=== PATIENT | male | born 1935 | race Caucasian/White ===

== ENCOUNTER → 2016-06-03 | Outpatient (CLI) | payer OTHER ==
[~2016-06-03] MED LIST: ASPCH81 PO; ASPI325T60 PO; ASPI81TA28 PO; BNC20 PO; CAPE150T PO; CYAN100T6 PO; ERGO500037 PO; Enteral Nutrition Formula PO; FERR1TAB23 PO; FRRS300 PO; FURO-85 PO; GLC/500 PO; LEVO25TA5 PO; LEVO50TA6 PO; LOSA50TA6 PO; MAGN400T6 PO; METO25TA3 PO; MGNO400 PO; NTRGSL/4 UT; NUTR-7 PO; OLME1TAB11 PO; OMEP20CA9 PO; ONDA8TAB6 PO; PANT40TA2 PO; POTA10CA28 PO; POTA10TA PO; PRED-301 PO; PRLSR20 PO; RXC5 PO; SIMV40TA2 PO; SYN25 PO; SYN75 PO; TAMS0.4C38 PO; VTMD PO; XLD/500 PO; [UNRECOGNIZED DRUG - CODE] PO; [UNRECOGNIZED DRUG - CODE] PO; [UNRECOGNIZED DRUG - OTHER] PO
[2016-06-03 09:49] LABS: CHOLESTEROL/HDL RATIO 3.1
== END | disposition home or self-care (01) ==
LOC: C.LAB1850 08:08
PROVIDERS: ATTEND Internal Medicine Cardiovascular Disease
DX: I25.10 Atherosclerotic heart disease of native coronary artery without angina pectoris (principal); E78.00 Pure hypercholesterolemia, unspecified

== ENCOUNTER → 2016-06-11 | Outpatient (CLI) | payer OTHER ==
--- NOTE | 2016-06-11 09:11 | DIAGNOSTIC IMAGING REPORT ---
PET/CT HISTORY: Colorectal carcinoma COLORECTAL CA TECHNIQUE: PET/CT was performed from the base of the skull through the pelvis following the intravenous administration of 14.5 mCi of F18-FDG. Non-contrast CT imaging was performed over the same range without breath-hold for attenuation correction of PET images and anatomic correlation, but not for primary interpretation as it is not of standard diagnostic quality. CT DOSE: COMPARISON: None. FINDINGS: HEAD AND NECK: There is no FDG-avid disease or significant lymphadenopathy in the imaged portions of the head and the neck. CHEST: There is right pleural effusion. Fibrotic and nodular changes of the pulmonary apices show no abnormal metabolic activity characteristics. There is no significant metabolically active hilar or mediastinal activity. There is an infrahilar right metabolically active nodule having SUV characteristics of approximately 2.2. No significant activity is identified within the pelvic pleural effusions. ABDOMEN/PELVIS: Potential low level activity of the central right and inferior right hepatic lobe which may indicate early metastatic disease although anatomic correlate is not seen in the few CT component. There is physiologic activity within the gastrointestinal and genitourinary tracts. There is no metabolically active periaortic adenopathy. There is physiologic activity within the urinary bladder. Inguinal regions appear unremarkable in terms of metabolic activity characteristics. MUSCULOSKELETAL: There is no FDG-avid or destructive bone lesion. IMPRESSION: 1. Right pleural effusion with at least one metabolically active nodule of the right infrahilar region. 2. Low-level foci of increased metabolic activity of the liver. 2 locations suggesting probable developing hepatic metastatic change. 3. The examination is suggestive of metastatic disease. Electronically signed by: Mike Thornton M.D. 06/11/2016 9:10 AM Dictated Date/Time: 06/11/2016 8:51 AM
== END | disposition home or self-care (01) ==
LOC: C.PET 06:28
PROVIDERS: ATTEND Internal Medicine Hematology & Oncology
DX: C18.7 Malignant neoplasm of sigmoid colon (principal); R91.1 Solitary pulmonary nodule

== ENCOUNTER 2016-06-14 13:52 | Inpatient (IN) | payer OTHER ==
[~2016-06-14] VITALS: Ht 165.1 cm; Wt 58.0 kg
[~2016-06-14 13:52] MED LIST changes: -ASPI325T60 PO; -ASPI81TA28 PO; -CAPE150T PO; -ERGO500037 PO; -Enteral Nutrition Formula PO; -FRRS300 PO; -FURO-85 PO; -LEVO50TA6 PO; -LOSA50TA6 PO; -MAGN400T6 PO; -MGNO400 PO; -NUTR-7 PO; -OLME1TAB11 PO; -ONDA8TAB6 PO; -PANT40TA2 PO; -POTA10CA28 PO; -POTA10TA PO; -PRED-301 PO; -PRLSR20 PO; -RXC5 PO; -SYN25 PO; -SYN75 PO; -VTMD PO; -XLD/500 PO; -[UNRECOGNIZED DRUG - CODE] PO; -[UNRECOGNIZED DRUG - OTHER] PO
[2016-06-14] MEDS ORDERED: SODIUM CHLORIDE 0.9% 1000ML 1,000 ML IV STA (14:19)
[2016-06-14] MEDS ORDERED: SODIUM CHLORIDE 0.9% 1000ML 500 ML IV STA (14:19)
[2016-06-14] MEDS ORDERED: ONDANSETRON INJ 2 MG/ML 2 ML VIAL IV STA ×2 (14:19→17:35)
--- NOTE | 2016-06-14 14:27 | EMERGENCY ROOM VISIT NOTE ---
History Report prepared by Vance: Cosme Dozier Under the Supervision of: Dr. Levy Salazar M.D. First contact with patient: 14:11 Chief Complaint: VOMITING Stated Complaint: PAIN IN STOMACH, THROWING UP History of Present Illness The patient is an 80 year old male who presents to the Emergency Room with complaints of episodes of vomiting that occurred around 14 hours ago. He states that he vomited 4 times in a row, and then he went to sleep. The patient says that he cannot eat anything without it coming back up. The patient's family notes that the patient was diagnosed with colon cancer a month ago, and is currently being worked up. The patient's family called the patient's primary care physician and cancer specialist earlier today, and the physicians recommended that the patient come here to be treated. The patient states that he has been feeling thirsty and dehydrated. He also notes that he was having abdominal pain when he was vomiting. Currently, he does not have any pain, but during his vomiting episodes, he said his pain was an 8 out of 10 in severity. The patient was sipping water this morning, but every time he sipped some water , he says that he would get abdominal pain. The patient's doctor says that this may be from being dehydrated. The patient's family notes that the patient was given a nausea pill earlier today. The patient denies any fevers, feelings of abdominal bloating, or melena. He says that he has been moving his bowels everyday, and had a small one this morning and one last night. The patient says that he has not had any recent sick contacts, and that he has not eaten any foods that would make him sick. The patient is known to be anemic. Source of History: patient, family Onset: Around 14 hours ago Position: other (global - vomiting) Symptom Intensity: 4 episodes Timing: other (episodes) Associated Symptoms: + abdominal pain, + nausea, No fevers, No melena Note: Associated symptoms: Feels thirsty and dehydrated. Denies abdominal bloating, bowel issues. Review of Systems See HPI for pertinent positives & negatives. A total of 10 systems reviewed and were otherwise negative. Past Medical & Surgical Medical Problems: (1) Coronary artery disease (2) Hypercholesteremia (3) Hypertension (4) Kidney stones (5) Myocardial infarct (6) Vertigo Family History FHx: heart disease FHx: kidney disease/stones Social History Smoking Status: Former Smoker Alcohol Use: none Drug Use: none Marital Status: Housing Status: lives with significant other Occupation Status: retired Current/Historical Medications Scheduled Cyanocobalamin (Vitamin B12 100 Mcg), 100 MCG PO DAILY Ferrous Sulfate (Iron), 325 MG PO DAILY Levothyroxine Sodium (Levothyroxine Sodium), 50 MCG PO DAILY Metformin Hcl (Glucophage), 500 MG PO BID Metoprolol Succ (Toprol Xl) (Toprol-Xl), 25 MG PO DAILY Nitroglycerin (Nitrostat), 0.4 MG UT PRN Olmesartan Medoxomil (Benicar), 20 MG PO DAILY Omeprazole (Prilosec), 1 CAP PO DAILY Simethicone (Mylanta Gas Minis), 311 MG PO DIRECTED Simvastatin (Zocor), 40 MG PO QPM Tamsulosin Hcl (Flomax), 0.4 MG PO DAILY Allergies Coded Allergies: Clarithromycin (Verified Allergy, Severe, "MAJOR RXN" ?, 06/12/16) Penicillins (Verified Allergy, Severe, "MAJOR RXN" ?, 06/12/16) Sulfa Antibiotics (Verified Allergy, Severe, "SULFA DRUGS": "MAJOR RXN"?, 06/12/16) Cephalosporins (Verified Allergy, Unknown, ?, 06/12/16) Diltiazem (Verified Allergy, Unknown, FLUSHING, 06/12/16) Morphine (Verified Allergy, Unknown, N/V, 06/12/16) Streptokinase (Verified Allergy, Unknown, ?, 06/12/16) Sulfonylureas (Verified Allergy, Unknown, RASH, 06/12/16) Codeine (Verified Adverse Reaction, Mild, NAUSEA / VOMITING, 06/12/16) Physical Exam Vital Signs Date Time Temp Pulse Resp B/P Pulse Ox O2 Delivery O2 Flow Rate FiO2 06/14/16 14:56 68 20 101/56 93 Room Air 06/14/16 13:55 36.9 74 20 98/58 96 Room Air Physical Exam GENERAL: Patient is in no acute distress. HEENT: No acute trauma, normocephalic atraumatic, mucous membranes dry, no nasal congestion, no scleral icterus. NECK: No stridor, no adenopathy, no meningismus, trachea is midline. LUNGS: Clear to auscultation bilaterally, no wheeze, no rhonchi, breath sounds equal. HEART: Without murmurs gallops or rubs, regular rate and rhythm. ABDOMEN: Soft, nontender, bowel sounds positive, no hernias, no peritonitis. Mild abdominal distension. EXTREMITIES: No cyanosis or edema, full range of motion of all the joints without pain or difficulty, no signs for acute trauma. NEUROLOGIC: Oriented x 3, no acute motor or sensory deficits, no focal weakness. SKIN: No rash, no jaundice, no diaphoresis. Medical Decision & Procedures ER Provider Diagnostic Interpretation: X ray results and stated below per my interpretation and radiologist interpretation. Other radiology results and stated below per my review and radiologist interpretation: CHEST ONE VIEW PORTABLE CLINICAL HISTORY: ABDOMINAL PAIN/GI pain COMPARISON STUDY: 02/15/2013 FINDINGS: The bones soft tissues and hemidiaphragms are normal. The cardiomediastinal silhouette is normal. The lungs are clear. The pulmonary vasculature is normal. Chronic right apical pleural and parenchymal scarring. IMPRESSION: Negative chest. Electronically signed by: Mike Thornton M.D. 06/14/2016 2:49 PM Dictated Date/Time: 06/14/2016 2:48 PM ABDOMEN AND PELVIS CT WITHOUT CONTRAST CT DOSE: 259.62 mGy.cm HISTORY: Pain ABD PAIN, POSSIBLE OBSTRUCTION, NO CONTRAST TECHNIQUE: Multiaxial CT images of the abdomen and pelvis were performed without contrast. COMPARISON STUDY: 10/29/2008 FINDINGS: Right pleural effusion. Mild bibasilar interstitial infiltrative-type changes. Trace amount of perihepatic ascites. Several nonobstructing renal calcifications. No evidence renal hydronephrosis. Chronic extrarenal pelvis on the right. Multiple fluid-filled somewhat distended loops small bowel. Appearance is consistent with that of distal small bowel partial obstructive change. Colon is negative for distention. Multiple bladder calculi are noted. Etiology of the obstructive process is not confirmed. There may be a trace amount of infiltrative change of the fat right lower quadrant which is nonspecific. Inguinal regions are unremarkable. IMPRESSION: 1. Partial distal small bowel obstruction with multiple fluid-filled slightly distended loops of small bowel. 2. Etiology is unknown. 3. Multiple renal calcifications as well as bladder calculi. 4. No evidence for colonic distention. 5. Trace trace ascites 6. Right pleural effusion. 7. Mild bibasilar interstitial infiltrative change. Electronically signed by: Mike Thornton M.D. 06/14/2016 4:00 PM Dictated Date/Time: 06/14/2016 3:54 PM Laboratory Results 06/14/16 14:35 Red Blood Count 4.07, Mean Corpuscular Volume 73.0, Mean Corpuscular Hemoglobin 21.9, Mean Corpuscular Hemoglobin Concent 30.0, Mean Platelet Volume 9.8, Neutrophils (%) (Auto) 72.4, Lymphocytes (%) (Auto) 19.2, Monocytes (%) (Auto) 7.8, Eosinophils (%) (Auto) 0.2, Basophils (%) (Auto) 0.2, Neutrophils # (Auto) 7.94, Lymphocytes # (Auto) 2.11, Monocytes # (Auto) 0.86, Eosinophils # (Auto) 0.02, Basophils # (Auto) 0.02 06/14/16 14:35 Test 06/14/16 14:35 White Blood Count 10.97 K/uL (4.8-10.8) Red Blood Count 4.07 M/uL (4.7-6.1) Hemoglobin 8.9 g/dL (14.0-18.0) Hematocrit 29.7 % (42-52) Mean Corpuscular Volume 73.0 fL (80-100) Mean Corpuscular Hemoglobin 21.9 pg (25-34) Mean Corpuscular Hemoglobin Concent 30.0 g/dl (32-36) Platelet Count 616 K/uL (130-400) Mean Platelet Volume 9.8 fL (7.4-10.4) Neutrophils (%) (Auto) 72.4 % Lymphocytes (%) (Auto) 19.2 % Monocytes (%) (Auto) 7.8 % Eosinophils (%) (Auto) 0.2 % Basophils (%) (Auto) 0.2 % Neutrophils # (Auto) 7.94 K/uL (1.4-6.5) Lymphocytes # (Auto) 2.11 K/uL (1.2-3.4) Monocytes # (Auto) 0.86 K/uL (0.11-0.59) Eosinophils # (Auto) 0.02 K/uL (0-0.5) Basophils # (Auto) 0.02 K/uL (0-0.2) RDW Standard Deviation 48.7 fL (36.4-46.3) RDW Coefficient of Variation 18.8 % (11.5-14.5) Immature Granulocyte % (Auto) 0.2 % Immature Granulocyte # (Auto) 0.02 K/uL (0.00-0.02) Hypochromasia PRESENT Anisocytosis PRESENT Ovalocytes 1+ Schistocytes 1+ Anion Gap 8.0 mmol/L (3-11) Estimated GFR () 72.6 Estimated GFR (Non- 62.6 BUN/Creatinine Ratio 20.9 (10-20) Calcium Level 8.2 mg/dl (8.5-10.1) Total Bilirubin 0.4 mg/dl (0.2-1) Aspartate Amino Transf (AST/SGOT) 16 U/L (15-37) Alanine Aminotransferase (ALT/SGPT) 11 U/L (12-78) Alkaline Phosphatase 76 U/L (45-117) Troponin I 0.030 ng/ml (0-0.045) Total Protein 7.2 gm/dl (6.4-8.2) Albumin 2.7 gm/dl (3.4-5.0) Globulin 4.5 gm/dl (2.5-4.0) Albumin/Globulin Ratio 0.6 (0.9-2) Lipase 47 U/L (73-393) 25-Hydroxy Vitamin D Total 7.0 ng/ml (30-100) Laboratory results reviewed by me. Medications Administered Medications (Trade) Dose Ordered Sig/Lenka Route Start Time Stop Time Status Last Admin Dose Admin Sodium Chloride (Nss 1000ml) 500 ml @ 999 mls/hr Q31M STAT IV 06/14/16 14:19 06/14/16 14:49 DC 06/14/16 14:19 999 MLS/HR Ondansetron HCl 4 mg 4 mg NOW STAT IV 06/14/16 14:19 06/14/16 14:22 DC 06/14/16 14:59 4 MG Sodium Chloride (Nss 1000ml) 1,000 ml @ 200 mls/hr Q5H STAT IV 06/14/16 14:19 06/14/16 18:44 DC 06/14/16 14:19 200 MLS/HR ECG Indication: vomiting Rate (beats per minute): 69 Rhythm: normal sinus Findings: PAC, no acute ischemic change (no obvious ischemia), other (RBBB) ED Course 1412: The patient was evaluated in room C12B. A complete history and physical exam was performed. 1419: Ordered NSS 1000 ml @ 200 mls/hr IV, Zofran Inj 4 mg IV, NSS 500 ml @ 999 mls/hr IV. 1610: I reevaluated the patient and updated his family. We will try to place an NG tube and see if it helps him. The patient verbally expressed understanding and agreement of the treatment plan. The patient will be evaluated for further treatment. 1629: I discussed the patient with Dr. Michele VÁSQUEZ general surgery - he says to talk to medicine. 1632: I discussed the patient with Dr. Steffanie VÁSQUEZ dentist private practice - he will evaluate the patient for further treatment. Medical Decision Differential diagnosis includes but is not limited to bowel obstruction, dehydration, electrolyte imbalance, viral illness, food borne illness, hernia. There is a mild leukocytosis, possibly consistent with pain or his vomiting. The patient is anemic however, his hemoglobin is improved from a few days ago. There was no significant electrolyte abnormality, kidney failure, hepatitis or pancreatitis. Chest x-ray does not show pneumonia or free air. EKG shows a sinus rhythm with PACs, there was no acute ischemia. A right bundle branch block was present. Abdominal and pelvis CT shows a small bowel obstruction. The patient received IV Zofran for nausea, IV saline for hydration. He did not require anything for pain. With the findings of bowel obstruction, I did order for an NG tube. I spoke to the patient about his findings, I talked to case management. I did speak with the on-call surgeon. The on-call hospitalist was then consulted. Admission/observation is warranted. Consults Time Called: 1620 Consulting Physician: Dr. Michele VÁSQUEZ general surgery Returned Call: 1629 I discussed the patient with Dr. Michele VÁSQUEZ general surgery - he says to talk to medicine. Additional Consults: Time Called: 1629 Consulted Physician: Dr. Steffanie VÁSQUEZ dentist private practice Returned Call: 1632 Additional Comments: I discussed the patient with Dr. Steffanie VÁSQUEZ dentist private practice - he will evaluate the patient for further treatment. Impression Primary Impression: Small bowel obstruction Additional Impressions: Dehydration Vomiting Scribe Attestation The scribe's documentation has been prepared under my direction and personally reviewed by me in its entirety. I confirm that the note above accurately reflects all work, treatment, procedures, and medical decision making performed by me. Departure Information Dispostion Being Evaluated By Hospitalist Sonido Rhodes M.D. (PCP) Patient Instructions My [facility] Problem Qualifiers
--- NOTE | 2016-06-14 14:50 | DIAGNOSTIC IMAGING REPORT ---
CHEST ONE VIEW PORTABLE CLINICAL HISTORY: ABDOMINAL PAIN/GI pain COMPARISON STUDY: 02/15/2013 FINDINGS: The bones soft tissues and hemidiaphragms are normal. The cardiomediastinal silhouette is normal. The lungs are clear. The pulmonary vasculature is normal. Chronic right apical pleural and parenchymal scarring. IMPRESSION: Negative chest. Electronically signed by: Mike Thornton M.D. 06/14/2016 2:49 PM Dictated Date/Time: 06/14/2016 2:48 PM
[2016-06-14 14:53] LABS: BASO % 0.2 %; BASO ABS # 0.02 K/uL (0-0.2); EOS % 0.2 %; HEMATOCRIT 29.7 % (42-52); IG% 0.2 %; LYMPH % 19.2 %; LYMPH ABS # 2.11 K/uL (1.2-3.4); MEAN CORPUSCULAR HEMOGLOBIN 21.9 pg (25-34); MEAN PLATELET VOLUME 9.8 fL (7.4-10.4); MONO % 7.8 %; NEUT % 72.4 %; PLATELET COUNT 616 K/uL (130-400); RED BLOOD COUNT 4.07 M/uL (4.7-6.1); WHITE BLOOD COUNT 10.97 K/uL (4.8-10.8)
[2016-06-14 15:10] LABS: ALT/SGPT 11 U/L (12-78); AST/SGOT 16 U/L (15-37); BLOOD UREA NITROGEN 23 mg/dl (7-18); BUN/CREATININE RATIO 20.9 (10-20); CALCIUM 8.2 mg/dl (8.5-10.1); CARBON DIOXIDE 30 mmol/L (21-32); CHLORIDE 107 mmol/L (98-107); GLUCOSE 111 mg/dl (70-99); POTASSIUM 3.9 mmol/L (3.5-5.1); SODIUM 145 mmol/L (136-145)
[2016-06-14 15:15] LABS: ALB/GLOB RATIO 0.6 (0.9-2); ALKALINE PHOSPHATASE 76 U/L (45-117)
[2016-06-14] MEDS ORDERED: OLME1TAB11 PO (15:17)
[2016-06-14 15:30] LABS: ANISOCYTOSIS PRESENT; COMPLETE YES; HYPOCHROMIA PRESENT; OVALOCYTES 1+; SCHISTOCYTES 1+
--- NOTE | 2016-06-14 16:01 | DIAGNOSTIC IMAGING REPORT ---
ABDOMEN AND PELVIS CT WITHOUT CONTRAST CT DOSE: 259.62 mGy.cm HISTORY: Pain ABD PAIN, POSSIBLE OBSTRUCTION, NO CONTRAST TECHNIQUE: Multiaxial CT images of the abdomen and pelvis were performed without contrast. COMPARISON STUDY: 10/29/2008 FINDINGS: Right pleural effusion. Mild bibasilar interstitial infiltrative-type changes. Trace amount of perihepatic ascites. Several nonobstructing renal calcifications. No evidence renal hydronephrosis. Chronic extrarenal pelvis on the right. Multiple fluid-filled somewhat distended loops small bowel. Appearance is consistent with that of distal small bowel partial obstructive change. Colon is negative for distention. Multiple bladder calculi are noted. Etiology of the obstructive process is not confirmed. There may be a trace amount of infiltrative change of the fat right lower quadrant which is nonspecific. Inguinal regions are unremarkable. IMPRESSION: 1. Partial distal small bowel obstruction with multiple fluid-filled slightly distended loops of small bowel. 2. Etiology is unknown. 3. Multiple renal calcifications as well as bladder calculi. 4. No evidence for colonic distention. 5. Trace trace ascites 6. Right pleural effusion. 7. Mild bibasilar interstitial infiltrative change. Electronically signed by: Mike Thornton M.D. 06/14/2016 4:00 PM Dictated Date/Time: 06/14/2016 3:54 PM
[2016-06-14] MEDS ORDERED: ONDANSETRON INJ 2 MG/ML 2 ML VIAL IV PRN ×2 (17:00→17:45)
[2016-06-14] MEDS ORDERED: MEPERIDINE HCL 25 MG/ML CARP IV PRN (17:45)
[2016-06-14] MEDS ORDERED: NITROGLYCERIN 0.4 MG SL PER TAB CHARGE SL PRN (17:45)
--- NOTE | 2016-06-14 17:51 | History and Physical ---
History & Physical Date & Time of Service: June 14, 2016 at 17:51 Chief Complaint: Pain In Stomach, Throwing Up Primary Care Physician: Sonido Riojas M.D. Past Medical/Surgical History Medical Problems: (1) Coronary artery disease Status: Chronic (2) Hypercholesteremia Status: Chronic (3) Hypertension Status: Chronic (4) Kidney stones Status: Chronic (5) Myocardial infarct Status: Resolved (6) Vertigo Status: Chronic Family History FHx: heart disease FHx: kidney disease/stones Social History Smoking Status: Former Smoker Drug Use: none Marital Status: Housing status: lives with family Occupational Status: retired Immunizations History of Influenza Vaccine: Yes Influenza Vaccine Date: Nov 03, 2012 History of Tetanus Vaccine?: UTD History of Pneumococcal: Unknown History of Hepatitis B Vaccine: Unknown Multi-Drug Resistant Organisms History of MDRO: No Allergies Coded Allergies: Clarithromycin (Verified Allergy, Severe, "MAJOR RXN" ?, 06/12/16) Penicillins (Verified Allergy, Severe, "MAJOR RXN" ?, 06/12/16) Sulfa Antibiotics (Verified Allergy, Severe, "SULFA DRUGS": "MAJOR RXN"?, 06/12/16) Cephalosporins (Verified Allergy, Unknown, ?, 06/12/16) Diltiazem (Verified Allergy, Unknown, FLUSHING, 06/12/16) Morphine (Verified Allergy, Unknown, N/V, 06/12/16) Streptokinase (Verified Allergy, Unknown, ?, 06/12/16) Sulfonylureas (Verified Allergy, Unknown, RASH, 06/12/16) Codeine (Verified Adverse Reaction, Mild, NAUSEA / VOMITING, 06/12/16) Home Medications Scheduled Cyanocobalamin (Vitamin B12 100 Mcg), 100 MCG PO DAILY Ferrous Sulfate (Iron), 325 MG PO DAILY Levothyroxine Sodium (Levothyroxine Sodium), 50 MCG PO DAILY Metformin Hcl (Glucophage), 500 MG PO BID Metoprolol Succ (Toprol Xl) (Toprol-Xl), 25 MG PO DAILY Nitroglycerin (Nitrostat), 0.4 MG UT PRN Olmesartan Medoxomil (Benicar), 20 MG PO DAILY Omeprazole (Prilosec), 1 CAP PO DAILY Simethicone (Mylanta Gas Minis), 311 MG PO DIRECTED Simvastatin (Zocor), 40 MG PO QPM Tamsulosin Hcl (Flomax), 0.4 MG PO DAILY Physical Exam Vital Signs Date Time Temp Pulse Resp B/P Pulse Ox O2 Delivery O2 Flow Rate FiO2 06/14/16 17:13 74 18 108/58 95 Room Air 06/14/16 14:56 68 20 101/56 93 Room Air 06/14/16 13:55 36.9 74 20 98/58 96 Room Air Diagnostics Laboratory Results Results Past 24 Hours Test 06/14/16 14:35 Range/Units White Blood Count 10.97 4.8-10.8 K/uL Red Blood Count 4.07 4.7-6.1 M/uL Hemoglobin 8.9 14.0-18.0 g/dL Hematocrit 29.7 42-52 % Mean Corpuscular Volume 73.0 80-100 fL Mean Corpuscular Hemoglobin 21.9 25-34 pg Mean Corpuscular Hemoglobin Concent 30.0 32-36 g/dl Platelet Count 616 130-400 K/uL Mean Platelet Volume 9.8 7.4-10.4 fL Neutrophils (%) (Auto) 72.4 % Lymphocytes (%) (Auto) 19.2 % Monocytes (%) (Auto) 7.8 % Eosinophils (%) (Auto) 0.2 % Basophils (%) (Auto) 0.2 % Neutrophils # (Auto) 7.94 1.4-6.5 K/uL Lymphocytes # (Auto) 2.11 1.2-3.4 K/uL Monocytes # (Auto) 0.86 0.11-0.59 K/uL Eosinophils # (Auto) 0.02 0-0.5 K/uL Basophils # (Auto) 0.02 0-0.2 K/uL RDW Standard Deviation 48.7 36.4-46.3 fL RDW Coefficient of Variation 18.8 11.5-14.5 % Immature Granulocyte % (Auto) 0.2 % Immature Granulocyte # (Auto) 0.02 0.00-0.02 K/uL Hypochromasia PRESENT Anisocytosis PRESENT Ovalocytes 1+ Schistocytes 1+ Sodium Level 145 136-145 mmol/L Potassium Level 3.9 3.5-5.1 mmol/L Chloride Level 107 98-107 mmol/L Carbon Dioxide Level 30 21-32 mmol/L Anion Gap 8.0 3-11 mmol/L Blood Urea Nitrogen 23 7-18 mg/dl Creatinine 1.10 0.60-1.40 mg/dl Estimated GFR () 72.6 Estimated GFR (Non- 62.6 BUN/Creatinine Ratio 20.9 10-20 Random Glucose 111 70-99 mg/dl Calcium Level 8.2 8.5-10.1 mg/dl Total Bilirubin 0.4 0.2-1 mg/dl Aspartate Amino Transf (AST/SGOT) 16 15-37 U/L Alanine Aminotransferase (ALT/SGPT) 11 12-78 U/L Alkaline Phosphatase 76 45-117 U/L Troponin I 0.030 0-0.045 ng/ml Total Protein 7.2 6.4-8.2 gm/dl Albumin 2.7 3.4-5.0 gm/dl Globulin 4.5 2.5-4.0 gm/dl Albumin/Globulin Ratio 0.6 0.9-2 Lipase 47 73-393 U/L Impression Assessment and Plan admit #[id number] VTE Prophylaxis VTE Risk Assessment Done? Y/N: Yes Risk Level: Moderate Given or contraindicated: Unfractionated heparin SQ
[2016-06-14 18:40] VITALS: BP 105/58; PULSE 71; TEMP 37.1; O2SAT 96
[2016-06-14] MEDS ORDERED: DEXTROSE 50% 50 ML SYR IV PRN (19:00)
[2016-06-14] MEDS ORDERED: IRON SUCROSE INJ 100 MG in SODIUM CHLORIDE 0.9% 100ML 100 ML IV SCH (19:00)
[2016-06-14] MEDS ORDERED: GLUCOSE 40% GEL 15 GM TUBE PO PRN (19:00)
[2016-06-14] MEDS ORDERED: GLUCAGON FOR INJ 1 MG VIAL SQ PRN (19:00)
[2016-06-14] MEDS ORDERED: GLUCOSE 10 TABS/TUBE PO PRN (19:00)
[2016-06-14] MEDS ORDERED: MEPERIDINE HCL 25 MG/ML CARP IV ONE (19:00)
[2016-06-14 19:11] LABS: URINE APPEARANCE CLEAR (CLEAR); URINE BILIRUBIN NEG (NEG); URINE COLOR DK YELLOW; URINE NITRITE NEG (NEG); URINE SPECIFIC GRAVITY 1.023 (1.000-1.030); UROBILINOGEN NEG (NEG); ZZUR CULT IF INDIC CLEAN CATCH NO
[2016-06-14 19:18] LABS: MANUAL MICROSCOPIC REQUIRED? NO; REVIEW REQ? NO
[2016-06-14 19:36] VITALS: BP 105/58; PULSE 71; TEMP 37.1; Ht 165.1 cm; Wt 58.0 kg
[2016-06-14] MEDS: SODIUM CHLOR 0.45% + 20MEQ KCL 1,000 ML IV SCH (19:59)
[2016-06-14] MEDS ORDERED: NURSING VERBAL MED ORDER ONE (21:00)
[2016-06-14] MEDS ORDERED: INSULIN ASPART 100 UNITS/ML 3 ML PEN SC SCH (21:00)
[2016-06-14] MEDS: HEPARIN SOD 5000 UNIT/0.5 ML CARP SQ SCH (22:07)
[2016-06-14 23:15] VITALS: BP 99/61; PULSE 64; TEMP 36.4; O2SAT 94
[2016-06-15] MEDS: SODIUM CHLOR 0.45% + 20MEQ KCL 1,000 ML IV SCH ×2 (05:57→16:48)
[2016-06-15] MEDS: INSULIN ASPART 100 UNITS/ML 3 ML PEN SC SCH ×4 (06:00→18:29)
[2016-06-15 06:52] LABS: BASO % 0.1 %; BASO ABS # 0.01 K/uL (0-0.2); EOS % 0.7 %; IG% 0.3 %; LYMPH % 25.7 %; LYMPH ABS # 1.89 K/uL (1.2-3.4); MEAN CORPUSCULAR HEMOGLOBIN 21.6 pg (25-34); MEAN CORPUSCULAR HGB CONC 29.3 g/dl (32-36); MEAN PLATELET VOLUME 9.8 fL (7.4-10.4); MONO % 7.4 %; NEUT % 65.8 %; PLATELET COUNT 487 K/uL (130-400); RED BLOOD COUNT 3.65 M/uL (4.7-6.1); WHITE BLOOD COUNT 7.34 K/uL (4.8-10.8)
[2016-06-15 07:11] VITALS: BP 89/53; PULSE 55; TEMP 36.4; O2SAT 94
[2016-06-15 07:22] LABS: BUN/CREATININE RATIO 22.2 (10-20); CALCIUM 7.2 mg/dl (8.5-10.1); CREATININE 0.86 mg/dl (0.60-1.40)
[2016-06-15 07:36] LABS: ANISOCYTOSIS PRESENT; COMPLETE YES; OVALOCYTES 2+; SCHISTOCYTES OCCASIONAL
[2016-06-15] MEDS: PANTOprazole INJ 40 MG in SYRINGE 0 ML IV SCH ×2 (08:58→21:07)
[2016-06-15] MEDS: HEPARIN SOD 5000 UNIT/0.5 ML CARP SQ SCH ×2 (09:06→21:07)
[2016-06-15 10:24] VITALS: BP 90/55; PULSE 60
[2016-06-15 11:21] LABS: HEMATOCRIT 26.8 % (42-52)
[2016-06-15 11:45] LABS: TOTAL IRON BINDING CAPACITY 202 mcg/dl (250-450)
--- NOTE | 2016-06-15 12:06 | Progress Note ---
Subjective Date of Service: June 15, 2016. Subjective pt seen with NGT still having some loose stool, abdominal pain in lower quadrants, family at bedside and updated Problem List Medical Problems: (1) Dehydration Status: Acute (2) Small bowel obstruction Status: Acute (3) Vomiting Status: Acute Review of Systems Constitutional: + fatigue, + weakness, No chills, No fever Respiratory: No cough, No dyspnea on exertion, No shortness of breath Cardiac: No chest pain, No edema Abdomen: + diarrhea, + nausea, + pain, + vomiting Male : No dysuria, No urinary frequency Objective Vital Signs Date Time Temp Pulse Resp B/P Pulse Ox O2 Delivery O2 Flow Rate FiO2 06/15/16 10:24 60 90/55 06/15/16 07:45 Room Air 06/15/16 07:11 36.4 55 16 89/53 94 Room Air 06/15/16 00:20 Room Air 06/14/16 23:15 36.4 64 18 99/61 94 Room Air 06/14/16 19:36 37.1 71 12 105/58 Room Air 06/14/16 18:40 37.1 71 12 105/58 96 Room Air 06/14/16 18:25 68 20 100/55 96 06/14/16 17:13 74 18 108/58 95 Room Air 06/14/16 14:56 68 20 101/56 93 Room Air 06/14/16 13:55 36.9 74 20 98/58 96 Room Air Physical Exam General Appearance: + moderate distress, + thin Neck: supple, no JVD Respiratory/Chest: chest non-tender, lungs clear Cardiovascular: regular rate, rhythm, no murmur Abdomen: + abnormal bowel sounds, + distended, + guarding, + tenderness Extremities: no pedal edema, no calf tenderness Neurologic/Psychiatric: alert, oriented x 3 Laboratory Results Last 24 Hours Test 06/14/16 14:35 06/14/16 18:55 06/14/16 19:30 06/15/16 00:17 White Blood Count 10.97 K/uL Red Blood Count 4.07 M/uL Hemoglobin 8.9 g/dL Hematocrit 29.7 % Mean Corpuscular Volume 73.0 fL Mean Corpuscular Hemoglobin 21.9 pg Mean Corpuscular Hemoglobin Concent 30.0 g/dl Platelet Count 616 K/uL Mean Platelet Volume 9.8 fL Neutrophils (%) (Auto) 72.4 % Lymphocytes (%) (Auto) 19.2 % Monocytes (%) (Auto) 7.8 % Eosinophils (%) (Auto) 0.2 % Basophils (%) (Auto) 0.2 % Neutrophils # (Auto) 7.94 K/uL Lymphocytes # (Auto) 2.11 K/uL Monocytes # (Auto) 0.86 K/uL Eosinophils # (Auto) 0.02 K/uL Basophils # (Auto) 0.02 K/uL RDW Standard Deviation 48.7 fL RDW Coefficient of Variation 18.8 % Immature Granulocyte % (Auto) 0.2 % Immature Granulocyte # (Auto) 0.02 K/uL Hypochromasia PRESENT Anisocytosis PRESENT Ovalocytes 1+ Schistocytes 1+ Sodium Level 145 mmol/L Potassium Level 3.9 mmol/L Chloride Level 107 mmol/L Carbon Dioxide Level 30 mmol/L Anion Gap 8.0 mmol/L Blood Urea Nitrogen 23 mg/dl Creatinine 1.10 mg/dl Estimated GFR () 72.6 Estimated GFR (Non- 62.6 BUN/Creatinine Ratio 20.9 Random Glucose 111 mg/dl Calcium Level 8.2 mg/dl Total Bilirubin 0.4 mg/dl Aspartate Amino Transf (AST/SGOT) 16 U/L Alanine Aminotransferase (ALT/SGPT) 11 U/L Alkaline Phosphatase 76 U/L Troponin I 0.030 ng/ml Total Protein 7.2 gm/dl Albumin 2.7 gm/dl Globulin 4.5 gm/dl Albumin/Globulin Ratio 0.6 Lipase 47 U/L 25-Hydroxy Vitamin D Total 7.0 ng/ml Urine Color DK YELLOW Urine Appearance CLEAR Urine pH 5.0 Urine Specific [place] 1.023 Urine Protein NEG Urine Glucose (UA) NEG Urine Ketones TRACE Urine Occult Blood NEG Urine Nitrite NEG Urine Bilirubin NEG Urine Urobilinogen NEG Urine Leukocyte Esterase NEG Bedside Glucose 107 mg/dl 88 mg/dl Test 06/15/16 06:01 06/15/16 06:19 06/15/16 11:00 Bedside Glucose 87 mg/dl White Blood Count 7.34 K/uL Red Blood Count 3.65 M/uL Hemoglobin 7.9 g/dL 8.1 g/dL Hematocrit 27.0 % 26.8 % Mean Corpuscular Volume 74.0 fL Mean Corpuscular Hemoglobin 21.6 pg Mean Corpuscular Hemoglobin Concent 29.3 g/dl Platelet Count 487 K/uL Mean Platelet Volume 9.8 fL Neutrophils (%) (Auto) 65.8 % Lymphocytes (%) (Auto) 25.7 % Monocytes (%) (Auto) 7.4 % Eosinophils (%) (Auto) 0.7 % Basophils (%) (Auto) 0.1 % Neutrophils # (Auto) 4.83 K/uL Lymphocytes # (Auto) 1.89 K/uL Monocytes # (Auto) 0.54 K/uL Eosinophils # (Auto) 0.05 K/uL Basophils # (Auto) 0.01 K/uL RDW Standard Deviation 50.0 fL RDW Coefficient of Variation 18.9 % Immature Granulocyte % (Auto) 0.3 % Immature Granulocyte # (Auto) 0.02 K/uL Anisocytosis PRESENT Ovalocytes 2+ Schistocytes OCCASIONAL Sodium Level 145 mmol/L Potassium Level 4.0 mmol/L Chloride Level 111 mmol/L Carbon Dioxide Level 27 mmol/L Anion Gap 7.0 mmol/L Blood Urea Nitrogen 19 mg/dl Creatinine 0.86 mg/dl Est Creatinine Clear Calc Drug Dose 55.3 ml/min Estimated GFR () 94.3 Estimated GFR (Non- 81.3 BUN/Creatinine Ratio 22.2 Random Glucose 84 mg/dl Calcium Level 7.2 mg/dl Iron Level 43 mcg/dl Total Iron Binding Capacity 202 mcg/dl Assessment and Plan 80 M with recent diagnosis of colon cancer and some concern for small mets on recent PET scan here with SBO SBO ngt is placed and surgical consult symptom control and hydration anemia, iron deficiency, chronic disease with concern for acute blood loss component, follow hgb and on ppi IV HTN holding metoprolol watch for rebound tachy BPH holding flomax may need nguyen DVT prevention heparin cautiously with concern for anemia
[2016-06-15 15:13] VITALS: BP 106/57; PULSE 56; TEMP 36.5; O2SAT 98
[2016-06-15 16:00] VITALS: O2SAT 98
[2016-06-15] MEDS ORDERED: NURSING VERBAL MED ORDER ONE (18:45)
[2016-06-15] MEDS: LACTATED RINGER'S 1000ML 1,000 ML IV SCH (18:52)
[2016-06-15 23:00] VITALS: BP 100/47; PULSE 65; TEMP 37; O2SAT 96
[2016-06-16] MEDS ORDERED: NURSING VERBAL MED ORDER ONE (00:15)
[2016-06-16] MEDS: LACTATED RINGER'S 1000ML 1,000 ML IV SCH ×2 (04:54→16:37)
--- NOTE | 2016-06-16 05:31 | SURGICAL CONSULTATION ---
DATE OF CONSULTATION: 06/15/2016 HISTORY OF PRESENT ILLNESS: I have been asked by Dr. Valiente to see this 80-year-old male who has a diagnosis of colon cancer that is now undergoing further workup and presented to the Emergency Room with a 1 day history of nausea, vomiting, and abdominal pain. He had never had this before. He had multiple episodes of vomiting. He was not able to keep anything down that he would eat. The discomfort was crampy in nature, at times but sharp in nature. There was some relief when he would vomit. He had no hematemesis. His bowels had been moving on a daily basis. There was 1 small bowel movement on the day of admission. He has not had melena or hematochezia. Over the last 18 hours, he has had multiple bowel movements; some that are formed and others that have been liquid. There is still no melena or hematochezia continuing. PAST MEDICAL HISTORY: For coronary artery disease, hypertension, hypercholesterolemia, myocardial infarction, nephrolithiasis, colon cancer, and diabetes mellitus. PAST SURGICAL HISTORY: T\T\A and appendectomy. MEDICATIONS AT HOME: Include levothyroxine, Glucophage, Toprol-XL, Nitrostat, Benicar, Prilosec, Zocor, and Flomax. ALLERGIES: CLARITHROMYCIN, PENICILLIN, SULFA, CEPHALOSPORINS, DILTIAZEM, MORPHINE, STREPTOKINASE, SULFONYLUREAS, AND CODEINE. PHYSICAL EXAMINATION: GENERAL: Reveals a cachectic male who is resting comfortably and appears in no acute distress. VITAL SIGNS: Blood pressure 106/57, heart rate 56, respirations 16, temperature 36.5, pulse oximetry is 98% on room air. HEENT: Reveals the sclerae to be anicteric. Mucous membranes are moist. NECK: Supple with no adenopathy or thyromegaly. BACK: No spine or CVA tenderness. LUNGS: Clear. HEART: Regular. ABDOMEN: Normoactive bowel sounds. It is soft, nondistended, nontender with no masses or hepatomegaly. LABORATORY DATA: WBC 7.34. H\T\H is 7.9 and 27.0, platelet count 487,000. Sodium 145, potassium 4.0, chloride 111, CO2 27, BUN 19, creatinine 0.86. Glucose 84. IMAGING DATA: CT scan of the abdomen and pelvis shows partial distal small bowel obstruction with multiple fluid filled slightly distended loops of small bowel, multiple renal calcifications, no colonic distention, trace ascites, right pleural effusion. ASSESSMENT AND PLAN: This patient had evidence of bowel obstruction, but that has now resolved spontaneously. There is no evidence of peritonitis. Because the bowels are moving, I think it would be reasonable to remove his NG tube and begin clear liquids. We will continue to follow with you.
[2016-06-16 06:28] VITALS: BP 113/63
[2016-06-16 07:09] LABS: HEMATOCRIT 26.7 % (42-52); MEAN CELL VOLUME 73.8 fL (80-100); MEAN CORPUSCULAR HEMOGLOBIN 22.4 pg (25-34); MEAN CORPUSCULAR HGB CONC 30.3 g/dl (32-36); PLATELET COUNT 510 K/uL (130-400); RED BLOOD COUNT 3.62 M/uL (4.7-6.1); WHITE BLOOD COUNT 6.75 K/uL (4.8-10.8)
--- NOTE | 2016-06-16 07:17 | HISTORY & PHYSICAL EXAMINATION ---
DATE OF ADMISSION: 06/14/2016 CHIEF COMPLAINT: Abdominal pain, nausea, and vomiting. HISTORY OF PRESENT ILLNESS: History is obtained in large part from the ER and the family as by the time I see patient, he has just had an NG tube placed and he has monumentally unhappy about this, making it difficult to talk about anything else; however, it sounds like he has had off again on again abdominal pain and some nausea over the last month, but really the worst possible episode he has had of that started last night he threw up about 4 times and then went to sleep, could not really eat anything without it coming right back up. Abdominal pain especially worse when vomiting. Feeling thirsty and dehydrated. He had been given a pill for nausea earlier, but it does not seem like it has really helped much. He has been moving his bowels okay. REVIEW OF SYSTEMS: Mostly positive for discomfort surrounding the NG tube which has just been placed about 10 minutes before I meet the gentleman. Review of systems is otherwise negative as best can be ascertained. Of note, he just maybe 3 weeks ago was diagnosed with metastatic colon cancer. He had a colonoscopy followed by a fairly expedited outpatient workup and has just met with his PCP and oncology about this and also just met with pulmonary 3 days ago because of concern on a pulmonary nodule as far as whether or not it was metastatic from the colon cancer versus a separate primary. Because of all of this, he and his do seem more than a bit overwhelmed understandably. PAST MEDICAL HISTORY: Most notable for the new diagnosis of metastatic colon cancer; lung nodule of apparently malignant, but uncertain etiology; BPH; hyperlipidemia; GERD; hypergammaglobulinemia; hypertension; hypothyroidism; iron deficiency anemia; nephrolithiasis; type 2 diabetes; vitamin B12 deficiency; vitamin D deficiency. MEDICATIONS: Aspirin 81 mg daily, vitamin B12 1000 mcg daily, Synthroid 50 mcg daily, losartan 50 mg daily, metformin 500 mg b.i.d., Toprol-XL 25 mg daily, nitroglycerin 0.4 under the tongue p.r.n. chest pain, Benicar 20 mg daily, omeprazole 20 mg daily, Zofran 4 mg q. 8 hours p.r.n. nausea, simvastatin 40 mg daily, Flomax 0.4 daily, Tylenol p.r.n. pain, Vitamin C 500 mg daily. PAST SURGICAL HISTORY: Most relevant for his recent colonoscopy diagnosing his colon cancer. He has also had an appendectomy, sinus surgery, tonsillectomy and treatment of an elbow fracture. FAMILY HISTORY: Includes coronary disease and an CT in his brother, Alzheimer disease in mom, bone cancer in dad, and apparently leukemia in dad. 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 Former smoker, quit I believe it is documented in 1990. No significant alcohol use. ALLERGIES: CEPHALOSPORIN; CLARITHROMYCIN; CODEINE, WHICH CAUSES NAUSEA; DILTIAZEM; MORPHINE, WHICH CAUSES NAUSEA; PENICILLIN; STREPTOKINASE; SULFA ANTIBIOTICS; AND SULFANURIAS. PHYSICAL EXAMINATION: VITAL SIGNS: Temp 36.9, pulse 74, respiratory rate 20, blood pressure 98/58, 96% on room air. GENERAL: He is awake, alert, oriented x3, pleasant but generally a bit upset about the discomfort from the NG tube. He is somewhat frail-appearing. HEENT: Normocephalic, atraumatic. Mucous membranes are somewhat dry. The NG tube is in place without any notable breakdown. CARDIOVASCULAR: Regular. No rubs, murmurs, or gallops. LUNGS: Clear to auscultation bilaterally. No rales, rhonchi, or wheezes. Good effort. ABDOMEN: Surprisingly soft, nondistended, nontender. No masses or organomegaly; now of course, this is right after the NG tube has been placed and hooked up to suction. EXTREMITIES: Without cyanosis or clubbing. He has bilateral maybe left slightly greater than right, trace to 1+ edema. The notes that is chronic. SKIN: Shows no rashes, no pallor or icterus. NEUROLOGIC: Shows cranial nerves II-XII to be grossly intact. Gross motor and sensory are intact. MUSCULOSKELETAL: Yields no gross lesions. MENTAL STATUS: Shows difficult to assess actually because of his perseveration with the NG tube, but seems to have good recent and remote recall. LABS AND DIAGNOSTICS: CBC shows a white count of 10.97 with 72.4% neutrophils, hemoglobin 8.9 with an MCV of 73, platelets 616. Complete metabolic panel with sodium 145, potassium 3.9, chloride 107, CO2 30, BUN 23, creatinine 1.1, calcium 8.2, glucose 111. Total bili 0.4 with an AST of 16, ALT 11, alkaline phosphatase 76, troponin of 0.030. Total protein 7.2, albumin 2.7, lipase 47. Chest x-ray shows chronic right apical pleural and parenchymal scarring but no acute disease. CT abdomen and pelvis shows trace amount of perihepatic ascites, several nonobstructing renal calcifications, no evidence of hydronephrosis, chronic extrarenal pelvis on the right, multiple fluid filled somewhat distended loops of small bowel consistent with a distal small bowel obstruction probably partial. Colon is negative for distention. Multiple bladder calculi are noted. ASSESSMENT AND PLAN: 1. Acute partial small bowel obstruction. This is either adhesional or related to the malignancy either way given that he has responded so nicely to supportive care and nasogastric tube placement and it is only a partial obstruction, hopefully this will resolve with conservative management. I have discussed the case with general surgery and they will be following as well, but at this point in time conservative treatment appears to be warranted. Had an extensive discussion with the family on the etiology of this either likely being adhesional or related to the malignancy, but at this point in time as long as the bowel obstruction resolves, no surgery would be warranted. Continue NG tube to low intermittent suction. Continue n.p.o. Continue Zofran for nausea, add Demerol for pain. On review of his "allergies" to pain medications, it appears there were adverse reactions of nausea, so we will try Demerol given that he is a small older frail gentleman. If that causes him nausea, could try an extremely low dose of Dilaudid instead, and serial exams and supportive care, IV fluids. 2. Nausea, vomiting, abdominal pain. This appears to be due to the small bowel obstruction. 3. Metastatic colon cancer. Ongoing outpatient workup, evaluation, and treatment. Unless of course the bowel obstruction does not resolve, will require surgery. 4. Iron deficiency anemia relates to his colon cancer. The family note he was to be getting IV iron and a unit of transfusion in the near future. We will continue the IV iron and follow his hemoglobin. Certainly if it appears clinically warranted, the transfusion will be given; however, his hemoglobin did improve from 7.8 to 8.9, and it is uncertain how much of that hemoconcentration. Once we hydrate him if he still low, certainly in addition to the iron we will give him blood. 5. Thrombocytosis, likely reactive. 6. Type 2 diabetes. Hold his home meds. Follow fingersticks and give supplemental insulin as needed. 7. Hypothyroidism. Holding his home medications. If he is n.p.o. for more than a couple of days, start IV Synthroid. 8. Deep venous thrombosis prophylaxis. Heparin subQ with caution, given that he does have a known active colon cancer; however, of course, with known metastatic malignancy in a patient likely to not be very mobile the risk of developing venous thromboembolic disease certainly outweighs the risk of any bleeding that subQ heparin may bring on. We utilize subQ heparin because of the b.i.d. dosing and the ability to give protamine if he were to surprise us with any bleeding. 9. Hypocalcemia. Check a vitamin D, given its loose correlation with colon cancers. 10. Gastroesophageal reflux disease. We will have his NG tube in, follow certainly, if he is having any symptoms, can treat with IV H2 or IV PPI.
[2016-06-16 07:29] VITALS: BP 108/61; PULSE 57; TEMP 36.9; O2SAT 95
[2016-06-16 07:38] LABS: BUN/CREATININE RATIO 18.8 (10-20); CALCIUM 7.3 mg/dl (8.5-10.1); CREATININE 0.78 mg/dl (0.60-1.40)
[2016-06-16] MEDS: PANTOprazole INJ 40 MG in SYRINGE 0 ML IV SCH (09:13)
[2016-06-16] MEDS: HEPARIN SOD 5000 UNIT/0.5 ML CARP SQ SCH ×2 (09:21→21:27)
[2016-06-16] MEDS: INSULIN ASPART 100 UNITS/ML 3 ML PEN SC SCH ×5 (09:22→21:26)
--- NOTE | 2016-06-16 10:43 | Surgery Progress Note ---
Surgery Progress Note Date of Service June 16, 2016. Subjective + bowel movement, + diet (tolerated clear liquids), + feeling well, + flatus, No nausea, No vomiting Objective Vital Signs: Date Time Temp Pulse Resp B/P Pulse Ox O2 Delivery O2 Flow Rate FiO2 06/16/16 07:30 Room Air 06/16/16 07:29 36.9 57 16 108/61 95 Room Air 06/16/16 06:28 113/63 06/15/16 23:45 Room Air 06/15/16 23:00 37.0 65 16 100/47 96 Room Air 06/15/16 16:00 98 Room Air 06/15/16 15:13 36.5 56 16 106/57 98 Room Air Abdomen: normal bowel sounds, non tender, non distended, soft Laboratory Results: Results Past 24 Hours Test 06/15/16 11:00 06/15/16 11:54 06/15/16 18:13 06/15/16 20:28 Range/Units Hemoglobin 8.1 14.0-18.0 g/dL Hematocrit 26.8 42-52 % Iron Level 43 35-175 mcg/dl Total Iron Binding Capacity 202 250-450 mcg/dl Bedside Glucose 87 66 58 70-99 mg/dl Test 06/15/16 21:00 06/15/16 21:40 06/16/16 00:00 06/16/16 06:23 Range/Units Bedside Glucose 58 79 143 70-99 mg/dl White Blood Count 6.75 4.8-10.8 K/uL Red Blood Count 3.62 4.7-6.1 M/uL Hemoglobin 8.1 14.0-18.0 g/dL Hematocrit 26.7 42-52 % Mean Corpuscular Volume 73.8 80-100 fL Mean Corpuscular Hemoglobin 22.4 25-34 pg Mean Corpuscular Hemoglobin Concent 30.3 32-36 g/dl RDW Standard Deviation 49.8 36.4-46.3 fL RDW Coefficient of Variation 18.9 11.5-14.5 % Platelet Count 510 130-400 K/uL Mean Platelet Volume 10.0 7.4-10.4 fL Sodium Level 141 136-145 mmol/L Potassium Level 4.0 3.5-5.1 mmol/L Chloride Level 107 98-107 mmol/L Carbon Dioxide Level 27 21-32 mmol/L Anion Gap 7.0 3-11 mmol/L Blood Urea Nitrogen 15 7-18 mg/dl Creatinine 0.78 0.60-1.40 mg/dl Est Creatinine Clear Calc Drug Dose 60.9 ml/min Estimated GFR () 98.1 Estimated GFR (Non- 84.7 BUN/Creatinine Ratio 18.8 10-20 Random Glucose 93 70-99 mg/dl Calcium Level 7.3 8.5-10.1 mg/dl Test 06/16/16 08:06 Range/Units Bedside Glucose 91 70-99 mg/dl Assessment & Plan SBO resolved Advance to full liquid diet
[2016-06-16] MEDS ORDERED: ERGOCALCIFEROL 50,000 INTER.UNIT CAP PO SCH (11:00)
[2016-06-16] MEDS ORDERED: LEVOTHYROXINE 50 MCG TAB PO ONE (11:00)
[2016-06-16 15:21] VITALS: BP 104/54; PULSE 55; TEMP 36.3; O2SAT 96
--- NOTE | 2016-06-16 20:28 | Progress Note ---
Subjective Date of Service: June 16, 2016. Subjective Pt evaluation today including: conversation w/ patient, conversation w/ family (grand-children, children), physical exam, chart review, lab review, review of inpatient medication list Pain: joints - hands, knees, ankles, etc PO Intake: tolerating clears Voiding: no voiding problems feels much better today denies abd pain, nausea, emesis +multiple stools and flatus his main complaint is that of significant swelling of multiple joints of hands, knees, etc. +AM stiffness lasting hours cannot make a fist with hands due to swelling/discomfort states he was seen in the past by [facility] and told he had "inflammatory arthritis" took chronic prednisone for quite some time and ultimately it was stopped due to gynecomastia? Problem List Medical Problems: (1) Dehydration Status: Acute (2) Small bowel obstruction Status: Acute (3) Vomiting Status: Acute Review of Systems Constitutional: No chills, No fever Respiratory: No shortness of breath Cardiac: No chest pain Abdomen: No pain Objective Vital Signs Date Time Temp Pulse Resp B/P Pulse Ox O2 Delivery O2 Flow Rate FiO2 06/16/16 16:20 Room Air 06/16/16 15:21 36.3 55 16 104/54 96 Room Air 06/16/16 07:30 Room Air 06/16/16 07:29 36.9 57 16 108/61 95 Room Air 06/16/16 06:28 113/63 06/15/16 23:45 Room Air 06/15/16 23:00 37.0 65 16 100/47 96 Room Air Physical Exam General Appearance: no apparent distress ENT: pharynx normal Neck: no JVD Respiratory/Chest: lungs clear, no respiratory distress, no accessory muscle use Cardiovascular: regular rate, rhythm, no gallop, no murmur Abdomen: normal bowel sounds, non tender, soft, no organomegaly, + distended ( minimal) Extremities: no pedal edema, + pertinent finding (significant synovitis of multiple MCPs, PIPs, knees; OA nodes over the DIP joints both hands as well; no red/hot/inflamed joints ) Neurologic/Psychiatric: alert, oriented x 3 Laboratory Results Last 24 Hours Test 06/15/16 20:28 06/15/16 21:00 06/15/16 21:40 06/16/16 00:00 Bedside Glucose 58 mg/dl 58 mg/dl 79 mg/dl 143 mg/dl Test 06/16/16 06:23 06/16/16 08:06 06/16/16 12:00 06/16/16 17:13 White Blood Count 6.75 K/uL Red Blood Count 3.62 M/uL Hemoglobin 8.1 g/dL Hematocrit 26.7 % Mean Corpuscular Volume 73.8 fL Mean Corpuscular Hemoglobin 22.4 pg Mean Corpuscular Hemoglobin Concent 30.3 g/dl RDW Standard Deviation 49.8 fL RDW Coefficient of Variation 18.9 % Platelet Count 510 K/uL Mean Platelet Volume 10.0 fL Sodium Level 141 mmol/L Potassium Level 4.0 mmol/L Chloride Level 107 mmol/L Carbon Dioxide Level 27 mmol/L Anion Gap 7.0 mmol/L Blood Urea Nitrogen 15 mg/dl Creatinine 0.78 mg/dl Est Creatinine Clear Calc Drug Dose 60.9 ml/min Estimated GFR () 98.1 Estimated GFR (Non- 84.7 BUN/Creatinine Ratio 18.8 Random Glucose 93 mg/dl Calcium Level 7.3 mg/dl Bedside Glucose 91 mg/dl 143 mg/dl 147 mg/dl Assessment and Plan 80yo male: 1. pSBO - resolving. Appreciate gen surg consultation. They have advanced diet to full liquids. If he tolerates such later today then d/c the IVF. 2. 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 Start prednisone 30mg daily. Check a hand x-ray. Get records from [facility]. 3. vitamin D def - ergocalciferol 71215 U twice weekly. 4. stage 4 colon cancer - plan of care for this? 5. T2DM - controlled. Lows should resolve with improved oral intake and the steroids. 6. mild acute kidney injury - resolved. 7. BPH - cont alpha paula. 8. DVT proph - heparin BID. 9. FEN - advancing diet, lytes stable, d/c fluids later tonight. PT, OT consults to ensure appropriate level of care post-discharge multiple family members updated today Continued [facility] stay due to: inadequate po fluid intake, multiple IV medications needed
--- NOTE | 2016-06-16 20:53 | DIAGNOSTIC IMAGING REPORT ---
HAND MIN 3 VIEWS ROUTINE CLINICAL HISTORY: synovitis multiple MCPs and PIPs joints; eval for erosive change pain COMPARISON: 09/11/2011 DISCUSSION: Moderate generalized degenerative change throughout the hand and wrist. Calcification of the cartilaginous components consistent with mild chondrocalcinosis. Soft tissue vascular calcification. There is no evidence for soft tissue swelling. IMPRESSION: Moderate generalized degenerative change. Osteopenia. Electronically signed by: Mike Thornton M.D. 06/16/2016 8:52 PM Dictated Date/Time: 06/16/2016 8:50 PM
[2016-06-16 23:15] VITALS: BP 94/61; PULSE 50; TEMP 36.4; O2SAT 97
[2016-06-17] MEDS: LEVOTHYROXINE 50 MCG TAB PO SCH (05:38)
[2016-06-17 06:34] VITALS: BP 109/61
[2016-06-17 07:04] VITALS: BP 117/53; PULSE 44; TEMP 36.2; O2SAT 95
[2016-06-17 07:34] LABS: HEMATOCRIT 25.8 % (42-52); MEAN CELL VOLUME 73.7 fL (80-100); MEAN CORPUSCULAR HEMOGLOBIN 22.9 pg (25-34); PLATELET COUNT 444 K/uL (130-400); WHITE BLOOD COUNT 6.62 K/uL (4.8-10.8)
--- NOTE | 2016-06-17 08:02 | Surgery Progress Note ---
Surgery Progress Note Date of Service June 17, 2016. Subjective Post OP Day: HD # 3 + bowel movement, + diet (full liquids), + feeling well, + flatus, No complaints , No nausea, No vomiting Objective Vital Signs: Date Time Temp Pulse Resp B/P Pulse Ox O2 Delivery O2 Flow Rate FiO2 06/17/16 07:04 36.2 44 15 117/53 95 Room Air 06/17/16 06:34 109/61 06/16/16 23:35 Room Air 06/16/16 23:15 36.4 50 16 94/61 97 Room Air 06/16/16 16:20 Room Air 06/16/16 15:21 36.3 55 16 104/54 96 Room Air General Appearance: WD/WN, no apparent distress Head: normocephalic, atraumatic Neck: trachea midline Respiratory/Chest: no respiratory distress, no accessory muscle use Abdomen: normal bowel sounds, non tender, non distended, soft, no organomegaly , no pulsatile mass Laboratory Results: Results Past 24 Hours Test 06/16/16 08:06 06/16/16 12:00 06/16/16 17:13 06/16/16 20:26 Range/Units Bedside Glucose 91 143 147 226 70-99 mg/dl Test 06/17/16 07:10 Range/Units White Blood Count 6.62 4.8-10.8 K/uL Red Blood Count 3.50 4.7-6.1 M/uL Hemoglobin 8.0 14.0-18.0 g/dL Hematocrit 25.8 42-52 % Mean Corpuscular Volume 73.7 80-100 fL Mean Corpuscular Hemoglobin 22.9 25-34 pg Mean Corpuscular Hemoglobin Concent 31.0 32-36 g/dl RDW Standard Deviation 49.2 36.4-46.3 fL RDW Coefficient of Variation 19.6 11.5-14.5 % Platelet Count 444 130-400 K/uL Mean Platelet Volume 10.0 7.4-10.4 fL Assessment & Plan SBO-Resolved - + bowel function - tolerating full liquids - abdominal examination : soft, benign, good bowel sounds Plan: Advance diet to regular diet as tolerated Continue current management established by hospitalist service Our services signing off Thank you for the consultation and involving us in the care of this patient. Dr. Bautista has seen and examined patient, agrees with above findings and plan.
[2016-06-17 08:10] LABS: BUN/CREATININE RATIO 15.6 (10-20); CREATININE 0.72 mg/dl (0.60-1.40); MAGNESIUM 1.2 mg/dl (1.8-2.4); POTASSIUM 3.8 mmol/L (3.5-5.1)
[2016-06-17 08:20] LABS: THYROID STIMULATING HORMONE 4.42 uIu/ml (0.300-4.500)
[2016-06-17 08:50] LABS: CALCIUM 7.7 mg/dl (8.5-10.1)
[2016-06-17] MEDS: INSULIN ASPART 100 UNITS/ML 3 ML PEN SC SCH ×4 (08:58→21:33)
[2016-06-17] MEDS: HEPARIN SOD 5000 UNIT/0.5 ML CARP SQ SCH ×2 (09:15→21:33)
[2016-06-17] MEDS: PANTOprazole SOD 40 MG TAB PO SCH (09:16)
[2016-06-17 09:20] VITALS: PULSE 60
[2016-06-17] MEDS: MAGNESIUM SULFATE 1GM / D5W 1 GM in PREMIXED IN D5W 100 ML IV SCH ×3 (10:29→13:00)
[2016-06-17 16:03] VITALS: BP 117/65; PULSE 51; TEMP 36.3; O2SAT 100
--- NOTE | 2016-06-17 18:02 | DIAGNOSTIC IMAGING REPORT ---
ULTRASOUND VENOUS DOPPLER LWR EXT BILA CLINICAL HISTORY: Leg swelling CARCINOMA COMPARISON STUDY: No previous studies for comparison. FINDINGS: Real-time and color flow Doppler imaging were performed. Flow was seen within the femoral, popliteal and calf veins with no intraluminal thrombus demonstrated. The saphenous vein is patent. IMPRESSION: No evidence of lower extremity DVT. Electronically signed by: Oscar Gentile M.D. 06/17/2016 6:01 PM Dictated Date/Time: 06/17/2016 6:00 PM
--- NOTE | 2016-06-17 21:12 | Progress Note ---
Subjective Date of Service: June 17, 2016. Subjective Pt evaluation today including: conversation w/ patient, conversation w/ family , physical exam, chart review, lab review, review of studies (LE dopplers), review of inpatient medication list Pain: no abdominal pain PO Intake: tolerating regular diet Voiding: no voiding problems feels good today joints in hands are better w/ less stiffness reports LE edema - gets this at home periodically; worse with sitting, better supine denies sob/cough he and his family report he was to have a "biopsy" of his lung tomorrow Problem List Medical Problems: (1) Dehydration Status: Acute (2) Small bowel obstruction Status: Acute (3) Vomiting Status: Acute Review of Systems Constitutional: No fever Respiratory: No cough, No dyspnea on exertion, No shortness of breath Cardiac: No chest pain Abdomen: No nausea, No pain, No vomiting Objective Vital Signs Date Time Temp Pulse Resp B/P Pulse Ox O2 Delivery O2 Flow Rate FiO2 06/17/16 16:20 Room Air 06/17/16 16:03 36.3 51 16 117/65 100 Room Air 06/17/16 09:20 60 06/17/16 07:20 Room Air 06/17/16 07:04 36.2 44 15 117/53 95 Room Air 06/17/16 06:34 109/61 06/16/16 23:35 Room Air 06/16/16 23:15 36.4 50 16 94/61 97 Room Air Physical Exam General Appearance: no apparent distress ENT: pharynx normal Neck: no JVD Respiratory/Chest: lungs clear, no respiratory distress, no accessory muscle use Cardiovascular: regular rate, rhythm, no gallop, no murmur Abdomen: normal bowel sounds, non tender, soft, no organomegaly, + distended ( minimal) Extremities: + pedal edema (1-2+ b/l, nonpitting), + pertinent finding ( varicose veins b/l, worse on right) Neurologic/Psychiatric: alert, oriented x 3 Skin: no rash Comments: musculo - b/l hands with synovitis of multiple MCPs and PIPs but overall improved today; handgrip much improved b/l Laboratory Results Last 24 Hours Test 06/17/16 07:10 06/17/16 08:02 06/17/16 11:54 06/17/16 18:20 White Blood Count 6.62 K/uL Red Blood Count 3.50 M/uL Hemoglobin 8.0 g/dL Hematocrit 25.8 % Mean Corpuscular Volume 73.7 fL Mean Corpuscular Hemoglobin 22.9 pg Mean Corpuscular Hemoglobin Concent 31.0 g/dl RDW Standard Deviation 49.2 fL RDW Coefficient of Variation 19.6 % Platelet Count 444 K/uL Mean Platelet Volume 10.0 fL Sodium Level 141 mmol/L Potassium Level 3.8 mmol/L Chloride Level 106 mmol/L Carbon Dioxide Level 29 mmol/L Anion Gap 6.0 mmol/L Blood Urea Nitrogen 11 mg/dl Creatinine 0.72 mg/dl Est Creatinine Clear Calc Drug Dose 66.0 ml/min Estimated GFR () 101.4 Estimated GFR (Non- 87.5 BUN/Creatinine Ratio 15.6 Random Glucose 102 mg/dl Calcium Level 7.7 mg/dl Magnesium Level 1.2 mg/dl Thyroid Stimulating Hormone (TSH) 4.420 uIu/ml Bedside Glucose 104 mg/dl 161 mg/dl 185 mg/dl Test 06/17/16 20:25 Bedside Glucose 197 mg/dl Assessment and Plan 80yo male: 1. pSBO - resolved. Diet advanced to regular and tolerating. Appreciate gen surg consultation. 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 Wean prednisone to 20mg in AM. Hand x-rays with CPPD changes. Get records from [facility] with whom he has seen in the past (apparently took prednisone chronically for this issue in the past). 3. vitamin D def - ergocalciferol 26983 U twice weekly. 4. stage 4 colon cancer - I confirmed with the pulmonary office that he was to have a thoracentesis tomorrow followed by CT of the chest. Will ask Dr. Forte to see in the AM (or thoracic). 5. T2DM - some mild elevations but overall control acceptable and highs should resolve as prednisone is tapered. 6. mild acute kidney injury - resolved. 7. BPH - cont alpha paula. 8. DVT proph - heparin BID. 9. FEN - lytes stable, eating well. 10. b/l LE edema - checked dopplers, DVT ruled out. Likely dependent edema. 11. hypomagnesemia - replace w/ 3 grams mag sulfate; repeat level in AM. Likely due to recent poor oral intake/NPO status. PT, OT consults suggest he is very appropriate for home multiple family members updated today hopefully d/c home, perhaps after thoracentesis Discharge planning: home
[2016-06-17 23:10] VITALS: BP 120/61; PULSE 52; TEMP 36.4; O2SAT 97
[2016-06-18] MEDS: LEVOTHYROXINE 50 MCG TAB PO SCH (05:49)
[2016-06-18 07:26] VITALS: BP 121/71; PULSE 47; TEMP 36.5; O2SAT 97
[2016-06-18] MEDS: INSULIN ASPART 100 UNITS/ML 3 ML PEN SC SCH ×2 (08:00→12:00)
[2016-06-18 08:02] LABS: PROTHROMBIN TIME (PATIENT) 10.5 SECONDS (9.0-12.0)
[2016-06-18] MEDS: PANTOprazole SOD 40 MG TAB PO SCH (09:04)
[2016-06-18] MEDS: HEPARIN SOD 5000 UNIT/0.5 ML CARP SQ SCH (09:14)
[2016-06-18] MEDS ORDERED: FURO-85 PO (13:18)
[2016-06-18] MEDS ORDERED: PRED-301 PO (13:18)
[2016-06-18] MEDS ORDERED: POTA10TA PO (13:18)
[2016-06-18] MEDS ORDERED: VTMD PO (13:18)
[2016-06-18] MEDS ORDERED: GLC/500 PO (13:28)
--- NOTE | 2016-06-18 13:28 | Discharge Instructions ---
Discharge Instructions Date of Service June 18, 2016. Admission Reason for Admission: Small Bowel Obstruction Discharge Discharge Diagnosis / Problem: Small Bowel Obstruction - resolved. Discharge Goals Goal(s): Learn about illness, Diagnostic testing, Therapeutic intervention Activity Recommendations Activity Limitations: resume your previous activity (as tolerated) . Instructions / Follow-Up Instructions / Follow-Up From Dr. Keating - 1. Bowel obstruction / blockage - * fortunately this resolved without any surgery * this could recur again in the future * if you experience severe abdominal pain, vomiting, lack of stool or gas per rectum, etc - please report back to [facility] 2. Fluid in right lung - * Dr. Forte plans to perform the fluid removal procedure in the near future * his office will schedule this procedure for you * if you have not heard anything from Dr. Forte by the end of this week regarding an appointment for this procedure please contact his office 3. vitamin D deficiency - * you have vitamin D deficiency * please take ergocalciferol 37791 capsule TWICE A WEEK for 8 weeks * you will need a repeat lab test for the vitamin D in 2-3 months 4. swelling in legs - * you have no blood clots on the sonogram performed * please take lasix (also known as furosemide) as follows - * take the lasix TODAY, TOMORROW ON THURSDAY, and THURSDAY; you will take 1 tablet on each day only * also take a potassium supplement with the lasix on each of the 3 days * after the 3 days of lasix just use the medication NEEDED for the swelling * if you do use lasix in the future be sure to take the potassium supplement with it 5. arthritis of hands, swollen hands - * please ask Dr. Riojas to refer you back to the [facility] maintenance technician * take prednisone for 10 more days then stop (see bottle for instructions) 6. Diabetes - Please REDUCE your metformin to ONCE daily use only. Take with breakfast only. If your sugars remain low the metformin will need to be stopped completely. Please discuss this with Dr. Riojas if your sugars are low (less than 80 at any time). Other: Please STOP your metoprolol xl as well as the benicar as your blood pressure has been NORMAL without these medications. The metoprolol xl may be able to be resumed as an outpatient depending upon your blood pressure. Dr. Riojas's office can manage this. See Dr. Riojas's office as scheduled in the next week. See the cancer doctors through [employer] TOMORROW as scheduled. Current Hospital Diet Patient's current hospital diet: Diabetes Type 2 Diet Discharge Diet Recommended Diet: Diabetes Type 2 Diet Procedures Procedures Performed: CAT scan of abdomen & Pelvis showing partial bowel obstruction. Dopplers of both legs with NO blood clots. Pending Studies Studies pending at discharge: no Laboratory Results Lipid Panel Test 06/03/16 08:11 Range/Units Triglycerides Level 102 0-150 mg/dl Cholesterol Level 121 0-200 mg/dl HDL Cholesterol 39 mg/dl Cholesterol/HDL Ratio 3.1 LDL Cholesterol, Calculated 62 mg/dl Medical Emergencies . Who to Call and When: Medical Emergencies: If at any time you feel your situation is an emergency, please call 911 immediately. . Non-Emergent Contact Non-Emergency issues call your: Primary Care Provider Call Non-Emergent contact if: temperature is above 100.5, your pain is not controlled, your pain is worsening, your pain is unusual for you, your pain is concerning you, you have any medication questions . . "Provider Documentation" section prepared by Thor Keating. . VTE Core Measure Inpt VTE Proph given/why not?: Unfractionated heparin SQ
[2016-06-18 14:03] VITALS: BP 121/71; PULSE 47; TEMP 36.5; O2SAT 97
--- NOTE | 2016-06-18 14:15 | PULMONARY CONSULTATION ---
DATE OF CONSULTATION: 06/18/2016 DATE OF CONSULTATION: 06/18/2016. TIME: 1:00 p.m. HISTORY OF PRESENT ILLNESS: The patient was seen in room 383 bed 2. He is a pleasant 80-year-old male who has a right pleural effusion. His recent history is that he was found to have a colon carcinoma. His subsequent workup showed by CAT scan, a small right pleural effusion. He had a PET scan done on 06/11/2016. This revealed evidence of a right infrahilar nodule that had increased uptake on PET. He also had a nodular type density in the right apex but that apparently did not show significant uptake. He also has a granuloma in the right lower lobe. The nodule in the right infrahilar region, which is abnormal on PET, measures about 10 mm. The patient was admitted to the hospital this time on 06/14/2016 with symptoms of bowel obstruction. He had been having some abdominal pain and vomiting. He had some nausea. He had an NG tube in for a period of time and subsequently it was removed. He is feeling much better from a GI perspective. He had been tentatively scheduled for an outpatient thoracentesis by Dr. Forte. PAST PULMONARY HISTORY: The only lung problem the patient has had in the past was that of a pneumonia at age 14. He states he was sick for about 2 weeks. He has no history of tuberculosis and he denies any exposure to tuberculosis either with family or friends. PAST SURGICAL HISTORY: 1. Appendectomy. 2. Sinus surgery. 3. Tonsillectomy. 4. Elbow fracture. PAST MEDICAL HISTORY: 1. BPH 2. Hypertension. 3. Diabetes. 4. Hyperlipidemia. 5. Reflux. 6. Hypergammaglobulinemia 7. Hypothyroidism. 8. Anemia. 9. Nephrolithiasis. 10. Vitamin D deficiency. 11. Some type of polyarthritis. FAMILY HISTORY: Mother had Alzheimer disease. Father had bone cancer. Brother had coronary artery disease and [place]. SOCIAL HISTORY: The patient quit smoking in 1990. He had approximately a [id number] history of smoking. ALLERGIES: NUMEROUS ALLERGIES INCLUDING CEPHALOSPORINS, CLARITHROMYCIN, PENICILLIN, SULFA, CODEINE, DILTIAZEM, AND MORPHINE. REVIEW OF SYSTEMS: The patient denies any shortness of breath. He denies cough, sputum production or hemoptysis. He has had no chills, fevers or sweats. The main symptoms have all been GI. The remainder of the review of systems is negative. MEDICATIONS AT HOME: 1. Vitamin B12 100 mcg daily. 2. Ferrous sulfate 325 mg daily. 3. Levothyroxine 50 mcg daily. 4. Metformin 500 mg b.i.d. 5. Metoprolol 25 mg daily. 6. Nitro p.r.n. 7. Benicar 20 mg daily. 8. Omeprazole 20 mg daily. 9. Simethicone as needed. 10. Simvastatin 40 mg daily. 11. Tamsulosin 0.4 mg daily. PHYSICAL EXAMINATION: VITAL SIGNS: The patient is an 80-year-old male who was cooperative, alert and oriented. He was in no distress at rest. The patient's weight is 58 kilograms for a BMI of 21.3. HEAD, EYES, EARS, NOSE, AND THROAT: Eye exam showed evidence of cataract in the left eye and prior cataract surgery on the right. Nares were clear. Mouth exam was negative. NECK: Palpation of the neck reveals no lymph nodes or masses. CHEST: Was of normal expansion and development. HEART: Rate was 48 beats per minute. The rhythm was regular. Blood pressure 121/71. LUNGS: Lung marie revealed mildly decreased breath sounds at the right base. There were a few rales at the bases. Percussion revealed some dullness at the right base. Respiratory rate was 20 breaths per minute and not labored. Saturation was 97% on room air. ABDOMEN: Soft. Bowel sounds were mildly diminished but present. There was no tenderness to palpation. He did not appear distended. EXTREMITIES: Showed +2 edema both lower extremities. There was no cyanosis. He has clearly arthritic changes of his hands. His fingers seemed thickened. I reviewed the patient's recent PET scan. This shows as noted a right upper lobe nodular density which is not showing uptake and a 10 mm right lower lobe nodule which has uptake. He also has a granuloma. He has a small effusion. LABORATORY DATA: White count of 6.62. Hemoglobin is 8. Platelets are 444,000. Urinalysis was unremarkable. Sodium was 141, potassium 3.8, chloride 106, and bicarbonate 29. Magnesium was very low at 1.2. IMPRESSIONS: 1. Right pleural effusion. 2. Right infrahilar nodule. 3. Granulomatous lung disease. COMMENTS AND RECOMMENDATIONS: The patient does need a thoracentesis. Dr. Forte could do it tomorrow. However, the patient is anxious for discharge and he can be discharged. It can simply be rescheduled as an outpatient. I did order a QuantiFERON TB gold study because of his calcified granuloma he has just to be certain he did not have old tuberculosis. If he would receive cancer treatments that might increase his risk for reactivation and it is better that we are aware of that. Thank you for asking me to assist in his care.
--- NOTE | 2016-06-19 10:19 | Discharge Summary ---
Discharge Summary Date of Service June 19, 2016. Discharge Summary Admission Date: June 14, 2016 at 17:00 Discharge Date: June 18, 2016 Discharge Disposition: Home Principal Diagnosis: pSBO Problems/Secondary Diagnoses: 1. 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 colon cancer with concern of pulmonary mets 3. small right-sided pleural effusion 4. vitamin D deficiency 5. hypomagnesemia - resolved 6. acute kidney injury - resolved 7. microcytic anemia 8. CAD with h/o acute VT 9. HTN - now off medication 10. T2DM 11. hyperlipidemia 12. BPH 13. hypothyroidism Immunizations: Have You Had Influenza Vaccine: Yes Influenza Vaccine Date: Nov 03, 2012 History of Tetanus Vaccine?: UTD History of Pneumococcal: Unknown History of Hepatitis B Vaccine: Unknown Procedures: 1. CT abd/pelvis - IMPRESSION: 1. Partial distal small bowel obstruction with multiple fluid-filled slightly distended loops of small bowel. 2. Multiple renal calcifications as well as bladder calculi. 3. No evidence for colonic distention. 4. Trace trace ascites. 5. Right pleural effusion. 6. Mild bibasilar interstitial infiltrative change. 2. b/l lower extremity venous doppler study - negative for DVT. 3. hand x-ray with CPPD changes only; no erosive changes. Consultations: general surgery - Mike Bautista MD pulmonary - Al Sigala, DO PT, OT Medication Reconciliation New Medications: Furosemide (Lasix) 20 Mg Tab 20 MG PO DIRECTED, #30 TAB 0 Refills Potassium Chloride (K-Tabs) 10 Meq Tab 10 MEQ PO DIRECTED, #30 TABS 0 Refills Ergocalciferol (Vitamin D) 50,000 Interunit Cap 47458 INTERUNIT PO MoFr@0900, #8 CAP 1 Refill Prednisone (Prednisone) 5 Mg Tab 5 MG PO DIRECTED, #16 TAB 0 Refills start 06/19/16: take 4 tabs day 1, 3 tabs day 2, 2 tabs day 3, then 1 tab daily for 7 days, then stop. Changed Medications: Metformin Hcl (Glucophage) 500 Mg Tab 500 MG PO qam with breakfast, #30 TAB 0 Refills (Changed from: BID; Refills: ) Continued Medications: Cyanocobalamin (Vitamin B12 100 Mcg) 100 Mcg Tab 100 MCG PO DAILY, TAB Ferrous Sulfate (Iron) 325 Mg Tab 325 MG PO DAILY Levothyroxine Sodium (Levothyroxine Sodium) 25 Mcg Tab 50 MCG PO DAILY, #30 Nitroglycerin (Nitrostat) 0.4 Mg Tab 0.4 MG UT PRN Omeprazole (Prilosec) 20 Mg Cap 1 CAP PO DAILY for 30 Days, #30 CAP 5 Refills Simethicone (Mylanta Gas Minis) 41.667 Mg Chw 311 MG PO DIRECTED Simvastatin (Zocor) 40 Mg Tab 40 MG PO QPM Tamsulosin Hcl (Flomax) 0.4 Mg Cap 0.4 MG PO DAILY, CAP Discontinued Medications: Olmesartan Medoxomil (Benicar) 20 Mg Tab 20 MG PO DAILY Referrals At Discharge Follow up Referrals: [facility]iller Referral - Please Call For Appointment with Irvin Forte MD Discharge Exam Physical Exam: General Appearance: no apparent distress ENT: pharynx normal Neck: no JVD Respiratory/Chest: lungs clear, no respiratory distress, no accessory muscle use, + decreased breath sounds (right base) Cardiovascular: regular rate, rhythm, no gallop, no murmur, normal peripheral pulses Abdomen / GI: normal bowel sounds, non tender, soft, no organomegaly Extremities: + pedal edema (1-2+ b/l ), + pertinent finding (multiple PIPs with synovitis but improved from prior exams) Neurologic/Psychiatric: alert, oriented x 3 Skin: + pallor Hospital Course HISTORY OF PRESENT ILLNESS: 80yo male with history of recently diagnosed colon cancer. The admitting physician obtained much of the history in large part from the ER record and his family as the patient had an NG tube placed and refused to give much information because he was upset about the NG tube. Briefly, he presented with complaints of intermittent abdominal pain and nausea over the last month followed by severe vomiting starting about 24 hours prior to ER presentation. He had inability to eat or keep anything down. His abdominal pain was also worse when he tried to eat. In the ER a CT abd/pelvis demonstrated a partial SBO. HOSPITAL COURSE: 1. pSBO - resolved with conservative measures. Was followed by general surgery during his stay. His diet was ultimately advanced to regular and tolerated such prior to discharge. Certainly his pSBO could have been due to adhesions but the other concern would be that of his colon cancer playing a role. 2. polyarticular arthritis, mainly of his hands - records were obtained from [facility] who had treated his inflammatory arthropathy 5-6 years ago. 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 Records also indicate he was treated with steroids for well over a year and ultimately methotrexate was recommended but the patient declined. He was started on low-dose prednisone while here and had improvement in his hand symptoms. Incidentally his hand x-rays here showed CPPD changes but I am unclear if CPPD is playing a role in his symptoms. He will d/c home on prednisone and outpatient follow-up with [facility] was advised. 3. vitamin D deficiency - level was <10. Ergocalciferol 13386 U twice weekly x 8 weeks was recommended. 4. concern of stage 4 colon cancer - an outpatient right-sided thoracentesis to exclude malignant pleural effusion is being arranged by Dr. Jani Forte from the [facility] office. He has scheduled follow-up with Dr. José Miguel Tolbert, [facility] oncology, shortly after discharge. Of note - a quantiferon gold test was sent and is pending at discharge. 5. T2DM - his metformin dose was reduced to 500mg once daily (from BID) due to recent weight loss and recent hypoglycemia. 6. mild acute kidney injury - resolved with IV hydration. 7. hypomagnesemia - replaced and normal prior to discharge. 8. LE edema - dopplers were negative for DVT. This could be related to his RS3PE. He was given lasix to use on an as needed basis for this. 9. HTN - his BPs were normal his entire stay OFF his ARB. The latter was discontinued at discharge. 10. microcytic anemia - discharge hemoglobin was 8.8. He will continue iron supplementation after discharge. Seen by PT/OT and both services cleared him for home with his spouse. Total Time Spent: Greater than 30 minutes This includes examination of the patient, discharge planning, medication reconciliation, and communication with other providers. Discharge Instructions Please refer to the electronic Patient Visit Report (Discharge Instructions) for additional information. Follow-Up Dr. Riojas's office with Lia Augustin PA-C on ThursdayJune 24 at 11:30 am. Additional Copies To José Miguel Tolbert MD; Sonido Riojas M.D.; Irvin Forte MD; Lia Augustin P.Karla.
[2016-06-20 16:54] LABS: QUANTIF TB AG-NIL <0.00 IU/ML; QUANTIFERON NIL 0.04 IU/ML
[2016-09-28] MEDS ORDERED: [UNRECOGNIZED DRUG - OTHER] PO (14:12)
[2016-09-28] MEDS ORDERED: Enteral Nutrition Formula PO (14:12)
[2016-09-28] MEDS ORDERED: MGNO400 PO (14:12)
[2016-09-28] MEDS ORDERED: SYN25 PO (14:12)
[2016-12-01] MEDS ORDERED: RXC5 PO (21:30)
[2016-12-01] MEDS ORDERED: FRRS300 PO (21:30)
[2016-12-01] MEDS ORDERED: ASPI325T60 PO (21:30)
== END 2016-06-18 14:45 | disposition home or self-care (01) | DRG 389 ==
LOC: ENRESERVDT → ENRESERVTM → C.EDB 13:54 → C.MSN 17:00
PROVIDERS: ADMIT Family Medicine; ATTEND Internal Medicine
DX: K56.60 Unspecified intestinal obstruction (principal); C18.7 Malignant neoplasm of sigmoid colon; E86.0 Dehydration; I25.10 Atherosclerotic heart disease of native coronary artery without angina pectoris; E78.00 Pure hypercholesterolemia, unspecified; I10 Essential (primary) hypertension; I25.2 Old myocardial infarction; N40.0 Benign prostatic hyperplasia without lower urinary tract symptoms; K21.9 Gastro-esophageal reflux disease without esophagitis; E78.5 Hyperlipidemia, unspecified; E55.9 Vitamin D deficiency, unspecified; E53.8 Deficiency of other specified B group vitamins; E11.9 Type 2 diabetes mellitus without complications; E83.51 Hypocalcemia; M06.00 Rheumatoid arthritis without rheumatoid factor, unspecified site; Z87.891 Personal history of nicotine dependence; Z88.2 Allergy status to sulfonamides; Z88.0 Allergy status to penicillin; D50.0 Iron deficiency anemia secondary to blood loss (chronic); R91.1 Solitary pulmonary nodule; R91.8 Other nonspecific abnormal finding of lung field; J90 Pleural effusion, not elsewhere classified

== ENCOUNTER 2016-06-23 12:27 | Day surgery (SDC) | payer OTHER ==
[~2016-06-23] VITALS: Ht 165.1 cm; Wt 55.8 kg
[~2016-06-23 12:27] MED LIST changes: -ASPCH81 PO; -BNC20 PO; +FURO-85 PO; -METO25TA3 PO; +POTA10TA PO; +PRED-301 PO; +VTMD PO
[2016-06-23 12:44] VITALS: BP 118/59; PULSE 81; TEMP 37.2; O2SAT 98; Ht 165.1 cm; Wt 55.8 kg
--- NOTE | 2016-06-23 13:29 | History & Physical Bridge Note ---
H&P Re-Evaluation Bridge Note: I have examined the patient, reviewed the History & Physical and in the interval since the performance of the History & Physical I have noted the following changes of clinical significance: No changes noted
[2016-06-23 14:20] VITALS: BP 116/60; O2SAT 98
--- NOTE | 2016-06-23 14:43 | Procedure Note ---
Procedure Note Date of Service June 23, 2016. Procedure Note Procedure: Right Sided Thoracentesis Consent: obtained via the patient and placed into the chart Pre-Procedural Dx: Right sided pleural effusion Post-Procedural Dx: Right side pleural effusion Analgesia: 6cc of 1% liquid Lidocaine Procedure: Patient was in the up right position and the sight was marked using thoracic US guidance. A spot at the eight intercostal space along the posterior axillary line was marked. The patient was then draped and prepped in a sterile fashion. A modified Seldinger technique was used for catheter insertion. Approximally 1300cc of free flowing yellow fluid was removed. The procedure was d/c after the fluid stopped flowing. The patient's right matty-thorax then underwent thoracic US evaluation with good lung sliding and starry night signs noted. Complications: none Follow-up: [facility]
--- NOTE | 2016-06-23 14:55 | DIAGNOSTIC IMAGING REPORT ---
CT OF THE CHEST WITHOUT IV CONTRAST CLINICAL HISTORY: Pleural effusion. History of thoracentesis. COLORECTAL CARCINOMA. COMPARISON STUDY: PET/CT scan dated 06/11/2016 CT DOSE: 399.12 mGy.cm TECHNIQUE: CT of the thorax was performed from the thoracic inlet to the lung bases. Images are reviewed in the axial, sagittal, and coronal planes. IV contrast was not administered for this examination. FINDINGS: Thyroid: There is a stable 8 mm lower pole right lobe thyroid nodule. Thoracic aorta: The thoracic aorta is normal in course and caliber, noting standard 3 vessel arch anatomy. Heart: There are coronary artery calcifications present. Lungs and pleural spaces: There is a small left pleural effusion. There is a trace right pleural effusion. There is a tiny loculated inferomedial pneumothorax, status post thoracentesis. There is a 12 mm right infrahilar pulmonary nodule unchanged the prior study. There is stable biapical pleural-parenchymal scarring. There is no focal pulmonary consolidation. There is interstitial thickening with a basilar predominance. There is a stable 9 mm right lower lobe pulmonary nodule. There are myriad of tiny 1 to 2 mm pulmonary nodules. Mediastinum: There are multiple calcified and noncalcified mediastinal lymph nodes Yara: There are multiple calcified hilar lymph nodes Axilla: Clear. Upper abdomen: There are multiple left renal calculi. Skeletal structures: There are no lytic or blastic osseous lesions. IMPRESSION: 1. Calcified mediastinal and hilar lymph nodes 2. Stable biapical pleural and parenchymal scarring 3. Trace loculated right-sided pneumothorax status post thoracentesis 4. Small left pleural effusion 5. Multiple tiny 1 to 2 mm scattered pulmonary nodules 6. Stable 12 mm and 9 mm right lower lobe pulmonary nodules. It should be noted to 12 mm pulmonary nodule was FDG avid on the most recent PET CT scan. 7. Left-sided nephrolithiasis Electronically signed by: Oscar Gentile M.D. 06/23/2016 2:54 PM Dictated Date/Time: 06/23/2016 2:44 PM
--- NOTE | 2016-06-23 14:56 | Discharge Instructions ---
Discharge Instructions Date of Service June 23, 2016. Admission Reason for Admission: Pleural Effusion *W/Ct Scan Also Discharge Discharge Diagnosis / Problem: Right sided thoracentesis Discharge Goals Goal(s): Improve function, Diagnostic testing Activity Recommendations Activity Limitations: resume your previous activity . Instructions / Follow-Up Instructions / Follow-Up Follow-Up at the [facility] Current Hospital Diet Patient's current hospital diet: Discharge Diet Recommended Diet: Regular Diet Procedures Procedures Performed: Right sided ultra-sound guided thoracentesis Pending Studies Studies pending at discharge: no Laboratory Results Lipid Panel Test 06/03/16 08:11 Range/Units Triglycerides Level 102 0-150 mg/dl Cholesterol Level 121 0-200 mg/dl HDL Cholesterol 39 mg/dl Cholesterol/HDL Ratio 3.1 LDL Cholesterol, Calculated 62 mg/dl Medical Emergencies . Who to Call and When: Medical Emergencies: If at any time you feel your situation is an emergency, please call 911 immediately. . Non-Emergent Contact Non-Emergency issues call your: Supervisor Money Room Call Non-Emergent contact if: temperature is above 101.5 . . "Provider Documentation" section prepared by Irvin Forte. . VTE Core Measure Inpt VTE Proph given/why not?: Treatment not indicated
--- NOTE | 2016-06-23 15:00 | History and Physical ---
History & Physical Date June 23, 2016. Chief Complaint Right sided pleural effusion History of Present Illness The patient is a 80 year old male with complaints of right sided pleural effusion 80-yo male presents for new patient evaluation for abnormal CT with pleural effusion and pulmonary nodules. Prior records were reviewed. PMHx includes: colon cancer, BPH, DM II, GERD, HTN, hypergammaglobulinemia, hypothyroid, Fe- deficiency anemia, CAD s/p OR, Vitamin D-deficiency and nephrolithiasis. He is a former smoker smoking 25-37 pack year, quit 04/1990. Patient denies any history of childhood asthma or allergies. He reports remote h /o pneumonia age 14yo treated at home. He denies any history of chronic cough, dyspnea, PE or DVT. He states he is able to complete steps and ambulate with ADLS without respiratoyr limitation. He denies any symptom sof nocturnal dyspnea /cough/snoring. 05/22/16 patient underwent colonoscopy for h/o anemia. This was notable for mass of the sigmoid colon with tissue consistent with invasive colonic adenocarcinoma. F/U lead to CT of the chest 05/23/16 which described 12mm RLL granuloma. Biapical scarring. Pleural-based mass right lung apex with spiculated borders measuring 20mm, 10mm spiculated nodule of the right lower lobe and moderate right pleural effusion. PET/CT 06/11/16 notable for increased activity of the right infrahilar nodule and persistent right effusion. 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 He denies prior service in the . He is a life-long [place] resident. He lives withhis in their home which was built in the 1950s. No testing for radon. No mold/mildew. Ho pets. Heat: coal. No travel. No ETOH. No famiily h/o lung disease. He denies any h/.o dysphagia. He uses Prilosec with excellent control of GERD. Past Medical/Surgical History Medical Problems: (1) Coronary artery disease (2) Hypercholesteremia (3) Hypertension (4) Kidney stones (5) Myocardial infarct (6) Pleural effusion (7) Vertigo Additional History Hepatic Disease: No Endocrine Disorder: No Kidney Disease: No Hypertension: Yes Heart Disease: No Bleeding Tendencies: No Infectious Diseases: No Other: colonic ca Allergies Coded Allergies: Clarithromycin (Verified Allergy, Severe, "MAJOR RXN" ?, 06/12/16) Penicillins (Verified Allergy, Severe, "MAJOR RXN" ?, 06/12/16) Sulfa Antibiotics (Verified Allergy, Severe, "SULFA DRUGS": "MAJOR RXN"?, 06/12/16) Cephalosporins (Verified Allergy, Unknown, ?, 06/12/16) Diltiazem (Verified Allergy, Unknown, FLUSHING, 06/12/16) Morphine (Verified Allergy, Unknown, N/V, 06/12/16) Streptokinase (Verified Allergy, Unknown, ?, 06/12/16) Sulfonylureas (Verified Allergy, Unknown, RASH, 06/12/16) Codeine (Verified Adverse Reaction, Mild, NAUSEA / VOMITING, 06/12/16) Home Medications Scheduled Cyanocobalamin (Vitamin B12 100 Mcg), 100 MCG PO DAILY Ergocalciferol (Vitamin D), 50,000 INTERUNIT PO MoFr@0900 Ferrous Sulfate (Iron), 325 MG PO DAILY Furosemide (Lasix), 20 MG PO DIRECTED Levothyroxine Sodium (Levothyroxine Sodium), 50 MCG PO DAILY Metformin Hcl (Glucophage), 500 MG PO qam with breakfast Nitroglycerin (Nitrostat), 0.4 MG UT PRN Omeprazole (Prilosec), 1 CAP PO DAILY Potassium Chloride (K-Tabs), 10 MEQ PO DIRECTED Prednisone (Prednisone), 5 MG PO DIRECTED Simethicone (Mylanta Gas Minis), 311 MG PO DIRECTED Simvastatin (Zocor), 40 MG PO QPM Tamsulosin Hcl (Flomax), 0.4 MG PO DAILY Physical Examination Skin: warm/dry, no rash Eyes: normal inspection, EOMI, sclerae normal ENT: normal ENT inspection, pharynx normal Head: normocephalic, atraumatic Neck: supple, no adenopathy, trachea midline Respiratory/Chest: + pertinent finding (posteroir right lower lobe dullness to percution ) Cardiovascular: regular rate, rhythm, no edema, no murmur Abdomen / GI: normal bowel sounds, non tender Back: normal inspection Extremities: normal inspection, normal range of motion Neurologic/Psych: no motor/sensory deficits, alert, normal reflexes, oriented x 3 Diagnosis Right sided pleural effusion ASA Classification: ASA Class II Plan of Treatment Right sided thoracentesis
[2016-06-23 15:53] LABS: PLEURAL FLUID TOTAL PROTEIN 3.8 g/dl
[2016-06-23 16:01] LABS: PLEURAL FLUID APPEARANCE CLEAR; PLEURAL FLUID COLOR YELLOW; PLEURAL FLUID MONONUC RELAT 66.5 %; PLEURAL FLUID POLYNUC 33.5 %; PLEURAL FLUID SOURCE OTHER PLEURAL FLUID RIGHT SIDE; PLEURAL FLUID WBC (A) 193 /uL
[2016-06-24] MEDS ORDERED: POTA10CA28 PO (20:53)
[2016-06-24] MEDS ORDERED: FURO-85 PO (20:53)
[2016-06-24] MEDS ORDERED: ERGO500037 PO (20:53)
[2016-09-28] MEDS ORDERED: MGNO400 PO (14:12)
[2016-09-28] MEDS ORDERED: [UNRECOGNIZED DRUG - OTHER] PO (14:12)
[2016-09-28] MEDS ORDERED: SYN25 PO (14:12)
[2016-09-28] MEDS ORDERED: Enteral Nutrition Formula PO (14:12)
[2016-12-01] MEDS ORDERED: FRRS300 PO (21:30)
[2016-12-01] MEDS ORDERED: ASPI325T60 PO (21:30)
[2016-12-01] MEDS ORDERED: RXC5 PO (21:30)
== END 2016-06-23 15:19 | disposition home or self-care (01) ==
LOC: C.ACU 12:27
PROVIDERS: ATTEND Internal Medicine Critical Care Medicine
DX: J90 Pleural effusion, not elsewhere classified (principal); N40.0 Benign prostatic hyperplasia without lower urinary tract symptoms; K21.9 Gastro-esophageal reflux disease without esophagitis; I10 Essential (primary) hypertension; D89.2 Hypergammaglobulinemia, unspecified; E03.9 Hypothyroidism, unspecified; E78.00 Pure hypercholesterolemia, unspecified; I25.10 Atherosclerotic heart disease of native coronary artery without angina pectoris; E11.9 Type 2 diabetes mellitus without complications; D50.9 Iron deficiency anemia, unspecified; I25.2 Old myocardial infarction; Z87.891 Personal history of nicotine dependence; Z85.038 Personal history of other malignant neoplasm of large intestine

== ENCOUNTER 2016-06-24 20:23 | Emergency (ER) | payer OTHER ==
[~2016-06-24] VITALS: Ht 165.1 cm; Wt 55.0 kg
[2016-06-24 20:35] VITALS: Ht 165.1 cm; Wt 55.0 kg
[2016-06-24] MEDS ORDERED: FURO-85 PO (20:53)
[2016-06-24] MEDS ORDERED: POTA10CA28 PO (20:53)
[2016-06-24] MEDS ORDERED: ERGO500037 PO (20:53)
[2016-06-24 21:26] VITALS: O2SAT 97
[2016-06-24 21:31] LABS: EOS % 0.2 %; HEMATOCRIT 25.9 % (42-52); IG% 0.2 %; LYMPH % 24.5 %; LYMPH ABS # 1.46 K/uL (1.2-3.4); MEAN CELL VOLUME 75.3 fL (80-100); MEAN CORPUSCULAR HEMOGLOBIN 22.7 pg (25-34); MEAN CORPUSCULAR HGB CONC 30.1 g/dl (32-36); MEAN PLATELET VOLUME 9.1 fL (7.4-10.4); MONO % 7.9 %; NEUT % 67.2 %; PLATELET COUNT 357 K/uL (130-400); RED BLOOD COUNT 3.44 M/uL (4.7-6.1); WHITE BLOOD COUNT 5.97 K/uL (4.8-10.8)
--- NOTE | 2016-06-24 21:32 | DIAGNOSTIC IMAGING REPORT ---
CHEST ONE VIEW PORTABLE CLINICAL HISTORY: Atypical chest pain. Tachycardia. COMPARISON STUDY: 06/14/2016 FINDINGS: The cardiac and mediastinal contours remain stable. There is no lobar consolidation. There is stable reticulonodular thickening no pleural effusions are visualized. There is no overt failure...[ IMPRESSION: Stable reticulonodular interstitial thickening. No acute findings. Electronically signed by: sOcar Gentile M.D. 06/24/2016 9:30 PM Dictated Date/Time: 06/24/2016 9:28 PM
[2016-06-24 21:52] LABS: ALT/SGPT 13 U/L (12-78); BLOOD UREA NITROGEN 19 mg/dl (7-18); BUN/CREATININE RATIO 16.8 (10-20); CARBON DIOXIDE 30 mmol/L (21-32); CHLORIDE 103 mmol/L (98-107); GLUCOSE 130 mg/dl (70-99); POTASSIUM 4.5 mmol/L (3.5-5.1); SODIUM 139 mmol/L (136-145)
[2016-06-24 21:57] LABS: ALKALINE PHOSPHATASE 65 U/L (45-117); AST/SGOT 14 U/L (15-37); CKMB/CK RATIO 4.6 (0-3.0)
[2016-06-24 22:03] LABS: CALCIUM 8.5 mg/dl (8.5-10.1)
[2016-06-24 22:23] VITALS: BP 105/58; PULSE 68; TEMP 36.7; O2SAT 98
--- NOTE | 2016-06-24 22:25 | EMERGENCY ROOM VISIT NOTE ---
History Report prepared by Vance: Evan Mireles Under the Supervision of: Dr. Álvaro Graham M.D. First contact with patient: 20:54 Chief Complaint: REFERRED BY DOCTOR Stated Complaint: RAPID HEARTBEAT,BLURRED VISION History of Present Illness The patient is a 80 year old male who presents to the Emergency Room with complaints of an episode of blurred vision occurring 9 hours ago. He states that he was walking when his symptoms occurred. He states that the episode lasted for approximately five minutes. The patient states that his son took his pulse and found his heart rate to be high. He denies any chest pain, or SOB. He has a history of colon cancer. The patient notes that he had a thoracentesis yesterday to drain an effusion off of his lungs. He notes that he was referred to the ED by his director water and waste services. Source of History: patient Onset: 9 hours ago Symptom Intensity: 5 minutes Quality: other (blurred vision) Timing: other (episode) Associated Symptoms: No SOB, No chest pain Note: The patient also complains of a high heart rate during the episode. Review of Systems See HPI for pertinent positives & negatives. A total of 10 systems reviewed and were otherwise negative. Past Medical & Surgical Medical Problems: (1) Coronary artery disease (2) Hypercholesteremia (3) Hypertension (4) Kidney stones (5) Myocardial infarct (6) Pleural effusion (7) Vertigo Family History FHx: heart disease FHx: kidney disease/stones Social History Smoking Status: Former Smoker Alcohol Use: none Drug Use: none Marital Status: Housing Status: lives with significant other Occupation Status: retired Current/Historical Medications Scheduled Ergocalciferol (Vitamin D 73308 Unit), 50,000 UNIT PO 2XWK Ferrous Sulfate (Iron), 325 MG PO DAILY Furosemide (Lasix), 20 MG PO DAILY Levothyroxine Sodium (Levothyroxine Sodium), 50 MCG PO DAILY Metformin Hcl (Glucophage), 500 MG PO qam with breakfast Nitroglycerin (Nitrostat), 0.4 MG UT PRN Omeprazole (Prilosec), 1 CAP PO DAILY Potassium Chloride (Micro-K Ext Rel), 10 MEQ PO DAILY Prednisone (Prednisone), 5 MG PO DIRECTED Simethicone (Mylanta Gas Minis), 311 MG PO DIRECTED Simvastatin (Zocor), 40 MG PO QPM Tamsulosin Hcl (Flomax), 0.4 MG PO DAILY Allergies Coded Allergies: Clarithromycin (Verified Allergy, Severe, "MAJOR RXN" ?, 06/12/16) Penicillins (Verified Allergy, Severe, "MAJOR RXN" ?, 06/12/16) Sulfa Antibiotics (Verified Allergy, Severe, "SULFA DRUGS": "MAJOR RXN"?, 06/12/16) Cephalosporins (Verified Allergy, Unknown, ?, 06/12/16) Diltiazem (Verified Allergy, Unknown, FLUSHING, 06/12/16) Morphine (Verified Allergy, Unknown, N/V, 06/12/16) Streptokinase (Verified Allergy, Unknown, ?, 06/12/16) Sulfonylureas (Verified Allergy, Unknown, RASH, 06/12/16) Codeine (Verified Adverse Reaction, Mild, NAUSEA / VOMITING, 06/12/16) Physical Exam Vital Signs Date Time Temp Pulse Resp B/P Pulse Ox O2 Delivery O2 Flow Rate FiO2 06/24/16 22:23 36.7 68 14 105/58 98 06/24/16 22:08 68 14 06/24/16 22:03 63 18 97 06/24/16 21:58 64 12 98 06/24/16 21:56 104/54 06/24/16 21:53 61 12 97 06/24/16 21:48 63 21 96 06/24/16 21:43 62 21 97 06/24/16 21:38 65 17 96 06/24/16 21:33 63 19 96 06/24/16 21:28 64 20 96 06/24/16 21:26 97 Room Air 06/24/16 21:23 66 19 93 06/24/16 21:18 64 14 93/56 99 06/24/16 21:13 67 20 06/24/16 21:09 87 06/24/16 21:08 111 21 06/24/16 20:35 36.7 69 18 104/56 96 Room Air Physical Exam GENERAL: Patient is pale and cachectic-appearing well-nourished HEAD: Normocephalic atraumatic EYES: Ocular movements intact pupils equal and react to light OROPHARYNX mucous membranes are moist no exudates present no erythema or edema present NECK: Supple no nuchal rigidity CHEST: Good equal expansion LUNGS: Clear and equal to auscultation CARDIAC: Normal S1 and S2 ABDOMEN: Soft nontender no guarding BACK: No CVA tenderness EXTREMITIES: No pain upon palpation normal muscle strength in all groups no clubbing cyanosis or edema NEURO: Patient is following commands is answering questions appropriately. Alert and oriented x3 Cranial Nerves 2-12 grossly intact Medical Decision & Procedures ER Provider Diagnostic Interpretation: X-ray results as stated below per interpretation by me and the radiologist: CHEST ONE VIEW PORTABLE FINDINGS: The cardiac and mediastinal contours remain stable. There is no lobar consolidation. There is stable reticulonodular thickening no pleural effusions are visualized. There is no overt failure...[ IMPRESSION: Stable reticulonodular interstitial thickening. No acute findings. Electronically signed by: Oscar Gentile M.D. Laboratory Results 06/24/16 21:18 Red Blood Count 3.44, Mean Corpuscular Volume 75.3, Mean Corpuscular Hemoglobin 22.7, Mean Corpuscular Hemoglobin Concent 30.1, Mean Platelet Volume 9.1, Neutrophils (%) (Auto) 67.2, Lymphocytes (%) (Auto) 24.5, Monocytes (%) (Auto) 7.9, Eosinophils (%) (Auto) 0.2, Basophils (%) (Auto) 0.0, Neutrophils # (Auto) 4.02, Lymphocytes # (Auto) 1.46, Monocytes # (Auto) 0.47, Eosinophils # (Auto) 0.01, Basophils # (Auto) 0.00 06/24/16 21:18 Test 06/24/16 21:18 White Blood Count 5.97 K/uL (4.8-10.8) Red Blood Count 3.44 M/uL (4.7-6.1) Hemoglobin 7.8 g/dL (14.0-18.0) Hematocrit 25.9 % (42-52) Mean Corpuscular Volume 75.3 fL (80-100) Mean Corpuscular Hemoglobin 22.7 pg (25-34) Mean Corpuscular Hemoglobin Concent 30.1 g/dl (32-36) Platelet Count 357 K/uL (130-400) Mean Platelet Volume 9.1 fL (7.4-10.4) Neutrophils (%) (Auto) 67.2 % Lymphocytes (%) (Auto) 24.5 % Monocytes (%) (Auto) 7.9 % Eosinophils (%) (Auto) 0.2 % Basophils (%) (Auto) 0.0 % Neutrophils # (Auto) 4.02 K/uL (1.4-6.5) Lymphocytes # (Auto) 1.46 K/uL (1.2-3.4) Monocytes # (Auto) 0.47 K/uL (0.11-0.59) Eosinophils # (Auto) 0.01 K/uL (0-0.5) Basophils # (Auto) 0.00 K/uL (0-0.2) RDW Standard Deviation 58.9 fL (36.4-46.3) RDW Coefficient of Variation 22.2 % (11.5-14.5) Immature Granulocyte % (Auto) 0.2 % Immature Granulocyte # (Auto) 0.01 K/uL (0.00-0.02) Anion Gap 6.0 mmol/L (3-11) Est Creatinine Clear Calc Drug Dose 41.0 ml/min Estimated GFR () 72.6 Estimated GFR (Non- 62.6 BUN/Creatinine Ratio 16.8 (10-20) Calcium Level 8.5 mg/dl (8.5-10.1) Total Bilirubin 0.3 mg/dl (0.2-1) Direct Bilirubin < 0.1 mg/dl (0-0.2) Aspartate Amino Transf (AST/SGOT) 14 U/L (15-37) Alanine Aminotransferase (ALT/SGPT) 13 U/L (12-78) Alkaline Phosphatase 65 U/L (45-117) Total Creatine Kinase 37 U/L (39-308) Creatine Kinase MB 1.7 ng/ml (0.5-3.6) Creatine Kinase MB Ratio 4.6 (0-3.0) Troponin I 0.036 ng/ml (0-0.045) Total Protein 6.2 gm/dl (6.4-8.2) Albumin 2.6 gm/dl (3.4-5.0) Lipase 106 U/L (73-393) Labs reviewed by ED physician. ECG Indication: other (blurred vision) Rate (beats per minute): 89 Rhythm: sinus rhythm (with ventricular paced rhythm) Findings: no acute ischemic change, no ectopy ED Course 2100: Past medical records reviewed. The patient was evaluated in room B6. A complete history and physical examination was performed. 2144: Upon reexamination the patient is resting comfortably. I discussed results and treatment plan with the patient. I recommended hospitalization. He verbalizes agreement and understanding. He will receive two units of red blood cells. The patient will be discharged home. 2220: The patient is refusing the blood transfusion. The patient was discharged home. Medical Decision Differential diagnosis: Etiologies such as metabolic, infection, hypo/hyperglycemia, electrolyte abnormalities, cardiac sources, intracerebral event, toxicologic, neurologic, as well as others were entertained. This is an 80-year-old male who presents emergency department complaining of a period of tachycardia as well as blurry vision that occurred approximately 8 hours ago today. The patient is concerned that is beta paula was stopped and is requesting to restart it however his hemoglobin is only 7.8. Based on this finding I strongly recommended to the patient that he be admitted to the hospital however he is adamantly refusing. I also cautioned him on restarting is beta paula when his blood cell count is low. The patient asked if he could get receive the blood in the [facility] tomorrow so I did discuss the case with the hospitalist to get this arranged along with case management. Patient is going to follow-up with his primary care physician. I also discussed the patient's CAT scan that had happened yesterday with Dr. Forte. Impression Primary Impression: Anemia Scribe Attestation The scribe's documentation has been prepared under my direction and personally reviewed by me in its entirety. I confirm that the note above accurately reflects all work, treatment, procedures, and medical decision making performed by me. Departure Information Dispostion Home / Self-Care Referrals Sonido Riojas M.D. (PCP) Forms HOME CARE DOCUMENTATION FORM, IMPORTANT VISIT INFORMATION, WORK / SCHOOL INSTRUCTIONS Patient Instructions ED Anemia Type Not Specified, My [facility] Additional Instructions Follow up with [facility]'s office You have been examined and treated today on an emergency basis only. This is not a substitute for, or an effort to provide, complete comprehensive medical care. It is impossible to recognize and treat all injuries or illnesses in a single emergency department visit. It is therefore important that you follow up closely with [facility]. Call as soon as possible for an appointment. Thank you for your time and consideration. I look forward to speaking with you again soon. Please don't hesitate to call us if you have any questions. Problem Qualifiers Primary Impression: Anemia Anemia type: unspecified type Qualified Codes: D64.9 - Anemia, unspecified
[2016-06-24 23:22] LABS: ANISOCYTOSIS PRESENT; COMPLETE YES; OVALOCYTES 2+; SCHISTOCYTES OCCASIONAL
[2016-09-28] MEDS ORDERED: SYN25 PO (14:12)
[2016-09-28] MEDS ORDERED: Enteral Nutrition Formula PO (14:12)
[2016-09-28] MEDS ORDERED: [UNRECOGNIZED DRUG - OTHER] PO (14:12)
[2016-09-28] MEDS ORDERED: MGNO400 PO (14:12)
[2016-12-01] MEDS ORDERED: RXC5 PO (21:30)
[2016-12-01] MEDS ORDERED: ASPI325T60 PO (21:30)
[2016-12-01] MEDS ORDERED: FRRS300 PO (21:30)
== END 2016-06-24 22:24 | disposition home or self-care (01) ==
LOC: C.EDB 20:25
DX: D64.9 Anemia, unspecified (principal); R00.0 Tachycardia, unspecified; Z85.038 Personal history of other malignant neoplasm of large intestine; I25.10 Atherosclerotic heart disease of native coronary artery without angina pectoris; E78.00 Pure hypercholesterolemia, unspecified; I10 Essential (primary) hypertension; Z87.442 Personal history of urinary calculi; I25.2 Old myocardial infarction; Z84.1 Family history of disorders of kidney and ureter; Z79.899 Other long term (current) drug therapy

== ENCOUNTER → 2016-06-27 | Outpatient (CLI) | payer OTHER ==
[~2016-06-27] MED LIST changes: +ASPI325T60 PO; +ASPI81TA28 PO; +CAPE150T PO; -CYAN100T6 PO; +ERGO500037 PO; +Enteral Nutrition Formula PO; +FRRS300 PO; +LEVO50TA6 PO; +LOSA50TA6 PO; +MAGN400T6 PO; +MGNO400 PO; +NUTR-7 PO; +ONDA8TAB6 PO; +POTA10CA28 PO; -POTA10TA PO; +PRLSR20 PO; +RXC5 PO; +SYN25 PO; +SYN75 PO; -VTMD PO; +XLD/500 PO; +[UNRECOGNIZED DRUG - CODE] PO; +[UNRECOGNIZED DRUG - OTHER] PO
--- NOTE | 2016-06-27 09:57 | DIAGNOSTIC IMAGING REPORT ---
SMALL BOWEL STUDY CLINICAL HISTORY: SMALL BOWEL OBSTRUCTIONabnormal CT exam COMPARISON STUDY: CT study dated 06/14/2016 FLUOROSCOPY TIME: 0.9 minutes. FINDINGS: ] Pattern transit time within the small bowel are unremarkable. There is a mild intermittent spasm of the distal small bowel but no persistent mucosal abnormalities appreciated. There are no obstructive changes. IMPRESSION: 1. No significant abnormality small bowel. 2. Mild intermittent irritability and/or spasm of the distal small bowel with no fixed or obstructive defect. Electronically signed by: Mike Thornton M.D. 06/27/2016 9:55 AM Dictated Date/Time: 06/27/2016 9:54 AM
== END | disposition home or self-care (01) ==
LOC: C.RAD 07:59
PROVIDERS: ATTEND Internal Medicine Gastroenterology
DX: K56.69 Other intestinal obstruction (principal)

== ENCOUNTER → 2016-07-08 | Outpatient (CLI) | payer OTHER ==
[~2016-07-08] MED LIST changes: +GADOXETATE DISODIUM (NON-WT BASED PROCEDURE) IV PRN
--- NOTE | 2016-07-08 15:20 | DIAGNOSTIC IMAGING REPORT ---
LIVER MRI WITH AND WITHOUT INTRAVENOUS CONTRAST CLINICAL HISTORY: COLON CA, R/O LIVER METS COMPARISON STUDY: PET CT 06/11/2016. TECHNIQUE: Multiplanar multisequence MRI of the abdomen was performed both before and after the intravenous administration of 10 cc of Eovist contrast to evaluate the liver. FINDINGS: There are 2 similar-appearing enhancing lesions within the right hepatic lobe in segment 7 and 8. Both of these lesions demonstrate restricted diffusion. These correspond to the areas of FDG uptake on the prior PET/CT. Therefore, these are consistent with metastatic lesions. These lesions measure 1.6 cm. There is also enhancing 9 mm nodule within the base of the right lower lobe which demonstrates restricted diffusion. Therefore, this likely represents a metastatic focus. Small right pleural effusion has slightly decreased in size. There is motion artifact which results in suboptimal evaluation of the abdomen. The spleen and adrenal glands appear unremarkable. The pancreas is likely within normal limits. Gallbladder is not well-visualized but likely unremarkable. No retroperitoneal lymphadenopathy identified. No suspicious osseous lesions. Common bile duct is patent. There are few subcentimeter cysts within the right kidney. IMPRESSION: 1. There are 2 similar-appearing 1.6 cm enhancing lesions within the right hepatic lobe which are consistent with metastatic disease. These correspond to the areas of FDG uptake on the prior PET/CT. 2. There is a 9 mm nodule within the right lower lobe which is also highly suspicious for a metastatic focus. 3. Small right pleural effusion has improved. Electronically signed by: Yunier Corona M.D. 07/08/2016 3:18 PM Dictated Date/Time: 07/08/2016 2:35 PM
== END | disposition home or self-care (01) ==
LOC: C.MRI 11:06
PROVIDERS: ATTEND Internal Medicine Hematology & Oncology
DX: C18.7 Malignant neoplasm of sigmoid colon (principal)

== ENCOUNTER → 2016-07-28 | Outpatient (CLI) | payer OTHER ==
[~2016-07-28] MED LIST changes: -ASPI325T60 PO; -FRRS300 PO; -GADOXETATE DISODIUM (NON-WT BASED PROCEDURE) IV PRN; -RXC5 PO; -SYN75 PO
[2016-07-28 09:34] LABS: BASO % 0.1 %; BASO ABS # 0.01 K/uL (0-0.2); EOS % 0.4 %; HEMATOCRIT 33.2 % (42-52); IG% 0.1 %; LYMPH % 26.5 %; LYMPH ABS # 2.55 K/uL (1.2-3.4); MEAN CELL VOLUME 81.6 fL (80-100); MEAN CORPUSCULAR HEMOGLOBIN 25.8 pg (25-34); MEAN PLATELET VOLUME 10.3 fL (7.4-10.4); MONO % 8.5 %; NEUT % 64.4 %; PLATELET COUNT 342 K/uL (130-400); RED BLOOD COUNT 4.07 M/uL (4.7-6.1); WHITE BLOOD COUNT 9.61 K/uL (4.8-10.8)
[2016-07-28 10:02] LABS: ANISOCYTOSIS PRESENT; COMPLETE YES; MEAN CORPUSCULAR HGB CONC 31.6 g/dl (32-36); OVALOCYTES 1+
--- NOTE | 2016-08-01 09:32 | CODING QUERY NO DIAGNOSIS ---
TREATMENT RENDERED WITHOUT A DIAGNOSIS To promote full compliance with coding requirements relating to patient care, physician participation is requested in all cases of information coder uncertainty. Please assist us with providing a diagnosis/symptom for the test(s) below: A diagnosis/symptom was not documented on your Order. A valid diagnosis/symptom is required to bill all insurances. Please remember that we are unable to code a diagnosis of rule out, probable, possible, questionable, or suspected. Tests that require a diagnosis: DOS 07/28 * CBC DIAGNOSIS: Provider Signature: Date: Thank you Rocio Fulton Health Information Management Once completed, please kindly fax back to [phone] For questions please call [phone]
== END | disposition home or self-care (01) ==
LOC: C.LAB1850 09:03
PROVIDERS: ATTEND Internal Medicine Hematology & Oncology
DX: C18.7 Malignant neoplasm of sigmoid colon (principal); D50.9 Iron deficiency anemia, unspecified

== ENCOUNTER → 2016-08-20 | Outpatient (CLI) | payer OTHER ==
[2016-08-20 15:27] LABS: BASO % 0.4 %; BASO ABS # 0.02 K/uL (0-0.2); EOS % 0.7 %; HEMATOCRIT 30.1 % (42-52); IG% 0.4 %; LYMPH ABS # 2.03 K/uL (1.2-3.4); MEAN CELL VOLUME 83.6 fL (80-100); MEAN CORPUSCULAR HEMOGLOBIN 26.7 pg (25-34); MEAN CORPUSCULAR HGB CONC 31.9 g/dl (32-36); MEAN PLATELET VOLUME 9.1 fL (7.4-10.4); MONO % 11.3 %; NEUT % 50.2 %; PLATELET COUNT 276 K/uL (130-400); WHITE BLOOD COUNT 5.49 K/uL (4.8-10.8)
[2016-08-20 15:55] LABS: ALT/SGPT 16 U/L (12-78); BLOOD UREA NITROGEN 13 mg/dl (7-18); BUN/CREATININE RATIO 14.2 (10-20); CALCIUM 7.9 mg/dl (8.5-10.1); CARBON DIOXIDE 26 mmol/L (21-32); CHLORIDE 109 mmol/L (98-107); CREATININE 0.91 mg/dl (0.60-1.40); GLUCOSE 110 mg/dl (70-99); POTASSIUM 2.9 mmol/L (3.5-5.1); SODIUM 141 mmol/L (136-145)
[2016-08-20 15:58] LABS: ALB/GLOB RATIO 0.8 (0.9-2); ALKALINE PHOSPHATASE 68 U/L (45-117); AST/SGOT 20 U/L (15-37)
[2016-08-20 16:14] LABS: ANISOCYTOSIS PRESENT; COMPLETE YES; OVALOCYTES 1+; SCHISTOCYTES OCCASIONAL
== END | disposition home or self-care (01) ==
LOC: C.LAB1850 14:31
PROVIDERS: ATTEND Internal Medicine Hematology & Oncology
DX: C18.7 Malignant neoplasm of sigmoid colon (principal)

== ENCOUNTER → 2016-08-23 | Outpatient (CLI) | payer OTHER ==
[2016-08-23 11:38] LABS: BLOOD UREA NITROGEN 11 mg/dl (7-18); BUN/CREATININE RATIO 14.8 (10-20); CALCIUM 8.1 mg/dl (8.5-10.1); CARBON DIOXIDE 30 mmol/L (21-32); CHLORIDE 109 mmol/L (98-107); CREATININE 0.77 mg/dl (0.60-1.40); GLUCOSE 102 mg/dl (70-99); POTASSIUM 4.2 mmol/L (3.5-5.1); SODIUM 143 mmol/L (136-145)
== END | disposition home or self-care (01) ==
LOC: C.LAB 10:28
PROVIDERS: ATTEND Internal Medicine Hematology & Oncology
DX: C18.7 Malignant neoplasm of sigmoid colon (principal); E87.6 Hypokalemia

== ENCOUNTER → 2016-09-08 | Outpatient (CLI) | payer OTHER ==
[2016-09-08 12:16] LABS: HEMATOCRIT 31.9 % (42-52); MEAN CELL VOLUME 87.2 fL (80-100); MEAN CORPUSCULAR HEMOGLOBIN 27.3 pg (25-34); MEAN CORPUSCULAR HGB CONC 31.3 g/dl (32-36); MEAN PLATELET VOLUME 10.2 fL (7.4-10.4); PLATELET COUNT 286 K/uL (130-400); RED BLOOD COUNT 3.66 M/uL (4.7-6.1); WHITE BLOOD COUNT 6.57 K/uL (4.8-10.8)
[2016-09-08 12:30] LABS: ALT/SGPT 19 U/L (12-78); BLOOD UREA NITROGEN 17 mg/dl (7-18); BUN/CREATININE RATIO 16.6 (10-20); CALCIUM 7.9 mg/dl (8.5-10.1); CARBON DIOXIDE 30 mmol/L (21-32); CHLORIDE 104 mmol/L (98-107); GLUCOSE 139 mg/dl (70-99); POTASSIUM 4.3 mmol/L (3.5-5.1); SODIUM 139 mmol/L (136-145)
[2016-09-08 12:39] LABS: ALB/GLOB RATIO 0.6 (0.9-2); ALKALINE PHOSPHATASE 78 U/L (45-117); AST/SGOT 23 U/L (15-37)
== END | disposition home or self-care (01) ==
LOC: C.LAB1850 11:07
PROVIDERS: ATTEND Physician Assistant
DX: R91.8 Other nonspecific abnormal finding of lung field (principal); J90 Pleural effusion, not elsewhere classified

== ENCOUNTER 2016-09-09 17:24 | Inpatient (IN) | payer OTHER ==
[~2016-09-09] VITALS: Ht 165.1 cm; Wt 57.2 kg
[~2016-09-09 17:24] MED LIST changes: -ASPI81TA28 PO; -CAPE150T PO; -Enteral Nutrition Formula PO; -LEVO50TA6 PO; -LOSA50TA6 PO; -MAGN400T6 PO; -MGNO400 PO; -NUTR-7 PO; -ONDA8TAB6 PO; -PRLSR20 PO; -SYN25 PO; -XLD/500 PO; -[UNRECOGNIZED DRUG - CODE] PO; -[UNRECOGNIZED DRUG - OTHER] PO
[2016-09-09] MEDS ORDERED: FENTANYL CITRATE INJ 50 MCG/1 ML 2 ML VIAL IV STA (17:39)
[2016-09-09] MEDS ORDERED: ONDANSETRON INJ 2 MG/ML 2 ML VIAL IV STA (17:39)
[2016-09-09] MEDS ORDERED: SODIUM CHLORIDE 0.9% 1000ML 1,000 ML IV STA (17:40)
[2016-09-09] MEDS ORDERED: SODIUM CHLORIDE 0.9% 500ML 500 ML IV STA (17:40)
[2016-09-09 18:11] LABS: BASO % 0.1 %; BASO ABS # 0.01 K/uL (0-0.2); EOS % 0.3 %; HEMATOCRIT 37.5 % (42-52); IG% 0.1 %; LYMPH % 20.6 %; LYMPH ABS # 1.53 K/uL (1.2-3.4); MEAN CELL VOLUME 86.2 fL (80-100); MEAN CORPUSCULAR HEMOGLOBIN 27.8 pg (25-34); MEAN CORPUSCULAR HGB CONC 32.3 g/dl (32-36); MEAN PLATELET VOLUME 9.7 fL (7.4-10.4); MONO % 5.4 %; NEUT % 73.5 %; PLATELET COUNT 321 K/uL (130-400); RED BLOOD COUNT 4.35 M/uL (4.7-6.1); WHITE BLOOD COUNT 7.43 K/uL (4.8-10.8)
[2016-09-09 18:25] LABS: CALCIUM 8.3 mg/dl (8.5-10.1); POTASSIUM 4.2 mmol/L (3.5-5.1)
[2016-09-09 18:35] LABS: ANISOCYTOSIS PRESENT; COMPLETE YES; OVALOCYTES 1+; STOMATOCYTE 1+
[2016-09-09] MEDS ORDERED: OPTIRAY 320 IV PRN (19:00)
--- NOTE | 2016-09-09 19:08 | DIAGNOSTIC IMAGING REPORT ---
ABD/PELVIS IV CONTRAST ONLY CLINICAL HISTORY: 80 years-old Male presenting with upper abdominal pain, known colon CA. ? obstruction. TECHNIQUE: Multidetector CT of the abdomen and pelvis was performed after the administration of intravenous contrast. IV contrast: 118 mL of Optiray 320. A dose lowering technique was used consistent with the principles of ALARA (as low as reasonably achievable). COMPARISON: 06/14/2016. FINDINGS: Awake Overnight Monitor topogram: Unremarkable. Lung bases: Moderate right and small left pleural effusion with associated dependent opacities, likely atelectasis. Normal heart size. Coronary artery calcification. Liver: Normal morphology. No liver lesion. Parenchymal calcification noted. Patent hepatic vasculature. Biliary: Mild intrahepatic biliary ductal dilatation. No extrahepatic dilatation. Normal gallbladder. Pancreas: Mild parenchymal atrophy. Spleen: Multifocal calcifications likely indicate prior granulomatous disease. Adrenal glands: Normal. Kidneys and ureters: Multifocal cortical defects possibly indicating prior infection, infarct, or trauma. Multiple small hypodensities too small to characterize but likely cysts. Bilateral nephrolithiasis, the largest renal stone measuring 3 mm. Gastrointestinal tract: Evidence of small bowel obstruction with diffuse small bowel wall distention to the level of the terminal ileum. Rectal wall thickening also noted. Masslike thickening in the region of the ileocecal valve. Dilated small bowel maintains normal enhancement and wall thickness. Stomach is also markedly dilated. Hiatal hernia noted. Peritoneal cavity: Small amount of intraperitoneal fluid. No evidence of free intraperitoneal gas or pneumatosis. Bladder: Multiple bladder calculi again noted. Pelvic organs: Prostate enlargement likely secondary to benign prostatic hyperplasia. Vasculature: Atherosclerosis of the normal caliber abdominal aorta. Lymph nodes: No enlarged lymph nodes in the abdomen or pelvis. Abdominal wall: Normal. Musculoskeletal: Osteopenia. Mild degenerative changes. Deformity of the right inferior pubic ramus likely old fracture. IMPRESSION: 1. Evidence of small bowel obstruction with a mass at the ileocecal valve. This is most concerning for primary colonic neoplasm. No evidence of lymphadenopathy or metastatic disease in the abdomen or pelvis. 2. Moderate right and small left pleural effusions likely with atelectasis. 3. Bilateral nephrolithiasis. Bladder calculi. Electronically signed by: Juwan Dodge M.D. 09/09/2016 7:06 PM Dictated Date/Time: 09/09/2016 6:49 PM
[2016-09-09] MEDS ORDERED: ONDANSETRON INJ 2 MG/ML 2 ML VIAL IV PRN (20:15)
--- NOTE | 2016-09-09 20:27 | Pre-Operative Consultation ---
History General Date of Service: Sep 09, 2016. Stated Complaint: small bowel obstruction HPI HPI: The patient is a 80 year old male being seen at the request of Dr Mc for abdominal pain and CT findings of small bowel obstruction. 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 At the time of his colonoscopy, the scope could not be passed through the left sided tumor. He was admitted to the hospital in June 2016 for a small bowel obstruction which resolved conservatively. He was seen by Dr. Bautista at that time. Colon cancer was diagnosed afterwards. He in on xeloda under the care of Dr. Tolbert. Did not want more intensive chemotherapy. Presents with acute onset of crampy, severe, 10/10 abdominal pain, generalized in abdomen, associated with nausea and vomiting. Last bowel movement was earlier today and was normal. Has had about a 10 lb weight loss recently. Pain is now a 0/10. Only prior abdominal operation was an appendectomy. Historian: patient Risk Assessment Daily beta paula use?: No Problem List Medical Problems: (1) Dehydration Status: Acute (2) Small bowel obstruction Status: Acute (3) Vomiting Status: Acute Medical & Surgical History Past Medical History: diverticulitis, heart disease, kidney stones Past Surgical History: appendectomy, tonsillectomy Family History Family History: no pertinent family hx Social History Hx Tobacco Use In Past Year?: No Smoking Status: Former Smoker Alcohol: none Drug Use: none Marital status: Housing status: lives with family Occupation status: retired Immunizations Have You Had Influenza Vaccine: Yes Date Of Influenza Vaccine: Nov 03, 2012 Have You Had Tetanus Vaccine: UTD History of Pneumococcal: Unknown History Hepatitis B Vaccine: Unknown Allergies Allergies: Coded Allergies: Clarithromycin (Verified Allergy, Severe, "MAJOR RXN" ?, 09/09/16) Penicillins (Verified Allergy, Severe, "MAJOR RXN" ?, 09/09/16) Sulfa Antibiotics (Verified Allergy, Severe, "SULFA DRUGS": "MAJOR RXN"?, 09/09/16) Cephalosporins (Verified Allergy, Unknown, ?, 09/09/16) Diltiazem (Verified Allergy, Unknown, FLUSHING, 09/09/16) Morphine (Verified Allergy, Unknown, N/V, 09/09/16) Streptokinase (Verified Allergy, Unknown, ?, 09/09/16) Sulfonylureas (Verified Allergy, Unknown, RASH, 09/09/16) Codeine (Verified Adverse Reaction, Mild, NAUSEA / VOMITING, 09/09/16) Medications Current Inpatient Medications Current Inpatient Medications Medications (Trade) Dose Ordered Sig/Lenka Route Start Time Stop Time Status Last Admin Dose Admin Sodium Chloride 1,000 ml @ 125 mls/hr Q8H STAT IV 09/09/16 17:40 09/10/16 01:39 09/09/16 18:00 125 MLS/HR Ioversol (Optiray 320) 111 ml UD PRN IV 09/09/16 19:00 09/13/16 18:59 Pantoprazole Sodium 40 mg/ Syringe 10 ml @ 5 mls/min DAILY@11 IV 09/10/16 11:00 10/10/16 10:59 UNV Ondansetron HCl (Zofran Inj) 4 mg Q6H PRN IV 09/09/16 20:15 10/09/16 20:14 UNV Heparin Sodium (Porcine) (Heparin Sq 5000 Unit/0.5ml) 5,000 unit Q12H SQ 09/09/16 20:15 10/09/16 20:14 UNV Review of Systems Review of Systems Review of Systems ROS notable for weight loss, decreased appetite. Physical Exam Physical Exam General Appearance: + ill appearance (cachetic) Ears, Nose, Throat: + normal ENT inspection Neck: No tracheal deviation Respiratory: No chest tenderness, No accessory muscle use, No decreased breath sounds Cardiovascular: + systolic murmur, No abnormal rate, No edema Abdomen: + abnormal bowel sounds (hypoactive), + distension (moderate), No rebound, No tenderness, No guarding Extremities: No edema, No swelling Neurologic/Psychiatric: No abnormal meals on wheels driver II-XII, No decreased LOC, No motor deficit/weakness Skin Characteristics: No abnormal color, No cyanosis Diagnostics Labs Labs Results Past 24 Hours Test 09/09/16 17:55 Range/Units White Blood Count 7.43 4.8-10.8 K/uL Red Blood Count 4.35 4.7-6.1 M/uL Hemoglobin 12.1 14.0-18.0 g/dL Hematocrit 37.5 42-52 % Mean Corpuscular Volume 86.2 80-100 fL Mean Corpuscular Hemoglobin 27.8 25-34 pg Mean Corpuscular Hemoglobin Concent 32.3 32-36 g/dl Platelet Count 321 130-400 K/uL Mean Platelet Volume 9.7 7.4-10.4 fL Neutrophils (%) (Auto) 73.5 % Lymphocytes (%) (Auto) 20.6 % Monocytes (%) (Auto) 5.4 % Eosinophils (%) (Auto) 0.3 % Basophils (%) (Auto) 0.1 % Neutrophils # (Auto) 5.46 1.4-6.5 K/uL Lymphocytes # (Auto) 1.53 1.2-3.4 K/uL Monocytes # (Auto) 0.40 0.11-0.59 K/uL Eosinophils # (Auto) 0.02 0-0.5 K/uL Basophils # (Auto) 0.01 0-0.2 K/uL RDW Standard Deviation 78.1 36.4-46.3 fL RDW Coefficient of Variation 25.2 11.5-14.5 % Immature Granulocyte % (Auto) 0.1 % Immature Granulocyte # (Auto) 0.01 0.00-0.02 K/uL Anisocytosis PRESENT Ovalocytes 1+ Stomatocytes 1+ Sodium Level 139 136-145 mmol/L Potassium Level 4.2 3.5-5.1 mmol/L Chloride Level 102 98-107 mmol/L Carbon Dioxide Level 30 21-32 mmol/L Anion Gap 7.0 3-11 mmol/L Blood Urea Nitrogen 17 7-18 mg/dl Creatinine 1.00 0.60-1.40 mg/dl Est Creatinine Clear Calc Drug Dose 45.1 ml/min Estimated GFR () 81.4 Estimated GFR (Non- 70.3 BUN/Creatinine Ratio 17.0 10-20 Random Glucose 122 70-99 mg/dl Calcium Level 8.3 8.5-10.1 mg/dl Total Bilirubin 0.8 0.2-1 mg/dl Direct Bilirubin 0.2 0-0.2 mg/dl Aspartate Amino Transf (AST/SGOT) 26 15-37 U/L Alanine Aminotransferase (ALT/SGPT) 18 12-78 U/L Alkaline Phosphatase 86 45-117 U/L Troponin I 0.034 0-0.045 ng/ml Total Protein 6.7 6.4-8.2 gm/dl Albumin 2.7 3.4-5.0 gm/dl Lipase 71 73-393 U/L Lab Interpretation Lab Interpretation: labs were reviewed Diagnostic Radiology Diagnostic Radiology CT scan shows small bowel obstruction with suggestion of ileocecal mass as the cause. Impression Assessment and Plan Assessment and Plan 80 yr old man with known left sided colon cancer metastatic to lung/ liver now with second episode of small bowel obstruction. Concerning as this CT suggests a right sided mass also (?synchronous disease vs artifact on CT). If he truly has two colon cancers in the setting of metastasis, surgical option would be diverting ileostomy for life. Explained the typical problems with high output and dehydration following ileostomy. Hopefully, he will resolve conservatively with ng decompression as he did on his last admission. Currently, there is no sign of bowel ischemia or need for urgent surgical intervention. Discussed starting end of life planning - ?dnr, ?hospice.
--- NOTE | 2016-09-09 20:47 | History and Physical ---
History & Physical Date & Time of Service: Sep 09, 2016 at 20:26 Chief Complaint: Abdominal Pain Primary Care Physician: Sonido Riojas M.D. History of Present Illness Source: patient, family 80 y/o M Hx CAD, HTN, pleural effusion, metastatic colon CA. Pt had been medically managed for an SBO 06/25. A few weeks prior he had been diagnosed with colon CA on a routine colonoscopy. He is currently receiving oral chemotherapy. He developed abdominal pain, nausea and vomiting earlier in the day and presented for evaluation. A CT revealed an SBO related to a distinct mass at the ileocecal junction. This was not as prominent on a previous CT. Past Medical/Surgical History Medical Problems: (1) Coronary artery disease - history of TN Status: Chronic (2) Hypercholesteremia Status: Chronic (3) Hypertension Status: Chronic (4) Kidney stones Status: Chronic (5) Metastatic colon CA - liver and possibly lung mets Status: Resolved (6) Vertigo Status: Chronic 7) Malignant pleural effusion Family History FHx: heart disease FHx: kidney disease/stones Social History Smoking Status: Former Smoker Drug Use: none Marital Status: Housing status: lives with family Occupational Status: retired Immunizations History of Influenza Vaccine: Yes Influenza Vaccine Date: Nov 03, 2012 History of Tetanus Vaccine?: UTD History of Pneumococcal: Unknown History of Hepatitis B Vaccine: Unknown Multi-Drug Resistant Organisms History of MDRO: No Allergies Coded Allergies: Clarithromycin (Verified Allergy, Severe, "MAJOR RXN" ?, 09/09/16) Penicillins (Verified Allergy, Severe, "MAJOR RXN" ?, 09/09/16) Sulfa Antibiotics (Verified Allergy, Severe, "SULFA DRUGS": "MAJOR RXN"?, 09/09/16) Cephalosporins (Verified Allergy, Unknown, ?, 09/09/16) Diltiazem (Verified Allergy, Unknown, FLUSHING, 09/09/16) Morphine (Verified Allergy, Unknown, N/V, 09/09/16) Streptokinase (Verified Allergy, Unknown, ?, 09/09/16) Sulfonylureas (Verified Allergy, Unknown, RASH, 09/09/16) Codeine (Verified Adverse Reaction, Mild, NAUSEA / VOMITING, 09/09/16) Home Medications Scheduled Ergocalciferol (Vitamin D 18465 Unit), 50,000 UNIT PO 2XWK Ferrous Sulfate (Iron), 325 MG PO DAILY Furosemide (Lasix), 20 MG PO DAILY Levothyroxine Sodium (Levothyroxine Sodium), 50 MCG PO DAILY Metformin Hcl (Glucophage), 500 MG PO qam with breakfast Nitroglycerin (Nitrostat), 0.4 MG UT PRN Omeprazole (Prilosec), 1 CAP PO DAILY Potassium Chloride (Micro-K Ext Rel), 10 MEQ PO DAILY Simethicone (Mylanta Gas Minis), 311 MG PO DIRECTED Simvastatin (Zocor), 40 MG PO QPM Tamsulosin Hcl (Flomax), 0.4 MG PO DAILY Review of Systems Constitutional: + weight loss, + weakness, + fatigue, No fever, No chills, No sweats Eyes: No worsening of vision, No eye pain ENT: No hearing loss, No nasal symptoms Respiratory: No cough, No sputum, No wheezing Cardiovascular: No chest pain, No orthopnea, No PND Abdomen: + pain, + nausea, + vomiting Musculoskeletal: No joint pain, No muscle pain Genitourinary - Male: No hematuria Neurologic: + weakness, No memory loss Psychiatric: No depression symptoms Endocrine: + fatigue Physical Exam Vital Signs Date Time Temp Pulse Resp B/P (MAP) Pulse Ox O2 Delivery O2 Flow Rate FiO2 09/09/16 20:10 67 14 109/63 94 Room Air 09/09/16 19:20 71 17 115/64 95 Room Air 09/09/16 17:28 37.0 82 16 105/69 95 Room Air General Appearance: + cachetic, + pertinent finding (Ill appearing elderly male in no acute distress) Head: normocephalic, atraumatic Eyes: normal inspection ENT: normal ENT inspection Neck: supple, no JVD Respiratory/Chest: chest non-tender, lungs clear, normal breath sounds Cardiovascular: no JVD, no murmur, + tachycardia Abdomen/GI: + abnormal bowel sounds, + pertinent finding (Pt does not have abdominal tenderness following placement of an NGT) Back: normal inspection, no CVA tenderness Extremities/Musculoskelatal: normal inspection, no calf tenderness, normal capillary refill, no pedal edema, normal range of motion Neurologic/Psych: prepress specialist II-XII nml as tested, no motor/sensory deficits, alert Skin: + pertinent finding (Irregular pigmentation - slight jaundice) Diagnostics Laboratory Results Results Past 24 Hours Test 09/09/16 17:55 09/09/16 20:22 Range/Units White Blood Count 7.43 4.8-10.8 K/uL Red Blood Count 4.35 4.7-6.1 M/uL Hemoglobin 12.1 14.0-18.0 g/dL Hematocrit 37.5 42-52 % Mean Corpuscular Volume 86.2 80-100 fL Mean Corpuscular Hemoglobin 27.8 25-34 pg Mean Corpuscular Hemoglobin Concent 32.3 32-36 g/dl Platelet Count 321 130-400 K/uL Mean Platelet Volume 9.7 7.4-10.4 fL Neutrophils (%) (Auto) 73.5 % Lymphocytes (%) (Auto) 20.6 % Monocytes (%) (Auto) 5.4 % Eosinophils (%) (Auto) 0.3 % Basophils (%) (Auto) 0.1 % Neutrophils # (Auto) 5.46 1.4-6.5 K/uL Lymphocytes # (Auto) 1.53 1.2-3.4 K/uL Monocytes # (Auto) 0.40 0.11-0.59 K/uL Eosinophils # (Auto) 0.02 0-0.5 K/uL Basophils # (Auto) 0.01 0-0.2 K/uL RDW Standard Deviation 78.1 36.4-46.3 fL RDW Coefficient of Variation 25.2 11.5-14.5 % Immature Granulocyte % (Auto) 0.1 % Immature Granulocyte # (Auto) 0.01 0.00-0.02 K/uL Anisocytosis PRESENT Ovalocytes 1+ Stomatocytes 1+ Sodium Level 139 136-145 mmol/L Potassium Level 4.2 3.5-5.1 mmol/L Chloride Level 102 98-107 mmol/L Carbon Dioxide Level 30 21-32 mmol/L Anion Gap 7.0 3-11 mmol/L Blood Urea Nitrogen 17 7-18 mg/dl Creatinine 1.00 0.60-1.40 mg/dl Est Creatinine Clear Calc Drug Dose 45.1 ml/min Estimated GFR () 81.4 Estimated GFR (Non- 70.3 BUN/Creatinine Ratio 17.0 10-20 Random Glucose 122 70-99 mg/dl Calcium Level 8.3 8.5-10.1 mg/dl Total Bilirubin 0.8 0.2-1 mg/dl Direct Bilirubin 0.2 0-0.2 mg/dl Aspartate Amino Transf (AST/SGOT) 26 15-37 U/L Alanine Aminotransferase (ALT/SGPT) 18 12-78 U/L Alkaline Phosphatase 86 45-117 U/L Troponin I 0.034 0-0.045 ng/ml Total Protein 6.7 6.4-8.2 gm/dl Albumin 2.7 3.4-5.0 gm/dl Lipase 71 73-393 U/L Diagnostic Radiology CT 1. Evidence of small bowel obstruction with a mass at the ileocecal valve. This is most concerning for primary colonic neoplasm. No evidence of lymphadenopathy or metastatic disease in the abdomen or pelvis. 2. Moderate right and small left pleural effusions likely with atelectasis. 3. Bilateral nephrolithiasis. Bladder calculi. Impression Assessment and Plan 80 y/o M Hx CAD, HTN, pleural effusion, metastatic colon CA. Pt had been medically managed for an SBO 06/25. A few weeks prior he had been diagnosed with colon CA on a routine colonoscopy. He is currently receiving oral chemotherapy. He developed abdominal pain, nausea and vomiting earlier in the day and presented for evaluation. A CT revealed an SBO related to a distinct mass at the ileocecal junction. This was not as prominent on a previous CT. 1) SBO - appears due to enlarging ileocecal mass. Will treat with NGT, IVF, bowel rest, pain control. Surgery is consulted as this may not resolve medically cosidering his underlying malignancies. 2) CAD - no evidence of ACS 3) Colon CA - can f/u on discharge 4) Hypothyroidism - start IV Synthroid if he is hospitalized for an extended period Full code Heparin prophylaxis Total time for this admit including review of labs, meds, imaging - discussion with pt, family, ER attendng - 38 min Level of Care Med/Surg Resuscitation Status FULL RESUSCITATION VTE Prophylaxis VTE Risk Assessment Done? Y/N: Yes Risk Level: High Given or contraindicated: Unfractionated heparin SQ
[2016-09-09 21:29] VITALS: BP 95/60; PULSE 72; TEMP 36.9; O2SAT 96
[2016-09-09 21:30] VITALS: BP 95/60; PULSE 72; TEMP 36.9; Ht 165.1 cm; Wt 57.2 kg
[2016-09-09] MEDS: SODIUM CHLORIDE 0.9% 1000ML 1,000 ML IV SCH ×2 (22:12→22:20)
[2016-09-09 22:18] LABS: URINE APPEARANCE CLEAR (CLEAR); URINE BILIRUBIN NEG (NEG); URINE COLOR YELLOW; URINE NITRITE NEG (NEG); URINE PH 6.5 (4.5-7.5); URINE SPECIFIC GRAVITY > 1.045 (1.000-1.030); UROBILINOGEN NEG (NEG); ZZUR CULT IF INDIC CLEAN CATCH NO
[2016-09-09 22:24] LABS: MANUAL MICROSCOPIC REQUIRED? NO; REVIEW REQ? NO
[2016-09-09 22:40] VITALS: BP 106/67; PULSE 58; TEMP 36.8; O2SAT 96
--- NOTE | 2016-09-09 22:55 | EMERGENCY ROOM VISIT NOTE ---
History Report prepared by Vance: Doc Contreras Under the Supervision of: Dr. Flaco Lopez M.D. First contact with patient: 17:30 Chief Complaint: ABDOMINAL PAIN Stated Complaint: ABDOMINAL PAIN History of Present Illness The patient is a 80 year old male who presents to the Emergency Room with complaints of upper abdominal pain that began yesterday. He rates his pain a 10/ 10 in severity. At this time, he had some chili for dinner, and ever since then he has been experiencing this pain. His pain is radiating to his lower sternum. He currently has colon cancer. He is on his third week of medication for it. He has felt nauseated and had a small episode of vomiting this morning. Pt denies LOC, headache, fevers, chills, diaphoresis, visual changes, neck pain, chest pain, breathing difficulties, back pain, melena, hematochezia, urinary symptoms , numbness, weakness, lymphadenopathy, rash, or other complaints. He has a history of an appendectomy and tonsillectomy. Source of History: patient Onset: yesterday Position: abdomen (upper) Symptom Intensity: 10/10 Quality: cramping Timing: constant Associated Symptoms: + nausea, + vomiting Review of Systems See HPI for pertinent positives and negatives. A total of ten systems were reviewed and were otherwise negative. Past Medical & Surgical Medical Problems: (1) Coronary artery disease (2) Hypercholesteremia (3) Hypertension (4) Kidney stones (5) Myocardial infarct (6) Pleural effusion (7) SBO (small bowel obstruction) (8) Vertigo Family History FHx: heart disease FHx: kidney disease/stones Social History Smoking Status: Former Smoker Smokeless Tobacco Use: No Alcohol Use: none Drug Use: none Marital Status: Housing Status: lives with significant other Occupation Status: retired Current/Historical Medications Scheduled Ergocalciferol (Vitamin D 72072 Unit), 50,000 UNIT PO 2XWK Ferrous Sulfate (Iron), 325 MG PO DAILY Furosemide (Lasix), 20 MG PO DAILY Levothyroxine Sodium (Levothyroxine Sodium), 50 MCG PO DAILY Metformin Hcl (Glucophage), 500 MG PO qam with breakfast Nitroglycerin (Nitrostat), 0.4 MG UT PRN Omeprazole (Prilosec), 1 CAP PO DAILY Potassium Chloride (Micro-K Ext Rel), 10 MEQ PO DAILY Simethicone (Mylanta Gas Minis), 311 MG PO DIRECTED Simvastatin (Zocor), 40 MG PO QPM Tamsulosin Hcl (Flomax), 0.4 MG PO DAILY Allergies Coded Allergies: Clarithromycin (Verified Allergy, Severe, "MAJOR RXN" ?, 09/09/16) Penicillins (Verified Allergy, Severe, "MAJOR RXN" ?, 09/09/16) Sulfa Antibiotics (Verified Allergy, Severe, "SULFA DRUGS": "MAJOR RXN"?, 09/09/16) Cephalosporins (Verified Allergy, Unknown, ?, 09/09/16) Diltiazem (Verified Allergy, Unknown, FLUSHING, 09/09/16) Morphine (Verified Allergy, Unknown, N/V, 09/09/16) Streptokinase (Verified Allergy, Unknown, ?, 09/09/16) Sulfonylureas (Verified Allergy, Unknown, RASH, 09/09/16) Codeine (Verified Adverse Reaction, Mild, NAUSEA / VOMITING, 09/09/16) Physical Exam Vital Signs Date Time Temp Pulse Resp B/P (MAP) Pulse Ox O2 Delivery O2 Flow Rate FiO2 09/09/16 20:10 67 14 109/63 94 Room Air 09/09/16 19:20 71 17 115/64 95 Room Air 09/09/16 17:28 37.0 82 16 105/69 95 Room Air Physical Exam GENERAL: Awake, alert, uncomfortable-appearing, in no distress HENT: Normocephalic, atraumatic. Oropharynx unremarkable. EYES: Normal conjunctiva. Sclera non-icteric. NECK: Supple. No nuchal rigidity. FROM. No JVD. RESPIRATORY: Clear to auscultation. CARDIAC: Regular rate, normal rhythm. Extremities warm and well perfused. Pulses equal. ABDOMEN: Soft, non-distended. Upper quadrant tenderness to palpation. No rebound or guarding. No masses. RECTAL: Deferred. MUSCULOSKELETAL: Chest examination reveals no tenderness. The back is symmetrical on inspection without obvious abnormality. There is no CVA tenderness to palpation. No joint edema. LOWER EXTREMITIES: Calves are equal size bilaterally and non-tender. 2+ bilateral edema. No discoloration. NEURO: Normal sensorium. No sensory or motor deficits noted. SKIN: No rash or jaundice noted. Medical Decision & Procedures ER Provider Diagnostic Interpretation: Radiology results as stated below per my review and radiologist interpretation: ABD/PELVIS IV CONTRAST ONLY CLINICAL HISTORY: 80 years-old Male presenting with upper abdominal pain, known colon CA. ? obstruction. TECHNIQUE: Multidetector CT of the abdomen and pelvis was performed after the administration of intravenous contrast. IV contrast: 118 mL of Optiray 320. A dose lowering technique was used consistent with the principles of ALARA (as low as reasonably achievable). COMPARISON: 06/14/2016. 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 Lung bases: Moderate right and small left pleural effusion with associated dependent opacities, likely atelectasis. Normal heart size. Coronary artery calcification. Liver: Normal morphology. No liver lesion. Parenchymal calcification noted. Patent hepatic vasculature. Biliary: Mild intrahepatic biliary ductal dilatation. No extrahepatic dilatation. Normal gallbladder. Pancreas: Mild parenchymal atrophy. Spleen: Multifocal calcifications likely indicate prior granulomatous disease. Adrenal glands: Normal. Kidneys and ureters: Multifocal cortical defects possibly indicating prior infection, infarct, or trauma. Multiple small hypodensities too small to characterize but likely cysts. Bilateral nephrolithiasis, the largest renal stone measuring 3 mm. Gastrointestinal tract: Evidence of small bowel obstruction with diffuse small bowel wall distention to the level of the terminal ileum. Rectal wall thickening also noted. Masslike thickening in the region of the ileocecal valve. Dilated small bowel maintains normal enhancement and wall thickness. Stomach is also markedly dilated. Hiatal hernia noted. Peritoneal cavity: Small amount of intraperitoneal fluid. No evidence of free intraperitoneal gas or pneumatosis. Bladder: Multiple bladder calculi again noted. Pelvic organs: Prostate enlargement likely secondary to benign prostatic hyperplasia. Vasculature: Atherosclerosis of the normal caliber abdominal aorta. Lymph nodes: No enlarged lymph nodes in the abdomen or pelvis. Abdominal wall: Normal. Musculoskeletal: Osteopenia. Mild degenerative changes. Deformity of the right inferior pubic ramus likely old fracture. IMPRESSION: 1. Evidence of small bowel obstruction with a mass at the ileocecal valve. This is most concerning for primary colonic neoplasm. No evidence of lymphadenopathy or metastatic disease in the abdomen or pelvis. 2. Moderate right and small left pleural effusions likely with atelectasis. 3. Bilateral nephrolithiasis. Bladder calculi. Electronically signed by: Juwan Dodge M.D. 09/09/2016 7:06 PM Dictated Date/Time: 09/09/2016 6:49 PM Laboratory Results 09/09/16 17:55 Red Blood Count 4.35, Mean Corpuscular Volume 86.2, Mean Corpuscular Hemoglobin 27.8, Mean Corpuscular Hemoglobin Concent 32.3, Mean Platelet Volume 9.7, Neutrophils (%) (Auto) 73.5, Lymphocytes (%) (Auto) 20.6, Monocytes (%) (Auto) 5.4, Eosinophils (%) (Auto) 0.3, Basophils (%) (Auto) 0.1, Neutrophils # (Auto) 5.46, Lymphocytes # (Auto) 1.53, Monocytes # (Auto) 0.40, Eosinophils # (Auto) 0.02, Basophils # (Auto) 0.01 09/09/16 17:55 Test 09/09/16 17:55 White Blood Count 7.43 K/uL (4.8-10.8) Red Blood Count 4.35 M/uL (4.7-6.1) Hemoglobin 12.1 g/dL (14.0-18.0) Hematocrit 37.5 % (42-52) Mean Corpuscular Volume 86.2 fL (80-100) Mean Corpuscular Hemoglobin 27.8 pg (25-34) Mean Corpuscular Hemoglobin Concent 32.3 g/dl (32-36) Platelet Count 321 K/uL (130-400) Mean Platelet Volume 9.7 fL (7.4-10.4) Neutrophils (%) (Auto) 73.5 % Lymphocytes (%) (Auto) 20.6 % Monocytes (%) (Auto) 5.4 % Eosinophils (%) (Auto) 0.3 % Basophils (%) (Auto) 0.1 % Neutrophils # (Auto) 5.46 K/uL (1.4-6.5) Lymphocytes # (Auto) 1.53 K/uL (1.2-3.4) Monocytes # (Auto) 0.40 K/uL (0.11-0.59) Eosinophils # (Auto) 0.02 K/uL (0-0.5) Basophils # (Auto) 0.01 K/uL (0-0.2) RDW Standard Deviation 78.1 fL (36.4-46.3) RDW Coefficient of Variation 25.2 % (11.5-14.5) Immature Granulocyte % (Auto) 0.1 % Immature Granulocyte # (Auto) 0.01 K/uL (0.00-0.02) Anisocytosis PRESENT Ovalocytes 1+ Stomatocytes 1+ Anion Gap 7.0 mmol/L (3-11) Est Creatinine Clear Calc Drug Dose 45.1 ml/min Estimated GFR () 81.4 Estimated GFR (Non- 70.3 BUN/Creatinine Ratio 17.0 (10-20) Calcium Level 8.3 mg/dl (8.5-10.1) Total Bilirubin 0.8 mg/dl (0.2-1) Direct Bilirubin 0.2 mg/dl (0-0.2) Aspartate Amino Transf (AST/SGOT) 26 U/L (15-37) Alanine Aminotransferase (ALT/SGPT) 18 U/L (12-78) Alkaline Phosphatase 86 U/L (45-117) Troponin I 0.034 ng/ml (0-0.045) Total Protein 6.7 gm/dl (6.4-8.2) Albumin 2.7 gm/dl (3.4-5.0) Lipase 71 U/L (73-393) Laboratory results reviewed by me Medications Administered Medications (Trade) Dose Ordered Sig/Lenka Route Start Time Stop Time Status Last Admin Dose Admin Ondansetron HCl (Zofran Inj) 4 mg NOW STAT IV 09/09/16 17:39 09/09/16 17:41 DC 09/09/16 18:05 4 MG Fentanyl Citrate (Fentanyl Inj) 50 mcg NOW STAT IV 09/09/16 17:39 09/09/16 17:41 DC 09/09/16 18:06 50 MCG Sodium Chloride 1,000 ml @ 125 mls/hr Q8H STAT IV 09/09/16 17:40 09/10/16 01:39 09/09/16 18:00 125 MLS/HR Sodium Chloride 500 ml @ 999 mls/hr Q31M STAT IV 09/09/16 17:40 09/09/16 18:10 DC 09/09/16 18:00 999 MLS/HR ECG Indication: abdominal pain Rate (beats per minute): 69 Rhythm: normal sinus Findings: nonspecific-ST abn, Q waves (Inferior), RBBB, left axis deviation ED Course 1730: The patient was evaluated in room C3. A complete history and physical exam was performed. 1738: Ordered Fentanyl Inj 50 mcg IV, Zofran Inj 4 mg IV 1739: Ordered Sodium Chloride 500 ml @ 999 mls/hr IV, Sodium Chloride 1000 ml @ 125 mls/hr IV 1906: Upon reexamination, the patient was resting. I discussed the test results and treatment plan with him. The patient will be evaluated by Dr. Derek VÁSQUEZ, for further management. Medical Decision Triage Nursing notes reviewed. The patient's presentation and history were concerning for abdominal pain. Etiologies such as appendicitis, diverticulitis, obstruction, inflammatory bowel disease, renal colic, PUD, biliary pathology, pancreatitis, mesenteric ischemia, aortic pathology, infections, genitourinary, UTI, perforated viscus, as well as others were entertained. The patient was evaluated. The patient was given Zofran and fentanyl for symptom control. He did feel better with this. The patient went to CAT scan and was found to have a bowel obstruction. An NG tube was ordered. Laboratory testing was unremarkable. I did consult with surgery and internal medicine. The patient was evaluated in the Emergency Room and admitted by internal medicine for further management. Medication Reconcilliation Current Medication List: was personally reviewed by me Blood Pressure Screening Patient's blood pressure: Normal blood pressure Blood pressure disposition: Did not require urgent referral Consults Time Called: 1904 Consulting Physician: Dr. Derek VÁSQUEZ Returned Call: 1906 Discussed the patient's case. The patient will be evaluated for further treatment and disposition. Impression Primary Impression: SBO (small bowel obstruction) Scribe Attestation The scribe's documentation has been prepared under my direction and personally reviewed by me in its entirety. I confirm that the note above accurately reflects all work, treatment, procedures, and medical decision making performed by me. Departure Information Dispostion Being Evaluated By Hospitalist Referrals No Doctor, Assigned (PCP) Patient Instructions [facility]
[2016-09-09 23:04] LABS: INR 1.1 (0.9-1.1); PROTHROMBIN TIME (PATIENT) 11.5 SECONDS (9.0-12.0)
[2016-09-09] MEDS: HYDROmorphone INJ 0.5 MG/0.5 ML SYR IV PRN (23:49)
[2016-09-10] MEDS: HYDROmorphone INJ 0.5 MG/0.5 ML SYR IV PRN ×3 (05:39→23:01)
[2016-09-10 07:50] VITALS: O2SAT 92
[2016-09-10 07:52] VITALS: BP 96/46; PULSE 61; TEMP 36.7; O2SAT 92
[2016-09-10] MEDS: SODIUM CHLORIDE 0.9% 1000ML 1,000 ML IV SCH (09:56)
[2016-09-10] MEDS: HEPARIN SOD 5000 UNIT/0.5 ML CARP SQ SCH ×2 (10:01→21:55)
[2016-09-10] MEDS: PANTOprazole INJ 40 MG in SYRINGE 0 ML IV SCH (11:56)
--- NOTE | 2016-09-10 12:29 | Hospitalist Progress Note ---
Hospitalist Progress Note Date of Service Sep 10, 2016. Subjective Pt evaluation today including: conversation w/ patient, conversation w/ family , physical exam, lab review, conversation w/ desktop support consultant (GI Dr. Loya) Voiding: voiding difficulty (has chronic urinary frequency) Pt has irritation in throat from NGT, otherwise denies abd pain. No flatus. Family reports they spoke to his Oncologist and he is to hold his chemo for now. Dr. Loya GI called to review the case as family has been calling [facility] on their own accord. He is consulted now to see about stent placement in colon but states that this carries a high risk of perforation in the ileum. Constitutional: No fever Respiratory: No shortness of breath Cardiovascular: No chest pain Abdomen: No pain, No nausea All Other Systems: Reviewed and Negative Objective Vital Signs Date Time Temp Pulse Resp B/P (MAP) Pulse Ox O2 Delivery O2 Flow Rate FiO2 09/10/16 08:15 Room Air 09/10/16 07:52 36.7 61 14 96/46 (63) 92 Room Air 09/10/16 07:50 92 Room Air 09/09/16 23:54 Room Air 09/09/16 22:40 36.8 58 16 106/67 (80) 96 Room Air 09/09/16 21:30 36.9 72 18 95/60 Room Air 09/09/16 21:30 Room Air 09/09/16 21:29 36.9 72 18 95/60 (72) 96 Room Air 09/09/16 20:59 66 17 99/56 95 09/09/16 20:10 67 14 109/63 94 Room Air 09/09/16 19:20 71 17 115/64 95 Room Air 09/09/16 17:28 37.0 82 16 105/69 95 Room Air Physical Exam General Appearance: no apparent distress, + thin Eyes: normal inspection, sclerae normal ENT: hearing grossly normal, pharynx normal Neck: trachea midline Respiratory/Chest: lungs clear, normal breath sounds, no respiratory distress, no accessory muscle use Cardiovascular: regular rate, rhythm, no gallop, no murmur, + pertinent finding (has trace pitting edema legs and hands bilat) Abdomen: non tender, soft, + abnormal bowel sounds Extremities: + pertinent finding (hands bilaterally with edema, DIP joint deformities) Neurologic/Psychiatric: alert, normal mood/affect, oriented x 3 Skin: normal color, warm/dry, no rash Laboratory Results Last 24 Hours Test 09/09/16 17:55 09/09/16 22:00 White Blood Count 7.43 K/uL Red Blood Count 4.35 M/uL Hemoglobin 12.1 g/dL Hematocrit 37.5 % Mean Corpuscular Volume 86.2 fL Mean Corpuscular Hemoglobin 27.8 pg Mean Corpuscular Hemoglobin Concent 32.3 g/dl Platelet Count 321 K/uL Mean Platelet Volume 9.7 fL Neutrophils (%) (Auto) 73.5 % Lymphocytes (%) (Auto) 20.6 % Monocytes (%) (Auto) 5.4 % Eosinophils (%) (Auto) 0.3 % Basophils (%) (Auto) 0.1 % Neutrophils # (Auto) 5.46 K/uL Lymphocytes # (Auto) 1.53 K/uL Monocytes # (Auto) 0.40 K/uL Eosinophils # (Auto) 0.02 K/uL Basophils # (Auto) 0.01 K/uL RDW Standard Deviation 78.1 fL RDW Coefficient of Variation 25.2 % Immature Granulocyte % (Auto) 0.1 % Immature Granulocyte # (Auto) 0.01 K/uL Anisocytosis PRESENT Ovalocytes 1+ Stomatocytes 1+ Prothrombin Time 11.5 SECONDS Prothromb Time International Ratio 1.1 Sodium Level 139 mmol/L Potassium Level 4.2 mmol/L Chloride Level 102 mmol/L Carbon Dioxide Level 30 mmol/L Anion Gap 7.0 mmol/L Blood Urea Nitrogen 17 mg/dl Creatinine 1.00 mg/dl Est Creatinine Clear Calc Drug Dose 45.1 ml/min Estimated GFR () 81.4 Estimated GFR (Non- 70.3 BUN/Creatinine Ratio 17.0 Random Glucose 122 mg/dl Calcium Level 8.3 mg/dl Total Bilirubin 0.8 mg/dl Direct Bilirubin 0.2 mg/dl Aspartate Amino Transf (AST/SGOT) 26 U/L Alanine Aminotransferase (ALT/SGPT) 18 U/L Alkaline Phosphatase 86 U/L Troponin I 0.034 ng/ml Total Protein 6.7 gm/dl Albumin 2.7 gm/dl Lipase 71 U/L Urine Color YELLOW Urine Appearance CLEAR Urine pH 6.5 Urine Specific [place] > 1.045 Urine Protein NEG Urine Glucose (UA) NEG Urine Ketones NEG Urine Occult Blood NEG Urine Nitrite NEG Urine Bilirubin NEG Urine Urobilinogen NEG Urine Leukocyte Esterase NEG Assessment and Plan 80 y/o M Hx CAD, HTN, non-malignant pleural effusion, metastatic colon CA to the liver. Pt had been medically managed for an SBO 06/25. A few weeks prior he had been diagnosed with colon CA on a colonoscopy. He is currently receiving oral chemotherapy. He developed abdominal pain, nausea and vomiting earlier in the day and presented for evaluation. A CT revealed an SBO related to a distinct mass at the ileocecal junction. This was not as prominent on a previous CT. SBO/Colon CA/Ileocecal mass - appears due to enlarging ileocecal mass. Will treat with NGT, IVF, bowel rest, pain control. Surgery is consulted as this may not resolve medically considering his underlying malignancy. -GI consulted to see about possible stent placement but high risk for bowel perforation -Consult Oncology to see about whether to continue chemo while inpatient and plans for moving forward with treatment vs Palliative/Hospice Care -may end up needing colectomy with ileostomy -continue IVFs -continue PPI IV CAD w/ h/o acute AR - no evidence of ACS. Stable for many years, follows with Dr. Franklin of [facility] [place] Cardiology -hold simvastatin while NPO -not on ASA presumably due to chemo and recent procedures? 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
[2016-09-10] MEDS ORDERED: DEXTROSE 50% 50 ML SYR IV PRN (12:30)
[2016-09-10] MEDS ORDERED: GLUCOSE 10 TABS/TUBE PO PRN (12:30)
[2016-09-10] MEDS ORDERED: GLUCAGON FOR INJ 1 MG VIAL SQ PRN (12:30)
[2016-09-10] MEDS ORDERED: GLUCOSE 40% GEL 15 GM TUBE PO PRN (12:30)
--- NOTE | 2016-09-10 13:06 | Gastrointestinal Consultation ---
Gastrointestinal Consultation Date of Consultation: Sep 10, 2016 Attending Physician: Anjel Consulting Physician: Vincenzo Reason for Consultation: SBO History of Present Illness Patient is a 80 year old male w/ PMH significant for dyslipidemia, GERD, T2DM, hypothyroidism, BRENDAN and colon cancer. He was evaluated by [facility] for BRENDAN in April who had arranged EGD/Colonoscopy 05/22/16. EGD was unremarkable and colonoscopy adenocarcinoma in the sigmoid colon, circumferential, nearly obstructing. Presented yesterday w/ N/V found to have SBO. GI was consulted for management. Pt was seen and evaluated. Nachoiy at bedside. NG is in place. CT ABD 09/09/16: Evidence of small bowel obstruction with a mass at the ileocecal valve. This is most concerning for primary colonic neoplasm. No evidence of lymphadenopathy or metastatic disease in the abdomen or pelvis. Moderate right and small left pleural effusions likely with atelectasis. Bilateral nephrolithiasis. Bladder calculi. Past Medical/Surgical History Medical Problems: (1) Dehydration Status: Acute (2) Small bowel obstruction Status: Acute (3) Vomiting Status: Acute Past Medical History: dyslipidemia, GERD, T2DM, hypothyroidism, BRENDAN, colon CA, diverticulitis, heart disease, kidney stones Past Surgical History: colonoscopy, appendectomy, tonsillectomy Family History FHx: heart disease FHx: kidney disease/stones Social History Smoking Status: Former Smoker Alcohol Use: none Drug Use: none Marital Status: Housing Status: lives with significant other Occupation Status: retired Allergies Coded Allergies: Clarithromycin (Verified Allergy, Severe, "MAJOR RXN" ?, 09/09/16) Penicillins (Verified Allergy, Severe, "MAJOR RXN" ?, 09/09/16) Sulfa Antibiotics (Verified Allergy, Severe, "SULFA DRUGS": "MAJOR RXN"?, 09/09/16) Cephalosporins (Verified Allergy, Unknown, ?, 09/09/16) Diltiazem (Verified Allergy, Unknown, FLUSHING, 09/09/16) Morphine (Verified Allergy, Unknown, N/V, 09/09/16) Streptokinase (Verified Allergy, Unknown, ?, 09/09/16) Sulfonylureas (Verified Allergy, Unknown, RASH, 09/09/16) Codeine (Verified Adverse Reaction, Mild, NAUSEA / VOMITING, 09/09/16) Current Medications Home Meds and Scripts Medications Dose Route/Sig Max Daily Dose Days Date Category Dose Instructions Vitamin D 63191 Unit (Ergocalciferol) 50,000 Unit Cap 50,000 Unit PO 2XWK 06/24/16 Reported THURSDAY & THURSDAY Micro-K Ext Rel (Potassium Chloride) 10 Meq Capcr 10 Meq PO DAILY 06/24/16 Reported Lasix (Furosemide) 20 Mg Tab 20 Mg PO DAILY 06/24/16 Reported Glucophage (Metformin Hcl) 500 Mg Tab 500 Mg PO QAM WITH BREAKFAST 06/18/16 Rx Mylanta Gas Minis (Simethicone) 41.667 Mg Chw 311 Mg PO DIRECTED 06/12/16 Reported Flomax (Tamsulosin Hcl) 0.4 Mg Cap 0.4 Mg PO DAILY 06/12/16 Reported Prilosec (Omeprazole) 20 Mg Cap 1 Cap PO DAILY 30 09/24/15 Rx Levothyroxine Sodium 25 Mcg Tab 50 Mcg PO DAILY 08/09/14 Reported Iron (Ferrous Sulfate) 325 Mg Tab 325 Mg PO DAILY 06/03/13 Reported Nitrostat (Nitroglycerin) 0.4 Mg Tab 0.4 Mg UT PRN 11/06/08 Reported Zocor (Simvastatin) 40 Mg Tab 40 Mg PO QPM 11/06/08 Reported Review of Systems Constitutional: No fever Respiratory: No shortness of breath Cardiac: No chest pain Abdomen: + pain, + nausea Physical Exam Date Time Temp Pulse Resp B/P (MAP) Pulse Ox O2 Delivery O2 Flow Rate FiO2 09/10/16 08:15 Room Air 09/10/16 07:52 36.7 61 14 96/46 (63) 92 Room Air 09/10/16 07:50 92 Room Air 09/09/16 23:54 Room Air 09/09/16 22:40 36.8 58 16 106/67 (80) 96 Room Air 09/09/16 21:30 36.9 72 18 95/60 Room Air 09/09/16 21:30 Room Air 09/09/16 21:29 36.9 72 18 95/60 (72) 96 Room Air 09/09/16 20:59 66 17 99/56 95 09/09/16 20:10 67 14 109/63 94 Room Air 09/09/16 19:20 71 17 115/64 95 Room Air 09/09/16 17:28 37.0 82 16 105/69 95 Room Air General Appearance: + mild distress, + thin, + pertinent finding (ill appearing ) Eyes: PERRL Neck: supple Abdomen: soft Neurologic/Psych: alert, normal mood/affect, oriented x 3 Skin: normal color, warm/dry Laboratory Results Last 24 Hours Test 09/09/16 17:55 09/09/16 22:00 White Blood Count 7.43 K/uL Red Blood Count 4.35 M/uL Hemoglobin 12.1 g/dL Hematocrit 37.5 % Mean Corpuscular Volume 86.2 fL Mean Corpuscular Hemoglobin 27.8 pg Mean Corpuscular Hemoglobin Concent 32.3 g/dl Platelet Count 321 K/uL Mean Platelet Volume 9.7 fL Neutrophils (%) (Auto) 73.5 % Lymphocytes (%) (Auto) 20.6 % Monocytes (%) (Auto) 5.4 % Eosinophils (%) (Auto) 0.3 % Basophils (%) (Auto) 0.1 % Neutrophils # (Auto) 5.46 K/uL Lymphocytes # (Auto) 1.53 K/uL Monocytes # (Auto) 0.40 K/uL Eosinophils # (Auto) 0.02 K/uL Basophils # (Auto) 0.01 K/uL RDW Standard Deviation 78.1 fL RDW Coefficient of Variation 25.2 % Immature Granulocyte % (Auto) 0.1 % Immature Granulocyte # (Auto) 0.01 K/uL Anisocytosis PRESENT Ovalocytes 1+ Stomatocytes 1+ Prothrombin Time 11.5 SECONDS Prothromb Time International Ratio 1.1 Sodium Level 139 mmol/L Potassium Level 4.2 mmol/L Chloride Level 102 mmol/L Carbon Dioxide Level 30 mmol/L Anion Gap 7.0 mmol/L Blood Urea Nitrogen 17 mg/dl Creatinine 1.00 mg/dl Est Creatinine Clear Calc Drug Dose 45.1 ml/min Estimated GFR () 81.4 Estimated GFR (Non- 70.3 BUN/Creatinine Ratio 17.0 Random Glucose 122 mg/dl Calcium Level 8.3 mg/dl Total Bilirubin 0.8 mg/dl Direct Bilirubin 0.2 mg/dl Aspartate Amino Transf (AST/SGOT) 26 U/L Alanine Aminotransferase (ALT/SGPT) 18 U/L Alkaline Phosphatase 86 U/L Troponin I 0.034 ng/ml Total Protein 6.7 gm/dl Albumin 2.7 gm/dl Lipase 71 U/L Urine Color YELLOW Urine Appearance CLEAR Urine pH 6.5 Urine Specific [place] > 1.045 Urine Protein NEG Urine Glucose (UA) NEG Urine Ketones NEG Urine Occult Blood NEG Urine Nitrite NEG Urine Bilirubin NEG Urine Urobilinogen NEG Urine Leukocyte Esterase NEG Impression Patient is a 80 year old male presenting with a SBO - Colonoscopy in May/ adenocarcinoma in the sigmoid colon, circumferential, nearly obstructing with inability to safely advance scope past this location. GI was consulted for SBO and possible stent placement. Colonoscopy and CT reviewed - unable to stent the sigmoid mass, making advancing scope to small bowel unlikely Plan SBO management per surgery, continue with surgery as planned. GI to sign off - please call with any questions or concerns. I saw the patient and reviewed his medical history. The patient does have a history of colon cancer with an obstructing mass in the rectosigmoid region that we were unable to pass with any endoscopes several months ago. Given this we are unlikely to be able to reach his suspected ileocecal mass with a regular colonoscope to provide placement of a colonic stent. At this time, the patient may be best managed with an ileostomy if deemed needed by general surgery
[2016-09-10] MEDS ORDERED: NURSING VERBAL MED ORDER ONE (13:30)
--- NOTE | 2016-09-10 15:25 | Surgery Progress Note ---
Surgery Progress Note Date of Service Sep 10, 2016. Subjective Family at bedside. No further pain or nausea. Less distended with ng decompression but high output through ng tube. No flatus or bowel movement yet. Objective Vital Signs: Date Time Temp Pulse Resp B/P (MAP) Pulse Ox O2 Delivery O2 Flow Rate FiO2 09/10/16 08:15 Room Air 09/10/16 07:52 36.7 61 14 96/46 (63) 92 Room Air 09/10/16 07:50 92 Room Air 09/09/16 23:54 Room Air 09/09/16 22:40 36.8 58 16 106/67 (80) 96 Room Air 09/09/16 21:30 36.9 72 18 95/60 Room Air 09/09/16 21:30 Room Air 09/09/16 21:29 36.9 72 18 95/60 (72) 96 Room Air 09/09/16 20:59 66 17 99/56 95 09/09/16 20:10 67 14 109/63 94 Room Air 09/09/16 19:20 71 17 115/64 95 Room Air 09/09/16 17:28 37.0 82 16 105/69 95 Room Air General Appearance: + cachetic Respiratory/Chest: normal breath sounds, no accessory muscle use Cardiovascular: regular rate, rhythm Abdomen: non tender, soft, + abnormal bowel sounds (hypoactive), + distended ( less than yesterday) Laboratory Results: Results Past 24 Hours Test 09/09/16 17:55 09/09/16 22:00 Range/Units White Blood Count 7.43 4.8-10.8 K/uL Red Blood Count 4.35 4.7-6.1 M/uL Hemoglobin 12.1 14.0-18.0 g/dL Hematocrit 37.5 42-52 % Mean Corpuscular Volume 86.2 80-100 fL Mean Corpuscular Hemoglobin 27.8 25-34 pg Mean Corpuscular Hemoglobin Concent 32.3 32-36 g/dl Platelet Count 321 130-400 K/uL Mean Platelet Volume 9.7 7.4-10.4 fL Neutrophils (%) (Auto) 73.5 % Lymphocytes (%) (Auto) 20.6 % Monocytes (%) (Auto) 5.4 % Eosinophils (%) (Auto) 0.3 % Basophils (%) (Auto) 0.1 % Neutrophils # (Auto) 5.46 1.4-6.5 K/uL Lymphocytes # (Auto) 1.53 1.2-3.4 K/uL Monocytes # (Auto) 0.40 0.11-0.59 K/uL Eosinophils # (Auto) 0.02 0-0.5 K/uL Basophils # (Auto) 0.01 0-0.2 K/uL RDW Standard Deviation 78.1 36.4-46.3 fL RDW Coefficient of Variation 25.2 11.5-14.5 % Immature Granulocyte % (Auto) 0.1 % Immature Granulocyte # (Auto) 0.01 0.00-0.02 K/uL Anisocytosis PRESENT Ovalocytes 1+ Stomatocytes 1+ Prothrombin Time 11.5 9.0-12.0 SECONDS Prothromb Time International Ratio 1.1 0.9-1.1 Sodium Level 139 136-145 mmol/L Potassium Level 4.2 3.5-5.1 mmol/L Chloride Level 102 98-107 mmol/L Carbon Dioxide Level 30 21-32 mmol/L Anion Gap 7.0 3-11 mmol/L Blood Urea Nitrogen 17 7-18 mg/dl Creatinine 1.00 0.60-1.40 mg/dl Est Creatinine Clear Calc Drug Dose 45.1 ml/min Estimated GFR () 81.4 Estimated GFR (Non- 70.3 BUN/Creatinine Ratio 17.0 10-20 Random Glucose 122 70-99 mg/dl Calcium Level 8.3 8.5-10.1 mg/dl Total Bilirubin 0.8 0.2-1 mg/dl Direct Bilirubin 0.2 0-0.2 mg/dl Aspartate Amino Transf (AST/SGOT) 26 15-37 U/L Alanine Aminotransferase (ALT/SGPT) 18 12-78 U/L Alkaline Phosphatase 86 45-117 U/L Troponin I 0.034 0-0.045 ng/ml Total Protein 6.7 6.4-8.2 gm/dl Albumin 2.7 3.4-5.0 gm/dl Lipase 71 73-393 U/L Urine Color YELLOW Urine Appearance CLEAR CLEAR Urine pH 6.5 4.5-7.5 Urine Specific [place] > 1.045 1.000-1.030 Urine Protein NEG NEG Urine Glucose (UA) NEG NEG Urine Ketones NEG NEG Urine Occult Blood NEG NEG Urine Nitrite NEG NEG Urine Bilirubin NEG NEG Urine Urobilinogen NEG NEG Urine Leukocyte Esterase NEG NEG Assessment & Plan Imaging from [facility] reviewed. He has a known near obstructing left sided colon cancer which could not be traversed. CT at [facility] also showed a 6 cm inflammatory/ neoplastic process in the terminal ileum/ cecal area which is again seen on CT here at [facility] and likely the source of his obstruction. Explained that with two synchronous likely cancers in his colon, he is only a candidate for a diverting loop ileostomy. This would allow him to be able to eat again and hopefully to resume his xeloda therapy. Explained that his bowel obstruction is unlikely to resolve with conservative measures given the mass now seen on CT (not seen on June CT scan). Dr. Bautista could potentially do his diverting ileostomy tomorrow if he is agreeable. Reviewed with family that this is stage 4 colon cancer and palliation is the main goal. To this extent, an ileostomy would allow him to hopefully avoid further obstructive episodes. He is agreeable - will tentatively add him on the schedule for Dr. Bautista tomorrow. Multiple questions answered.
[2016-09-10 15:33] VITALS: BP 115/59; PULSE 67; O2SAT 90
[2016-09-10 15:41] VITALS: BP 117/66; PULSE 55; TEMP 36.6; O2SAT 91
--- NOTE | 2016-09-10 15:56 | Anesthesiology Progress Note ---
Anesthesia Progress Note Date of Service Sep 10, 2016. Progress Notes The patient is an 80 y/o male scheduled for a colostomy tomorrow due an ileocecal mass. He has a PMH of recently diagnosed colon CA with possible mets , he is on chemotherapy, pleural effusions, OR, CAD, HTN, dyslipidemia, GERD, arthritis, NIDDM, hypothyroidism, anemia, BPH, and nephrolithiasis. The patient 's EKG shows sinus rhythm with R BBB, old inferior infarct, and possible lateral infarct. His electrolytes were normal and hgb is 12.1. INR was 1.1. On exam the patient has an NG tube in place. He has good neck extension with a MP 2 view. He is missing all of his top teeth. Heart is RRR. Lungs were clear with decreased breath sounds bilaterally. His carotids were negative for bruits. The patient is an ASA 4. He was consented to general anesthesia with the possibility of invasive monitoring. He will remain NPO until the surgery.
[2016-09-10 16:00] VITALS: O2SAT 91
[2016-09-10] MEDS ORDERED: INSULIN ASPART 100 UNITS/ML 3 ML PEN SC SCH (17:15)
[2016-09-10] MEDS: INSULIN ASPART 100 UNITS/ML 3 ML PEN SC SCH (18:00)
[2016-09-10 22:45] VITALS: BP 103/61; PULSE 68; TEMP 36.8; O2SAT 95
[2016-09-11] VITALS (7 sets, daily range): BP systolic 106–118; BP diastolic 54–66; PULSE 65–75; TEMP 36.3–36.8; O2SAT 94–100
[2016-09-11] MEDS: INSULIN ASPART 100 UNITS/ML 3 ML PEN SC SCH ×4 (06:00→18:00)
[2016-09-11 07:38] LABS: BASO % 0.2 %; BASO ABS # 0.01 K/uL (0-0.2); EOS % 0.2 %; HEMATOCRIT 34.4 % (42-52); LYMPH % 20.8 %; LYMPH ABS # 1.15 K/uL (1.2-3.4); MEAN CELL VOLUME 87.3 fL (80-100); MEAN CORPUSCULAR HEMOGLOBIN 27.2 pg (25-34); MEAN CORPUSCULAR HGB CONC 31.1 g/dl (32-36); MEAN PLATELET VOLUME 9.5 fL (7.4-10.4); NEUT % 70.8 %; PLATELET COUNT 302 K/uL (130-400); RED BLOOD COUNT 3.94 M/uL (4.7-6.1); WHITE BLOOD COUNT 5.52 K/uL (4.8-10.8)
[2016-09-11 08:15] LABS: BUN/CREATININE RATIO 17.7 (10-20); CALCIUM 7.9 mg/dl (8.5-10.1); CREATININE 0.84 mg/dl (0.60-1.40); MAGNESIUM 1.3 mg/dl (1.8-2.4); POTASSIUM 3.5 mmol/L (3.5-5.1)
[2016-09-11 08:22] LABS: ANISOCYTOSIS PRESENT; COMPLETE YES; OVALOCYTES 1+
[2016-09-11] MEDS: SODIUM CHLOR 0.45% + 20MEQ KCL 1,000 ML IV SCH ×3 (09:25→22:32)
[2016-09-11] MEDS: MAGNESIUM SULFATE 1GM / D5W 1 GM in PREMIXED IN D5W 100 ML IV SCH ×2 (09:25→10:28)
[2016-09-11] MEDS: PANTOprazole INJ 40 MG in SYRINGE 0 ML IV SCH (10:34)
--- NOTE | 2016-09-11 11:13 | Hospitalist Progress Note ---
Hospitalist Progress Note Date of Service Sep 11, 2016. Subjective Pt evaluation today including: conversation w/ patient, conversation w/ family Voiding: no voiding problems Pt passing a lot of flatus, no abd pain. No CP or SOB. Is headed to surgery today for a diverting ileostomy. I discussed the case with Dr. Bautista who will be performing the surgery today. All Other Systems: Reviewed and Negative Objective Vital Signs Date Time Temp Pulse Resp B/P (MAP) Pulse Ox O2 Delivery O2 Flow Rate FiO2 09/11/16 07:24 Room Air 09/10/16 22:45 36.8 68 17 103/61 (75) 95 Room Air 09/10/16 19:52 Room Air 09/10/16 16:00 91 Room Air 09/10/16 15:41 36.6 55 18 117/66 (83) 91 Room Air 09/10/16 15:33 67 90 Physical Exam General Appearance: no apparent distress, + thin Eyes: normal inspection, sclerae normal ENT: hearing grossly normal Neck: trachea midline Respiratory/Chest: lungs clear, normal breath sounds, no respiratory distress, no accessory muscle use Cardiovascular: regular rate, rhythm, no murmur, + pertinent finding (trace pitting edema in legs to knees, +edema and shiny skin in hands) Abdomen: normal bowel sounds, non tender, soft, + pertinent finding (NGT in place to suction with scant bilious fluid draining) Extremities: non-tender, no calf tenderness Neurologic/Psychiatric: alert, normal mood/affect, oriented x 3 Skin: normal color, warm/dry, no rash, + pertinent finding (shiny skin of hands and fingers) Laboratory Results Last 24 Hours Test 09/10/16 18:12 09/10/16 23:42 09/11/16 05:54 09/11/16 07:02 Bedside Glucose 76 mg/dl 82 mg/dl 74 mg/dl White Blood Count 5.52 K/uL Red Blood Count 3.94 M/uL Hemoglobin 10.7 g/dL Hematocrit 34.4 % Mean Corpuscular Volume 87.3 fL Mean Corpuscular Hemoglobin 27.2 pg Mean Corpuscular Hemoglobin Concent 31.1 g/dl Platelet Count 302 K/uL Mean Platelet Volume 9.5 fL Neutrophils (%) (Auto) 70.8 % Lymphocytes (%) (Auto) 20.8 % Monocytes (%) (Auto) 8.0 % Eosinophils (%) (Auto) 0.2 % Basophils (%) (Auto) 0.2 % Neutrophils # (Auto) 3.91 K/uL Lymphocytes # (Auto) 1.15 K/uL Monocytes # (Auto) 0.44 K/uL Eosinophils # (Auto) 0.01 K/uL Basophils # (Auto) 0.01 K/uL RDW Standard Deviation 77.8 fL RDW Coefficient of Variation 24.6 % Immature Granulocyte % (Auto) 0.0 % Immature Granulocyte # (Auto) 0.00 K/uL Anisocytosis PRESENT Ovalocytes 1+ Sodium Level 142 mmol/L Potassium Level 3.5 mmol/L Chloride Level 106 mmol/L Carbon Dioxide Level 27 mmol/L Anion Gap 9.0 mmol/L Blood Urea Nitrogen 15 mg/dl Creatinine 0.84 mg/dl Est Creatinine Clear Calc Drug Dose 55.8 ml/min Estimated GFR () 95.2 Estimated GFR (Non- 82.1 BUN/Creatinine Ratio 17.7 Random Glucose 85 mg/dl Calcium Level 7.9 mg/dl Magnesium Level 1.3 mg/dl Assessment and Plan 80 y/o M Hx CAD, HTN, non-malignant pleural effusion, metastatic colon CA to the liver and possible lung. Pt had been medically managed for an SBO 06/25. A few weeks prior he had been diagnosed with colon CA on a colonoscopy. He is currently receiving oral chemotherapy with Xeloda. He developed abdominal pain , nausea and vomiting earlier in the day and presented for evaluation. A CT revealed an SBO related to a distinct mass at the ileocecal junction. This was not as prominent on a previous CT here but as per Surgery notes, was seen on a CT at [facility] more recently. SBO/Colon CA/Ileocecal mass - appears due to enlarging ileocecal mass. Treated with NGT, IVF, bowel rest, pain control. Surgery is consulted and as this may not resolve medically considering his underlying malignancy, decision made to take for diverting ileostomy today -GI consulted to see about possible stent placement but high risk for bowel perforation -Consult Oncology -discussed with Dr. Tolbert on phone yesterday--> holding Xeloda -continue IVFs -continue PPI IV CAD w/ h/o acute [place] - no evidence of ACS. Stable for many years, [place]. [place] [facility] [facility] -hold simvastatin while NPO -not on ASA presumably due to chemo and recent procedures? 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
[2016-09-11] MEDS ORDERED: FENTANYL CITRATE INJ 50 MCG/1 ML 2 ML VIAL ONE ×2 (11:15→12:16)
--- NOTE | 2016-09-11 11:20 | Surgery Progress Note ---
Surgery Progress Note Date of Service Sep 11, 2016. Subjective Passed flatus this AM Objective Vital Signs: Date Time Temp Pulse Resp B/P (MAP) Pulse Ox O2 Delivery O2 Flow Rate FiO2 09/11/16 07:24 Room Air 09/10/16 22:45 36.8 68 17 103/61 (75) 95 Room Air 09/10/16 19:52 Room Air 09/10/16 16:00 91 Room Air 09/10/16 15:41 36.6 55 18 117/66 (83) 91 Room Air 09/10/16 15:33 67 90 Physical Exam: nasogastric drainage (749 cc yesterday, 100 cc last shift) Abdomen: non tender, non distended, soft Laboratory Results: Results Past 24 Hours Test 09/10/16 18:12 09/10/16 23:42 09/11/16 05:54 09/11/16 07:02 Range/Units Bedside Glucose 76 82 74 70-99 mg/dl White Blood Count 5.52 4.8-10.8 K/uL Red Blood Count 3.94 4.7-6.1 M/uL Hemoglobin 10.7 14.0-18.0 g/dL Hematocrit 34.4 42-52 % Mean Corpuscular Volume 87.3 80-100 fL Mean Corpuscular Hemoglobin 27.2 25-34 pg Mean Corpuscular Hemoglobin Concent 31.1 32-36 g/dl Platelet Count 302 130-400 K/uL Mean Platelet Volume 9.5 7.4-10.4 fL Neutrophils (%) (Auto) 70.8 % Lymphocytes (%) (Auto) 20.8 % Monocytes (%) (Auto) 8.0 % Eosinophils (%) (Auto) 0.2 % Basophils (%) (Auto) 0.2 % Neutrophils # (Auto) 3.91 1.4-6.5 K/uL Lymphocytes # (Auto) 1.15 1.2-3.4 K/uL Monocytes # (Auto) 0.44 0.11-0.59 K/uL Eosinophils # (Auto) 0.01 0-0.5 K/uL Basophils # (Auto) 0.01 0-0.2 K/uL RDW Standard Deviation 77.8 36.4-46.3 fL RDW Coefficient of Variation 24.6 11.5-14.5 % Immature Granulocyte % (Auto) 0.0 % Immature Granulocyte # (Auto) 0.00 0.00-0.02 K/uL Anisocytosis PRESENT Ovalocytes 1+ Sodium Level 142 136-145 mmol/L Potassium Level 3.5 3.5-5.1 mmol/L Chloride Level 106 98-107 mmol/L Carbon Dioxide Level 27 21-32 mmol/L Anion Gap 9.0 3-11 mmol/L Blood Urea Nitrogen 15 7-18 mg/dl Creatinine 0.84 0.60-1.40 mg/dl Est Creatinine Clear Calc Drug Dose 55.8 ml/min Estimated GFR () 95.2 Estimated GFR (Non- 82.1 BUN/Creatinine Ratio 17.7 10-20 Random Glucose 85 70-99 mg/dl Calcium Level 7.9 8.5-10.1 mg/dl Magnesium Level 1.3 1.8-2.4 mg/dl Assessment & Plan 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 This is his second episode of small bowel obstruction and although he is passing gas the likelihood of recurrence is high. He would like to proceed with formation of diverting ileostomy. Explained to him the procedure and the possible complications. He has signed a consent form.
[2016-09-11] MEDS ORDERED: CLINDAMYCIN 600 MG/54 ML D5W IV ONE (11:22)
[2016-09-11] MEDS ORDERED: EpHEDrine SULFATE INJ 50 MG/ML AMP IV PRN (11:45)
[2016-09-11] MEDS ORDERED: ATROPINE SULFATE 0.1 MG/ML 5ML SYR IV PRN (11:45)
[2016-09-11] MEDS ORDERED: ONDANSETRON INJ 2 MG/ML 2 ML VIAL IV PRN (11:45)
[2016-09-11] MEDS ORDERED: PHENYLEPHRINE 100MCG/ML 5ML SYR IV PRN (11:45)
[2016-09-11] MEDS ORDERED: CLINDAMYCIN IV 900 MG in DEXTROSE 5% 100ML 100 ML IV ONE (12:00)
[2016-09-11] MEDS ORDERED: HYDROmorphone INJ 2 MG/ML SYR/VIAL ONE (12:35)
[2016-09-11] MEDS ORDERED: DEXAMETHASONE SOD INJ 4 MG/ML VIAL ONE (12:38)
[2016-09-11] MEDS ORDERED: ONDANSETRON INJ 2 MG/ML 2 ML VIAL ONE ×2 (12:38→13:25)
[2016-09-11] MEDS ORDERED: PHENYLEPHRINE 100MCG/ML 5ML SYR ONE ×2 (12:38→13:25)
[2016-09-11] MEDS ORDERED: PROPOFOL IV EMULSION 10 MG/ML 20 ML VIAL IV ONE (12:38)
[2016-09-11] MEDS ORDERED: LIDOCAINE HCL 2% 2 ML VIAL (20MG/ML) ONE (12:38)
[2016-09-11] MEDS ORDERED: ROCURONIUM BROMIDE 10 MG/ML 5 ML VIAL ONE (12:38)
[2016-09-11] MEDS ORDERED: HYDROmorphone INJ 0.5 MG/0.5 ML SYR IV PRN (13:00)
--- NOTE | 2016-09-11 13:03 | [facility] Post Operative Brief Note ---
Immediate Operative Summary Operative Date Sep 11, 2016. Pre-Operative Diagnosis Carcinoma of Rectum, Ileocecal Mass Post-Operative Diagnosis Carcinoma of Rectum, Ileocecal Mass Procedure(s) Performed Creation of Diverting Ileostomy Surgeon Dr. Bautista Locomotive Engineer Surgeon(s) ARI Huertas Estimated Blood Loss 15 cc Findings See dictation Specimens none per surgeon Drains None Anesthesia General Complication(s) None Disposition Recovery Room / PACU
[2016-09-11] MEDS ORDERED: GLYCOPYRROLATE INJ 0.2 MG/ML VIAL ONE (13:25)
[2016-09-11] MEDS ORDERED: NEOSTIGMINE METHYLSULFATE 1 MG/ML 10ML VIAL ONE (13:25)
--- NOTE | 2016-09-11 13:30 | OPERATIVE REPORT ---
DATE OF OPERATION: 09/11/2016 PREOPERATIVE DIAGNOSIS: Recurrent small-bowel obstruction. POSTOPERATIVE DIAGNOSIS: Same. PROCEDURE: Formation of ileostomy. SURGEON: Dr. Bautista. ORACLE TECHNICAL DEVELOPER: Roseanna Garner PA-C. FINDINGS: The small bowel was only very mildly dilated. The terminal portion of the ileum extended down towards the posterior aspect of the abdomen towards the retroperitoneum and towards the pelvis where there was a hard mass into which the small bowel was extending. This then extended over for a very short distance to the cecum and then over towards the medial wall of the cecum. The bowel above that was free. There was no evidence of abdominal carcinomatosis. The patient also has a rectal cancer and has evidence of multiple areas of metastasis. The decision was made to just proceed with the ileostomy. TECHNIQUE: The patient was given a general anesthetic and the area was prepped and draped in the usual sterile fashion. Vertical midline incision was made, carried down through the subcutaneous tissue to the fascia. The fascia was opened in the midline. The peritoneum was identified, incised and the abdomen was entered. All layers of the abdominal wall were opened along the length of the skin incision. Exploration was performed with findings as above. The site for the ileostomy was chosen on the abdominal wall and on the bowel wall, which was free. The small [place] of skin was removed. The subcutaneous tissue was divided and the fascia was opened in a cruciate fashion. The muscle was split and the posterior sheath and peritoneum were opened. That allowed for admission of 2 of my fingers. The loop of small bowel in the distal ileum area was brought out through that opening with ease. There was no tension. The fascia of the midline incision was closed with #1 PDS and the skin was closed with augustus. The ileostomy was then matured. A longitudinal incision was made along the outer most portion of the bowel and it was then approximated by taking a full thickness bite at the edge of the opening to the serosa near the dermis and then through the dermis. That type of suture was used in 4 quadrants to perform a [place] type incision. The remainder of the wall of the edge of the opening was approximated to the dermis in between those 4 sutures. The estimated blood loss was 15 mL. Sponge, needle, and instrument counts were correct prior to closure. The patient tolerated the surgical procedure without complication and was transferred to recovery. I attest to the content of the Intraoperative Record and any orders documented therein. Any exception s are noted below.
[2016-09-11] MEDS: HYDROmorphone INJ 2 MG/ML SYR/VIAL IV PRN ×2 (13:37→13:44)
--- NOTE | 2016-09-11 14:14 | Anesthesiology Progress Note ---
Anesthesia Post Op Note Date & Time Sep 11, 2016 at 14:14 Vital Signs Pain Intensity: 4 Vital Signs Past 12 Hours Date Time Temp Pulse Resp B/P (MAP) Pulse Ox O2 Delivery O2 Flow Rate FiO2 09/11/16 14:10 99/55 09/11/16 14:07 64 16 100 09/11/16 14:07 65 16 100 09/11/16 14:05 103/57 09/11/16 14:02 66 16 100 09/11/16 14:02 66 16 09/11/16 14:00 111/57 09/11/16 13:56 69 16 100 09/11/16 13:56 70 16 09/11/16 13:55 109/65 09/11/16 13:50 115/64 09/11/16 13:46 69 16 09/11/16 13:46 70 16 100 09/11/16 13:45 111/63 09/11/16 13:40 114/61 09/11/16 13:37 76 16 100 09/11/16 13:37 79 16 100 09/11/16 13:35 106/66 09/11/16 13:32 77 16 09/11/16 13:32 77 16 100 09/11/16 13:31 106/66 09/11/16 13:26 111/65 09/11/16 13:22 74 16 100 09/11/16 13:22 76 16 100 09/11/16 13:21 114/64 09/11/16 13:18 116/68 09/11/16 13:17 37.0 72 14 116/68 99 Mask 10 09/11/16 07:24 Room Air Notes Mental Status: alert / awake / arousable, participated in evaluation Pt Amnestic to Procedure: Yes Nausea / Vomiting: adequately controlled Pain: adequately controlled Airway Patency, RR, SpO2: stable & adequate BP & HR: stable & adequate Hydration State: stable & adequate Anesthetic Complications: no major complications apparent
--- NOTE | 2016-09-11 19:16 | Medical Consult ---
Consultation Date of Consultation: Sep 11, 2016. 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 He has pleural effusion as well and consulted with pulmonary in the past but cytology was negative for malignancy. He was started on chemotherapy with oral capecitabine. The second cycle was delayed since he had mucositis with the first cycle. He was started on second cycle with a 25% dose reduction last dose taken on day of admission 09/09/16. He is admitted for recurrent SBO. CT scan 09/09/16 showed evidence of SBO with a mass at the ileocecal valve concerning for primary colonic neoplasm but no evidence of lymphadenopathy or metastatic disease in the abdomen or pelvis, + pleural effusions and small left pleural effusion and bilateral nephrolithiasis and bladder calculi. He was evaluated by surgery and has undergone diverting ileostomy. He states that he is feeling ok. He states that pain is mild - pain scale 1. Past Medical/Surgical History Medical Problems: (1) Dehydration Status: Acute (2) Small bowel obstruction Status: Acute (3) Vomiting Status: Acute Family History FHx: heart disease FHx: kidney disease/stones noncontributory Social History Smoking Status: Former Smoker Smokeless Tobacco Use: No Drug Use: none Marital Status: Housing Status: lives with significant other Occupation Status: retired Allergies Coded Allergies: Clarithromycin (Verified Allergy, Severe, "MAJOR RXN" ?, 09/09/16) Penicillins (Verified Allergy, Severe, "MAJOR RXN" ?, 09/09/16) Sulfa Antibiotics (Verified Allergy, Severe, "SULFA DRUGS": "MAJOR RXN"?, 09/09/16) Cephalosporins (Verified Allergy, Unknown, ?, 09/09/16) Diltiazem (Verified Allergy, Unknown, FLUSHING, 09/09/16) Morphine (Verified Allergy, Unknown, N/V, 09/09/16) Streptokinase (Verified Allergy, Unknown, ?, 09/09/16) Sulfonylureas (Verified Allergy, Unknown, RASH, 09/09/16) Codeine (Verified Adverse Reaction, Mild, NAUSEA / VOMITING, 09/09/16) Current Inpatient Medications Current Inpatient Medications Medications (Trade) Dose Ordered Sig/Lenka Route Start Time Stop Time Status Last Admin Dose Admin Ioversol (Optiray 320) 111 ml UD PRN IV 09/09/16 19:00 09/13/16 18:59 Pantoprazole Sodium 40 mg/ Syringe 10 ml @ 5 mls/min DAILY@11 IV 09/10/16 11:00 10/10/16 10:59 09/11/16 10:34 5 MLS/MIN Ondansetron HCl (Zofran Inj) 4 mg Q6H PRN IV 09/09/16 20:15 10/09/16 20:14 Heparin Sodium (Porcine) (Heparin Sq 5000 Unit/0.5ml) 5,000 unit Q12H SQ 09/10/16 09:00 10/10/16 08:59 Future Hold 09/10/16 21:55 5,000 UNIT Glucose (Glucose 40% Gel) 15-30 GRAMS 15 GRAMS... UD PRN PO 09/10/16 12:30 10/10/16 12:29 Glucose (Glucose Chew Tab) 4-8 Tablets 4 Tabl... UD PRN PO 09/10/16 12:30 10/10/16 12:29 Dextrose (Dextrose 50% 50ML Syringe) 25-50ML OF 50% DW IV FOR... UD PRN IV 09/10/16 12:30 10/10/16 12:29 Glucagon (Glucagon Inj) 1 mg UD PRN SQ 09/10/16 12:30 10/10/16 12:29 Insulin Aspart (novoLOG ASPART) SLIDING SCALE If C... Q6 SC 09/10/16 18:00 10/10/16 17:14 Potassium Chloride/Sodium Chloride 1,000 ml @ 75 mls/hr [id number] IV 09/11/16 09:15 10/11/16 08:44 09/11/16 15:33 75 MLS/HR Levothyroxine Sodium 25 mcg/ Syringe 1.25 ml @ 2 mls/min DAILY@09 IV 09/12/16 09:00 10/12/16 08:59 Hydromorphone HCl (Dilaudid Inj) 0.5 mg Q2H PRN IV 09/11/16 13:00 09/25/16 12:59 09/11/16 16:42 0.5 MG Review of Systems Constitutional: + fatigue (mild), No fever, No chills, No sweats Eyes: No eye pain, No redness ENT: + problem reported (+NG tube) Respiratory: No cough, No sputum, No wheezing, No shortness of breath Cardiovascular: No chest pain, No edema, No palpitations Abdomen: + pain (mild ), + problem reported (admitted with SBO), No nausea, No vomiting Musculoskeletal: + problem reported (+arthritis) Genitourinary - Male: No hematuria, No dysuria Neurologic: No weakness, No numbness/tingling Psychiatric: No depression symptoms, No anxiety Integumentary: No rash, No itch Physical Exam Date Time Temp Pulse Resp B/P (MAP) Pulse Ox O2 Delivery O2 Flow Rate FiO2 09/11/16 17:20 36.3 66 18 116/54 (74) 98 Nasal Cannula 2.0 09/11/16 16:25 36.6 75 18 118/65 (82) 98 Nasal Cannula 3.0 09/11/16 16:15 Nasal Cannula 2.0 09/11/16 15:26 36.7 68 18 108/64 (79) 100 Nasal Cannula 3.0 09/11/16 14:51 36.5 65 18 114/65 (81) 100 Nasal Cannula 3.0 09/11/16 14:20 98 Nasal Cannula 3.0 09/11/16 14:20 36.8 72 16 116/66 (83) 98 Nasal Cannula 3.0 09/11/16 14:13 37.0 09/11/16 14:10 99/55 09/11/16 14:07 64 16 100 09/11/16 14:07 65 16 100 09/11/16 14:05 103/57 09/11/16 14:02 66 16 100 09/11/16 14:02 66 16 09/11/16 14:00 111/57 09/11/16 13:56 69 16 100 09/11/16 13:56 70 16 09/11/16 13:55 109/65 09/11/16 13:50 115/64 09/11/16 13:46 69 16 09/11/16 13:46 70 16 100 09/11/16 13:45 111/63 09/11/16 13:40 114/61 09/11/16 13:37 76 16 100 09/11/16 13:37 79 16 100 09/11/16 13:35 106/66 09/11/16 13:32 77 16 09/11/16 13:32 77 16 100 09/11/16 13:31 106/66 09/11/16 13:26 111/65 09/11/16 13:22 74 16 100 09/11/16 13:22 76 16 100 09/11/16 13:21 114/64 09/11/16 13:18 116/68 09/11/16 13:17 37.0 72 14 116/68 99 Mask 10 09/11/16 07:24 Room Air 09/10/16 22:45 36.8 68 17 103/61 (75) 95 Room Air 09/10/16 19:52 Room Air General Appearance: no apparent distress, + thin Head: normocephalic, atraumatic Eyes: sclerae normal, + pertinent finding (no pallor) ENT: + pertinent finding (+NG tube ) Neck: supple, no adenopathy, no JVD Respiratory/Chest: chest non-tender (decreased BS at bases), no respiratory distress Cardiovascular: regular rate, rhythm, no edema Abdomen/GI: non tender, + distended, + pertinent finding (+ileostomy) Extremities/Musculoskelatal: no calf tenderness, non-tender, + pertinent finding (+SCDs) Neurologic/Psych: alert, normal mood/affect, oriented x 3 Laboratory Results Last 24 Hours Test 09/10/16 23:42 09/11/16 05:54 09/11/16 07:02 09/11/16 13:42 Bedside Glucose 82 mg/dl 74 mg/dl 120 mg/dl White Blood Count 5.52 K/uL Red Blood Count 3.94 M/uL Hemoglobin 10.7 g/dL Hematocrit 34.4 % Mean Corpuscular Volume 87.3 fL Mean Corpuscular Hemoglobin 27.2 pg Mean Corpuscular Hemoglobin Concent 31.1 g/dl Platelet Count 302 K/uL Mean Platelet Volume 9.5 fL Neutrophils (%) (Auto) 70.8 % Lymphocytes (%) (Auto) 20.8 % Monocytes (%) (Auto) 8.0 % Eosinophils (%) (Auto) 0.2 % Basophils (%) (Auto) 0.2 % Neutrophils # (Auto) 3.91 K/uL Lymphocytes # (Auto) 1.15 K/uL Monocytes # (Auto) 0.44 K/uL Eosinophils # (Auto) 0.01 K/uL Basophils # (Auto) 0.01 K/uL RDW Standard Deviation 77.8 fL RDW Coefficient of Variation 24.6 % Immature Granulocyte % (Auto) 0.0 % Immature Granulocyte # (Auto) 0.00 K/uL Anisocytosis PRESENT Ovalocytes 1+ Sodium Level 142 mmol/L Potassium Level 3.5 mmol/L Chloride Level 106 mmol/L Carbon Dioxide Level 27 mmol/L Anion Gap 9.0 mmol/L Blood Urea Nitrogen 15 mg/dl Creatinine 0.84 mg/dl Est Creatinine Clear Calc Drug Dose 55.8 ml/min Estimated GFR () 95.2 Estimated GFR (Non- 82.1 BUN/Creatinine Ratio 17.7 Random Glucose 85 mg/dl Calcium Level 7.9 mg/dl Magnesium Level 1.3 mg/dl Test 09/11/16 18:22 Bedside Glucose 147 mg/dl Assessment & Plan 80 year old male with clinical stage IV colon cancer on chemotherapy with oral capecitabine (xeloda) admitted with recurrent SBO. S/P diverting ileostomy. His current CT Scan does not show metastasis in the abdomen. Continue to hold chemotherapy,- he was on cycle 2 of treatment. We will need to be held until he is able to take oral meds and have oral intake and recovered from surgery. Support provided and their questions were answered Follow up in the office upon discharge. thank you for consult
[2016-09-12] MEDS: INSULIN ASPART 100 UNITS/ML 3 ML PEN SC SCH ×5 (06:00→21:00)
[2016-09-12 06:56] VITALS: BP 106/58; PULSE 60; TEMP 36.6; O2SAT 95
--- NOTE | 2016-09-12 07:09 | Surgery Progress Note ---
Surgery Progress Note Date of Service Sep 12, 2016. Subjective Post OP Day: 1 + bowel movement (Minimal ostomy output), No pain controlled (having mild), No nausea, No vomiting Objective Vital Signs: Date Time Temp Pulse Resp B/P (MAP) Pulse Ox O2 Delivery O2 Flow Rate FiO2 09/12/16 06:56 36.6 60 16 106/58 (74) 95 Room Air 09/12/16 00:07 Room Air 09/11/16 23:04 36.6 68 16 109/61 (77) 94 Room Air 09/11/16 19:19 36.7 70 18 106/61 (76) 97 Nasal Cannula 2.0 09/11/16 17:20 36.3 66 18 116/54 (74) 98 Nasal Cannula 2.0 09/11/16 16:25 36.6 75 18 118/65 (82) 98 Nasal Cannula 3.0 09/11/16 16:15 Nasal Cannula 2.0 09/11/16 15:26 36.7 68 18 108/64 (79) 100 Nasal Cannula 3.0 09/11/16 14:51 36.5 65 18 114/65 (81) 100 Nasal Cannula 3.0 09/11/16 14:20 98 Nasal Cannula 3.0 09/11/16 14:20 36.8 72 16 116/66 (83) 98 Nasal Cannula 3.0 09/11/16 14:13 37.0 09/11/16 14:10 99/55 09/11/16 14:07 64 16 100 09/11/16 14:07 65 16 100 09/11/16 14:05 103/57 09/11/16 14:02 66 16 100 09/11/16 14:02 66 16 09/11/16 14:00 111/57 09/11/16 13:56 69 16 100 09/11/16 13:56 70 16 09/11/16 13:55 109/65 09/11/16 13:50 115/64 09/11/16 13:46 69 16 09/11/16 13:46 70 16 100 09/11/16 13:45 111/63 09/11/16 13:40 114/61 09/11/16 13:37 76 16 100 09/11/16 13:37 79 16 100 09/11/16 13:35 106/66 09/11/16 13:32 77 16 09/11/16 13:32 77 16 100 09/11/16 13:31 106/66 09/11/16 13:26 111/65 09/11/16 13:22 74 16 100 09/11/16 13:22 76 16 100 09/11/16 13:21 114/64 09/11/16 13:18 116/68 09/11/16 13:17 37.0 72 14 116/68 99 Mask 10 09/11/16 07:24 Room Air Abdomen: non distended, + abnormal bowel sounds (few) Incision(s): dry, no erythema, no drainage Laboratory Results: Results Past 24 Hours Test 09/11/16 13:42 09/11/16 18:22 09/11/16 23:53 09/12/16 04:44 Range/Units Bedside Glucose 120 147 148 70-99 mg/dl Assessment & Plan S/P formation of ileostomy Beginning to have ileostomy output very little Can clamp NGT and remove later if no nausea OOB Ambulate
[2016-09-12 07:28] LABS: HEMATOCRIT 31.5 % (42-52); IG% 0.2 %; LYMPH % 24.3 %; LYMPH ABS # 1.13 K/uL (1.2-3.4); MEAN CELL VOLUME 85.8 fL (80-100); MEAN CORPUSCULAR HEMOGLOBIN 28.1 pg (25-34); MEAN CORPUSCULAR HGB CONC 32.7 g/dl (32-36); MEAN PLATELET VOLUME 9.4 fL (7.4-10.4); NEUT % 63.5 %; PLATELET COUNT 314 K/uL (130-400); RED BLOOD COUNT 3.67 M/uL (4.7-6.1); WHITE BLOOD COUNT 4.65 K/uL (4.8-10.8)
[2016-09-12 08:07] LABS: ANISOCYTOSIS PRESENT; COMPLETE YES; OVALOCYTES 1+; POIKILOCYTOSIS PRESENT
[2016-09-12 08:11] LABS: BUN/CREATININE RATIO 16.3 (10-20); CREATININE 0.94 mg/dl (0.60-1.40); MAGNESIUM 1.7 mg/dl (1.8-2.4); POTASSIUM 4.3 mmol/L (3.5-5.1)
[2016-09-12] MEDS ORDERED: LEVOTHYROXINE SODIUM INJ 25 MCG in SYRINGE 0 ML IV SCH (09:00)
[2016-09-12] MEDS: PANTOprazole INJ 40 MG in SYRINGE 0 ML IV SCH (11:12)
[2016-09-12] MEDS: SODIUM CHLOR 0.45% + 20MEQ KCL 1,000 ML IV SCH ×2 (11:42→19:45)
[2016-09-12] MEDS ORDERED: MAGNESIUM SULFATE 1GM / D5W 1 GM in PREMIXED IN D5W 100 ML IV ONE (12:30)
--- NOTE | 2016-09-12 13:45 | Anesthesiology Progress Note ---
Anesthesia Post Op Note Date & Time Sep 12, 2016 at 13:45 Vital Signs Pain Intensity: 0.0 Vital Signs Past 12 Hours Date Time Temp Pulse Resp B/P (MAP) Pulse Ox O2 Delivery O2 Flow Rate FiO2 09/12/16 08:19 Room Air 09/12/16 06:56 36.6 60 16 106/58 (74) 95 Room Air Notes Mental Status: alert / awake / arousable, participated in evaluation Pt Amnestic to Procedure: Yes Nausea / Vomiting: adequately controlled Pain: adequately controlled Airway Patency, RR, SpO2: stable & adequate BP & HR: stable & adequate Hydration State: stable & adequate Anesthetic Complications: no major complications apparent
[2016-09-12 15:01] VITALS: BP 117/68; PULSE 53; TEMP 36.5; O2SAT 96
--- NOTE | 2016-09-12 16:11 | Hospitalist Progress Note ---
Hospitalist Progress Note Date of Service Sep 12, 2016. Subjective Pt evaluation today including: conversation w/ patient, conversation w/ family Voiding: requires PRN straight cath (and some hematuria since then, only put out scant amount on most recent try) Pt feeling good, had some blood clots with small passage of urine today, bladder scan for 330 mL but no urge to go. Had NGT removed and has had some sips of water and Jello so far. No CP or SOB All Other Systems: Reviewed and Negative Objective Vital Signs Date Time Temp Pulse Resp B/P (MAP) Pulse Ox O2 Delivery O2 Flow Rate FiO2 09/12/16 15:01 36.5 53 16 117/68 (84) 96 Room Air 09/12/16 08:19 Room Air 09/12/16 06:56 36.6 60 16 106/58 (74) 95 Room Air 09/12/16 00:07 Room Air 09/11/16 23:04 36.6 68 16 109/61 (77) 94 Room Air 09/11/16 19:19 36.7 70 18 106/61 (76) 97 Nasal Cannula 2.0 09/11/16 17:20 36.3 66 18 116/54 (74) 98 Nasal Cannula 2.0 09/11/16 16:25 36.6 75 18 118/65 (82) 98 Nasal Cannula 3.0 09/11/16 16:15 Nasal Cannula 2.0 Physical Exam General Appearance: no apparent distress, + thin Eyes: normal inspection, sclerae normal ENT: hearing grossly normal Neck: trachea midline Respiratory/Chest: lungs clear, normal breath sounds, no respiratory distress, no accessory muscle use Cardiovascular: regular rate, rhythm, no gallop, no murmur, + pertinent finding (1+ pitting edema legs bilat) Abdomen: normal bowel sounds, soft, + tenderness (minimal around incision site without guarding; ileostomy in place with moderate amount of green liquid output ) Extremities: non-tender Neurologic/Psychiatric: alert, normal mood/affect Skin: normal color, warm/dry Laboratory Results Last 24 Hours Test 09/11/16 18:22 09/11/16 23:53 09/12/16 06:00 09/12/16 07:07 Bedside Glucose 147 mg/dl 148 mg/dl 115 mg/dl White Blood Count 4.65 K/uL Red Blood Count 3.67 M/uL Hemoglobin 10.3 g/dL Hematocrit 31.5 % Mean Corpuscular Volume 85.8 fL Mean Corpuscular Hemoglobin 28.1 pg Mean Corpuscular Hemoglobin Concent 32.7 g/dl Platelet Count 314 K/uL Mean Platelet Volume 9.4 fL Neutrophils (%) (Auto) 63.5 % Lymphocytes (%) (Auto) 24.3 % Monocytes (%) (Auto) 12.0 % Eosinophils (%) (Auto) 0.0 % Basophils (%) (Auto) 0.0 % Neutrophils # (Auto) 2.95 K/uL Lymphocytes # (Auto) 1.13 K/uL Monocytes # (Auto) 0.56 K/uL Eosinophils # (Auto) 0.00 K/uL Basophils # (Auto) 0.00 K/uL RDW Standard Deviation 74.7 fL RDW Coefficient of Variation 24.5 % Immature Granulocyte % (Auto) 0.2 % Immature Granulocyte # (Auto) 0.01 K/uL Poikilocytosis PRESENT Anisocytosis PRESENT Ovalocytes 1+ Sodium Level 139 mmol/L Potassium Level 4.3 mmol/L Chloride Level 105 mmol/L Carbon Dioxide Level 28 mmol/L Anion Gap 6.0 mmol/L Blood Urea Nitrogen 15 mg/dl Creatinine 0.94 mg/dl Est Creatinine Clear Calc Drug Dose 49.9 ml/min Estimated GFR () 87.8 Estimated GFR (Non- 75.7 BUN/Creatinine Ratio 16.3 Random Glucose 131 mg/dl Calcium Level 8.0 mg/dl Magnesium Level 1.7 mg/dl Total Bilirubin 0.4 mg/dl Direct Bilirubin 0.2 mg/dl Aspartate Amino Transf (AST/SGOT) 19 U/L Alanine Aminotransferase (ALT/SGPT) 11 U/L Alkaline Phosphatase 62 U/L Total Protein 5.4 gm/dl Albumin 1.9 gm/dl Test 09/12/16 11:43 Bedside Glucose 127 mg/dl Assessment and Plan 80 y/o M Hx CAD, HTN, non-malignant pleural effusion, metastatic colon CA to the liver and possible lung. Pt had been medically managed for an SBO 06/25. A few weeks prior he had been diagnosed with colon CA on a colonoscopy. He is currently receiving oral chemotherapy with Xeloda. He developed abdominal pain , nausea and vomiting earlier in the day and presented for evaluation. A CT revealed an SBO related to a distinct mass at the ileocecal junction. This was not as prominent on a previous CT here but as per Surgery notes, was seen on a CT at [facility] more recently. SBO/Colon CA/Ileocecal mass - appears due to enlarging ileocecal mass. Treated with NGT, IVF, bowel rest, pain control. GI consulted to see about possible stent placement but high risk for bowel perforation. Surgery is consulted and as this may not resolve medically considering his underlying malignancy, decision made to take for diverting ileostomy which was performed on 09/11 Consult Oncology -discussed with Dr. Tolbert--> holding Xeloda and will restart after recovered from ileostomy and if functional status good enough-f/u as outpatient -NGT removed and adv diet to clears today -continue IVFs until taking adequate po -continue PPI but change to po -pain control as needed Urinary retention, Hematuria, BPH-had FLomax on hold for a couple days while NPO may be contributing. -if retaining > 400 mL next bladder scan, will place [facility] -restart Flomax tonight now that taking po CAD w/ h/o acute OK - no evidence of ACS. Stable for many years, follows with Dr. Franklin of [facility] Cardiology -restart simvastatin now that is taking po -not on ASA presumably due to chemo and recent procedures? 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
[2016-09-12] MEDS ORDERED: NURSING VERBAL MED ORDER ONE (18:15)
--- NOTE | 2016-09-12 20:40 | Hematology/Oncology Prog Note ---
Hematology/Onc Progress Note Date of Service Sep 12, 2016. Diagnoses colon cancer admitted with SBO s/p diverting ileostomy Subjective Patient seen and examined Feels improved today. no cough or shortness of breath or chest pain NGT is out and he is drinking clear liquid and ate jello No nausea or vomiting He has some incisional soreness but states that pain is well controlled He also said he is ambulating and was up and out of bed most of the day He said had blood in urine today Vital Signs Vital Signs Past 12 Hours Date Time Temp Pulse Resp B/P (MAP) Pulse Ox O2 Delivery O2 Flow Rate FiO2 09/12/16 15:01 36.5 53 16 117/68 (84) 96 Room Air Physical Exam Head: normocephalic Lungs: Auscuitation: breath sounds normal, no wheezing, no rhonchi Cardiovascular: Heart Auscultation: RRR, normal S1, normal S2, no murmurs Abdomen: Inspection & Palpation: soft, pertinent finding (+ileostomy with bilious drainage, dressing C/D/I) Extremities: pertinent finding (mild edema bilateral nontender) Laboratory Results Past 24 Hours Test 09/11/16 23:53 09/12/16 06:00 09/12/16 07:07 09/12/16 11:43 Range/Units Bedside Glucose 148 115 127 70-99 mg/dl White Blood Count 4.65 4.8-10.8 K/uL Red Blood Count 3.67 4.7-6.1 M/uL Hemoglobin 10.3 14.0-18.0 g/dL Hematocrit 31.5 42-52 % Mean Corpuscular Volume 85.8 80-100 fL Mean Corpuscular Hemoglobin 28.1 25-34 pg Mean Corpuscular Hemoglobin Concent 32.7 32-36 g/dl Platelet Count 314 130-400 K/uL Mean Platelet Volume 9.4 7.4-10.4 fL Neutrophils (%) (Auto) 63.5 % Lymphocytes (%) (Auto) 24.3 % Monocytes (%) (Auto) 12.0 % Eosinophils (%) (Auto) 0.0 % Basophils (%) (Auto) 0.0 % Neutrophils # (Auto) 2.95 1.4-6.5 K/uL Lymphocytes # (Auto) 1.13 1.2-3.4 K/uL Monocytes # (Auto) 0.56 0.11-0.59 K/uL Eosinophils # (Auto) 0.00 0-0.5 K/uL Basophils # (Auto) 0.00 0-0.2 K/uL RDW Standard Deviation 74.7 36.4-46.3 fL RDW Coefficient of Variation 24.5 11.5-14.5 % Immature Granulocyte % (Auto) 0.2 % Immature Granulocyte # (Auto) 0.01 0.00-0.02 K/uL Poikilocytosis PRESENT Anisocytosis PRESENT Ovalocytes 1+ Sodium Level 139 136-145 mmol/L Potassium Level 4.3 3.5-5.1 mmol/L Chloride Level 105 98-107 mmol/L Carbon Dioxide Level 28 21-32 mmol/L Anion Gap 6.0 3-11 mmol/L Blood Urea Nitrogen 15 7-18 mg/dl Creatinine 0.94 0.60-1.40 mg/dl Est Creatinine Clear Calc Drug Dose 49.9 ml/min Estimated GFR () 87.8 Estimated GFR (Non- 75.7 BUN/Creatinine Ratio 16.3 10-20 Random Glucose 131 70-99 mg/dl Calcium Level 8.0 8.5-10.1 mg/dl Magnesium Level 1.7 1.8-2.4 mg/dl Total Bilirubin 0.4 0.2-1 mg/dl Direct Bilirubin 0.2 0-0.2 mg/dl Aspartate Amino Transf (AST/SGOT) 19 15-37 U/L Alanine Aminotransferase (ALT/SGPT) 11 12-78 U/L Alkaline Phosphatase 62 45-117 U/L Total Protein 5.4 6.4-8.2 gm/dl Albumin 1.9 3.4-5.0 gm/dl Assessment & Plan 80 year old male with metastatic colon cancer admitted with SBO s/p diverting ileostomy. -Continue supportive care. Patient aware to continue hold chemo. Follow up in the office upon discharge. Support provided and his questions were answered.
[2016-09-12] MEDS: TAMSULOSIN HCL 0.4 MG CAP PO SCH (21:30)
[2016-09-12] MEDS: SIMVASTATIN 40 MG TAB PO SCH (21:31)
[2016-09-12 23:16] VITALS: BP 136/68; PULSE 51; TEMP 36.2; O2SAT 96
[2016-09-13] MEDS ORDERED: LIDOCAINE HCL 2% JELLY 30 ML TUBE EXT ONE (00:08)
[2016-09-13] MEDS ORDERED: LIDOCAINE HCL 2% JELLY 30 ML TUBE EXT SCH (00:15)
[2016-09-13] MEDS: SODIUM CHLOR 0.45% + 20MEQ KCL 1,000 ML IV SCH ×2 (03:54→12:09)
[2016-09-13] MEDS: LEVOTHYROXINE 50 MCG TAB PO SCH (05:47)
[2016-09-13 06:23] LABS: EOS % 0.7 %; HEMATOCRIT 32.4 % (42-52); IG% 0.2 %; LYMPH % 26.8 %; MEAN CELL VOLUME 86.9 fL (80-100); MEAN CORPUSCULAR HEMOGLOBIN 27.9 pg (25-34); MEAN CORPUSCULAR HGB CONC 32.1 g/dl (32-36); MEAN PLATELET VOLUME 9.3 fL (7.4-10.4); MONO % 10.3 %; PLATELET COUNT 308 K/uL (130-400); RED BLOOD COUNT 3.73 M/uL (4.7-6.1); WHITE BLOOD COUNT 4.47 K/uL (4.8-10.8)
[2016-09-13 06:48] LABS: BUN/CREATININE RATIO 14.9 (10-20); CALCIUM 7.8 mg/dl (8.5-10.1); CREATININE 0.82 mg/dl (0.60-1.40); MAGNESIUM 1.9 mg/dl (1.8-2.4); POTASSIUM 4.5 mmol/L (3.5-5.1)
[2016-09-13 06:57] LABS: ANISOCYTOSIS PRESENT; COMPLETE YES; OVALOCYTES 1+
[2016-09-13 06:58] VITALS: BP 98/60; PULSE 52; TEMP 36.3; O2SAT 92
[2016-09-13] MEDS: INSULIN ASPART 100 UNITS/ML 3 ML PEN SC SCH ×4 (08:00→20:53)
[2016-09-13] MEDS: PANTOprazole SOD 40 MG TAB PO SCH (09:16)
--- NOTE | 2016-09-13 14:38 | Surgery Progress Note ---
Surgery Progress Note Date of Service Sep 13, 2016. Subjective doing ok. tolerating clears. pain control adequate. Objective Vital Signs: Date Time Temp Pulse Resp B/P (MAP) Pulse Ox O2 Delivery O2 Flow Rate FiO2 09/13/16 08:16 Room Air 09/13/16 06:58 36.3 52 16 98/60 (73) 92 Room Air 09/13/16 00:48 Room Air 09/12/16 23:16 36.2 51 12 136/68 (90) 96 Room Air 09/12/16 19:40 Room Air 09/12/16 15:01 36.5 53 16 117/68 (84) 96 Room Air General Appearance: no apparent distress Abdomen: soft Incision(s): clean, dry, intact, findings (stoma functioning) Laboratory Results: Results Past 24 Hours Test 09/12/16 18:08 09/12/16 21:05 09/13/16 05:48 09/13/16 07:55 Range/Units Bedside Glucose 125 104 109 70-99 mg/dl White Blood Count 4.47 4.8-10.8 K/uL Red Blood Count 3.73 4.7-6.1 M/uL Hemoglobin 10.4 14.0-18.0 g/dL Hematocrit 32.4 42-52 % Mean Corpuscular Volume 86.9 80-100 fL Mean Corpuscular Hemoglobin 27.9 25-34 pg Mean Corpuscular Hemoglobin Concent 32.1 32-36 g/dl Platelet Count 308 130-400 K/uL Mean Platelet Volume 9.3 7.4-10.4 fL Neutrophils (%) (Auto) 62.0 % Lymphocytes (%) (Auto) 26.8 % Monocytes (%) (Auto) 10.3 % Eosinophils (%) (Auto) 0.7 % Basophils (%) (Auto) 0.0 % Neutrophils # (Auto) 2.77 1.4-6.5 K/uL Lymphocytes # (Auto) 1.20 1.2-3.4 K/uL Monocytes # (Auto) 0.46 0.11-0.59 K/uL Eosinophils # (Auto) 0.03 0-0.5 K/uL Basophils # (Auto) 0.00 0-0.2 K/uL RDW Standard Deviation 76.0 36.4-46.3 fL RDW Coefficient of Variation 24.8 11.5-14.5 % Immature Granulocyte % (Auto) 0.2 % Immature Granulocyte # (Auto) 0.01 0.00-0.02 K/uL Anisocytosis PRESENT Ovalocytes 1+ Sodium Level 138 136-145 mmol/L Potassium Level 4.5 3.5-5.1 mmol/L Chloride Level 104 98-107 mmol/L Carbon Dioxide Level 30 21-32 mmol/L Anion Gap 4.0 3-11 mmol/L Blood Urea Nitrogen 12 7-18 mg/dl Creatinine 0.82 0.60-1.40 mg/dl Est Creatinine Clear Calc Drug Dose 57.2 ml/min Estimated GFR () 96.1 Estimated GFR (Non- 82.9 BUN/Creatinine Ratio 14.9 10-20 Random Glucose 98 70-99 mg/dl Calcium Level 7.8 8.5-10.1 mg/dl Magnesium Level 1.9 1.8-2.4 mg/dl Assessment & Plan doing well post op so far pain control adequate stoma functioning- pt hates clears. can increase to full liquids. increase activity no acute post op problems. discussed care with family at bedside.
[2016-09-13 15:11] VITALS: BP 114/59; PULSE 56; TEMP 36.1; O2SAT 96
[2016-09-13] MEDS: TAMSULOSIN HCL 0.4 MG CAP PO SCH (20:54)
[2016-09-13] MEDS: SIMVASTATIN 40 MG TAB PO SCH (20:54)
[2016-09-13 22:55] VITALS: BP 101/61; PULSE 55; TEMP 36.7; O2SAT 96
[2016-09-14] MEDS: LEVOTHYROXINE 50 MCG TAB PO SCH (06:12)
--- NOTE | 2016-09-14 07:12 | Hospitalist Progress Note ---
Hospitalist Progress Note Date of Service Sep 13, 2016. Subjective Pt evaluation today including: conversation w/ patient Voiding: nguyen catheter in place Pt feels good, his ostomy has a large amount of output and is actually leaking around his ostomy site. No N/V, is ila full liquids. All Other Systems: Reviewed and Negative Objective Vital Signs Date Time Temp Pulse Resp B/P (MAP) Pulse Ox O2 Delivery O2 Flow Rate FiO2 09/13/16 15:55 Room Air 09/13/16 15:11 36.1 56 12 114/59 (77) 96 Room Air 09/13/16 08:16 Room Air 09/13/16 06:58 36.3 52 16 98/60 (73) 92 Room Air 09/13/16 00:48 Room Air 09/12/16 23:16 36.2 51 12 136/68 (90) 96 Room Air 09/12/16 19:40 Room Air Physical Exam General Appearance: no apparent distress, + thin Eyes: normal inspection, sclerae normal ENT: hearing grossly normal Neck: trachea midline Respiratory/Chest: lungs clear, normal breath sounds, no respiratory distress, no accessory muscle use Cardiovascular: regular rate, rhythm, no edema, no gallop, no murmur Abdomen: normal bowel sounds, non tender, soft, + pertinent finding (ostomy in place with large amount green liquid in bag and leaking) Extremities: non-tender, normal inspection, no pedal edema, no calf tenderness Neurologic/Psychiatric: alert, normal mood/affect Skin: normal color, warm/dry, no rash Laboratory Results Last 24 Hours Test 09/12/16 21:05 09/13/16 05:48 09/13/16 07:55 09/13/16 11:51 Bedside Glucose 104 mg/dl 109 mg/dl 145 mg/dl White Blood Count 4.47 K/uL Red Blood Count 3.73 M/uL Hemoglobin 10.4 g/dL Hematocrit 32.4 % Mean Corpuscular Volume 86.9 fL Mean Corpuscular Hemoglobin 27.9 pg Mean Corpuscular Hemoglobin Concent 32.1 g/dl Platelet Count 308 K/uL Mean Platelet Volume 9.3 fL Neutrophils (%) (Auto) 62.0 % Lymphocytes (%) (Auto) 26.8 % Monocytes (%) (Auto) 10.3 % Eosinophils (%) (Auto) 0.7 % Basophils (%) (Auto) 0.0 % Neutrophils # (Auto) 2.77 K/uL Lymphocytes # (Auto) 1.20 K/uL Monocytes # (Auto) 0.46 K/uL Eosinophils # (Auto) 0.03 K/uL Basophils # (Auto) 0.00 K/uL RDW Standard Deviation 76.0 fL RDW Coefficient of Variation 24.8 % Immature Granulocyte % (Auto) 0.2 % Immature Granulocyte # (Auto) 0.01 K/uL Anisocytosis PRESENT Ovalocytes 1+ Sodium Level 138 mmol/L Potassium Level 4.5 mmol/L Chloride Level 104 mmol/L Carbon Dioxide Level 30 mmol/L Anion Gap 4.0 mmol/L Blood Urea Nitrogen 12 mg/dl Creatinine 0.82 mg/dl Est Creatinine Clear Calc Drug Dose 57.2 ml/min Estimated GFR () 96.1 Estimated GFR (Non- 82.9 BUN/Creatinine Ratio 14.9 Random Glucose 98 mg/dl Calcium Level 7.8 mg/dl Magnesium Level 1.9 mg/dl Test 09/13/16 16:54 Bedside Glucose 136 mg/dl Assessment and Plan 80 y/o M Hx CAD, HTN, non-malignant pleural effusion, metastatic colon CA to the liver and possible lung. Pt had been medically managed for an SBO 06/25. A few weeks prior he had been diagnosed with colon CA on a colonoscopy. He is currently receiving oral chemotherapy with Xeloda. He developed abdominal pain , nausea and vomiting earlier in the day and presented for evaluation. A CT revealed an SBO related to a distinct mass at the ileocecal junction. This was not as prominent on a previous CT here but as per Surgery notes, was seen on a CT at [facility] more recently. SBO/Colon CA/Ileocecal mass - appears due to enlarging ileocecal mass. Treated with NGT, IVF, bowel rest, pain control. GI consulted to see about possible stent placement but high risk for bowel perforation. Surgery is consulted and as this may not resolve medically considering his underlying malignancy, decision made to take for diverting ileostomy which was performed on 09/11-having excellent recovery post-op Consult Oncology -discussed with Dr. Tolbert--> holding Xeloda and will restart after recovered from ileostomy and if functional status good enough-f/u as outpatient -continue to advance diet as ila -discontinue IVFs -continue PPI -pain control as needed Urinary retention, Hematuria, BPH-had FLomax on hold for a couple days while NPO may be contributing, but has since been restarted. Making excellent UOP now. -continue Nguyen and have voiding trial perhaps tomorrow -continue Flomax CAD w/ h/o acute CA - no evidence of ACS. Stable for many years, follows with Dr. Franklin of [facility] [place] Cardiology -cont simvastatin -not on ASA presumably due to chemo and recent procedures? 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
[2016-09-14 07:18] VITALS: BP 115/63; PULSE 56; TEMP 36.5; O2SAT 95
[2016-09-14 08:00] LABS: EOS % 0.6 %; HEMATOCRIT 37.9 % (42-52); IG% 0.2 %; LYMPH % 31.5 %; LYMPH ABS # 1.96 K/uL (1.2-3.4); MEAN CELL VOLUME 86.5 fL (80-100); MEAN CORPUSCULAR HEMOGLOBIN 26.9 pg (25-34); MEAN CORPUSCULAR HGB CONC 31.1 g/dl (32-36); MONO % 8.2 %; NEUT % 59.5 %; PLATELET COUNT 335 K/uL (130-400); RED BLOOD COUNT 4.38 M/uL (4.7-6.1); WHITE BLOOD COUNT 6.23 K/uL (4.8-10.8)
[2016-09-14] MEDS: INSULIN ASPART 100 UNITS/ML 3 ML PEN SC SCH ×4 (08:00→21:00)
[2016-09-14 08:23] LABS: ANISOCYTOSIS PRESENT; COMPLETE YES; ECHINOCYTES 1+; OVALOCYTES 2+
[2016-09-14 08:27] LABS: BUN/CREATININE RATIO 7.5 (10-20); CALCIUM 8.4 mg/dl (8.5-10.1); CREATININE 0.89 mg/dl (0.60-1.40); MAGNESIUM 1.7 mg/dl (1.8-2.4); POTASSIUM 4.6 mmol/L (3.5-5.1)
[2016-09-14] MEDS: PANTOprazole SOD 40 MG TAB PO SCH (09:20)
--- NOTE | 2016-09-14 09:25 | Surgery Progress Note ---
Surgery Progress Note Date of Service Sep 14, 2016. Subjective looks good. sitting out of bed eating. no complaints. pain controlled. no n/v. Objective Vital Signs: Date Time Temp Pulse Resp B/P (MAP) Pulse Ox O2 Delivery O2 Flow Rate FiO2 09/14/16 08:38 Room Air 09/14/16 07:18 36.5 56 17 115/63 (80) 95 Room Air 09/14/16 00:05 Room Air 09/13/16 22:55 36.7 55 16 101/61 (74) 96 Room Air 09/13/16 15:55 Room Air 09/13/16 15:11 36.1 56 12 114/59 (77) 96 Room Air General Appearance: no apparent distress Respiratory/Chest: no respiratory distress, no accessory muscle use Abdomen: soft, + pertinent finding (stoma functioning.) Laboratory Results: Results Past 24 Hours Test 09/13/16 11:51 09/13/16 16:54 09/13/16 20:46 09/14/16 07:47 Range/Units Bedside Glucose 145 136 156 70-99 mg/dl White Blood Count 6.23 4.8-10.8 K/uL Red Blood Count 4.38 4.7-6.1 M/uL Hemoglobin 11.8 14.0-18.0 g/dL Hematocrit 37.9 42-52 % Mean Corpuscular Volume 86.5 80-100 fL Mean Corpuscular Hemoglobin 26.9 25-34 pg Mean Corpuscular Hemoglobin Concent 31.1 32-36 g/dl Platelet Count 335 130-400 K/uL Mean Platelet Volume 9.0 7.4-10.4 fL Neutrophils (%) (Auto) 59.5 % Lymphocytes (%) (Auto) 31.5 % Monocytes (%) (Auto) 8.2 % Eosinophils (%) (Auto) 0.6 % Basophils (%) (Auto) 0.0 % Neutrophils # (Auto) 3.71 1.4-6.5 K/uL Lymphocytes # (Auto) 1.96 1.2-3.4 K/uL Monocytes # (Auto) 0.51 0.11-0.59 K/uL Eosinophils # (Auto) 0.04 0-0.5 K/uL Basophils # (Auto) 0.00 0-0.2 K/uL RDW Standard Deviation 76.0 36.4-46.3 fL RDW Coefficient of Variation 25.0 11.5-14.5 % Immature Granulocyte % (Auto) 0.2 % Immature Granulocyte # (Auto) 0.01 0.00-0.02 K/uL Anisocytosis PRESENT Ovalocytes 2+ Echinocytes 1+ Sodium Level 136 136-145 mmol/L Potassium Level 4.6 3.5-5.1 mmol/L Chloride Level 104 98-107 mmol/L Carbon Dioxide Level 29 21-32 mmol/L Anion Gap 3.0 3-11 mmol/L Blood Urea Nitrogen 7 7-18 mg/dl Creatinine 0.89 0.60-1.40 mg/dl Est Creatinine Clear Calc Drug Dose 52.7 ml/min Estimated GFR () 92.9 Estimated GFR (Non- 80.2 BUN/Creatinine Ratio 7.5 10-20 Random Glucose 118 70-99 mg/dl Calcium Level 8.4 8.5-10.1 mg/dl Magnesium Level 1.7 1.8-2.4 mg/dl Test 09/14/16 08:03 Range/Units Bedside Glucose 119 70-99 mg/dl Assessment & Plan 09/14/16 continues to do well will advance diet currently no surgical issues. 09/13/16 doing well post op so far pain control adequate stoma functioning- pt hates clears. can increase to full liquids. increase activity no acute post op problems. discussed care with family at bedside. doing well post op so far pain control adequate stoma functioning- pt hates clears. can increase to full liquids. increase activity no acute post op problems. discussed care with family at bedside.
[2016-09-14] MEDS ORDERED: MAGNESIUM SULFATE 1GM / D5W 1 GM in PREMIXED IN D5W 100 ML IV ONE (09:30)
[2016-09-14 15:00] VITALS: BP 115/62; PULSE 58; TEMP 36.5; O2SAT 95
--- NOTE | 2016-09-14 17:23 | Hospitalist Progress Note ---
Hospitalist Progress Note Date of Service Sep 14, 2016. Subjective Pt evaluation today including: conversation w/ patient, conversation w/ family , physical exam, conversation w/ software security consultant (Surgeon) Voiding: barber catheter in place Pt feeling great, ate two breakfasts and lunch today, no N/V. He is passing plenty of stool into ostomy bag. Denies CP or SOB. no other concerns. His just got admitted and is in the room next to him. He is anxious for discharge tomorrow. He has been out of bed and ambulating, doing well. All Other Systems: Reviewed and Negative Objective Vital Signs Date Time Temp Pulse Resp B/P (MAP) Pulse Ox O2 Delivery O2 Flow Rate FiO2 09/14/16 15:00 36.5 58 16 115/62 (79) 95 Room Air 09/14/16 08:38 Room Air 09/14/16 07:18 36.5 56 17 115/63 (80) 95 Room Air 09/14/16 00:05 Room Air 09/13/16 22:55 36.7 55 16 101/61 (74) 96 Room Air Physical Exam General Appearance: no apparent distress, + thin Eyes: normal inspection, sclerae normal ENT: hearing grossly normal Neck: trachea midline Respiratory/Chest: lungs clear, normal breath sounds, no respiratory distress, no accessory muscle use Cardiovascular: regular rate, rhythm, no edema, no gallop, no murmur Abdomen: normal bowel sounds, non tender, soft, + pertinent finding (ostomy bag in place with liquid and some solid green stool, stoma beefy red; Barber in place with clear yellow urine) Extremities: normal inspection, no calf tenderness, + pertinent finding (hands with shiny skin, some joint deformities) Neurologic/Psychiatric: alert, normal mood/affect, oriented x 3 Skin: normal color, warm/dry, no rash Laboratory Results Last 24 Hours Test 09/13/16 20:46 09/14/16 07:47 09/14/16 08:03 09/14/16 11:56 Bedside Glucose 156 mg/dl 119 mg/dl 164 mg/dl White Blood Count 6.23 K/uL Red Blood Count 4.38 M/uL Hemoglobin 11.8 g/dL Hematocrit 37.9 % Mean Corpuscular Volume 86.5 fL Mean Corpuscular Hemoglobin 26.9 pg Mean Corpuscular Hemoglobin Concent 31.1 g/dl Platelet Count 335 K/uL Mean Platelet Volume 9.0 fL Neutrophils (%) (Auto) 59.5 % Lymphocytes (%) (Auto) 31.5 % Monocytes (%) (Auto) 8.2 % Eosinophils (%) (Auto) 0.6 % Basophils (%) (Auto) 0.0 % Neutrophils # (Auto) 3.71 K/uL Lymphocytes # (Auto) 1.96 K/uL Monocytes # (Auto) 0.51 K/uL Eosinophils # (Auto) 0.04 K/uL Basophils # (Auto) 0.00 K/uL RDW Standard Deviation 76.0 fL RDW Coefficient of Variation 25.0 % Immature Granulocyte % (Auto) 0.2 % Immature Granulocyte # (Auto) 0.01 K/uL Anisocytosis PRESENT Ovalocytes 2+ Echinocytes 1+ Sodium Level 136 mmol/L Potassium Level 4.6 mmol/L Chloride Level 104 mmol/L Carbon Dioxide Level 29 mmol/L Anion Gap 3.0 mmol/L Blood Urea Nitrogen 7 mg/dl Creatinine 0.89 mg/dl Est Creatinine Clear Calc Drug Dose 52.7 ml/min Estimated GFR () 92.9 Estimated GFR (Non- 80.2 BUN/Creatinine Ratio 7.5 Random Glucose 118 mg/dl Calcium Level 8.4 mg/dl Magnesium Level 1.7 mg/dl Assessment and Plan 80 y/o M Hx CAD, HTN, non-malignant pleural effusion, metastatic colon CA to the liver and possible lung. Pt had been medically managed for an SBO 06/25. A few weeks prior he had been diagnosed with colon CA on a colonoscopy. He is currently receiving oral chemotherapy with Xeloda. He developed abdominal pain , nausea and vomiting earlier in the day and presented for evaluation. A CT revealed an SBO related to a distinct mass at the ileocecal junction. This was not as prominent on a previous CT here but as per Surgery notes, was seen on a CT at [facility] more recently. SBO/Colon CA/Ileocecal mass - appears due to enlarging ileocecal mass. Treated with NGT, IVF, bowel rest, pain control. GI consulted to see about possible stent placement but high risk for bowel perforation. Surgery was consulted and as this may not resolve medically considering his underlying malignancy, decision made to take for diverting ileostomy which was performed on 8/3- continues to have excellent recovery post-op and is now tolerating regular diet Consult Oncology -discussed with Dr. Tolbert--> holding Xeloda and will restart after recovered from ileostomy and if functional status good enough-f/u as outpatient -will be ready for discharge likely tomorrow -needs Home Health for ostomy care and teaching -continue PPI -not requiring any pain meds -f/u with Surgery in office in 1-2 weeks-Dr. Bautista Urinary retention, Hematuria, BPH-had Flomax on hold for a couple days while NPO may be contributing, but has since been restarted. Making excellent UOP now. Hematuria completely resolved -continue Barber and have voiding trial tomorrow -continue Flomax CAD w/ h/o acute [place] - no evidence of ACS. Stable for many years, follows with Dr. Franklin of [facility] [place] Cardiology -cont simvastatin -not on ASA presumably due to chemo and recent procedures? 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
[2016-09-14] MEDS: TAMSULOSIN HCL 0.4 MG CAP PO SCH (21:08)
[2016-09-14] MEDS: SIMVASTATIN 40 MG TAB PO SCH (21:08)
[2016-09-14 23:00] VITALS: BP 103/54; PULSE 60; TEMP 36.6; O2SAT 95
[2016-09-15] MEDS: LEVOTHYROXINE 50 MCG TAB PO SCH (05:31)
[2016-09-15 06:47] LABS: EOS % 0.8 %; HEMATOCRIT 34.6 % (42-52); IG% 0.2 %; LYMPH % 20.9 %; LYMPH ABS # 1.28 K/uL (1.2-3.4); MEAN CELL VOLUME 86.1 fL (80-100); MEAN CORPUSCULAR HEMOGLOBIN 27.6 pg (25-34); MEAN CORPUSCULAR HGB CONC 32.1 g/dl (32-36); MEAN PLATELET VOLUME 9.1 fL (7.4-10.4); MONO % 8.8 %; NEUT % 69.3 %; PLATELET COUNT 302 K/uL (130-400); RED BLOOD COUNT 4.02 M/uL (4.7-6.1); WHITE BLOOD COUNT 6.11 K/uL (4.8-10.8)
[2016-09-15 06:55] VITALS: BP 108/66; PULSE 62; TEMP 36.5; O2SAT 95
[2016-09-15 07:30] LABS: BUN/CREATININE RATIO 6.5 (10-20); CALCIUM 7.9 mg/dl (8.5-10.1); CREATININE 0.89 mg/dl (0.60-1.40); MAGNESIUM 1.8 mg/dl (1.8-2.4); POTASSIUM 4.2 mmol/L (3.5-5.1)
[2016-09-15 07:41] LABS: ANISOCYTOSIS PRESENT; COMPLETE YES; OVALOCYTES 1+; POIKILOCYTOSIS PRESENT
[2016-09-15] MEDS: INSULIN ASPART 100 UNITS/ML 3 ML PEN SC SCH ×4 (08:00→21:00)
--- NOTE | 2016-09-15 08:33 | Surgery Progress Note ---
Surgery Progress Note Date of Service Sep 15, 2016. Subjective Post OP Day: 4 + feeling well, + bowel movement, + flatus, + diet (regular diet), No nausea, No vomiting Objective Vital Signs: Date Time Temp Pulse Resp B/P (MAP) Pulse Ox O2 Delivery O2 Flow Rate FiO2 09/15/16 06:55 36.5 62 18 108/66 (80) 95 Room Air 09/14/16 23:30 Room Air 09/14/16 23:00 36.6 60 16 103/54 (70) 95 Room Air 09/14/16 16:00 Room Air 09/14/16 15:00 36.5 58 16 115/62 (79) 95 Room Air 09/14/16 08:38 Room Air General Appearance: no apparent distress, + thin Head: normocephalic, atraumatic Neck: trachea midline Respiratory/Chest: no respiratory distress, no accessory muscle use Abdomen: non distended, soft, + pertinent finding (ileostomy functioning) Incision(s): clean, dry, intact, no erythema, no drainage, findings (augustus present) Laboratory Results: Results Past 24 Hours Test 09/14/16 11:56 09/14/16 20:39 09/15/16 06:30 Range/Units Bedside Glucose 164 153 70-99 mg/dl White Blood Count 6.11 4.8-10.8 K/uL Red Blood Count 4.02 4.7-6.1 M/uL Hemoglobin 11.1 14.0-18.0 g/dL Hematocrit 34.6 42-52 % Mean Corpuscular Volume 86.1 80-100 fL Mean Corpuscular Hemoglobin 27.6 25-34 pg Mean Corpuscular Hemoglobin Concent 32.1 32-36 g/dl Platelet Count 302 130-400 K/uL Mean Platelet Volume 9.1 7.4-10.4 fL Neutrophils (%) (Auto) 69.3 % Lymphocytes (%) (Auto) 20.9 % Monocytes (%) (Auto) 8.8 % Eosinophils (%) (Auto) 0.8 % Basophils (%) (Auto) 0.0 % Neutrophils # (Auto) 4.23 1.4-6.5 K/uL Lymphocytes # (Auto) 1.28 1.2-3.4 K/uL Monocytes # (Auto) 0.54 0.11-0.59 K/uL Eosinophils # (Auto) 0.05 0-0.5 K/uL Basophils # (Auto) 0.00 0-0.2 K/uL RDW Standard Deviation 77.4 36.4-46.3 fL RDW Coefficient of Variation 25.0 11.5-14.5 % Immature Granulocyte % (Auto) 0.2 % Immature Granulocyte # (Auto) 0.01 0.00-0.02 K/uL Poikilocytosis PRESENT Anisocytosis PRESENT Ovalocytes 1+ Sodium Level 138 136-145 mmol/L Potassium Level 4.2 3.5-5.1 mmol/L Chloride Level 105 98-107 mmol/L Carbon Dioxide Level 27 21-32 mmol/L Anion Gap 6.0 3-11 mmol/L Blood Urea Nitrogen 6 7-18 mg/dl Creatinine 0.89 0.60-1.40 mg/dl Est Creatinine Clear Calc Drug Dose 52.7 ml/min Estimated GFR () 92.9 Estimated GFR (Non- 80.2 BUN/Creatinine Ratio 6.5 10-20 Random Glucose 127 70-99 mg/dl Calcium Level 7.9 8.5-10.1 mg/dl Magnesium Level 1.8 1.8-2.4 mg/dl Assessment & Plan POD # 4 s/p Creation of diverting Ileostomy -vitals stable - Ileostomy functioning, tolerating regular diet - Minimal abdominal pain Plan: Continue Regular diet Continue Pain management as needed Continue Current medical management Dr. Bautista has seen and examined patient, agrees with above
[2016-09-15] MEDS: PANTOprazole SOD 40 MG TAB PO SCH (09:28)
[2016-09-15 15:10] VITALS: BP 97/61; PULSE 76; TEMP 36.7; O2SAT 96
--- NOTE | 2016-09-15 16:41 | Progress Note ---
Subjective Date of Service: Sep 15, 2016. Subjective Pt evaluation today including: conversation w/ patient, conversation w/ family , physical exam, review of inpatient medication list Pain: controlled PO Intake: adequate Voiding: no voiding problems discussed with family at the bedside, patient's admitted for hernia repair want to keep him here today Problem List Medical Problems: (1) Dehydration Status: Acute (2) Small bowel obstruction Status: Acute (3) Vomiting Status: Acute Review of Systems Constitutional: + weakness, + fatigue Abdomen: + pain All Other Systems: Reviewed and Negative Medications Current Inpatient Medications Medications (Trade) Dose Ordered Sig/Lenka Route Start Time Stop Time Status Last Admin Dose Admin Ondansetron HCl (Zofran Inj) 4 mg Q6H PRN IV 09/09/16 20:15 10/09/16 20:14 Heparin Sodium (Porcine) (Heparin Sq 5000 Unit/0.5ml) 5,000 unit Q12H SQ 09/10/16 09:00 10/10/16 08:59 Future Hold 09/10/16 21:55 5,000 UNIT Glucose (Glucose 40% Gel) 15-30 GRAMS 15 GRAMS... UD PRN PO 09/10/16 12:30 10/10/16 12:29 Glucose (Glucose Chew Tab) 4-8 Tablets 4 Tabl... UD PRN PO 09/10/16 12:30 10/10/16 12:29 Dextrose (Dextrose 50% 50ML Syringe) 25-50ML OF 50% DW IV FOR... UD PRN IV 09/10/16 12:30 10/10/16 12:29 Glucagon (Glucagon Inj) 1 mg UD PRN SQ 09/10/16 12:30 10/10/16 12:29 Hydromorphone HCl (Dilaudid Inj) 0.5 mg Q2H PRN IV 09/11/16 13:00 09/25/16 12:59 09/11/16 16:42 0.5 MG Levothyroxine Sodium (Synthroid Tab) 50 mcg DAILYBB PO 09/13/16 06:00 10/13/16 05:59 09/15/16 05:31 50 MCG Pantoprazole Sodium (Protonix Tab) 40 mg QAM PO 09/13/16 09:00 10/13/16 08:59 09/15/16 09:28 40 MG Simvastatin (Zocor Tab) 40 mg QPM PO 09/12/16 21:00 10/12/16 20:59 09/14/16 21:08 40 MG Tamsulosin HCl (Flomax Cap) 0.4 mg HS PO 09/12/16 21:00 10/12/16 20:59 09/14/16 21:08 0.4 MG Insulin Aspart (novoLOG ASPART) SLIDING SCALE If C... ACHS SC 09/12/16 21:00 10/12/16 20:59 Lidocaine HCl (Xylocaine Jelly 2%) 1 ml UD EXT 09/13/16 00:15 10/13/16 00:14 Objective Vital Signs Date Time Temp Pulse Resp B/P (MAP) Pulse Ox O2 Delivery O2 Flow Rate FiO2 09/15/16 15:10 36.7 76 16 97/61 (73) 96 Room Air 09/15/16 07:45 Room Air 09/15/16 06:55 36.5 62 18 108/66 (80) 95 Room Air 09/14/16 23:30 Room Air 09/14/16 23:00 36.6 60 16 103/54 (70) 95 Room Air Physical Exam General Appearance: no apparent distress, + thin ENT: normal ENT inspection, hearing grossly normal, pharynx normal Neck: supple, no adenopathy, no JVD, trachea midline Respiratory/Chest: chest non-tender, lungs clear, normal breath sounds, no respiratory distress, no accessory muscle use Cardiovascular: regular rate, rhythm, no edema, no gallop, no JVD, no murmur Abdomen: normal bowel sounds, soft, no organomegaly, + pertinent finding (good ostomy output) Extremities: normal range of motion, non-tender, normal inspection, no pedal edema, no calf tenderness, pelvis stable Neurologic/Psychiatric: bulk cooler installer II-XII nml as tested, alert, + motor weakness, + disoriented Skin: normal color, warm/dry, no rash Laboratory Results Last 24 Hours Test 09/14/16 20:39 09/15/16 06:30 09/15/16 10:12 09/15/16 11:56 Bedside Glucose 153 mg/dl 117 mg/dl 130 mg/dl White Blood Count 6.11 K/uL Red Blood Count 4.02 M/uL Hemoglobin 11.1 g/dL Hematocrit 34.6 % Mean Corpuscular Volume 86.1 fL Mean Corpuscular Hemoglobin 27.6 pg Mean Corpuscular Hemoglobin Concent 32.1 g/dl Platelet Count 302 K/uL Mean Platelet Volume 9.1 fL Neutrophils (%) (Auto) 69.3 % Lymphocytes (%) (Auto) 20.9 % Monocytes (%) (Auto) 8.8 % Eosinophils (%) (Auto) 0.8 % Basophils (%) (Auto) 0.0 % Neutrophils # (Auto) 4.23 K/uL Lymphocytes # (Auto) 1.28 K/uL Monocytes # (Auto) 0.54 K/uL Eosinophils # (Auto) 0.05 K/uL Basophils # (Auto) 0.00 K/uL RDW Standard Deviation 77.4 fL RDW Coefficient of Variation 25.0 % Immature Granulocyte % (Auto) 0.2 % Immature Granulocyte # (Auto) 0.01 K/uL Poikilocytosis PRESENT Anisocytosis PRESENT Ovalocytes 1+ Sodium Level 138 mmol/L Potassium Level 4.2 mmol/L Chloride Level 105 mmol/L Carbon Dioxide Level 27 mmol/L Anion Gap 6.0 mmol/L Blood Urea Nitrogen 6 mg/dl Creatinine 0.89 mg/dl Est Creatinine Clear Calc Drug Dose 52.7 ml/min Estimated GFR () 92.9 Estimated GFR (Non- 80.2 BUN/Creatinine Ratio 6.5 Random Glucose 127 mg/dl Calcium Level 7.9 mg/dl Magnesium Level 1.8 mg/dl Assessment and Plan 80 y/o M Hx CAD, HTN, non-malignant pleural effusion, metastatic colon CA to the liver and possible lung. Pt had been medically managed for an SBO 06/25. A few weeks prior he had been diagnosed with colon CA on a colonoscopy. He is currently receiving oral chemotherapy with Xeloda. He developed abdominal pain , nausea and vomiting earlier in the day and presented for evaluation. A CT revealed an SBO related to a distinct mass at the ileocecal junction. This was not as prominent on a previous CT here but as per Surgery notes, was seen on a CT at [facility] more recently. SBO / Colon CA / Ileocecal mass - diverting ileostomy which was performed on 09/11-continues to have excellent recovery post-op and is now tolerating regular diet excellent ostomy output Consult Oncology -discussed with Dr. Tolbert--> holding Xeloda and will restart after recovered from ileostomy and if functional status good enough-f/u as outpatient -needs Home Health for ostomy care and teaching -continue PPI -not requiring any pain meds -f/u with Surgery in office in 1-2 weeks-Dr. Bautista Urinary retention, Hematuria, BPH- Hematuria completely resolved -voiding trial today -continue Flomax CAD w/ h/o acute CT - no evidence of ACS. Stable for many years, follows with Dr. Franklin of [facility] [place] [place] Cardiology -cont simvastatin -not on ASA presumably due to chemo and recent procedures? 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
[2016-09-15] MEDS: SIMVASTATIN 40 MG TAB PO SCH (21:17)
[2016-09-15] MEDS: TAMSULOSIN HCL 0.4 MG CAP PO SCH (21:17)
[2016-09-15 22:47] VITALS: BP 102/53; PULSE 67; TEMP 36.9; O2SAT 95
[2016-09-16] MEDS: LEVOTHYROXINE 50 MCG TAB PO SCH (05:51)
[2016-09-16 07:30] VITALS: BP 91/56; PULSE 62; TEMP 36.4; O2SAT 96
[2016-09-16 07:47] VITALS: O2SAT 96
[2016-09-16] MEDS: INSULIN ASPART 100 UNITS/ML 3 ML PEN SC SCH ×4 (08:00→20:49)
[2016-09-16] MEDS: PANTOprazole SOD 40 MG TAB PO SCH (09:06)
[2016-09-16] MEDS: HEPARIN SOD 5000 UNIT/0.5 ML CARP SQ SCH ×2 (10:56→20:57)
--- NOTE | 2016-09-16 11:48 | Surgery Progress Note ---
Surgery Progress Note Date of Service Sep 16, 2016. Subjective Post OP Day: 5 Patient examined at bedside this morning. Afebrile, vitals stable overnight on room air, no acute events. Sitting up comfortably in chair reading the paper on exam. Denies pain. States it is getting easier each day to move around. Tolerating regular diet without N/V. Ostomy is functioning, air and stool in bag. Ambulating with assistance and voiding without difficulty. No complaints. Objective Vital Signs: Date Time Temp Pulse Resp B/P (MAP) Pulse Ox O2 Delivery O2 Flow Rate FiO2 09/16/16 07:47 96 Room Air 09/16/16 07:46 Room Air 09/16/16 07:30 36.4 62 16 91/56 (68) 96 Room Air 09/15/16 23:20 Room Air 09/15/16 22:47 36.9 67 18 102/53 (69) 95 Room Air 09/15/16 15:15 Room Air 09/15/16 15:10 36.7 76 16 97/61 (73) 96 Room Air General Appearance: WD/WN, no apparent distress Head: normocephalic, atraumatic Neck: supple Respiratory/Chest: lungs clear, normal breath sounds Cardiovascular: regular rate, rhythm Abdomen: non tender, non distended, soft (Ostomy pink, air and stool in bag, appliance intact without leaks.) Incision(s): clean, dry, intact (Skin augustus in place, no surrounding erythema / swelling), no erythema, no drainage Laboratory Results: Results Past 24 Hours Test 09/15/16 11:56 09/15/16 17:18 09/15/16 21:06 09/16/16 08:07 Range/Units Bedside Glucose 130 166 157 104 70-99 mg/dl Assessment & Plan POD # 5 s/p Creation of diverting Ileostomy - vitals stable - Ileostomy functioning, tolerating regular diet - Denies abdominal pain Plan: Continue regular diet Continue pain management as needed Continue current medical management Will followup as outpatient for staple removal OK to discharge from surgical prespective, D/C planning per medicine team
--- NOTE | 2016-09-16 14:45 | Progress Note ---
Subjective Date of Service: Sep 16, 2016. Subjective Pt evaluation today including: conversation w/ patient, conversation w/ family , physical exam, review of inpatient medication list Pain: no pain PO Intake: eating well Voiding: no voiding problems sitting in chair, no issues, good ostomy output plan for ostomy bag teaching this afternoon with family Problem List Medical Problems: (1) Dehydration Status: Acute (2) Small bowel obstruction Status: Acute (3) Vomiting Status: Acute Review of Systems All Other Systems: Reviewed and Negative Medications Current Inpatient Medications Medications (Trade) Dose Ordered Sig/Lenka Route Start Time Stop Time Status Last Admin Dose Admin Ondansetron HCl (Zofran Inj) 4 mg Q6H PRN IV 09/09/16 20:15 10/09/16 20:14 Heparin Sodium (Porcine) (Heparin Sq 5000 Unit/0.5ml) 5,000 unit Q12H SQ 09/10/16 09:00 10/10/16 08:59 Future hold 09/16/16 10:56 5,000 UNIT Glucose (Glucose 40% Gel) 15-30 GRAMS 15 GRAMS... UD PRN PO 09/10/16 12:30 10/10/16 12:29 Glucose (Glucose Chew Tab) 4-8 Tablets 4 Tabl... UD PRN PO 09/10/16 12:30 10/10/16 12:29 Dextrose (Dextrose 50% 50ML Syringe) 25-50ML OF 50% DW IV FOR... UD PRN IV 09/10/16 12:30 10/10/16 12:29 Glucagon (Glucagon Inj) 1 mg UD PRN SQ 09/10/16 12:30 10/10/16 12:29 Hydromorphone HCl (Dilaudid Inj) 0.5 mg Q2H PRN IV 09/11/16 13:00 09/25/16 12:59 09/11/16 16:42 0.5 MG Levothyroxine Sodium (Synthroid Tab) 50 mcg DAILYBB PO 09/13/16 06:00 10/13/16 05:59 09/16/16 05:51 50 MCG Pantoprazole Sodium (Protonix Tab) 40 mg QAM PO 09/13/16 09:00 10/13/16 08:59 09/16/16 09:06 40 MG Simvastatin (Zocor Tab) 40 mg QPM PO 09/12/16 21:00 10/12/16 20:59 09/15/16 21:17 40 MG Tamsulosin HCl (Flomax Cap) 0.4 mg HS PO 09/12/16 21:00 10/12/16 20:59 09/15/16 21:17 0.4 MG Insulin Aspart (novoLOG ASPART) SLIDING SCALE If C... ACHS SC 09/12/16 21:00 10/12/16 20:59 Lidocaine HCl (Xylocaine Jelly 2%) 1 ml UD EXT 09/13/16 00:15 10/13/16 00:14 Objective Vital Signs Date Time Temp Pulse Resp B/P (MAP) Pulse Ox O2 Delivery O2 Flow Rate FiO2 09/16/16 07:47 96 Room Air 09/16/16 07:46 Room Air 09/16/16 07:30 36.4 62 16 91/56 (68) 96 Room Air 09/15/16 23:20 Room Air 09/15/16 22:47 36.9 67 18 102/53 (69) 95 Room Air 09/15/16 15:15 Room Air 09/15/16 15:10 36.7 76 16 97/61 (73) 96 Room Air Physical Exam General Appearance: no apparent distress, + thin Eyes: normal inspection, EOMI, sclerae normal ENT: normal ENT inspection, hearing grossly normal, pharynx normal Respiratory/Chest: chest non-tender, lungs clear, normal breath sounds, no respiratory distress, no accessory muscle use Cardiovascular: regular rate, rhythm, no edema, no gallop, no JVD, no murmur Abdomen: normal bowel sounds, non tender, soft, no organomegaly, + pertinent finding (ostomy bag with brown semi formed stool, incision clean and dry) Extremities: normal range of motion, non-tender, normal inspection, no pedal edema, no calf tenderness, pelvis stable 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 Pt had been medically managed for an SBO 06/25. A few weeks prior he had been diagnosed with colon CA on a colonoscopy. He is currently receiving oral chemotherapy with Xeloda. He developed abdominal pain , nausea and vomiting earlier in the day and presented for evaluation. A CT revealed an SBO related to a distinct mass at the ileocecal junction. This was not as prominent on a previous CT here but as per Surgery notes, was seen on a CT at [facility] more recently. SBO / Colon CA / Ileocecal mass - diverting ileostomy which was performed on 09/11-continues to have excellent recovery post-op and is now tolerating regular diet excellent ostomy output, plan for teaching today for home health Consult Oncology -discussed with Dr. Tolbert--> holding Xeloda and will restart after recovered from ileostomy and if functional status good enough-f/u as outpatient -continue PPI -not requiring any pain meds -f/u with Surgery in office in 1-2 weeks-Dr. Bautista Urinary retention, Hematuria, BPH- Hematuria completely resolved -voiding well after nguyen d/c yesterday -continue Flomax CAD w/ h/o acute [place] - no evidence of ACS. Stable for many years, follows with Dr. Franklin of [facility] [place] Cardiology -cont simvastatin -not on ASA presumably due to chemo and recent procedures? 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
[2016-09-16 15:13] VITALS: BP 120/74; PULSE 67; O2SAT 96
[2016-09-16] MEDS: TAMSULOSIN HCL 0.4 MG CAP PO SCH (20:58)
[2016-09-16] MEDS: SIMVASTATIN 40 MG TAB PO SCH (20:58)
[2016-09-16 23:02] VITALS: BP 102/61; PULSE 63; TEMP 36.4; O2SAT 97
[2016-09-17] MEDS: LEVOTHYROXINE 50 MCG TAB PO SCH (05:52)
[2016-09-17 07:49] VITALS: BP 100/53; PULSE 70; TEMP 36.4; O2SAT 97
[2016-09-17 07:51] VITALS: O2SAT 97
--- NOTE | 2016-09-17 07:51 | Surgery Progress Note ---
Surgery Progress Note Date of Service Sep 17, 2016. Subjective Post OP Day: 5 + feeling well, + bowel movement (Ostomy functioning), + diet (Tolerating a regular diet), No nausea, No vomiting Objective Vital Signs: Date Time Temp Pulse Resp B/P (MAP) Pulse Ox O2 Delivery O2 Flow Rate FiO2 09/17/16 00:30 Room Air 09/16/16 23:02 36.4 63 16 102/61 (75) 97 Room Air 09/16/16 15:40 Room Air 09/16/16 15:13 67 16 120/74 (89) 96 Room Air Abdomen: normal bowel sounds, non tender, non distended Incision(s): clean, dry, intact, no erythema Laboratory Results: Results Past 24 Hours Test 09/16/16 08:07 09/16/16 12:04 09/16/16 16:43 09/16/16 20:29 Range/Units Bedside Glucose 104 125 149 143 70-99 mg/dl Assessment & Plan S/P formation of ileostomy Ostomy functioning Incision healing well Continue to ambulate
[2016-09-17] MEDS: INSULIN ASPART 100 UNITS/ML 3 ML PEN SC SCH ×4 (08:00→20:49)
[2016-09-17] MEDS: PANTOprazole SOD 40 MG TAB PO SCH (09:16)
[2016-09-17] MEDS: HEPARIN SOD 5000 UNIT/0.5 ML CARP SQ SCH ×2 (09:19→20:54)
[2016-09-17 15:20] VITALS: BP 124/73; PULSE 68; TEMP 36.3; O2SAT 96
--- NOTE | 2016-09-17 15:50 | Progress Note ---
Subjective Date of Service: Sep 17, 2016. Subjective Pt evaluation today including: conversation w/ patient, physical exam, review of inpatient medication list Pain: no pain PO Intake: eating well Voiding: no voiding problems patient practicing emptying ostomy bag on his own today with RN ambulating well in the [place] Problem List Medical Problems: (1) Dehydration Status: Acute (2) Small bowel obstruction Status: Acute (3) Vomiting Status: Acute Review of Systems All Other Systems: Reviewed and Negative Medications Current Inpatient Medications Medications (Trade) Dose Ordered Sig/Lenka Route Start Time Stop Time Status Last Admin Dose Admin Ondansetron HCl (Zofran Inj) 4 mg Q6H PRN IV 09/09/16 20:15 10/09/16 20:14 Heparin Sodium (Porcine) (Heparin Sq 5000 Unit/0.5ml) 5,000 unit Q12H SQ 09/10/16 09:00 10/10/16 08:59 Future hold 09/17/16 09:19 5,000 UNIT Glucose (Glucose 40% Gel) 15-30 GRAMS 15 GRAMS... UD PRN PO 09/10/16 12:30 10/10/16 12:29 Glucose (Glucose Chew Tab) 4-8 Tablets 4 Tabl... UD PRN PO 09/10/16 12:30 10/10/16 12:29 Dextrose (Dextrose 50% 50ML Syringe) 25-50ML OF 50% DW IV FOR... UD PRN IV 09/10/16 12:30 10/10/16 12:29 Glucagon (Glucagon Inj) 1 mg UD PRN SQ 09/10/16 12:30 10/10/16 12:29 Hydromorphone HCl (Dilaudid Inj) 0.5 mg Q2H PRN IV 09/11/16 13:00 09/25/16 12:59 09/11/16 16:42 0.5 MG Levothyroxine Sodium (Synthroid Tab) 50 mcg DAILYBB PO 09/13/16 06:00 10/13/16 05:59 09/17/16 05:52 50 MCG Pantoprazole Sodium (Protonix Tab) 40 mg QAM PO 09/13/16 09:00 10/13/16 08:59 09/17/16 09:16 40 MG Simvastatin (Zocor Tab) 40 mg QPM PO 09/12/16 21:00 10/12/16 20:59 09/16/16 20:58 40 MG Tamsulosin HCl (Flomax Cap) 0.4 mg HS PO 09/12/16 21:00 10/12/16 20:59 09/16/16 20:58 0.4 MG Insulin Aspart (novoLOG ASPART) SLIDING SCALE If C... ACHS SC 09/12/16 21:00 10/12/16 20:59 Lidocaine HCl (Xylocaine Jelly 2%) 1 ml UD EXT 09/13/16 00:15 10/13/16 00:14 Objective Vital Signs Date Time Temp Pulse Resp B/P (MAP) Pulse Ox O2 Delivery O2 Flow Rate FiO2 09/17/16 08:10 Room Air 09/17/16 07:51 97 Room Air 09/17/16 07:49 36.4 70 18 100/53 (69) 97 Room Air 09/17/16 00:30 Room Air 09/16/16 23:02 36.4 63 16 102/61 (75) 97 Room Air Physical Exam General Appearance: no apparent distress, + thin Respiratory/Chest: chest non-tender, lungs clear, normal breath sounds, no respiratory distress, no accessory muscle use Cardiovascular: regular rate, rhythm, no edema, no gallop, no JVD, no murmur Abdomen: normal bowel sounds, non tender, soft, no organomegaly, + pertinent finding (ostomy functioning well) Extremities: normal range of motion, non-tender, normal inspection, no pedal edema, no calf tenderness 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 Pt had been medically managed for an SBO 06/25. A few weeks prior he had been diagnosed with colon CA on a colonoscopy. He is currently receiving oral chemotherapy with Xeloda. He developed abdominal pain , nausea and vomiting earlier in the day and presented for evaluation. A CT revealed an SBO related to a distinct mass at the ileocecal junction. This was not as prominent on a previous CT here but as per Surgery notes, was seen on a CT at [facility] more recently. SBO / Colon CA / Ileocecal mass - diverting ileostomy which was performed on 09/11-continues to have excellent recovery post-op and is now tolerating regular diet excellent ostomy output, had teaching yesterday practicing emptying ostomy himself Consult Oncology -discussed with Dr. Tolbert--> holding Xeloda and will restart after recovered from ileostomy and if functional status good enough-f/u as outpatient -continue PPI -not requiring any pain meds -f/u with Surgery in office in 1-2 weeks-Dr. Bautista Urinary retention, Hematuria, BPH- Hematuria completely resolved -voiding well after nguyen d/c -continue Flomax CAD w/ h/o acute [place] - no evidence of ACS. Stable for many years, [place] [facility] [place] simvastatin -not on ASA presumably due to chemo and recent procedures? 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
[2016-09-17] MEDS: SIMVASTATIN 40 MG TAB PO SCH (20:49)
[2016-09-17] MEDS: TAMSULOSIN HCL 0.4 MG CAP PO SCH (20:49)
[2016-09-17 23:20] VITALS: BP 100/50; PULSE 70; TEMP 36.6; O2SAT 96
[2016-09-18] MEDS: LEVOTHYROXINE 50 MCG TAB PO SCH (05:35)
[2016-09-18 06:48] LABS: HEMATOCRIT 34.1 % (42-52); MEAN CELL VOLUME 87.4 fL (80-100); MEAN CORPUSCULAR HEMOGLOBIN 28.5 pg (25-34); MEAN CORPUSCULAR HGB CONC 32.6 g/dl (32-36); MEAN PLATELET VOLUME 9.1 fL (7.4-10.4); PLATELET COUNT 294 K/uL (130-400); WHITE BLOOD COUNT 5.82 K/uL (4.8-10.8)
[2016-09-18 07:32] VITALS: BP 105/61; PULSE 62; TEMP 36.7; O2SAT 96
[2016-09-18 07:34] VITALS: O2SAT 96
[2016-09-18] MEDS: PANTOprazole SOD 40 MG TAB PO SCH (07:55)
[2016-09-18] MEDS: INSULIN ASPART 100 UNITS/ML 3 ML PEN SC SCH ×2 (07:56→11:00)
[2016-09-18 08:00] VITALS: O2SAT 96
[2016-09-18] MEDS: HEPARIN SOD 5000 UNIT/0.5 ML CARP SQ SCH (08:02)
--- NOTE | 2016-09-18 09:33 | Discharge Instructions ---
Discharge Instructions Date of Service Sep 18, 2016. 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 Instructions / Follow-Up Instructions / Follow-Up Medications: resume prior home medications with the exception of Xeloda (chemo) Care for ileostomy: cleanse per directions, place 2 inch around stoma, then two New Image(2 3/4 inch) [place] appliance around stoma. Encourage plenty of fluids, high protein foods and frequent small meals. Change ostomy every three days or per home nursing direction FOLLOW UP - Dr. Bautista in one week, call for appointment, - Please follow up with Dr. Tolbert with oncology prior to resuming Xeloda - Dr. Riojas in two weeks, call to schedule a hospital follow up Current Hospital Diet Patient's current hospital diet: Diabetes Type 2 Diet Discharge Diet Recommended Diet: Diabetes Type 2 Diet Procedures Procedures Performed: Creation of Diverting Ileostomy Pending Studies Studies pending at discharge: no Medical Emergencies . Who to Call and When: Medical Emergencies: If at any time you feel your situation is an emergency, please call 911 immediately. . Non-Emergent Contact Non-Emergency issues call your: Surgeon Call Non-Emergent contact if: you have a fever, your pain is not controlled, wound has increased drainage, wound has increased redness, wound has increased pain, you have any medication questions . . "Provider Documentation" section prepared by Suresh Bryan. . VTE Core Measure Inpt VTE Proph given/why not?: Unfractionated heparin SQ [place] Drug Monitoring Program Search Results: no issues identified
[2016-09-18 10:41] VITALS: BP 105/61; PULSE 62; TEMP 36.7; O2SAT 96
--- NOTE | 2016-09-19 07:56 | Discharge Summary ---
Discharge Summary Date of Service Sep 18, 2016. 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 liver Problems/Secondary Diagnoses: CAD BPH with urinary obstruction Immunizations: Have You Had Influenza Vaccine: Yes Influenza Vaccine Date: Nov 03, 2012 History of Tetanus Vaccine?: UTD History of Pneumococcal: Unknown History of Hepatitis B Vaccine: Unknown Procedures: diverting ileostomy Consultations: General surgery Medication Reconciliation Continued Medications: Ergocalciferol (Vitamin D 61043 Unit) 50,000 Unit Cap 45561 UNIT PO 2XWK, CAP THURSDAY & THURSDAY Ferrous Sulfate (Iron) 325 Mg Tab 325 MG PO DAILY Furosemide (Lasix) 20 Mg Tab 20 MG PO DAILY, TAB Levothyroxine Sodium (Levothyroxine Sodium) 25 Mcg Tab 50 MCG PO DAILY, #30 Metformin Hcl (Glucophage) 500 Mg Tab 500 MG PO qam with breakfast, #30 TAB 0 Refills Nitroglycerin (Nitrostat) 0.4 Mg Tab 0.4 MG UT PRN Omeprazole (Prilosec) 20 Mg Cap 1 CAP PO DAILY for 30 Days, #30 CAP 5 Refills Potassium Chloride (Micro-K Ext Rel) 10 Meq Capcr 10 MEQ PO DAILY, CAP Simethicone (Mylanta Gas Minis) 41.667 Mg Chw 311 MG PO DIRECTED Simvastatin (Zocor) 40 Mg Tab 40 MG PO QPM Tamsulosin Hcl (Flomax) 0.4 Mg Cap 0.4 MG PO DAILY, CAP Discharge Exam Patient feeling great on day of discharge, eating well, ostomy functioning well. He was able to empty the ostomy bag by himself several times without difficulty, observed by the nursing staff. Ambulating independently in the halls. Family on board for discharge to home, home nursing arranged. Review of Systems: Constitutional: No fever, No chills, No sweats, No weight loss, No weakness , No fatigue, No problem reported Eyes: No worsening of vision, No eye pain, No redness, No discharge, No diplopia, No problem reported ENT: No hearing loss, No unusual epistaxis, No nasal symptoms, No sore throat, No tinnitus, No dental problems, No trouble swallowing, No problem reported Respiratory: No cough, No sputum, No wheezing, No shortness of breath, No dyspnea on exertion, No dyspnea at rest, No hemoptysis, No problem reported Cardiovascular: No chest pain, No orthopnea, No PND, No edema, No claudication, No palpitations, No problem reported Abdomen: + problem reported (ostomy functioning well), No pain, No nausea, No vomiting, No diarrhea, No constipation, No GI bleeding Musculoskeletal: No joint pain, No muscle pain, No swelling, No calf pain, No problem reported Genitourinary - Male: No hematuria, No dysuria, No urinary frequency, No urinary urgency Neurologic: + weakness, No memory loss, No paralysis, No numbness/tingling, No vertigo, No balance problems, No problem reported Psychiatric: No depression symptoms, No anhedonism, No anxiety, No insomnia , No substance abuse, No problem reported Endocrine: No fatigue, No excessive thirst, No excessive urination, No problem reported Hematologic / Lymphatic: No abnormal bleeding/bruising, No clotting problems , No swollen lymph nodes, No night sweats, No problem reported Integumentary: No rash, No itch, No new/changing skin lesions, No color change, No bleeding, No problem reported Physical Exam: General Appearance: no apparent distress, + thin Eyes: normal inspection, EOMI, sclerae normal ENT: normal ENT inspection, hearing grossly normal, pharynx normal Neck: supple, no adenopathy, no JVD, trachea midline Respiratory/Chest: chest non-tender, lungs clear, normal breath sounds, no respiratory distress, no accessory muscle use Cardiovascular: regular rate, rhythm, no edema, no gallop, no JVD, no murmur , normal peripheral pulses Abdomen / GI: normal bowel sounds, non tender, soft, no organomegaly, + pertinent finding (ostomy functioning well, incision clean and dry) Extremities: normal inspection, no calf tenderness, normal capillary refill , no pedal edema, normal range of motion, pelvis stable 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 Pt had been medically managed for an SBO 06/25. A few weeks prior he had been diagnosed with colon CA on a colonoscopy. He is currently receiving oral chemotherapy with Xeloda. He developed abdominal pain , nausea and vomiting earlier in the day and presented for evaluation. A CT revealed an SBO related to a distinct mass at the ileocecal junction. This was not as prominent on a previous CT here but as per Surgery notes, was seen on a CT at [facility] more recently. SBO / Colon CA / Ileocecal mass - diverting ileostomy which was performed on 09/11-continues to have excellent recovery post-op and is now tolerating regular diet excellent ostomy output, patient able to empty the ostomy bag independently patient and four family members had teaching with ostomy nurse on bag management, cleaning, changing bag and home nursing arranged d/c to home with home nursing Consult Oncology -discussed with Dr. Tolbert--> holding Xeloda and will restart after recovered from ileostomy and if functional status good enough-f/u as outpatient -continue PPI -not requiring any pain meds -f/u with Surgery in office in 1-2 weeks-Dr. Bautista Urinary retention, Hematuria, BPH- Hematuria completely resolved -voiding well after nguyen d/c -continue Flomax CAD w/ h/o acute [place] - no evidence of ACS. Stable for many years, follows with Dr. Franklin of [facility] [place] Cardiology -cont simvastatin -not on ASA presumably due to chemo and recent procedures? 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 Discharge Instructions Please refer to the electronic Patient Visit Report (Discharge Instructions) for additional information. Follow-Up Dr. Bautista in [address] Tolbert in a few weeks Additional Copies To Mike Bautista M.D.; Sonido Riojas M.D.
[2016-09-28] MEDS ORDERED: Enteral Nutrition Formula PO (14:12)
[2016-09-28] MEDS ORDERED: MGNO400 PO (14:12)
[2016-09-28] MEDS ORDERED: SYN25 PO (14:12)
[2016-09-28] MEDS ORDERED: [UNRECOGNIZED DRUG - OTHER] PO (14:12)
== END 2016-09-18 14:32 | disposition home health service (06) | DRG 330 ==
LOC: C.EDB 17:25 → C.MSN 20:16 → ENRESERV 20:49
PROVIDERS: ADMIT Internal Medicine; ATTEND Internal Medicine
PROC: 0D1B0Z4 Bypass Ileum to Cutaneous, Open Approach (ICD-10-PCS; principal; 2016-09-11 10:00)
DX: C18.0 Malignant neoplasm of cecum (principal); C20 Malignant neoplasm of rectum; K56.60 Unspecified intestinal obstruction; J90 Pleural effusion, not elsewhere classified; C78.7 Secondary malignant neoplasm of liver and intrahepatic bile duct; C78.00 Secondary malignant neoplasm of unspecified lung; I25.10 Atherosclerotic heart disease of native coronary artery without angina pectoris; E03.9 Hypothyroidism, unspecified; M06.00 Rheumatoid arthritis without rheumatoid factor, unspecified site; I10 Essential (primary) hypertension; E11.9 Type 2 diabetes mellitus without complications; N40.1 Benign prostatic hyperplasia with lower urinary tract symptoms; R31.9 Hematuria, unspecified; R33.9 Retention of urine, unspecified; D50.9 Iron deficiency anemia, unspecified; E78.5 Hyperlipidemia, unspecified; K21.9 Gastro-esophageal reflux disease without esophagitis; N20.0 Calculus of kidney; I25.2 Old myocardial infarction; Z87.891 Personal history of nicotine dependence; Z90.49 Acquired absence of other specified parts of digestive tract; Z79.84 Long term (current) use of oral hypoglycemic drugs; Z79.899 Other long term (current) drug therapy; Z88.0 Allergy status to penicillin; Z88.1 Allergy status to other antibiotic agents; Z88.2 Allergy status to sulfonamides; Z88.5 Allergy status to narcotic agent; Z88.8 Allergy status to other drugs, medicaments and biological substances; Z82.49 Family history of ischemic heart disease and other diseases of the circulatory system; Z84.1 Family history of disorders of kidney and ureter; R91.8 Other nonspecific abnormal finding of lung field

== ENCOUNTER 2016-09-26 17:49 | Inpatient (IN) | payer OTHER ==
[~2016-09-26] VITALS: Ht 165.1 cm; Wt 57.2 kg
[~2016-09-26 17:49] MED LIST changes: -PRED-301 PO
[2016-09-26] MEDS ORDERED: SODIUM CHLORIDE 0.9% 1000ML 1,000 ML IV ONE (18:02)
--- NOTE | 2016-09-26 18:22 | EMERGENCY ROOM VISIT NOTE ---
History Report prepared by Vance: Evelyn Landon Under the Supervision of: Dr. Jeremiah Fleming D.O. First contact with patient: 17:58 Chief Complaint: REFERRED BY DOCTOR Stated Complaint: DEHYDRTAED, LOW BP, WANTS FLUIDS History of Present Illness The patient is a 80 year old male who presents to the Emergency Room with complaints of dehydration today. The patient has also been hypotensive. The patient was referred by Dr. Tolbert and got 500 ml of fluid today. Per his family, the patient's first and only colonoscopy was the end of May which is when they discovered that he had colon cancer. His colon cancer has also spread to his liver, and he is treated with chemotherapy. The patient had a bowel obstruction from his colon cancer, and now has an ostomy. He denies abdominal pain, vomiting, fevers, and blood in his stool. The patient has a history of 3 heart attacks. He is not diabetic, and does not use tobacco or alcohol. He currently is not on antibiotics. Source of History: patient Onset: today Position: other (global) Quality: other (dehydration) Associated Symptoms: No fevers, No vomiting, No abdominal pain, No melena Note: additional symptom: hypotension Review of Systems See HPI for pertinent positives & negatives. A total of 10 systems reviewed and were otherwise negative. Past Medical & Surgical Medical Problems: (1) Colon cancer (2) Coronary artery disease (3) Hypercholesteremia (4) Hypertension (5) Kidney stones (6) Myocardial infarct (7) Pleural effusion (8) SBO (small bowel obstruction) (9) Vertigo Family History Cancer Diabetes mellitus FHx: heart disease FHx: kidney disease/stones Social History Smoking Status: Former Smoker Alcohol Use: none Drug Use: none Marital Status: Housing Status: lives with significant other Occupation Status: retired Current/Historical Medications Scheduled Ergocalciferol (Vitamin D 27710 Unit), 50,000 UNIT PO 2XWK Ferrous Sulfate (Iron), 325 MG PO DAILY Furosemide (Lasix), 20 MG PO DAILY Levothyroxine Sodium (Levothyroxine Sodium), 50 MCG PO DAILY Nitroglycerin (Nitrostat), 0.4 MG UT PRN Omeprazole (Prilosec), 1 CAP PO DAILY Potassium Chloride (Micro-K Ext Rel), 10 MEQ PO DAILY Simethicone (Mylanta Gas Minis), 311 MG PO DIRECTED Simvastatin (Zocor), 40 MG PO QPM Tamsulosin Hcl (Flomax), 0.4 MG PO DAILY Allergies Coded Allergies: Clarithromycin (Verified Allergy, Severe, "MAJOR RXN" ?, 09/26/16) Penicillins (Verified Allergy, Severe, "MAJOR RXN" ?, 09/26/16) Sulfa Antibiotics (Verified Allergy, Severe, "SULFA DRUGS": "MAJOR RXN"?, 09/26/16) Cephalosporins (Verified Allergy, Unknown, ?, 09/26/16) Diltiazem (Verified Allergy, Unknown, FLUSHING, 09/26/16) Morphine (Verified Allergy, Unknown, N/V, 09/26/16) Streptokinase (Verified Allergy, Unknown, ?, 09/26/16) Sulfonylureas (Verified Allergy, Unknown, RASH, 09/26/16) Codeine (Verified Adverse Reaction, Mild, NAUSEA / VOMITING, 09/26/16) Physical Exam Vital Signs Date Time Temp Pulse Resp B/P (MAP) Pulse Ox O2 Delivery O2 Flow Rate FiO2 09/26/16 22:59 52 18 99/58 98 Room Air 09/26/16 21:14 69 16 97/57 96 Room Air 09/26/16 19:00 65 14 96/69 97 Room Air 09/26/16 18:35 94 Room Air 09/26/16 17:51 36.5 56 17 85/55 90 Room Air Physical Exam GENERAL: Patient is awake, alert, and in no acute distress. Patient is resting comfortably and showing no signs of anxiety EYES: The conjunctivae are clear. The pupils are round and reactive. EARS, NOSE, MOUTH AND THROAT: The nose is without any evidence of any deformity. Mucous membranes are dry tongue is midline NECK: The neck is nontender and supple. RESPIRATORY: Normal respiratory effort is noted there is no evidence of wheezing rhonchi or rales CARDIOVASCULAR: Regular rate and rhythm noted there no murmurs rubs or gallops normal S1 normal S2 GASTROINTESTINAL: The abdomen is soft. Bowel sounds are present in all quadrants. Abdomen is nontender. Ostomy noted on right side of abdomen. No blood appreciated in ostomy bag. Skin augustus were in place. no dehiscence or erythema noted. MUSCULOSKELETAL/EXTREMITIES: There is no evidence of gross deformity full range of motion is noted in the hips and shoulders SKIN: There is no obvious evidence of any rash. There are no petechiae, pallor or cyanosis noted. NEUROLOGIC: Patient is awake alert and oriented x3 Medical Decision & Procedures ER Provider Diagnostic Interpretation: X-ray results as stated below per interpretation by me and the radiologist. SINGLE VIEW CHEST CLINICAL HISTORY: Sepsis. FINDINGS: An AP, portable, upright chest radiograph is compared to study dated 06/24/2016 and correlated with chest CT dated 06/23/2016. The examination is degraded by portable technique and patient rotation. The heart is mildly enlarged. The pulmonary vasculature is noncongested. There are calcified mediastinal and hilar lymph nodes. There is atherosclerotic calcification of the thoracic aorta. Emphysema and chronic interstitial thickening is similar to previous. A large calcified granuloma is again seen in the right lower lung. There is no evidence of superimposed airspace consolidation or pleural effusion. Biapical scarring is observed. No pneumothorax is seen. The skeletal structures are osteopenic. The bony thorax is grossly intact. IMPRESSION: 1. Cardiomegaly and emphysema. 2. Extensive chronic interstitial thickening and parenchymal changes are similar to previous. There is no evidence of superimposed airspace consolidation or pleural effusion. Electronically signed by: Levy Mcgowan M.D. 09/26/2016 7:44 PM Dictated Date/Time: 09/26/2016 7:42 PM KUB CLINICAL HISTORY: Increased ostomy output. FINDINGS: 2 AP supine abdominal radiographs are correlated with abdominal CT dated 09/09/2016. Midline skin clips are noted. An ostomy is present in the right lower quadrant. No bowel obstruction is seen. No evidence of intraperitoneal free air is identified on this supine view. Mild small bowel wall thickening suggested in the mid abdomen. Numerous calcifications are seen in the pelvis including bladder calculi. There is evidence carotid calcification of the abdominal aorta and femoral arteries. Skeletal structures are osteopenic. Lumbosacral spondylosis is noted. IMPRESSION: 1. There is no radiographic evidence of bowel obstruction. 2. Mild small bowel wall thickening is questioned. Cortical clinically for evidence of a nonspecific enteritis. Electronically signed by: Levy Mcgowan M.D. 09/26/2016 7:54 PM Dictated Date/Time: 09/26/2016 7:51 PM Laboratory Results 09/26/16 18:52 Red Blood Count 4.16, Mean Corpuscular Volume 87.0, Mean Corpuscular Hemoglobin 29.1, Mean Corpuscular Hemoglobin Concent 33.4, Mean Platelet Volume 9.8, Neutrophils (%) (Auto) 52.0, Lymphocytes (%) (Auto) 38.6, Monocytes (%) (Auto) 8.3, Eosinophils (%) (Auto) 0.6, Basophils (%) (Auto) 0.3, Neutrophils # (Auto) 3.20, Lymphocytes # (Auto) 2.38, Monocytes # (Auto) 0.51, Eosinophils # (Auto) 0.04, Basophils # (Auto) 0.02 Test 09/26/16 18:52 09/26/16 18:54 09/26/16 19:30 09/26/16 20:54 White Blood Count 6.16 K/uL (4.8-10.8) Red Blood Count 4.16 M/uL (4.7-6.1) Hemoglobin 12.1 g/dL (14.0-18.0) Hematocrit 36.2 % (42-52) Mean Corpuscular Volume 87.0 fL (80-100) Mean Corpuscular Hemoglobin 29.1 pg (25-34) Mean Corpuscular Hemoglobin Concent 33.4 g/dl (32-36) Platelet Count 307 K/uL (130-400) Mean Platelet Volume 9.8 fL (7.4-10.4) Neutrophils (%) (Auto) 52.0 % Lymphocytes (%) (Auto) 38.6 % Monocytes (%) (Auto) 8.3 % Eosinophils (%) (Auto) 0.6 % Basophils (%) (Auto) 0.3 % Neutrophils # (Auto) 3.20 K/uL (1.4-6.5) Lymphocytes # (Auto) 2.38 K/uL (1.2-3.4) Monocytes # (Auto) 0.51 K/uL (0.11-0.59) Eosinophils # (Auto) 0.04 K/uL (0-0.5) Basophils # (Auto) 0.02 K/uL (0-0.2) RDW Standard Deviation 78.7 fL (36.4-46.3) RDW Coefficient of Variation 24.3 % (11.5-14.5) Immature Granulocyte % (Auto) 0.2 % Immature Granulocyte # (Auto) 0.01 K/uL (0.00-0.02) Echinocytes 1+ Schistocytes 1+ Erythrocyte Sedimentation Rate 25 mm/hr (0-14) Prothrombin Time 10.7 SECONDS (9.0-12.0) Prothromb Time International Ratio 1.0 (0.9-1.1) Activated Partial Thromboplast Time 27.7 SECONDS (21.0-31.0) Partial Thromboplastin Ratio 1.1 Venous Blood pH 7.27 (7.36-7.41) Venous Blood Partial Pressure CO2 46 mmHg (38.0-50.0) Venous Blood Partial Pressure O2 32 mmHg Venous Blood HCO3 21 mmol/L Venous Blood Oxygen Saturation < 60.0 % Venous Blood Base Excess -5.8 mEq/L Phosphorus Level 4.0 mg/dl (2.5-4.9) Total Bilirubin 0.3 mg/dl (0.2-1) Aspartate Amino Transf (AST/SGOT) 33 U/L (15-37) Alanine Aminotransferase (ALT/SGPT) 32 U/L (12-78) Alkaline Phosphatase 90 U/L (45-117) C-Reactive Protein < 0.29 mg/dl (0-0.29) Pro-B-Type Natriuretic Peptide 280 pg/ml (0-1800) Total Protein 7.4 gm/dl (6.4-8.2) Albumin 3.0 gm/dl (3.4-5.0) Globulin 4.4 gm/dl (2.5-4.0) Albumin/Globulin Ratio 0.7 (0.9-2) Amylase Level 58 U/L (25-115) Lipase 218 U/L (73-393) Bedside Lactic Acid Venous 0.58 mmol/L (0.90-1.70) Urine Color DK YELLOW Urine Appearance CLEAR (CLEAR) Urine pH 5.0 (4.5-7.5) Urine Specific [place] 1.025 (1.000-1.030) Urine Protein TRACE (NEG) Urine Glucose (UA) NEG (NEG) Urine Ketones NEG (NEG) Urine Occult Blood 2+ (NEG) Urine Nitrite NEG (NEG) Urine Bilirubin NEG (NEG) Urine Urobilinogen NEG (NEG) Urine Leukocyte Esterase NEG (NEG) Urine WBC (Auto) 1-5 /hpf (0-5) Urine RBC (Auto) 5-10 /hpf (0-4) Urine Hyaline Casts (Auto) >30 /lpf (0-5) Urine Epithelial Cells (Auto) >30 /lpf (0-5) Urine Bacteria (Auto) NEG (NEG) Urine Pathogenic Casts 0-3 GRANULAR CASTS /lpf (0) Urine Yeast (Auto) PRESENT (NONE PRSENT) Total Creatine Kinase 39 U/L (39-308) Date/Time Source Procedure Growth Status 09/26/16 19:30 Stool C.difficile Toxin B Gene (PCR) - Final No C. difficile toxin B gene detected Complete Laboratory results per my review. Medications Administered Medications (Trade) Dose Ordered Sig/Lenka Route Start Time Stop Time Status Last Admin Dose Admin Sodium Chloride 1,000 ml @ 999 mls/hr Q1H1M ONCE IV 09/26/16 18:02 09/26/16 19:02 DC 09/26/16 19:05 999 MLS/HR Magnesium Sulfate (Magnesium Sulfate) 1 gm NOW STAT IV 09/26/16 19:24 09/26/16 19:25 DC 09/26/16 19:24 1 GM Sodium Chloride 1,000 ml @ 999 mls/hr Q1H1M STAT IV 09/26/16 19:47 09/26/16 20:47 DC 09/26/16 20:30 999 MLS/HR ECG Indication: weakness Rate (beats per minute): 55 Rhythm: sinus bradycardia Findings: RBBB, no ectopy Change: no significant change (from September 09, 2016) ED Course 1800: The patient was evaluated in room B2. A complete history and physical examination were performed. 1801: Ordered Sodium Chloride 1,000 ml @ 999 mls/hr IV. 1941: Ordered Magnesium Sulfate 1 gm IV. 1946: Ordered Sodium Chloride 1,000 ml @ 999 mls/hr IV. 1950: The patient says he is feeling fine. 2000: I discussed the patient's case with Dr. Bautista of [facility]. 2030: I discussed the patient's case with Dr. Reed. The patient will be evaluated for further management by him. Medical Decision Differential diagnosis: Etiologies such as metabolic, infection, hypo/hyperglycemia, electrolyte abnormalities, cardiac sources, intracerebral event, toxicologic, neurologic, as well as others were entertained. Nursing notes reviewed. Patient's previous electronic medical records reviewed. The patient is an 80-year-old male who presented to the emergency department for an evaluation of high output from his ileostomy. The patient was previously diagnosed with bowel cancer and had an ostomy because of a bowel obstruction. The patient presents to the emergency department from his primary oncologist office for dehydration and hypotension. The patient does have a history of low blood pressure in the past. The patient was treated with IV fluids and IV magnesium replacement in the emergency department. I discussed the patient's laboratory and radiographic studies with him. He was found have an acidosis with dehydration. The patient was feeling much better on subsequent reevaluation. I discussed his case with the on-call general surgeon. Because the patient's recent surgery and the degree of ostomy output he recommends keeping the patient in the hospital for further management. I discussed his case with the on-call [facility] hospitalist. They've agreed to evaluate the patient in the emergency department for further management and disposition. I discussed the patient's laboratory and radiographic studies with his family as well. Medication Reconcilliation Current Medication List: was personally reviewed by me Blood Pressure Screening Patient's blood pressure: Low blood pressure Consults Time Called: 1949 Consulting Physician: Dr. Bautista [facility] Returned Call: 1999 I discussed the patient's case with Dr. Bautista of [facility]. The patient will be evaluated for further management. Additional Consults: Time Called: 1999 Consulted Physician: Dr. Reed- [facility] Returned Call: [phone] Additional Comments: I discussed the patient's case with Dr. Reed. The patient will be evaluated for further management. Impression Primary Impression: Diarrhea Additional Impressions: Hypotension History of bowel resection High output ileostomy Dehydration Metabolic acidosis Scribe Attestation The scribe's documentation has been prepared under my direction and personally reviewed by me in its entirety. I confirm that the note above accurately reflects all work, treatment, procedures, and medical decision making performed by me. Departure Information Dispostion Being Evaluated By Hospitalist Sonido Rhodes M.D. (PCP) Patient Instructions My [facility] Problem Qualifiers Additional Impressions: Hypotension Hypotension type: unspecified hypotension type Qualified Codes: I95.9 - Hypotension, unspecified
[2016-09-26 19:03] LABS: BASO % 0.3 %; BASO ABS # 0.02 K/uL (0-0.2); EOS % 0.6 %; HEMATOCRIT 36.2 % (42-52); IG% 0.2 %; LYMPH % 38.6 %; LYMPH ABS # 2.38 K/uL (1.2-3.4); MEAN CORPUSCULAR HEMOGLOBIN 29.1 pg (25-34); MEAN CORPUSCULAR HGB CONC 33.4 g/dl (32-36); MEAN PLATELET VOLUME 9.8 fL (7.4-10.4); MONO % 8.3 %; PLATELET COUNT 307 K/uL (130-400); RED BLOOD COUNT 4.16 M/uL (4.7-6.1); WHITE BLOOD COUNT 6.16 K/uL (4.8-10.8)
[2016-09-26 19:13] LABS: PARTIAL THROMBOPLASTIN RATIO 1.1; PROTHROMBIN TIME (PATIENT) 10.7 SECONDS (9.0-12.0)
[2016-09-26 19:20] LABS: AMYLASE 58 U/L (25-115); BLOOD UREA NITROGEN 29 mg/dl (7-18); BUN/CREATININE RATIO 22.2 (10-20); CALCIUM 9.3 mg/dl (8.5-10.1); CARBON DIOXIDE 19 mmol/L (21-32); CHLORIDE 109 mmol/L (98-107); GLUCOSE 104 mg/dl (70-99); MAGNESIUM 1.7 mg/dl (1.8-2.4); SODIUM 135 mmol/L (136-145)
[2016-09-26] MEDS ORDERED: MAGNESIUM SULFATE 1GM / D5W 1 GM BAG IV STA (19:24)
[2016-09-26 19:27] LABS: COMPLETE YES; ECHINOCYTES 1+; SCHISTOCYTES 1+
--- NOTE | 2016-09-26 19:45 | DIAGNOSTIC IMAGING REPORT ---
SINGLE VIEW CHEST CLINICAL HISTORY: Sepsis. FINDINGS: An AP, portable, upright chest radiograph is compared to study dated 06/24/2016 and correlated with chest CT dated 06/23/2016. The examination is degraded by portable technique and patient rotation. The heart is mildly enlarged. The pulmonary vasculature is noncongested. There are calcified mediastinal and hilar lymph nodes. There is atherosclerotic calcification of the thoracic aorta. Emphysema and chronic interstitial thickening is similar to previous. A large calcified granuloma is again seen in the right lower lung. There is no evidence of superimposed airspace consolidation or pleural effusion. Biapical scarring is observed. No pneumothorax is seen. The skeletal structures are osteopenic. The bony thorax is grossly intact. IMPRESSION: 1. Cardiomegaly and emphysema. 2. Extensive chronic interstitial thickening and parenchymal changes are similar to previous. There is no evidence of superimposed airspace consolidation or pleural effusion. Electronically signed by: Levy Mcgowan M.D. 09/26/2016 7:44 PM Dictated Date/Time: 09/26/2016 7:42 PM
[2016-09-26 19:47] LABS: URINE APPEARANCE CLEAR (CLEAR); URINE BILIRUBIN NEG (NEG); URINE COLOR DK YELLOW; URINE EPITHELIAL CELL AUTO >30 /lpf (0-5); URINE NITRITE NEG (NEG); URINE SPECIFIC GRAVITY 1.025 (1.000-1.030); UROBILINOGEN NEG (NEG); ZZUR CULT IF INDIC CLEAN CATCH YES
[2016-09-26] MEDS ORDERED: SODIUM CHLORIDE 0.9% 1000ML 1,000 ML IV STA (19:47)
--- NOTE | 2016-09-26 19:55 | DIAGNOSTIC IMAGING REPORT ---
KUB CLINICAL HISTORY: Increased ostomy output. FINDINGS: 2 AP supine abdominal radiographs are correlated with abdominal CT dated 09/09/2016. Midline skin clips are noted. An ostomy is present in the right lower quadrant. No bowel obstruction is seen. No evidence of intraperitoneal free air is identified on this supine view. Mild small bowel wall thickening suggested in the mid abdomen. Numerous calcifications are seen in the pelvis including bladder calculi. There is evidence carotid calcification of the abdominal aorta and femoral arteries. Skeletal structures are osteopenic. Lumbosacral spondylosis is noted. IMPRESSION: 1. There is no radiographic evidence of bowel obstruction. 2. Mild small bowel wall thickening is questioned. Cortical clinically for evidence of a nonspecific enteritis. Electronically signed by: Levy Mcgowan M.D. 09/26/2016 7:54 PM Dictated Date/Time: 09/26/2016 7:51 PM
[2016-09-26 19:59] LABS: VEN BLOOD GAS BASE EXCESS -5.8 mEq/L; VENOUS BLOOD GAS PCO2 46 mmHg (38.0-50.0); VENOUS BLOOD GAS PO2 32 mmHg
[2016-09-26 20:06] LABS: MANUAL MICROSCOPIC REQUIRED? NO; REVIEW REQ? YES
[2016-09-26 20:07] LABS: ALB/GLOB RATIO 0.7 (0.9-2); ALKALINE PHOSPHATASE 90 U/L (45-117); ALT/SGPT 32 U/L (12-78); AST/SGOT 33 U/L (15-37); C-REACTIVE PROTEIN < 0.29 mg/dl (0-0.29); CKMB/CK RATIO 5.2 (0-3.0)
[2016-09-26 20:11] LABS: VEN BLD GAS O2 SATURATION < 60.0 %
[2016-09-26 20:17] LABS: URINE PATH CASTS 0-3 GRANULAR CASTS /lpf (0)
[2016-09-26 21:30] LABS: CKMB/CK RATIO 6.9 (0-3.0)
--- NOTE | 2016-09-26 22:18 | History and Physical ---
History & Physical Date & Time of Service: Sep 26, 2016 at 22:09 Chief Complaint: Dehydrtaed, Low Bp, Wants Fluids Primary Care Physician: Sonido Riojas M.D. History of Present Illness Source: patient, family (daughter) Mr English is am 80 year old male with stage IV colon cancer who presents to the ER with his daughter with hypotension, dehydration and high output ostomy. He went to his oncology appointment today and his BP was reportedly 68/46, he was given 500ml of IVF but his BP remained low. In hindsight he has been dizzy especially when standing up for the last few days. His ostomy output has been around 3-7L. He has needed to empty the bag every 3-3.5 hours. 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) Immunizations History of Influenza Vaccine: Yes Influenza Vaccine Date: Nov 03, 2012 History of Tetanus Vaccine?: UTD History of Pneumococcal: Unknown History of Hepatitis B Vaccine: Unknown Multi-Drug Resistant Organisms History of MDRO: No Allergies Coded Allergies: Clarithromycin (Verified Allergy, Severe, "MAJOR RXN" ?, 09/26/16) Penicillins (Verified Allergy, Severe, "MAJOR RXN" ?, 09/26/16) Sulfa Antibiotics (Verified Allergy, Severe, "SULFA DRUGS": "MAJOR RXN"?, 09/26/16) Cephalosporins (Verified Allergy, Unknown, ?, 09/26/16) Diltiazem (Verified Allergy, Unknown, FLUSHING, 09/26/16) Morphine (Verified Allergy, Unknown, N/V, 09/26/16) Streptokinase (Verified Allergy, Unknown, ?, 09/26/16) Sulfonylureas (Verified Allergy, Unknown, RASH, 09/26/16) Codeine (Verified Adverse Reaction, Mild, NAUSEA / VOMITING, 09/26/16) Home Medications Scheduled Ergocalciferol (Vitamin D 03648 Unit), 50,000 UNIT PO 2XWK Ferrous Sulfate (Iron), 325 MG PO DAILY Furosemide (Lasix), 20 MG PO DAILY Levothyroxine Sodium (Levothyroxine Sodium), 50 MCG PO DAILY Nitroglycerin (Nitrostat), 0.4 MG UT PRN Omeprazole (Prilosec), 1 CAP PO DAILY Potassium Chloride (Micro-K Ext Rel), 10 MEQ PO DAILY Simethicone (Mylanta Gas Minis), 311 MG PO DIRECTED Simvastatin (Zocor), 40 MG PO QPM Tamsulosin Hcl (Flomax), 0.4 MG PO DAILY Review of Systems Constitutional: No fever, No chills Respiratory: No cough, No sputum, No wheezing, No shortness of breath Cardiovascular: No chest pain Abdomen: + problem reported (high output stoma), No pain, No nausea, No vomiting Genitourinary - Male: No hematuria, No dysuria, No urinary frequency Hematologic / Lymphatic: No abnormal bleeding/bruising Integumentary: No rash, No itch Physical Exam Vital Signs Date Time Temp Pulse Resp B/P (MAP) Pulse Ox O2 Delivery O2 Flow Rate FiO2 09/26/16 21:14 69 16 97/57 96 Room Air 09/26/16 19:00 65 14 96/69 97 Room Air 09/26/16 18:35 94 Room Air 09/26/16 17:51 36.5 56 17 85/55 90 Room Air General Appearance: no apparent distress, + thin Head: normocephalic, atraumatic Eyes: normal inspection (pupis equal) Neck: supple, no JVD Respiratory/Chest: chest non-tender, lungs clear, normal breath sounds, no respiratory distress, no accessory muscle use Cardiovascular: regular rate, rhythm, no murmur, normal peripheral pulses Abdomen/GI: normal bowel sounds, non tender, soft, + pertinent finding ( functioning ileostomy with liquid stool, augustus still present in abdomen) Back: no CVA tenderness Extremities/Musculoskelatal: no calf tenderness, normal capillary refill, no pedal edema Neurologic/Psych: rating clerk II-XII nml as tested (no facial droop), no motor/sensory deficits (grossly normal), alert, oriented x 3 Skin: warm/dry Diagnostics Laboratory Results Results Past 24 Hours Test 09/26/16 18:52 09/26/16 18:54 09/26/16 19:30 09/26/16 20:54 Range/Units White Blood Count 6.16 4.8-10.8 K/uL Red Blood Count 4.16 4.7-6.1 M/uL Hemoglobin 12.1 14.0-18.0 g/dL Hematocrit 36.2 42-52 % Mean Corpuscular Volume 87.0 80-100 fL Mean Corpuscular Hemoglobin 29.1 25-34 pg Mean Corpuscular Hemoglobin Concent 33.4 32-36 g/dl Platelet Count 307 130-400 K/uL Mean Platelet Volume 9.8 7.4-10.4 fL Neutrophils (%) (Auto) 52.0 % Lymphocytes (%) (Auto) 38.6 % Monocytes (%) (Auto) 8.3 % Eosinophils (%) (Auto) 0.6 % Basophils (%) (Auto) 0.3 % Neutrophils # (Auto) 3.20 1.4-6.5 K/uL Lymphocytes # (Auto) 2.38 1.2-3.4 K/uL Monocytes # (Auto) 0.51 0.11-0.59 K/uL Eosinophils # (Auto) 0.04 0-0.5 K/uL Basophils # (Auto) 0.02 0-0.2 K/uL RDW Standard Deviation 78.7 36.4-46.3 fL RDW Coefficient of Variation 24.3 11.5-14.5 % Immature Granulocyte % (Auto) 0.2 % Immature Granulocyte # (Auto) 0.01 0.00-0.02 K/uL Echinocytes 1+ Schistocytes 1+ Erythrocyte Sedimentation Rate 25 0-14 mm/hr Prothrombin Time 10.7 9.0-12.0 SECONDS Prothromb Time International Ratio 1.0 0.9-1.1 Activated Partial Thromboplast Time 27.7 21.0-31.0 SECONDS Partial Thromboplastin Ratio 1.1 Venous Blood pH 7.27 7.36-7.41 Venous Blood Partial Pressure CO2 46 38.0-50.0 mmHg Venous Blood Partial Pressure O2 32 mmHg Venous Blood HCO3 21 mmol/L Venous Blood Oxygen Saturation < 60.0 % Venous Blood Base Excess -5.8 mEq/L Sodium Level 135 136-145 mmol/L Potassium Level 5.0 3.5-5.1 mmol/L Chloride Level 109 98-107 mmol/L Carbon Dioxide Level 19 21-32 mmol/L Anion Gap 7.0 3-11 mmol/L Blood Urea Nitrogen 29 7-18 mg/dl Creatinine 1.30 0.60-1.40 mg/dl Est Creatinine Clear Calc Drug Dose 30.3 ml/min Estimated GFR () 59.3 Estimated GFR (Non- 51.2 BUN/Creatinine Ratio 22.2 10-20 Random Glucose 104 70-99 mg/dl Calcium Level 9.3 8.5-10.1 mg/dl Phosphorus Level 4.0 2.5-4.9 mg/dl Magnesium Level 1.7 1.8-2.4 mg/dl Total Bilirubin 0.3 0.2-1 mg/dl Aspartate Amino Transf (AST/SGOT) 33 15-37 U/L Alanine Aminotransferase (ALT/SGPT) 32 12-78 U/L Alkaline Phosphatase 90 45-117 U/L Total Creatine Kinase 100 39 39-308 U/L Creatine Kinase MB 5.2 2.7 0.5-3.6 ng/ml Creatine Kinase MB Ratio 5.2 6.9 0-3.0 Troponin I 0.049 0-0.045 ng/ml C-Reactive Protein < 0.29 0-0.29 mg/dl Pro-B-Type Natriuretic Peptide 280 0-1800 pg/ml Total Protein 7.4 6.4-8.2 gm/dl Albumin 3.0 3.4-5.0 gm/dl Globulin 4.4 2.5-4.0 gm/dl Albumin/Globulin Ratio 0.7 0.9-2 Amylase Level 58 25-115 U/L Lipase 218 73-393 U/L Bedside Lactic Acid Venous 0.58 0.90-1.70 mmol/L Urine Color DK YELLOW Urine Appearance CLEAR CLEAR Urine pH 5.0 4.5-7.5 Urine Specific [place] 1.025 1.000-1.030 Urine Protein TRACE NEG Urine Glucose (UA) NEG NEG Urine Ketones NEG NEG Urine Occult Blood 2+ NEG Urine Nitrite NEG NEG Urine Bilirubin NEG NEG Urine Urobilinogen NEG NEG Urine Leukocyte Esterase NEG NEG Urine WBC (Auto) 1-5 0-5 /hpf Urine RBC (Auto) 5-10 0-4 /hpf Urine Hyaline Casts (Auto) >30 0-5 /lpf Urine Epithelial Cells (Auto) >30 0-5 /lpf Urine Bacteria (Auto) NEG NEG Urine Pathogenic Casts 0-3 GRANULAR CASTS 0 /lpf Urine Yeast (Auto) PRESENT NONE PRSENT Microbiology Results 09/26/16 Blood Culture, Received Pending 09/26/16 Blood Culture, Received Pending 09/26/16 C.difficile Toxin B Gene (PCR) - Final, Complete No C. difficile toxin B gene detected 09/26/16 WBC Smear, Received Pending 09/26/16 Shiga Toxin Test, Received Pending 09/26/16 Stool Culture, Received Pending 09/26/16 Urine Culture, Received Pending Diagnostic Radiology SINGLE VIEW CHEST CLINICAL HISTORY: Sepsis. FINDINGS: An AP, portable, upright chest radiograph is compared to study dated 06/24/2016 and correlated with chest CT dated 06/23/2016. The examination is degraded by portable technique and patient rotation. The heart is mildly enlarged. The pulmonary vasculature is noncongested. There are calcified mediastinal and hilar lymph nodes. There is atherosclerotic calcification of the thoracic aorta. Emphysema and chronic interstitial thickening is similar to previous. A large calcified granuloma is again seen in the right lower lung. There is no evidence of superimposed airspace consolidation or pleural effusion. Biapical scarring is observed. No pneumothorax is seen. The skeletal structures are osteopenic. The bony thorax is grossly intact. IMPRESSION: 1. Cardiomegaly and emphysema. 2. Extensive chronic interstitial thickening and parenchymal changes are similar to previous. There is no evidence of superimposed airspace consolidation or pleural effusion. Electronically signed by: Levy Mcgowan M.D. 09/26/2016 7:44 PM Dictated Date/Time: 09/26/2016 7:42 PM KUB CLINICAL HISTORY: Increased ostomy output. FINDINGS: 2 AP supine abdominal radiographs are correlated with abdominal CT dated 09/09/2016. Midline skin clips are noted. An ostomy is present in the right lower quadrant. No bowel obstruction is seen. No evidence of intraperitoneal free air is identified on this supine view. Mild small bowel wall thickening suggested in the mid abdomen. Numerous calcifications are seen in the pelvis including bladder calculi. There is evidence carotid calcification of the abdominal aorta and femoral arteries. Skeletal structures are osteopenic. Lumbosacral spondylosis is noted. IMPRESSION: 1. There is no radiographic evidence of bowel obstruction. 2. Mild small bowel wall thickening is questioned. Cortical clinically for evidence of a nonspecific enteritis. Electronically signed by: Levy Mcgowan M.D. 09/26/2016 7:54 PM EKG Sinus bradycardia Right bundle branch block Left anterior fascicular block Bifascicular block Impression Assessment and Plan 80 year old male with colon cancer s/p ileostomy after small bowel obstruction admission for dehydration, light headedness with high output ostomy Dehydration / hypotension - 2L NSS in ER. Continue NSS @ 200 MLS/HR - trend Cr - hold PRN lasix High Output ostomy - stool culture pending - c. diff negative - Consult surgery - consider GI referral if persistent Elevated troponin - known CAD - no chest pain, repeat in morning Hypomagnesemia - trend and replace as necessary VTE Prophylaxis - chemical prophylaxis deferred as possible discharge tomorrow and recent surgery. If admission for longer consider chemical prophylaxis Resident Physician Supervision Note: Pt seen/examined independently. I discussed the case with the resident and agree with the findings and plan as documented in the note. Any exceptions or clarifications are listed here: 80 y/o M Hx CAD, HTN, pleural effusion, metastatic colon CA post resection and colostomy placement - sent to ER due to increased ostomy output and possible hypotensive episode - labs are consistent with dehydration - hypotension was not confirmed. OE AAO x 2 S1,2 R CTAB NT, ND - mixture of liquid and solid stool in ostomy P: Culture stool, IVF - may need GI consult if high output continues Discussed with pt and daughter Documented By: Josiah Reed Level of Care Med/Surg VTE Prophylaxis VTE Risk Assessment Done? Y/N: Yes Risk Level: Moderate Given or contraindicated: Treatment not indicated (likely admission overnight only) Additional Copies To José Miguel Tolbert MD; Sonido Riojas M.D. Resident Tracking Resident Involvement: Resident Care Provided Care Provided: Adult Hospital Medicine
[2016-09-26] MEDS ORDERED: ONDANSETRON INJ 2 MG/ML 2 ML VIAL IV PRN (22:45)
[2016-09-26] MEDS ORDERED: IV FLUIDS COMPLETED PRN (23:00)
[2016-09-27] VITALS (11 sets, daily range): BP systolic 82–121; BP diastolic 43–63; PULSE 46–60; TEMP 36.2–36.7; O2SAT 98–100; Ht 165.1 cm; Wt 57.2 kg
[2016-09-27] MEDS ORDERED: NITROGLYCERIN 0.4 MG SL PER TAB CHARGE UT SCH (05:00)
[2016-09-27] MEDS: SODIUM CHLORIDE 0.9% 1000ML 1,000 ML IV SCH ×4 (05:23→20:38)
[2016-09-27] MEDS: LEVOTHYROXINE 50 MCG TAB PO SCH (06:14)
[2016-09-27] MEDS: LOPERAMIDE LIQUID 1MG/7.5ML 120ML BTL PO SCH ×3 (06:25→18:12)
--- NOTE | 2016-09-27 07:01 | SURGICAL CONSULTATION ---
DATE OF ADMISSION: 09/27/2016 This is for high ileostomy output. HISTORY OF PRESENT ILLNESS: The patient is an 80-year-old male, who presented to the Emergency Room with high ileostomy output after undergoing a loop ileostomy on 09/11/[address] Bautista. This was performed because, apparently, the patient has metastatic colon cancer with tumor in the sigmoid colon which could not be traversed by a colonoscope and also potential tumor in the ileocecal region as well as liver and lung metastases. He, apparently, has been undergoing some chemotherapy. He did relatively well from the operation and was discharged to home, but has been having high ileostomy output and does show signs of dehydration. Other history includes coronary artery disease, metastatic colon cancer, hypertension. FAMILY AND SOCIAL HISTORY: Essentially noncontributory. ALLERGIES: HE HAS MULTIPLE ALLERGIES, INCLUDING PENICILLIN, SULFA, CEPHALOSPORINS. REVIEW OF SYSTEMS: He has no fever, chills, cough, shortness of breath, chest pain, abdominal pain, nausea, vomiting, dysuria, no rash. PHYSICAL EXAMINATION: GENERAL: He is awake and alert. He is in no distress. HEENT: His sclerae are nonicteric. His head is atraumatic. NECK: Supple. His mucous membranes are dry. LUNGS: Clear. HEART: Regular rate and rhythm. ABDOMEN: Flat and soft. He is healing well. He does have augustus in place. Ileostomy is viable with a watery output in his bag. EXTREMITIES: Without significant edema. He has no rashes. ASSESSMENT AND PLAN: The patient is admitted with dehydration and high ileostomy output. He is status post loop ileostomy on 09/11/2016. We will try some Imodium and also Protonix. There is consideration of trying some octreotide subcutaneously or IV, depending on his progress. He has had adequate urine output, but it is apparent that he needs IV fluids. We may consider a GI input to try to control his output.
[2016-09-27 07:06] LABS: BUN/CREATININE RATIO 23.8 (10-20); CALCIUM 8.3 mg/dl (8.5-10.1); CREATININE 0.92 mg/dl (0.60-1.40); MAGNESIUM 1.8 mg/dl (1.8-2.4); POTASSIUM 4.3 mmol/L (3.5-5.1)
[2016-09-27] MEDS ORDERED: TAMSULOSIN HCL 0.4 MG CAP PO SCH (08:00)
[2016-09-27] MEDS ORDERED: PANTOprazole SOD 40 MG TAB PO SCH (08:00)
[2016-09-27] MEDS: POTASSIUM CHLORIDE 10 MEQ TABCR PO SCH (08:22)
[2016-09-27] MEDS: PANTOprazole SOD 40 MG TAB PO SCH (08:23)
[2016-09-27] MEDS: FERROUS SULFATE 325 MG TAB PO SCH (08:23)
--- NOTE | 2016-09-27 09:05 | Progress Note ---
Subjective Date of Service: Sep 27, 2016. Subjective Pt evaluation today including: conversation w/ patient, conversation w/ family , physical exam, chart review, lab review, review of studies, conversation w/ urban design consultant, review of inpatient medication list Up to the restroom, changing colostomy bag by self, report has continuous high amount of output from colostomy bag, with liquid stool, feeling generalized weakness Denied dizziness, denied chest pain, Problem List Medical Problems: (1) Dehydration Status: Acute (2) Dehydration Status: Acute (3) Diarrhea Status: Acute (4) High output ileostomy Status: Acute (5) Hypotension Status: Acute (6) Metabolic acidosis Status: Acute (7) Small bowel obstruction Status: Acute (8) Vomiting Status: Acute Social History Problems: (1) History of bowel resection Status: Acute Review of Systems Constitutional: + weakness, + fatigue, No fever, No chills, No sweats, No weight loss, No problem reported Eyes: No worsening of vision, No eye pain, No redness, No discharge, No diplopia ENT: No hearing loss, No unusual epistaxis, No nasal symptoms, No sore throat, No tinnitus, No dental problems, No trouble swallowing Respiratory: No cough, No sputum, No wheezing, No shortness of breath, No dyspnea on exertion, No dyspnea at rest, No hemoptysis Cardiac: No chest pain, No orthopnea, No PND, No edema, No claudication, No palpitations Abdomen: + diarrhea (high output from colostomy bag), No pain, No nausea, No vomiting, No constipation Musculoskeletal: No joint pain, No muscle pain, No swelling, No calf pain Male : No dysuria, No urinary frequency, No incontinence, No nocturia more than once/night, No slowing stream, No hematuria Neurologic: No memory loss, No paralysis, No weakness, No numbness/tingling, No vertigo, No balance problems Psychiatric: No depression symptoms, No anhedonism, No anxiety, No insomnia, No substance abuse Heme: No abnormal bleeding/bruising, No clotting problems, No swollen lymph nodes, No night sweats Endo: No fatigue, No excessive thirst, No excessive urination Skin: No rash, No itch, No new/changing skin lesions, No color change, No bleeding Objective Vital Signs Date Time Temp Pulse Resp B/P (MAP) Pulse Ox O2 Delivery O2 Flow Rate FiO2 09/27/16 08:52 Room Air 09/27/16 07:28 36.2 48 18 86/49 (61) 98 Room Air 09/27/16 04:25 36.6 53 18 99/51 (67) 99 Room Air 09/27/16 00:00 36.4 60 18 93/58 99 Room Air 09/26/16 23:43 52 18 99/58 98 09/26/16 22:59 52 18 99/58 98 Room Air 09/26/16 21:14 69 16 97/57 96 Room Air 09/26/16 19:00 65 14 96/69 97 Room Air 09/26/16 18:35 94 Room Air 09/26/16 17:51 36.5 56 17 85/55 90 Room Air Physical Exam General Appearance: WD/WN, no apparent distress, + thin, + pertinent finding ( frail) Eyes: normal inspection, PERRL, EOMI, sclerae normal ENT: normal ENT inspection, hearing grossly normal, pharynx normal Neck: supple, no adenopathy, thyroid normal, no JVD, no carotid bruits, trachea midline Respiratory/Chest: chest non-tender, lungs clear, normal breath sounds, no respiratory distress, no accessory muscle use Cardiovascular: regular rate, rhythm, no edema, no gallop, no JVD, no murmur Abdomen: normal bowel sounds, non tender, soft, no organomegaly, no pulsatile mass, + pertinent finding (right abdomen colostomy bag with liquid yellow-brown stool, no blood) Extremities: normal range of motion, non-tender, normal inspection, no pedal edema, no calf tenderness, normal capillary refill, pelvis stable Neurologic/Psychiatric: manager chinese II-XII nml as tested, no motor/sensory deficits, alert, normal mood/affect, oriented x 3, + abnormal cerebellar tests Skin: normal color, warm/dry, no rash Lymphatic: no adenopathy Laboratory Results Last 24 Hours Test 09/26/16 18:52 09/26/16 18:54 09/26/16 19:30 09/26/16 20:54 White Blood Count 6.16 K/uL Red Blood Count 4.16 M/uL Hemoglobin 12.1 g/dL Hematocrit 36.2 % Mean Corpuscular Volume 87.0 fL Mean Corpuscular Hemoglobin 29.1 pg Mean Corpuscular Hemoglobin Concent 33.4 g/dl Platelet Count 307 K/uL Mean Platelet Volume 9.8 fL Neutrophils (%) (Auto) 52.0 % Lymphocytes (%) (Auto) 38.6 % Monocytes (%) (Auto) 8.3 % Eosinophils (%) (Auto) 0.6 % Basophils (%) (Auto) 0.3 % Neutrophils # (Auto) 3.20 K/uL Lymphocytes # (Auto) 2.38 K/uL Monocytes # (Auto) 0.51 K/uL Eosinophils # (Auto) 0.04 K/uL Basophils # (Auto) 0.02 K/uL RDW Standard Deviation 78.7 fL RDW Coefficient of Variation 24.3 % Immature Granulocyte % (Auto) 0.2 % Immature Granulocyte # (Auto) 0.01 K/uL Echinocytes 1+ Schistocytes 1+ Erythrocyte Sedimentation Rate 25 mm/hr Prothrombin Time 10.7 SECONDS Prothromb Time International Ratio 1.0 Activated Partial Thromboplast Time 27.7 SECONDS Partial Thromboplastin Ratio 1.1 Venous Blood pH 7.27 Venous Blood Partial Pressure CO2 46 mmHg Venous Blood Partial Pressure O2 32 mmHg Venous Blood HCO3 21 mmol/L Venous Blood Oxygen Saturation < 60.0 % Venous Blood Base Excess -5.8 mEq/L Sodium Level 135 mmol/L Potassium Level 5.0 mmol/L Chloride Level 109 mmol/L Carbon Dioxide Level 19 mmol/L Anion Gap 7.0 mmol/L Blood Urea Nitrogen 29 mg/dl Creatinine 1.30 mg/dl Est Creatinine Clear Calc Drug Dose 30.3 ml/min Estimated GFR () 59.3 Estimated GFR (Non- 51.2 BUN/Creatinine Ratio 22.2 Random Glucose 104 mg/dl Calcium Level 9.3 mg/dl Phosphorus Level 4.0 mg/dl Magnesium Level 1.7 mg/dl Total Bilirubin 0.3 mg/dl Aspartate Amino Transf (AST/SGOT) 33 U/L Alanine Aminotransferase (ALT/SGPT) 32 U/L Alkaline Phosphatase 90 U/L Total Creatine Kinase 100 U/L 39 U/L Creatine Kinase MB 5.2 ng/ml 2.7 ng/ml Creatine Kinase MB Ratio 5.2 6.9 Troponin I 0.049 ng/ml C-Reactive Protein < 0.29 mg/dl Pro-B-Type Natriuretic Peptide 280 pg/ml Total Protein 7.4 gm/dl Albumin 3.0 gm/dl Globulin 4.4 gm/dl Albumin/Globulin Ratio 0.7 Amylase Level 58 U/L Lipase 218 U/L Bedside Lactic Acid Venous 0.58 mmol/L Urine Color DK YELLOW Urine Appearance CLEAR Urine pH 5.0 Urine Specific [place] 1.025 Urine Protein TRACE Urine Glucose (UA) NEG Urine Ketones NEG Urine Occult Blood 2+ Urine Nitrite NEG Urine Bilirubin NEG Urine Urobilinogen NEG Urine Leukocyte Esterase NEG Urine WBC (Auto) 1-5 /hpf Urine RBC (Auto) 5-10 /hpf Urine Hyaline Casts (Auto) >30 /lpf Urine Epithelial Cells (Auto) >30 /lpf Urine Bacteria (Auto) NEG Urine Pathogenic Casts 0-3 GRANULAR CASTS /lpf Urine Yeast (Auto) PRESENT Test 09/27/16 05:52 Sodium Level 137 mmol/L Potassium Level 4.3 mmol/L Chloride Level 111 mmol/L Carbon Dioxide Level 19 mmol/L Anion Gap 7.0 mmol/L Blood Urea Nitrogen 22 mg/dl Creatinine 0.92 mg/dl Est Creatinine Clear Calc Drug Dose 43.1 ml/min Estimated GFR () 90.1 Estimated GFR (Non- 77.7 BUN/Creatinine Ratio 23.8 Random Glucose 116 mg/dl Calcium Level 8.3 mg/dl Magnesium Level 1.8 mg/dl Troponin I 0.065 ng/ml Assessment and Plan 80 year old male with colon cancer s/p ileostomy after small bowel obstruction admission on 09/26/2016 for dehydration, light headedness with high output ostomy Dehydration / hypotension, obviously from high output ostomy High Output ostomy stool culture pending, c. diff negative, Consult surgery, consulted GI, Continue NSS @ 200 MLS/HR, watch lytes, hold PRN lasix, continue Imodium, follow -up stool culture Elevated troponin which trends higher in the setting of better creatinine level , associated with bradycardia - known significant CAD - Likely from troponin leakage because of hypotensive - no chest pain, transfer to telemetry for better monitoring, cardiology consultation Hypomagnesemia - trend and replace as necessary VTE Prophylaxis - chemical prophylaxis deferred as possible discharge tomorrow and recent surgery. If admission for longer consider chemical prophylaxis Discussed with patient about CODE STATUS he requests okay CPR but no intubation , patient's son in bedside, conversation with this with family and patient's son Continued [facility] stay due to: multiple IV medications needed Discharge planning: home
--- NOTE | 2016-09-27 11:47 | Gastrointestinal Consultation ---
Gastrointestinal Consultation Date of Consultation: Sep 27, 2016 History of Present Illness Patient is a 80 year old male w/ PMH significant for dyslipidemia, GERD, T2DM, hypothyroidism, BRENDAN who was initially evaluated by [facility] for BRENDAN in April who had arranged EGD/Colonoscopy 05/22/16. EGD was unremarkable and colonoscopy adenocarcinoma in the sigmoid colon, circumferential, nearly obstructing with inability to transverse. He was was found to have distant disease on PET with lesions in lung and liver with subsequent Stage IV disease and He was started on xeloda - had significant mucositis after Cycle 1, cycle 2 was delayed and restarted with dose reduction on 09/01/16 with last treatment occurring then, and then had brenda obstruction to the level of the TI/cecum with likely metachronous lesion noted. He went for a diverting loop ileostomy in the beginning of September without issues, and was discharged last week. He states ostomy output has been 13 to 15L per day since he was discharged. He denies any pain. but began to have lightheadedness, and hypotension and was given IVF in Oncology, but failed to respond, therefore was tx to ER last vicente. In ER was found to have electrolyte derangements, including hyponatremia and low Mg, and low BP, in 90's and was admitted. Since adm, he generally feels well, states he has a big appetite, no pain, vomiting. He wants to go home. Past Medical/Surgical History Medical Problems: (1) Dehydration Status: Acute (2) Dehydration Status: Acute (3) Diarrhea Status: Acute (4) High output ileostomy Status: Acute (5) Hypotension Status: Acute (6) Metabolic acidosis Status: Acute (7) Small bowel obstruction Status: Acute (8) Vomiting Status: Acute Social History Problems: (1) History of bowel resection Status: Acute Family History Cancer Diabetes mellitus FHx: heart disease FHx: kidney disease/stones Social History Smoking Status: Former Smoker Alcohol Use: none Drug Use: none Marital Status: Housing Status: lives with significant other Occupation Status: 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) Allergies Coded Allergies: Clarithromycin (Verified Allergy, Severe, "MAJOR RXN" ?, 09/26/16) Penicillins (Verified Allergy, Severe, "MAJOR RXN" ?, 09/26/16) Sulfa Antibiotics (Verified Allergy, Severe, "SULFA DRUGS": "MAJOR RXN"?, 09/26/16) Cephalosporins (Verified Allergy, Unknown, ?, 09/26/16) Diltiazem (Verified Allergy, Unknown, FLUSHING, 09/26/16) Morphine (Verified Allergy, Unknown, N/V, 09/26/16) Streptokinase (Verified Allergy, Unknown, ?, 09/26/16) Sulfonylureas (Verified Allergy, Unknown, RASH, 09/26/16) Codeine (Verified Adverse Reaction, Mild, NAUSEA / VOMITING, 09/26/16) Current Medications Home Meds and Scripts Medications Dose Route/Sig Max Daily Dose Days Date Category Dose Instructions Vitamin D 35255 Unit (Ergocalciferol) 50,000 Unit Cap 50,000 Unit PO 2XWK 06/24/16 Reported THURSDAY & THURSDAY Micro-K Ext Rel (Potassium Chloride) 10 Meq Capcr 10 Meq PO DAILY 06/24/16 Reported Lasix (Furosemide) 20 Mg Tab 20 Mg PO DAILY 06/24/16 Reported Mylanta Gas Minis (Simethicone) 41.667 Mg Chw 311 Mg PO DIRECTED 06/12/16 Reported Flomax (Tamsulosin Hcl) 0.4 Mg Cap 0.4 Mg PO DAILY 06/12/16 Reported Prilosec (Omeprazole) 20 Mg Cap 1 Cap PO DAILY 30 09/24/15 Rx Levothyroxine Sodium 25 Mcg Tab 50 Mcg PO DAILY 08/09/14 Reported Iron (Ferrous Sulfate) 325 Mg Tab 325 Mg PO DAILY 06/03/13 Reported Nitrostat (Nitroglycerin) 0.4 Mg Tab 0.4 Mg UT PRN 11/06/08 Reported Zocor (Simvastatin) 40 Mg Tab 40 Mg PO QPM 11/06/08 Reported Review of Systems Constitutional: + see HPI Eyes: No see HPI, No worsening of vision, No eye pain, No redness, No discharge , No diplopia, No problem reported ENT: No see HPI, No hearing loss, No unusual epistaxis, No nasal symptoms, No sore throat, No tinnitus, No dental problems, No trouble swallowing, No pain on swallowing, No problem reported Respiratory: No see HPI, No cough, No sputum, No wheezing, No shortness of breath, No dyspnea on exertion, No dyspnea at rest, No hemoptysis, No problem reported Cardiac: No see HPI, No chest pain, No orthopnea, No PND, No edema, No claudication, No palpitations, No problem reported Musculoskeletal: No see HPI, No joint pain, No muscle pain, No swelling, No calf pain, No problem reported Heme: + see HPI Endo: No see HPI, No fatigue, No excessive thirst, No excessive urination, No problem reported Physical Exam Date Time Temp Pulse Resp B/P (MAP) Pulse Ox O2 Delivery O2 Flow Rate FiO2 09/27/16 10:00 36.4 55 18 99/61 (74) 100 Room Air 09/27/16 09:56 36.2 48 18 98 09/27/16 08:52 Room Air 09/27/16 07:28 36.2 48 18 86/49 (61) 98 Room Air 09/27/16 04:25 36.6 53 18 99/51 (67) 99 Room Air 09/27/16 00:00 36.4 60 18 93/58 99 Room Air 09/26/16 23:43 52 18 99/58 98 09/26/16 22:59 52 18 99/58 98 Room Air 09/26/16 21:14 69 16 97/57 96 Room Air 09/26/16 19:00 65 14 96/69 97 Room Air 09/26/16 18:35 94 Room Air 09/26/16 17:51 36.5 56 17 85/55 90 Room Air General Appearance: + cachetic, + thin Neck: supple Respiratory/Chest: chest non-tender, lungs clear Cardiovascular: regular rate, rhythm, no edema, no gallop Abdomen: normal bowel sounds, non tender Extremities: normal range of motion, non-tender Neurologic/Psych: manager digital II-XII nml as tested Laboratory Results Last 24 Hours Test 09/26/16 18:52 09/26/16 18:54 09/26/16 19:30 09/26/16 20:54 White Blood Count 6.16 K/uL Red Blood Count 4.16 M/uL Hemoglobin 12.1 g/dL Hematocrit 36.2 % Mean Corpuscular Volume 87.0 fL Mean Corpuscular Hemoglobin 29.1 pg Mean Corpuscular Hemoglobin Concent 33.4 g/dl Platelet Count 307 K/uL Mean Platelet Volume 9.8 fL Neutrophils (%) (Auto) 52.0 % Lymphocytes (%) (Auto) 38.6 % Monocytes (%) (Auto) 8.3 % Eosinophils (%) (Auto) 0.6 % Basophils (%) (Auto) 0.3 % Neutrophils # (Auto) 3.20 K/uL Lymphocytes # (Auto) 2.38 K/uL Monocytes # (Auto) 0.51 K/uL Eosinophils # (Auto) 0.04 K/uL Basophils # (Auto) 0.02 K/uL RDW Standard Deviation 78.7 fL RDW Coefficient of Variation 24.3 % Immature Granulocyte % (Auto) 0.2 % Immature Granulocyte # (Auto) 0.01 K/uL Echinocytes 1+ Schistocytes 1+ Erythrocyte Sedimentation Rate 25 mm/hr Prothrombin Time 10.7 SECONDS Prothromb Time International Ratio 1.0 Activated Partial Thromboplast Time 27.7 SECONDS Partial Thromboplastin Ratio 1.1 Venous Blood pH 7.27 Venous Blood Partial Pressure CO2 46 mmHg Venous Blood Partial Pressure O2 32 mmHg Venous Blood HCO3 21 mmol/L Venous Blood Oxygen Saturation < 60.0 % Venous Blood Base Excess -5.8 mEq/L Sodium Level 135 mmol/L Potassium Level 5.0 mmol/L Chloride Level 109 mmol/L Carbon Dioxide Level 19 mmol/L Anion Gap 7.0 mmol/L Blood Urea Nitrogen 29 mg/dl Creatinine 1.30 mg/dl Est Creatinine Clear Calc Drug Dose 30.3 ml/min Estimated GFR () 59.3 Estimated GFR (Non- 51.2 BUN/Creatinine Ratio 22.2 Random Glucose 104 mg/dl Calcium Level 9.3 mg/dl Phosphorus Level 4.0 mg/dl Magnesium Level 1.7 mg/dl Total Bilirubin 0.3 mg/dl Aspartate Amino Transf (AST/SGOT) 33 U/L Alanine Aminotransferase (ALT/SGPT) 32 U/L Alkaline Phosphatase 90 U/L Total Creatine Kinase 100 U/L 39 U/L Creatine Kinase MB 5.2 ng/ml 2.7 ng/ml Creatine Kinase MB Ratio 5.2 6.9 Troponin I 0.049 ng/ml C-Reactive Protein < 0.29 mg/dl Pro-B-Type Natriuretic Peptide 280 pg/ml Total Protein 7.4 gm/dl Albumin 3.0 gm/dl Globulin 4.4 gm/dl Albumin/Globulin Ratio 0.7 Amylase Level 58 U/L Lipase 218 U/L Bedside Lactic Acid Venous 0.58 mmol/L Urine Color DK YELLOW Urine Appearance CLEAR Urine pH 5.0 Urine Specific [place] 1.025 Urine Protein TRACE Urine Glucose (UA) NEG Urine Ketones NEG Urine Occult Blood 2+ Urine Nitrite NEG Urine Bilirubin NEG Urine Urobilinogen NEG Urine Leukocyte Esterase NEG Urine WBC (Auto) 1-5 /hpf Urine RBC (Auto) 5-10 /hpf Urine Hyaline Casts (Auto) >30 /lpf Urine Epithelial Cells (Auto) >30 /lpf Urine Bacteria (Auto) NEG Urine Pathogenic Casts 0-3 GRANULAR CASTS /lpf Urine Yeast (Auto) PRESENT Test 09/27/16 05:52 Sodium Level 137 mmol/L Potassium Level 4.3 mmol/L Chloride Level 111 mmol/L Carbon Dioxide Level 19 mmol/L Anion Gap 7.0 mmol/L Blood Urea Nitrogen 22 mg/dl Creatinine 0.92 mg/dl Est Creatinine Clear Calc Drug Dose 43.1 ml/min Estimated GFR () 90.1 Estimated GFR (Non- 77.7 BUN/Creatinine Ratio 23.8 Random Glucose 116 mg/dl Calcium Level 8.3 mg/dl Magnesium Level 1.8 mg/dl Troponin I 0.065 ng/ml Impression Patient is a 80 year old male with Stage IV colon Ca, admitted with Failure to thrive secondary to volume depletion with high output ostomy Plan -Volume depletion from what appears to be high output ostomy. -Has had one dose of imodium, which would be first line therapy, other therapies would be, in order, Imodium, WelChol or Colestid, Lomotil, Octreotide. -Given he has only had one dose, attempts at conventional therapy with oral meds should be explored, and if develops worse symptoms, then short term or residential octreotide should be utilitzed. -Will follow and goal of appropriate outpt regimen should be goal prior to D/C -Monitor I/O's, advance diet as tolerated, Monitor and replete electrolytes. -Will follow, call with questions
[2016-09-27] MEDS: BOOST VANILLA PO SCH ×4 (14:36→19:00)
--- NOTE | 2016-09-27 15:49 | CARDIOLOGY CONSULTATION ---
DATE OF CONSULTATION: 09/27/2016 TIME: 14:59 p.m. ORDERING PHYSICIAN: Dr. Keating. REASON FOR CONSULTATION: Elevated troponin, bradycardia and a history of coronary artery disease. PRIMARY TIPPLE SUPERVISOR: Dr. Jeremiah Franklin. HISTORY OF PRESENT ILLNESS: Mr. English is a very pleasant 80-year-old gentleman with a history significant for CAD, status post inferior myocardial infarction and sudden cardiac in 1990, hypertension, dyslipidemia, and stage IV colon cancer, who recently had an ostomy placed. He presented to [facility] following hematology/oncology appointment yesterday when his blood pressure was reportedly 68/46 mmHg. He was having high output from his ostomy and he was felt to be hypovolemic/dehydrated. He reportedly admitted that at that time, he had been dizzy, especially when standing up over the past few days, but to me today, he states that he was completely asymptomatic. He states he has not had any lightheadedness, syncope or near syncope, chest pain, shortness of breath, orthopnea, palpitations or edema. He denies melena, hematochezia, hematuria, or other bleeding. He has been eating and drinking, but states that he does have a lot of fluid coming out of his ostomy estimating approximately 80% of the output is liquid rather than stool. Since presentation, he has been evaluated by gastroenterology as well as Dr. Ricardo from surgery. It was noted on telemetry that his heart rate is in the 40s and 50s and he remains asymptomatic. He has been ambulating in his room without symptoms. While watching telemetry, his heart rate does fluctuate at times up to the 60s, but mostly he seems to be in the 50s. As an outpatient, he was taking 25 mg of metoprolol succinate, but his last dose was 2 days ago, a little over 48 hours ago. In the outpatient setting, his heart rate would occasionally be in the 50s, but mostly in the 60s. He does not exercise regularly, but does stay active and recently went shopping without exertional symptoms. REVIEW OF SYSTEMS: As above and otherwise review of systems were unremarkable. PAST MEDICAL HISTORY: 1. Stage IV colon cancer. 2. Status post colostomy in September of 2016. 3. Hypertension. 4. Dyslipidemia. 5. Coronary artery disease, status post myocardial infarction in 1990 with reported cardiac arrest at that time. He has not had a cardiac catheterization per his recollection. 6. Hypothyroidism. 7. Iron deficiency anemia. 8. Nephrolithiasis. 9. Reported type 2 diabetes; however, he denies having diabetes and was taken off of metformin. 10. Vitamin B12 deficiency. 11. Vitamin D deficiency. 12. Arthritis. 13. BPH. 14. GERD. 15. Status post appendectomy. CURRENT MEDICATIONS: Include simvastatin 40 mg daily, Synthroid 50 mcg daily, Imodium 2 mg p.o. q. 6 hours, Protonix 40 mg daily, normal saline 200 mL per hour IV. LISTED ALLERGIES: CEPHALOSPORINS, CLARITHROMYCIN, CODEINE, DILTIAZEM, MORPHINE, PENICILLIN, STREPTOKINASE, AND SULFA ANTIBIOTICS. SOCIAL HISTORY: He quit smoking in 1990. No significant alcohol. He is . His and youngest daughter is present at the bedside. He has 3 sons and 3 daughters. FAMILY HISTORY: Son has CAD and PCI. Brother with CABG. PHYSICAL EXAMINATION: VITAL SIGNS: Temperature 36.6 degrees, heart rate 47 beats per minute, respiratory rate 20, and blood pressure 82/83 mmHg. Systolic blood pressure has mostly been in the 90s since presentation. Oxygen saturation 100% on room air. I's and O's positive 1.6 liters yesterday and so far today, he is also positive approximately 1.6 liters. Weight 48.4 kg. GENERAL: No acute distress. He is alert and oriented. HEENT: Anicteric sclerae. NECK: No appreciable JVD. No bruits. Normal carotid upstrokes bilaterally. CARDIAC EXAMINATION: PMI was not palpable. There was no ventricular heave. Regular, normal S1 and S2. No audible murmurs, rubs or gallops. LUNGS: Clear to auscultation bilaterally without wheezes, rales or rhonchi. ABDOMEN: Soft, nontender, and nondistended. Normoactive bowel sounds. Colostomy noted. EXTREMITIES: No cyanosis or edema. 2+ radial pulses bilaterally. 2+ dorsalis pedis pulses bilaterally. No palpable cords. PSYCHIATRIC: Affect appears appropriate. C. diff negative. Blood cultures pending. Urine culture negative. LABORATORY DATA: White blood cell count 6.16, hemoglobin 12.1, and platelets 307. ESR 25. Sodium 137, potassium 4.3, BUN 22, and creatinine 0.92 down from 1.3 upon presentation. Peak troponin 0.065. Initial troponin 0.049. TSH was ordered and is 6.67. Magnesium 1.8. AST 33. INR 1. Chest x-ray reported as cardiomegaly and emphysema. Extensive chronic interstitial thickening of parenchymal changes similar to previous study. ECG personally reviewed from 09/26/2016 at 18:34, sinus bradycardia at 55 beats per minute. RBBB. LAFB. Possible anterior infarct. Telemetry personally reviewed. Sinus bradycardia. There were some brief episodes of what appears to be junctional rhythm. Most recent echocardiogram on 07/14/2016. Report was reviewed. Normal LV size, wall motion, systolic function. EF 55%-60%. Type 1 diastolic dysfunction. No significant valvular abnormalities. This was done in the outpatient setting. Inpatient and outpatient chart reviewed. ASSESSMENT AND PLAN: 1. Bradycardia: He has sinus bradycardia and did have some intermittent junctional rhythm. He is completely asymptomatic. Continue to hold beta paula therapy. His last dose was a little over 48 hours ago. He was asked to walk with nursing staff and nursing staff was asked to watch his heart rate. This will be to test his chronotropic response. No indication for pacemaker at this time. TSH was added on. He is slightly hypothyroid. 2. Elevated troponins: They are slightly elevated and are not diagnostic of myocardial infarction. He did not present with acute coronary syndrome or angina. Likely secondary to prolonged hypotension. No ischemic evaluation warranted at this time in this asymptomatic gentleman, who has stage IV colon cancer, which appears to be noncurable according to his daughter. 3. Hypotension: Thought to be secondary to hypovolemia due to high output from his ostomy. As per primary service. He is receiving IV fluids. Continue to hold beta paula. 4. Coronary artery disease: He has reported coronary artery disease with inferior infarct in 1990. He does not recall ever undergoing a cardiac catheterization. No indication for cardiac catheterization at this time. He does take aspirin as an outpatient 81 mg daily. If no contraindications, recommend restarting aspirin 81 mg daily. 5. Disposition: No further cardiology evaluation recommended at this time unless he should demonstrate symptoms from bradycardia. If he remains hospitalized on 09/29/2016, Dr. Franklin, his primary infantryman, can meet with him at that time. Otherwise, call for any other questions or concerns. He should follow up with Dr. Franklin as an outpatient. The patient's care has been discussed with Dr. Keating of the primary hospitalist service as well as with nursing staff. NOE
[2016-09-27] MEDS ORDERED: SIMVASTATIN 40 MG TAB PO SCH (21:00)
[2016-09-28] MEDS: SODIUM CHLORIDE 0.9% 1000ML 1,000 ML IV SCH ×3 (00:47→12:42)
[2016-09-28] MEDS: LOPERAMIDE LIQUID 1MG/7.5ML 120ML BTL PO SCH ×3 (00:48→12:40)
[2016-09-28 04:00] VITALS: BP 94/57; PULSE 57; TEMP 36.6; O2SAT 99
[2016-09-28] MEDS: LEVOTHYROXINE 50 MCG TAB PO SCH (05:41)
[2016-09-28 06:54] LABS: BASO % 0.4 %; BASO ABS # 0.02 K/uL (0-0.2); EOS % 1.4 %; HEMATOCRIT 31.7 % (42-52); IG% 0.2 %; LYMPH % 31.8 %; LYMPH ABS # 1.55 K/uL (1.2-3.4); MEAN CELL VOLUME 87.8 fL (80-100); MEAN CORPUSCULAR HEMOGLOBIN 28.5 pg (25-34); MEAN CORPUSCULAR HGB CONC 32.5 g/dl (32-36); MEAN PLATELET VOLUME 9.6 fL (7.4-10.4); MONO % 9.6 %; NEUT % 56.6 %; PLATELET COUNT 216 K/uL (130-400); RED BLOOD COUNT 3.61 M/uL (4.7-6.1); WHITE BLOOD COUNT 4.88 K/uL (4.8-10.8)
[2016-09-28 07:00] VITALS: BP 94/57; PULSE 57; TEMP 36.6; O2SAT 99
--- NOTE | 2016-09-28 07:11 | Surgery Progress Note ---
Surgery Progress Note Date of Service Sep 28, 2016. Subjective having less watery output using Imodium improved fluid status Objective Vital Signs: Date Time Temp Pulse Resp B/P (MAP) Pulse Ox O2 Delivery O2 Flow Rate FiO2 09/28/16 04:00 Room Air 09/28/16 04:00 36.6 57 17 94/57 (69) 99 Room Air 09/28/16 00:00 Room Air 09/27/16 23:51 36.6 55 17 92/46 (61) 98 Room Air 09/27/16 20:00 Room Air 09/27/16 19:38 36.3 52 18 121/63 (82) 98 Room Air 09/27/16 16:00 100 Room Air 09/27/16 15:51 36.7 46 20 90/50 (63) 99 Room Air 09/27/16 12:00 100 Room Air 09/27/16 10:51 36.6 47 20 82/43 (56) 99 09/27/16 10:00 36.4 55 18 99/61 (74) 100 Room Air 09/27/16 09:56 36.2 48 18 98 09/27/16 08:52 Room Air 09/27/16 07:28 36.2 48 18 86/49 (61) 98 Room Air Abdomen: soft Laboratory Results: Results Past 24 Hours Test 09/27/16 12:17 09/27/16 12:43 09/28/16 06:27 Range/Units Creatine Kinase MB Ratio 0-3.0 Creatine Kinase MB 5.4 0.5-3.6 ng/ml Troponin I 0.065 0-0.045 ng/ml Thyroid Stimulating Hormone (TSH) 6.670 0.300-4.500 uIu/ml White Blood Count 4.88 4.8-10.8 K/uL Red Blood Count 3.61 4.7-6.1 M/uL Hemoglobin 10.3 14.0-18.0 g/dL Hematocrit 31.7 42-52 % Mean Corpuscular Volume 87.8 80-100 fL Mean Corpuscular Hemoglobin 28.5 25-34 pg Mean Corpuscular Hemoglobin Concent 32.5 32-36 g/dl Platelet Count 216 130-400 K/uL Mean Platelet Volume 9.6 7.4-10.4 fL Neutrophils (%) (Auto) 56.6 % Lymphocytes (%) (Auto) 31.8 % Monocytes (%) (Auto) 9.6 % Eosinophils (%) (Auto) 1.4 % Basophils (%) (Auto) 0.4 % Neutrophils # (Auto) 2.76 1.4-6.5 K/uL Lymphocytes # (Auto) 1.55 1.2-3.4 K/uL Monocytes # (Auto) 0.47 0.11-0.59 K/uL Eosinophils # (Auto) 0.07 0-0.5 K/uL Basophils # (Auto) 0.02 0-0.2 K/uL RDW Standard Deviation 79.5 36.4-46.3 fL RDW Coefficient of Variation 24.4 11.5-14.5 % Immature Granulocyte % (Auto) 0.2 % Immature Granulocyte # (Auto) 0.01 0.00-0.02 K/uL Assessment & Plan 09/28/16- Continue to assess ileostomy output using Imodium still very loose but less. check labs. Overall he has no acute changes
[2016-09-28 07:41] LABS: ALKALINE PHOSPHATASE 66 U/L (45-117); ALT/SGPT 20 U/L (12-78); AST/SGOT 21 U/L (15-37); BLOOD UREA NITROGEN 11 mg/dl (7-18); BUN/CREATININE RATIO 17.2 (10-20); CALCIUM 7.1 mg/dl (8.5-10.1); CARBON DIOXIDE 20 mmol/L (21-32); CHLORIDE 115 mmol/L (98-107); CREATININE 0.64 mg/dl (0.60-1.40); GLUCOSE 96 mg/dl (70-99); MAGNESIUM 1.4 mg/dl (1.8-2.4); POTASSIUM 4.4 mmol/L (3.5-5.1); SODIUM 141 mmol/L (136-145)
[2016-09-28 07:48] LABS: ANISOCYTOSIS PRESENT; COMPLETE YES; ECHINOCYTES 1+; POIKILOCYTOSIS PRESENT
[2016-09-28 08:09] VITALS: BP 104/63; PULSE 59; TEMP 36.2; O2SAT 95
[2016-09-28] MEDS: POTASSIUM CHLORIDE 10 MEQ TABCR PO SCH (08:59)
[2016-09-28] MEDS: FERROUS SULFATE 325 MG TAB PO SCH (09:00)
[2016-09-28] MEDS: MAGNESIUM SULFATE 1GM / D5W 1 GM in PREMIXED IN D5W 100 ML IV SCH ×2 (09:00→10:05)
[2016-09-28] MEDS ORDERED: MAGNESIUM OXIDE 400 MG TAB PO SCH (09:00)
[2016-09-28] MEDS: PANTOprazole SOD 40 MG TAB PO SCH (09:00)
[2016-09-28 09:03] LABS: THYROID STIMULATING HORMONE 9.73 uIu/ml (0.300-4.500)
[2016-09-28 09:04] LABS: T3 TOTAL 0.64 ng/ml (0.60-1.81); THYROXINE (T4) 9.1 mcg/dl (4.5-10.9)
[2016-09-28] MEDS: BOOST VANILLA PO SCH ×2 (10:00)
[2016-09-28 11:00] VITALS: BP 107/63; PULSE 51; TEMP 36.1; O2SAT 95
--- NOTE | 2016-09-28 11:14 | Gastroenterology Progress Note ---
Progress Note Date of Service: Sep 28, 2016 Subjective Pt evaluation today including: conversation w/ patient, conversation w/ family Feels better, output has firmed almost to approriate consistency, no lightheadedness when walking, wants to go home. Review of Systems Constitutional: No see HPI, No fever, No chills, No sweats, No weight loss, No weakness, No fatigue, No problem reported Eyes: No see HPI, No worsening of vision, No eye pain, No redness, No discharge , No diplopia, No problem reported ENT: No see HPI, No hearing loss, No unusual epistaxis, No nasal symptoms, No sore throat, No tinnitus, No dental problems, No trouble swallowing, No pain on swallowing, No problem reported Respiratory: No see HPI, No cough, No sputum, No wheezing, No shortness of breath, No dyspnea on exertion, No dyspnea at rest, No hemoptysis, No problem reported Cardiac: No see HPI, No chest pain, No orthopnea, No PND, No edema, No claudication, No palpitations, No problem reported Abdomen: No see HPI, No pain, No nausea, No vomiting, No diarrhea, No constipation, No GI bleeding, No dysphagia, No odynophagia, No acolic stools, No jaundice, No dark urine, No problem reported Musculoskeletal: No see HPI, No joint pain, No muscle pain, No swelling, No calf pain, No problem reported Medications Current Inpatient Medications Medications (Trade) Dose Ordered Sig/Lenka Route Start Time Stop Time Status Last Admin Dose Admin Ondansetron HCl (Zofran Inj) 4 mg Q6H PRN IV 09/26/16 22:45 10/26/16 22:44 Miscellaneous (Iv Fluids Completed) 1 ea PRN PRN N/A 09/26/16 23:00 09/26/17 22:59 Sodium Chloride 1,000 ml @ 200 mls/hr Q5H IV 09/27/16 05:00 10/27/16 04:59 09/28/16 05:41 200 MLS/HR Levothyroxine Sodium (Synthroid Tab) 50 mcg DAILYBB PO 09/27/16 06:30 10/27/16 06:29 09/28/16 05:41 50 MCG Nitroglycerin (Nitrostat Tab) 0.4 mg PRN UT 09/27/16 05:00 10/27/16 04:59 Potassium Chloride (Klor-Con M10) 10 meq DAILY PO 09/27/16 08:00 10/27/16 07:59 09/28/16 08:59 10 MEQ Simvastatin (Zocor Tab) 40 mg QPM PO 09/27/16 21:00 10/27/16 20:59 09/27/16 20:38 40 MG Tamsulosin HCl (Flomax Cap) 0.4 mg DAILY PO 09/27/16 08:00 10/27/16 07:59 Future Hold 09/27/16 08:23 0.4 MG Ferrous Sulfate (Feosol Tab) 325 mg QAM PO 09/27/16 08:00 10/27/16 07:59 09/28/16 09:00 325 MG Pantoprazole Sodium (Protonix Tab) 40 mg QAM PO 09/27/16 08:00 10/27/16 07:59 09/28/16 09:00 40 MG Loperamide HCl (Imodium A-D Liquid) 2 mg Q6 PO 09/27/16 18:00 10/27/16 17:59 09/28/16 05:41 2 MG Enteral Nutritional Formula (Boost) 1 can TID@1000,1400,1900 PO 09/27/16 14:00 10/27/16 13:59 09/27/16 19:00 1 CAN Magnesium Oxide (Mag-Ox Tab) 400 mg BID PO 09/28/16 09:00 10/28/16 08:59 09/28/16 08:59 400 MG Objective Vital Signs Date Time Temp Pulse Resp B/P (MAP) Pulse Ox O2 Delivery O2 Flow Rate FiO2 09/28/16 08:09 36.2 59 20 104/63 (77) 95 Room Air 09/28/16 04:00 Room Air 09/28/16 04:00 36.6 57 17 94/57 (69) 99 Room Air 09/28/16 00:00 Room Air 09/27/16 23:51 36.6 55 17 92/46 (61) 98 Room Air 09/27/16 20:00 Room Air 09/27/16 19:38 36.3 52 18 121/63 (82) 98 Room Air 09/27/16 16:00 100 Room Air 09/27/16 15:51 36.7 46 20 90/50 (63) 99 Room Air 09/27/16 12:00 100 Room Air Physical Exam General Appearance: WD/WN, + cachetic, + thin ENT: normal ENT inspection Neck: supple Respiratory/Chest: chest non-tender, lungs clear Cardiovascular: regular rate, rhythm, no edema Abdomen: normal bowel sounds, non tender, soft, + pertinent finding (rlq ostomy ) Extremities: normal range of motion Laboratory Results Last 24 Hours Test 09/27/16 12:17 09/27/16 12:43 09/28/16 06:27 09/28/16 08:10 Creatine Kinase MB Ratio Creatine Kinase MB 5.4 ng/ml Troponin I 0.065 ng/ml Thyroid Stimulating Hormone (TSH) 6.670 uIu/ml 9.730 uIu/ml White Blood Count 4.88 K/uL Red Blood Count 3.61 M/uL Hemoglobin 10.3 g/dL Hematocrit 31.7 % Mean Corpuscular Volume 87.8 fL Mean Corpuscular Hemoglobin 28.5 pg Mean Corpuscular Hemoglobin Concent 32.5 g/dl Platelet Count 216 K/uL Mean Platelet Volume 9.6 fL Neutrophils (%) (Auto) 56.6 % Lymphocytes (%) (Auto) 31.8 % Monocytes (%) (Auto) 9.6 % Eosinophils (%) (Auto) 1.4 % Basophils (%) (Auto) 0.4 % Neutrophils # (Auto) 2.76 K/uL Lymphocytes # (Auto) 1.55 K/uL Monocytes # (Auto) 0.47 K/uL Eosinophils # (Auto) 0.07 K/uL Basophils # (Auto) 0.02 K/uL RDW Standard Deviation 79.5 fL RDW Coefficient of Variation 24.4 % Immature Granulocyte % (Auto) 0.2 % Immature Granulocyte # (Auto) 0.01 K/uL Poikilocytosis PRESENT Anisocytosis PRESENT Echinocytes 1+ Sodium Level 141 mmol/L Potassium Level 4.4 mmol/L Chloride Level 115 mmol/L Carbon Dioxide Level 20 mmol/L Anion Gap 6.0 mmol/L Blood Urea Nitrogen 11 mg/dl Creatinine 0.64 mg/dl Est Creatinine Clear Calc Drug Dose 73.2 ml/min Estimated GFR () 106.4 Estimated GFR (Non- 91.8 BUN/Creatinine Ratio 17.2 Random Glucose 96 mg/dl Calcium Level 7.1 mg/dl Magnesium Level 1.4 mg/dl Total Bilirubin 0.2 mg/dl Direct Bilirubin < 0.1 mg/dl Aspartate Amino Transf (AST/SGOT) 21 U/L Alanine Aminotransferase (ALT/SGPT) 20 U/L Alkaline Phosphatase 66 U/L Total Protein 5.2 gm/dl Albumin 2.0 gm/dl Free Thyroxine 1.23 ng/dl Thyroxine (T4) 9.1 mcg/dl Free Triiodothyronine 1.83 pg/ml Total Triiodothyronine 0.64 ng/ml Assessment and Plan Impression Patient is a 80 year old male with Stage IV colon Ca, admitted with Failure to thrive secondary to volume depletion with high output ostomy Plan -Volume depletion from what appears to be high output ostomy. -Continue scheduled imodium, which would be first line therapy, other therapies would be, in order, Imodium, WelChol or Colestid, Lomotil, Octreotide but seems to be doing well, soluable fiber is also an option -Will follow and goal of appropriate outpt regimen should be goal prior to D/C but wants to go today, seems appropriate and follow up with Michele on Thu, José Miguel Raya this week -Monitor I/O's, advance diet as tolerated, Monitor and replete electrolytes. -Will follow, call with questions
[2016-09-28] MEDS ORDERED: LOPERAMIDE LIQUID 1MG/7.5ML 120ML BTL PO SCH (13:30)
[2016-09-28] MEDS ORDERED: Enteral Nutrition Formula PO (14:12)
[2016-09-28] MEDS ORDERED: SYN25 PO (14:12)
[2016-09-28] MEDS ORDERED: MGNO400 PO (14:12)
[2016-09-28] MEDS ORDERED: [UNRECOGNIZED DRUG - OTHER] PO (14:12)
--- NOTE | 2016-09-28 14:13 | Discharge Instructions ---
Discharge Instructions Date of Service Sep 28, 2016. Admission Reason for Admission: Dehydration, High Output Ileostomy, Hypotension Discharge Discharge Diagnosis / Problem: dehydration, light headedness with high output ostomy Discharge Goals Goal(s): Decrease discomfort, Improve function, Increase independence, Improve disease control, Improve nutritional status, Learn about illness, Diagnostic testing, Therapeutic intervention, Prevent Disease Progression, Specific goals Activity Recommendations Activity Limitations: as noted below . Instructions / Follow-Up Instructions / Follow-Up you have light headedness with high output ostomy better you have Dehydration / hypotension, obviously from high output ostomy, is better you can use Imodium 4 mg up to 4 time a dya if oyu need for liquid stool keep appointments with surgeon and GI Recommended to keep appointment with oncology too Your thyroid testing which include TSH was elevated at the 6.67, increase the dose of your thyroid medicine Call PCP if feel dizziness, dehydration, or significant high output from ostomy bag - you need to follow up with your primary care physician in 1 week, - take medication as instructed, never overdose or any misuse, or take with alcohol, because misuse of medicine may cause organ damage or , call your primary care physician if have questions of medicaitons. - call your primary care physician OR go to local emergency room if has any fever/chill, chest pain, shortness of breathing, nausea/vomiting/abdominal pain , facial droop/slurry speech/local weakness, or if has any questions. - fall precaution - diet as instructed - you need to follow up with your subspecialists Current Hospital Diet Patient's current hospital diet: Regular Diet, Low Fiber Diet Discharge Diet Recommended Diet: Regular Diet Procedures Procedures Performed: no Pending Studies Studies pending at discharge: no Medical Emergencies . Who to Call and When: Medical Emergencies: If at any time you feel your situation is an emergency, please call 911 immediately. . Non-Emergent Contact Non-Emergency issues call your: Primary Care Provider, [employer], Surgeon . . "Provider Documentation" section prepared by Florentino Keating. . VTE Core Measure Inpt VTE Proph given/why not?: Treatment not indicated (likely admission overnight only)
--- NOTE | 2016-09-28 17:16 | Discharge Summary ---
Discharge Summary Date of Service Sep 28, 2016. Discharge Summary Admission Date: Sep 26, 2016 at 23:16 Discharge Date: Sep 28, 2016 Discharge Disposition: Home Principal Diagnosis: light headedness with high output ostomy Problems/Secondary Diagnoses: Dehydration / hypotension, obviously from high output ostomy, is better hypothyroidism colon canc er with liver metastasis Immunizations: Have You Had Influenza Vaccine: Yes Influenza Vaccine Date: Nov 03, 2012 History of Tetanus Vaccine?: UTD History of Pneumococcal: Unknown History of Hepatitis B Vaccine: Unknown Procedures: No Consultations: GI consult and surgical consult Medication Reconciliation New Medications: Levothyroxine Sodium (Synthroid) 25 Mcg Tab 12.5 MCG PO DAILYBB for 30 Days, TAB Loperamide HCl (Loperamide HCl) 1 Mg/7.5 Ml Soln 2 MG PO Q6 PRN for liquid stool for 16 Days you can use 2 tab each time and up to 4 times a day Magnesium Oxide (Magnesium-Oxide) 400 Mg Tab 400 MG PO BID for 15 Days, #30 TAB [Enteral Nutrition Formula] () 1 CAN LIQD 1 CAN PO TID@1000,1400,1900 for 30 Days Continued Medications: Ergocalciferol (Vitamin D 58735 Unit) 50,000 Unit Cap 49106 UNIT PO 2XWK, CAP THURSDAY & THURSDAY Ferrous Sulfate (Iron) 325 Mg Tab 325 MG PO DAILY Levothyroxine Sodium (Levothyroxine Sodium) 25 Mcg Tab 50 MCG PO DAILY, #30 Nitroglycerin (Nitrostat) 0.4 Mg Tab 0.4 MG UT PRN Omeprazole (Prilosec) 20 Mg Cap 1 CAP PO DAILY for 30 Days, #30 CAP 5 Refills Potassium Chloride (Micro-K Ext Rel) 10 Meq Capcr 10 MEQ PO DAILY, CAP Simethicone (Mylanta Gas Minis) 41.667 Mg Chw 311 MG PO DIRECTED Simvastatin (Zocor) 40 Mg Tab 40 MG PO QPM Tamsulosin Hcl (Flomax) 0.4 Mg Cap 0.4 MG PO DAILY, CAP Discontinued Medications: Furosemide (Lasix) 20 Mg Tab 20 MG PO DAILY, TAB Discharge Exam Generalized weakness, however feel better, reported ostomy bag possible more thickened stool Review of Systems: Constitutional: + weakness, + fatigue, No fever, No chills, No sweats, No weight loss, No problem reported Eyes: No worsening of vision, No eye pain, No redness, No discharge, No diplopia, No problem reported ENT: No hearing loss, No unusual epistaxis, No nasal symptoms, No sore throat, No tinnitus, No dental problems, No trouble swallowing, No problem reported Respiratory: No cough, No sputum, No wheezing, No shortness of breath, No dyspnea on exertion, No dyspnea at rest, No hemoptysis, No problem reported Cardiovascular: No chest pain, No orthopnea, No PND, No edema, No claudication, No palpitations, No problem reported Abdomen: + diarrhea (possible because liquid stool in the ostomy back), No pain, No nausea, No vomiting, No constipation, No GI bleeding, No problem reported Genitourinary - Male: No hematuria, No dysuria, No urinary frequency, No urinary urgency, No urinary hesitancy, No urinary retention, No urinary incontinence, No penile discharge, No lesions, No impotence, No problem reported Neurologic: No memory loss, No paralysis, No weakness, No numbness/tingling , No vertigo, No balance problems, No problem reported Psychiatric: No depression symptoms, No anhedonism, No anxiety, No insomnia , No substance abuse, No problem reported Endocrine: No fatigue, No excessive thirst, No excessive urination, No problem reported Hematologic / Lymphatic: No abnormal bleeding/bruising, No clotting problems , No swollen lymph nodes, No night sweats, No problem reported Integumentary: No rash, No itch, No new/changing skin lesions, No color change, No bleeding, No problem reported Physical Exam: General Appearance: + cachetic, + thin, + pertinent finding (frail) Eyes: normal inspection, PERRL ENT: normal ENT inspection, hearing grossly normal Neck: supple, no adenopathy Respiratory/Chest: chest non-tender, + decreased breath sounds Cardiovascular: regular rate, rhythm, no edema, no gallop, no JVD Abdomen / GI: soft, + pertinent finding (ostomy bag has mixed liquid stool and solid stool) Extremities: normal inspection, no calf tenderness, normal capillary refill , no pedal edema, normal range of motion 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 diff negative, Has been on NSS @ 200 MLS/HR, Blood pressure improved, he has been up and walk no dizziness, Elevated troponin which trends higher in the setting of better creatinine level , likely from hypotension was demanding ischemia in the cardiac muscle associated with bradycardia, bradycardia improved - known significant CAD - Likely from troponin leakage because of hypotensive - no chest pain, transfer to telemetry for better monitoring, cardiology consultation Patient's condition mild improving however I feel not ready to go home yet, because he was on 200 male per hour IV fluid infusion, which helping him to be in the reasonable blood pressure level In the same time I found an elevated TSH level, increased the no us several seen 62.5 g by mouth daily, Family also reported patient may be depressed, which I feel may also contribute to provide hypothyroidism Patient really want to go home, family wanted to take him home to, I feel his medical condition not ready to discharge him., After more discussion with patient and family, and GI team, patient, and stage colon cancer with liver metastasis, which make him very poor prognosis. Family and patient both expressed that he has limited time to be alive, and want to be stay more at home and was family, I agree with that and want to be supportive. I did offer patient and family the possible one night hospital stay, which will be able to better watch of the fluid levels, monitor lytes, allow levothyroxine new dose kicking in, and better watch his fluid level after decrease IV fluid, and if Imodium is not help some other medicines can be tried hospital for high-volume output. the other benefit also include offered to talk to palliative care, discussed about the goal of care,. Family understand about this was still 1 to take patient home, I encouraged him to follow-up with PCP, call to PCP if have any questions. Hypomagnesemia - trend and replace as necessary VTE Prophylaxis - chemical prophylaxis deferred as possible discharge tomorrow and recent surgery. If admission for longer consider chemical prophylaxis Discussed with patient about CODE STATUS he requests okay CPR but no intubation , patient's son in bedside, conversation with this with family and patient's son Instructions / Follow-Up you have light headedness with high output ostomy better you have Dehydration / hypotension, obviously from high output ostomy, is better you can use Imodium 4 mg up to 4 time a dya if oyu need for liquid stool keep appointments with surgeon and GI Recommended to keep appointment with oncology too Your thyroid testing which include TSH was elevated at the 6.67, increase the dose of your thyroid medicine Call PCP if feel dizziness, dehydration, or significant high output from ostomy bag - you need to follow up with your primary care physician in 1 week, - take medication as instructed, never overdose or any misuse, or take with alcohol, because misuse of medicine may cause organ damage or , call your primary care physician if have questions of medicaitons. - call your primary care physician OR go to local emergency room if has any fever/chill, chest pain, shortness of breathing, nausea/vomiting/abdominal pain , facial droop/slurry speech/local weakness, or if has any questions. - fall precaution - diet as instructed - you need to follow up with your subspecialists Total Time Spent: Greater than 30 minutes This includes examination of the patient, discharge planning, medication reconciliation, and communication with other providers. Discharge Instructions Please refer to the electronic Patient Visit Report (Discharge Instructions) for additional information. Additional Copies To Joon Dimas MD; Sonido Riojas M.D.
[2016-09-29] MEDS ORDERED: LEVOTHYROXINE 25 MCG TAB PO SCH (06:00)
[2016-09-29] MEDS ORDERED: LEVOTHYROXINE 50 MCG TAB PO SCH (06:00)
== END 2016-09-28 14:57 | disposition home or self-care (01) | DRG 315 ==
LOC: C.EDB 17:50 → C.4E 23:16 → ENRESERV 23:33 → C.2T 09-27 09:51
PROVIDERS: ADMIT Internal Medicine; ATTEND Hospitalist
DX: I95.89 Other hypotension (principal); C18.9 Malignant neoplasm of colon, unspecified; C78.7 Secondary malignant neoplasm of liver and intrahepatic bile duct; I24.8 Other forms of acute ischemic heart disease; E87.2 Acidosis; R64 Cachexia; E86.0 Dehydration; E03.9 Hypothyroidism, unspecified; E83.42 Hypomagnesemia; R19.7 Diarrhea, unspecified; I25.10 Atherosclerotic heart disease of native coronary artery without angina pectoris; I25.2 Old myocardial infarction; I11.9 Hypertensive heart disease without heart failure; E78.00 Pure hypercholesterolemia, unspecified; D50.9 Iron deficiency anemia, unspecified; K21.9 Gastro-esophageal reflux disease without esophagitis; Z93.2 Ileostomy status; Z79.899 Other long term (current) drug therapy; Z87.891 Personal history of nicotine dependence; Z82.49 Family history of ischemic heart disease and other diseases of the circulatory system; Z83.3 Family history of diabetes mellitus; Z84.1 Family history of disorders of kidney and ureter

== ENCOUNTER 2016-10-14 15:58 | Emergency (ER) | payer OTHER ==
[~2016-10-14] VITALS: Ht 165.1 cm; Wt 54.1 kg
[~2016-10-14 15:58] MED LIST changes: -ASPI81TA28 PO; -CAPE150T PO; -LEVO50TA6 PO; -LOSA50TA6 PO; -MAGN400T6 PO; -NUTR-7 PO; -ONDA8TAB6 PO; -PRLSR20 PO; -XLD/500 PO; -[UNRECOGNIZED DRUG - CODE] PO
[2016-10-14 16:06] VITALS: TEMP 36.6; Ht 165.1 cm; Wt 54.1 kg
[2016-10-14] MEDS ORDERED: SODIUM CHLORIDE 0.9% 500ML 500 ML IV STA ×2 (16:52→17:44)
--- NOTE | 2016-10-14 17:22 | EMERGENCY ROOM VISIT NOTE ---
History First contact with patient: 17:06 Chief Complaint: ABNORMAL LABS Stated Complaint: HIGH LEVELS OF POTASSIUM- PHYSICIAN REFERRED History of Present Illness The patient is a 80 year old male with stage IV colon cancer (under Dr José Miguel Tolbert), recurrent SBO and diverting high output ostomy who presents to the Emergency Room with abnormal labs taken earlier today. He had some routine labs taken at the [facility] heme/onc office today which showed a potassium of 6.1. He is taking potassium supplements and Boost drinks. He denies any chest pain, shortness of breath or palpitations. He reports his ostomy has been working normally for him (previously has been high output). He does note that they struggled to get his labs in the office today requiring multiple lab draws. Review of Systems All systems reviewed and otherwise acutely negative. Past Medical/Surgical History Medical Problems: (1) Colon cancer (2) Coronary artery disease (3) Hypercholesteremia (4) Hypertension (5) Kidney stones (6) Myocardial infarct (7) Pleural effusion (8) SBO (small bowel obstruction) (9) Vertigo Family History Cancer Diabetes mellitus FHx: heart disease FHx: kidney disease/stones Social History Smoking Status: Former Smoker Alcohol Use: none Drug Use: none Marital Status: Housing Status: lives with significant other Occupation Status: retired Current/Historical Medications Scheduled Ergocalciferol (Vitamin D 42504 Unit), 50,000 UNIT PO 2XWK Ferrous Sulfate (Iron), 325 MG PO DAILY Levothyroxine Sodium (Levothyroxine Sodium), 50 MCG PO DAILY Levothyroxine Sodium (Synthroid), 12.5 MCG PO DAILYBB Magnesium Oxide (Magnesium-Oxide), 400 MG PO BID Nitroglycerin (Nitrostat), 0.4 MG UT PRN Nutritional Supplements (Boost), 1 CAN PO BID Omeprazole (Prilosec), 1 CAP PO DAILY Potassium Chloride (Micro-K Ext Rel), 10 MEQ PO DAILY Simethicone (Mylanta Gas Minis), 311 MG PO DIRECTED Simvastatin (Zocor), 40 MG PO QPM Tamsulosin Hcl (Flomax), 0.4 MG PO DAILY Scheduled PRN Loperamide HCl (Loperamide HCl), 2 MG PO Q6 PRN for liquid stool Physical Exam Vital Signs Date Time Temp Pulse Resp B/P (MAP) Pulse Ox O2 Delivery O2 Flow Rate FiO2 9/5/17 18:01 86 13 111/59 92 Room Air 10/14/16 17:01 55 10/14/16 16:06 36.6 63 18 92/40 97 Room Air Physical Exam General Appearance: no apparent distress, + cachetic Neck: supple, no JVD, trachea midline Respiratory/Chest: chest non-tender, lungs clear, normal breath sounds, no respiratory distress, no accessory muscle use Cardiovascular: regular rate, rhythm, + systolic murmur (loudest in apex) Abdomen / GI: normal bowel sounds, non tender, soft, + pertinent finding ( ostomy bag with light brown liquid stool) Back: no CVA tenderness Extremities: no calf tenderness, normal capillary refill, + pedal edema (1+ at ankles equal b/l) Neurologic/Psych: alert, normal mood/affect, oriented x 3 Medical Decision & Procedures Laboratory Results 10/14/16 17:16 Red Blood Count 3.57, Mean Corpuscular Volume 90.5, Mean Corpuscular Hemoglobin 29.1, Mean Corpuscular Hemoglobin Concent 32.2, Mean Platelet Volume 9.5, Neutrophils (%) (Auto) 51.5, Lymphocytes (%) (Auto) 37.7, Monocytes (%) (Auto) 9.0, Eosinophils (%) (Auto) 1.3, Basophils (%) (Auto) 0.4, Neutrophils # (Auto) 3.62, Lymphocytes # (Auto) 2.65, Monocytes # (Auto) 0.63, Eosinophils # (Auto) 0.09, Basophils # (Auto) 0.03 10/14/16 17:16 Test 10/14/16 17:16 10/14/16 19:48 White Blood Count 7.03 K/uL (4.8-10.8) Red Blood Count 3.57 M/uL (4.7-6.1) Hemoglobin 10.4 g/dL (14.0-18.0) Hematocrit 32.3 % (42-52) Mean Corpuscular Volume 90.5 fL (80-100) Mean Corpuscular Hemoglobin 29.1 pg (25-34) Mean Corpuscular Hemoglobin Concent 32.2 g/dl (32-36) Platelet Count 316 K/uL (130-400) Mean Platelet Volume 9.5 fL (7.4-10.4) Neutrophils (%) (Auto) 51.5 % Lymphocytes (%) (Auto) 37.7 % Monocytes (%) (Auto) 9.0 % Eosinophils (%) (Auto) 1.3 % Basophils (%) (Auto) 0.4 % Neutrophils # (Auto) 3.62 K/uL (1.4-6.5) Lymphocytes # (Auto) 2.65 K/uL (1.2-3.4) Monocytes # (Auto) 0.63 K/uL (0.11-0.59) Eosinophils # (Auto) 0.09 K/uL (0-0.5) Basophils # (Auto) 0.03 K/uL (0-0.2) RDW Standard Deviation 73.7 fL (36.4-46.3) RDW Coefficient of Variation 22.3 % (11.5-14.5) Immature Granulocyte % (Auto) 0.1 % Immature Granulocyte # (Auto) 0.01 K/uL (0.00-0.02) Anisocytosis PRESENT Ovalocytes 1+ Est Creatinine Clear Calc Drug Dose 40.3 ml/min Estimated GFR () 72.6 Estimated GFR (Non- 62.6 BUN/Creatinine Ratio 39.4 (10-20) Calcium Level 9.5 mg/dl (8.5-10.1) Magnesium Level 1.8 mg/dl (1.8-2.4) Total Bilirubin 0.3 mg/dl (0.2-1) Direct Bilirubin < 0.1 mg/dl (0-0.2) Aspartate Amino Transf (AST/SGOT) 23 U/L (15-37) Alanine Aminotransferase (ALT/SGPT) 23 U/L (12-78) Alkaline Phosphatase 79 U/L (45-117) Troponin I 0.054 ng/ml (0-0.045) Total Protein 7.4 gm/dl (6.4-8.2) Albumin 3.1 gm/dl (3.4-5.0) Bedside Hemoglobin 9.9 g/dl (14.0-18.0) Bedside Hematocrit 29 % (42-52) Bedside Sodium 139 mEq/L (135-144) Bedside Potassium 4.8 mEq/L (3.3-5.0) Bedside Chloride 110 mEq/L (101-112) Bedside Total CO2 20 mEq/l (24-31) Anion Gap 15.0 mmol/L (16-25) Bedside Blood Urea Nitrogen 36 mg/dl (7-18) Bedside Creatinine 1.0 mg/dl (0.6-1.3) Bedside Glucose (other) 60 mg/dl (70-99) Bedside Ionized Calcium (Helga) 1.32 mmol/l (1.12-1.32) Medications Administered Medications (Trade) Dose Ordered Sig/Lenka Route Start Time Stop Time Status Last Admin Dose Admin Sodium Chloride 500 ml @ 999 mls/hr Q31M STAT IV 10/14/16 16:52 10/14/16 17:22 DC 10/14/16 17:17 999 MLS/HR Insulin Human Regular 10 units/ Syringe 10 ml @ 20 mls/min NOW STAT IV 10/14/16 17:44 10/14/16 17:50 DC 10/14/16 18:10 20 MLS/MIN Dextrose (Dextrose 50% 50ML Syringe) 50 ml NOW STAT IV 10/14/16 17:44 10/14/16 17:50 DC 10/14/16 18:10 50 ML Sodium Bicarbonate (Sodium Bicarbonate 8.4% Inj) 50 ml NOW STAT IV 10/14/16 17:44 10/14/16 17:50 DC 10/14/16 18:10 50 ML Sodium Chloride 500 ml @ 999 mls/hr Q31M STAT IV 10/14/16 17:44 10/14/16 18:14 DC 10/14/16 18:10 999 MLS/HR Sodium Polystyrene Sulfonate (Kayexalate Susp) 15 gm NOW STAT PO 10/14/16 19:25 10/14/16 19:26 DC 10/14/16 19:55 15 GM ECG Indication: other (hyperkalemia) Rate (beats per minute): 48 Rhythm: sinus bradycardia Findings: peaked T-waves (although appears consistent with previous EKG), left axis deviation, other (incomplete right bundle branch block) Change: no significant change (Sep 26 2016) ED Course 16:52 Full history and examination performed by myself 17:[address] Scott who separately performed history and examination 17:50 Reassessed patient and discussed need to stay as inpatient due to hyperkalemia 18:[address] Reed ([facility] Hospitalist) who will evaluate the patient for admission Medical Decision Prior records/ancillary studies reviewed. Triage Nursing notes reviewed. The patient's history was concerning for hyperkalemia. Differential diagnosis: Etiologies such as cardiac dysrhythmia, increased potassium intake, acute renal failure as well as others were entertained. Physical examination: As above. Ostomy appears to be working. No change from his baseline. ER treatment provided: IV hydration with normal saline, 1000 ml. No shortness of breath after initial 500 ml After hyperkalemia was confirmed with POC labs Insulin 10 internation units IV with 50ml 50% Dextrose 1 amp Bicarb Diagnostics interpretation by me: ECG: sinus bradycardia with peaked T waves although this is similar to previous EKGs without hyperkalemia The labs revealed a POC potassium 6.5, Cr 1.2 (up from 0.64 Sep 28) Consultation: A consultation was placed with the [facility] hospitalist. The case was discussed and diagnostics were reviewed. The patient was evaluated in the ER for further treatment. It appears the patient has hyperkalemia most likely secondary to increased intake. He also appears to be dehydrated. He was evaluated by the hospitalist team and decided if after treatment his potassium <5.5 he could be discharged home. Repeat potassium POC was 4.8 therefore he was discharged. The patient and his family were informed about the findings as listed above. All questions were answered. Medication Reconcilliation Current Medication List: was personally reviewed by me Consults Time Called: 17:56 Consulting Physician: Dr Reed ([facility] [place] [facility] Hospitalist) Returned Call: 18:02 Patient was seen and evaluate by hospitalist team. Advised to repeat potassium after treatment and discharge if <5.5. Impression Primary Impression: Hyperkalemia Departure Information Dispostion Home / Self-Care Condition FAIR Referrals Sonido Riojas M.D. (PCP) Patient Instructions My [facility] Additional Instructions You were diagnosed with hyperjkalemia. This was treated in the ER with insulin and Kayexalate. This is most likely secondary to potassium intake in your Boost drinks and potassium tablet. Please stop taking the Boost with potassium and stop your potassium supplementation. You should have your potassium level repeated by your primary care provider or oncologist in 48 hours. Drink more clear liquids for the next 3 to 4 days. If prescribed a prescription pain medication, take as directed for additional pain relief. Do not drink alcohol or drive while taking prescription pain medication. Make a follow-up appointment with your family doctor for continued care and treatment. If you have fevers, chest pain, difficulty breathing, recurrent vomiting or diarrhea, come back to the Emergency Department. Resident Tracking Resident Involvement: Resident Care Provided Care Provided: Adult ED
[2016-10-14 17:27] LABS: BASO % 0.4 %; BASO ABS # 0.03 K/uL (0-0.2); EOS % 1.3 %; HEMATOCRIT 32.3 % (42-52); IG% 0.1 %; LYMPH % 37.7 %; LYMPH ABS # 2.65 K/uL (1.2-3.4); MEAN CELL VOLUME 90.5 fL (80-100); MEAN CORPUSCULAR HEMOGLOBIN 29.1 pg (25-34); MEAN CORPUSCULAR HGB CONC 32.2 g/dl (32-36); MEAN PLATELET VOLUME 9.5 fL (7.4-10.4); NEUT % 51.5 %; PLATELET COUNT 316 K/uL (130-400); RED BLOOD COUNT 3.57 M/uL (4.7-6.1); WHITE BLOOD COUNT 7.03 K/uL (4.8-10.8)
[2016-10-14 17:44] LABS: ISTAT CREATININE 1.2 mg/dl (0.6-1.3); ISTAT HEMOGLOBIN 10.9 g/dl (14.0-18.0); ISTAT IONIZED CALCIUM 1.38 mmol/l (1.12-1.32)
[2016-10-14] MEDS ORDERED: DEXTROSE 50% 50 ML SYR IV STA (17:44)
[2016-10-14] MEDS ORDERED: SODIUM BICARB 8.4% INJ 50 MEQ/50 ML SYR IV STA (17:44)
[2016-10-14] MEDS ORDERED: INSULIN HUMAN REGULAR PER UNIT 10 UNITS in SYRINGE 9.9 ML IV STA (17:44)
[2016-10-14 17:46] LABS: ANISOCYTOSIS PRESENT; COMPLETE YES; OVALOCYTES 1+
[2016-10-14] MEDS ORDERED: NUTR-7 PO (18:14)
[2016-10-14 18:46] LABS: ALKALINE PHOSPHATASE 79 U/L (45-117); ALT/SGPT 23 U/L (12-78); AST/SGOT 23 U/L (15-37); BLOOD UREA NITROGEN 43 mg/dl (7-18); BUN/CREATININE RATIO 39.4 (10-20); CALCIUM 9.5 mg/dl (8.5-10.1); CARBON DIOXIDE 24 mmol/L (21-32); CHLORIDE 110 mmol/L (98-107); GLUCOSE 128 mg/dl (70-99); MAGNESIUM 1.8 mg/dl (1.8-2.4); POTASSIUM 6.3 mmol/L (3.5-5.1); SODIUM 138 mmol/L (136-145)
[2016-10-14] MEDS ORDERED: FAMOTIDINE IV INJ 20 MG in DEXTROSE 5% 100ML 100 ML IV STA (19:15)
[2016-10-14] MEDS ORDERED: METHYLPREDNISOLONE 125 MG VIAL IV STA (19:15)
[2016-10-14] MEDS ORDERED: SODIUM POLYST. SULF SUSP 15G/60ML PO STA (19:25)
[2016-10-14 20:01] LABS: ISTAT HEMOGLOBIN 9.9 g/dl (14.0-18.0); ISTAT IONIZED CALCIUM 1.32 mmol/l (1.12-1.32)
--- NOTE | 2016-10-14 20:06 | Medical Consult ---
Consultation Date of Consultation: Oct 14, 2016. Attending Physician: Dr. Reed Reason for Consultation: Hyperkalemia History of Present Illness Patient is a pleasant 80 y/o male, with PMHx of stage IV colon cancer s/p ostomy , CAD s/p ME, hypercholesteremia, HTN, kidney stones, vertigo, iron deficiency anemia, T2DM, hypothyroidism, and GERD, who presented to the ED because of hyperkalemia on outpatient labs. Hospitalist team was consulted for possible admission. Patient denies any complaints- states he feels at baseline as far as his health. Patient and family would like to avoid admission if possible. POC K was 6.5. Patient was treated w/ IV NSS bolus x2, sodium bicarbonate, insulin, D5 , and Kayexalate. Repeat K 4.8. Patient denies any fever, chills, sweats, lightheadedness, dizziness, vision changes, CP, palpitations, edema, SOB, wheezing, cough, abdominal pain, nausea, vomiting, diarrhea, urinary symptoms, melena, numbness/tingling, weakness, muscle/joint pain, anxiety/depression, active bleeding, or new skin discoloration/changes. Past Medical/Surgical History Medical Problems: IV colon cancer s/p ostomy CAD s/p ME hypercholesteremia HTN kidney stones vertigo iron deficiency anemia T2DM hypothyroidism GERD Social History Problems: (1) History of bowel resection Status: Acute Family History Cancer Diabetes mellitus FHx: heart disease FHx: kidney disease/stones Social History Smoking Status: Former Smoker Drug Use: none Marital Status: Housing Status: lives with significant other Occupation Status: retired Allergies Coded Allergies: Clarithromycin (Verified Allergy, Severe, "MAJOR RXN" ?, 10/14/16) Penicillins (Verified Allergy, Severe, "MAJOR RXN" ?, 10/14/16) Sulfa Antibiotics (Verified Allergy, Severe, "SULFA DRUGS": "MAJOR RXN"?, 10/14/16) Cephalosporins (Verified Allergy, Unknown, ?, 10/14/16) Diltiazem (Verified Allergy, Unknown, FLUSHING, 10/14/16) Morphine (Verified Allergy, Unknown, N/V, 10/14/16) Streptokinase (Verified Allergy, Unknown, ?, 10/14/16) Sulfonylureas (Verified Allergy, Unknown, RASH, 10/14/16) Codeine (Verified Adverse Reaction, Mild, NAUSEA / VOMITING, 10/14/16) Home Medications Reported Home Medications Medications Dose Route/Sig Max Daily Dose Days Date Category Dose Instructions Boost (Nutritional Supplements) 1 Liq Liq 1 Can PO BID 10/14/16 Reported Synthroid (Levothyroxine Sodium) 25 Mcg Tab 12.5 Mcg PO DAILYBB 30 09/28/16 Rx Loperamide HCl 1 Mg/7.5 Ml Soln 2 Mg PO Q6 PRN 16 09/28/16 Rx you can use 2 tab each time and up to 4 times a day Magnesium-Oxide (Magnesium Oxide) 400 Mg Tab 400 Mg PO BID 15 09/28/16 Rx Vitamin D 83971 Unit (Ergocalciferol) 50,000 Unit Cap 50,000 Unit PO 2XWK 06/24/16 Reported THURSDAY & THURSDAY Micro-K Ext Rel (Potassium Chloride) 10 Meq Capcr 10 Meq PO DAILY 06/24/16 Reported Mylanta Gas Minis (Simethicone) 41.667 Mg Chw 311 Mg PO DIRECTED 06/12/16 Reported Flomax (Tamsulosin Hcl) 0.4 Mg Cap 0.4 Mg PO DAILY 06/12/16 Reported Prilosec (Omeprazole) 20 Mg Cap 1 Cap PO DAILY 30 09/24/15 Rx Levothyroxine Sodium 25 Mcg Tab 50 Mcg PO DAILY 08/09/14 Reported Iron (Ferrous Sulfate) 325 Mg Tab 325 Mg PO DAILY 06/03/13 Reported Nitrostat (Nitroglycerin) 0.4 Mg Tab 0.4 Mg UT PRN 11/06/08 Reported Zocor (Simvastatin) 40 Mg Tab 40 Mg PO QPM 11/06/08 Reported Current Inpatient Medications Medications Administered Medications (Trade) Dose Ordered Sig/Lenka Route Start Time Stop Time Status Last Admin Dose Admin Sodium Chloride 500 ml @ 999 mls/hr Q31M STAT IV 10/14/16 16:52 10/14/16 17:22 DC 10/14/16 17:17 999 MLS/HR Insulin Human Regular 10 units/ Syringe 10 ml @ 20 mls/min NOW STAT IV 10/14/16 17:44 10/14/16 17:50 DC 10/14/16 18:10 20 MLS/MIN Dextrose (Dextrose 50% 50ML Syringe) 50 ml NOW STAT IV 10/14/16 17:44 10/14/16 17:50 DC 10/14/16 18:10 50 ML Sodium Bicarbonate (Sodium Bicarbonate 8.4% Inj) 50 ml NOW STAT IV 10/14/16 17:44 10/14/16 17:50 DC 10/14/16 18:10 50 ML Sodium Chloride 500 ml @ 999 mls/hr Q31M STAT IV 10/14/16 17:44 10/14/16 18:14 DC 10/14/16 18:10 999 MLS/HR Physical Exam Date Time Temp Pulse Resp B/P (MAP) Pulse Ox O2 Delivery O2 Flow Rate FiO2 10/14/16 18:01 86 13 111/59 92 Room Air 10/14/16 17:01 55 10/14/16 16:06 36.6 63 18 92/40 97 Room Air General Appearance: no apparent distress, + thin (frail ) Head: normocephalic, atraumatic Eyes: normal inspection, PERRL ENT: hearing grossly normal Neck: supple Respiratory/Chest: lungs clear, no respiratory distress, no accessory muscle use Cardiovascular: regular rate, rhythm, + systolic murmur Abdomen/GI: normal bowel sounds, non tender, soft, + pertinent finding (ostomy ) Back: normal inspection Extremities/Musculoskelatal: no calf tenderness, no pedal edema Neurologic/Psych: alert, normal mood/affect, oriented x 3 Skin: normal color, warm/dry, no rash Laboratory Results Last 24 Hours Test 10/14/16 17:16 10/14/16 17:20 10/14/16 19:43 White Blood Count 7.03 K/uL Red Blood Count 3.57 M/uL Hemoglobin 10.4 g/dL Hematocrit 32.3 % Mean Corpuscular Volume 90.5 fL Mean Corpuscular Hemoglobin 29.1 pg Mean Corpuscular Hemoglobin Concent 32.2 g/dl Platelet Count 316 K/uL Mean Platelet Volume 9.5 fL Neutrophils (%) (Auto) 51.5 % Lymphocytes (%) (Auto) 37.7 % Monocytes (%) (Auto) 9.0 % Eosinophils (%) (Auto) 1.3 % Basophils (%) (Auto) 0.4 % Neutrophils # (Auto) 3.62 K/uL Lymphocytes # (Auto) 2.65 K/uL Monocytes # (Auto) 0.63 K/uL Eosinophils # (Auto) 0.09 K/uL Basophils # (Auto) 0.03 K/uL RDW Standard Deviation 73.7 fL RDW Coefficient of Variation 22.3 % Immature Granulocyte % (Auto) 0.1 % Immature Granulocyte # (Auto) 0.01 K/uL Anisocytosis PRESENT Ovalocytes 1+ Sodium Level 138 mmol/L Potassium Level 6.3 mmol/L Chloride Level 110 mmol/L Carbon Dioxide Level 24 mmol/L Anion Gap 4.0 mmol/L 13.0 mmol/L Blood Urea Nitrogen 43 mg/dl Creatinine 1.10 mg/dl Est Creatinine Clear Calc Drug Dose 40.3 ml/min Estimated GFR () 72.6 Estimated GFR (Non- 62.6 BUN/Creatinine Ratio 39.4 Random Glucose 128 mg/dl Calcium Level 9.5 mg/dl Magnesium Level 1.8 mg/dl Total Bilirubin 0.3 mg/dl Direct Bilirubin < 0.1 mg/dl Aspartate Amino Transf (AST/SGOT) 23 U/L Alanine Aminotransferase (ALT/SGPT) 23 U/L Alkaline Phosphatase 79 U/L Troponin I 0.054 ng/ml Total Protein 7.4 gm/dl Albumin 3.1 gm/dl Bedside Hemoglobin 10.9 g/dl Bedside Hematocrit 32 % Bedside Sodium 136 mEq/L Bedside Potassium 6.5 mEq/L Bedside Chloride 109 mEq/L Bedside Total CO2 21 mEq/l Bedside Blood Urea Nitrogen 41 mg/dl Bedside Creatinine 1.2 mg/dl Bedside Glucose (other) 128 mg/dl Bedside Ionized Calcium (Helga) 1.38 mmol/l Assessment & Plan Patient is a pleasant 80 y/o male, with PMHx of stage IV colon cancer s/p ostomy , CAD s/p ME, hypercholesteremia, HTN, kidney stones, vertigo, iron deficiency anemia, T2DM, hypothyroidism, and GERD, who presented to the ED because of hyperkalemia on outpatient labs. Hyperkalemia- RESOLVED: Treated w/ Kayexalate 15 gm, Insulin 10 u, Dextrose 50 ml, Sodium bicarbonate 50 ml, IV NSS x2 bolus Plan of care was discussed w/ patient/family- would like to avoid admission. Hyperkalemia was treated in ED and rechecked at 4.8 from 6.5. Mirtha Reed - medical attending Pt seen/examined in conjunction with the PA Labs, meds, records reviewed OE AAO x 2 S1,2R CTA - poor effort Colostomy in place - functional No confusion or AMS Following treatment - the pt's K decreased to 4.8 - spoke to family directly who are requesting DC - we will recommend DC of K supplements and then f/u K next wk Pt stable at DC - no related EKG changes Discussed above with ER attending
[2016-10-14 20:28] VITALS: BP 91/49; PULSE 64; O2SAT 96
--- NOTE | 2016-10-14 22:58 | EMERGENCY ROOM VISIT NOTE ---
ED Visit Note First contact with patient: 16:51 Resident Physician Supervision Note: Dr. Thor Irvin was resident physician during care of patient. I separately evaluated patient and did history and exam. I discussed the case with the resident and generally agree with the findings and plan. 80 yr old male with cancer who arrives for evaluation of abnormal K as outpatient. K elevation is real though EKG unchanged and he states he is in no distress. Likely a bit on dehydrated side. Suspect some dehydration leading to mild renal insufficiency which given recent increase in Ensure drink and his PO K has lead to acute hyperkalemia. With fluids and above much improved. He is feeling well and wishes to go home. Hospitalist evaluated patient and agree with outpatient monitoring. Stop K and Ensure and follow up K in 48 hours. RTED if worsening or other concerns. Diagnosis: Hyperkalemia Dehydration Documented By: Florentino Scott MD
== END 2016-10-14 20:28 | disposition home or self-care (01) ==
LOC: C.EDB 16:01
DX: E87.5 Hyperkalemia (principal); E86.0 Dehydration; C18.7 Malignant neoplasm of sigmoid colon; I25.10 Atherosclerotic heart disease of native coronary artery without angina pectoris; E78.00 Pure hypercholesterolemia, unspecified; I10 Essential (primary) hypertension; Z87.442 Personal history of urinary calculi; D50.9 Iron deficiency anemia, unspecified; I25.2 Old myocardial infarction; K56.60 Unspecified intestinal obstruction; Z80.9 Family history of malignant neoplasm, unspecified; E11.9 Type 2 diabetes mellitus without complications; Z83.3 Family history of diabetes mellitus; Z82.49 Family history of ischemic heart disease and other diseases of the circulatory system; Z84.1 Family history of disorders of kidney and ureter; Z87.891 Personal history of nicotine dependence; Z79.899 Other long term (current) drug therapy; E03.9 Hypothyroidism, unspecified

== ENCOUNTER → 2016-10-14 | Outpatient (CLI) | payer OTHER ==
[~2016-10-14] MED LIST changes: +ASPI81TA28 PO; +CAPE150T PO; +Enteral Nutrition Formula PO; -FURO-85 PO; -GLC/500 PO; +LEVO50TA6 PO; +LOSA50TA6 PO; +MAGN400T6 PO; +MGNO400 PO; +NUTR-7 PO; +ONDA8TAB6 PO; +PRLSR20 PO; +SYN25 PO; +XLD/500 PO; +[UNRECOGNIZED DRUG - CODE] PO; +[UNRECOGNIZED DRUG - OTHER] PO
[2016-10-14 10:41] LABS: BASO % 0.3 %; BASO ABS # 0.02 K/uL (0-0.2); EOS % 0.9 %; HEMATOCRIT 32.6 % (42-52); IG% 0.3 %; LYMPH % 34.9 %; LYMPH ABS # 2.77 K/uL (1.2-3.4); MEAN CELL VOLUME 90.3 fL (80-100); MEAN CORPUSCULAR HEMOGLOBIN 29.6 pg (25-34); MEAN PLATELET VOLUME 9.9 fL (7.4-10.4); MONO % 9.3 %; NEUT % 54.3 %; PLATELET COUNT 327 K/uL (130-400); RED BLOOD COUNT 3.61 M/uL (4.7-6.1); WHITE BLOOD COUNT 7.94 K/uL (4.8-10.8)
[2016-10-14 10:42] LABS: MEAN CORPUSCULAR HGB CONC 32.8 g/dl (32-36)
[2016-10-14 11:09] LABS: ANISOCYTOSIS PRESENT; COMPLETE YES; OVALOCYTES 1+
[2016-10-14 13:41] LABS: ALB/GLOB RATIO 0.7 (0.9-2); ALKALINE PHOSPHATASE 78 U/L (45-117); ALT/SGPT 22 U/L (12-78); AST/SGOT 25 U/L (15-37); BLOOD UREA NITROGEN 40 mg/dl (7-18); BUN/CREATININE RATIO 36.5 (10-20); CALCIUM 9.4 mg/dl (8.5-10.1); CARBON DIOXIDE 21 mmol/L (21-32); CHLORIDE 109 mmol/L (98-107); FERRITIN 163.5 ng/ml (8.0-388.0); GLUCOSE 89 mg/dl (70-99); POTASSIUM 6.1 mmol/L (3.5-5.1); SODIUM 135 mmol/L (136-145); TOTAL IRON BINDING CAPACITY 353 mcg/dl (250-450)
== END | disposition home or self-care (01) ==
LOC: C.LAB1850 09:55
PROVIDERS: ATTEND Internal Medicine Hematology & Oncology
DX: C18.7 Malignant neoplasm of sigmoid colon (principal)

== ENCOUNTER → 2016-10-16 | Outpatient (CLI) | payer OTHER ==
[~2016-10-16] MED LIST changes: +ASPI81TA28 PO; +CAPE150T PO; -Enteral Nutrition Formula PO; +LEVO50TA6 PO; +LOSA50TA6 PO; +MAGN400T6 PO; +NUTR-7 PO; +ONDA8TAB6 PO; +PRLSR20 PO; +XLD/500 PO; +[UNRECOGNIZED DRUG - CODE] PO
[2016-10-18 13:33] LABS: GLIADIN DEAMIDATED IgA AB 8 UNITS (<20); GLIADIN DEAMIDATED IgG AB 2 UNITS (<20); RETICULIN IgA AB Negative (Negative)
== END | disposition home or self-care (01) ==
LOC: C.LAB1850 09:59
PROVIDERS: ATTEND Family Medicine
DX: E87.5 Hyperkalemia (principal)

== ENCOUNTER → 2016-10-24 | Outpatient (CLI) | payer OTHER ==
--- NOTE | 2016-10-24 16:19 | DIAGNOSTIC IMAGING REPORT ---
VENOUS DOPPLER LWR EXT BILA CLINICAL HISTORY: 80 years-old Male presenting with BILATERAL EDEMA LOWER LEGS,CANCER PATIENT. TECHNIQUE: Real-time grayscale and color and spectral Doppler ultrasound imaging of the veins of the bilateral lower extremities was performed. Compression and augmentation were also utilized. COMPARISON: 06/17/2016. FINDINGS: Right: Common femoral vein: Patent. Femoral vein: Patent. Greater saphenous vein: Patent. Popliteal vein: Patent. Calf veins: Limited visualization. Left: Common femoral vein: Patent. Femoral vein: Patent. Greater saphenous vein: Patent. Popliteal vein: Patent. Calf veins: Limited visualization. Other: None. IMPRESSION: No evidence of deep venous thrombosis. Electronically signed by: Juwan Dodge M.D. 10/24/2016 4:17 PM Dictated Date/Time: 10/24/2016 4:15 PM
== END | disposition home or self-care (01) ==
LOC: C.ULTR 15:32
PROVIDERS: ATTEND Internal Medicine Hematology & Oncology
DX: C18.7 Malignant neoplasm of sigmoid colon (principal); R60.0 Localized edema

== ENCOUNTER → 2016-10-29 | Outpatient (CLI) | payer OTHER ==
[2016-10-29 14:40] LABS: BASO % 0.3 %; BASO ABS # 0.02 K/uL (0-0.2); COMPLETE YES; EOS % 0.3 %; HEMATOCRIT 31.4 % (42-52); IG% 0.3 %; LYMPH % 40.6 %; LYMPH ABS # 2.33 K/uL (1.2-3.4); MEAN CELL VOLUME 91.8 fL (80-100); MEAN CORPUSCULAR HEMOGLOBIN 29.2 pg (25-34); MEAN CORPUSCULAR HGB CONC 31.8 g/dl (32-36); MEAN PLATELET VOLUME 9.8 fL (7.4-10.4); MONO % 8.9 %; NEUT % 49.6 %; PLATELET COUNT 265 K/uL (130-400); RED BLOOD COUNT 3.42 M/uL (4.7-6.1); WHITE BLOOD COUNT 5.74 K/uL (4.8-10.8)
[2016-10-29 14:51] LABS: ALT/SGPT 19 U/L (12-78); BLOOD UREA NITROGEN 19 mg/dl (7-18); BUN/CREATININE RATIO 19.4 (10-20); CALCIUM 9.1 mg/dl (8.5-10.1); CARBON DIOXIDE 25 mmol/L (21-32); CHLORIDE 106 mmol/L (98-107); GLUCOSE 116 mg/dl (70-99); POTASSIUM 4.6 mmol/L (3.5-5.1); SODIUM 138 mmol/L (136-145)
[2016-10-29 15:01] LABS: ALB/GLOB RATIO 0.8 (0.9-2); ALKALINE PHOSPHATASE 89 U/L (45-117); AST/SGOT 24 U/L (15-37)
== END | disposition home or self-care (01) ==
LOC: C.LAB1850 12:58
PROVIDERS: ATTEND Internal Medicine Hematology & Oncology
DX: C18.7 Malignant neoplasm of sigmoid colon (principal)

== ENCOUNTER 2016-11-10 18:55 | Emergency (ER) | payer OTHER ==
[~2016-11-10] VITALS: Ht 167.6 cm; Wt 51.3 kg
[~2016-11-10 18:55] MED LIST changes: -ASPI81TA28 PO; -CAPE150T PO; -LEVO50TA6 PO; -LOSA50TA6 PO; -MAGN400T6 PO; -ONDA8TAB6 PO; -PRLSR20 PO; -XLD/500 PO; -[UNRECOGNIZED DRUG - CODE] PO
[2016-11-10 19:13] VITALS: TEMP 36.4; Ht 167.6 cm; Wt 51.3 kg
[2016-11-10] MEDS ORDERED: ASPI81TA28 PO (19:53)
[2016-11-10] MEDS ORDERED: LEVO50TA6 PO (19:56)
[2016-11-10] MEDS ORDERED: LEVO25TA5 PO (19:58)
[2016-11-10] MEDS ORDERED: PRLSR20 PO (20:02)
[2016-11-10] MEDS ORDERED: ONDA8TAB6 PO (20:03)
[2016-11-10] MEDS ORDERED: LOSA50TA6 PO (20:05)
[2016-11-10] MEDS ORDERED: [UNRECOGNIZED DRUG - CODE] PO (20:07)
[2016-11-10] MEDS ORDERED: SODIUM CHLORIDE 0.9% 1000ML 1,000 ML IV STA (20:11)
[2016-11-10] MEDS ORDERED: MAGN400T6 PO (20:11)
--- NOTE | 2016-11-10 20:15 | EMERGENCY ROOM VISIT NOTE ---
History Report prepared by Vance: Doc Contreras Under the Supervision of: Dr. Álvaro Graham M.D. First contact with patient: 19:31 Chief Complaint: ILLNESS Stated Complaint: ILEOSTOMY BAG OUT NEEDS LOOKED At History of Present Illness The patient is a 80 year old male who presents to the Emergency Room with complaints of increased ostomy output that began last night. He was referred to the ER by his PCP. Since last night, he has been having more stool output than usual. He describes it as green and watery as well. He denies any fevers, chest pain, shortness of breath, abdominal pain, nausea, vomiting, or any other symptoms. The patient states that he is good with changing his diet to accommodate his ostomy output. Source of History: patient Onset: last night Position: other (GI) Symptom Intensity: moderate Quality: other (Increased ostomy output) Timing: constant Associated Symptoms: No fevers, No chest pain, No SOB, No nausea, No vomiting, No abdominal pain Note: His output is green. Review of Systems See HPI for pertinent positives & negatives. A total of 10 systems reviewed and were otherwise negative. Past Medical & Surgical Medical Problems: (1) Colon cancer (2) Coronary artery disease (3) Hypercholesteremia (4) Hypertension (5) Kidney stones (6) Myocardial infarct (7) Pleural effusion (8) SBO (small bowel obstruction) (9) Vertigo Family History Cancer Diabetes mellitus FHx: heart disease FHx: kidney disease/stones Social History Smoking Status: Never Smoker Alcohol Use: none Drug Use: none Marital Status: Housing Status: lives with significant other Occupation Status: retired Current/Historical Medications Scheduled Aspirin (Aspirin Ec), 81 MG PO DAILY Capecitabine (Xeloda), 150 MG PO UD Capecitabine (Xeloda), 500 MG PO UD Ergocalciferol (Vitamin D 09726 Unit), 50,000 UNIT PO 2XWK Ferrous Sulfate (Iron), 325 MG PO DAILY Levothyroxine Sodium (Levothyroxine Sodium), 50 MCG PO DAILY Levothyroxine Sodium (Levothyroxine Sodium), 12.5 MCG PO DAILY Losartan Potassium (Cozaar), 50 MG PO DAILY Magnesium Oxide (Mag-Ox), 400 MG PO BID Nitroglycerin (Nitrostat), 0.4 MG UT PRN Nutritional Supplements (Boost), 1 CAN PO DAILY Omeprazole (Prilosec), 20 MG PO DAILY Simethicone (Mylanta Gas Minis), 311 MG PO DIRECTED Simvastatin (Zocor), 40 MG PO QPM Tamsulosin Hcl (Flomax), 0.4 MG PO DAILY Scheduled PRN Loperamide Hcl (Loperamide Hcl), 2 MG PO Q6H PRN for Diarrhea Ondansetron Hcl (Zofran), 8 MG PO Q8 PRN for Nausea Allergies Coded Allergies: Clarithromycin (Verified Allergy, Severe, "MAJOR RXN" ?, 10/14/16) Penicillins (Verified Allergy, Severe, "MAJOR RXN" ?, 10/14/16) Sulfa Antibiotics (Verified Allergy, Severe, "SULFA DRUGS": "MAJOR RXN"?, 10/14/16) Cephalosporins (Verified Allergy, Unknown, ?, 10/14/16) Diltiazem (Verified Allergy, Unknown, FLUSHING, 10/14/16) Morphine (Verified Allergy, Unknown, N/V, 10/14/16) Streptokinase (Verified Allergy, Unknown, ?, 10/14/16) Sulfonylureas (Verified Allergy, Unknown, RASH, 10/14/16) Codeine (Verified Adverse Reaction, Mild, NAUSEA / VOMITING, 10/14/16) Physical Exam Vital Signs Date Time Temp Pulse Resp B/P (MAP) Pulse Ox O2 Delivery O2 Flow Rate FiO2 11/10/16 21:51 76 20 102/60 97 Room Air 11/10/16 20:55 95 11/10/16 20:36 72 20 103/60 98 Room Air 11/10/16 19:13 36.4 84 22 106/68 97 Room Air Physical Exam GENERAL: Patient is a healthy-appearing well-nourished male HEAD: Normocephalic atraumatic EYES: Ocular movements intact pupils equal and react to light OROPHARYNX mucous membranes are moist no exudates present no erythema or edema present NECK: Supple no nuchal rigidity CHEST: Good equal expansion LUNGS: Clear and equal to auscultation CARDIAC: Normal S1 and S2 ABDOMEN: Soft nontender no guarding. Ostomy in place in the LLQ. BACK: No CVA tenderness EXTREMITIES: No pain upon palpation normal muscle strength in all groups no clubbing cyanosis or edema NEURO: Patient is following commands and answering questions appropriately. Alert and oriented x3 Cranial Nerves 2-12 grossly intact Medical Decision & Procedures Laboratory Results 11/10/16 20:23 Red Blood Count 4.29, Mean Corpuscular Volume 93.2, Mean Corpuscular Hemoglobin 30.1, Mean Corpuscular Hemoglobin Concent 32.3, Mean Platelet Volume 9.3, Neutrophils (%) (Auto) 46.7, Lymphocytes (%) (Auto) 39.2, Monocytes (%) (Auto) 13.5, Eosinophils (%) (Auto) 0.4, Basophils (%) (Auto) 0.2, Neutrophils # (Auto ) 2.32, Lymphocytes # (Auto) 1.95, Monocytes # (Auto) 0.67, Eosinophils # (Auto ) 0.02, Basophils # (Auto) 0.01 11/10/16 20:23 Test 11/10/16 19:49 11/10/16 20:23 11/10/16 20:41 White Blood Count 4.97 K/uL (4.8-10.8) Red Blood Count 4.29 M/uL (4.7-6.1) Hemoglobin 12.9 g/dL (14.0-18.0) Hematocrit 40.0 % (42-52) Mean Corpuscular Volume 93.2 fL (80-100) Mean Corpuscular Hemoglobin 30.1 pg (25-34) Mean Corpuscular Hemoglobin Concent 32.3 g/dl (32-36) Platelet Count 420 K/uL (130-400) Mean Platelet Volume 9.3 fL (7.4-10.4) Neutrophils (%) (Auto) 46.7 % Lymphocytes (%) (Auto) 39.2 % Monocytes (%) (Auto) 13.5 % Eosinophils (%) (Auto) 0.4 % Basophils (%) (Auto) 0.2 % Neutrophils # (Auto) 2.32 K/uL (1.4-6.5) Lymphocytes # (Auto) 1.95 K/uL (1.2-3.4) Monocytes # (Auto) 0.67 K/uL (0.11-0.59) Eosinophils # (Auto) 0.02 K/uL (0-0.5) Basophils # (Auto) 0.01 K/uL (0-0.2) RDW Standard Deviation 55.7 fL (36.4-46.3) RDW Coefficient of Variation 18.6 % (11.5-14.5) Immature Granulocyte % (Auto) 0.0 % Immature Granulocyte # (Auto) 0.00 K/uL (0.00-0.02) Est Creatinine Clear Calc Drug Dose 30.0 ml/min Estimated GFR () 54.2 Estimated GFR (Non- 46.8 BUN/Creatinine Ratio 17.7 (10-20) Calcium Level 9.2 mg/dl (8.5-10.1) Total Bilirubin 0.4 mg/dl (0.2-1) Direct Bilirubin 0.2 mg/dl (0-0.2) Aspartate Amino Transf (AST/SGOT) 22 U/L (15-37) Alanine Aminotransferase (ALT/SGPT) 20 U/L (12-78) Alkaline Phosphatase 84 U/L (45-117) Total Protein 8.2 gm/dl (6.4-8.2) Albumin 3.4 gm/dl (3.4-5.0) Lipase 124 U/L (73-393) Bedside Hemoglobin 12.9 g/dl (14.0-18.0) Bedside Hematocrit 38 % (42-52) Bedside Sodium 138 mEq/L (135-144) Bedside Potassium 4.6 mEq/L (3.3-5.0) Bedside Chloride 103 mEq/L (101-112) Bedside Total CO2 24 mEq/l (24-31) Anion Gap 17.0 mmol/L (16-25) Bedside Blood Urea Nitrogen 26 mg/dl (7-18) Bedside Creatinine 1.4 mg/dl (0.6-1.3) Bedside Glucose (other) 144 mg/dl (70-99) Bedside Ionized Calcium (Helga) 1.19 mmol/l (1.12-1.32) Date/Time Source Procedure Growth Status 11/10/16 19:49 Stool C.difficile Toxin B Gene (PCR) - Final No C. difficile toxin B gene detected Complete Labs reviewed by ED physician. Medications Administered Medications (Trade) Dose Ordered Sig/Lenka Route Start Time Stop Time Status Last Admin Dose Admin Sodium Chloride 1,000 ml @ 999 mls/hr Q1H1M STAT IV 11/10/16 20:11 11/10/16 21:11 DC 11/10/16 20:36 999 MLS/HR ED Course 1930: Past medical records reviewed. The patient was evaluated in room A9B. A complete history and physical examination was performed. 2010: Ordered Sodium Chloride 1000 ml @ 999 mls/hr IV 2154: Upon reexamination the patient is resting. I discussed results and treatment plan with the patient. He verbalizes agreement and understanding. The patient is ready for discharge. Medical Decision Differential diagnosis: Etiologies such as appendicitis, diverticulitis, PUD, biliary pathology, UTI, pancreatitis, obstruction, mesenteric ischemia, aortic pathology, infections, inflammatory bowel disease, renal colic, as well as others were entertained. This is an 80-year-old male who presents emergency Department with increased ostomy output. The patient has a normally controlled his ostomy output using his diet however his primary care doctor sent him in to the emergency department. He was able to provide a stool sample which did not show any evidence of C. difficile. An IV was established, patient given normal saline bolus. The patient's potassium is normal. Serial abdominal examinations were performed on the patient in the emergency department and I feel that the patient is safe enough to be discharged home for follow-up with his primary care physician. Patient was in agreement with the treatment plan. Medication Reconcilliation Current Medication List: was personally reviewed by me Blood Pressure Screening Patient's blood pressure: Normal blood pressure Blood pressure disposition: Did not require urgent referral Impression Primary Impression: Altered bowel elimination due to intestinal ostomy Scribe Attestation The scribe's documentation has been prepared under my direction and personally reviewed by me in its entirety. I confirm that the note above accurately reflects all work, treatment, procedures, and medical decision making performed by me. Departure Information Dispostion Home / Self-Care Referrals Sonido Riojas M.D. (PCP) Forms HOME CARE DOCUMENTATION FORM, IMPORTANT VISIT INFORMATION, WORK / SCHOOL INSTRUCTIONS Patient Instructions My [facility] Additional Instructions You have been examined and treated today on an emergency basis only. This is not a substitute for, or an effort to provide, complete comprehensive medical care. It is impossible to recognize and treat all injuries or illnesses in a single emergency department visit. It is therefore important that you follow up closely with Dr Riojas. Call as soon as possible for an appointment. Thank you for your time and consideration. I look forward to speaking with you again soon. Please don't hesitate to call us if you have any questions.
[2016-11-10] MEDS ORDERED: CAPE150T PO ×2 (20:21→20:22)
[2016-11-10] MEDS ORDERED: XLD/500 PO (20:22)
[2016-11-10] MEDS ORDERED: NUTR-7 PO (20:29)
[2016-11-10 20:34] LABS: BASO % 0.2 %; BASO ABS # 0.01 K/uL (0-0.2); COMPLETE YES; EOS % 0.4 %; LYMPH % 39.2 %; LYMPH ABS # 1.95 K/uL (1.2-3.4); MEAN CELL VOLUME 93.2 fL (80-100); MEAN CORPUSCULAR HEMOGLOBIN 30.1 pg (25-34); MEAN CORPUSCULAR HGB CONC 32.3 g/dl (32-36); MEAN PLATELET VOLUME 9.3 fL (7.4-10.4); MONO % 13.5 %; NEUT % 46.7 %; PLATELET COUNT 420 K/uL (130-400); RED BLOOD COUNT 4.29 M/uL (4.7-6.1); WHITE BLOOD COUNT 4.97 K/uL (4.8-10.8)
[2016-11-10 20:50] LABS: BUN/CREATININE RATIO 17.7 (10-20); CALCIUM 9.2 mg/dl (8.5-10.1); CREATININE 1.4 mg/dl (0.60-1.40); POTASSIUM 4.9 mmol/L (3.5-5.1)
[2016-11-10 20:54] LABS: ISTAT CREATININE 1.4 mg/dl (0.6-1.3); ISTAT HEMOGLOBIN 12.9 g/dl (14.0-18.0); ISTAT IONIZED CALCIUM 1.19 mmol/l (1.12-1.32)
[2016-11-10 21:51] VITALS: BP 102/60; PULSE 76; O2SAT 97
[2016-11-14 12:38] LABS: NOROVIRUS RNA** TC 19098X NOT DETECTED; O&P GIARDIA AG NOT DETECTED (NOT DETECTED)
== END 2016-11-10 21:57 | disposition home or self-care (01) ==
LOC: C.EDB 18:57 → C.EDA 21:57
DX: K94.09 Other complications of colostomy (principal); Z85.038 Personal history of other malignant neoplasm of large intestine; I25.10 Atherosclerotic heart disease of native coronary artery without angina pectoris; I10 Essential (primary) hypertension; E78.00 Pure hypercholesterolemia, unspecified; Z87.442 Personal history of urinary calculi; I25.2 Old myocardial infarction; Z80.9 Family history of malignant neoplasm, unspecified; Z83.3 Family history of diabetes mellitus; Z82.49 Family history of ischemic heart disease and other diseases of the circulatory system; Z84.1 Family history of disorders of kidney and ureter; Z79.82 Long term (current) use of aspirin; Z79.899 Other long term (current) drug therapy

== ENCOUNTER → 2016-11-19 | Outpatient (CLI) | payer OTHER ==
[~2016-11-19] MED LIST changes: +ASPI81TA28 PO; +CAPE150T PO; -LEVO25TA5 PO; +LEVO50TA6 PO; +MAGN400T6 PO; -MGNO400 PO; -OMEP20CA9 PO; +ONDA8TAB6 PO; -POTA10CA28 PO; +PRLSR20 PO; -SYN25 PO; +XLD/500 PO; +[UNRECOGNIZED DRUG - CODE] PO; -[UNRECOGNIZED DRUG - OTHER] PO
--- NOTE | 2016-11-19 13:01 | DIAGNOSTIC IMAGING REPORT ---
PET/CT HISTORY: Colorectal cancer. TECHNIQUE: PET/CT was performed from the base of the skull through the pelvis following the intravenous administration of 15.9 mCi of F18-FDG. Non-contrast CT imaging was performed over the same range without breath-hold for attenuation correction of PET images and anatomic correlation, but not for primary interpretation as it is not of standard diagnostic quality. CT DOSE: COMPARISON: Abdomen and pelvis CT 09/09/2016. Chest CT 06/23/2016. PET CT 06/11/2016. FINDINGS: HEAD AND NECK: There is no FDG-avid disease or significant lymphadenopathy in the imaged portions of the head and the neck. CHEST: Stable 1.2 cm soft tissue nodule within the superior mediastinum anterior to the trachea on image 58. This demonstrates minimal FDG uptake with an SUV max of 1.7. There are 2 adjacent right paratracheal lymph nodes which also demonstrate minimal FDG uptake with an SUV max of 1.7. These are also unchanged. Dominant right peritracheal lymph node measures 1 cm. Multiple calcified mediastinal and hilar lymph nodes. Trace right pleural effusion has almost completely resolved. Biapical scarlike densities within the lungs are again noted. The right apical density demonstrates minimal FDG uptake, suggestive of scarring. This remains unchanged. The dominant right lower lobe nodule seen within the medial base on the prior study has decreased in size. This currently measures 7 mm, previously measuring 12 mm. No FDG uptake associated with this nodule. There is a stable 9 mm irregular nodule within the lateral base of the right lower lobe on image 116. This does not demonstrate FDG uptake. ABDOMEN/PELVIS: There is a 1 cm FDG avid lesion within the right hepatic lobe which is decreased in both size and FDG uptake. This currently demonstrates an SUV max of 2.3, previously demonstrating an SUV max of 3.0. The second FDG avid lesion within the right hepatic lobe seen on the prior study has resolved. Status post right lower quadrant ostomy. There is a 2.8 cm FDG avid mass within the terminal ileum which demonstrates intense FDG uptake with an SUV max of 8. This is decreased in both size and FDG uptake compared to the prior PET/CT which demonstrated an SUV max of 9. Focal thickening and FDG uptake within the distal sigmoid colon on image 198 which measures 3.5 cm in length. This is consistent with a colonic mass. This demonstrates an SUV max of 6.6. This is similar to the prior study. MUSCULOSKELETAL: There is no FDG-avid or destructive bone lesion. IMPRESSION: 1. Overall, interval improvement in the FDG avid disease as described above. Specifically, the dominant FDG avid nodule within the right lower lobe and the 2 right hepatic lobe lesions have improved. 2. Slight decrease in size and FDG uptake associated with the mass within the terminal ileum. 3. No significant change in the FDG avid 3.5 cm mass within the distal sigmoid colon. Electronically signed by: Yunier Corona M.D. 11/19/2016 12:59 PM Dictated Date/Time: 11/19/2016 12:38 PM
== END | disposition home or self-care (01) ==
LOC: C.PET 09:38
PROVIDERS: ATTEND Internal Medicine Hematology & Oncology
DX: C18.7 Malignant neoplasm of sigmoid colon (principal)

== ENCOUNTER → 2016-11-27 | Outpatient (CLI) | payer OTHER ==
[~2016-11-27] MED LIST changes: +ASPI325T60 PO; +FRRS300 PO; +RXC5 PO; +SYN75 PO
[2016-11-27 11:35] LABS: BASO % 0.3 %; BASO ABS # 0.02 K/uL (0-0.2); EOS % 1.1 %; HEMATOCRIT 36.8 % (42-52); IG% 0.1 %; LYMPH % 30.2 %; LYMPH ABS # 2.21 K/uL (1.2-3.4); MEAN CELL VOLUME 94.6 fL (80-100); MEAN CORPUSCULAR HEMOGLOBIN 30.3 pg (25-34); MEAN PLATELET VOLUME 10.1 fL (7.4-10.4); MONO % 10.7 %; NEUT % 57.6 %; PLATELET COUNT 278 K/uL (130-400); RED BLOOD COUNT 3.89 M/uL (4.7-6.1); WHITE BLOOD COUNT 7.32 K/uL (4.8-10.8)
[2016-11-27 11:40] LABS: COMPLETE YES; MEAN CORPUSCULAR HGB CONC 32.1 g/dl (32-36)
[2016-11-27 12:17] LABS: BLOOD UREA NITROGEN 18 mg/dl (7-18); BUN/CREATININE RATIO 18.1 (10-20); CALCIUM 8.8 mg/dl (8.5-10.1); CARBON DIOXIDE 29 mmol/L (21-32); CHLORIDE 102 mmol/L (98-107); CREATININE 0.97 mg/dl (0.60-1.40); GLUCOSE 127 mg/dl (70-99); POTASSIUM 4.5 mmol/L (3.5-5.1); SODIUM 134 mmol/L (136-145)
== END | disposition home or self-care (01) ==
LOC: C.LAB1850 11:03
PROVIDERS: ATTEND Internal Medicine Hematology & Oncology
DX: C18.7 Malignant neoplasm of sigmoid colon (principal); R79.89 Other specified abnormal findings of blood chemistry

== ENCOUNTER 2016-11-29 10:53 | Inpatient (IN) | payer OTHER ==
[~2016-11-29] VITALS: Ht 165.1 cm; Wt 54.0 kg
[~2016-11-29 10:53] MED LIST changes: -ASPI325T60 PO; -FRRS300 PO; -RXC5 PO; -SYN75 PO
[2016-11-29] MEDS ORDERED: LACTATED RINGER'S 1000ML 1,000 ML IV SCH (11:14)
[2016-11-29 11:34] LABS: BASO % 0.1 %; BASO ABS # 0.01 K/uL (0-0.2); COMPLETE YES; EOS % 0.4 %; HEMATOCRIT 35.9 % (42-52); IG% 0.4 %; LYMPH % 31.1 %; LYMPH ABS # 2.36 K/uL (1.2-3.4); MEAN CELL VOLUME 94.7 fL (80-100); MEAN CORPUSCULAR HEMOGLOBIN 30.3 pg (25-34); MEAN PLATELET VOLUME 10.2 fL (7.4-10.4); PLATELET COUNT 288 K/uL (130-400); RED BLOOD COUNT 3.79 M/uL (4.7-6.1); WHITE BLOOD COUNT 7.59 K/uL (4.8-10.8)
[2016-11-29 11:40] LABS: BUN/CREATININE RATIO 18.7 (10-20); CALCIUM 8.9 mg/dl (8.5-10.1); CREATININE 1.03 mg/dl (0.60-1.40); POTASSIUM 4.6 mmol/L (3.5-5.1)
[2016-11-29 11:41] LABS: PROTHROMBIN TIME (PATIENT) 10.3 SECONDS (9.0-12.0)
[2016-11-29] MEDS: HYDROmorphone INJ 0.5 MG/0.5 ML SYR IV PRN ×7 (11:43→23:32)
--- NOTE | 2016-11-29 11:53 | DIAGNOSTIC IMAGING REPORT ---
SINGLE VIEW PELVIS; 2 VIEWS RIGHT HIP CLINICAL HISTORY: Fall with right hip pain. FINDINGS: An AP portable view of the pelvis with AP and crosstable lateral views of the right hip are obtained correlation is made with pelvic CT dated 09/09/2016. The skeletal structures are osteopenic. There is an impacted and distracted fracture of the right femoral neck. Overlying soft tissue edema is noted. No additional fracture is seen. The bony pelvis and left hip appear intact. Moderate to advanced arthritic change and joint space narrowing is present in both hips. Bladder calculi and numerous phleboliths are identified in the pelvis. There is advanced atherosclerotic calcification of the femoral arteries. No bowel obstruction is seen. An ostomy is noted in the right lower quadrant. IMPRESSION: 1. There is an impacted and distracted fracture through the right femoral neck. 2. No additional fracture is seen involving the bony pelvis or the left hip. 3. Osteopenia and arthritic change as above. Electronically signed by: Levy Mcgowan M.D. 11/29/2016 11:52 AM Dictated Date/Time: 11/29/2016 11:49 AM
--- NOTE | 2016-11-29 11:57 | DIAGNOSTIC IMAGING REPORT ---
SINGLE VIEW CHEST CLINICAL HISTORY: Fall. Right hip fracture. FINDINGS: 2 AP, portable, upright chest radiographs are compared to study dated 09/26/2016 and correlated with chest CT dated 06/23/2016. The examination is degraded by portable technique and patient rotation. The heart is enlarged and there is atherosclerotic calcification of the thoracic aorta. The pulmonary vasculature is noncongested. There are calcified mediastinal and hilar lymph nodes. Chronic interstitial thickening and nodularity is unchanged from previous, and several calcified granulomas are observed. Apical scarring is noted. No airspace consolidation, large pleural effusion, or pneumothorax is seen. The skeletal structures are osteopenic. The bony thorax is grossly intact. IMPRESSION: Cardiomegaly and chronic parenchymal changes as above. No acute cardiopulmonary abnormality is seen. Electronically signed by: Levy Mcgowan M.D. 11/29/2016 11:55 AM Dictated Date/Time: 11/29/2016 11:53 AM
[2016-11-29] MEDS ORDERED: SYN75 PO (12:22)
--- NOTE | 2016-11-29 12:36 | History and Physical ---
History & Physical Date & Time of Service: Nov 29, 2016 at 12:14 Chief Complaint: Fall/Hip Pain Primary Care Physician: Sonido Riojas M.D. History of Present Illness Source: patient, family, clinic records, hospital records Patient is a pleasant 80 y/o male, with PMHx of stage IV colon cancer s/p ostomy w/ mets to liver, CAD s/p NV, hypercholesteremia, HTN, kidney stones, vertigo, iron deficiency anemia, T2DM, hypothyroidism, and GERD, who presented to the ED because of R hip pain secondary to a mechanical fall. Patient states he was cutting up a cardboard box when it started to slide away from him causing him to fall. He denies any syncope/LOC, lightheadedness or dizziness. He denies any head injury. Patient denies any fever, chills, sweats, lightheadedness, dizziness, vision changes, CP, palpitations, edema, SOB, wheezing, cough, abdominal pain, nausea, vomiting, diarrhea, urinary symptoms, melena, numbness/tingling, weakness, anxiety/depression, active bleeding, or new skin discoloration/changes. Past Medical/Surgical History Medical Problems: stage IV colon cancer s/p ostomy w/ mets to liver CAD s/p NV hypercholesteremia HTN kidney stones vertigo iron deficiency anemia T2DM hypothyroidism GERD Surgical history: ORIF olecranon fracture in 2012 s/p ostomy Family History Cancer Diabetes mellitus FHx: heart disease FHx: kidney disease/stones Social History Smoking Status: Former Smoker Drug Use: none Marital Status: Housing status: lives with significant other Occupational Status: retired Immunizations History of Influenza Vaccine: Yes Influenza Vaccine Date: Nov 03, 2012 History of Tetanus Vaccine?: UTD History of Pneumococcal: Unknown History of Hepatitis B Vaccine: Unknown Multi-Drug Resistant Organisms History of MDRO: No Allergies Coded Allergies: Clarithromycin (Verified Allergy, Severe, "MAJOR RXN" ?, 11/29/16) Penicillins (Verified Allergy, Severe, "MAJOR RXN" ?, 11/29/16) Sulfa Antibiotics (Verified Allergy, Severe, "SULFA DRUGS": "MAJOR RXN"?, 11/29/16) Cephalosporins (Verified Allergy, Unknown, ?, 11/29/16) Diltiazem (Verified Allergy, Unknown, FLUSHING, 11/29/16) Morphine (Verified Allergy, Unknown, N/V, 11/29/16) Streptokinase (Verified Allergy, Unknown, ?, 11/29/16) Sulfonylureas (Verified Allergy, Unknown, RASH, 11/29/16) Codeine (Verified Adverse Reaction, Mild, NAUSEA / VOMITING, 11/29/16) Home Medications Scheduled Aspirin (Aspirin Ec), 81 MG PO HS Capecitabine (Xeloda), 500 MG PO UD Ergocalciferol (Vitamin D 03180 Unit), 50,000 UNIT PO 2XWK Ferrous Sulfate (Iron), 325 MG PO DAILY Levothyroxine Sodium (Synthroid), 75 MG PO QAM Magnesium Oxide (Mag-Ox), 400 MG PO DAILY Nitroglycerin (Nitrostat), 0.4 MG UT PRN Nutritional Supplements (Boost), 1 CAN PO DAILY Omeprazole (Prilosec), 20 MG PO QPM Simethicone (Mylanta Gas Minis), 311 MG PO DIRECTED Simvastatin (Zocor), 40 MG PO QPM Tamsulosin Hcl (Flomax), 0.4 MG PO NOON Scheduled PRN Loperamide Hcl (Loperamide Hcl), 2 MG PO Q6H PRN for Diarrhea Ondansetron Hcl (Zofran), 8 MG PO Q8 PRN for Nausea Physical Exam Vital Signs Date Time Temp Pulse Resp B/P (MAP) Pulse Ox O2 Delivery O2 Flow Rate FiO2 11/29/16 11:57 64 20 122/68 99 Room Air 11/29/16 11:01 37.0 63 16 136/98 99 Room Air General Appearance: no apparent distress, + cachetic, + thin Head: normocephalic, atraumatic Eyes: PERRL ENT: hearing grossly normal Neck: supple Respiratory/Chest: lungs clear, no respiratory distress, no accessory muscle use, + decreased breath sounds Cardiovascular: regular rate, rhythm Abdomen/GI: normal bowel sounds, non tender, soft, + pertinent finding (+ ostomy site ) Extremities/Musculoskelatal: no calf tenderness, + swelling (trace pitting edema to bilateral lower extremities ) Neurologic/Psych: alert, normal mood/affect, oriented x 3 Skin: normal color, warm/dry, no rash Diagnostics Laboratory Results Results Past 24 Hours Test 11/29/16 10:57 Range/Units White Blood Count 7.59 4.8-10.8 K/uL Red Blood Count 3.79 4.7-6.1 M/uL Hemoglobin 11.5 14.0-18.0 g/dL Hematocrit 35.9 42-52 % Mean Corpuscular Volume 94.7 80-100 fL Mean Corpuscular Hemoglobin 30.3 25-34 pg Mean Corpuscular Hemoglobin Concent 32.0 32-36 g/dl Platelet Count 288 130-400 K/uL Mean Platelet Volume 10.2 7.4-10.4 fL Neutrophils (%) (Auto) 60.0 % Lymphocytes (%) (Auto) 31.1 % Monocytes (%) (Auto) 8.0 % Eosinophils (%) (Auto) 0.4 % Basophils (%) (Auto) 0.1 % Neutrophils # (Auto) 4.55 1.4-6.5 K/uL Lymphocytes # (Auto) 2.36 1.2-3.4 K/uL Monocytes # (Auto) 0.61 0.11-0.59 K/uL Eosinophils # (Auto) 0.03 0-0.5 K/uL Basophils # (Auto) 0.01 0-0.2 K/uL RDW Standard Deviation 59.6 36.4-46.3 fL RDW Coefficient of Variation 17.7 11.5-14.5 % Immature Granulocyte % (Auto) 0.4 % Immature Granulocyte # (Auto) 0.03 0.00-0.02 K/uL Prothrombin Time 10.3 9.0-12.0 SECONDS Prothromb Time International Ratio 1.0 0.9-1.1 Activated Partial Thromboplast Time 26.2 21.0-31.0 SECONDS Partial Thromboplastin Ratio 1.0 Sodium Level 136 136-145 mmol/L Potassium Level 4.6 3.5-5.1 mmol/L Chloride Level 104 98-107 mmol/L Carbon Dioxide Level 26 21-32 mmol/L Anion Gap 6.0 3-11 mmol/L Blood Urea Nitrogen 19 7-18 mg/dl Creatinine 1.03 0.60-1.40 mg/dl Est Creatinine Clear Calc Drug Dose 42.2 ml/min Estimated GFR () 78.0 Estimated GFR (Non- 67.3 BUN/Creatinine Ratio 18.7 10-20 Random Glucose 120 70-99 mg/dl Calcium Level 8.9 8.5-10.1 mg/dl Diagnostic Radiology SINGLE VIEW PELVIS; 2 VIEWS RIGHT HIP CLINICAL HISTORY: Fall with right hip pain. FINDINGS: An AP portable view of the pelvis with AP and crosstable lateral views of the right hip are obtained correlation is made with pelvic CT dated 09/09/2016. The skeletal structures are osteopenic. There is an impacted and distracted fracture of the right femoral neck. Overlying soft tissue edema is noted. No additional fracture is seen. The bony pelvis and left hip appear intact. Moderate to advanced arthritic change and joint space narrowing is present in both hips. Bladder calculi and numerous phleboliths are identified in the pelvis. There is advanced atherosclerotic calcification of the femoral arteries. No bowel obstruction is seen. An ostomy is noted in the right lower quadrant. IMPRESSION: 1. There is an impacted and distracted fracture through the right femoral neck. 2. No additional fracture is seen involving the bony pelvis or the left hip. 3. Osteopenia and arthritic change as above. Electronically signed by: Levy Mcgowan M.D. 11/29/2016 11:52 AM Dictated Date/Time: 11/29/2016 11:49 AM The status of this report is Signed. Draft = Not yet reviewed or approved by Radiologist. Signed = Reviewed and approved by Radiologist. SINGLE VIEW CHEST CLINICAL HISTORY: Fall. Right hip fracture. FINDINGS: 2 AP, portable, upright chest radiographs are compared to study dated 09/26/2016 and correlated with chest CT dated 06/23/2016. The examination is degraded by portable technique and patient rotation. The heart is enlarged and there is atherosclerotic calcification of the thoracic aorta. The pulmonary vasculature is noncongested. There are calcified mediastinal and hilar lymph nodes. Chronic interstitial thickening and nodularity is unchanged from previous, and several calcified granulomas are observed. Apical scarring is noted. No airspace consolidation, large pleural effusion, or pneumothorax is seen. The skeletal structures are osteopenic. The bony thorax is grossly intact. IMPRESSION: Cardiomegaly and chronic parenchymal changes as above. No acute cardiopulmonary abnormality is seen. Electronically signed by: Levy Mcgowan M.D. 11/29/2016 11:55 AM Dictated Date/Time: 11/29/2016 11:53 AM The status of this report is Signed. Draft = Not yet reviewed or approved by Radiologist. Signed = Reviewed and approved by Radiologist. Impression Assessment and Plan Patient is a pleasant 80 y/o male, with PMHx of stage IV colon cancer s/p ostomy , CAD s/p NV, hypercholesteremia, HTN, kidney stones, vertigo, iron deficiency anemia, T2DM, hypothyroidism, and GERD, who presented to the ED because of R hip pain secondary to a mechanical fall. Impacted and distracted fracture through the right femoral neck: - Admit to med/surg - Geriatric hip fx protocol - Pain management- Tylenol PO PRN, Oxycodone PO PRN, IV Dilaudid PRN severe pain - Check vitamin D level- continue vitamin D supplement 50,000 IU 2XWKLY - Type and screen completed - NPO after MD for ?procedure tomorrow vs Thursday - Consult orthopedics, appreciate recommendations stage IV colon cancer s/p ostomy: - Continue Xeloda, Loperamide, mag-Ox supplement - Continue boost supplement CAD s/p NV, hypercholesteremia: - Continue Zocor 40 mg daily - Hold ASA 81 mg daily pending surgical intervention T2DM: - No medications noted - BSG ACHS and ISS Hypothyroidism: Continue Synthroid 75 mcg daily Iron deficiency anemia- STABLE: Continue Ferrous Sulfate 325 mg daily BPH: Continue Flomax 0.4 mg daily GERD: Protonix 40 mg daily- resume Prilosec at discharge DVT prophylaxis: hold chemical anticoagulation pending surgical evaluation Code Status: LEVEL I, FULL Dispo: From home, lives w/ - CM and PT/OT consultation prior to discharge will be needed Physician Supervision Note: I was present with The PA during the history and exam. I discussed the case with the PA and agree with the findings and plan as documented in the note. Any exceptions or clarifications are listed here: 81 y/o M Hx advanced colon CA , CAD , DM - presenting with a R femoral fracture following an accidental fall Pt was evaluated by orthopedics in the ER and may proceed to surgery AM OE AAO x 3 S1,2 R CTA colostomy bag - no tenderness minimal edema P: Would place RCRI at 6.6% - prognosis is complicated by Xeloda and cachexia We will discuss with his oncologist and ortho Cont ASA post-op and Statin Tx - would not tolerate a B paula May need a preop transfusion due to underlying anemia, CAD and expected blood loss Discussed above with pt and family Documented By: Josiah Reed Level of Care Med/Surg Resuscitation Status FULL RESUSCITATION VTE Prophylaxis Given or contraindicated: TSandy Stockings, SCD's, Contraindicated
[2016-11-29 12:51] VITALS: Ht 165.1 cm; Wt 54.0 kg
[2016-11-29] MEDS ORDERED: CAPECITABINE 500 MG PO SCH (13:00)
[2016-11-29] MEDS ORDERED: MAGNESIUM HYDROXIDE SUSP 30 ML UDC PO PRN ×2 (13:00)
[2016-11-29] MEDS ORDERED: ACETAMINOPHEN 325 MG TAB PO PRN (13:00)
[2016-11-29] MEDS ORDERED: ONDANSETRON INJ 2 MG/ML 2 ML VIAL IV PRN (13:00)
[2016-11-29] MEDS ORDERED: OXYCODONE HCL IR 5 MG TAB (IMMEDIATE RELEASE) PO PRN (13:00)
[2016-11-29] MEDS ORDERED: BISACODYL 10 MG SUPP PR PRN (13:00)
[2016-11-29] MEDS ORDERED: NALOXONE HCL 0.4 MG/1 ML VIAL/CARP IV PRN (13:00)
[2016-11-29] MEDS ORDERED: NITROGLYCERIN 0.4 MG SL PER TAB CHARGE UT PRN (13:00)
[2016-11-29] MEDS ORDERED: POLYETHYLENE (MIRALAX) 17 GM PACK PO PRN ×2 (13:00)
[2016-11-29] MEDS ORDERED: SOD PHOSPHATE/SOD BIPHOSPHATE ENEMA 132 ML BTL PR PRN (13:00)
[2016-11-29] MEDS ORDERED: ALUMINUM/MAGNESIUM/SIMETH (MAALOX MAX) 30 ML UDC PO PRN (13:00)
--- NOTE | 2016-11-29 14:10 | HISTORY & PHYSICAL EXAMINATION ---
DATE OF ADMISSION: 11/29/2016 CHIEF COMPLAINT: Right hip pain. HISTORY OF PRESENT ILLNESS: Manav is a delightful gentleman. He fell earlier today, suffered acute injury to his right lower extremity, first time injury to his right hip. He was brought via emergency transport to the hospital, evaluated and treated. He has a displaced right femoral neck fracture, actually subcapital fracture of the right hip. He was placed for pain control and will become n.p.o. after midnight for surgical intervention. PAST MEDICAL HISTORY: Positive for colon cancer, osteotomy, coronary artery disease status post myocardial infarction, increased cholesterol, hypertension, kidney stones, vertigo, anemia of iron deficiency, hypothyroidism, GERD. PAST SURGICAL HISTORY: Open reduction and internal fixation of olecranon [place] [address] Alvarez, status post osteotomy by Dr. Bautista. FAMILY HISTORY: Carcinoma, diabetes, heart disease. SOCIAL HISTORY: Nonsmoker, , retired and lives with . ALLERGIES: NUMEROUS INCLUDING PENICILLIN, SULFA, CEPHALOSPORIN, DILTIAZEM, MORPHINE, ____, CODEINE, STREPTOKINASE. SCHEDULED MEDICATIONS: Aspirin, capecitabine, vitamin D, iron, levothyroxine, magnesium, Nitrostat, Prilosec, Mylanta, Zocor, Flomax. REVIEW OF SYSTEMS: He denies any double vision, tinnitus. Does have vertigo. Is alert, oriented. Denies any head trauma. Denies any chest pain, palpitations, angina. Denies asthma, wheezing. No current nausea, vomiting, although he does have an ostomy bag in place secondary to his colon CA. Denies any urinary complaints. Review is positive for musculoskeletal hip pain. OBJECTIVE: VITAL SIGNS: Blood pressure 122/68, respirations 20, pulse 64, temp 38, febrile. HEENT: Pupils reactive to light and accommodation normal. SKIN: Tone appears a little darker than normal but no ulcerations. No varicosities, no adenopathy. CARDIAC: Normal S1, S2. He is in regular rhythm at about 64 beats per minute. LUNGS: Clear. ABDOMEN: Soft, nontender. He does have good bowel sounds. EXTREMITIES: His right lower extremity is shortened very slightly, slightly externally rotated as well. A single chest x-ray demonstrates some cardiomegaly, some parenchymal changes but no acute issues. His hip x-ray demonstrated a displaced fracture, right femoral neck with osteopenia. LAB COUNT: 11.2 hemoglobin. ASSESSMENT: Status post mechanical fall ground level at his basement, suffering an acute fracture of right hip, subcapital displaced femoral neck fracture. Also, history of colon cancer, osteotomy and a few other medical problems. DISPOSITION: 1. He was admitted to the medical service and we are thankful for that. 2. We will feed the patient today and then make him n.p.o. after midnight. I have spoken directly with Dr. Alvarez and he is planning on getting to his hip fracture tomorrow morning at 7:30 to 8:00 in the morning. He is as of now the first add-on case, again n.p.o. after midnight. We will keep him hydrated.
[2016-11-29 14:47] VITALS: BP 138/71; PULSE 58; TEMP 36.4; O2SAT 97
[2016-11-29] MEDS ORDERED: DEXTROSE 50% 50 ML SYR IV PRN (15:45)
[2016-11-29] MEDS ORDERED: GLUCAGON FOR INJ 1 MG VIAL SQ PRN (15:45)
[2016-11-29] MEDS ORDERED: GLUCOSE 10 TABS/TUBE PO PRN (15:45)
[2016-11-29] MEDS ORDERED: GLUCOSE 40% GEL 15 GM TUBE PO PRN (15:45)
[2016-11-29] MEDS ORDERED: LOPERAMIDE HCL 2 MG CAP PO PRN (15:45)
[2016-11-29 15:46] LABS: URINE APPEARANCE CLEAR (CLEAR); URINE BILIRUBIN NEG (NEG); URINE COLOR YELLOW; URINE NITRITE NEG (NEG); URINE SPECIFIC GRAVITY 1.023 (1.000-1.030); UROBILINOGEN NEG (NEG)
[2016-11-29 15:47] LABS: MANUAL MICROSCOPIC REQUIRED? NO; REVIEW REQ? YES
[2016-11-29 16:01] LABS: ZZUR CULT IF INDIC CLEAN CATCH YES
--- NOTE | 2016-11-29 16:47 | EMERGENCY ROOM VISIT NOTE ---
History Report prepared by Vance: Cosme Dozier Under the Supervision of: Dr. Flaco Lopez M.D. First contact with patient: 11:08 Chief Complaint: FALL Stated Complaint: FALL/HIP PAIN History of Present Illness The patient is an 81 year old male with an ileostomy who presents to the Emergency Room with complaints of persistent right hip pain after a mechanical fall this morning. He says that he was in his basement working and pushing some boxes, when he fell straight onto his right hip. He notes that he did not his head head, back, or neck on the fall. The patient adds that he has never hurt the right hip before. He notes that he was given Fentanyl prior to arrival. The patient says that he has been feeling well recently. Pt denies LOC, headache, fevers, chills, cough, visual changes, neck pain, chest pain, breathing difficulties, nausea, vomiting, abdominal pain, back pain, numbness, weakness, open wounds, active bleeding, or other complaints. Source of History: patient, family Onset: This morning Position: other (right hip) Quality: other (pain after mechanical fall) Timing: other (persistent) Note: No other associated symptoms noted. Review of Systems See HPI for pertinent positives and negatives. A total of ten systems were reviewed and were otherwise negative. Past Medical & Surgical Medical Problems: (1) Colon cancer (2) Coronary artery disease (3) Hip fracture (4) Hypercholesteremia (5) Hypertension (6) Kidney stones (7) Myocardial infarct (8) Pleural effusion (9) SBO (small bowel obstruction) (10) Vertigo Family History Cancer Diabetes mellitus FHx: heart disease FHx: kidney disease/stones Social History Smoking Status: Former Smoker Alcohol Use: none Drug Use: none Marital Status: Housing Status: lives with significant other Occupation Status: retired Current/Historical Medications Scheduled Aspirin (Aspirin Ec), 81 MG PO HS Capecitabine (Xeloda), 500 MG PO UD Ergocalciferol (Vitamin D 91480 Unit), 50,000 UNIT PO 2XWK Ferrous Sulfate (Iron), 325 MG PO DAILY Levothyroxine Sodium (Synthroid), 75 MG PO QAM Magnesium Oxide (Mag-Ox), 400 MG PO DAILY Nitroglycerin (Nitrostat), 0.4 MG UT PRN Nutritional Supplements (Boost), 1 CAN PO DAILY Omeprazole (Prilosec), 20 MG PO QPM Simethicone (Mylanta Gas Minis), 311 MG PO DIRECTED Simvastatin (Zocor), 40 MG PO QPM Tamsulosin Hcl (Flomax), 0.4 MG PO NOON Scheduled PRN Loperamide Hcl (Loperamide Hcl), 2 MG PO Q6H PRN for Diarrhea Ondansetron Hcl (Zofran), 8 MG PO Q8 PRN for Nausea Allergies Coded Allergies: Clarithromycin (Verified Allergy, Severe, "MAJOR RXN" ?, 11/29/16) Penicillins (Verified Allergy, Severe, "MAJOR RXN" ?, 11/29/16) Sulfa Antibiotics (Verified Allergy, Severe, "SULFA DRUGS": "MAJOR RXN"?, 11/29/16) Cephalosporins (Verified Allergy, Unknown, ?, 11/29/16) Diltiazem (Verified Allergy, Unknown, FLUSHING, 11/29/16) Morphine (Verified Allergy, Unknown, N/V, 11/29/16) Streptokinase (Verified Allergy, Unknown, ?, 11/29/16) Sulfonylureas (Verified Allergy, Unknown, RASH, 11/29/16) Codeine (Verified Adverse Reaction, Mild, NAUSEA / VOMITING, 11/29/16) Physical Exam Vital Signs Date Time Temp Pulse Resp B/P (MAP) Pulse Ox O2 Delivery O2 Flow Rate FiO2 11/29/16 12:51 Room Air 11/29/16 12:32 62 11/29/16 11:57 64 20 122/68 99 Room Air 11/29/16 11:01 37.0 63 16 136/98 99 Room Air Physical Exam GENERAL: Awake, alert, uncomfortable-appearing, in no distress HENT: Normocephalic, atraumatic. Oropharynx unremarkable. EYES: Normal conjunctiva. Sclera non-icteric. NECK: Supple. No nuchal rigidity. FROM. No JVD. RESPIRATORY: Clear to auscultation. CARDIAC: Regular rate, normal rhythm. Extremities warm and well perfused. Pulses equal. ABDOMEN: Soft, non-distended. No tenderness to palpation. No rebound or guarding. No masses. RECTAL: Deferred. MUSCULOSKELETAL: Chest examination reveals no tenderness. Right hip tenderness. Range of motion limited secondary to pain. The back is symmetrical on inspection without obvious abnormality. There is no CVA tenderness to palpation. No joint edema. LOWER EXTREMITIES: Calves are equal size bilaterally and non-tender. No edema. No discoloration. NEURO: Normal sensorium. No sensory or motor deficits noted. SKIN: No rash or jaundice noted. Medical Decision & Procedures ER Provider Diagnostic Interpretation: X-ray: Per my interpretation, radiologist review. SINGLE VIEW PELVIS; 2 VIEWS RIGHT HIP CLINICAL HISTORY: Fall with right hip pain. FINDINGS: An AP portable view of the pelvis with AP and crosstable lateral views of the right hip are obtained correlation is made with pelvic CT dated 09/09/2016. The skeletal structures are osteopenic. There is an impacted and distracted fracture of the right femoral neck. Overlying soft tissue edema is noted. No additional fracture is seen. The bony pelvis and left hip appear intact. Moderate to advanced arthritic change and joint space narrowing is present in both hips. Bladder calculi and numerous phleboliths are identified in the pelvis. There is advanced atherosclerotic calcification of the femoral arteries. No bowel obstruction is seen. An ostomy is noted in the right lower quadrant. IMPRESSION: 1. There is an impacted and distracted fracture through the right femoral neck. 2. No additional fracture is seen involving the bony pelvis or the left hip. 3. Osteopenia and arthritic change as above. Electronically signed by: Levy Mcgowan M.D. 11/29/2016 11:52 AM Dictated Date/Time: 11/29/2016 11:49 AM SINGLE VIEW CHEST CLINICAL HISTORY: Fall. Right hip fracture. FINDINGS: 2 AP, portable, upright chest radiographs are compared to study dated 09/26/2016 and correlated with chest CT dated 06/23/2016. The examination is degraded by portable technique and patient rotation. The heart is enlarged and there is atherosclerotic calcification of the thoracic aorta. The pulmonary vasculature is noncongested. There are calcified mediastinal and hilar lymph nodes. Chronic interstitial thickening and nodularity is unchanged from previous, and several calcified granulomas are observed. Apical scarring is noted. No airspace consolidation, large pleural effusion, or pneumothorax is seen. The skeletal structures are osteopenic. The bony thorax is grossly intact. IMPRESSION: Cardiomegaly and chronic parenchymal changes as above. No acute cardiopulmonary abnormality is seen. Electronically signed by: Levy Mcgowan M.D. 11/29/2016 11:55 AM Dictated Date/Time: 11/29/2016 11:53 AM Laboratory Results 11/29/16 10:57 Red Blood Count 3.79, Mean Corpuscular Volume 94.7, Mean Corpuscular Hemoglobin 30.3, Mean Corpuscular Hemoglobin Concent 32.0, Mean Platelet Volume 10.2, Neutrophils (%) (Auto) 60.0, Lymphocytes (%) (Auto) 31.1, Monocytes (%) (Auto) 8.0, Eosinophils (%) (Auto) 0.4, Basophils (%) (Auto) 0.1, Neutrophils # (Auto) 4.55, Lymphocytes # (Auto) 2.36, Monocytes # (Auto) 0.61, Eosinophils # (Auto) 0.03, Basophils # (Auto) 0.01 11/29/16 10:57 Test 11/29/16 10:57 White Blood Count 7.59 K/uL (4.8-10.8) Red Blood Count 3.79 M/uL (4.7-6.1) Hemoglobin 11.5 g/dL (14.0-18.0) Hematocrit 35.9 % (42-52) Mean Corpuscular Volume 94.7 fL (80-100) Mean Corpuscular Hemoglobin 30.3 pg (25-34) Mean Corpuscular Hemoglobin Concent 32.0 g/dl (32-36) Platelet Count 288 K/uL (130-400) Mean Platelet Volume 10.2 fL (7.4-10.4) Neutrophils (%) (Auto) 60.0 % Lymphocytes (%) (Auto) 31.1 % Monocytes (%) (Auto) 8.0 % Eosinophils (%) (Auto) 0.4 % Basophils (%) (Auto) 0.1 % Neutrophils # (Auto) 4.55 K/uL (1.4-6.5) Lymphocytes # (Auto) 2.36 K/uL (1.2-3.4) Monocytes # (Auto) 0.61 K/uL (0.11-0.59) Eosinophils # (Auto) 0.03 K/uL (0-0.5) Basophils # (Auto) 0.01 K/uL (0-0.2) RDW Standard Deviation 59.6 fL (36.4-46.3) RDW Coefficient of Variation 17.7 % (11.5-14.5) Immature Granulocyte % (Auto) 0.4 % Immature Granulocyte # (Auto) 0.03 K/uL (0.00-0.02) Prothrombin Time 10.3 SECONDS (9.0-12.0) Prothromb Time International Ratio 1.0 (0.9-1.1) Activated Partial Thromboplast Time 26.2 SECONDS (21.0-31.0) Partial Thromboplastin Ratio 1.0 Anion Gap 6.0 mmol/L (3-11) Est Creatinine Clear Calc Drug Dose 42.2 ml/min Estimated GFR () 78.0 Estimated GFR (Non- 67.3 BUN/Creatinine Ratio 18.7 (10-20) Calcium Level 8.9 mg/dl (8.5-10.1) Laboratory results reviewed by me Medications Administered Medications (Trade) Dose Ordered Sig/Lenka Route Start Time Stop Time Status Last Admin Dose Admin Lactated Ringer's 1,000 ml @ 75 mls/hr [id number] IV 11/29/16 11:14 11/29/16 15:24 DC 11/29/16 11:43 75 MLS/HR Hydromorphone HCl (Dilaudid Inj) 0.5 mg Q20M PRN IV 11/29/16 11:15 11/29/16 15:23 DC 11/29/16 15:15 0.5 MG ECG Indication: other (fall) Rate (beats per minute): 62 Rhythm: normal sinus Findings: LAFB, RBBB, no acute ischemic change, no ectopy ED Course 1109: The patient was evaluated in room C10. A complete history and physical exam was performed. 1114: Ordered Lactated Ringer's 1000 ml @ 75 mls/hr IV. 1115: Ordered Dilaudid Inj 0.5 mg IV PRN. 1145: Upon reexamination, the patient was resting. I discussed the test results and treatment plan with him. He expressed understanding and agreement of the treatment plan. The patient will be evaluated for further management. 1156: I discussed the patient with Dr. Adolfo [facility]. 1212: I discussed the patient with Dr. Reed - [facility] [place] sound person - he will evaluate the patient for further treatment. Medical Decision Prior records reviewed and summarized above. Triage Nursing notes reviewed and agree them. Additional history obtained from family. The patient's history was concerning for traumatic injury. Differential diagnosis: Etiologies such as fracture, dislocation, neurovascular compromise, compartment syndrome, soft tissue injury, as well as others were entertained. Physical examination: Consistent with an isolated hip injury. ER treatment provided: IV lock IV hydration with LR at 75 mg IV IV Dilaudid NPO Bedrest On reassessment the patient felt better. Diagnostics interpreted by me: ] The labs revealed an unremarkable CBC, coags, and chemistry panel. Imaging studies: Xrays as above. The patient has an isolated hip fracture and will need admission to the hospital. Consultation: A consultation was placed with orthopedics. The case was discussed and diagnostics were reviewed. The patient was evaluated in the ER for further treatment. Medication Reconcilliation Current Medication List: was personally reviewed by me Blood Pressure Screening Patient's blood pressure: Elevated blood pressure Blood pressure disposition: Elevated BP felt to be situational Consults Time Called: 1152 Consulting Physician: Dr. [facility] Returned Call: 1156 I discussed the patient with Dr. [facility]ol[facility]. Additional Consults: Time Called: 1200 Consulted Physician: Dr. Derek VÁSQUEZ sound person Returned Call: 1212 Additional Comments: I discussed the patient with Dr. Derek VÁSQUEZ sound person - he will evaluate the patient for further treatment. Impression Primary Impression: Hip fracture, right Scribe Attestation The scribe's documentation has been prepared under my direction and personally reviewed by me in its entirety. I confirm that the note above accurately reflects all work, treatment, procedures, and medical decision making performed by me. Departure Information Dispostion Being Evaluated By Hospitalist Referrals No Doctor, Assigned (PCP) Patient Instructions My [facility]
[2016-11-29] MEDS: INSULIN ASPART 100 UNITS/ML 3 ML PEN SC SCH ×2 (17:15→21:00)
[2016-11-29] MEDS: CAPECITABINE 500 MG TAB PO SCH (21:10)
[2016-11-29] MEDS: ONDANSETRON INJ 2 MG/ML 2 ML VIAL IV PRN (21:11)
[2016-11-29] MEDS: DOCUSATE SODIUM/SENNA 50/8.6MG TAB PO SCH (21:13)
[2016-11-29] MEDS: SIMVASTATIN 40 MG TAB PO SCH (21:13)
[2016-11-29 23:42] VITALS: BP 120/61; PULSE 56; TEMP 36.8; O2SAT 97
[2016-11-30] VITALS (10 sets, daily range): BP systolic 101–119; BP diastolic 52–65; PULSE 60–80; TEMP 36.2–36.9; O2SAT 92–100
[2016-11-30] MEDS: HYDROmorphone INJ 0.5 MG/0.5 ML SYR IV PRN ×2 (03:36→07:39)
[2016-11-30 05:14] LABS: HEMATOCRIT 34.8 % (42-52); MEAN CELL VOLUME 94.1 fL (80-100); MEAN CORPUSCULAR HEMOGLOBIN 31.1 pg (25-34); PLATELET COUNT 235 K/uL (130-400)
[2016-11-30] MEDS: LEVOTHYROXINE 75 MCG TAB PO SCH (05:38)
[2016-11-30 05:39] LABS: BUN/CREATININE RATIO 16.7 (10-20); CALCIUM 8.5 mg/dl (8.5-10.1); CREATININE 0.91 mg/dl (0.60-1.40); MAGNESIUM 1.8 mg/dl (1.8-2.4); POTASSIUM 4.2 mmol/L (3.5-5.1)
[2016-11-30] MEDS ORDERED: CLINDAMYCIN IV 900 MG in DEXTROSE 5% 100ML 100 ML IV SCH (06:00)
[2016-11-30] MEDS: INSULIN ASPART 100 UNITS/ML 3 ML PEN SC SCH ×4 (08:00→21:00)
[2016-11-30] MEDS ORDERED: PROPOFOL IV EMULSION 10 MG/ML 20 ML VIAL IV ONE (08:30)
[2016-11-30] MEDS ORDERED: LIDOCAINE HCL 2% 2 ML VIAL (20MG/ML) ONE (08:30)
[2016-11-30] MEDS ORDERED: BACITRACIN 50000 UNIT VIAL ONE (08:32)
[2016-11-30] MEDS ORDERED: THROMBIN FOR SOLN 20000 UNIT KIT ONE (08:33)
[2016-11-30] MEDS ORDERED: BUPIVACAINE/EPINEPHRINE 0.5% MPF 1:200,000 30 ML VIAL ONE (08:33)
[2016-11-30] MEDS ORDERED: CISATRACURIUM BESYLATE IV SOLN 2 MG/ML 10 ML VIAL ONE (08:44)
[2016-11-30] MEDS ORDERED: SUCCINYLCHOLINE CHLORIDE 20 MG/ML 10 ML VIAL IV ONE (08:44)
[2016-11-30] MEDS ORDERED: FENTANYL CITRATE INJ 50 MCG/1 ML 2 ML VIAL ONE ×2 (08:44→10:16)
[2016-11-30] MEDS ORDERED: ONDANSETRON INJ 2 MG/ML 2 ML VIAL ONE (08:44)
[2016-11-30] MEDS: BOOST VANILLA PO SCH ×2 (09:00)
[2016-11-30] MEDS: CAPECITABINE 500 MG TAB PO SCH ×2 (09:00→18:39)
[2016-11-30] MEDS ORDERED: PHENYLEPHRINE 100MCG/ML 5ML SYR ONE (09:14)
[2016-11-30 09:58] LABS: ESTIMATED AVERAGE GLUCOSE 126 mg/dl; HA1C FLAG Normal (Normal)
[2016-11-30] MEDS ORDERED: GLYCOPYRROLATE INJ 0.2 MG/ML VIAL ONE (10:24)
[2016-11-30] MEDS ORDERED: EpHEDrine SULFATE INJ 50 MG/ML AMP ONE (10:24)
[2016-11-30] MEDS ORDERED: NEOSTIGMINE METHYLSULFATE 5 MG/5 ML SYR ONE (10:25)
[2016-11-30] MEDS ORDERED: ESMOLOL HCL 10 MG/ML 10 ML VIAL ONE (10:37)
[2016-11-30] MEDS ORDERED: ATROPINE SULFATE 0.1 MG/ML 5ML SYR IV PRN (10:45)
[2016-11-30] MEDS ORDERED: EpHEDrine SULFATE INJ 50 MG/ML AMP IV PRN (10:45)
[2016-11-30] MEDS ORDERED: FENTANYL CITRATE INJ 50 MCG/1 ML 2 ML VIAL IV PRN (10:45)
--- NOTE | 2016-11-30 10:46 | [facility] Post Operative Brief Note ---
Immediate Operative Summary Operative Date Nov 30, 2016. Pre-Operative Diagnosis RIGHT DISPLACED FEMORAL NECK HIP FRACTURE Post-Operative Diagnosis SAME PREOP Procedure(s) Performed RIGHT CEMENTED BIPOLAR HIP Surgeon DR. Lukasz SEARS Bariatric Surgeon Surgeon(s) Saige AUGUSTE PAC Estimated Blood Loss 200ml Findings DISPLACED FEMORAL NECK FRACTURE Fluids (cc crystalloids) 1000 CC Specimens RIGHT HIP BONE AND TISSUE Drains None Anesthesia General Complication(s) None Disposition Recovery Room / PACU
[2016-11-30] MEDS ORDERED: BISACODYL 10 MG SUPP PR PRN (11:00)
[2016-11-30] MEDS ORDERED: MAGNESIUM HYDROXIDE SUSP 30 ML UDC PO PRN (11:00)
--- NOTE | 2016-11-30 11:35 | DIAGNOSTIC IMAGING REPORT ---
R HIP UNILATERAL 2 VIEWS CLINICAL HISTORY: Right hip fracture. Postoperative study. COMPARISON: 11/29/2016 DISCUSSION: There is a bipolar right hip arthroplasty. There is no dislocation. Vascular calcifications are evident. There is age-indeterminate irregularity the right inferior pubic ramus. There is air within soft tissues consistent with recent surgery. Overlying skin augustus are evident. IMPRESSION: Postsurgical changes status post bipolar right hip arthroplasty. Electronically signed by: Oscar Gentile M.D. 11/30/2016 11:33 AM Dictated Date/Time: 11/30/2016 11:32 AM
--- NOTE | 2016-11-30 11:39 | Anesthesiology Progress Note ---
Anesthesia Post Op Note Date & Time Nov 30, 2016 at 11:39 Vital Signs Pain Intensity: 0 Vital Signs Past 12 Hours Date Time Temp Pulse Resp B/P (MAP) Pulse Ox O2 Delivery O2 Flow Rate FiO2 11/30/16 11:30 67 14 119/65 100 Oxymask 10 11/30/16 11:20 36.7 69 14 134/64 100 Nasal Cannula 2 11/30/16 11:10 71 12 125/64 100 Oxymask 10 11/30/16 11:00 74 12 126/63 100 Oxymask 10 11/30/16 10:52 36.5 72 14 112/59 100 Oxymask 10 11/30/16 07:45 Room Air 11/30/16 06:44 36.8 61 17 116/52 (73) 92 Room Air 11/29/16 23:42 36.8 56 20 120/61 (80) 97 Room Air Notes Mental Status: alert / awake / arousable, participated in evaluation Pt Amnestic to Procedure: Yes Nausea / Vomiting: adequately controlled Pain: adequately controlled Airway Patency, RR, SpO2: stable & adequate BP & HR: stable & adequate Hydration State: stable & adequate Anesthetic Complications: no major complications apparent
[2016-11-30] MEDS ORDERED: NURSING VERBAL MED ORDER ONE (12:45)
--- NOTE | 2016-11-30 13:09 | Progress Note ---
Progress Note Date of Service Nov 30, 2016. After carefully reviewing the chart and the lab results I entered the room to examine the patient Patient's both daughters and were in the room, his daughter Mechelle and radha both has power of attorney lawyer. Stated clearly that they did not request an internal medicine physician on the case, she thinks that the reason for him being here is falling and fracture and that the orthopedic doctor is already on the case and taking care of it. I explained to her that someone with his age and his multiple medical conditions might require medical co care, She stated " she is the dosage and she is not happy camper , because she has a previous bad medical experience with other medical physicians " I told her that she has the right to refuse our medical help, and I can sign off the case with Dr. Alvarez agreed to be the primary. I paged Dr. Alvarez who kindly accepted to become the primary physician on the case. I signed off the case. I went back to the family and told them that we are off the case and to let us know if they need our help Belen Mondragon Hospitalist physician
[2016-11-30] MEDS: LACTATED RINGER'S 1000ML 1,000 ML IV SCH ×2 (13:15→23:15)
[2016-11-30 13:26] LABS: HEMATOCRIT 32.6 % (42-52)
--- NOTE | 2016-11-30 13:34 | OPERATIVE REPORT ---
DATE OF OPERATION: 11/30/2016 SURGEON: Aram Alvarez MD NUT STEAMER: Rishabh Turcios PA-C PREOPERATIVE DIAGNOSIS: Right displaced femoral neck fracture. POSTOPERATIVE DIAGNOSIS: Same. PROCEDURE PERFORMED: Right cemented bipolar hip arthroplasty. COMPLICATIONS: None. ESTIMATED BLOOD LOSS: 200 mL FLUID REPLACEMENT: 1000 mL crystalloid fluid replacement. ANESTHESIA: General. SPECIMENS: Right femoral head sent for pathology. OPERATIVE INDICATIONS: The patient is an 81-year-old who previously walked with use of cane, who sustained a fall yesterday. He had acute onset of pain and discomfort in his right hip. He was brought to the emergency room where x-rays revealed a displaced femoral neck fracture. The patient was admitted and medically optimized and indicated for surgical treatment. OPERATIVE FINDINGS: Operative findings revealed a displaced femoral neck fracture. Minimal arthritic change. No signs of underlying bone pathology. OPERATIVE IMPLANTS: Operative implants consisted of: 1. A Biomet generation 4, size 11 polished standard offset femoral stem. 2. A +3/28 mm articular ball. 3. A 50-mm bipolar shell and liner. 4. A size 12 distal centralizer. 5. A large cement restrictor. OPERATIVE PROCEDURE: The patient taken to the operating room, identified and placed on the operating table in supine position. All contact areas were appropriately padded. IV antibiotics were provided by the anesthesia team. The patient got 900 mg IV clindamycin due to his cephalosporin allergy. A general anesthetic was implemented by anesthesia team. The patient was then placed in the left lateral decubitus position. An axillary roll was placed. Stlberg hip positioner was used for positioning. The right hip and leg were then prepped and draped in the usual sterile fashion. A posterolateral approach to the right hip was then performed through a curvilinear incision centered over the greater trochanter. Sharp dissection was carried out through the subcutaneous tissues down to the level of the IT band and gluteal fascia. The IT band and gluteal fascia were incised longitudinally in line with the skin incision. The underlying greater trochanteric bursa was excised. The piriformis and external rotators were tagged and taken off the posterior aspect of the hip joint capsule. Great care was taken throughout the procedure to protect the sciatic nerve at all times. Posterior capsulotomy was then performed leaving 2 flaps for later repair. Hip was internally rotated and dislocated. Femoral neck osteotomy cut was made just below the level of the fracture site. Femoral head and the remaining portion of the femoral neck were removed and sent for pathology. Acetabulum was sized to a size 50. Attention was then drawn to the femur. The proximal femur was entered with cookie cutter followed by canal finder and lateralizing reamer. I then broached beginning with a size 7 and progressing up to 11. We then trialed the hip and the +3 articular ball, provided full stability and full extension and external rotation and flexion to 90 degrees and internal rotation to 70+ degrees. Soft tissue tension seemed appropriate. Leg lengths appeared equal. We elected to use these implants. All trial implants were removed. A cement restrictor was placed 15 cm down the canal. The canal was then irrigated extensively. A double batch of Palacos G cement was then mixed and injected into the canal. A size 11 Biomet polished femoral stem was then placed and the extraneous cement was removed and implant was held still until the cement hardened. Once the cement hardened, a +3/28 mm articular ball with the 50-mm bipolar shell and liner was placed. The hip was located and once again found to be stable. Attention was then drawn toward closing. The wound was once again irrigated. I injected locally with 30 mL of 0.5% Marcaine with epinephrine. The posterior capsule was then repaired with #2 Tycron suture. The external rotators were repaired to the posterior aspect of the hip abductors with #2 Ticron suture. The IT Band and gluteal fascia were then closed with #1 PDS suture in a running fashion. The subcutaneous tissues were then closed in 2 layers, the deep layer with #1 Vicryl suture and subcutaneous tissues with 2-0 Dexon suture in a buried interrupted fashion. Skin was closed skin augustus. The leg was then cleaned and dried and a sterile dressing of Xeroform, 4 x 4's, sterile ABD pad and foam tape was applied. The patient was then brought out of general anesthesia and transferred to the recovery room in stable condition. The patient tolerated the procedure well with no complications. All needle and sponge counts were correct at the end of the operation. I attest to the content of the Intraoperative Record and any orders documented therein. Any exceptions are noted below. NOE
[2016-11-30] MEDS: CLINDAMYCIN IV 600 MG in DEXTROSE 5% 50ML 50 ML IV SCH ×2 (14:05→21:41)
[2016-11-30] MEDS: MAGNESIUM OXIDE 400 MG TAB PO SCH (17:52)
[2016-11-30] MEDS: PANTOprazole SOD 40 MG TAB PO SCH (17:52)
[2016-11-30] MEDS: TAMSULOSIN HCL 0.4 MG CAP PO SCH (17:53)
[2016-11-30] MEDS: FERROUS SULFATE 325 MG TAB PO SCH (17:53)
[2016-11-30] MEDS: ONDANSETRON INJ 2 MG/ML 2 ML VIAL IV PRN (17:53)
[2016-11-30] MEDS ORDERED: DOCUSATE SODIUM/SENNA 50/8.6MG TAB PO SCH (21:00)
[2016-11-30] MEDS: DOCUSATE SODIUM/SENNA 50/8.6MG TAB PO SCH (21:41)
[2016-11-30] MEDS: SIMVASTATIN 40 MG TAB PO SCH (21:41)
[2016-11-30] MEDS: ASPIRIN/ALUM/MAGNES/CAL CARB 325 MG TAB PO SCH (21:41)
[2016-12-01 03:20] VITALS: BP 103/49; PULSE 79; TEMP 36.7; O2SAT 94
[2016-12-01] MEDS: LEVOTHYROXINE 75 MCG TAB PO SCH (05:56)
[2016-12-01 07:01] VITALS: BP 117/69; PULSE 78; TEMP 36.9; O2SAT 95
[2016-12-01 07:11] LABS: HEMATOCRIT 32.5 % (42-52); MEAN CELL VOLUME 92.3 fL (80-100); MEAN CORPUSCULAR HEMOGLOBIN 30.4 pg (25-34); MEAN CORPUSCULAR HGB CONC 32.9 g/dl (32-36); MEAN PLATELET VOLUME 9.7 fL (7.4-10.4); PLATELET COUNT 226 K/uL (130-400); RED BLOOD COUNT 3.52 M/uL (4.7-6.1); WHITE BLOOD COUNT 7.01 K/uL (4.8-10.8)
[2016-12-01 07:45] LABS: BUN/CREATININE RATIO 11.9 (10-20); CALCIUM 8.2 mg/dl (8.5-10.1); CREATININE 0.91 mg/dl (0.60-1.40); MAGNESIUM 1.7 mg/dl (1.8-2.4); POTASSIUM 4.2 mmol/L (3.5-5.1)
--- NOTE | 2016-12-01 07:56 | PROGRESS NOTE ---
DATE: 12/01/2016 SUBJECTIVE: This is an 81-year-old gentleman postop day 1 from right cemented bipolar hip arthroplasty for fracture. He is doing well. He denies any pain. No chest pain or shortness of breath. He is awake, alert and oriented. OBJECTIVE: VITAL SIGNS: Temperature is 36.9. Vital signs stable. GENERAL: Reveals a pleasant elderly male. He is sitting up in bed and looks quite comfortable. EXTREMITIES: Examination of the right hip and leg reveals the leg to be well aligned. Dressing is clean, dry and intact. Thigh is soft and supple. Hip is located. He is neurologically intact. LABORATORY DATA: Hemoglobin 10.7. Hematocrit 32.5. Electrolytes are pending. ASSESSMENT: An 81-year-old gentleman postop day 1 from right cemented bipolar hip arthroplasty for fracture, doing well. His pain is controlled. He looks pretty much at baseline. PLAN: 1. DVT prophylaxis including thigh-high TEDs, SCDs, and aspirin twice a day. 2. PT/OT. Weightbearing as tolerated. Right total hip protocol. 3. Pain control. Doing well with current pain regimen. We will try and limit narcotic use to avoid confusion 4. Medical management as per the medicine service. 5. Disposition: Social service is on the case. He will need a rehab stay.
[2016-12-01] MEDS: INSULIN ASPART 100 UNITS/ML 3 ML PEN SC SCH ×4 (08:00→20:43)
--- NOTE | 2016-12-01 08:14 | PROGRESS NOTE ---
DATE: 11/30/2016 SUBJECTIVE: This 81-year-old gentleman admitted yesterday with displaced femoral neck fracture from a mechanical fall. He is a previous independent ambulator with the use of a cane. No preexisting hip pain. No other complaints. Isolated hip pain. No other pains. He has been admitted by the hospitalist service and optimized and now indicated for surgical treatment of this hip. OBJECTIVE: VITAL SIGNS: Temperature 36.8. Vital signs stable. GENERAL: Physical examination reveals a pleasant elderly male. He is quite thin and cachectic in appearance. He is leaning a kind of on his left side. EXTREMITIES: Examination of the right hip reveals it to be slightly shortened and externally rotated. He has got marked pain with any type of hip motion. There are no abrasions. No knee effusion. He is neurologically intact. LABORATORY DATA: Hemoglobin 11.5 and hematocrit 34.8. Electrolytes are stable. ASSESSMENT: An 81-year-old male with multiple underlying medical comorbidities with a right displaced femoral neck fracture. He does have a history of colon cancer, but no signs of pathology in the bone. No significant hip arthritis. The patient has been medically optimized and is indicated for surgical treatment. PLAN: We are going to take him to the operating room and do a right cemented bipolar hip arthroplasty. The risks and benefits of this procedure were explained to the patient and his family once again. Informed consent has been obtained. He certainly got multiple comorbidities and relatively high risk from that standpoint, but it looks to be medically optimized. We will continue DVT prophylaxis including thigh-high TEDs, SCDs, and likely aspirin postoperatively. He will likely need a rehab stay.
[2016-12-01] MEDS ORDERED: ERGOCALCIFEROL 50,000 INTER.UNIT CAP PO SCH (09:00)
[2016-12-01] MEDS: ONDANSETRON INJ 2 MG/ML 2 ML VIAL IV PRN ×2 (09:03→18:14)
[2016-12-01] MEDS: CAPECITABINE 500 MG TAB PO SCH ×2 (09:20→18:34)
[2016-12-01] MEDS: ASPIRIN/ALUM/MAGNES/CAL CARB 325 MG TAB PO SCH ×2 (09:51→20:40)
[2016-12-01] MEDS: TAMSULOSIN HCL 0.4 MG CAP PO SCH (10:13)
[2016-12-01] MEDS: PANTOprazole SOD 40 MG TAB PO SCH (10:13)
[2016-12-01] MEDS: FERROUS SULFATE 325 MG TAB PO SCH (10:13)
[2016-12-01] MEDS: MAGNESIUM OXIDE 400 MG TAB PO SCH (10:13)
[2016-12-01] MEDS: BOOST VANILLA PO SCH ×4 (10:36→17:45)
[2016-12-01 12:03] VITALS: BP 96/57; PULSE 77; TEMP 37; O2SAT 96
[2016-12-01 18:15] VITALS: BP 101/56; PULSE 83; TEMP 37.4; O2SAT 96
[2016-12-01 18:33] VITALS: O2SAT 96
[2016-12-01] MEDS: SIMVASTATIN 40 MG TAB PO SCH (20:40)
[2016-12-01] MEDS: DOCUSATE SODIUM/SENNA 50/8.6MG TAB PO SCH (20:40)
[2016-12-01] MEDS ORDERED: RXC5 PO (21:30)
[2016-12-01] MEDS ORDERED: ASPI325T60 PO (21:30)
[2016-12-01] MEDS ORDERED: FRRS300 PO (21:30)
--- NOTE | 2016-12-01 21:33 | Discharge Instructions ---
Discharge Instructions Date of Service Dec 01, 2016. Admission Reason for Admission: Hip Fracture Discharge Discharge Diagnosis / Problem: Right Hip Arthroplasty for Fracture Discharge Goals Goal(s): Decrease discomfort, Improve function, Increase independence, Improve disease control, Therapeutic intervention Activity Recommendations Activity Level: Assistance Required Therapies: Physical Therapy (Total Hip Precautions), Occupational Therapy Weightbearing Status: Right weightbearing . Additional Information Patient informed of condition: Yes Advance Directives: Yes DNR: No Level of Care: Acute Rehab Communicable Disease: No Prognosis: Improving Instructions / Follow-Up Instructions / Follow-Up ACTIVITY RECOMMENDATIONS: Physical Therapy: * Aggressive physical therapy is not usually needed. You will learn to take care of yourself safely and walk. * Follow the "Hip Precautions Instructions." * In some cases, the long term care social worker at the hospital will arrange to have a therapist come to your house for the first couple of weeks to help you learn these skills. * You need to practice on your own or with the help of a family member as needed. * When you learn these skills, most of the therapy can be done on your own. Home Exercise: * You were shown a series of exercises in the hospital. Do these exercises three to four times each day including the exercises you were shown in physical therapy. Walking: * Get up and walk several times each day. For the first four weeks, try not to stand or walk for more than one hour at a time. If you do stand or walk for more than one hour, you will not hurt anything, but your leg will likely swell. * As you feel comfortable, you may change from the walker or crutches to a cane and then to independent walking. MEDICATIONS: New Medicine: * You will likely be taking one or more of these medicines: 1. Oxycodone - Take, as directed, when you need it, every four to six hours to control your pain. 2. Iron Sulfate - Take three times each day for the month after surgery to help you replace the blood lost during surgery. 3. Aspirin - Thins your blood to lessen the chance of forming a blood clot. * The most common side effects of pain medicine and iron are nausea and constipation. If nausea or constipation is too much of a problem or if you have any questions about your new medicines or doses, call [facility] at [phone]. We will try to help you manage these issues. VERY IMPORTANT TO READ AND REVIEW" Pain: * The immediate post-operative period after hip replacement surgery is often quite painful. * You are given a prescription for pain medicine. You should take it, as directed, when you need it, especially before physical therapy and before going to bed. Pain that interferes with sleep is very common and can last several months. * You will likely need pain medicine for the first two to four weeks. It will not stop all of the pain. The pain will lessen and as you feel better, you may change to milder pain medicine such as Tylenol. * The most common side effects of pain medicine are nausea and constipation, so don't take more than you need. SPECIAL CARE INSTRUCTIONS: TEDs/Elastic Stockings: * The white elastic stockings help limit swelling and prevent blood clots from forming in your legs. The more you wear them, the more they work. * Wear them for six weeks. Prevention of Infection: * Take antibiotics one hour before any dental cleaning, dental work, urological procedure, gastrointestinal procedure or any invasive surgery in order to prevent your new joint from getting infected. * You may get the antibiotics from the doctor performing the procedure or you may call our office at before and we will call in a prescription to the pharmacy of your choice. Things to Watch For: * Drainage from the incision site that occurs more than one week after your surgery. * Severely increased leg pain or swelling. * Increased redness at the incision site. * Fever above 102 degrees Fahrenheit. * Unusual chest pain or shortness of breath. * Unusual pain or burning with urination. Call [facility] at with any of the above problems or if you have any questions about your medicines or recovery. FOLLOW UP VISIT: Make an appointment to see your doctor for approximately two weeks after surgery for a progress check and staple removal by calling the office at . Current Hospital Diet Patient's current hospital diet: Diabetes Type 2 Diet Discharge Diet Recommended Diet: Diabetes Type 2 Diet Procedures Procedures Performed: RIGHT CEMENTED BIPOLAR HIP Pending Studies Studies pending at discharge: no Laboratory Results Hemoglobin A1c Test 11/30/16 05:04 Range/Units Estimated Average Glucose 126 mg/dl Hemoglobin A1c 6.0 H 4.5-5.6 % Medical Emergencies . Who to Call and When: Medical Emergencies: If at any time you feel your situation is an emergency, please call 911 immediately. . Non-Emergent Contact Non-Emergency issues call your: Surgeon . . "Provider Documentation" section prepared by Aram Alvarez. . Core Measure Problem Core Measures: None
[2016-12-01 23:05] VITALS: BP 102/53; PULSE 77; TEMP 36.7; O2SAT 97
[2016-12-02] MEDS: LEVOTHYROXINE 75 MCG TAB PO SCH (05:53)
[2016-12-02] MEDS: POLYETHYLENE (MIRALAX) 17 GM PACK PO SCH ×4 (05:53→23:46)
[2016-12-02 06:41] VITALS: BP 110/65; PULSE 70; TEMP 36.4; O2SAT 97
[2016-12-02 06:58] LABS: HEMATOCRIT 30.1 % (42-52); MEAN CORPUSCULAR HEMOGLOBIN 30.3 pg (25-34); MEAN CORPUSCULAR HGB CONC 32.9 g/dl (32-36); MEAN PLATELET VOLUME 9.8 fL (7.4-10.4); PLATELET COUNT 209 K/uL (130-400); RED BLOOD COUNT 3.27 M/uL (4.7-6.1); WHITE BLOOD COUNT 6.01 K/uL (4.8-10.8)
[2016-12-02] MEDS: INSULIN ASPART 100 UNITS/ML 3 ML PEN SC SCH ×4 (07:09→21:00)
[2016-12-02] MEDS: BOOST VANILLA PO SCH ×4 (07:25→17:57)
[2016-12-02] MEDS: ASPIRIN/ALUM/MAGNES/CAL CARB 325 MG TAB PO SCH ×2 (07:27→21:23)
[2016-12-02] MEDS: FERROUS SULFATE 325 MG TAB PO SCH (07:27)
[2016-12-02] MEDS: TAMSULOSIN HCL 0.4 MG CAP PO SCH (07:28)
[2016-12-02] MEDS: MAGNESIUM OXIDE 400 MG TAB PO SCH (07:28)
[2016-12-02] MEDS: PANTOprazole SOD 40 MG TAB PO SCH (07:28)
[2016-12-02] MEDS: CAPECITABINE 500 MG TAB PO SCH ×2 (07:29→19:20)
[2016-12-02 07:33] LABS: BUN/CREATININE RATIO 15.5 (10-20); CALCIUM 8.8 mg/dl (8.5-10.1); CREATININE 0.83 mg/dl (0.60-1.40); MAGNESIUM 1.9 mg/dl (1.8-2.4)
[2016-12-02 09:14] VITALS: BP 104/67; PULSE 74; O2SAT 98
--- NOTE | 2016-12-02 12:26 | PROGRESS NOTE ---
DATE: 12/02/2016 SUBJECTIVE: This is an 81-year-old gentleman postop day 2 from a right cemented bipolar hip arthroplasty for fracture. He is doing well. Denies any pain. He states therapy is going well. No chest pain or shortness of breath. OBJECTIVE: VITAL SIGNS: Temperature is 36.4. Vital signs stable. GENERAL: Reveals a pleasant elderly male. He is lying in bed and was shaving this morning when I went to see him. EXTREMITIES: Examination of the right hip reveals the dressing to be clean, dry and intact. Leg lengths were equal. His hip is located. NEUROLOGIC: He is neurologically intact. LABORATORY DATA: Hemoglobin 9.9, hematocrit 30.1. Electrolytes are stable. ASSESSMENT: An 81-year-old gentleman postop day 2 from a right cemented bipolar hip arthroplasty, doing quite well. His pain is controlled. Therapy has gone pretty well. He is anemic without symptoms. PLAN: 1. DVT prophylaxis including thigh-high TEDs, SCDs, and aspirin twice a day. 2. PT/OT. Weight bear as tolerated. Right total hip protocol. 3. Pain control. Doing well with current pain regimen. 4. Medical management as per the medicine service. 5. Disposition: He is orthopedically stable and acceptable for discharge to rehab any time medically stable. We are waiting for approval for [facility].
[2016-12-02 16:53] VITALS: BP 116/67; PULSE 70; TEMP 36.9; O2SAT 97
[2016-12-02] MEDS: ONDANSETRON INJ 2 MG/ML 2 ML VIAL IV PRN ×2 (17:57→19:17)
[2016-12-02] MEDS: SIMVASTATIN 40 MG TAB PO SCH (21:23)
[2016-12-02] MEDS: DOCUSATE SODIUM/SENNA 50/8.6MG TAB PO SCH (21:23)
[2016-12-02 23:18] VITALS: BP 110/67; PULSE 70; TEMP 36.6; O2SAT 97
[2016-12-03] MEDS: POLYETHYLENE (MIRALAX) 17 GM PACK PO SCH ×3 (05:11→18:00)
[2016-12-03] MEDS: LEVOTHYROXINE 75 MCG TAB PO SCH (05:35)
[2016-12-03 07:04] VITALS: BP 109/61; PULSE 62; TEMP 36.8; O2SAT 99
[2016-12-03] MEDS: BOOST VANILLA PO SCH ×4 (08:30→17:28)
[2016-12-03] MEDS: INSULIN ASPART 100 UNITS/ML 3 ML PEN SC SCH ×4 (08:46→20:52)
[2016-12-03] MEDS: PANTOprazole SOD 40 MG TAB PO SCH (08:47)
[2016-12-03] MEDS: TAMSULOSIN HCL 0.4 MG CAP PO SCH (08:48)
[2016-12-03] MEDS: FERROUS SULFATE 325 MG TAB PO SCH (08:48)
[2016-12-03] MEDS: ASPIRIN/ALUM/MAGNES/CAL CARB 325 MG TAB PO SCH ×2 (08:48→20:53)
[2016-12-03] MEDS: MAGNESIUM OXIDE 400 MG TAB PO SCH (08:49)
[2016-12-03] MEDS: CAPECITABINE 500 MG TAB PO SCH ×2 (08:49→19:00)
[2016-12-03 15:00] VITALS: BP 100/61; PULSE 62; TEMP 36.6; O2SAT 98
[2016-12-03] MEDS: ONDANSETRON INJ 2 MG/ML 2 ML VIAL IV PRN (17:27)
--- NOTE | 2016-12-03 17:34 | Discharge Instructions ---
Discharge Instructions Date of Service Dec 03, 2016. Admission Reason for Admission: Hip Fracture Discharge Discharge Diagnosis / Problem: Right Hip Arthroplasty for fracture Discharge Goals Goal(s): Decrease discomfort, Improve function, Increase independence, Improve disease control, Therapeutic intervention Activity Recommendations Activity Limitations: per Instructions/Follow-up section (Total Hip Precautions ) Weightbearing Status: Right weightbearing . Instructions / Follow-Up Instructions / Follow-Up ACTIVITY RECOMMENDATIONS: Physical Therapy: * Aggressive physical therapy is not usually needed. You will learn to take care of yourself safely and walk. * Follow the "Hip Precautions Instructions." * In some cases, the social work supervisor at the hospital will arrange to have a therapist come to your house for the first couple of weeks to help you learn these skills. * You need to practice on your own or with the help of a family member as needed. * When you learn these skills, most of the therapy can be done on your own. Home Exercise: * You were shown a series of exercises in the hospital. Do these exercises three to four times each day including the exercises you were shown in physical therapy. Walking: * Get up and walk several times each day. For the first four weeks, try not to stand or walk for more than one hour at a time. If you do stand or walk for more than one hour, you will not hurt anything, but your leg will likely swell. * As you feel comfortable, you may change from the walker or crutches to a cane and then to independent walking. MEDICATIONS: New Medicine: * You will likely be taking one or more of these medicines: 1. Oxycodone - Take, as directed, when you need it, every four to six hours to control your pain. 2. Iron Sulfate - Take two times each day for the month after surgery to help you replace the blood lost during surgery. * The most common side effects of pain medicine and iron are nausea and constipation. If nausea or constipation is too much of a problem or if you have any questions about your new medicines or doses, call [facility] at . We will try to help you manage these issues. VERY IMPORTANT TO READ AND REVIEW" Pain: * The immediate post-operative period after hip replacement surgery is often quite painful. * You are given a prescription for pain medicine. You should take it, as directed, when you need it, especially before physical therapy and before going to bed. Pain that interferes with sleep is very common and can last several months. * You will likely need pain medicine for the first two to four weeks. It will not stop all of the pain. The pain will lessen and as you feel better, you may change to milder pain medicine such as Tylenol. * The most common side effects of pain medicine are nausea and constipation, so don't take more than you need. SPECIAL CARE INSTRUCTIONS: TEDs/Elastic Stockings: * The white elastic stockings help limit swelling and prevent blood clots from forming in your legs. The more you wear them, the more they work. * Wear them for six weeks. Prevention of Infection: * Take antibiotics one hour before any dental cleaning, dental work, urological procedure, gastrointestinal procedure or any invasive surgery in order to prevent your new joint from getting infected. * You may get the antibiotics from the doctor performing the procedure or you may call our office at before and we will call in a prescription to the pharmacy of your choice. Things to Watch For: * Drainage from the incision site that occurs more than one week after your surgery. * Severely increased leg pain or swelling. * Increased redness at the incision site. * Fever above 102 degrees Fahrenheit. * Unusual chest pain or shortness of breath. * Unusual pain or burning with urination. Call [facility] at with any of the above problems or if you have any questions about your medicines or recovery. FOLLOW UP VISIT: Make an appointment to see your doctor for approximately two weeks after surgery for a progress check and staple removal by calling the office at . Current Hospital Diet Patient's current hospital diet: Diabetes Type 2 Diet Discharge Diet Recommended Diet: Diabetes Type 2 Diet Procedures Procedures Performed: RIGHT CEMENTED BIPOLAR HIP Pending Studies Studies pending at discharge: no Laboratory Results Hemoglobin A1c Test 11/30/16 05:04 Range/Units Estimated Average Glucose 126 mg/dl Hemoglobin A1c 6.0 H 4.5-5.6 % Medical Emergencies . Who to Call and When: Medical Emergencies: If at any time you feel your situation is an emergency, please call 911 immediately. . Non-Emergent Contact Non-Emergency issues call your: Surgeon . "Provider Documentation" section prepared by Aram Alvarez. . VTE Core Measure Inpt VTE Proph given/why not?: Other Anticoagulation, T.E.D. Stockings, SCD's, Contraindicated
--- NOTE | 2016-12-03 18:28 | PROGRESS NOTE ---
DATE: 12/03/2016 SUBJECTIVE: An 81-year-old gentleman postop day #3 from right cemented bipolar hip arthroplasty for fracture. He is doing well. Not having much pain. He has apparently been denied [facility]. They are in the process of possibly appealing. He is thinking about going home with home health. OBJECTIVE: VITAL SIGNS: Temperature 36.6. Vital signs stable. EXTREMITIES: Examination of right hip and leg reveals the wound to be clean, dry and intact. Leg lengths were equal. Thigh is soft and supple. Minimal swelling. He is neurologically intact. ASSESSMENT: An 81-year-old gentleman postop day #3 from a right cemented bipolar hip arthroplasty for fracture, doing quite well. He has been denied rehabilitation. They are considering going home with home health. PLAN: 1. DVT prophylaxis including thigh-high TEDs, SCDs, and aspirin twice a day. 2. PT/OT. Weightbearing as tolerated. Right total hip protocol. 3. Pain control, doing well with current pain regimen. 4. Disposition: We will likely send 1him home tomorrow with some home health after morning therapy, as long as his family approves that. Otherwise, will have into further senior living facilities.
[2016-12-03] MEDS: DOCUSATE SODIUM/SENNA 50/8.6MG TAB PO SCH (20:53)
[2016-12-03] MEDS: SIMVASTATIN 40 MG TAB PO SCH (20:53)
[2016-12-03] MEDS ORDERED: NURSING VERBAL MED ORDER ONE (23:15)
[2016-12-03 23:46] VITALS: BP 100/53; PULSE 72; TEMP 36.7; O2SAT 98
[2016-12-04] MEDS: LEVOTHYROXINE 75 MCG TAB PO SCH (05:42)
[2016-12-04 07:01] VITALS: BP 103/61; PULSE 60; TEMP 36.6; O2SAT 98
[2016-12-04] MEDS: INSULIN ASPART 100 UNITS/ML 3 ML PEN SC SCH ×2 (08:00→12:00)
[2016-12-04] MEDS: FERROUS SULFATE 325 MG TAB PO SCH (08:14)
[2016-12-04] MEDS: PANTOprazole SOD 40 MG TAB PO SCH ×2 (08:14→08:32)
[2016-12-04] MEDS: TAMSULOSIN HCL 0.4 MG CAP PO SCH (08:15)
[2016-12-04] MEDS: ASPIRIN/ALUM/MAGNES/CAL CARB 325 MG TAB PO SCH (08:15)
[2016-12-04] MEDS: MAGNESIUM OXIDE 400 MG TAB PO SCH (08:15)
[2016-12-04] MEDS: CAPECITABINE 500 MG TAB PO SCH (08:16)
[2016-12-04] MEDS: BOOST VANILLA PO SCH ×2 (08:31)
[2016-12-04 13:02] VITALS: BP 103/61; PULSE 60; TEMP 36.6; O2SAT 98
== END 2016-12-04 14:10 | disposition home health service (06) | DRG 470 ==
LOC: EDBD 10:53 → C.EDC 10:54 → C.MSW 13:06 → ENRESERV 13:55
PROVIDERS: ADMIT Internal Medicine; ATTEND Orthopaedic Surgery Sports Medicine
PROC: 0SR90J9 Replacement of Right Hip Joint with Synthetic Substitute, Cemented, Open Approach (ICD-10-PCS; principal; 2016-11-30 07:30)
DX: S72.011A Unspecified intracapsular fracture of right femur, initial encounter for closed fracture (principal); C18.9 Malignant neoplasm of colon, unspecified; C78.7 Secondary malignant neoplasm of liver and intrahepatic bile duct; W19.XXXA Unspecified fall, initial encounter; Y92.008 Other place in unspecified non-institutional (private) residence as the place of occurrence of the external cause; Z93.3 Colostomy status; I25.10 Atherosclerotic heart disease of native coronary artery without angina pectoris; E11.9 Type 2 diabetes mellitus without complications; E03.9 Hypothyroidism, unspecified; D50.9 Iron deficiency anemia, unspecified; N40.0 Benign prostatic hyperplasia without lower urinary tract symptoms; K21.9 Gastro-esophageal reflux disease without esophagitis; E78.00 Pure hypercholesterolemia, unspecified; I25.2 Old myocardial infarction; Z87.442 Personal history of urinary calculi; Z87.891 Personal history of nicotine dependence; Z79.82 Long term (current) use of aspirin; Z79.899 Other long term (current) drug therapy; Z88.0 Allergy status to penicillin; Z88.1 Allergy status to other antibiotic agents; Z88.2 Allergy status to sulfonamides; Z88.5 Allergy status to narcotic agent; Z82.49 Family history of ischemic heart disease and other diseases of the circulatory system; Z83.3 Family history of diabetes mellitus; Z84.1 Family history of disorders of kidney and ureter

== ENCOUNTER → 2016-12-19 | Outpatient (CLI) | payer OTHER ==
[~2016-12-19] MED LIST changes: +ASPI325T60 PO; -ASPI81TA28 PO; -CAPE150T PO; -FERR1TAB23 PO; +FRRS300 PO; -LEVO50TA6 PO; +RXC5 PO; +SYN75 PO
[2016-12-19 11:28] LABS: BASO % 0.4 %; BASO ABS # 0.03 K/uL (0-0.2); EOS % 1.2 %; HEMATOCRIT 32.4 % (42-52); IG% 0.1 %; LYMPH % 27.1 %; LYMPH ABS # 2.22 K/uL (1.2-3.4); MEAN CELL VOLUME 95.6 fL (80-100); MEAN CORPUSCULAR HEMOGLOBIN 30.4 pg (25-34); MONO % 12.2 %; PLATELET COUNT 478 K/uL (130-400); RED BLOOD COUNT 3.39 M/uL (4.7-6.1); WHITE BLOOD COUNT 8.19 K/uL (4.8-10.8)
[2016-12-19 11:31] LABS: COMPLETE YES; MEAN CORPUSCULAR HGB CONC 31.8 g/dl (32-36)
[2016-12-19 11:48] LABS: ALT/SGPT 30 U/L (12-78); AST/SGOT 28 U/L (15-37); BLOOD UREA NITROGEN 17 mg/dl (7-18); BUN/CREATININE RATIO 20.5 (10-20); CARBON DIOXIDE 27 mmol/L (21-32); CHLORIDE 104 mmol/L (98-107); CREATININE 0.82 mg/dl (0.60-1.40); GLUCOSE 134 mg/dl (70-99); SODIUM 136 mmol/L (136-145)
[2016-12-19 11:51] LABS: ALB/GLOB RATIO 0.6 (0.9-2); ALKALINE PHOSPHATASE 114 U/L (45-117)
== END | disposition home or self-care (01) ==
LOC: C.LAB1850 11:01
PROVIDERS: ATTEND Internal Medicine Hematology & Oncology
DX: C18.9 Malignant neoplasm of colon, unspecified (principal)

== ENCOUNTER → 2017-01-05 | Outpatient (CLI) | payer OTHER ==
[2017-01-05 12:42] LABS: BASO % 0.2 %; BASO ABS # 0.02 K/uL (0-0.2); COMPLETE YES; EOS % 1.8 %; HEMATOCRIT 31.6 % (42-52); IG% 0.2 %; LYMPH % 21.9 %; LYMPH ABS # 1.93 K/uL (1.2-3.4); MEAN CELL VOLUME 95.2 fL (80-100); MEAN CORPUSCULAR HEMOGLOBIN 30.1 pg (25-34); MEAN CORPUSCULAR HGB CONC 31.6 g/dl (32-36); MEAN PLATELET VOLUME 10.1 fL (7.4-10.4); MONO % 6.5 %; NEUT % 69.4 %; PLATELET COUNT 392 K/uL (130-400); RED BLOOD COUNT 3.32 M/uL (4.7-6.1); WHITE BLOOD COUNT 8.81 K/uL (4.8-10.8)
[2017-01-05 14:08] LABS: CHOLESTEROL/HDL RATIO 2.1
[2017-01-05 14:11] LABS: ALT/SGPT 19 U/L (12-78); AST/SGOT 24 U/L (15-37); BLOOD UREA NITROGEN 16 mg/dl (7-18); BUN/CREATININE RATIO 16.6 (10-20); CALCIUM 8.5 mg/dl (8.5-10.1); CARBON DIOXIDE 24 mmol/L (21-32); CHLORIDE 102 mmol/L (98-107); CREATININE 0.98 mg/dl (0.60-1.40); GLUCOSE 143 mg/dl (70-99); POTASSIUM 4.6 mmol/L (3.5-5.1); SODIUM 133 mmol/L (136-145)
[2017-01-05 14:14] LABS: ALB/GLOB RATIO 0.7 (0.9-2); ALKALINE PHOSPHATASE 93 U/L (45-117)
== END | disposition home or self-care (01) ==
LOC: C.LAB1850 10:29
PROVIDERS: ATTEND Internal Medicine Cardiovascular Disease
DX: C18.7 Malignant neoplasm of sigmoid colon (principal); E78.00 Pure hypercholesterolemia, unspecified

== ENCOUNTER → 2017-01-12 | Outpatient (CLI) | payer OTHER ==
[2017-01-12 11:07] LABS: BASO % 0.1 %; BASO ABS # 0.01 K/uL (0-0.2); EOS % 0.4 %; HEMATOCRIT 37.2 % (42-52); IG% 0.1 %; LYMPH % 15.7 %; LYMPH ABS # 1.08 K/uL (1.2-3.4); MEAN CELL VOLUME 94.7 fL (80-100); MEAN CORPUSCULAR HEMOGLOBIN 30.5 pg (25-34); MEAN PLATELET VOLUME 9.8 fL (7.4-10.4); MONO % 19.4 %; NEUT % 64.3 %; PLATELET COUNT 392 K/uL (130-400); RED BLOOD COUNT 3.93 M/uL (4.7-6.1)
[2017-01-12 11:16] LABS: MEAN CORPUSCULAR HGB CONC 32.3 g/dl (32-36)
[2017-01-12 11:30] LABS: ALT/SGPT 21 U/L (12-78); BLOOD UREA NITROGEN 22 mg/dl (7-18); BUN/CREATININE RATIO 17.3 (10-20); CALCIUM 9.2 mg/dl (8.5-10.1); CARBON DIOXIDE 26 mmol/L (21-32); CHLORIDE 99 mmol/L (98-107); CREATININE 1.25 mg/dl (0.60-1.40); GLUCOSE 166 mg/dl (70-99); POTASSIUM 4.3 mmol/L (3.5-5.1); SODIUM 133 mmol/L (136-145)
[2017-01-12 11:33] LABS: ALB/GLOB RATIO 0.7 (0.9-2); ALKALINE PHOSPHATASE 100 U/L (45-117); AST/SGOT 22 U/L (15-37)
[2017-01-12 11:48] LABS: ANISOCYTOSIS PRESENT; COMPLETE YES
== END | disposition home or self-care (01) ==
LOC: C.LAB1850 10:42
PROVIDERS: ATTEND Internal Medicine Hematology & Oncology
DX: C18.7 Malignant neoplasm of sigmoid colon (principal)

== ENCOUNTER 2017-01-17 15:29 | Observation (INO) | payer OTHER ==
[~2017-01-17] VITALS: Ht 167.6 cm; Wt 54.0 kg
[2017-01-17 15:39] VITALS: Ht 167.6 cm; Wt 54.0 kg
[2017-01-17] MEDS ORDERED: SODIUM CHLORIDE 0.9% 1000ML 1,000 ML IV STA (16:08)
--- NOTE | 2017-01-17 16:09 | EMERGENCY ROOM VISIT NOTE ---
History Report prepared by Vance: Cosme Dozier Under the Supervision of: Dr. Boyd Whipple M.D. First contact with patient: 15:55 Chief Complaint: DEHYDRATION Stated Complaint: DEHYDRATED Nursing Triage Summary: pt here for dehydration pt had vomiting 4 times on Thursday [facility] pt has had no more n/v but "feels dry" stage 4 colon cancer History of Present Illness The patient is an 81 year old male who presents to the Emergency Room with complaints of persistent dehydration that started over the past couple days. He says that he had a "flu bug" 4 days ago, and vomited 4 times that day, but the nausea and vomiting has since resolved. Per the patient's family, the patient received a half a bag of fluid at the [facility] 3 days ago, but they do not think that the patient received enough fluid, because the patient states that he still feels "hoarse" and "raspy". He notes that he has been drinking and eating well the past few days. The patient denies any fevers, chills, cough, congestion, headaches, abdominal pain, chest pain, shortness of breath, or chest pain. He notes that he still feels somewhat tired however. The patient's last week of chemo is coming up next week per the patient's family. Source of History: patient, family Onset: Over past couple days Position: other (global - dehydration) Quality: other (feels "hoarse" and dry) Timing: other (persistent) Associated Symptoms: + nausea (has since resolved), + vomiting (has since resolved), + fatigue, No fevers, No chills, No headache, No cough (or congestion ), No chest pain, No SOB, No abdominal pain Note: No other associated symptoms noted. Review of Systems See HPI for pertinent positives and negatives. A total of ten systems were reviewed and were otherwise negative. Past Medical & Surgical Medical Problems: (1) Colon cancer (2) Coronary artery disease (3) Hip fracture (4) Hypercholesteremia (5) Hypertension (6) Hyponatremia (7) Kidney stones (8) Myocardial infarct (9) Pleural effusion (10) SBO (small bowel obstruction) (11) Vertigo Family History Cancer Diabetes mellitus FHx: heart disease FHx: kidney disease/stones Social History Smoking Status: Former Smoker Alcohol Use: none Drug Use: none Marital Status: Housing Status: lives with significant other Occupation Status: retired Current/Historical Medications Scheduled Aspirin Buffered (Marvin Carb-Mag (Tri-Buffered Aspirin), 325 MG PO BID Capecitabine (Xeloda), 500 MG PO UD Ergocalciferol (Vitamin D 39543 Unit), 50,000 UNIT PO 2XWK Ferrous Sulfate (Ferrous Sulfate), 325 MG PO BIDM Levothyroxine Sodium (Synthroid), 75 MG PO QAM Magnesium Oxide (Mag-Ox), 400 MG PO DAILY Nitroglycerin (Nitrostat), 0.4 MG UT PRN Nutritional Supplements (Boost), 1 CAN PO DAILY Omeprazole (Prilosec), 20 MG PO QPM Simethicone (Mylanta Gas Minis), 311 MG PO DIRECTED Simvastatin (Zocor), 40 MG PO QPM Tamsulosin Hcl (Flomax), 0.4 MG PO NOON Scheduled PRN Loperamide Hcl (Loperamide Hcl), 2 MG PO Q6H PRN for Diarrhea Ondansetron Hcl (Zofran), 8 MG PO Q8 PRN for Nausea Oxycodone HCl (Oxycodone HCl), 5 MG PO Q4H PRN for Moderate pain (pain scale 4-6 ) Allergies Coded Allergies: Clarithromycin (Verified Allergy, Severe, "MAJOR RXN" ?, 01/17/17) Penicillins (Verified Allergy, Severe, "MAJOR RXN" ?, 01/17/17) Sulfa Antibiotics (Verified Allergy, Severe, "SULFA DRUGS": "MAJOR RXN"?, 01/17/17) Cephalosporins (Verified Allergy, Unknown, ?, 01/17/17) Diltiazem (Verified Allergy, Unknown, FLUSHING, 01/17/17) Morphine (Verified Allergy, Unknown, N/V, 01/17/17) Streptokinase (Verified Allergy, Unknown, ?, 01/17/17) Sulfonylureas (Verified Allergy, Unknown, RASH, 01/17/17) Codeine (Verified Adverse Reaction, Mild, NAUSEA / VOMITING, 01/17/17) Physical Exam Vital Signs Date Time Temp Pulse Resp B/P (MAP) Pulse Ox O2 Delivery O2 Flow Rate FiO2 01/17/17 17:30 73 15 117/53 98 Room Air 01/17/17 17:00 69 116/71 100 Room Air 01/17/17 16:48 66 01/17/17 16:40 66 11 109/54 01/17/17 15:39 36.4 78 20 101/60 98 Physical Exam GENERAL: Awake, alert, chronically ill-appearing, cachectic, fatigued, in no distress HENT: Normocephalic, atraumatic. Dry cracked mucous membranes. EYES: Normal conjunctiva. Sclera non-icteric. NECK: Supple. No nuchal rigidity. FROM. No JVD. RESPIRATORY: Clear to auscultation. CARDIAC: Regular rate, normal rhythm. Extremities warm and well perfused. Pulses equal. ABDOMEN: Soft, non-distended. No tenderness to palpation. No rebound or guarding. No masses. RECTAL: Deferred. MUSCULOSKELETAL: Chest examination reveals no tenderness. The back is symmetrical on inspection without obvious abnormality. There is no CVA tenderness to palpation. No joint edema. LOWER EXTREMITIES: Calves are equal size bilaterally and non-tender. No edema. No discoloration. NEURO: Normal sensorium. No sensory or motor deficits noted. SKIN: No rash or jaundice noted. Medical Decision & Procedures ER Provider Diagnostic Interpretation: X-ray: Per my interpretation, radiologist review. CHEST ONE VIEW PORTABLE CLINICAL HISTORY: Shortness of breath. COMPARISON STUDY: Chest CT June 23, 2016 and chest radiograph November 29, 2016 and PET/CT November 19, 2016. FINDINGS: Biapical opacities are unchanged and favors scarring. There is no consolidation to suggest pneumonia. Pulmonary vascularity is normal. Mild interstitial thickening is unchanged and likely chronic. Cardiomediastinal silhouette is stable. IMPRESSION: No acute cardiopulmonary findings. No significant change in appearance of the chest. Electronically signed by: Pool Foote M.D. 01/17/2017 4:52 PM Dictated Date/Time: 01/17/2017 4:50 PM Laboratory Results 01/17/17 16:10 Red Blood Count 3.87, Mean Corpuscular Volume 92.2, Mean Corpuscular Hemoglobin 30.2, Mean Corpuscular Hemoglobin Concent 32.8, Mean Platelet Volume 9.9, Neutrophils (%) (Auto) 68.0, Lymphocytes (%) (Auto) 21.8, Monocytes (%) (Auto) 8.4, Eosinophils (%) (Auto) 1.3, Basophils (%) (Auto) 0.1, Neutrophils # (Auto) 5.13, Lymphocytes # (Auto) 1.64, Monocytes # (Auto) 0.63, Eosinophils # (Auto) 0.10, Basophils # (Auto) 0.01 01/17/17 16:10 Test 01/17/17 16:10 01/17/17 17:16 White Blood Count 7.54 K/uL (4.8-10.8) Red Blood Count 3.87 M/uL (4.7-6.1) Hemoglobin 11.7 g/dL (14.0-18.0) Hematocrit 35.7 % (42-52) Mean Corpuscular Volume 92.2 fL (80-100) Mean Corpuscular Hemoglobin 30.2 pg (25-34) Mean Corpuscular Hemoglobin Concent 32.8 g/dl (32-36) Platelet Count 382 K/uL (130-400) Mean Platelet Volume 9.9 fL (7.4-10.4) Neutrophils (%) (Auto) 68.0 % Lymphocytes (%) (Auto) 21.8 % Monocytes (%) (Auto) 8.4 % Eosinophils (%) (Auto) 1.3 % Basophils (%) (Auto) 0.1 % Neutrophils # (Auto) 5.13 K/uL (1.4-6.5) Lymphocytes # (Auto) 1.64 K/uL (1.2-3.4) Monocytes # (Auto) 0.63 K/uL (0.11-0.59) Eosinophils # (Auto) 0.10 K/uL (0-0.5) Basophils # (Auto) 0.01 K/uL (0-0.2) RDW Standard Deviation 62.1 fL (36.4-46.3) RDW Coefficient of Variation 20.1 % (11.5-14.5) Immature Granulocyte % (Auto) 0.4 % Immature Granulocyte # (Auto) 0.03 K/uL (0.00-0.02) Anisocytosis PRESENT Spherocytes 1+ Tear Drop Cells 1+ Ovalocytes 1+ Schistocytes 1+ Anion Gap 2.0 mmol/L (3-11) Est Creatinine Clear Calc Drug Dose 36.0 ml/min Estimated GFR () 64.2 Estimated GFR (Non- 55.4 BUN/Creatinine Ratio 25.5 (10-20) Calcium Level 8.7 mg/dl (8.5-10.1) Total Bilirubin 0.5 mg/dl (0.2-1) Direct Bilirubin 0.2 mg/dl (0-0.2) Aspartate Amino Transf (AST/SGOT) 23 U/L (15-37) Alanine Aminotransferase (ALT/SGPT) 25 U/L (12-78) Alkaline Phosphatase 91 U/L (45-117) Total Protein 7.5 gm/dl (6.4-8.2) Albumin 3.1 gm/dl (3.4-5.0) Lipase 191 U/L (73-393) Thyroid Stimulating Hormone (TSH) 4.430 uIu/ml (0.300-4.500) Lactic Acid Level 1.7 mmol/L (0.4-2.0) Laboratory results reviewed by me Medications Administered Medications (Trade) Dose Ordered Sig/Lenka Route Start Time Stop Time Status Last Admin Dose Admin Sodium Chloride 1,000 ml @ 999 mls/hr Q1H1M STAT IV 01/17/17 16:08 01/17/17 17:08 DC 01/17/17 16:33 999 MLS/HR Sodium Chloride 1,000 ml @ 125 mls/hr Q8H IV 01/17/17 17:45 02/16/17 17:44 01/17/17 20:32 125 MLS/HR ECG Indication: weakness Rhythm: normal sinus Findings: no acute ischemic change, left axis deviation Comparison ECG Date: 11/29/2016 Change: no significant change ED Course 1603: The patient was evaluated in room C10. A complete history and physical exam was performed. 1608: Ordered NSS 1000 ml @ 999 mls/hr IV. 1722: I discussed the patient with Dr. Zuri VÁSQUEZ culinary internship - he will evaluate the patient for further treatment. 1723: Upon reexamination, the patient was resting. I discussed the test results and treatment plan with him. The patient will be evaluated for further management. 1739: Ordered Zofran Inj 4 mg IV. Medical Decision I reviewed the patient's past medical history, medications, and the nursing notes as described above. Differential diagnosis includes but is not limited to: dehydration, electrolyte abnormalities, pneumonia, bronchitis, UTI, worsening malignancy. The patient is an 81-year-old gentleman with a past medical history of colon cancer, s/p ileostomy who presents to emergency department with generalized fatigue in the setting of being on oral chemotherapy, Capecitabine, per history of present illness. On arrival the patient is fatigued appearing but in no acute distress, afebrile stable vital signs. He appears clinically dry with dry cracked mucous membranes. Labs notable for hyponatremia which is new with a sodium of 126 (133 on 01/12). BUN/Cr > 20 suggesting prerenal component. Labs otherwise unremarkable including WBC and lactate wnl. CXR negative. UA pending. Case d/w Dr. Zuri VÁSQUEZ, hospitalist who will admit the patient for further management. Medication Reconcilliation Current Medication List: was personally reviewed by me Blood Pressure Screening Patient's blood pressure: Normal blood pressure Consults Time Called: 1715 Consulting Physician: Dr. Zuri VÁSQUEZ culinary internship Returned Call: 1721 I discussed the patient with Dr. Zuri VÁSQUEZ culinary internship - he will evaluate the patient for further treatment. Impression Primary Impression: Hyponatremia Scribe Attestation The scribe's documentation has been prepared under my direction and personally reviewed by me in its entirety. I confirm that the note above accurately reflects all work, treatment, procedures, and medical decision making performed by me. Departure Information Dispostion Being Evaluated By Hospitalist Referrals Sonido Riojas M.D. (PCP) Patient Instructions My [facility]
[2017-01-17 16:26] LABS: BASO % 0.1 %; BASO ABS # 0.01 K/uL (0-0.2); EOS % 1.3 %; HEMATOCRIT 35.7 % (42-52); IG% 0.4 %; LYMPH % 21.8 %; LYMPH ABS # 1.64 K/uL (1.2-3.4); MEAN CELL VOLUME 92.2 fL (80-100); MEAN CORPUSCULAR HEMOGLOBIN 30.2 pg (25-34); MEAN CORPUSCULAR HGB CONC 32.8 g/dl (32-36); MEAN PLATELET VOLUME 9.9 fL (7.4-10.4); MONO % 8.4 %; PLATELET COUNT 382 K/uL (130-400); RED BLOOD COUNT 3.87 M/uL (4.7-6.1); WHITE BLOOD COUNT 7.54 K/uL (4.8-10.8)
[2017-01-17 16:43] LABS: BUN/CREATININE RATIO 25.5 (10-20); CALCIUM 8.7 mg/dl (8.5-10.1); CREATININE 1.21 mg/dl (0.60-1.40); POTASSIUM 4.5 mmol/L (3.5-5.1)
--- NOTE | 2017-01-17 16:53 | DIAGNOSTIC IMAGING REPORT ---
CHEST ONE VIEW PORTABLE CLINICAL HISTORY: Shortness of breath. COMPARISON STUDY: Chest CT June 23, 2016 and chest radiograph November 29, 2016 and PET/CT November 19, 2016. FINDINGS: Biapical opacities are unchanged and favors scarring. There is no consolidation to suggest pneumonia. Pulmonary vascularity is normal. Mild interstitial thickening is unchanged and likely chronic. Cardiomediastinal silhouette is stable. IMPRESSION: No acute cardiopulmonary findings. No significant change in appearance of the chest. Electronically signed by: Pool Foote M.D. 01/17/2017 4:52 PM Dictated Date/Time: 01/17/2017 4:50 PM
[2017-01-17 17:10] LABS: ANISOCYTOSIS PRESENT; COMPLETE YES; OVALOCYTES 1+; SCHISTOCYTES 1+; SPHEROCYTE 1+; TEAR DROP CELLS 1+
[2017-01-17] MEDS ORDERED: ONDANSETRON INJ 2 MG/ML 2 ML VIAL IV STA (17:39)
[2017-01-17] MEDS ORDERED: HYDROmorphone INJ 0.5 MG/0.5 ML SYR IV STA (17:44)
[2017-01-17] MEDS ORDERED: LOPERAMIDE HCL 2 MG CAP PO PRN (17:45)
[2017-01-17] MEDS ORDERED: ACETAMINOPHEN 325 MG TAB PO PRN (17:45)
[2017-01-17] MEDS ORDERED: LORAZEPAM 2 MG/ML 1 ML VIAL IV PRN ×2 (17:45)
[2017-01-17] MEDS ORDERED: MAGNESIUM HYDROXIDE SUSP 30 ML UDC PO PRN (17:45)
[2017-01-17] MEDS ORDERED: ONDANSETRON INJ 2 MG/ML 2 ML VIAL IV PRN (17:45)
[2017-01-17] MEDS ORDERED: OXYCODONE HCL IR 5 MG TAB (IMMEDIATE RELEASE) PO PRN (17:45)
[2017-01-17] MEDS ORDERED: HYDROmorphone INJ 0.5 MG/0.5 ML SYR IV PRN (17:45)
[2017-01-17] MEDS ORDERED: ONDANSETRON 8 MG TAB PO PRN (17:45)
[2017-01-17] MEDS ORDERED: HYDROmorphone INJ 1 MG/ML SYR IV PRN (17:45)
[2017-01-17] MEDS ORDERED: ALUMINUM/MAGNESIUM/SIMETH (MAALOX MAX) 30 ML UDC PO PRN (17:45)
--- NOTE | 2017-01-17 18:17 | History and Physical ---
History & Physical Date & Time of Service: Jan 17, 2017 at 18:08 Chief Complaint: Dehydrated Primary Care Physician: Sonido Riojas M.D. History of Present Illness this pt presents with weakness after having vomiting. He did have attempts to get ivf at cancer center but still feels weak. he has no increase in ostomy output or consistency. he has no fever, no abdominal pain, c/o a dry feeling throat. Past Medical/Surgical History Medical Problems: (1) Colon cancer Status: Chronic (2) Coronary artery disease Status: Chronic (3) Hypercholesteremia Status: Chronic (4) Hypertension Status: Chronic (5) Kidney stones Status: Chronic (6) Myocardial infarct Status: Resolved (7) Vertigo Status: Chronic Family History Cancer Diabetes mellitus FHx: heart disease FHx: kidney disease/stones Social History Smoking Status: Former Smoker Drug Use: none Marital Status: Housing status: lives with significant other Occupational Status: retired Immunizations History of Influenza Vaccine: Yes Influenza Vaccine Date: Nov 03, 2012 History of Tetanus Vaccine?: UTD History of Pneumococcal: Unknown History of Hepatitis B Vaccine: Unknown Multi-Drug Resistant Organisms History of MDRO: No Allergies Coded Allergies: Clarithromycin (Verified Allergy, Severe, "MAJOR RXN" ?, 01/17/17) Penicillins (Verified Allergy, Severe, "MAJOR RXN" ?, 01/17/17) Sulfa Antibiotics (Verified Allergy, Severe, "SULFA DRUGS": "MAJOR RXN"?, 01/17/17) Cephalosporins (Verified Allergy, Unknown, ?, 01/17/17) Diltiazem (Verified Allergy, Unknown, FLUSHING, 01/17/17) Morphine (Verified Allergy, Unknown, N/V, 01/17/17) Streptokinase (Verified Allergy, Unknown, ?, 01/17/17) Sulfonylureas (Verified Allergy, Unknown, RASH, 01/17/17) Codeine (Verified Adverse Reaction, Mild, NAUSEA / VOMITING, 01/17/17) Home Medications Scheduled Aspirin Buffered (Marvin Carb-Mag (Tri-Buffered Aspirin), 325 MG PO BID Capecitabine (Xeloda), 500 MG PO UD Ergocalciferol (Vitamin D 54790 Unit), 50,000 UNIT PO 2XWK Ferrous Sulfate (Ferrous Sulfate), 325 MG PO BIDM Levothyroxine Sodium (Synthroid), 75 MG PO QAM Magnesium Oxide (Mag-Ox), 400 MG PO DAILY Nitroglycerin (Nitrostat), 0.4 MG UT PRN Nutritional Supplements (Boost), 1 CAN PO DAILY Omeprazole (Prilosec), 20 MG PO QPM Simethicone (Mylanta Gas Minis), 311 MG PO DIRECTED Simvastatin (Zocor), 40 MG PO QPM Tamsulosin Hcl (Flomax), 0.4 MG PO NOON Scheduled PRN Loperamide Hcl (Loperamide Hcl), 2 MG PO Q6H PRN for Diarrhea Ondansetron Hcl (Zofran), 8 MG PO Q8 PRN for Nausea Oxycodone HCl (Oxycodone HCl), 5 MG PO Q4H PRN for Moderate pain (pain scale 4-6 ) Review of Systems Constitutional: No fever, No chills ENT: + sore throat, No unusual epistaxis, No dental problems Respiratory: No cough, No sputum, No wheezing Cardiovascular: No chest pain, No orthopnea, No edema Abdomen: No pain, No nausea, No vomiting, No diarrhea Musculoskeletal: No joint pain, No muscle pain, No swelling Neurologic: + weakness, No memory loss, No paralysis Psychiatric: No depression symptoms, No anhedonism, No anxiety Endocrine: No fatigue, No excessive thirst Integumentary: No rash, No itch Physical Exam Vital Signs Date Time Temp Pulse Resp B/P (MAP) Pulse Ox O2 Delivery O2 Flow Rate FiO2 01/17/17 17:30 73 15 117/53 98 Room Air 01/17/17 17:00 69 116/71 100 Room Air 01/17/17 16:48 66 01/17/17 16:40 66 11 109/54 01/17/17 15:39 36.4 78 20 101/60 98 General Appearance: + mild distress, + thin Head: normocephalic, atraumatic Eyes: normal inspection, sclerae normal Respiratory/Chest: chest non-tender, lungs clear, normal breath sounds Cardiovascular: regular rate, rhythm, no murmur Abdomen/GI: normal bowel sounds, non tender, soft, + pertinent finding (ostomy in rightlower quadrant is intact) Back: normal inspection, no CVA tenderness, no muscle spasm Extremities/Musculoskelatal: no pedal edema, normal range of motion Neurologic/Psych: alert, oriented x 3 Skin: normal color, warm/dry, no rash Diagnostics Laboratory Results Results Past 24 Hours Test 01/17/17 16:10 01/17/17 17:16 Range/Units White Blood Count 7.54 4.8-10.8 K/uL Red Blood Count 3.87 4.7-6.1 M/uL Hemoglobin 11.7 14.0-18.0 g/dL Hematocrit 35.7 42-52 % Mean Corpuscular Volume 92.2 80-100 fL Mean Corpuscular Hemoglobin 30.2 25-34 pg Mean Corpuscular Hemoglobin Concent 32.8 32-36 g/dl Platelet Count 382 130-400 K/uL Mean Platelet Volume 9.9 7.4-10.4 fL Neutrophils (%) (Auto) 68.0 % Lymphocytes (%) (Auto) 21.8 % Monocytes (%) (Auto) 8.4 % Eosinophils (%) (Auto) 1.3 % Basophils (%) (Auto) 0.1 % Neutrophils # (Auto) 5.13 1.4-6.5 K/uL Lymphocytes # (Auto) 1.64 1.2-3.4 K/uL Monocytes # (Auto) 0.63 0.11-0.59 K/uL Eosinophils # (Auto) 0.10 0-0.5 K/uL Basophils # (Auto) 0.01 0-0.2 K/uL RDW Standard Deviation 62.1 36.4-46.3 fL RDW Coefficient of Variation 20.1 11.5-14.5 % Immature Granulocyte % (Auto) 0.4 % Immature Granulocyte # (Auto) 0.03 0.00-0.02 K/uL Anisocytosis PRESENT Spherocytes 1+ Tear Drop Cells 1+ Ovalocytes 1+ Schistocytes 1+ Sodium Level 126 136-145 mmol/L Potassium Level 4.5 3.5-5.1 mmol/L Chloride Level 96 98-107 mmol/L Carbon Dioxide Level 28 21-32 mmol/L Anion Gap 2.0 3-11 mmol/L Blood Urea Nitrogen 31 7-18 mg/dl Creatinine 1.21 0.60-1.40 mg/dl Est Creatinine Clear Calc Drug Dose 36.0 ml/min Estimated GFR () 64.2 Estimated GFR (Non- 55.4 BUN/Creatinine Ratio 25.5 10-20 Random Glucose 200 70-99 mg/dl Calcium Level 8.7 8.5-10.1 mg/dl Total Bilirubin 0.5 0.2-1 mg/dl Direct Bilirubin 0.2 0-0.2 mg/dl Aspartate Amino Transf (AST/SGOT) 23 15-37 U/L Alanine Aminotransferase (ALT/SGPT) 25 12-78 U/L Alkaline Phosphatase 91 45-117 U/L Total Protein 7.5 6.4-8.2 gm/dl Albumin 3.1 3.4-5.0 gm/dl Lipase 191 73-393 U/L Lactic Acid Level 1.7 0.4-2.0 mmol/L CXR normal Impression Assessment and Plan 81 M with history of metastatic colon cancer treated with Xeloda who presents with weakness and hyponatremia. he has hyperglycemia that also will affect his clinical dehydration will hydrate with NSS Hyponatremia, likley will be improved with nss, will check random urine sodium if >20 maybe SIADH Colon cancer, will continue Xeloda but needs to bring it from home Hyperglycemia, will have ssi and diabetic diet Hyponatremia, will continue but check tsh on admission continue flomax for BPH Mild malnutrition, albumin is low, will hold vitamins at this time given his nausea GERD continue PPI Lovenox for DVT prevention VTE Prophylaxis VTE Risk Assessment Done? Y/N: Yes Risk Level: Moderate Given or contraindicated: Enoxaparin (Lovenox)SQ
[2017-01-17 19:14] LABS: URINE APPEARANCE CLEAR (CLEAR); URINE BILIRUBIN NEG (NEG); URINE COLOR YELLOW; URINE NITRITE NEG (NEG); URINE SPECIFIC GRAVITY 1.023 (1.000-1.030); UROBILINOGEN NEG (NEG); ZZUR CULT IF INDIC CLEAN CATCH NO
[2017-01-17 19:15] LABS: MANUAL MICROSCOPIC REQUIRED? NO; REVIEW REQ? NO
[2017-01-17] MEDS ORDERED: LORAZEPAM INJ 1 MG in SYRINGE 0.5 ML IV PRN (20:15)
[2017-01-17] MEDS ORDERED: LORAZEPAM INJ 0.5 MG in SYRINGE 0.75 ML IV PRN (20:15)
[2017-01-17] MEDS: SODIUM CHLORIDE 0.9% 1000ML 1,000 ML IV SCH (20:32)
[2017-01-17] MEDS: INSULIN ASPART 100 UNITS/ML 3 ML PEN SC SCH (20:53)
[2017-01-17] MEDS ORDERED: ENOXAPARIN 40 MG/0.4 ML SYR SQ SCH (21:00)
[2017-01-17] MEDS ORDERED: IV FLUIDS COMPLETED PRN (22:30)
[2017-01-17] MEDS ORDERED: NURSING VERBAL MED ORDER ONE (23:00)
[2017-01-17] MEDS ORDERED: MAGIC MOUTHWASH PO PRN (23:30)
[2017-01-17 23:44] VITALS: BP 93/49; PULSE 66; TEMP 36.7; O2SAT 99
[2017-01-18] MEDS: SODIUM CHLORIDE 0.9% 1000ML 1,000 ML IV SCH ×2 (04:27→09:31)
[2017-01-18] MEDS: INSULIN ASPART 100 UNITS/ML 3 ML PEN SC SCH ×2 (06:30→11:00)
[2017-01-18] MEDS ORDERED: LEVOTHYROXINE 75 MCG TAB PO SCH (06:30)
[2017-01-18 06:40] LABS: HEMATOCRIT 30.2 % (42-52); MEAN CELL VOLUME 91.5 fL (80-100); MEAN CORPUSCULAR HGB CONC 32.8 g/dl (32-36); MEAN PLATELET VOLUME 9.5 fL (7.4-10.4); PLATELET COUNT 290 K/uL (130-400); WHITE BLOOD COUNT 3.91 K/uL (4.8-10.8)
[2017-01-18 07:19] LABS: BUN/CREATININE RATIO 27.3 (10-20); CALCIUM 7.9 mg/dl (8.5-10.1); CREATININE 0.69 mg/dl (0.60-1.40); POTASSIUM 3.8 mmol/L (3.5-5.1)
[2017-01-18 08:00] VITALS: O2SAT 98
[2017-01-18] MEDS ORDERED: CAPECITABINE 500 MG TAB PO SCH (08:00)
[2017-01-18 08:21] VITALS: BP 104/55; PULSE 58; TEMP 36.4; O2SAT 99
[2017-01-18] MEDS ORDERED: TAMSULOSIN HCL 0.4 MG CAP PO SCH (12:00)
[2017-01-18 12:50] LABS: BUN/CREATININE RATIO 21.6 (10-20); CALCIUM 7.9 mg/dl (8.5-10.1); CREATININE 0.77 mg/dl (0.60-1.40); MAGNESIUM 1.5 mg/dl (1.8-2.4); POTASSIUM 3.9 mmol/L (3.5-5.1)
[2017-01-18] MEDS: MAGNESIUM SULFATE 1GM / D5W 1 GM in PREMIXED IN D5W 100 ML IV SCH ×2 (14:18→15:21)
--- NOTE | 2017-01-18 16:13 | Discharge Instructions ---
Discharge Instructions Date of Service Jan 18, 2017. Admission Reason for Admission: Dehydration, Recent Vomiting Discharge Discharge Diagnosis / Problem: Dehydration - resolved. Discharge Goals Goal(s): Learn about illness, Diagnostic testing, Therapeutic intervention Activity Recommendations Activity Limitations: resume your previous activity (as tolerated ) . Instructions / Follow-Up Instructions / Follow-Up From Dr. Keating - 1. Your magnesium level was low due to the recent vomiting as well as poor oral intake. Please continue on your magnesium supplement (400mg) once daily as previous. 2. We tested your stool for c. diff (a bacterial infection of the colon) and this was NEGATIVE. Your stool culture has been sent to the lab and we will follow this for 3-4 days to ensure you don't have any other bacterial infections of the stool. 3. Continue to monitor your blood sugars at home and try to continue controlling your diabetes through diet. Your blood sugars were acceptable during your hospital stay with diet control alone. 4. Your sodium level in the blood was low when you arrived at [facility] (126) . It improved to 131 with fluids. You have had low sodium levels for several months based on lab tests in the computer. It may be chronically low due to your cancer. Please have your family doctor or cancer doctor recheck your sodium level THIS week at time of follow-up. 5. Continue to follow a low-fiber diet. High amounts of fiber may increase the amount of stool output via your ostomy. High fiber foods include certain cereals, large amounts of beans/prunes/fruits/ veggies, etc. 6. Follow-up - * see Dr. Riojas or one of his associates THIS WEEK * see your cancer doctor(s) within 1-2 weeks * again would recommend a repeat sodium and repeat magnesium level this week 7. Return to [facility] if - * you have fever over 100.5 degrees * you develop shortness of breath, chest pain or abdominal pain * your ostomy output (amount of stool) is severe * you develop dizziness or lightheadedness * any other concerns Current Hospital Diet Patient's current hospital diet: Diabetes Type 2 Diet Discharge Diet Recommended Diet: Diabetes Type 2 Diet, Low Fiber Diet Procedures Procedures Performed: chest x-ray - normal. Pending Studies Studies pending at discharge: yes List of pending studies: stool culture Laboratory Results Hemoglobin A1c Test 11/30/16 05:04 Range/Units Estimated Average Glucose 126 mg/dl Hemoglobin A1c 6.0 H 4.5-5.6 % Lipid Panel Test 01/05/17 10:32 Range/Units Triglycerides Level 87 0-150 mg/dl Cholesterol Level 136 0-200 mg/dl HDL Cholesterol 65 mg/dl Cholesterol/HDL Ratio 2.1 LDL Cholesterol, Calculated 54 mg/dl Medical Emergencies . Who to Call and When: Medical Emergencies: If at any time you feel your situation is an emergency, please call 911 immediately. . Non-Emergent Contact Non-Emergency issues call your: Primary Care Provider, Oncologist Call Non-Emergent contact if: temperature is above 100.5, your pain is not controlled, your pain is worsening, your pain is unusual for you, your pain is concerning you, you have any medication questions . . "Provider Documentation" section prepared by Thor Keating. . VTE Core Measure Inpt VTE Proph given/why not?: Enoxaparin (Lovenox)SQ
[2017-01-18 16:16] VITALS: BP 104/55; PULSE 58; TEMP 36.4; O2SAT 99
--- NOTE | 2017-01-18 17:57 | Discharge Summary ---
Discharge Summary Date of Service Jan 18, 2017. Discharge Summary Admission Date: Jan 17, 2017 at 17:47 Discharge Date: Jan 18, 2017 Discharge Disposition: Home Principal Diagnosis: hyponatremic dehydration Problems/Secondary Diagnoses: 1. hypomagnesemia 2. acute kidney injury 2nd to dehydration 3. gastroenteritis 4. stage 4 colon cancer 5. CAD 6. BPH 7. hypothyroidism Immunizations: Have You Had Influenza Vaccine: Yes Influenza Vaccine Date: Nov 03, 2012 History of Tetanus Vaccine?: UTD History of Pneumococcal: Unknown History of Hepatitis B Vaccine: Unknown Procedures: chest x-ray: no infiltrates Medication Reconciliation Continued Medications: Aspirin Buffered (Marvin Carb-Mag (Tri-Buffered Aspirin) 1 Tab Tab 325 MG PO BID for 45 Days, #90 TAB Take to prevent blood clots. Capecitabine (Xeloda) 500 Mg Tab 500 MG PO UD, TAB TAKE 1000 MG PO BID FOR 14 DAYS THEN 7 DAYS OFF Ergocalciferol (Vitamin D 29277 Unit) 50,000 Unit Cap 94672 UNIT PO 2XWK, CAP THURSDAY & THURSDAY Ferrous Sulfate (Ferrous Sulfate) 325 Mg Tab 325 MG PO BIDM for 30 Days, #60 TAB Take to restore blood count Levothyroxine Sodium (Synthroid) 75 Mcg Tab 75 MG PO QAM Loperamide Hcl (Loperamide Hcl) 1 Mg/7.5 Ml Eli 2 MG PO Q6H PRN for Diarrhea Magnesium Oxide (Mag-Ox) 400 Mg Tab 400 MG PO DAILY, TAB Nitroglycerin (Nitrostat) 0.4 Mg Tab 0.4 MG UT PRN Nutritional Supplements (Boost) 1 Liq Liq 1 CAN PO DAILY Omeprazole (Prilosec) 20 Mg Capcr 20 MG PO QPM, CAP Ondansetron Hcl (Zofran) 8 Mg Tab 8 MG PO Q8 PRN for Nausea, TAB MUST TAKE BEFORE TAKING CHEMO MED Oxycodone HCl (Oxycodone HCl) 5 Mg Tab 5 MG PO Q4H PRN for Moderate pain (pain scale 4-6) for 30 Days, #40 TAB Take as needed for Pain. Simethicone (Mylanta Gas Minis) 41.667 Mg Chw 311 MG PO DIRECTED Simvastatin (Zocor) 40 Mg Tab 40 MG PO QPM Tamsulosin Hcl (Flomax) 0.4 Mg Cap 0.4 MG PO NOON, CAP Discharge Exam Physical Exam: General Appearance: no apparent distress, + thin ENT: pharynx normal Neck: no JVD Respiratory/Chest: lungs clear, no respiratory distress, no accessory muscle use Cardiovascular: regular rate, rhythm, no gallop, no murmur, normal peripheral pulses Abdomen / GI: normal bowel sounds, non tender, soft, no organomegaly, + pertinent finding (ostomy with brown stool in bag) Extremities: no pedal edema Neurologic/Psychiatric: alert, oriented x 3 Hospital Course HISTORY OF PRESENT ILLNESS: The patient is an 81 year old male with stage 4 colon cancer, currently undergoing chemotherapy for such, who presented to the Emergency Room with complaints of persistent dehydration that started a few days prior to presentation. He stated that he had the stomach "flu bug" 4 days ago, and vomited 4 times that day, but the nausea and vomiting stopped shortly after. Per the patient's family, the patient received a half bag of fluid at the cancer center 3 days ago for dehydration. He noted that he had been drinking and eating well the past few days but despite such still felt dehydrated. The patient denied any fevers, chills, cough, congestion, headaches, abdominal pain , chest pain, shortness of breath, or chest pain. He has had a significant amount of liquid stool via his ostomy. HOSPITAL COURSE: The patient's sodium level at admission was 126. This was acutely low in the setting of a mildly low sodium for several months (a review of the EMR demonstrated that his serum sodium level had been in the low 130s over the past 2 months). He received IV hydration for his hyponatremic dehydration with improvement in the sodium level to 131. He had evidence of acute kidney injury likely from the dehydration; creatinine improved from 1.2 down to 0.7 during his brief stay. He also had hypomagnesemia (1.5) and received IV supplementation. After receiving IVF he felt much better. On day of discharge he was walking the hallways without any dizziness. He was tolerating food without difficulty. He had no recurrent GI symptoms. Stool was checked for c. diff and was negative. Stool culture was sent and was pending at discharge. The patient was told that his serum sodium had been in the low 130s for some time and was perhaps related to his colon cancer (ie due to SIADH?). I recommended a repeat BMP and magnesium level at time of hospital follow-up to ensure stability of these electrolytes. Total Time Spent: Greater than 30 minutes This includes examination of the patient, discharge planning, medication reconciliation, and communication with other providers. Discharge Instructions Please refer to the electronic Patient Visit Report (Discharge Instructions) for additional information. Follow-Up see Dr. Riojas, PCP, within 5 days of discharge will need repeat BMP & Mag at that time for stability Additional Copies To José Miguel Tolbert MD; Sonido Riojas M.D.
== END 2017-01-18 17:28 | disposition home or self-care (01) ==
LOC: C.EDB 15:30 → C.MS2W 17:47 → ENRESERV 18:55
PROVIDERS: ADMIT Internal Medicine; ATTEND Internal Medicine
DX: E86.0 Dehydration (principal); N17.9 Acute kidney failure, unspecified; E83.42 Hypomagnesemia; I25.10 Atherosclerotic heart disease of native coronary artery without angina pectoris; I10 Essential (primary) hypertension; I25.2 Old myocardial infarction; E78.00 Pure hypercholesterolemia, unspecified; C18.9 Malignant neoplasm of colon, unspecified; E03.9 Hypothyroidism, unspecified; K52.9 Noninfective gastroenteritis and colitis, unspecified; R42 Dizziness and giddiness; Z87.891 Personal history of nicotine dependence; Z79.82 Long term (current) use of aspirin; Z79.899 Other long term (current) drug therapy

== ENCOUNTER 2017-01-26 15:58 | Inpatient (IN) | payer OTHER ==
[~2017-01-26] VITALS: Ht 165.1 cm; Wt 46.4 kg
[2017-01-26] MEDS ORDERED: SODIUM CHLORIDE 0.9% 1000ML 1,000 ML IV STA (16:10)
--- NOTE | 2017-01-26 16:32 | EMERGENCY ROOM VISIT NOTE ---
History Report prepared by Vance: Griffin So Under the Supervision of: Dr. Levy Salazar M.D. First contact with patient: 16:03 Chief Complaint: DEHYDRATION Stated Complaint: NEEDS IV TRANFUSION History of Present Illness The patient is an 81 year old male who presents to the Emergency Room with complaints of constant dehydration beginning a few days ago. Per daughter, the patient was discharged from the hospital eight days ago. She notes that the patient was sent by Dr. Tolbert today because his veins were collapsing while his blood was being drawn. She reports that the patient's condition has worsened since he was discharged from the hospital. She states that the patient seems dehydrated, as well as has a decreased appetite, decreased fluid intake, and fatigue. She notes that the patient was recently put on antibiotics for his eyes. She reports that the patient has an ileostomy, and takes a chemotherapy pill. She states that the patient has not taken his chemotherapy pill for the last 5 days due to his worsening condition. She notes that the patient cannot taste anything due to his medication, which is why he has not been eating and drinking. The patient denies any fever, vomiting, body pain, recent falls, and recent syncopal events. He notes that he feels like he can drink, but can only drink so much. Source of History: patient, family Onset: a few days ago Position: other (global) Quality: other (dehydration) Associated Symptoms: No fevers, No vomiting Note: Per daughter, the patient has had a decreased appetite and fluid intake, cannot taste, as well as feeling fatigued. The patient denies any body pain, recent falls, and syncopal events. Review of Systems See HPI for pertinent positives & negatives. A total of 10 systems reviewed and were otherwise negative. Past Medical & Surgical Medical Problems: (1) Colon cancer (2) Coronary artery disease (3) Hip fracture (4) Hypercholesteremia (5) Hypertension (6) Hyponatremia (7) Kidney stones (8) Myocardial infarct (9) Pleural effusion (10) SBO (small bowel obstruction) (11) Vertigo Family History Cancer Diabetes mellitus FHx: heart disease FHx: kidney disease/stones Social History Smoking Status: Never Smoker Alcohol Use: none Drug Use: none Marital Status: Housing Status: lives with significant other Occupation Status: retired Current/Historical Medications Scheduled Aspirin Buffered (Marvin Carb-Mag (Tri-Buffered Aspirin), 325 MG PO BID Capecitabine (Xeloda), 500 MG PO UD Ergocalciferol (Vitamin D 38960 Unit), 50,000 UNIT PO 2XWK Ferrous Sulfate (Ferrous Sulfate), 325 MG PO BIDM Levothyroxine Sodium (Synthroid), 75 MG PO QAM Magnesium Oxide (Mag-Ox), 400 MG PO DAILY Nitroglycerin (Nitrostat), 0.4 MG UT PRN Nutritional Supplements (Boost), 1 CAN PO DAILY Omeprazole (Prilosec), 20 MG PO QPM Simethicone (Mylanta Gas Minis), 311 MG PO DIRECTED Simvastatin (Zocor), 40 MG PO QPM Tamsulosin Hcl (Flomax), 0.4 MG PO NOON Scheduled PRN Loperamide Hcl (Loperamide Hcl), 2 MG PO Q6H PRN for Diarrhea Ondansetron Hcl (Zofran), 8 MG PO Q8 PRN for Nausea Oxycodone HCl (Oxycodone HCl), 5 MG PO Q4H PRN for Moderate pain (pain scale 4-6 ) Allergies Coded Allergies: Clarithromycin (Verified Allergy, Severe, "MAJOR RXN" ?, 01/26/17) Penicillins (Verified Allergy, Severe, "MAJOR RXN" ?, 01/26/17) Sulfa Antibiotics (Verified Allergy, Severe, "SULFA DRUGS": "MAJOR RXN"?, 01/26/17) Cephalosporins (Verified Allergy, Unknown, ?, 01/26/17) Diltiazem (Verified Allergy, Unknown, FLUSHING, 01/26/17) Morphine (Verified Allergy, Unknown, N/V, 01/26/17) Streptokinase (Verified Allergy, Unknown, ?, 01/26/17) Sulfonylureas (Verified Allergy, Unknown, RASH, 01/26/17) Codeine (Verified Adverse Reaction, Mild, NAUSEA / VOMITING, 01/26/17) Physical Exam Vital Signs Date Time Temp Pulse Resp B/P (MAP) Pulse Ox O2 Delivery O2 Flow Rate FiO2 01/26/17 17:21 80 20 103/68 97 Room Air 01/26/17 16:58 80 20 104/61 Room Air 80 103/68 92/60 01/26/17 16:47 87 01/26/17 15:59 36.5 92 18 94/63 100 Room Air Physical Exam GENERAL: Patient is in no acute distress. HEENT: No acute trauma, normocephalic atraumatic, mucous membranes dry, no nasal congestion, no scleral icterus. NECK: No stridor, no adenopathy, no meningismus, trachea is midline. LUNGS: Decreased breath sounds, equal breath sounds, no wheezing or rhonchi. HEART: Without murmurs gallops or rubs, regular rate and rhythm. ABDOMEN: Soft, nontender, bowel sounds positive, no hernias, no peritonitis. Ileostomy present. EXTREMITIES: No cyanosis or edema, full range of motion of all the joints without pain or difficulty, no signs for acute trauma. NEUROLOGIC: Oriented x 3, no acute motor or sensory deficits, no focal weakness. SKIN: No rash, no jaundice, no diaphoresis. Medical Decision & Procedures ER Provider Diagnostic Interpretation: Radiology results as stated below per my review and radiologist interpretation: CHEST ONE VIEW PORTABLE FINDINGS: Lung volumes are normal. No pneumothorax or pleural effusion is present. There are numerous calcified thoracic lymph nodes. Cardiomediastinal silhouette is stable. Upper lobe predominant reticulonodular interstitial thickening is unchanged. IMPRESSION: No acute cardiopulmonary findings. No change in appearance of the chest with upper lobe predominant reticulonodular interstitial thickening. Electronically signed by: Pool Foote M.D. 01/26/2017 4:45 PM Laboratory Results 01/26/17 16:44 Red Blood Count 4.17, Mean Corpuscular Volume 89.7, Mean Corpuscular Hemoglobin 30.5, Mean Corpuscular Hemoglobin Concent 34.0, Mean Platelet Volume 9.8, Neutrophils (%) (Auto) 59.9, Lymphocytes (%) (Auto) 25.9, Monocytes (%) (Auto) 13.1, Eosinophils (%) (Auto) 0.6, Basophils (%) (Auto) 0.2, Neutrophils # (Auto ) 3.83, Lymphocytes # (Auto) 1.66, Monocytes # (Auto) 0.84, Eosinophils # (Auto ) 0.04, Basophils # (Auto) 0.01 01/26/17 16:44 01/26/17 17:45 Test 01/26/17 16:44 01/26/17 17:04 01/26/17 17:45 White Blood Count 6.40 K/uL (4.8-10.8) Red Blood Count 4.17 M/uL (4.7-6.1) Hemoglobin 12.7 g/dL (14.0-18.0) Hematocrit 37.4 % (42-52) Mean Corpuscular Volume 89.7 fL (80-100) Mean Corpuscular Hemoglobin 30.5 pg (25-34) Mean Corpuscular Hemoglobin Concent 34.0 g/dl (32-36) Platelet Count 424 K/uL (130-400) Mean Platelet Volume 9.8 fL (7.4-10.4) Neutrophils (%) (Auto) 59.9 % Lymphocytes (%) (Auto) 25.9 % Monocytes (%) (Auto) 13.1 % Eosinophils (%) (Auto) 0.6 % Basophils (%) (Auto) 0.2 % Neutrophils # (Auto) 3.83 K/uL (1.4-6.5) Lymphocytes # (Auto) 1.66 K/uL (1.2-3.4) Monocytes # (Auto) 0.84 K/uL (0.11-0.59) Eosinophils # (Auto) 0.04 K/uL (0-0.5) Basophils # (Auto) 0.01 K/uL (0-0.2) RDW Standard Deviation 66.0 fL (36.4-46.3) RDW Coefficient of Variation 21.2 % (11.5-14.5) Immature Granulocyte % (Auto) 0.3 % Immature Granulocyte # (Auto) 0.02 K/uL (0.00-0.02) Anisocytosis PRESENT Ovalocytes 1+ Echinocytes 1+ Anion Gap 6.0 mmol/L (3-11) Est Creatinine Clear Calc Drug Dose 30.9 ml/min Estimated GFR () 61.8 Estimated GFR (Non- 53.3 BUN/Creatinine Ratio 20.6 (10-20) Calcium Level 8.6 mg/dl (8.5-10.1) Total Bilirubin 0.7 mg/dl (0.2-1) Alanine Aminotransferase (ALT/SGPT) 22 U/L (12-78) Alkaline Phosphatase 69 U/L (45-117) Troponin I 0.063 ng/ml (0-0.045) Total Protein 7.0 gm/dl (6.4-8.2) Albumin 2.9 gm/dl (3.4-5.0) Globulin 4.1 gm/dl (2.5-4.0) Albumin/Globulin Ratio 0.7 (0.9-2) Thyroid Stimulating Hormone (TSH) 13.000 uIu/ml (0.300-4.500) Free Thyroxine 1.58 ng/dl (0.80-1.60) Urine Color DK YELLOW Urine Appearance CLEAR (CLEAR) Urine pH 5.0 (4.5-7.5) Urine Specific [place] 1.023 (1.000-1.030) Urine Protein TRACE (NEG) Urine Glucose (UA) NEG (NEG) Urine Ketones TRACE (NEG) Urine Occult Blood NEG (NEG) Urine Nitrite NEG (NEG) Urine Bilirubin NEG (NEG) Urine Urobilinogen NEG (NEG) Urine Leukocyte Esterase NEG (NEG) Urine WBC (Auto) 1-5 /hpf (0-5) Urine RBC (Auto) 0-4 /hpf (0-4) Urine Hyaline Casts (Auto) 10-30 /lpf (0-5) Urine Epithelial Cells (Auto) 10-20 /lpf (0-5) Urine Bacteria (Auto) NEG (NEG) Urine Pathogenic Casts 0-3 GRANULAR CASTS /lpf (0) Magnesium Level 1.9 mg/dl (1.8-2.4) Aspartate Amino Transf (AST/SGOT) 15 U/L (15-37) Total Creatine Kinase 49 U/L (39-308) Laboratory results reviewed by me. Medications Administered Medications (Trade) Dose Ordered Sig/[facility] Route Start Time Stop Time Status Last Admin Dose Admin Sodium Chloride 1,000 ml @ 999 mls/hr Q1H1M STAT IV 01/26/17 16:10 01/26/17 17:10 DC 01/26/17 17:04 999 MLS/HR ECG Indication: weakness Rate (beats per minute): 84 Rhythm: normal sinus Findings: RBBB, no ectopy, other (LVH present, old septal infarct) Comparison ECG Date: 06/14/2016 Change: no significant change ED Course 1604: The patient was evaluated in room B9. A complete history and physical exam was performed. 1610: Sodium Chloride 1000 ml @ 999 mls/hr IV 1736: The patient's orthostatic vital signs showed a slight drop in blood pressure when standing. 1740: I reevaluated and updated the patient. 1747: Upon reexamination the patient is stable . I discussed results and treatment plan with the patient. He verbalizes agreement and understanding. I spoke with Dr. Cortez - Prudencio Felix. We discussed the patient's results and findings. The patient will be evaluated by Dr. Cortez for further management. Medical Decision Differential diagnoses include: dehydration, electrolyte imbalance, anemia, UTI , and renal failure. There is no leukocytosis or worrisome anemia. Renal panel testing shows hyponatremia. No kidney failure. No evidence for hepatitis. Urinalysis does not show infection. Chest film does not show pneumonia or CHF. Orthostatic vital signs did show a drop in blood pressure with standing. EKG showed a sinus rhythm with some chronic findings, no acute ischemia. Cardiac enzyme testing times one is slightly elevated-this is baseline though for the patient. The patient presents with weakness, fatigue. He is borderline hypotensive and he does drop his blood pressure with standing. He is hyponatremic. He has had issues similar to these in the past. The patient received IV saline. I do think a hospital stay is warranted given the extent of the hyponatremia. The patient did consent to a hospital stay. I spoke with case management. The on-call hospitalist was consulted. Medication Reconcilliation Current Medication List: was personally reviewed by me Blood Pressure Screening Patient's blood pressure: Low blood pressure Blood pressure disposition: Did not require urgent referral Consults Time Called: 1743 Consulting Physician: Prudencio Bowden Returned Call: [phone] Discussed the patient's case. The patient will be evaluated for further management. Impression Primary Impression: Hyponatremia Additional Impression: Dehydration Scribe Attestation The scribe's documentation has been prepared under my direction and personally reviewed by me in its entirety. I confirm that the note above accurately reflects all work, treatment, procedures, and medical decision making performed by me. Departure Information Dispostion Being Evaluated By Hospitalist Referrals Sonido Riojas M.D. (PCP) Patient Instructions My [facility] Problem Qualifiers
--- NOTE | 2017-01-26 16:47 | DIAGNOSTIC IMAGING REPORT ---
CHEST ONE VIEW PORTABLE CLINICAL HISTORY: Altered mental status. Weakness. COMPARISON STUDY: Chest radiograph January 17, 2017 and PET/CT November 19, 2016. FINDINGS: Lung volumes are normal. No pneumothorax or pleural effusion is present. There are numerous calcified thoracic lymph nodes. Cardiomediastinal silhouette is stable. Upper lobe predominant reticulonodular interstitial thickening is unchanged. IMPRESSION: No acute cardiopulmonary findings. No change in appearance of the chest with upper lobe predominant reticulonodular interstitial thickening. Electronically signed by: Pool Foote M.D. 01/26/2017 4:45 PM Dictated Date/Time: 01/26/2017 4:40 PM
[2017-01-26 16:56] LABS: BASO % 0.2 %; BASO ABS # 0.01 K/uL (0-0.2); EOS % 0.6 %; HEMATOCRIT 37.4 % (42-52); IG% 0.3 %; LYMPH % 25.9 %; LYMPH ABS # 1.66 K/uL (1.2-3.4); MEAN CELL VOLUME 89.7 fL (80-100); MEAN CORPUSCULAR HEMOGLOBIN 30.5 pg (25-34); MEAN PLATELET VOLUME 9.8 fL (7.4-10.4); MONO % 13.1 %; NEUT % 59.9 %; PLATELET COUNT 424 K/uL (130-400); RED BLOOD COUNT 4.17 M/uL (4.7-6.1)
[2017-01-26 17:19] LABS: MANUAL MICROSCOPIC REQUIRED? NO; REVIEW REQ? YES; URINE APPEARANCE CLEAR (CLEAR); URINE COLOR DK YELLOW; URINE NITRITE NEG (NEG); URINE SPECIFIC GRAVITY 1.023 (1.000-1.030); UROBILINOGEN NEG (NEG); ZZUR CULT IF INDIC CLEAN CATCH NO
[2017-01-26 17:21] LABS: URINE BILIRUBIN NEG (NEG)
[2017-01-26 17:36] LABS: ALB/GLOB RATIO 0.7 (0.9-2); BUN/CREATININE RATIO 20.6 (10-20); CALCIUM 8.6 mg/dl (8.5-10.1); CREATININE 1.25 mg/dl (0.60-1.40)
[2017-01-26 17:46] LABS: URINE PATH CASTS 0-3 GRANULAR CASTS /lpf (0)
[2017-01-26 17:46] LABS: ANISOCYTOSIS PRESENT; COMPLETE YES; ECHINOCYTES 1+; OVALOCYTES 1+
[2017-01-26 18:14] LABS: POTASSIUM 4.4 mmol/L (3.5-5.1)
[2017-01-26 18:21] LABS: MAGNESIUM 1.9 mg/dl (1.8-2.4)
[2017-01-26] MEDS ORDERED: ASPI325T60 PO (18:54)
[2017-01-26] MEDS ORDERED: ACETAMINOPHEN 325 MG TAB PO PRN (19:15)
[2017-01-26] MEDS ORDERED: ONDANSETRON 8 MG TAB PO PRN (19:30)
[2017-01-26] MEDS ORDERED: NITROGLYCERIN 0.4 MG SL PER TAB CHARGE UT PRN (19:30)
--- NOTE | 2017-01-26 19:50 | History and Physical ---
History & Physical Date & Time of Service: Jan 26, 2017 at 18:37 Chief Complaint: Fatigue, anorexia Primary Care Physician: Sonido Riojas M.D. History of Present Illness Source: patient, caregiver Mr. English was discharged 8 days ago and wasn't eating or drinking much due to Xeloda (chemo) which was stopped last Thursday due to sore eyes. He was given a prescription for his eyes to relieve the soreness. He says he has not been eating because he cannot taste anything. Very fatigued, no energy, no desire to eat, no n/v/d. Denies falls. ROS Constitutional: no chills, aches, sweats or fever Respiratory: no sob,cough, sputum, or wheezing Cardiac: no chest pain, palpitations, edema, orthopnea or lightheadedness GI: no abdominal pain, nausea, vomiting, diarrhea or constipation : no dysuria or hesitancy Extremities: no joint pain or weakness Skin: no rash All other systems reviewed and negative Past Medical/Surgical History Medical Problems: (1) Colon cancer Status: Chronic (2) Coronary artery disease Status: Chronic (3) Hypercholesteremia Status: Chronic (4) Hypertension Status: Chronic (5) Kidney stones Status: Chronic (6) Myocardial infarct Status: Resolved (7) Vertigo Status: Chronic Family History Cancer Diabetes mellitus FHx: heart disease FHx: kidney disease/stones Social History Smoking Status: Former Smoker (quit 1990) Smokeless Tobacco Use: No Alcohol Use: none Drug Use: none Marital Status: Housing status: lives with significant other Occupational Status: retired Immunizations History of Influenza Vaccine: Yes Influenza Vaccine Date: Nov 03, 2012 History of Tetanus Vaccine?: UTD History of Pneumococcal: Yes History of Hepatitis B Vaccine: Unknown Multi-Drug Resistant Organisms History of MDRO: No Allergies Coded Allergies: Clarithromycin (Verified Allergy, Severe, "MAJOR RXN" ?, 01/26/17) Penicillins (Verified Allergy, Severe, "MAJOR RXN" ?, 01/26/17) Sulfa Antibiotics (Verified Allergy, Severe, "SULFA DRUGS": "MAJOR RXN"?, 01/26/17) Cephalosporins (Verified Allergy, Unknown, ?, 01/26/17) Diltiazem (Verified Allergy, Unknown, FLUSHING, 01/26/17) Morphine (Verified Allergy, Unknown, N/V, 01/26/17) Streptokinase (Verified Allergy, Unknown, ?, 01/26/17) Sulfonylureas (Verified Allergy, Unknown, RASH, 01/26/17) Codeine (Verified Adverse Reaction, Mild, NAUSEA / VOMITING, 01/26/17) Home Medications Scheduled Aspirin Buffered (Marvin Carb-Mag (Tri-Buffered Aspirin), 81 MG PO BID Capecitabine (Xeloda), 500 MG PO UD Ferrous Sulfate (Ferrous Sulfate), 325 MG PO BIDM Levothyroxine Sodium (Synthroid), 75 MG PO QAM Magnesium Oxide (Mag-Ox), 400 MG PO DAILY Nitroglycerin (Nitrostat), 0.4 MG UT PRN Nutritional Supplements (Boost), 1 CAN PO DAILY Omeprazole (Prilosec), 20 MG PO QPM Simvastatin (Zocor), 40 MG PO QPM Tamsulosin Hcl (Flomax), 0.4 MG PO NOON Scheduled PRN Loperamide Hcl (Loperamide Hcl), 2 MG PO Q6H PRN for Diarrhea Ondansetron Hcl (Zofran), 8 MG PO Q8 PRN for Nausea Physical Exam Vital Signs Date Time Temp Pulse Resp B/P (MAP) Pulse Ox O2 Delivery O2 Flow Rate FiO2 01/26/17 17:21 80 20 103/68 97 Room Air 01/26/17 16:58 80 20 104/61 Room Air 80 103/68 92/60 01/26/17 16:47 87 01/26/17 15:59 36.5 92 18 94/63 100 Room Air General: no distress Eyes: normal inspection, PERLL Respiratory: chest non tender, clear to auscultation, normal breath sounds, no respiratory distress, no accessory muscle use Cardiac: regular rate and rhythm, no rub or gallop, no murmur, no edema, no jvd GI/: active bowel sounds, no abd pain or tenderness, soft, non distended, ileostomy with green/brown liquid stool Extremities: normal range of motion, normal strength, non tender Neuro/Psych: drowsy and oriented x 3, normal mood and affect Skin: bronze skin, dry Diagnostics Laboratory Results Results Past 24 Hours Test 01/26/17 16:44 01/26/17 17:04 01/26/17 17:45 Range/Units White Blood Count 6.40 4.8-10.8 K/uL Red Blood Count 4.17 4.7-6.1 M/uL Hemoglobin 12.7 14.0-18.0 g/dL Hematocrit 37.4 42-52 % Mean Corpuscular Volume 89.7 80-100 fL Mean Corpuscular Hemoglobin 30.5 25-34 pg Mean Corpuscular Hemoglobin Concent 34.0 32-36 g/dl Platelet Count 424 130-400 K/uL Mean Platelet Volume 9.8 7.4-10.4 fL Neutrophils (%) (Auto) 59.9 % Lymphocytes (%) (Auto) 25.9 % Monocytes (%) (Auto) 13.1 % Eosinophils (%) (Auto) 0.6 % Basophils (%) (Auto) 0.2 % Neutrophils # (Auto) 3.83 1.4-6.5 K/uL Lymphocytes # (Auto) 1.66 1.2-3.4 K/uL Monocytes # (Auto) 0.84 0.11-0.59 K/uL Eosinophils # (Auto) 0.04 0-0.5 K/uL Basophils # (Auto) 0.01 0-0.2 K/uL RDW Standard Deviation 66.0 36.4-46.3 fL RDW Coefficient of Variation 21.2 11.5-14.5 % Immature Granulocyte % (Auto) 0.3 % Immature Granulocyte # (Auto) 0.02 0.00-0.02 K/uL Anisocytosis PRESENT Ovalocytes 1+ Echinocytes 1+ Sodium Level 122 136-145 mmol/L Potassium Level 4.4 3.5-5.1 mmol/L Chloride Level 90 98-107 mmol/L Carbon Dioxide Level 26 21-32 mmol/L Anion Gap 6.0 3-11 mmol/L Blood Urea Nitrogen 26 7-18 mg/dl Creatinine 1.25 0.60-1.40 mg/dl Est Creatinine Clear Calc Drug Dose 30.9 ml/min Estimated GFR () 61.8 Estimated GFR (Non- 53.3 BUN/Creatinine Ratio 20.6 10-20 Random Glucose 157 70-99 mg/dl Calcium Level 8.6 8.5-10.1 mg/dl Magnesium Level 1.9 1.8-2.4 mg/dl Total Bilirubin 0.7 0.2-1 mg/dl Aspartate Amino Transf (AST/SGOT) 15 15-37 U/L Alanine Aminotransferase (ALT/SGPT) 22 12-78 U/L Alkaline Phosphatase 69 45-117 U/L Total Creatine Kinase 49 39-308 U/L Troponin I 0.063 0-0.045 ng/ml Total Protein 7.0 6.4-8.2 gm/dl Albumin 2.9 3.4-5.0 gm/dl Globulin 4.1 2.5-4.0 gm/dl Albumin/Globulin Ratio 0.7 0.9-2 Thyroid Stimulating Hormone (TSH) 13.000 0.300-4.500 uIu/ml Free Thyroxine 1.58 0.80-1.60 ng/dl Urine Color DK YELLOW Urine Appearance CLEAR CLEAR Urine pH 5.0 4.5-7.5 Urine Specific [place] 1.023 1.000-1.030 Urine Protein TRACE NEG Urine Glucose (UA) NEG NEG Urine Ketones TRACE NEG Urine Occult Blood NEG NEG Urine Nitrite NEG NEG Urine Bilirubin NEG NEG Urine Urobilinogen NEG NEG Urine Leukocyte Esterase NEG NEG Urine WBC (Auto) 1-5 0-5 /hpf Urine RBC (Auto) 0-4 0-4 /hpf Urine Hyaline Casts (Auto) 10-30 0-5 /lpf Urine Epithelial Cells (Auto) 10-20 0-5 /lpf Urine Bacteria (Auto) NEG NEG Urine Pathogenic Casts 0-3 GRANULAR CASTS 0 /lpf Diagnostic Radiology CHEST ONE VIEW PORTABLE CLINICAL HISTORY: Altered mental status. Weakness. COMPARISON STUDY: Chest radiograph January 17, 2017 and PET/CT November 19, 2016. FINDINGS: Lung volumes are normal. No pneumothorax or pleural effusion is present. There are numerous calcified thoracic lymph nodes. Cardiomediastinal silhouette is stable. Upper lobe predominant reticulonodular interstitial thickening is unchanged. IMPRESSION: No acute cardiopulmonary findings. No change in appearance of the chest with upper lobe predominant reticulonodular interstitial thickening. CXR normal EKG Normal sinus rhythm Possible Left atrial enlargement Right bundle branch block Left anterior fascicular block Bifascicular block Left ventricular hypertrophy with repolarization abnormality Anterolateral infarct (cited on or before 17-JAN-2017) Abnormal ECG When compared with ECG of 17-JAN-2017 18:18, (RBBB and left anterior fascicular block) is now Present ... Impression Assessment and Plan Mr. Brungart is an 81 year old man here for hyponatremia in the setting of anorexia. Hyponatremia secondary to anorexia - admit telemetry - NSS @100 and recheck prp later this evening - Cortisol in the am. - TSH elevated Increased troponin, new RBBB on EKG, CAD - tele - trend trops - Echo to assess for WMA - patient asymptomatic - continue ASA, statin Hypothyroidism - TSH 13 - Patient reports taking his levothyroxine every day at least half hour before eating breakfast - increased levothyroxine to 100 mcg from 75 Colon CA - continue to hold Xeloda for now BPH - continue Flomax Level of Care Telemetry Advanced Directives Existing Advance Directive: Yes Existing Living Will: Yes Existing Power of Substation Wireman: Yes (Radhaaurea Legerey and Mechelle English (daughters)) Resuscitation Status FULL RESUSCITATION VTE Prophylaxis VTE Risk Assessment Done? Y/N: Yes Risk Level: Moderate Given or contraindicated: Unfractionated heparin SQ Reviewed: Pt Seen/Exam by Me History Pt is feeling improved s/p IVF. Minimal PO intake and chemo was stopped recently. Pt states he felt tired over the last few days and decreased appetite , but was otherwise himself. No chest pain or SOB, n/v. Agree with HPI/ROS as noted. General Appearance: no apparent distress, thin Respiratory: normal breath sounds, no respiratory distress Cardiovascular: normal peripheral pulses, regular rate, rhythm Gastrointestinal: non tender, soft Extremities: non-tender, no pedal edema Neurologic/Psychiatric: alert, normal mood/affect, oriented x 3 Skin Characteristics: normal color, warm/dry Assessment/Plan Agree with plan as outlined above HypoNa and dehydration, likely related to decreased PO intake Monitor with IVF Pt may benefit with d/c on NaCl tabs to prevent recurrence Trop with slight elevation, serials pending TSH elevated
[2017-01-26 20:50] VITALS: BP 122/71; PULSE 90; TEMP 36.3; O2SAT 97
[2017-01-26 21:50] VITALS: BP 122/71; PULSE 90; TEMP 36.3; O2SAT 97; Ht 165.1 cm; Wt 46.4 kg
[2017-01-26 22:17] LABS: HEMATOCRIT 32.1 % (42-52); MEAN CELL VOLUME 89.4 fL (80-100); MEAN CORPUSCULAR HEMOGLOBIN 30.6 pg (25-34); MEAN CORPUSCULAR HGB CONC 34.3 g/dl (32-36); MEAN PLATELET VOLUME 9.1 fL (7.4-10.4); PLATELET COUNT 369 K/uL (130-400); RED BLOOD COUNT 3.59 M/uL (4.7-6.1); WHITE BLOOD COUNT 5.48 K/uL (4.8-10.8)
[2017-01-26 22:37] LABS: BUN/CREATININE RATIO 21.4 (10-20); CREATININE 0.96 mg/dl (0.60-1.40); POTASSIUM 3.9 mmol/L (3.5-5.1)
[2017-01-26] MEDS: PANTOprazole SOD 40 MG TAB PO SCH (22:53)
[2017-01-26] MEDS: SIMVASTATIN 40 MG TAB PO SCH (22:53)
[2017-01-26] MEDS: ASPIRIN 81 MG ECTAB PO SCH (22:54)
[2017-01-26] MEDS: HEPARIN SOD 5000 UNIT/0.5 ML CARP SQ SCH (22:55)
[2017-01-26] MEDS: SODIUM CHLORIDE 0.9% 1000ML 1,000 ML IV SCH (22:55)
[2017-01-26 23:40] VITALS: BP 106/63; PULSE 78; TEMP 36.8; O2SAT 97
[2017-01-27] VITALS (7 sets, daily range): BP systolic 91–111; BP diastolic 54–60; PULSE 65–81; TEMP 36.5–36.8; O2SAT 97–99
[2017-01-27] MEDS ORDERED: NURSING VERBAL MED ORDER ONE ×3 (02:45→03:15)
[2017-01-27] MEDS ORDERED: ALUMINUM/MAGNESIUM SUSP 30 ML UDC PO PRN (03:15)
[2017-01-27 04:43] LABS: BUN/CREATININE RATIO 23.8 (10-20); CALCIUM 7.9 mg/dl (8.5-10.1); CREATININE 0.82 mg/dl (0.60-1.40); POTASSIUM 3.8 mmol/L (3.5-5.1)
[2017-01-27] MEDS: LEVOTHYROXINE 100 MCG TAB PO SCH (05:52)
[2017-01-27] MEDS ORDERED: PERFLUTREN LIPID MICROSPHERE (DEFINITY) IV ONE (07:52)
[2017-01-27] MEDS: FERROUS SULFATE 325 MG TAB PO SCH ×2 (08:51→17:27)
[2017-01-27] MEDS: MAGNESIUM OXIDE 400 MG TAB PO SCH (08:52)
[2017-01-27] MEDS: ASPIRIN 81 MG ECTAB PO SCH ×2 (08:53→20:11)
[2017-01-27] MEDS: HEPARIN SOD 5000 UNIT/0.5 ML CARP SQ SCH ×2 (08:53→20:04)
[2017-01-27] MEDS: TAMSULOSIN HCL 0.4 MG CAP PO SCH (08:53)
--- NOTE | 2017-01-27 08:56 | ECHOCARDIOGRAM REPORT ---
*NOTICE TO RECEIVING LIBERTARIAN AGENCY This information is strictly Confidential and protected under [place] law. [place] law prohibits you from making any further disclosure of this information unless further disclosure is expressly permitted by the written consent of the person to whom it pertains or is authorized by law. A general authorization for the release of medical or other information is not sufficient for this purpose. Hospital accepts no responsibility if the information is made available to any other person, INCLUDING THE PATIENT. Interpretation Summary * Name: PRETTY MEIER Study Date: 01/27/2017 07:12 AM BP: 101/58 mmHg * Patient Location: 2\S\S239\S\1 HR: 72 * : 1935 (M/d/) Gender: Male Height: 65 in * Age: 81 yrs Ethnicity: [place] Weight: 105 lb * Ordering Physician: Brittany Reid * Referring Physician: JoséM iguel Tolbert * Performed By: Mara Mujica RDCS * * Reason For Study: EKG changes, increased troponin * BSA: 1.5 m2 * -- Conclusions -- * Left ventricular systolic function is normal. * Grade I diastolic dysfunction, (abnormal relaxation pattern). * The left ventricular wall motion is normal. * Right ventricular systolic pressure is normal. Procedure Details * A complete two-dimensional transthoracic echocardiogram was performed (2D, M-mode, Doppler and color flow Doppler). * A contrast injection of Definity was performed to improve assessment of LV function. * Contrast was injected into an intravenous site in the left arm. * One vial of Definity ultrasound contrast was diluted in normal saline to a total volume of 10 ml. A total of '2' ml of solution was administered during imaging. * Lot # [id number] of Definity utilized for procedure. * Expiration date 1 Mar 30. * The attending nurse who injected the contrast agent was Luther Caballero RN. Left Ventricle * The left ventricle is normal in size. * There is normal left ventricular wall thickness. * Ejection Fraction = 55-60%. * Left ventricular systolic function is normal. * Grade I diastolic dysfunction, (abnormal relaxation pattern). * The left ventricular wall motion is normal. Right Ventricle * The right ventricle is normal in size and function. * The right ventricular systolic function is normal as assessed by tricuspid annular plane systolic excursion (TAPSE) (normal >1.5 cm). Atria * The left atrial size is normal. * Right atrial size is normal. Mitral Valve * The mitral valve anatomy is normal. * Significant mitral regurgitation is absent. Tricuspid Valve * The tricuspid valve is not well visualized, but is grossly normal. * There is trace tricuspid regurgitation. * Right ventricular systolic pressure is normal. Aortic Valve * The aortic valve is trileaflet. * Left coronary cusp is calcified and poorly mobile * No hemodynamically significant valvular aortic stenosis. * There is no significant aortic regurgitation. Pulmonic Valve * The pulmonic valve is normal in structure and function. Great Vessels * The aortic root is normal size. Pericardium/Pleural * There is no pericardial effusion. Great Vessels * Normal inferior vena cava size and collapsability with sniff indicates a normal right atrial pressure of 3 mmHg MMode 2D Measurements and Calculations IVSd 0.84 cm LVIDd 4.0 cm LVIDs 2.6 cm LVPWd 1.1 cm IVS/LVPW 0.78 FS 35.0 % EDV(Teich) 68.3 ml ESV(Teich) 24.0 ml EF(Teich) 64.9 % EDV(cubed) 62.0 ml ESV(cubed) 17.0 ml EF(cubed) 72.5 % LV mass(C)d 118.5 grams LV mass(C)dI 78.8 grams/m\S\2 SV(Teich) 44.3 ml SI(Teich) 29.5 ml/m\S\2 SV(cubed) 45.0 ml SI(cubed) 29.9 ml/m\S\2 Ao root diam 2.5 cm Ao root area 5.0 cm\S\2 ACS 1.6 cm LA dimension 2.3 cm LA/Ao 0.92 LVAd ap4 27.4 cm\S\2 LVLd ap4 7.7 cm EDV(MOD-sp4) 80.5 ml EDV(sp4-el) 83.4 ml LVAs ap4 14.9 cm\S\2 LVLs ap4 6.5 cm ESV(MOD-sp4) 28.2 ml ESV(sp4-el) 29.1 ml EF(MOD-sp4) 65.0 % EF(sp4-el) 65.1 % LVAd ap2 30.6 cm\S\2 LVLd ap2 7.8 cm EDV(MOD-sp2) 98.5 ml EDV(sp2-el) 101.8 ml LVAs ap2 15.8 cm\S\2 LVLs ap2 6.5 cm ESV(MOD-sp2) 32.0 ml ESV(sp2-el) 32.7 ml EF(MOD-sp2) 67.6 % EF(sp2-el) 67.8 % LVLd %diff 2.2 % EDV(MOD-bp) 90.5 ml LVLs %diff 0.29 % ESV(MOD-bp) 30.1 ml EF(MOD-bp) 66.8 % SV(MOD-sp4) 52.4 ml SI(MOD-sp4) 34.8 ml/m\S\2 SV(MOD-sp2) 66.6 ml SI(MOD-sp2) 44.2 ml/m\S\2 SV(MOD-bp) 60.5 ml SI(MOD-bp) 40.2 ml/m\S\2 SV(sp4-el) 54.2 ml SI(sp4-el) 36.1 ml/m\S\2 SV(sp2-el) 69.1 ml SI(sp2-el) 45.9 ml/m\S\2 Doppler Measurements and Calculations MV E max kaleb 66.9 cm/sec MV A max kaleb 66.0 cm/sec MV E/A 1.0 MV dec time 0.23 sec Ao V2 max 105.1 cm/sec Ao max PG 4.4 mmHg Ao max PG (full) 0.69 mmHg LV V1 max PG 3.7 mmHg LV V1 max 96.5 cm/sec PA V2 max 84.2 cm/sec PA max PG 2.8 mmHg PA acc slope 431.0 cm/sec\S\2 PA acc time 0.11 sec TR max kaleb 96.4 cm/sec PA pr(Accel) 29.9 mmHg
[2017-01-27] MEDS: SODIUM CHLORIDE 0.9% 1000ML 1,000 ML IV SCH ×2 (08:57→18:26)
[2017-01-27] MEDS ORDERED: BOOST VANILLA PO SCH ×2 (09:00)
--- NOTE | 2017-01-27 11:38 | Medical Student: [facility] ---
Med Student Progress Note Date of Service Jan 27, 2017. Subjective Pt evaluation today including: conversation w/ patient, conversation w/ family , physical exam, chart review, lab review, review of studies Pt is an 81 yo M who presented to the ED with decreased oral intake. Family members reported that he has had a significant decrease in appetite and only had some oatmeal and Boost at home yesterday. He was diagnosed with colon cancer in May and is on Xeloda for chemotherapy. The most recent round of chemo was stopped last Thursday after complaints of eye soreness. He is found to be hyponatremic (122) at the ED and has been receiving normal saline. Had some nausea yesterday, but has not had vomiting or diarrhea. He says he feels better today and was eating breakfast when I talked with him. He reports regaining sense of taste and well as noticing increase in appetite. Pt has an ileostomy bag in place. Review of Systems Constitutional: No fever, No chills Eyes: No worsening of vision ENT: No hearing loss Respiratory: No cough, No sputum, No wheezing Cardiac: No chest pain, No orthopnea Abdomen: No pain, No nausea Musculoskeletal: No joint pain Male : No dysuria Neurologic: No memory loss Psychiatric: No depression symptoms Heme: No abnormal bleeding/bruising Skin: No rash, No itch Objective Vital Signs Date Time Temp Pulse Resp B/P (MAP) Pulse Ox O2 Delivery O2 Flow Rate FiO2 01/27/17 10:49 36.6 65 18 99 01/27/17 08:00 Room Air 01/27/17 07:18 36.6 65 18 111/54 (73) 99 01/27/17 04:00 Room Air 01/27/17 03:33 36.8 72 18 101/58 (72) 97 Room Air 01/27/17 00:00 Room Air 01/26/17 23:40 36.8 78 18 106/63 (77) 97 Room Air 01/26/17 21:50 36.3 90 22 122/71 97 Room Air 01/26/17 20:50 36.3 90 22 122/71 (88) 97 Room Air 01/26/17 19:59 76 20 107/71 97 Room Air 01/26/17 17:21 80 20 103/68 97 Room Air 01/26/17 16:58 80 20 104/61 Room Air 80 103/68 92/60 01/26/17 16:47 87 01/26/17 15:59 36.5 92 18 94/63 100 Room Air Physical Exam General Appearance: no apparent distress, + thin Eyes: bilateral eyes normal inspection, bilateral eyes PERRL, bilateral eyes EOMI ENT: normal ENT inspection, hearing grossly normal Neck: supple, no adenopathy Respiratory/Chest: chest non-tender, lungs clear, normal breath sounds, no respiratory distress Cardiovascular: regular rate, rhythm, no edema, no gallop, no JVD, no murmur Abdomen: normal bowel sounds, non tender, + pertinent finding (ileostomy bag in place with dark green drainage) Extremities: normal range of motion, non-tender, normal inspection, no pedal edema, no calf tenderness Neurologic/Psychiatric: no motor/sensory deficits, alert, normal mood/affect, oriented x 3 Skin: normal color, warm/dry Laboratory Results Last 24 Hours Test 01/26/17 16:44 01/26/17 17:04 01/26/17 17:45 01/26/17 21:58 White Blood Count 6.40 K/uL 5.48 K/uL Red Blood Count 4.17 M/uL 3.59 M/uL Hemoglobin 12.7 g/dL 11.0 g/dL Hematocrit 37.4 % 32.1 % Mean Corpuscular Volume 89.7 fL 89.4 fL Mean Corpuscular Hemoglobin 30.5 pg 30.6 pg Mean Corpuscular Hemoglobin Concent 34.0 g/dl 34.3 g/dl Platelet Count 424 K/uL 369 K/uL Mean Platelet Volume 9.8 fL 9.1 fL Neutrophils (%) (Auto) 59.9 % Lymphocytes (%) (Auto) 25.9 % Monocytes (%) (Auto) 13.1 % Eosinophils (%) (Auto) 0.6 % Basophils (%) (Auto) 0.2 % Neutrophils # (Auto) 3.83 K/uL Lymphocytes # (Auto) 1.66 K/uL Monocytes # (Auto) 0.84 K/uL Eosinophils # (Auto) 0.04 K/uL Basophils # (Auto) 0.01 K/uL RDW Standard Deviation 66.0 fL 63.9 fL RDW Coefficient of Variation 21.2 % 21.3 % Immature Granulocyte % (Auto) 0.3 % Immature Granulocyte # (Auto) 0.02 K/uL Anisocytosis PRESENT Ovalocytes 1+ Echinocytes 1+ Sodium Level 122 mmol/L 128 mmol/L Potassium Level mmol/L 4.4 mmol/L 3.9 mmol/L Chloride Level 90 mmol/L 93 mmol/L Carbon Dioxide Level 26 mmol/L 28 mmol/L Anion Gap 6.0 mmol/L 8.0 mmol/L Blood Urea Nitrogen 26 mg/dl 21 mg/dl Creatinine 1.25 mg/dl 0.96 mg/dl Est Creatinine Clear Calc Drug Dose 30.9 ml/min 40.3 ml/min Estimated GFR () 61.8 85.0 Estimated GFR (Non- 53.3 73.3 BUN/Creatinine Ratio 20.6 21.4 Random Glucose 157 mg/dl 179 mg/dl Calcium Level 8.6 mg/dl 8.0 mg/dl Magnesium Level mg/dl 1.9 mg/dl Total Bilirubin 0.7 mg/dl Aspartate Amino Transf (AST/SGOT) U/L 15 U/L Alanine Aminotransferase (ALT/SGPT) 22 U/L Alkaline Phosphatase 69 U/L Total Creatine Kinase U/L 49 U/L Troponin I 0.063 ng/ml 0.089 ng/ml Total Protein 7.0 gm/dl Albumin 2.9 gm/dl Globulin 4.1 gm/dl Albumin/Globulin Ratio 0.7 Thyroid Stimulating Hormone (TSH) 13.000 uIu/ml Free Thyroxine 1.58 ng/dl Urine Color DK YELLOW Urine Appearance CLEAR Urine pH 5.0 Urine Specific [place] 1.023 Urine Protein TRACE Urine Glucose (UA) NEG Urine Ketones TRACE Urine Occult Blood NEG Urine Nitrite NEG Urine Bilirubin NEG Urine Urobilinogen NEG Urine Leukocyte Esterase NEG Urine WBC (Auto) 1-5 /hpf Urine RBC (Auto) 0-4 /hpf Urine Hyaline Casts (Auto) 10-30 /lpf Urine Epithelial Cells (Auto) 10-20 /lpf Urine Bacteria (Auto) NEG Urine Pathogenic Casts 0-3 GRANULAR CASTS /lpf Test 01/27/17 04:00 01/27/17 07:54 Sodium Level 126 mmol/L Potassium Level 3.8 mmol/L Chloride Level 94 mmol/L Carbon Dioxide Level 28 mmol/L Anion Gap 4.0 mmol/L Blood Urea Nitrogen 20 mg/dl Creatinine 0.82 mg/dl Est Creatinine Clear Calc Drug Dose 47.2 ml/min Estimated GFR () 95.4 Estimated GFR (Non- 82.4 BUN/Creatinine Ratio 23.8 Random Glucose 133 mg/dl Calcium Level 7.9 mg/dl Troponin I 0.084 ng/ml Cortisol AM Sample 20.29 mcg/dl Medications Current Inpatient Medications Medications (Trade) Dose Ordered Sig/[place] Route Start Time Stop Time Status Last Admin Dose Admin Sodium Chloride 1,000 ml @ 100 mls/hr Q10H IV 01/26/17 22:30 02/25/17 22:29 01/27/17 08:57 100 MLS/HR Acetaminophen (Tylenol Tab) 650 mg Q4H PRN PO 01/26/17 19:15 02/25/17 19:14 Aspirin (Ecotrin Tab) 81 mg BID PO 01/26/17 21:00 02/25/17 20:59 01/27/17 08:53 81 MG Ferrous Sulfate (Feosol Tab) 325 mg BIDM PO 01/27/17 07:30 02/26/17 07:59 01/27/17 08:51 325 MG Magnesium Oxide (Mag-Ox Tab) 400 mg DAILY PO 01/27/17 09:00 02/26/17 08:59 01/27/17 08:52 400 MG Nitroglycerin (Nitrostat Tab) 0.4 mg UD PRN UT 01/26/17 19:30 02/25/17 19:29 Enteral Nutritional Formula (Boost) 1 can DAILY PO 01/27/17 09:00 02/26/17 08:59 01/27/17 08:57 1 CAN Ondansetron HCl (Zofran Tab) 8 mg Q8 PRN PO 01/26/17 19:30 02/25/17 19:29 Simvastatin (Zocor Tab) 40 mg QPM PO 01/26/17 21:00 02/25/17 20:59 01/26/17 22:53 40 MG Tamsulosin HCl (Flomax Cap) 0.4 mg DAILY PO 01/27/17 09:00 02/26/17 08:59 01/27/17 08:53 0.4 MG Pantoprazole Sodium (Protonix Tab) 40 mg QPM PO 01/26/17 21:00 02/25/17 20:59 01/26/17 22:53 40 MG Levothyroxine Sodium (Synthroid Tab) 100 mcg DAILYBB PO 01/27/17 06:00 02/26/17 06:59 01/27/17 05:52 100 MCG Heparin Sodium (Porcine) (Heparin Sq 5000 Unit/0.5ml) 5,000 unit Q12 SQ 01/26/17 21:00 02/25/17 20:59 Al Hydroxide/Mg Hydroxide (Maalox Susp) 15 ml Q4H PRN PO 01/27/17 03:15 02/26/17 03:14 01/27/17 03:23 15 ML Assessment and Plan Assessment and Plan: Pt is an 81 yo M with hx of colon cancer who presented with hyponatremia likely secondary to decreased oral intake. Hyponatremia - Likely secondary to anorexia. Pt reports improvement in appetite since hospitalization - NSS @ 100 mls/hr , will continue to recheck/monitor - Cortisol AM sample: 20.29 - TSH elevated Elevated troponin, CAD, RBBB on EKG - Telemetry. No acute overnight events. - Trend trops - Pt is asymptomatic, continue aspirin and statin - Echo from this morning shows grade I diastolic dysfunction (abnormal relaxation pattern) Hypothyroidism - TSH: 13 - Patient was on 75 mcg of levothyroxine at home, increased to 100 mcg Colon CA - Xeloda on hold for now BPH - Continue Flomax
--- NOTE | 2017-01-27 15:46 | Progress Note ---
Subjective Date of Service: Jan 27, 2017. Subjective Pt evaluation today including: conversation w/ patient, conversation w/ family , physical exam, chart review, lab review, review of studies, review of inpatient medication list Resting comfortably in bed States taste improved Weakness improved Toelrating more PO at this time Problem List Medical Problems: (1) Altered bowel elimination due to intestinal ostomy Status: Acute (2) Closed head injury Status: Acute (3) Dehydration Status: Acute (4) Dehydration Status: Acute (5) Dehydration Status: Acute (6) Diarrhea Status: Acute (7) Fracture of ramus of right pubis Status: Acute (8) High output ileostomy Status: Acute (9) Hip fracture, right Status: Acute (10) Hyperkalemia Status: Acute (11) Hypotension Status: Acute (12) Metabolic acidosis Status: Acute (13) Small bowel obstruction Status: Acute (14) Vomiting Status: Acute Social History Problems: (1) History of bowel resection Status: Acute Review of Systems Constitutional: No fever, No chills, No sweats, No weakness Eyes: No worsening of vision, No eye pain, No redness, No discharge ENT: No hearing loss, No unusual epistaxis, No nasal symptoms, No sore throat Respiratory: No cough, No sputum, No wheezing, No shortness of breath Cardiac: No chest pain, No orthopnea, No PND, No edema Abdomen: No pain, No nausea, No vomiting, No diarrhea Musculoskeletal: No joint pain, No muscle pain, No swelling, No calf pain Male : No dysuria, No urinary frequency, No incontinence, No slowing stream Neurologic: No memory loss, No paralysis, No weakness, No vertigo Psychiatric: No depression symptoms, No anhedonism, No anxiety Heme: No abnormal bleeding/bruising, No clotting problems Skin: No rash, No itch Objective Vital Signs Date Time Temp Pulse Resp B/P (MAP) Pulse Ox O2 Delivery O2 Flow Rate FiO2 01/27/17 15:22 36.5 72 20 91/58 (69) 99 Room Air 01/27/17 11:48 36.5 75 16 94/60 (71) 98 01/27/17 10:49 36.6 65 18 99 01/27/17 08:00 Room Air 01/27/17 07:18 36.6 65 18 111/54 (73) 99 01/27/17 04:00 Room Air 01/27/17 03:33 36.8 72 18 101/58 (72) 97 Room Air 01/27/17 00:00 Room Air 01/26/17 23:40 36.8 78 18 106/63 (77) 97 Room Air 01/26/17 21:50 36.3 90 22 122/71 97 Room Air 01/26/17 20:50 36.3 90 22 122/71 (88) 97 Room Air 01/26/17 19:59 76 20 107/71 97 Room Air 01/26/17 17:21 80 20 103/68 97 Room Air 01/26/17 16:58 80 20 104/61 Room Air 80 103/68 92/60 01/26/17 16:47 87 01/26/17 15:59 36.5 92 18 94/63 100 Room Air Physical Exam General Appearance: WD/WN, no apparent distress Eyes: normal inspection, PERRL, EOMI, sclerae normal Neck: supple, no adenopathy, thyroid normal, no JVD Respiratory/Chest: chest non-tender, lungs clear, normal breath sounds, no respiratory distress Cardiovascular: regular rate, rhythm, no edema, no gallop, no JVD Abdomen: normal bowel sounds, non tender, soft, no pulsatile mass Extremities: normal range of motion, non-tender, normal inspection, no pedal edema Neurologic/Psychiatric: 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 nml as tested, no motor/sensory deficits, alert, oriented x 3 Laboratory Results Last 24 Hours Test 01/26/17 16:44 01/26/17 17:04 01/26/17 17:45 01/26/17 21:58 White Blood Count 6.40 K/uL 5.48 K/uL Red Blood Count 4.17 M/uL 3.59 M/uL Hemoglobin 12.7 g/dL 11.0 g/dL Hematocrit 37.4 % 32.1 % Mean Corpuscular Volume 89.7 fL 89.4 fL Mean Corpuscular Hemoglobin 30.5 pg 30.6 pg Mean Corpuscular Hemoglobin Concent 34.0 g/dl 34.3 g/dl Platelet Count 424 K/uL 369 K/uL Mean Platelet Volume 9.8 fL 9.1 fL Neutrophils (%) (Auto) 59.9 % Lymphocytes (%) (Auto) 25.9 % Monocytes (%) (Auto) 13.1 % Eosinophils (%) (Auto) 0.6 % Basophils (%) (Auto) 0.2 % Neutrophils # (Auto) 3.83 K/uL Lymphocytes # (Auto) 1.66 K/uL Monocytes # (Auto) 0.84 K/uL Eosinophils # (Auto) 0.04 K/uL Basophils # (Auto) 0.01 K/uL RDW Standard Deviation 66.0 fL 63.9 fL RDW Coefficient of Variation 21.2 % 21.3 % Immature Granulocyte % (Auto) 0.3 % Immature Granulocyte # (Auto) 0.02 K/uL Anisocytosis PRESENT Ovalocytes 1+ Echinocytes 1+ Sodium Level 122 mmol/L 128 mmol/L Potassium Level mmol/L 4.4 mmol/L 3.9 mmol/L Chloride Level 90 mmol/L 93 mmol/L Carbon Dioxide Level 26 mmol/L 28 mmol/L Anion Gap 6.0 mmol/L 8.0 mmol/L Blood Urea Nitrogen 26 mg/dl 21 mg/dl Creatinine 1.25 mg/dl 0.96 mg/dl Est Creatinine Clear Calc Drug Dose 30.9 ml/min 40.3 ml/min Estimated GFR () 61.8 85.0 Estimated GFR (Non- 53.3 73.3 BUN/Creatinine Ratio 20.6 21.4 Random Glucose 157 mg/dl 179 mg/dl Calcium Level 8.6 mg/dl 8.0 mg/dl Magnesium Level mg/dl 1.9 mg/dl Total Bilirubin 0.7 mg/dl Aspartate Amino Transf (AST/SGOT) U/L 15 U/L Alanine Aminotransferase (ALT/SGPT) 22 U/L Alkaline Phosphatase 69 U/L Total Creatine Kinase U/L 49 U/L Troponin I 0.063 ng/ml 0.089 ng/ml Total Protein 7.0 gm/dl Albumin 2.9 gm/dl Globulin 4.1 gm/dl Albumin/Globulin Ratio 0.7 Thyroid Stimulating Hormone (TSH) 13.000 uIu/ml Free Thyroxine 1.58 ng/dl Urine Color DK YELLOW Urine Appearance CLEAR Urine pH 5.0 Urine Specific [place] 1.023 Urine Protein TRACE Urine Glucose (UA) NEG Urine Ketones TRACE Urine Occult Blood NEG Urine Nitrite NEG Urine Bilirubin NEG Urine Urobilinogen NEG Urine Leukocyte Esterase NEG Urine WBC (Auto) 1-5 /hpf Urine RBC (Auto) 0-4 /hpf Urine Hyaline Casts (Auto) 10-30 /lpf Urine Epithelial Cells (Auto) 10-20 /lpf Urine Bacteria (Auto) NEG Urine Pathogenic Casts 0-3 GRANULAR CASTS /lpf Test 01/27/17 04:00 01/27/17 07:54 01/27/17 13:49 Sodium Level 126 mmol/L 129 mmol/L Potassium Level 3.8 mmol/L Chloride Level 94 mmol/L Carbon Dioxide Level 28 mmol/L Anion Gap 4.0 mmol/L Blood Urea Nitrogen 20 mg/dl Creatinine 0.82 mg/dl Est Creatinine Clear Calc Drug Dose 47.2 ml/min Estimated GFR () 95.4 Estimated GFR (Non- 82.4 BUN/Creatinine Ratio 23.8 Random Glucose 133 mg/dl Calcium Level 7.9 mg/dl Troponin I 0.084 ng/ml Cortisol AM Sample 20.29 mcg/dl Assessment and Plan Mr. English is an 81 year old man here for hyponatremia in the setting of anorexia. Hyponatremia secondary to anorexia, improving, pt noted to be chronically low with sodium ranging in 130s - admit telemetry - NSS @100 and urine Na in AM - Cortisol WNL - TSH elevated Increased troponin, new RBBB on EKG, CAD - tele - trend trops, mildy elev, likely from renal insuff - Echo to assess for WMA - patient asymptomatic - continue ASA, statin Hypothyroidism - TSH 13 - Patient reports taking his levothyroxine every day at least half hour before eating breakfast - increased levothyroxine to 100 mcg from 75 Colon CA - continue to hold Xeloda for now BPH - continue Flomax
[2017-01-27] MEDS: BOOST PLUS VANILLA PO SCH ×2 (17:27)
[2017-01-27] MEDS: PANTOprazole SOD 40 MG TAB PO SCH (20:11)
[2017-01-27] MEDS: SIMVASTATIN 40 MG TAB PO SCH (20:12)
[2017-01-28] MEDS: SODIUM CHLORIDE 0.9% 1000ML 1,000 ML IV SCH (04:02)
[2017-01-28 04:14] VITALS: BP 98/65; PULSE 78; TEMP 36.4; O2SAT 99
[2017-01-28] MEDS: LEVOTHYROXINE 100 MCG TAB PO SCH (06:00)
[2017-01-28 07:24] VITALS: BP 97/55; PULSE 78; TEMP 36.5; O2SAT 98
[2017-01-28] MEDS: ASPIRIN 81 MG ECTAB PO SCH (08:22)
[2017-01-28] MEDS: BOOST PLUS VANILLA PO SCH ×2 (08:23)
[2017-01-28] MEDS: TAMSULOSIN HCL 0.4 MG CAP PO SCH (08:23)
[2017-01-28] MEDS: FERROUS SULFATE 325 MG TAB PO SCH (08:23)
[2017-01-28] MEDS: MAGNESIUM OXIDE 400 MG TAB PO SCH (08:24)
[2017-01-28] MEDS: HEPARIN SOD 5000 UNIT/0.5 ML CARP SQ SCH (08:24)
[2017-01-28 08:30] VITALS: O2SAT 98
[2017-01-28 08:58] LABS: BASO % 0.2 %; BASO ABS # 0.01 K/uL (0-0.2); EOS % 0.5 %; HEMATOCRIT 35.5 % (42-52); IG% 0.3 %; LYMPH % 17.7 %; LYMPH ABS # 1.13 K/uL (1.2-3.4); MEAN CORPUSCULAR HEMOGLOBIN 30.3 pg (25-34); MEAN CORPUSCULAR HGB CONC 33.2 g/dl (32-36); MEAN PLATELET VOLUME 8.9 fL (7.4-10.4); MONO % 10.8 %; NEUT % 70.5 %; PLATELET COUNT 372 K/uL (130-400)
[2017-01-28 09:32] LABS: BUN/CREATININE RATIO 13.2 (10-20); CALCIUM 7.8 mg/dl (8.5-10.1); CREATININE 0.73 mg/dl (0.60-1.40); POTASSIUM 3.9 mmol/L (3.5-5.1)
[2017-01-28 09:33] LABS: COMPLETE YES; ECHINOCYTES 1+; TOXIC GRANULATION 1+
[2017-01-28 11:27] VITALS: BP 99/63; PULSE 73; TEMP 36.3; O2SAT 100
--- NOTE | 2017-01-28 13:33 | Medical Student: [facility] ---
Med Student Progress Note Date of Service Jan 28, 2017. Subjective Pt evaluation today including: conversation w/ patient, physical exam, chart review, lab review Pt is an 81 yo M with hx of colon cancer receiving Xeloda for chemo who presented with decrease oral intake and found to be hyponatremic. He has been receiving normal saline at the hospital to correct the hyponatremia. Pt resting in bed. He says today his appetite is about the same as yesterday. He has been receiving Boost with meals due to decreased appetite. Pt denies any pain, nausea, or vomiting. Review of Systems Constitutional: No fever, No chills Eyes: No worsening of vision ENT: No hearing loss Respiratory: No cough, No sputum, No wheezing, No shortness of breath, No dyspnea on exertion Cardiac: No chest pain Abdomen: No pain, No nausea, No vomiting Male : No dysuria Neurologic: No memory loss Psychiatric: No depression symptoms Heme: No abnormal bleeding/bruising Endo: No fatigue Skin: No rash Objective Vital Signs Date Time Temp Pulse Resp B/P (MAP) Pulse Ox O2 Delivery O2 Flow Rate FiO2 01/28/17 11:27 36.3 73 18 99/63 (75) 100 Room Air 01/28/17 08:30 98 Room Air 01/28/17 07:24 36.5 78 18 97/55 (69) 98 Room Air 01/28/17 04:14 36.4 78 20 98/65 (76) 99 Room Air 01/27/17 23:56 36.5 81 17 101/57 (72) 97 Room Air 01/27/17 23:25 Room Air 01/27/17 16:00 99 Room Air 01/27/17 15:22 36.5 72 20 91/58 (69) 99 Room Air Physical Exam General Appearance: no apparent distress, + thin Eyes: bilateral eyes normal inspection, bilateral eyes PERRL, bilateral eyes EOMI ENT: normal ENT inspection, hearing grossly normal Neck: supple, no adenopathy, thyroid normal Respiratory/Chest: chest non-tender, lungs clear, normal breath sounds, no respiratory distress Cardiovascular: regular rate, rhythm, no edema, no gallop, no JVD, no murmur Abdomen: non tender, soft, + pertinent finding (ileostomy bag in place) Extremities: normal range of motion, non-tender, normal inspection Neurologic/Psychiatric: no motor/sensory deficits, alert, normal mood/affect, oriented x 3 Skin: normal color, warm/dry Laboratory Results Last 24 Hours Test 01/27/17 13:49 01/28/17 08:43 Sodium Level 129 mmol/L 128 mmol/L White Blood Count 6.40 K/uL Red Blood Count 3.90 M/uL Hemoglobin 11.8 g/dL Hematocrit 35.5 % Mean Corpuscular Volume 91.0 fL Mean Corpuscular Hemoglobin 30.3 pg Mean Corpuscular Hemoglobin Concent 33.2 g/dl Platelet Count 372 K/uL Mean Platelet Volume 8.9 fL Neutrophils (%) (Auto) 70.5 % Lymphocytes (%) (Auto) 17.7 % Monocytes (%) (Auto) 10.8 % Eosinophils (%) (Auto) 0.5 % Basophils (%) (Auto) 0.2 % Neutrophils # (Auto) 4.52 K/uL Lymphocytes # (Auto) 1.13 K/uL Monocytes # (Auto) 0.69 K/uL Eosinophils # (Auto) 0.03 K/uL Basophils # (Auto) 0.01 K/uL RDW Standard Deviation 69.2 fL RDW Coefficient of Variation 22.1 % Immature Granulocyte % (Auto) 0.3 % Immature Granulocyte # (Auto) 0.02 K/uL Toxic Granulation 1+ Macrocytosis PRESENT Echinocytes 1+ Potassium Level 3.9 mmol/L Chloride Level 96 mmol/L Carbon Dioxide Level 24 mmol/L Anion Gap 8.0 mmol/L Blood Urea Nitrogen 10 mg/dl Creatinine 0.73 mg/dl Est Creatinine Clear Calc Drug Dose 51.2 ml/min Estimated GFR () 100.1 Estimated GFR (Non- 86.4 BUN/Creatinine Ratio 13.2 Random Glucose 135 mg/dl Calcium Level 7.8 mg/dl Medications Current Inpatient Medications Medications (Trade) Dose Ordered Sig/Lenka Route Start Time Stop Time Status Last Admin Dose Admin Acetaminophen (Tylenol Tab) 650 mg Q4H PRN PO 01/26/17 19:15 02/25/17 19:14 Aspirin (Ecotrin Tab) 81 mg BID PO 01/26/17 21:00 02/25/17 20:59 01/28/17 08:22 81 MG Ferrous Sulfate (Feosol Tab) 325 mg BIDM PO 01/27/17 07:30 02/26/17 07:59 01/28/17 08:23 325 MG Magnesium Oxide (Mag-Ox Tab) 400 mg DAILY PO 01/27/17 09:00 02/26/17 08:59 01/28/17 08:24 400 MG Nitroglycerin (Nitrostat Tab) 0.4 mg UD PRN UT 01/26/17 19:30 02/25/17 19:29 Ondansetron HCl (Zofran Tab) 8 mg Q8 PRN PO 01/26/17 19:30 02/25/17 19:29 Simvastatin (Zocor Tab) 40 mg QPM PO 01/26/17 21:00 02/25/17 20:59 01/27/17 20:12 40 MG Tamsulosin HCl (Flomax Cap) 0.4 mg DAILY PO 01/27/17 09:00 02/26/17 08:59 01/28/17 08:23 0.4 MG Pantoprazole Sodium (Protonix Tab) 40 mg QPM PO 01/26/17 21:00 02/25/17 20:59 01/27/17 20:11 40 MG Levothyroxine Sodium (Synthroid Tab) 100 mcg DAILYBB PO 01/27/17 06:00 02/26/17 06:59 01/28/17 06:00 100 MCG Heparin Sodium (Porcine) (Heparin Sq 5000 Unit/0.5ml) 5,000 unit Q12 SQ 01/26/17 21:00 02/25/17 20:59 Al Hydroxide/Mg Hydroxide (Maalox Susp) 15 ml Q4H PRN PO 01/27/17 03:15 02/26/17 03:14 01/27/17 03:23 15 ML Enteral Nutritional Formula (Boost Plus Vanilla) 1 can BIDM PO 01/27/17 17:00 02/26/17 16:59 01/28/17 08:23 1 CAN Assessment and Plan Assessment and Plan: Pt is an 81 yo M with a hx of colon cancer who presented with hyponatremia. Hyponatremia - On admission 122, today 128 - Likely secondary to anorexia / dehydration - Cortisol AM sample: 20.29 - TSH elevated - Normal saline @ 100 mls/hr - Discharge on salt tablets Elevated troponin, CAD, RBBB on EKG - Pt is asymptomatic, continue aspirin and statin - Echo shows grade I diastolic dysfunction (abnormal relaxation pattern) Hypothyroidism - TSH: 13 - Patient was on 75 mcg of levothyroxine at home, increased to 100 mcg Colon CA - Xeloda on hold for now - F/u outpt with [facility] Heme/Onc Dr. Tolbert BPH - Continue Flomax
--- NOTE | 2017-01-28 14:39 | Discharge Instructions ---
Discharge Instructions Date of Service Jan 28, 2017. Admission Reason for Admission: Hyponatremia Discharge Discharge Diagnosis / Problem: Hyponatremia Discharge Goals Goal(s): Decrease discomfort, Improve function, Increase independence, Improve disease control, Learn about illness, Diagnostic testing, Therapeutic intervention, Prevent Disease Progression Activity Recommendations Activity Limitations: resume your previous activity Exercise/Sports Limitations: as tolerated . Instructions / Follow-Up Instructions / Follow-Up Patient to be discharged home Please stop taking xeloda Can resume all other medications Patient was admitted with weakness likely related to hyponatremia (low sodium) This was corrected with the IV fluids he received here Patient now stable for discharge home Recommend he can take 1-2 salt tablets a day ONLY if patient has poor appetite and not eating well Please follow up with Dr Tolbert in 1-2 weeks Current Hospital Diet Patient's current hospital diet: Regular Diet Discharge Diet Recommended Diet: Regular Diet Pending Studies Studies pending at discharge: no Laboratory Results Hemoglobin A1c Test 11/30/16 05:04 Range/Units Estimated Average Glucose 126 mg/dl Hemoglobin A1c 6.0 H 4.5-5.6 % Lipid Panel Test 01/05/17 10:32 Range/Units Triglycerides Level 87 0-150 mg/dl Cholesterol Level 136 0-200 mg/dl HDL Cholesterol 65 mg/dl Cholesterol/HDL Ratio 2.1 LDL Cholesterol, Calculated 54 mg/dl Medical Emergencies . Who to Call and When: Medical Emergencies: If at any time you feel your situation is an emergency, please call 911 immediately. . Non-Emergent Contact Non-Emergency issues call your: Primary Care Provider Call Non-Emergent contact if: you have a fever, your pain is worsening . . "Provider Documentation" section prepared by Colton Millard. . VTE Core Measure Inpt VTE Proph given/why not?: Unfractionated heparin SQ
--- NOTE | 2017-01-28 14:45 | Discharge Summary ---
Discharge Summary Date of Service Jan 28, 2017. Discharge Summary Admission Date: Jan 26, 2017 at 19:26 Discharge Date: Jan 28, 2017 Discharge Disposition: Home Principal Diagnosis: Hyponatremia, weakness Immunizations: Have You Had Influenza Vaccine: Yes Influenza Vaccine Date: Nov 03, 2012 History of Tetanus Vaccine?: UTD History of Pneumococcal: Yes History of Hepatitis B Vaccine: Unknown Medication Reconciliation Continued Medications: Aspirin Buffered (Marvin Carb-Mag (Tri-Buffered Aspirin) 1 Tab Tab 81 MG PO BID for 45 Days, #90 TAB Take to prevent blood clots. Ferrous Sulfate (Ferrous Sulfate) 325 Mg Tab 325 MG PO BIDM for 30 Days, #60 TAB Take to restore blood count Levothyroxine Sodium (Synthroid) 75 Mcg Tab 75 MG PO QAM Loperamide Hcl (Loperamide Hcl) 1 Mg/7.5 Ml Eli 2 MG PO Q6H PRN for Diarrhea Magnesium Oxide (Mag-Ox) 400 Mg Tab 400 MG PO DAILY, TAB Nitroglycerin (Nitrostat) 0.4 Mg Tab 0.4 MG UT PRN Nutritional Supplements (Boost) 1 Liq Liq 1 CAN PO DAILY Omeprazole (Prilosec) 20 Mg Capcr 20 MG PO QPM, CAP Ondansetron Hcl (Zofran) 8 Mg Tab 8 MG PO Q8 PRN for Nausea, TAB MUST TAKE BEFORE TAKING CHEMO MED Simvastatin (Zocor) 40 Mg Tab 40 MG PO QPM Tamsulosin Hcl (Flomax) 0.4 Mg Cap 0.4 MG PO NOON, CAP Discontinued Medications: Capecitabine (Xeloda) 500 Mg Tab 500 MG PO UD, TAB TAKE 1000 MG PO BID FOR 14 DAYS THEN 7 DAYS OFF Discharge Exam Review of Systems: Constitutional: No fever, No chills, No sweats, No weakness ENT: No hearing loss, No unusual epistaxis, No nasal symptoms, No sore throat Respiratory: No cough, No sputum, No wheezing, No shortness of breath Cardiovascular: No chest pain, No orthopnea, No PND, No edema Abdomen: No pain, No nausea, No vomiting, No diarrhea Musculoskeletal: No joint pain, No muscle pain, No swelling, No calf pain Genitourinary - Male: No hematuria, No dysuria, No urinary frequency, No urinary urgency Neurologic: No memory loss, No paralysis, No weakness, No numbness/tingling Psychiatric: No depression symptoms, No anhedonism, No anxiety, No insomnia Endocrine: No fatigue, No excessive thirst, No excessive urination Integumentary: No rash, No itch Physical Exam: General Appearance: WD/WN, no apparent distress Eyes: normal inspection, PERRL, EOMI, sclerae normal ENT: normal ENT inspection, hearing grossly normal, TMs normal, pharynx normal Neck: supple, no adenopathy, thyroid normal, no JVD Respiratory/Chest: chest non-tender, lungs clear, normal breath sounds, no respiratory distress Cardiovascular: regular rate, rhythm, no edema, no gallop, no JVD Abdomen / GI: normal bowel sounds, non tender, soft, no organomegaly Neurologic/Psychiatric: no motor/sensory deficits, alert, normal mood/affect , oriented x 3 Skin: normal color, warm/dry, no rash Lymphatic: no adenopathy Hospital Course Mr. English is an 81 year old man here for hyponatremia in the setting of anorexia. Hyponatremia secondary to anorexia, improving, pt noted to be chronically low with sodium ranging in 130s - admit to telemetry - IV NSS @100cc/hr and now back to baseline, weakness resolved - Cortisol WNL, pt to be discharged home, xeloda to be discontinued, will follow up with oncology - Rec 1-2 salt tablets a day when pt having poor appetite and not eating well Increased troponin, new RBBB on EKG, CAD - tele - trend trops, mildy elev, likely from renal insuff, peak 0.084 - Echo 55-60% EF, diastolic dysfunction - patient asymptomatic - continue ASA, statin Hypothyroidism - TSH 13, T4 1.58 - Patient reports taking his levothyroxine every day at least half hour before eating breakfast - increased levothyroxine to 100 mcg from 75 Colon CA - continue to hold Xeloda for now, follow up with Dr. Tolbert on DC BPH - continue Flomax Total Time Spent: Greater than 30 minutes This includes examination of the patient, discharge planning, medication reconciliation, and communication with other providers. Discharge Instructions Please refer to the electronic Patient Visit Report (Discharge Instructions) for additional information.
[2017-01-28 15:26] VITALS: BP 97/67; PULSE 96; TEMP 36.6; O2SAT 99
[2017-01-28 15:27] VITALS: BP 99/63; PULSE 73; TEMP 36.3; O2SAT 100
== END 2017-01-28 16:30 | disposition home or self-care (01) | DRG 641 ==
LOC: C.EDB 15:59 → C.2T 19:26 → ENRESERV 19:45 → C.4E 01-27 11:10
PROVIDERS: ADMIT Family Medicine; ATTEND Hospitalist
DX: E87.1 Hypo-osmolality and hyponatremia (principal); C18.9 Malignant neoplasm of colon, unspecified; E86.0 Dehydration; R53.1 Weakness; F50.89 Other specified eating disorder; R43.8 Other disturbances of smell and taste; R74.8 Abnormal levels of other serum enzymes; I45.10 Unspecified right bundle-branch block; I51.9 Heart disease, unspecified; E03.9 Hypothyroidism, unspecified; N40.0 Benign prostatic hyperplasia without lower urinary tract symptoms; I25.2 Old myocardial infarction; Z93.2 Ileostomy status; Z79.82 Long term (current) use of aspirin; Z79.891 Long term (current) use of opiate analgesic; Z79.899 Other long term (current) drug therapy

== ENCOUNTER → 2017-01-28 | Outpatient (CLI) | payer OTHER ==
[~2017-01-28] MED LIST changes: -ERGO500037 PO; -RXC5 PO; -[UNRECOGNIZED DRUG - CODE] PO
== END | disposition home or self-care (01) ==
LOC: C.LAB1850 17:01
PROVIDERS: ATTEND Internal Medicine
DX: D50.9 Iron deficiency anemia, unspecified (principal); E87.1 Hypo-osmolality and hyponatremia; E83.42 Hypomagnesemia

== ENCOUNTER 2017-01-29 16:53 | Observation (INO) | payer OTHER ==
[~2017-01-29] VITALS: Ht 165.1 cm; Wt 45.9 kg
[~2017-01-29 16:53] MED LIST changes: -MAGN400T6 PO; -NTRGSL/4 UT; -ONDA8TAB6 PO; -PRLSR20 PO; -SIMV40TA2 PO; -TAMS0.4C38 PO; -XLD/500 PO
[2017-01-29 17:00] VITALS: BP 95/59; PULSE 85; TEMP 36.4; O2SAT 100
--- NOTE | 2017-01-29 17:00 | NUR ---
A: Pt arrived to room 281-1 via wheelchair and accompanied by family. Pt is A&Ox4 and denies pain at this time. Heart monitor applied. Ostomy bag intact to right lower abdomen. Physical assessment completed. See EMR. Call winter instructions given and call winter in reach. Code word obtained in private. Will continue to monitor.
[2017-01-29] MEDS ORDERED: ACETAMINOPHEN 325 MG TAB PO PRN (18:00)
[2017-01-29] MEDS ORDERED: NITROGLYCERIN 0.4 MG SL PER TAB CHARGE UT PRN (18:45)
[2017-01-29] MEDS ORDERED: ONDANSETRON 8 MG TAB PO PRN (18:45)
--- NOTE | 2017-01-29 18:56 | History and Physical ---
History & Physical Date & Time of Service: Jan 29, 2017 at 18:28 Chief Complaint: Hyponatremia Primary Care Physician: Sonido Riojas M.D. History of Present Illness Source: patient, family Mr. English was discharged yesterday and was sent direct admit here from [facility] due to hyponatremia with sodium 125. He is not having any symptoms particularly. Previous to the last admission he was here 8 days before that and wasn't eating or drinking much due to Xeloda (chemo) which was stopped recently due to sore eyes. He feels that if no one had told him his sodium was low he would have thought he was getting better as his fatigue and anorexia have improved. He does mention that his iliostomy has had liquid green stools for a number of weeks now and usually they are more formed stools. ROS Constitutional: no chills, aches, sweats or fever Respiratory: no sob,cough, sputum, or wheezing Cardiac: no chest pain, palpitations, edema, orthopnea or lightheadedness GI: no abdominal pain, nausea, or vomiting : no dysuria or hesitancy Extremities: no joint pain or weakness Skin: no rash, ulceration over sacrum All other systems reviewed and negative. Past Medical/Surgical History Medical Problems: (1) Colon cancer Status: Chronic (2) Coronary artery disease Status: Chronic (3) Hypercholesteremia Status: Chronic (4) Hypertension Status: Chronic (5) Kidney stones Status: Chronic (6) Myocardial infarct Status: Resolved (7) Vertigo Status: Chronic Family History Cancer Diabetes mellitus FHx: heart disease FHx: kidney disease/stones Social History Smoking Status: Former Smoker Drug Use: none Marital Status: Housing status: lives with significant other Occupational Status: retired Immunizations History of Influenza Vaccine: Yes Influenza Vaccine Date: Nov 03, 2012 History of Tetanus Vaccine?: UTD History of Pneumococcal: Yes History of Hepatitis B Vaccine: Unknown Multi-Drug Resistant Organisms History of MDRO: No Allergies Coded Allergies: Clarithromycin (Verified Allergy, Severe, "MAJOR RXN" ?, 01/29/17) Penicillins (Verified Allergy, Severe, "MAJOR RXN" ?, 01/29/17) Sulfa Antibiotics (Verified Allergy, Severe, "SULFA DRUGS": "MAJOR RXN"?, 01/29/17) Cephalosporins (Verified Allergy, Unknown, ?, 01/29/17) Diltiazem (Verified Allergy, Unknown, FLUSHING, 01/29/17) Morphine (Verified Allergy, Unknown, N/V, 01/29/17) Streptokinase (Verified Allergy, Unknown, ?, 01/29/17) Sulfonylureas (Verified Allergy, Unknown, RASH, 01/29/17) Codeine (Verified Adverse Reaction, Mild, NAUSEA / VOMITING, 01/29/17) Home Medications Scheduled Aspirin Buffered (Marvin Carb-Mag (Tri-Buffered Aspirin), 81 MG PO BID Ferrous Sulfate (Ferrous Sulfate), 325 MG PO BIDM Levothyroxine Sodium (Synthroid), 75 MG PO QAM Magnesium Oxide (Mag-Ox), 400 MG PO DAILY Nitroglycerin (Nitrostat), 0.4 MG UT PRN Nutritional Supplements (Boost), 1 CAN PO DAILY Omeprazole (Prilosec), 20 MG PO QPM Simvastatin (Zocor), 40 MG PO QPM Tamsulosin Hcl (Flomax), 0.4 MG PO NOON Scheduled PRN Loperamide Hcl (Loperamide Hcl), 2 MG PO Q6H PRN for Diarrhea Ondansetron Hcl (Zofran), 8 MG PO Q8 PRN for Nausea Physical Exam Vital Signs Date Time Temp Pulse Resp B/P (MAP) Pulse Ox O2 Delivery O2 Flow Rate FiO2 01/29/17 17:00 36.4 85 18 95/59 (71) 100 Room Air General: no distress Eyes: normal inspection, PERLL Respiratory: chest non tender, clear to auscultation, normal breath sounds, no respiratory distress, no accessory muscle use Cardiac: regular rate and rhythm, no rub or gallop, no murmur, no edema, no jvd GI/: active bowel sounds, no abd pain or tenderness, soft, non distended Extremities: normal range of motion, normal strength, non tender Neuro/Psych: alert and oriented x 3, normal mood and affect Skin: normal color, dry, decubitus ulcer over sacrum stage 2 Impression Assessment and Plan Mr. English is an 81 year old man here for hyponatremia Hyponatremia due to anorexia - admit tele - prp am. - sodium tablet 1 g daily - urine sodium 01/17 was 9, cortisol wnl during last admission - IVF CAD - continue ASA Colon CA - continue to hold Xeloda Hypothyroid - last admission TSH was 13 and levothyroxine was increased to 100 mcg/day, continue this dose Sacrum stage II decubitus - consult wound care nurse - turn and reposition q2h - ehob BPH - continue Flomax I personally interviewed and examined the patient. I agree with history of present illness and physical exam mentioned above, I also performed my own history taking and examination. Past medical history and review of system has been obtained by myself I reviewed all pertinent labs and studies Reviewed current medications I discussed and formulated of the assessment and plan mentioned above by Brittany Jeanette Please refer to the Summary mentioned below. General Appearance: not in acute distress Eyes: normal Sclerae, extraocular muscle intact ENT: hearing grossly normal Neck: supple Respiratory/Chest: normal air entry bilateral , no respiratory distress, no accessory muscle use, Cardiovascular: regular rate, rhythm, no murmur Abdomen: non tender, soft, no masses, but appears distended Extremities: no edema, fingers are stiff B/L Neurologic/Psychiatric: Awake alert oriented only to place and person moves all extremities sensation intact cranial nerves II-12 appear to be intact Skin: normal color, warm/dry, no rash, skin creases is missing in both hands 81 years old man with Met colon cancer currently on Xeloda (held for one week due to hyponatremia) Assessment nutritional hyponatremia (might need MRI brain to R/O Mets) cachectica metastatic colon cancer Plan calculated osmolarity is 262 (makes it hyponatremia with low osm) DD. includes low dietry solute intake,heart failure, liver cirrhosis, SIADH and adrenal insufficiency, TSH was 13 , synthroid was increased yesterday cortisol level was 20, no stigmata of liver or heart failure, that makes low dietry solute intake the most probable diagnosis supportive care Gentle IVF hydration encourage oral intake Continue home meds Belen Mondragon MD, [facility] hospitalist group Level of Care Telemetry Resuscitation Status FULL RESUSCITATION VTE Prophylaxis VTE Risk Assessment Done? Y/N: Yes Risk Level: Moderate Given or contraindicated: SCD's Social Service Consult None Apply
[2017-01-29 19:07] VITALS: BP 95/59; PULSE 85; TEMP 36.4; O2SAT 100; Ht 165.1 cm; Wt 45.9 kg
[2017-01-29] MEDS: SODIUM CHLORIDE 0.9% 1000ML 1,000 ML IV SCH (19:58)
[2017-01-29] MEDS ORDERED: IV FLUIDS COMPLETED PRN (20:00)
--- NOTE | 2017-01-29 20:46 | NUR ---
A: Report called to receiving Reyna MEEK. Pt to be moved to room 423. Patient's daughter, Radha, aware. All belongings with patient. Pt transported via wheelchair by [employer] and RN.
[2017-01-29] MEDS ORDERED: SIMVASTATIN 40 MG TAB PO SCH (21:00)
[2017-01-29] MEDS ORDERED: PANTOprazole SOD 40 MG TAB PO SCH (21:00)
[2017-01-29 21:32] VITALS: BP 93/63; PULSE 94; TEMP 36.6; O2SAT 100
[2017-01-29] MEDS: ASPIRIN 81 MG ECTAB PO SCH (21:35)
--- NOTE | 2017-01-29 21:36 | NUR ---
A: Patient arrived to room 423 at 2105. A/ox4. Breath sounds diminished on room air. Denies pain. VSS. Daughter is at bedside. Oriented to room and staff. Call winter and bedside table are within reach. Will continue to monitor.
--- NOTE | 2017-01-30 | NUR ---
OBS: Pt is A&OX4. Granddaughter at bedside. 1 assist out of bed. VSS. Lungs sounds are clear and diminished on R/A. Denies pain. Ostomy draining green liquid stool. NSS infusing at 100ml/hr. Hourly rounding maintained for safety. Will continue to monitor.
[2017-01-30 00:09] VITALS: BP 102/52; PULSE 81; TEMP 36.4; O2SAT 98
--- NOTE | 2017-01-30 04:00 | NUR ---
OBS: Pt is resting comfortably in bed. Granddaughter at bedside. NSS continues to infuse. Will continue to monitor.
[2017-01-30] MEDS: SODIUM CHLORIDE 0.9% 1000ML 1,000 ML IV SCH (05:59)
[2017-01-30 06:19] LABS: HEMATOCRIT 30.5 % (42-52); HEMOGLOBIN 10.1 g/dL (14.0-18.0); MEAN CELL VOLUME 90.8 fL (80-100); MEAN CORPUSCULAR HEMOGLOBIN 30.1 pg (25-34); MEAN CORPUSCULAR HGB CONC 33.1 g/dl (32-36); MEAN PLATELET VOLUME 9.1 fL (7.4-10.4); PLATELET COUNT 354 K/uL (130-400); RED CELL DISTRIBUTION WIDTH CV 22.6 % (11.5-14.5); WHITE BLOOD COUNT 3.44 K/uL (4.8-10.8)
[2017-01-30] MEDS ORDERED: LEVOTHYROXINE 100 MCG TAB PO SCH (06:30)
[2017-01-30 06:51] LABS: CALCIUM 7.7 mg/dl (8.5-10.1); CREATININE 0.71 mg/dl (0.60-1.40); POTASSIUM 3.4 mmol/L (3.5-5.1)
[2017-01-30 07:40] VITALS: BP 97/52; PULSE 70; TEMP 36.3; O2SAT 99
[2017-01-30] MEDS ORDERED: FERROUS SULFATE 325 MG TAB PO SCH (08:00)
[2017-01-30] MEDS ORDERED: MAGNESIUM OXIDE 400 MG TAB PO SCH (08:00)
[2017-01-30] MEDS ORDERED: TAMSULOSIN HCL 0.4 MG CAP PO SCH (08:00)
[2017-01-30] MEDS ORDERED: BOOST VANILLA OR BOOST GLUCOSE CONTROL CHOCOLATE PO SCH (08:00)
[2017-01-30] MEDS ORDERED: SODIUM CHLORIDE 1 GM TAB PO SCH (08:00)
--- NOTE | 2017-01-30 08:00 | NUR ---
OBS: Patient alert and oriented x4, ambulates in room/halls with one person assistance. Full assessment done, see EMR. No complaints at this time. Liquid green output from ostomy. NSS infusing at 100 cc/hr. Tolerating a regular diet well. VSS on RA. Call winter within reach, patient aware to ring for assistance. Family at bedside. Will continue to monitor.
[2017-01-30] MEDS: ASPIRIN 81 MG ECTAB PO SCH (08:49)
--- NOTE | 2017-01-30 09:42 | NUR ---
Pt screened for initiation of PO supplement. Please refer to linked assessment Addendum: 01/30/17 at [address] Amended: Links added.
[2017-01-30] MEDS ORDERED: POTASSIUM CHLORIDE 10 MEQ TABCR PO ONE (11:30)
--- NOTE | 2017-01-30 12:00 | NUR ---
OBS: Ostomy appliance changed. Potassium level 3.4, PO replacement. Seen by MD. Seen by Palliative care. IVF continues to infuse. Possible discharge later today. Call winter within reach, patient aware to ring for assistance. Will continue to monitor.
--- NOTE | 2017-01-30 12:37 | Palliative Care Consultation ---
Consultation Date of Consultation: Jan 30, 2017. Requesting Physician: Dr Alcaraz Attending Physician: Dr Alcaraz Reason for Consultation: Determine goals of care History of Present Illness Pt admitted on 01/29 for Na++ level of 125. Pt has been hospitalized 3 prior times this month for dehydration and/or hyponatremia. Pt was supposed to be on Na++ supplement but did not have script for them and was not taking it. he had no sx of hyponatremia and was actually feeling better. Pt is an 81 yo male with a PMH of Colon cancer diagnosed in 2016 on routine colonoscopy ,who underwent a colon resection with ostomy in Sep for SBO due to malignant mass. Pt has been receiving chemo . Pt reports loss of taste from chemo meds - chemo has been held and his sense of taste has returned. He is anxious to eat more now that he can taste his food. he has been trying to regulate the consistency of his ostomy output with certain foods - this has been a bit of a burden. Will need to check with GI , if pt is able to take a fiber supplement to help with watery ostomy output. Discussed several foods that are high in sodium - including cheese puffs, that he would enjoy eating. Pt is to have repeat scans in mid Feb to determine effectiveness of chemo. Pt would like to continue chemo if it is keeping disease "at bay". Discussed with family , that if chemo is no longer an option , he can see me in Palliative clinic to make plans for further care. Gave daughter my info to set up appt. when and if needed. Pt also has pain, swelling and skin peeling in both hands from chemo - he has been using Bag Ovid at home with good results. Met with pt and daughters X 2, sons X 2 and grandson present. Past Medical/Surgical History Medical History: Colon ca, CAD, HLD, kidney/bladder stones, h/o DC, and vertigo Surgical History: Appendectomy, colon resection with ostomy, hip replacement, R arm fx repair, colonoscopy Family History Cancer, DM heart disease, renal disease and renal stones Social History Smoking Status: Former Smoker History of Alcohol Use: No Drug Use: none Marital Status: Housing Status: lives with significant other Occupation Status: retired Has 6 children Review of Systems Constitutional: + weight loss, + weakness, No fever, No chills Eyes: No worsening of vision ENT: + problem reported (mild [place]) Respiratory: No cough Cardiac: No chest pain Abdomen: + problem reported (ostomy output more watery than usual), No pain Male : No dysuria Neurologic: + weakness Psychiatric: No anxiety Heme: No abnormal bleeding/bruising Skin: + new/changing skin lesions (both hands with cracked, peeling skin and swelling) Allergies Coded Allergies: Clarithromycin (Verified Allergy, Severe, "MAJOR RXN" ?, 01/29/17) Penicillins (Verified Allergy, Severe, "MAJOR RXN" ?, 01/29/17) Sulfa Antibiotics (Verified Allergy, Severe, "SULFA DRUGS": "MAJOR RXN"?, 01/29/17) Cephalosporins (Verified Allergy, Unknown, ?, 01/29/17) Diltiazem (Verified Allergy, Unknown, FLUSHING, 01/29/17) Morphine (Verified Allergy, Unknown, N/V, 01/29/17) Streptokinase (Verified Allergy, Unknown, ?, 01/29/17) Sulfonylureas (Verified Allergy, Unknown, RASH, 01/29/17) Codeine (Verified Adverse Reaction, Mild, NAUSEA / VOMITING, 01/29/17) Medications Current Inpatient Medications Medications (Trade) Dose Ordered Sig/Lenka Route Start Time Stop Time Status Last Admin Dose Admin Acetaminophen (Tylenol Tab) 650 mg Q4H PRN PO 01/29/17 18:00 02/28/17 17:59 Aspirin (Ecotrin Tab) 81 mg BID PO 01/29/17 21:00 02/28/17 20:59 01/30/17 08:49 81 MG Ferrous Sulfate (Feosol Tab) 325 mg BIDM PO 01/30/17 08:00 03/01/17 07:59 01/30/17 08:49 325 MG Levothyroxine Sodium (Synthroid Tab) 100 mcg DAILYBB PO 01/30/17 06:30 03/01/17 06:29 01/30/17 05:59 100 MCG Magnesium Oxide (Mag-Ox Tab) 400 mg DAILY PO 01/30/17 08:00 03/01/17 08:59 01/30/17 08:50 400 MG Nitroglycerin (Nitrostat Tab) 0.4 mg UD PRN UT 01/29/17 18:45 02/28/17 18:44 Ondansetron HCl (Zofran Tab) 8 mg Q8 PRN PO 01/29/17 18:45 02/28/17 18:44 Simvastatin (Zocor Tab) 40 mg QPM PO 01/29/17 21:00 02/28/17 20:59 01/29/17 21:34 40 MG Tamsulosin HCl (Flomax Cap) 0.4 mg DAILY PO 01/30/17 08:00 03/01/17 08:59 01/30/17 08:49 0.4 MG Pantoprazole Sodium (Protonix Tab) 40 mg QPM PO 01/29/17 21:00 02/28/17 20:59 01/29/17 21:35 40 MG Sodium Chloride (Sodium Chloride Tab) 1 gm DAILY PO 01/30/17 08:00 03/01/17 08:59 01/30/17 08:50 1 GM Sodium Chloride 1,000 ml @ 100 mls/hr Q10H IV 01/29/17 19:00 02/28/17 18:59 01/30/17 05:59 100 MLS/HR Miscellaneous (Iv Fluids Completed) 1 ea PRN PRN N/A 01/29/17 20:00 01/29/18 19:59 Enteral Nutritional Formula (Boost Plus Vanilla) 1 can BID PO 01/30/17 20:00 03/01/17 19:59 Physical Exam Date Time Temp Pulse Resp B/P (MAP) Pulse Ox O2 Delivery O2 Flow Rate FiO2 01/30/17 07:40 36.3 70 18 97/52 (67) 99 Room Air 01/30/17 00:09 36.4 81 18 102/52 (69) 98 Room Air 01/30/17 00:00 Room Air 01/29/17 21:32 36.6 94 16 93/63 (73) 100 Room Air 01/29/17 19:07 36.4 85 18 95/59 100 Room Air 01/29/17 17:00 36.4 85 18 95/59 (71) 100 Room Air General Appearance: no apparent distress Eyes: EOMI ENT: + pertinent finding (mild [place]) Neck: supple Respiratory: lungs clear Cardiovascular: regular rate, rhythm Abdomen: non tender, + pertinent finding (ostomy pink, watery green/brown material in bag) Musculoskeletal: normal tone, pertinent finding Neurologic/Psychiatric: alert, normal mood/affect Skin: + pertinent finding (both hands with thick peeling skin, decreased ROM due to tenderness) Laboratory Results Last 24 Hours Test 01/30/17 05:32 01/30/17 10:47 White Blood Count 3.44 K/uL Red Blood Count 3.36 M/uL Hemoglobin 10.1 g/dL Hematocrit 30.5 % Mean Corpuscular Volume 90.8 fL Mean Corpuscular Hemoglobin 30.1 pg Mean Corpuscular Hemoglobin Concent 33.1 g/dl RDW Standard Deviation 71.0 fL RDW Coefficient of Variation 22.6 % Platelet Count 354 K/uL Mean Platelet Volume 9.1 fL Sodium Level 127 mmol/L Potassium Level 3.4 mmol/L Chloride Level 97 mmol/L Carbon Dioxide Level 22 mmol/L Anion Gap 8.0 mmol/L Blood Urea Nitrogen 10 mg/dl Creatinine 0.71 mg/dl Est Creatinine Clear Calc Drug Dose 54.0 ml/min Estimated GFR () 101.3 Estimated GFR (Non- 87.4 BUN/Creatinine Ratio 14.2 Random Glucose 93 mg/dl Calcium Level 7.7 mg/dl Assessment & Plan Palliative Performance Scale: 50 % (1) Colon cancer Status: Chronic Assessment & Plan: Discussed options depending on his response to chemo (2) Anemia Status: Acute Assessment & Plan: On iron tabs, pt likes liver - discussed increasing intake of liver (3) Hyponatremia Status: Acute Assessment & Plan: Undergoing work up to r/o other causes of hyponatremia besides low dietary intake and/or increased ostomy output Encouraged pt to continue with chemo if effective, if not and Hem/Onc would recommend stopping chemo at some point - to come see me in Palliative clinic as an outpt to discuss options for further care. Total time 75 min with > 50 % of time spent discussing treatment options and goals of care with pt and family at bedside
[2017-01-30 14:33] VITALS: BP 116/71; PULSE 83; TEMP 36.4; O2SAT 99
--- NOTE | 2017-01-30 15:24 | NUR ---
Patient identified as a readmission within 30 days. 81 year old male directly admitted with hyponatremia who lives with his in their one floor home in [place]. Patient's daughter, Ariana, is POA. The children are very supportive. Patient has a friend/nurse who helps change is colostomy bag. Patient plans on returning home. No needs identified at this time.
--- NOTE | 2017-01-30 15:38 | Discharge Instructions ---
Discharge Instructions Date of Service Jan 30, 2017. Admission Reason for Admission: Hyponatremia Discharge Discharge Diagnosis / Problem: Hyponatremia Discharge Goals Goal(s): Decrease discomfort, Improve function Activity Recommendations Activity Limitations: as noted below . Instructions / Follow-Up Instructions / Follow-Up Patient has stage 4 colon cancer which appears to be improving with his chemotherapy, but is on hold as patient is not tolerating the chemotherapy. This though is not curative and is mainly palliative as per his Oncologist. However, it seems patient was not aware of the termite helper prognosis. Having said this, patient is not sure if he is willing to continue with chemotherapy and will wait for his PET scan in February and appointment with his oncologist to decide. Patient has noticed that his taste has improved while being off the chemotherapy. Patient also discussed with palliative care, and was given information for possible outpatient appointment. Discussed case with nephrology, patient does not appear to be dehydrated as his creatinine is normal. Likely SIADH. Will place outpatient consult. Patient will be discharged as he is not having any symptoms. Will continue with foods that have high salt intake. will also ad benefiber supplements to help decrease output of ileostomy. Current Hospital Diet Patient's current hospital diet: Regular Diet Discharge Diet Recommended Diet: Regular Diet Pending Studies Studies pending at discharge: no Laboratory Results Hemoglobin A1c Test 11/30/16 05:04 Range/Units Estimated Average Glucose 126 mg/dl Hemoglobin A1c 6.0 H 4.5-5.6 % Lipid Panel Test 01/05/17 10:32 Range/Units Triglycerides Level 87 0-150 mg/dl Cholesterol Level 136 0-200 mg/dl HDL Cholesterol 65 mg/dl Cholesterol/HDL Ratio 2.1 LDL Cholesterol, Calculated 54 mg/dl Medical Emergencies . Who to Call and When: Medical Emergencies: If at any time you feel your situation is an emergency, please call 911 immediately. . Non-Emergent Contact Non-Emergency issues call your: Primary Care Provider Call Non-Emergent contact if: your pain is worsening, you have any medication questions . . "Provider Documentation" section prepared by Randell Alcaraz. . VTE Core Measure Inpt VTE Proph given/why not?: SCD's
--- NOTE | 2017-01-30 15:42 | NUR ---
urogynaecologist [facility]: Follow up appt info added to DC instructions - "Please, follow up at [facility] Nephrology Office with Dr. Álvaro Newell on ThursdayFebruary 06 at 9:15 am. *This office is located in [address] of [facility] - big building next to this [facility]. If you need to reschedule or cancel this appointment you can call the office at [phone]. Please, follow up with Dr. Riojas on ThursdayFebruary 10 at 2:30 pm. *If you need to change or cancel this appointment you can call the office at [phone]."
--- NOTE | 2017-01-30 16:04 | NUR ---
CWOCN: RECEIVED CALL FROM PRIMARY NURSE, RE: OSTOMY LEAKING. HAS LOOP ILEOSTOMY RLQ, CLOSE TO HIP BONES. STOOL IS LIQUID. BELIEVE LIQUID STOOL IS UNDERMINING WAFER. SUGGESTED USING UROSTOMY POUCH TO BETTER KEEP STOOL AWAY FROM WAFER. PATIENT AGREEABLE. HAS OPEN WOUND OVER COCCYX, PRESENTS STAGE II PRESSURE ULCER. NO ERYTHEMA NOTED. WOUND BED PALE PINK. ALLOWS STOMA POWDER AND ALOE VESTA #3
[2017-01-30 16:24] VITALS: BP 116/71; PULSE 83; TEMP 36.4; O2SAT 99
--- NOTE | 2017-01-30 16:45 | NUR ---
A: MD order to discharge patient. Discharge instructions given to patient, all questions answered. Saline lock removed with catheter intact. WOCN changed ileostomy bag prior to discharge. Patient discharged to home with all belongings and discharge instructions. Patient aware of all follow up appointments.
[2017-01-30] MEDS ORDERED: BOOST PLUS VANILLA OR BOOST GLUCOSE CONTROL STRAWBERRY PO SCH (20:00)
[2017-02-05] MEDS ORDERED: ASPI-320 PO (11:55)
[2017-02-05] MEDS ORDERED: NUTR-7 PO (11:55)
[2017-02-05] MEDS ORDERED: [UNRECOGNIZED DRUG - CODE] PO (11:55)
--- NOTE | 2017-02-08 12:42 | Discharge Summary ---
Discharge Summary Date of Service Jan 30, 2017. 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 Problems/Secondary Diagnoses: Stage 4 colon cancer Immunizations: Have You Had Influenza Vaccine: Yes Influenza Vaccine Date: Nov 03, 2012 History of Tetanus Vaccine?: UTD History of Pneumococcal: Yes History of Hepatitis B Vaccine: Unknown Medication Reconciliation Continued Medications: Ferrous Sulfate (Ferrous Sulfate) 325 Mg Tab 325 MG PO BIDM for 30 Days, #60 TAB Take to restore blood count Magnesium Oxide (Mag-Ox) 400 Mg Tab 400 MG PO DAILY, TAB Nitroglycerin (Nitrostat) 0.4 Mg Tab 0.4 MG UT PRN Omeprazole (Prilosec) 20 Mg Capcr 20 MG PO QPM, CAP Ondansetron Hcl (Zofran) 8 Mg Tab 8 MG PO Q8 PRN for Nausea, TAB MUST TAKE BEFORE TAKING CHEMO MED Simvastatin (Zocor) 40 Mg Tab 40 MG PO QPM Tamsulosin Hcl (Flomax) 0.4 Mg Cap 0.4 MG PO NOON, CAP Discharge Exam Review of Systems: Constitutional: No fever, No chills Respiratory: No cough, No sputum Cardiovascular: No chest pain, No orthopnea Abdomen: No pain Neurologic: No memory loss, No paralysis Endocrine: + fatigue, No excessive thirst Hematologic / Lymphatic: No abnormal bleeding/bruising, No clotting problems Integumentary: No rash Physical Exam: General Appearance: WD/WN, no apparent distress, + thin Neck: supple, no adenopathy Respiratory/Chest: chest non-tender, lungs clear, normal breath sounds Cardiovascular: regular rate, rhythm Abdomen / GI: normal bowel sounds, non tender, soft, + pertinent finding ( ileostomy bag) Extremities: normal inspection Skin: normal color Lymphatic: no adenopathy Hospital Course 81 yo male who has STAGE 4 colon cancer was brought in by family due to worsening fatigue and high ileostomy output. Patient has stage 4 colon cancer which appears to be improving with his chemotherapy, but is on hold as patient is not tolerating the chemotherapy. This though is not curative and is mainly palliative as per his Oncologist. However, it seems patient was not aware of the jail prognosis. Having said this, patient is not sure if he is willing to continue with chemotherapy and will wait for his PET scan in February and appointment with his oncologist to decide. Patient has noticed that his taste has improved while being off the chemotherapy. Patient also discussed with palliative care, and was given information for possible outpatient appointment. Discussed case with nephrology, patient does not appear to be dehydrated as his creatinine is normal. Likely SIADH. Will place outpatient consult. Patient will be discharged as he is not having any symptoms. Will continue with foods that have high salt intake. will also add benefiber supplements to help decrease output of ileostomy. Discussed with family. Total Time Spent: Greater than 30 minutes This includes examination of the patient, discharge planning, medication reconciliation, and communication with other providers. Discharge Instructions Please refer to the electronic Patient Visit Report (Discharge Instructions) for additional information. Follow-Up as per discharge instructions
[2017-04-14] MEDS ORDERED: TAMS0.4C38 PO (12:20)
[2017-04-14] MEDS ORDERED: ONDA-170 PO (20:03)
[2017-06-18] MEDS ORDERED: ASPI81TA28 PO (17:03)
[2017-06-27] MEDS ORDERED: OXYC-57 PO (08:08)
[2017-07-06] MEDS ORDERED: NTRGSL/4 UT (15:02)
[2017-07-06] MEDS ORDERED: CAPE1TAB3 PO (16:27)
[2017-07-06] MEDS ORDERED: DRON2.5C10 PO (16:27)
[2017-07-06] MEDS ORDERED: LEVO112T4 PO (16:30)
[2017-07-06] MEDS ORDERED: NUTR-7 PO (16:30)
[2017-07-06] MEDS ORDERED: FERR1TAB23 PO (17:08)
[2017-07-06] MEDS ORDERED: CZR50 PO (17:08)
[2017-07-06] MEDS ORDERED: ULT50 PO (17:10)
[2017-07-06] MEDS ORDERED: ACET-1256 PO (17:10)
[2017-07-06] MEDS ORDERED: FLM4 PO (18:50)
[2017-07-06] MEDS ORDERED: ONDA-63 PO (18:50)
[2017-07-06] MEDS ORDERED: ZCR40 PO (18:50)
[2017-07-06] MEDS ORDERED: OMEP20CA9 PO (18:50)
[2017-07-06] MEDS ORDERED: MAGN400T5 PO (18:50)
[2017-07-09] MEDS ORDERED: ERGO500011 PO (11:59)
[2017-07-09] MEDS ORDERED: VLTG EXT (11:59)
[2017-07-09] MEDS ORDERED: OXYC-57 PO (11:59)
[2017-07-09] MEDS ORDERED: SYN125 PO (11:59)
[2017-07-09] MEDS ORDERED: CYTM5 PO (11:59)
[2017-07-09] MEDS ORDERED: FLM4 PO (11:59)
[2017-07-21] MEDS ORDERED: TRAM-10 PO (16:39)
[2017-07-21] MEDS ORDERED: ASPI-461 PO (16:39)
[2017-07-21] MEDS ORDERED: VLTG EXT (16:39)
[2017-07-21] MEDS ORDERED: FURO-85 PO (16:41)
[2017-07-21] MEDS ORDERED: POTA10TA PO (16:41)
[2017-07-21] MEDS ORDERED: MAGN400T6 PO (16:43)
[2017-07-24] MEDS ORDERED: FERR1TAB23 PO (15:11)
[2017-07-24] MEDS ORDERED: PANT40TA PO (15:11)
[2017-07-24] MEDS ORDERED: LEVO1TAB35 PO (15:33)
[2017-07-31] MEDS ORDERED: ONDA8TAB62 SL (14:45)
[2017-07-31] MEDS ORDERED: TRAM-10 PO (14:45)
[2017-07-31] MEDS ORDERED: METO1TAB54 PO (14:45)
[2017-07-31] MEDS ORDERED: LORA-741 PO (14:45)
[2017-07-31] MEDS ORDERED: RXNS10 PO (14:47)
[2017-07-31] MEDS ORDERED: ERYOPO OPB (14:58)
[2017-07-31] MEDS ORDERED: SERT25TA PO (15:00)
== END 2017-01-30 16:45 | disposition home or self-care (01) ==
LOC: C.MED 17:00 → INTOOBSV 17:00 → ENRESERV 20:01 → C.4E 21:06
PROVIDERS: ADMIT Internal Medicine; ATTEND Internal Medicine
DX: E87.1 Hypo-osmolality and hyponatremia (principal); C18.9 Malignant neoplasm of colon, unspecified; R63.0 Anorexia; I25.10 Atherosclerotic heart disease of native coronary artery without angina pectoris; D64.9 Anemia, unspecified; E03.9 Hypothyroidism, unspecified; L89.152 Pressure ulcer of sacral region, stage 2; N40.0 Benign prostatic hyperplasia without lower urinary tract symptoms; E78.00 Pure hypercholesterolemia, unspecified; I10 Essential (primary) hypertension; I25.2 Old myocardial infarction; Z83.3 Family history of diabetes mellitus; Z82.49 Family history of ischemic heart disease and other diseases of the circulatory system; Z84.1 Family history of disorders of kidney and ureter; Z87.891 Personal history of nicotine dependence; Z88.0 Allergy status to penicillin; Z88.2 Allergy status to sulfonamides; Z79.82 Long term (current) use of aspirin; Z93.8 Other artificial opening status; Z90.89 Acquired absence of other organs; Z96.649 Presence of unspecified artificial hip joint; Z87.442 Personal history of urinary calculi; E86.0 Dehydration

== ENCOUNTER 2017-02-02 13:29 | Inpatient (IN) | payer OTHER ==
[~2017-02-02] VITALS: Ht 165.1 cm; Wt 44.1 kg
[~2017-02-02 13:29] MED LIST changes: +MAGN400T6 PO; +NTRGSL/4 UT; +ONDA8TAB6 PO; +PRLSR20 PO; +SIMV40TA2 PO; +TAMS0.4C38 PO
[2017-02-02] MEDS ORDERED: SODIUM CHLORIDE 0.9% 250ML 250 ML IV STA ×2 (14:14→16:26)
--- NOTE | 2017-02-02 14:46 | EMERGENCY ROOM VISIT NOTE ---
History Report prepared by Vance: Rishabh Mendez Under the Supervision of: Dr. Brit Toney M.D. First contact with patient: 14:07 Chief Complaint: DEHYDRATION Stated Complaint: DEHYDRATED Nursing Triage Summary: daughter states he ws recentely admitted for dehydration a couple days ago. daughter states he has a illeostomy and states "I think Hes dehydrated again." daughter also c/o increased generalized weakness History of Present Illness The patient is an 81 year old male who presents to the Emergency Room with complaints of constant weakness beginning a few days ago. The patient's daughter states the patient has been fighting dehydration for the past few weeks. She reports the patient has been experiencing a raspy voice, low energy, and a decreased output through his ostomy bag. The daughter notes the patient was discharged from the hospital 3 days ago, and his sodium level was 127. She states after discharge, the patient was back to normal, and he was given sodium pills and told to eat food high is sodium. The daughter reports since his discharge, he has lost his appetite, decreased the output of his ostomy bag, become weak, and his voice is back to being raspy. She notes the patient tries to drink water, but he fills up very quickly. The daughter states he has also been try Benefiber to help with his stool. She reports the patient typically perks up after receiving a few bags of IV fluid and potassium. The daughter notes the patient has been off chemotherapy for the past two weeks. The patient denies falling, hitting his head, taking blood thinners, fevers, having a catheter, and having a port. Review of EMR shows the patient was admitted on from the 10-19, , and . It states the patient had lab work on the and received a direct admit. Source of History: patient, family (daughter) Onset: few days ago Position: other (global) Quality: other (weakness) Timing: constant Modifying Factors (Relieving): other (IV fluid and potassium) Associated Symptoms: No fevers Note: Associated symptoms: decreased appetite, tiredness, decreased ostomy output, raspy voice Denies: falls, hitting head Review of Systems See HPI for pertinent positives & negatives. A total of 10 systems reviewed and were otherwise negative. Past Medical & Surgical Medical Problems: (1) Colon cancer (2) Coronary artery disease (3) Hip fracture (4) Hypercholesteremia (5) Hypertension (6) Kidney stones (7) Myocardial infarct (8) Pleural effusion (9) SBO (small bowel obstruction) (10) Vertigo Family History Cancer Diabetes mellitus FHx: heart disease FHx: kidney disease/stones Social History Smoking Status: Never Smoker Alcohol Use: none Drug Use: none Marital Status: Housing Status: lives with significant other Occupation Status: retired Current/Historical Medications Scheduled Aspirin Buffered (Marvin Carb-Mag (Tri-Buffered Aspirin), 81 MG PO BID Ferrous Sulfate (Ferrous Sulfate), 325 MG PO BIDM Levothyroxine Sodium (Synthroid), 75 MG PO QAM Magnesium Oxide (Mag-Ox), 400 MG PO DAILY Nitroglycerin (Nitrostat), 0.4 MG UT PRN Nutritional Supplements (Boost), 1 CAN PO DAILY Omeprazole (Prilosec), 20 MG PO QPM Simvastatin (Zocor), 40 MG PO QPM Tamsulosin Hcl (Flomax), 0.4 MG PO NOON Scheduled PRN Loperamide Hcl (Loperamide Hcl), 2 MG PO Q6H PRN for Diarrhea Ondansetron Hcl (Zofran), 8 MG PO Q8 PRN for Nausea Allergies Coded Allergies: Clarithromycin (Verified Allergy, Severe, "MAJOR RXN" ?, 02/02/17) Penicillins (Verified Allergy, Severe, "MAJOR RXN" ?, 02/02/17) Sulfa Antibiotics (Verified Allergy, Severe, "SULFA DRUGS": "MAJOR RXN"?, 02/02/17) Cephalosporins (Verified Allergy, Unknown, ?, 02/02/17) Diltiazem (Verified Allergy, Unknown, FLUSHING, 02/02/17) Morphine (Verified Allergy, Unknown, N/V, 02/02/17) Streptokinase (Verified Allergy, Unknown, ?, 02/02/17) Sulfonylureas (Verified Allergy, Unknown, RASH, 02/02/17) Codeine (Verified Adverse Reaction, Mild, NAUSEA / VOMITING, 02/02/17) Physical Exam Vital Signs Date Time Temp Pulse Resp B/P (MAP) Pulse Ox O2 Delivery O2 Flow Rate FiO2 02/02/17 16:25 22 96/64 02/02/17 13:49 36.3 100 22 82/58 96 Room Air Physical Exam Vital signs reviewed. General: Chronically ill-appearing 81 year old male, in no significant distress. HEENT: No scleral icterus, PERRLA, neck supple. Atraumatic. Dry mucous membranes. Cardiovascular: Regular rate and rhythm, no extra sounds. Pulmonary: Clear to auscultation bilaterally, normal work of breathing. Abdomen: Soft, nontender, nondistended, positive bowel sounds. Ileostomy to the RLQ draining a liquid green stool. Musculoskeletal: Atraumatic, no peripheral edema. Neurologic: Patient awake alert and oriented x 3 Skin: Warm, dry, no rash Medical Decision & Procedures Laboratory Results 02/02/17 14:40 Red Blood Count 4.42, Mean Corpuscular Volume 91.2, Mean Corpuscular Hemoglobin 31.0, Mean Corpuscular Hemoglobin Concent 34.0, Mean Platelet Volume 9.3, Neutrophils (%) (Auto) 62.0, Lymphocytes (%) (Auto) 22.3, Monocytes (%) (Auto) 15.1, Eosinophils (%) (Auto) 0.2, Basophils (%) (Auto) 0.0, Neutrophils # (Auto ) 3.19, Lymphocytes # (Auto) 1.15, Monocytes # (Auto) 0.78, Eosinophils # (Auto ) 0.01, Basophils # (Auto) 0.00 Test 02/02/17 14:40 White Blood Count 5.15 K/uL (4.8-10.8) Red Blood Count 4.42 M/uL (4.7-6.1) Hemoglobin 13.7 g/dL (14.0-18.0) Hematocrit 40.3 % (42-52) Mean Corpuscular Volume 91.2 fL (80-100) Mean Corpuscular Hemoglobin 31.0 pg (25-34) Mean Corpuscular Hemoglobin Concent 34.0 g/dl (32-36) Platelet Count 390 K/uL (130-400) Mean Platelet Volume 9.3 fL (7.4-10.4) Neutrophils (%) (Auto) 62.0 % Lymphocytes (%) (Auto) 22.3 % Monocytes (%) (Auto) 15.1 % Eosinophils (%) (Auto) 0.2 % Basophils (%) (Auto) 0.0 % Neutrophils # (Auto) 3.19 K/uL (1.4-6.5) Lymphocytes # (Auto) 1.15 K/uL (1.2-3.4) Monocytes # (Auto) 0.78 K/uL (0.11-0.59) Eosinophils # (Auto) 0.01 K/uL (0-0.5) Basophils # (Auto) 0.00 K/uL (0-0.2) RDW Standard Deviation 72.8 fL (36.4-46.3) RDW Coefficient of Variation 22.8 % (11.5-14.5) Immature Granulocyte % (Auto) 0.4 % Immature Granulocyte # (Auto) 0.02 K/uL (0.00-0.02) Anisocytosis PRESENT Activated Partial Thromboplast Time 25.5 SECONDS (21.0-31.0) Partial Thromboplastin Ratio 1.0 Magnesium Level 1.8 mg/dl (1.8-2.4) Total Bilirubin 0.4 mg/dl (0.2-1) Direct Bilirubin 0.2 mg/dl (0-0.2) Aspartate Amino Transf (AST/SGOT) 22 U/L (15-37) Alanine Aminotransferase (ALT/SGPT) 24 U/L (12-78) Alkaline Phosphatase 115 U/L (45-117) Total Creatine Kinase 42 U/L (39-308) Creatine Kinase MB 3.8 ng/ml (0.5-3.6) Creatine Kinase MB Ratio 9.0 (0-3.0) Total Protein 6.7 gm/dl (6.4-8.2) Albumin 2.8 gm/dl (3.4-5.0) Laboratory results per my review. Medications Administered Medications (Trade) Dose Ordered Sig/Lenka Route Start Time Stop Time Status Last Admin Dose Admin Sodium Chloride 250 ml @ 999 mls/hr Q16M STAT IV 02/02/17 14:14 02/02/17 14:29 DC 02/02/17 14:20 999 MLS/HR Sodium Chloride 250 ml @ 999 mls/hr Q16M STAT IV 02/02/17 16:26 02/02/17 16:41 DC 02/02/17 16:48 999 MLS/HR ECG Indication: weakness Rate (beats per minute): 88 Rhythm: normal sinus Findings: RBBB, left axis deviation, other (LVH, possible previous anterolateral and inferior infarcts) ED Course 1411: Past medical records reviewed. The patient was evaluated in room C11B. A complete history and physical examination was performed. 1414: Ordered Sodium Chloride 250 ml @ 999 mls/hr IV 1538: I discussed the patient's case with Dr. Darwin Mondragon [facility] Hospitalist. The patient will be evaluated for further management and care. 1626: Upon reevaluation, the patient is resting comfortably. I discussed laboratory and radiographic results with him. He verbalized agreement of the treatment plan. The patient will be evaluated for further management and care. Ordered Sodium Chloride 250 ml @ 999 mls/hr IV Medical Decision Differential diagnosis: Etiologies such as metabolic, infection, hypo/hyperglycemia, electrolyte abnormalities, cardiac sources, intracerebral event, toxicologic, neurologic, as well as others were entertained. This patient was evaluated and appeared to be in no significant distress. IV access was obtained and laboratory work was drawn. Patient was placed on the business solution analyst and found to be in a normal sinus rhythm. EKG reveals right bundle branch block with a left axis deviation. Laboratory work reveals a persistent hyponatremia. Review of previous records indicate this sodium of 126 has been persistent. The patient was placed on sodium tablets on his most recent hospitalization. Due to his hypotension on arrival to the emergency department he was given 2 separate 250 mL boluses of normal saline solution. Patient's blood pressure did improve. The hospitalist Dr. Mitch Mondragon evaluated the patient in the emergency department on consultation. He has decided to keep the patient for further management. Patient family are aware of the plan and agree. Medication Reconcilliation Current Medication List: was personally reviewed by me Blood Pressure Screening Patient's blood pressure: Low blood pressure Monitored by hospitalist. Consults Time Called: 1537 Consulting Physician: Dr. Darwin Mondragon [facility] Hospitalist Returned Call: 1538 I discussed the patient's case with Dr. Darwin Mondragon [facility] Hospitalist. The patient will be evaluated for further management and care. Impression Primary Impression: Generalized weakness Additional Impression: Hyponatremia Scribe Attestation The scribe's documentation has been prepared under my direction and personally reviewed by me in its entirety. I confirm that the note above accurately reflects all work, treatment, procedures, and medical decision making performed by me. Departure Information Dispostion Being Evaluated By Hospitalist Referrals Sonido Riojas M.D. (PCP) Patient Instructions My [facility] Problem Qualifiers
[2017-02-02 14:49] LABS: EOS % 0.2 %; HEMATOCRIT 40.3 % (42-52); IG% 0.4 %; LYMPH % 22.3 %; LYMPH ABS # 1.15 K/uL (1.2-3.4); MEAN CELL VOLUME 91.2 fL (80-100); MEAN PLATELET VOLUME 9.3 fL (7.4-10.4); MONO % 15.1 %; PLATELET COUNT 390 K/uL (130-400); RED BLOOD COUNT 4.42 M/uL (4.7-6.1); WHITE BLOOD COUNT 5.15 K/uL (4.8-10.8)
[2017-02-02 15:08] LABS: ALT/SGPT 24 U/L (12-78); AST/SGOT 22 U/L (15-37); BLOOD UREA NITROGEN 16 mg/dl (7-18); BUN/CREATININE RATIO 12.5 (10-20); CALCIUM 8.6 mg/dl (8.5-10.1); CARBON DIOXIDE 29 mmol/L (21-32); CHLORIDE 90 mmol/L (98-107); CREATININE 1.29 mg/dl (0.60-1.40); GLUCOSE 207 mg/dl (70-99); MAGNESIUM 1.8 mg/dl (1.8-2.4); POTASSIUM 3.9 mmol/L (3.5-5.1); SODIUM 126 mmol/L (136-145)
[2017-02-02 15:09] LABS: ANISOCYTOSIS PRESENT; COMPLETE YES
[2017-02-02 15:12] LABS: ALKALINE PHOSPHATASE 115 U/L (45-117)
[2017-02-02] MEDS ORDERED: ONDANSETRON INJ 2 MG/ML 2 ML VIAL IV PRN (16:45)
[2017-02-02] MEDS ORDERED: MAGNESIUM HYDROXIDE SUSP 30 ML UDC PO PRN (16:45)
[2017-02-02] MEDS ORDERED: LOPERAMIDE HCL 2 MG CAP PO PRN (16:45)
[2017-02-02] MEDS ORDERED: ACETAMINOPHEN 325 MG TAB PO PRN (16:45)
[2017-02-02] MEDS ORDERED: ALUMINUM/MAGNESIUM/SIMETH (MAALOX MAX) 30 ML UDC PO PRN (16:45)
[2017-02-02] MEDS ORDERED: NITROGLYCERIN 0.4 MG SL PER TAB CHARGE UT SCH (16:45)
[2017-02-02] MEDS ORDERED: POLYETHYLENE (MIRALAX) 17 GM PACK PO PRN (16:45)
[2017-02-02] MEDS ORDERED: ZOLPIDEM TARTRATE 5 MG TAB PO PRN (16:45)
[2017-02-02 17:44] VITALS: BP 98/56; PULSE 89; TEMP 36.4; O2SAT 100
[2017-02-02 17:45] VITALS: O2SAT 100
--- NOTE | 2017-02-02 17:45 | History and Physical ---
History & Physical Date & Time of Service: Feb 02, 2017 at 17:03 Chief Complaint: Dehydrated Primary Care Physician: Sonido Riojas M.D. History of Present Illness Source: patient, family, clinic records Mr. English was readmitted and discharged from the hospital twice within the last 2 weeks. He has been treated for hyponatremia. Supposed to be on salt tablets at home. Conservative management failed to control his fatigue and weakness symptoms. He has history of recurrent colon cancer, started Xeloda ( chemo) which is currently on hold due to sore eyes, weakness and hyponatremia. Has an increased output in his iliostomy which improved with fiber intake and they are more formed stools. Today he continues to have significant weakness. Decrease oral intake. Decreased appetite. He was supposed to see Dr. Newell in his office in 3 days. Family would like him to be consulted on the case. Patient will be admitted for hyponatremia workup, fluid resuscitation and supportive care Past Medical/Surgical History Medical Problems: (1) Colon cancer Status: Chronic (2) Coronary artery disease Status: Chronic (3) Hypercholesteremia Status: Chronic (4) Hypertension Status: Chronic (5) Kidney stones Status: Chronic (6) Myocardial infarct Status: Resolved (7) Vertigo Status: Chronic Family History Cancer Diabetes mellitus FHx: heart disease FHx: kidney disease/stones Social History Smoking Status: Never Smoker Drug Use: none Marital Status: Housing status: lives with significant other Occupational Status: retired Immunizations History of Influenza Vaccine: Yes Influenza Vaccine Date: Nov 03, 2012 History of Tetanus Vaccine?: UTD History of Pneumococcal: Yes History of Hepatitis B Vaccine: Unknown Multi-Drug Resistant Organisms History of MDRO: No Allergies Coded Allergies: Clarithromycin (Verified Allergy, Severe, "MAJOR RXN" ?, 02/02/17) Penicillins (Verified Allergy, Severe, "MAJOR RXN" ?, 02/02/17) Sulfa Antibiotics (Verified Allergy, Severe, "SULFA DRUGS": "MAJOR RXN"?, 02/02/17) Cephalosporins (Verified Allergy, Unknown, ?, 02/02/17) Diltiazem (Verified Allergy, Unknown, FLUSHING, 02/02/17) Morphine (Verified Allergy, Unknown, N/V, 02/02/17) Streptokinase (Verified Allergy, Unknown, ?, 02/02/17) Sulfonylureas (Verified Allergy, Unknown, RASH, 02/02/17) Codeine (Verified Adverse Reaction, Mild, NAUSEA / VOMITING, 02/02/17) Home Medications Scheduled Aspirin Buffered (Marvin Carb-Mag (Tri-Buffered Aspirin), 81 MG PO BID Ferrous Sulfate (Ferrous Sulfate), 325 MG PO BIDM Levothyroxine Sodium (Synthroid), 75 MG PO QAM Magnesium Oxide (Mag-Ox), 400 MG PO DAILY Nitroglycerin (Nitrostat), 0.4 MG UT PRN Nutritional Supplements (Boost), 1 CAN PO DAILY Omeprazole (Prilosec), 20 MG PO QPM Simvastatin (Zocor), 40 MG PO QPM Tamsulosin Hcl (Flomax), 0.4 MG PO NOON Scheduled PRN Loperamide Hcl (Loperamide Hcl), 2 MG PO Q6H PRN for Diarrhea Ondansetron Hcl (Zofran), 8 MG PO Q8 PRN for Nausea Review of Systems Constitutional: + weakness, + fatigue, No fever, No chills, No sweats, No weight loss, No problem reported Eyes: No worsening of vision, No eye pain, No redness, No discharge, No diplopia, No problem reported ENT: No hearing loss, No unusual epistaxis, No nasal symptoms, No sore throat, No tinnitus, No dental problems, No trouble swallowing, No problem reported Respiratory: No cough, No sputum, No wheezing, No shortness of breath, No dyspnea on exertion, No dyspnea at rest, No hemoptysis, No problem reported Cardiovascular: No chest pain, No orthopnea, No PND, No edema, No claudication , No palpitations, No problem reported Abdomen: No pain, No nausea, No vomiting, No diarrhea, No constipation, No GI bleeding, No problem reported Musculoskeletal: No joint pain, No muscle pain, No swelling, No calf pain, No problem reported Genitourinary - Male: No hematuria, No dysuria, No urinary frequency, No urinary urgency, No urinary hesitancy, No urinary retention, No urinary incontinence, No penile discharge, No lesions, No impotence, No problem reported Neurologic: No memory loss, No paralysis, No weakness, No numbness/tingling, No vertigo, No balance problems, No problem reported Psychiatric: No depression symptoms, No anhedonism, No anxiety, No insomnia, No substance abuse, No problem reported Endocrine: No fatigue, No excessive thirst, No excessive urination, No problem reported Hematologic / Lymphatic: No abnormal bleeding/bruising, No clotting problems, No swollen lymph nodes, No night sweats, No problem reported Integumentary: No rash, No itch, No new/changing skin lesions, No color change , No bleeding, No problem reported Allergic / Immunologic: No environmental allergies, No seasonal allergies, No pet sensitivities, No food allergies, No hives, No frequent infections, No poor healing, No prolonged convalescence, No problem reported Physical Exam Vital Signs Date Time Temp Pulse Resp B/P (MAP) Pulse Ox O2 Delivery O2 Flow Rate FiO2 02/02/17 16:25 22 96/64 02/02/17 13:49 36.3 100 22 82/58 96 Room Air General Appearance: WD/WN, + cachetic, + thin Head: normocephalic, atraumatic Eyes: normal inspection, EOMI ENT: normal ENT inspection, hearing grossly normal Neck: supple Respiratory/Chest: chest non-tender, lungs clear, normal breath sounds, no respiratory distress, no accessory muscle use Cardiovascular: regular rate, rhythm, no edema, no gallop, no JVD, no murmur Abdomen/GI: normal bowel sounds, non tender, soft, no organomegaly, no pulsatile mass Back: normal inspection Extremities/Musculoskelatal: normal inspection 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, no motor/sensory deficits, alert, normal mood/affect, normal reflexes, oriented x 3 Skin: normal color, warm/dry, no rash Diagnostics Laboratory Results Results Past 24 Hours Test 02/02/17 14:40 Range/Units White Blood Count 5.15 4.8-10.8 K/uL Red Blood Count 4.42 4.7-6.1 M/uL Hemoglobin 13.7 14.0-18.0 g/dL Hematocrit 40.3 42-52 % Mean Corpuscular Volume 91.2 80-100 fL Mean Corpuscular Hemoglobin 31.0 25-34 pg Mean Corpuscular Hemoglobin Concent 34.0 32-36 g/dl Platelet Count 390 130-400 K/uL Mean Platelet Volume 9.3 7.4-10.4 fL Neutrophils (%) (Auto) 62.0 % Lymphocytes (%) (Auto) 22.3 % Monocytes (%) (Auto) 15.1 % Eosinophils (%) (Auto) 0.2 % Basophils (%) (Auto) 0.0 % Neutrophils # (Auto) 3.19 1.4-6.5 K/uL Lymphocytes # (Auto) 1.15 1.2-3.4 K/uL Monocytes # (Auto) 0.78 0.11-0.59 K/uL Eosinophils # (Auto) 0.01 0-0.5 K/uL Basophils # (Auto) 0.00 0-0.2 K/uL RDW Standard Deviation 72.8 36.4-46.3 fL RDW Coefficient of Variation 22.8 11.5-14.5 % Immature Granulocyte % (Auto) 0.4 % Immature Granulocyte # (Auto) 0.02 0.00-0.02 K/uL Anisocytosis PRESENT Activated Partial Thromboplast Time 25.5 21.0-31.0 SECONDS Partial Thromboplastin Ratio 1.0 Sodium Level 126 136-145 mmol/L Potassium Level 3.9 3.5-5.1 mmol/L Chloride Level 90 98-107 mmol/L Carbon Dioxide Level 29 21-32 mmol/L Anion Gap 7.0 3-11 mmol/L Blood Urea Nitrogen 16 7-18 mg/dl Creatinine 1.29 0.60-1.40 mg/dl Estimated GFR () 59.4 Estimated GFR (Non- 51.3 BUN/Creatinine Ratio 12.5 10-20 Random Glucose 207 70-99 mg/dl Calcium Level 8.6 8.5-10.1 mg/dl Magnesium Level 1.8 1.8-2.4 mg/dl Total Bilirubin 0.4 0.2-1 mg/dl Direct Bilirubin 0.2 0-0.2 mg/dl Aspartate Amino Transf (AST/SGOT) 22 15-37 U/L Alanine Aminotransferase (ALT/SGPT) 24 12-78 U/L Alkaline Phosphatase 115 45-117 U/L Total Creatine Kinase 42 39-308 U/L Creatine Kinase MB 3.8 0.5-3.6 ng/ml Creatine Kinase MB Ratio 9.0 0-3.0 Total Protein 6.7 6.4-8.2 gm/dl Albumin 2.8 3.4-5.0 gm/dl Impression Assessment and Plan Assessment/plan: Mr. English is an 81 year old man here for hyponatremia / generalized weakness , history of recurrent colon cancer currently on Xeloda which is held for hyponatremia and weakness Hyponatremia/failure to thrive/generalized fatigue, multifactorial, anorexia, decreased solute intake, last admission Completed osmolality was 262, [ hyponatremia with low osmolality] Previous TSH was 13 in January 26, Synthroid dose was increased, cortisol level was 20 on January 26, adrenal insufficiency was ruled out. This admission will order urine sodium and potassium, urine osmolality, serum osmolality Continue sodium tablets Nephrology consult, as family were beginning to see Dr. Newell as an outpatient anyway in few days, Consider starting Tolvaptan while inpatient, to monitor closely sodium level but will leave this decision up to curve saw operator Monitor sodium level closely/every 8 hours, avoid correcting sodium with a rate faster than 6 mmol per day Check orthostatic vitals daily Avoid a rate of correction > 1 mmol/4 hours INF hydration Continue boost supplement CAD / continue ASA Colon CA / continue to hold Xeloda, consider restarting when other symptoms controlled Hypothyroid, on 01/26 TSH was 13 and levothyroxine was increased to 100 mcg/day , continue this dose, recheck in 2 weeks Sacrum stage II decubitus / consult wound care nurse PT/OT BPH / continue Flomax DVT prophylaxis w low dose heparin VTE Prophylaxis VTE Risk Assessment Done? Y/N: Yes Risk Level: Moderate
[2017-02-02 18:12] VITALS: BP 98/56; PULSE 89; TEMP 36.4; Ht 165.1 cm; Wt 44.1 kg
[2017-02-02 18:50] LABS: CALCIUM 8.6 mg/dl (8.5-10.1); CREATININE 1.09 mg/dl (0.60-1.40); POTASSIUM 4.4 mmol/L (3.5-5.1)
[2017-02-02] MEDS: FERROUS SULFATE 325 MG TAB PO SCH (18:58)
[2017-02-02] MEDS: HEPARIN SOD 5000 UNIT/0.5 ML CARP SQ SCH (19:00)
[2017-02-02] MEDS: BOOST VANILLA PO SCH ×2 (20:00)
[2017-02-02] MEDS: DRONABINOL 2.5 MG CAP PO SCH (20:21)
[2017-02-02] MEDS: ASPIRIN 81 MG ECTAB PO SCH (20:22)
[2017-02-02] MEDS: SIMVASTATIN 40 MG TAB PO SCH (20:23)
[2017-02-02] MEDS ORDERED: PANTOprazole SOD 40 MG TAB PO SCH (21:00)
[2017-02-03 00:14] VITALS: BP 107/65; PULSE 77; TEMP 36.3; O2SAT 98
[2017-02-03 02:19] LABS: CALCIUM 8.1 mg/dl (8.5-10.1); CREATININE 0.95 mg/dl (0.60-1.40); POTASSIUM 3.7 mmol/L (3.5-5.1)
[2017-02-03] MEDS: HEPARIN SOD 5000 UNIT/0.5 ML CARP SQ SCH ×2 (05:49→17:43)
[2017-02-03 06:07] LABS: BASO % 0.2 %; BASO ABS # 0.01 K/uL (0-0.2); EOS % 1.2 %; HEMATOCRIT 36.1 % (42-52); IG% 0.5 %; MEAN CELL VOLUME 91.4 fL (80-100); MEAN CORPUSCULAR HEMOGLOBIN 30.9 pg (25-34); MEAN CORPUSCULAR HGB CONC 33.8 g/dl (32-36); MEAN PLATELET VOLUME 9.4 fL (7.4-10.4); MONO % 18.4 %; NEUT % 48.7 %; PLATELET COUNT 371 K/uL (130-400); RED BLOOD COUNT 3.95 M/uL (4.7-6.1); WHITE BLOOD COUNT 4.19 K/uL (4.8-10.8)
[2017-02-03 06:29] LABS: ANISOCYTOSIS PRESENT; COMPLETE YES; OVALOCYTES 1+
[2017-02-03] MEDS ORDERED: LEVOTHYROXINE 75 MCG TAB PO SCH (06:30)
[2017-02-03 06:40] LABS: BUN/CREATININE RATIO 17.6 (10-20); CALCIUM 8.2 mg/dl (8.5-10.1); CREATININE 0.94 mg/dl (0.60-1.40); MAGNESIUM 1.8 mg/dl (1.8-2.4); POTASSIUM 3.8 mmol/L (3.5-5.1)
[2017-02-03 06:43] LABS: ALB/GLOB RATIO 0.7 (0.9-2); PHOSPHORUS 2.9 mg/dl (2.5-4.9)
[2017-02-03 07:25] VITALS: BP 94/60; PULSE 71; TEMP 36.2; O2SAT 99
[2017-02-03] MEDS ORDERED: BOOST VANILLA PO SCH ×2 (08:00)
[2017-02-03] MEDS: ASPIRIN 81 MG ECTAB PO SCH (09:06)
[2017-02-03] MEDS: DRONABINOL 2.5 MG CAP PO SCH ×2 (09:06→20:49)
[2017-02-03] MEDS: FERROUS SULFATE 325 MG TAB PO SCH ×2 (09:06→16:24)
[2017-02-03] MEDS: MAGNESIUM OXIDE 400 MG TAB PO SCH (09:06)
[2017-02-03] MEDS: BOOST VANILLA PO SCH ×6 (09:09→19:00)
[2017-02-03 10:36] LABS: BUN/CREATININE RATIO 15.1 (10-20); CALCIUM 8.7 mg/dl (8.5-10.1); CREATININE 1.07 mg/dl (0.60-1.40)
[2017-02-03 10:49] VITALS: BP_SYST 88; BP_SYST 89; BP_SYST 94; BP_DIAS 53; BP_DIAS 59; BP_DIAS 67; PULSE 107; PULSE 92; PULSE 98
[2017-02-03] MEDS ORDERED: NURSING VERBAL MED ORDER ONE (11:30)
[2017-02-03] MEDS ORDERED: SODIUM CHLORIDE 1 GM TAB PO ONE ×2 (11:30→12:38)
[2017-02-03] MEDS: TAMSULOSIN HCL 0.4 MG CAP PO SCH (11:39)
--- NOTE | 2017-02-03 13:06 | Nephrology Consultation ---
Nephrology Consultation Date & Providers Date of Consultation: Feb 03, 2017. Primary Care Provider: Sonido Riojas M.D. Referring Provider: Reason for Consultation Hyponatremia History of Present Illness Mr. English is an 81 year old white male who is seen at the request of Dr. Mondragon for evaluation of persistent hyponatremia. Medical records in the hospital EMR were reviewed and are summarized as follows: Mr. English was diagnosed w/ metastatic colon cancer 05/26. He is currently under the care of Dr. Tolbert from [facility] and receives Xeloda therapy. In 09/25 he developed a SBO and had a diverting ileostomy by Dr. Bautista. This was complicated by high ostomy output and dehydration. In 11/25 Mr. English suffered a fall resulting in a R hip fracture. He underwent R DAVION by Dr. Alvarez 11/30/16. Over the last month Mr. English has had 3 hospitalizations for dehydration and weakness. This has been complicated by hyponatremia. His serum sodium has been 125 - 130 mMol/L. Recent evaluation has revealed hypothyroidism. Levothyroxine has been adjusted. Cortisol was checked and found to be within acceptable limits. Serum creatinine has been stable at 1.0. Mr. English was discharged to home with NaCl 1 g tablet daily from his last hospitalization. At home he was not using the medication but rather was trying to maintain a high dietary sodium intake by eating popcorn. Serum sodium this hospitalization was 126. This has remained low despite 500 cc IV 0.9 NS. Urine osmolality has not yet been completed. Past Medical/Surgical History Medical: # Metastatic colon CA - on Xeloda therapy by [facility] # Anemia # AODM # Hyperlipidemia # Hypothyroidism # HTN # BPH # ASCVD s/p AMI # GERD # Arthritis Surgical: # Diverting ostomy due to recurrent SBO 09/25 Allergies Coded Allergies: Clarithromycin (Verified Allergy, Severe, "MAJOR RXN" ?, 02/02/17) Penicillins (Verified Allergy, Severe, "MAJOR RXN" ?, 02/02/17) Sulfa Antibiotics (Verified Allergy, Severe, "SULFA DRUGS": "MAJOR RXN"?, 02/02/17) Sulfonylureas (Verified Allergy, Intermediate, RASH, 02/03/17) Cephalosporins (Verified Allergy, Unknown, ?, 02/02/17) Streptokinase (Verified Allergy, Unknown, ?, 02/02/17) Codeine (Verified Adverse Reaction, Mild, NAUSEA / VOMITING, 02/02/17) Diltiazem (Verified Adverse Reaction, Mild, FLUSHING, 02/03/17) Morphine (Verified Adverse Reaction, Mild, N/V, 02/03/17) Inpatient Medications Current Inpatient Medications Medications (Trade) Dose Ordered Sig/Lenka Route Start Time Stop Time Status Last Admin Dose Admin Aspirin (Ecotrin Tab) 81 mg BID PO 02/02/17 20:00 03/04/17 20:59 02/03/17 09:06 81 MG Ferrous Sulfate (Feosol Tab) 325 mg BIDM PO 02/02/17 17:32 03/04/17 17:59 02/03/17 09:06 325 MG Magnesium Oxide (Mag-Ox Tab) 400 mg DAILY PO 02/03/17 08:00 03/05/17 08:59 02/03/17 09:06 400 MG Nitroglycerin (Nitrostat Tab) 0.4 mg PRN UT 02/02/17 16:45 03/04/17 16:44 Ondansetron HCl (Zofran Tab) 8 mg Q8 PRN PO 02/02/17 16:45 03/04/17 16:44 Simvastatin (Zocor Tab) 40 mg QPM PO 02/02/17 21:00 03/04/17 20:59 02/02/17 20:23 40 MG Tamsulosin HCl (Flomax Cap) 0.4 mg DAILY@1200 PO 02/03/17 12:00 03/05/17 11:59 02/03/17 11:39 0.4 MG Loperamide HCl (Imodium Cap) 2 mg Q6H PRN PO 02/02/17 16:45 03/04/17 16:44 Acetaminophen (Tylenol Tab) 650 mg Q4H PRN PO 02/02/17 16:45 03/04/17 16:44 Al Hydrox/Mg Hydrox/Simethicone (Maalox Max Susp) 15 ml Q4H PRN PO 02/02/17 16:45 03/04/17 16:44 Magnesium Hydroxide (Milk Of Magnesia Susp) 30 ml Q6H PRN PO 02/02/17 16:45 1/24/18 16:44 Polyethylene (Miralax Powder Packet) 17 gm DAILY PRN PO 02/02/17 16:45 03/04/17 16:44 Zolpidem Tartrate (Ambien Tab) 5 mg HSZ PRN PO 02/02/17 16:45 03/04/17 16:44 Ondansetron HCl (Zofran Inj) 4 mg Q6H PRN IV 02/02/17 16:45 03/04/17 16:44 Heparin Sodium (Porcine) (Heparin Sq 5000 Unit/0.5ml) 5,000 unit Q12H SQ 02/02/17 18:30 03/04/17 18:29 02/03/17 05:49 5,000 UNIT Enteral Nutritional Formula (Boost) 1 can TID PO 02/02/17 20:00 03/05/17 08:59 Dronabinol (Marinol Cap) 2.5 mg BID PO 02/02/17 21:00 03/04/17 20:59 02/03/17 09:06 2.5 MG Sodium Chloride (Sodium Chloride Tab) 1 gm DAILY PO 02/04/17 08:00 03/06/17 07:59 Levothyroxine Sodium (Synthroid Tab) 75 mcg DAILYBB PO 02/04/17 06:30 03/06/17 06:29 Pantoprazole Sodium (Protonix Tab) 40 mg QPM PO 02/03/17 21:00 03/05/17 20:59 Family History Cancer Diabetes mellitus FHx: heart disease FHx: kidney disease/stones Negative for CKD/ESRD Social History Smoking Status: Former Smoker Drug Use: none Marital Status: Housing Status: lives with significant other Occupation: retired , retired, former smoker Review of Systems Constitutional: No fever Respiratory: No shortness of breath Cardiovascular: No chest pain Abdomen: No pain, No nausea, No vomiting A complete review of systems was performed. Pertinent positives are noted above. All other systems are negative. Physical Exam Date Time Temp Pulse Resp B/P (MAP) Pulse Ox O2 Delivery O2 Flow Rate FiO2 02/03/17 10:49 92 94/67 (76) 98 89/59 (69) 107 88/53 (65) 02/03/17 09:00 Room Air 02/03/17 07:25 36.2 71 18 94/60 (71) 99 Room Air 02/03/17 01:04 Room Air 02/03/17 00:14 36.3 77 16 107/65 (79) 98 Room Air 02/02/17 18:12 36.4 89 20 98/56 Room Air 02/02/17 17:45 36.4 89 20 98/56 100 02/02/17 17:44 36.4 89 20 98/56 (70) 100 Room Air 02/02/17 16:25 22 96/64 02/02/17 13:49 36.3 100 22 82/58 96 Room Air General Appearance: + cachetic Head: atraumatic (temporal muscle wasting) Eyes: PERRL, EOMI Neck: no adenopathy Respiratory/Chest: lungs clear, no respiratory distress Cardiovascular: regular rate, rhythm Abdomen/GI: normal bowel sounds, non tender, soft Extremities/Musculoskelatal: no pedal edema Neurologic/Psych: alert, oriented x 3 Skin: warm/dry Laboratory Results Last 24 Hours Test 02/02/17 14:40 02/02/17 18:18 02/03/17 01:48 02/03/17 05:37 White Blood Count 5.15 K/uL 4.19 K/uL Red Blood Count 4.42 M/uL 3.95 M/uL Hemoglobin 13.7 g/dL 12.2 g/dL Hematocrit 40.3 % 36.1 % Mean Corpuscular Volume 91.2 fL 91.4 fL Mean Corpuscular Hemoglobin 31.0 pg 30.9 pg Mean Corpuscular Hemoglobin Concent 34.0 g/dl 33.8 g/dl Platelet Count 390 K/uL 371 K/uL Mean Platelet Volume 9.3 fL 9.4 fL Neutrophils (%) (Auto) 62.0 % 48.7 % Lymphocytes (%) (Auto) 22.3 % 31.0 % Monocytes (%) (Auto) 15.1 % 18.4 % Eosinophils (%) (Auto) 0.2 % 1.2 % Basophils (%) (Auto) 0.0 % 0.2 % Neutrophils # (Auto) 3.19 K/uL 2.04 K/uL Lymphocytes # (Auto) 1.15 K/uL 1.30 K/uL Monocytes # (Auto) 0.78 K/uL 0.77 K/uL Eosinophils # (Auto) 0.01 K/uL 0.05 K/uL Basophils # (Auto) 0.00 K/uL 0.01 K/uL RDW Standard Deviation 72.8 fL 72.9 fL RDW Coefficient of Variation 22.8 % 22.9 % Immature Granulocyte % (Auto) 0.4 % 0.5 % Immature Granulocyte # (Auto) 0.02 K/uL 0.02 K/uL Anisocytosis PRESENT PRESENT Activated Partial Thromboplast Time 25.5 SECONDS Partial Thromboplastin Ratio 1.0 Sodium Level 126 mmol/L 130 mmol/L 128 mmol/L 127 mmol/L Potassium Level 3.9 mmol/L 4.4 mmol/L 3.7 mmol/L 3.8 mmol/L Chloride Level 90 mmol/L 95 mmol/L 94 mmol/L 94 mmol/L Carbon Dioxide Level 29 mmol/L 27 mmol/L 29 mmol/L 28 mmol/L Anion Gap 7.0 mmol/L 8.0 mmol/L 5.0 mmol/L 6.0 mmol/L Blood Urea Nitrogen 16 mg/dl 16 mg/dl 15 mg/dl 17 mg/dl Creatinine 1.29 mg/dl 1.09 mg/dl 0.95 mg/dl 0.94 mg/dl Estimated GFR () 59.4 72.9 86.1 87.2 Estimated GFR (Non- 51.3 62.9 74.2 75.2 BUN/Creatinine Ratio 12.5 15.0 16.0 17.6 Random Glucose 207 mg/dl 132 mg/dl 119 mg/dl 119 mg/dl Calcium Level 8.6 mg/dl 8.6 mg/dl 8.1 mg/dl 8.2 mg/dl Magnesium Level 1.8 mg/dl 1.8 mg/dl Total Bilirubin 0.4 mg/dl 0.5 mg/dl Direct Bilirubin 0.2 mg/dl Aspartate Amino Transf (AST/SGOT) 22 U/L 21 U/L Alanine Aminotransferase (ALT/SGPT) 24 U/L 20 U/L Alkaline Phosphatase 115 U/L 94 U/L Total Creatine Kinase 42 U/L Creatine Kinase MB 3.8 ng/ml Creatine Kinase MB Ratio 9.0 Total Protein 6.7 gm/dl 5.7 gm/dl Albumin 2.8 gm/dl 2.4 gm/dl Est Creatinine Clear Calc Drug Dose 32.6 ml/min 37.4 ml/min 37.8 ml/min Osmolality 272 mOsm/kg Ovalocytes 1+ Phosphorus Level 2.9 mg/dl Globulin 3.3 gm/dl Albumin/Globulin Ratio 0.7 Test 02/03/17 09:50 Sodium Level 127 mmol/L Potassium Level 4.0 mmol/L Chloride Level 92 mmol/L Carbon Dioxide Level 27 mmol/L Anion Gap 7.0 mmol/L Blood Urea Nitrogen 16 mg/dl Creatinine 1.07 mg/dl Est Creatinine Clear Calc Drug Dose 33.2 ml/min Estimated GFR () 74.5 Estimated GFR (Non- 64.3 BUN/Creatinine Ratio 15.1 Random Glucose 193 mg/dl Calcium Level 8.7 mg/dl Impression (1) Hyponatremia (2) Colon carcinoma (3) Generalized weakness Recommendations Difficult to discern whether this is hyponatremia due to dehydration w/ low solute intake or SIADH associated w/ underlying malignancy. Patient has had chronic hyponatremia w/ serum sodium 125 - 130 mmol/L. He appears to be neurologically intact. Will increase NaCl intake to 1 g po BID and monitor serum sodium. Orders placed in EMR for urinalysis, serum and urine osmolality. Will not order TSH or cortisol since these have recently been addressed. Will monitor serial PRP. Hold Tolvaptan for now as patient appears to be mildly volume contracted. Will focus on increasing solute intake first.
--- NOTE | 2017-02-03 13:59 | Hospitalist Progress Note ---
Hospitalist Progress Note Date of Service Feb 03, 2017. (Brittany Reid CRNP) Subjective Pt evaluation today including: conversation w/ patient, conversation w/ family , physical exam, chart review, lab review, review of inpatient medication list Voiding: no voiding problems Mr. English has no complaints. He denies feeling weak. He reports bowel movements are less watery. He has had some increase in appetite but was unable to eat lunch after eating all of his breakfast and drinking water with his salt tablet. ROS Constitutional: no chills, aches, sweats or fever Respiratory: no sob,cough, sputum, or wheezing Cardiac: no chest pain, palpitations, edema, orthopnea or lightheadedness GI: no abdominal pain, nausea, vomiting, diarrhea or constipation : no dysuria or hesitancy Extremities: no joint pain or weakness Skin: no rash All Other Systems: Reviewed and Negative (Brittany Reid CRNP) Medications Medications (Trade) Dose Ordered Sig/Lenka Route Start Time Stop Time Status Last Admin Dose Admin Sodium Chloride 250 ml @ 999 mls/hr Q16M STAT IV 02/02/17 14:14 02/02/17 14:29 DC 02/02/17 14:20 999 MLS/HR Sodium Chloride 250 ml @ 999 mls/hr Q16M STAT IV 02/02/17 16:26 02/02/17 16:41 DC 02/02/17 16:48 999 MLS/HR Aspirin (Ecotrin Tab) 81 mg BID PO 02/02/17 20:00 03/04/17 20:59 02/03/17 09:06 81 MG Ferrous Sulfate (Feosol Tab) 325 mg BIDM PO 02/02/17 17:32 03/04/17 17:59 02/03/17 09:06 325 MG Levothyroxine Sodium (Synthroid Tab) 0.075 mcg DAILYBB PO 02/03/17 06:30 02/03/17 10:25 DC 02/03/17 05:46 0.075 MCG Magnesium Oxide (Mag-Ox Tab) 400 mg DAILY PO 02/03/17 08:00 03/05/17 08:59 02/03/17 09:06 400 MG Simvastatin (Zocor Tab) 40 mg QPM PO 02/02/17 21:00 1/24/18 20:59 02/02/17 20:23 40 MG Tamsulosin HCl (Flomax Cap) 0.4 mg DAILY@1200 PO 02/03/17 12:00 03/05/17 11:59 02/03/17 11:39 0.4 MG Pantoprazole Sodium (Protonix Tab) 20 mg QPM PO 02/02/17 21:00 02/03/17 10:26 DC 02/02/17 20:22 20 MG Heparin Sodium (Porcine) (Heparin Sq 5000 Unit/0.5ml) 5,000 unit Q12H SQ 02/02/17 18:30 03/04/17 18:29 02/03/17 05:49 5,000 UNIT Dronabinol (Marinol Cap) 2.5 mg BID PO 02/02/17 21:00 03/04/17 20:59 02/03/17 09:06 2.5 MG Sodium Chloride (Sodium Chloride Tab) 1 gm 1130 ONCE PO 02/03/17 11:30 02/03/17 11:31 DC 02/03/17 11:39 1 GM (Brittany Reid CRNP) Objective Vital Signs Date Time Temp Pulse Resp B/P (MAP) Pulse Ox O2 Delivery O2 Flow Rate FiO2 02/03/17 10:49 92 94/67 (76) 98 89/59 (69) 107 88/53 (65) 02/03/17 09:00 Room Air 02/03/17 07:25 36.2 71 18 94/60 (71) 99 Room Air 02/03/17 01:04 Room Air 02/03/17 00:14 36.3 77 16 107/65 (79) 98 Room Air 02/02/17 18:12 36.4 89 20 98/56 Room Air 02/02/17 17:45 36.4 89 20 98/56 100 02/02/17 17:44 36.4 89 20 98/56 (70) 100 Room Air 02/02/17 16:25 22 96/64 02/02/17 13:49 36.3 100 22 82/58 96 Room Air (Brittany Reid CRNP) Physical Exam Notes: General: no distress Eyes: normal inspection, PERLL Respiratory: chest non tender, clear to auscultation, normal breath sounds, no respiratory distress, no accessory muscle use Cardiac: regular rate and rhythm, no rub or gallop, no murmur, no edema, no jvd GI/: active bowel sounds, no abd pain or tenderness, soft, non distended Extremities: normal range of motion, normal strength, non tender Neuro/Psych: alert and oriented x 3, normal mood and affect Skin: normal color, dry (Brittany Reid ., [employer]) Laboratory Results Last 24 Hours Test 02/02/17 14:40 02/02/17 18:18 02/03/17 01:48 02/03/17 05:37 White Blood Count 5.15 K/uL 4.19 K/uL Red Blood Count 4.42 M/uL 3.95 M/uL Hemoglobin 13.7 g/dL 12.2 g/dL Hematocrit 40.3 % 36.1 % Mean Corpuscular Volume 91.2 fL 91.4 fL Mean Corpuscular Hemoglobin 31.0 pg 30.9 pg Mean Corpuscular Hemoglobin Concent 34.0 g/dl 33.8 g/dl Platelet Count 390 K/uL 371 K/uL Mean Platelet Volume 9.3 fL 9.4 fL Neutrophils (%) (Auto) 62.0 % 48.7 % Lymphocytes (%) (Auto) 22.3 % 31.0 % Monocytes (%) (Auto) 15.1 % 18.4 % Eosinophils (%) (Auto) 0.2 % 1.2 % Basophils (%) (Auto) 0.0 % 0.2 % Neutrophils # (Auto) 3.19 K/uL 2.04 K/uL Lymphocytes # (Auto) 1.15 K/uL 1.30 K/uL Monocytes # (Auto) 0.78 K/uL 0.77 K/uL Eosinophils # (Auto) 0.01 K/uL 0.05 K/uL Basophils # (Auto) 0.00 K/uL 0.01 K/uL RDW Standard Deviation 72.8 fL 72.9 fL RDW Coefficient of Variation 22.8 % 22.9 % Immature Granulocyte % (Auto) 0.4 % 0.5 % Immature Granulocyte # (Auto) 0.02 K/uL 0.02 K/uL Anisocytosis PRESENT PRESENT Activated Partial Thromboplast Time 25.5 SECONDS Partial Thromboplastin Ratio 1.0 Sodium Level 126 mmol/L 130 mmol/L 128 mmol/L 127 mmol/L Potassium Level 3.9 mmol/L 4.4 mmol/L 3.7 mmol/L 3.8 mmol/L Chloride Level 90 mmol/L 95 mmol/L 94 mmol/L 94 mmol/L Carbon Dioxide Level 29 mmol/L 27 mmol/L 29 mmol/L 28 mmol/L Anion Gap 7.0 mmol/L 8.0 mmol/L 5.0 mmol/L 6.0 mmol/L Blood Urea Nitrogen 16 mg/dl 16 mg/dl 15 mg/dl 17 mg/dl Creatinine 1.29 mg/dl 1.09 mg/dl 0.95 mg/dl 0.94 mg/dl Estimated GFR () 59.4 72.9 86.1 87.2 Estimated GFR (Non- 51.3 62.9 74.2 75.2 BUN/Creatinine Ratio 12.5 15.0 16.0 17.6 Random Glucose 207 mg/dl 132 mg/dl 119 mg/dl 119 mg/dl Calcium Level 8.6 mg/dl 8.6 mg/dl 8.1 mg/dl 8.2 mg/dl Magnesium Level 1.8 mg/dl 1.8 mg/dl Total Bilirubin 0.4 mg/dl 0.5 mg/dl Direct Bilirubin 0.2 mg/dl Aspartate Amino Transf (AST/SGOT) 22 U/L 21 U/L Alanine Aminotransferase (ALT/SGPT) 24 U/L 20 U/L Alkaline Phosphatase 115 U/L 94 U/L Total Creatine Kinase 42 U/L Creatine Kinase MB 3.8 ng/ml Creatine Kinase MB Ratio 9.0 Total Protein 6.7 gm/dl 5.7 gm/dl Albumin 2.8 gm/dl 2.4 gm/dl Est Creatinine Clear Calc Drug Dose 32.6 ml/min 37.4 ml/min 37.8 ml/min Osmolality 272 mOsm/kg Ovalocytes 1+ Phosphorus Level 2.9 mg/dl Globulin 3.3 gm/dl Albumin/Globulin Ratio 0.7 Test 02/03/17 09:50 Sodium Level 127 mmol/L Potassium Level 4.0 mmol/L Chloride Level 92 mmol/L Carbon Dioxide Level 27 mmol/L Anion Gap 7.0 mmol/L Blood Urea Nitrogen 16 mg/dl Creatinine 1.07 mg/dl Est Creatinine Clear Calc Drug Dose 33.2 ml/min Estimated GFR () 74.5 Estimated GFR (Non- 64.3 BUN/Creatinine Ratio 15.1 Random Glucose 193 mg/dl Calcium Level 8.7 mg/dl (Brittany Reid CRNP) Assessment and Plan Mr. English is an 81 year old man here for hyponatremia / generalized weakness in the setting of colon cancer. Hyponatremia/failure to thrive/generalized fatigue - consulted nephrology - awaiting urine osmo, sodium tab increased to 1g bid - TSH on was 13 and Synthroid increased to 100 mcg at that time, cortisol normal - patient continues to have low po intake and lack of appetite - continue orthostatic vitals daily - Marinol started yesterday, continue - Continue PT/OT CAD - continue ASA Colon CA - continue to hold Xeloda for eye pain until restarted by Dr. Tolbert Hypothyroid - 01/26 TSH was 13 and levothyroxine was increased to 100 mcg/day - continue this dose, recheck in 2 weeks Sacrum stage II decubitus - consult wound care nurse - q2h turn and reposition BPH - continue Flomax DVT prophylaxis w low dose heparin (Brittany Reid CRNP) Reviewed: Pt Seen/Exam by Me (Wendy Hobbs MD) History [employer] Supervision Note: I interviewed and examined the patient. Discussed with AMI Reid and agree with findings and plan as documented in the note. Any exceptions or clarifications are listed here: Pt continues to have high output from his ileostomy bag, says it has to be changed three times per night and leaks frequently. He was able to walk the halls today multiple times, does not feel weak, but sitll feels like his voice is hoarse and he is dehydrated. Vitals reviewed, low BPs AAOx3, NAD RRR no mgr CTAB no wcr Abd +BS sof Laz, ileostomy bag with large amount of liquid stool and gas Ext no edema 81 yo male here for readmission again for hyponatremia. Ur Osm 556, Ur Na+7, with high output from ostomy bag and appears dehydrated on exam--> Hypotonic hyponatremia with hypovolemia -continue salt tabs 1 gram bid as per Nephrology -po fluids only now as d/w Nephro -GI suggested Imodium in consultation in 09/2016 for high output ostomy--> pt agreeable to starting this again Documented By: Wendy Hobbs (Wendy Hobbs MD)
[2017-02-03 15:13] VITALS: BP 93/57; PULSE 84; TEMP 36.3; O2SAT 99
[2017-02-03 17:26] LABS: URINE APPEARANCE CLEAR (CLEAR); URINE COLOR DK YELLOW; URINE NITRITE NEG (NEG); URINE PH 5.5 (4.5-7.5); URINE SPECIFIC GRAVITY 1.022 (1.000-1.030); UROBILINOGEN NEG (NEG)
[2017-02-03 17:47] LABS: MANUAL MICROSCOPIC REQUIRED? NO; REVIEW REQ? YES; URINE BILIRUBIN NEG (NEG)
[2017-02-03 17:48] LABS: URINE MUCUS PRESENT (NONE PRSENT)
[2017-02-03 17:50] LABS: ZZUR CULT IF INDIC CLEAN CATCH YES
[2017-02-03 18:42] LABS: BUN/CREATININE RATIO 15.5 (10-20); CALCIUM 8.6 mg/dl (8.5-10.1); CREATININE 0.96 mg/dl (0.60-1.40); POTASSIUM 3.7 mmol/L (3.5-5.1)
[2017-02-03] MEDS ORDERED: LOPERAMIDE HCL 2 MG CAP PO STA (19:55)
[2017-02-03] MEDS: SODIUM CHLORIDE 1 GM TAB PO SCH (20:49)
[2017-02-03] MEDS: PANTOprazole SOD 40 MG TAB PO SCH (20:49)
[2017-02-03] MEDS: SIMVASTATIN 40 MG TAB PO SCH (20:49)
[2017-02-03] MEDS: ONDANSETRON 8 MG TAB PO PRN (20:57)
[2017-02-03 22:42] VITALS: BP 93/59; PULSE 95; TEMP 36.3; O2SAT 99
[2017-02-04 06:02] LABS: HEMATOCRIT 40.7 % (42-52); MEAN CELL VOLUME 91.1 fL (80-100); MEAN CORPUSCULAR HEMOGLOBIN 30.4 pg (25-34); MEAN CORPUSCULAR HGB CONC 33.4 g/dl (32-36); MEAN PLATELET VOLUME 9.5 fL (7.4-10.4); PLATELET COUNT 372 K/uL (130-400); RED BLOOD COUNT 4.47 M/uL (4.7-6.1); WHITE BLOOD COUNT 4.42 K/uL (4.8-10.8)
[2017-02-04] MEDS: LEVOTHYROXINE 100 MCG TAB PO SCH (06:06)
[2017-02-04] MEDS: HEPARIN SOD 5000 UNIT/0.5 ML CARP SQ SCH ×2 (06:10→19:14)
[2017-02-04] MEDS ORDERED: LEVOTHYROXINE 75 MCG TAB PO SCH (06:30)
[2017-02-04 06:37] LABS: BUN/CREATININE RATIO 15.9 (10-20); CALCIUM 8.6 mg/dl (8.5-10.1); CREATININE 0.93 mg/dl (0.60-1.40); POTASSIUM 3.8 mmol/L (3.5-5.1)
[2017-02-04 06:49] LABS: THYROID STIMULATING HORMONE 9.64 uIu/ml (0.300-4.500)
[2017-02-04 07:37] VITALS: BP_SYST 94; BP_SYST 99; BP_DIAS 62; BP_DIAS 63; PULSE 76; TEMP 36.4; O2SAT 99
[2017-02-04] MEDS ORDERED: SODIUM CHLORIDE 1 GM TAB PO SCH (08:00)
[2017-02-04] MEDS: LOPERAMIDE HCL 2 MG CAP PO SCH (08:52)
[2017-02-04] MEDS: FERROUS SULFATE 325 MG TAB PO SCH ×2 (08:52→17:30)
[2017-02-04] MEDS: ASPIRIN 81 MG ECTAB PO SCH (08:52)
[2017-02-04] MEDS: DRONABINOL 2.5 MG CAP PO SCH ×2 (08:53→20:50)
[2017-02-04] MEDS: MAGNESIUM OXIDE 400 MG TAB PO SCH (08:53)
[2017-02-04] MEDS: BOOST VANILLA PO SCH ×6 (08:53→19:13)
[2017-02-04] MEDS: SODIUM CHLORIDE 1 GM TAB PO SCH ×2 (08:53→20:51)
[2017-02-04] MEDS ORDERED: SODIUM CHLORIDE 1 GM TAB PO ONE (09:30)
--- NOTE | 2017-02-04 10:31 | Nephrology Progress Note ---
Nephrology Progress Note Date of Service Feb 04, 2017. Chief Complaint Hyponatremia Subjective Mr. English was seen & examined in his hospital room this morning. He is tolerating NaCl tablets without GI upset. He reports that he is a little stronger this am. Mr. English voices no other medical concerns Review of Systems Constitutional: No fever Cardiovascular: No chest pain Respiratory: No dyspnea at rest Abdomen: No pain, No nausea, No vomiting Extremities: No leg edema A complete review of systems was performed. Pertinent positives are noted above. All other systems are negative. Vital Signs Last 8 Hrs Date Time Temp Pulse Resp B/P (MAP) Pulse Ox O2 Delivery O2 Flow Rate FiO2 02/04/17 07:37 36.4 76 16 99/62 (74) 99 99/63 (75) 94/62 (73) Last Recorded Weight Weight (Kilograms): 44.100 Physical Exam General Appearance: + cachetic Head: atraumatic (temporal muscle wasting) Eyes: PERRL, EOMI Neck: no adenopathy Respiratory/Chest: lungs clear, no respiratory distress Cardiovascular: regular rate, rhythm Abdomen/GI: normal bowel sounds, non tender, soft Extremities/Musculoskelatal: no pedal edema Neurologic/Psych: alert, oriented x 3 Family History Cancer Diabetes mellitus FHx: heart disease FHx: kidney disease/stones Negative for CKD/ESRD Social History Smoking Status: Never smoker Drug Use: none Marital Status: Housing Status: lives with significant other Occupation: retired , retired, former smoker Laboratory Results Past 24 Hours 02/04/17 05:32 02/03/17 17:47 02/04/17 05:32 Test 02/03/17 13:50 02/03/17 17:47 02/04/17 05:32 02/04/17 08:28 Urine Color DK YELLOW Urine Appearance CLEAR (CLEAR) Urine pH 5.5 (4.5-7.5) Urine Specific [place] 1.022 (1.000-1.030) Urine Protein 1+ (NEG) Urine Glucose (UA) NEG (NEG) Urine Ketones TRACE (NEG) Urine Occult Blood NEG (NEG) Urine Nitrite NEG (NEG) Urine Bilirubin NEG (NEG) Urine Urobilinogen NEG (NEG) Urine Leukocyte Esterase NEG (NEG) Urine WBC (Auto) 1-5 /hpf (0-5) Urine RBC (Auto) 0-4 /hpf (0-4) Urine Hyaline Casts (Auto) 10-30 /lpf (0-5) Urine Epithelial Cells (Auto) 10-20 /lpf (0-5) Urine Bacteria (Auto) 1+ (NEG) Urine Crystals CALCIUM OXALATE (NONE Urine Pathogenic Casts /lpf (0) Urine Mucus PRESENT (NONE PRSENT) Urine Osmolality 556 mOms/kg (500-800) Urine Random Sodium 7 mEq/L Urine Random Potassium 18.1 mEq/L Anion Gap 8.0 mmol/L (3-11) 6.0 mmol/L (3-11) Est Creatinine Clear Calc Drug Dose 37.0 ml/min 38.2 ml/min Estimated GFR () 85.0 88.3 Estimated GFR (Non- 73.3 76.2 BUN/Creatinine Ratio 15.5 (10-20) 15.9 (10-20) Calcium Level 8.6 mg/dl (8.5-10.1) 8.6 mg/dl (8.5-10.1) Red Blood Count 4.47 M/uL (4.7-6.1) Mean Corpuscular Volume 91.1 fL (80-100) Mean Corpuscular Hemoglobin 30.4 pg (25-34) Mean Corpuscular Hemoglobin Concent 33.4 g/dl (32-36) RDW Standard Deviation 71.9 fL (36.4-46.3) RDW Coefficient of Variation 22.6 % (11.5-14.5) Mean Platelet Volume 9.5 fL (7.4-10.4) Osmolality 272 mOsm/kg (280-300) Thyroid Stimulating Hormone (TSH) 9.640 uIu/ml (0.300-4.500) Vitamin B12 Level 1486 pg/mL (211-911) 25-Hydroxy Vitamin D Total 27.6 ng/ml (30-100) Allergies Coded Allergies: Clarithromycin (Verified Allergy, Severe, "MAJOR RXN" ?, 02/02/17) Penicillins (Verified Allergy, Severe, "MAJOR RXN" ?, 02/02/17) Sulfa Antibiotics (Verified Allergy, Severe, "SULFA DRUGS": "MAJOR RXN"?, 02/02/17) Sulfonylureas (Verified Allergy, Intermediate, RASH, 02/03/17) Cephalosporins (Verified Allergy, Unknown, ?, 02/02/17) Streptokinase (Verified Allergy, Unknown, ?, 02/02/17) Codeine (Verified Adverse Reaction, Mild, NAUSEA / VOMITING, 02/02/17) Diltiazem (Verified Adverse Reaction, Mild, FLUSHING, 02/03/17) Morphine (Verified Adverse Reaction, Mild, N/V, 02/03/17) Medications Current Inpatient Medications Medications (Trade) Dose Ordered Sig/Lenka Route Start Time Stop Time Status Last Admin Dose Admin Ferrous Sulfate (Feosol Tab) 325 mg BIDM PO 02/02/17 17:32 03/04/17 17:59 02/04/17 08:52 325 MG Magnesium Oxide (Mag-Ox Tab) 400 mg DAILY PO 02/03/17 08:00 03/05/17 08:59 02/04/17 08:53 400 MG Nitroglycerin (Nitrostat Tab) 0.4 mg PRN UT 02/02/17 16:45 03/04/17 16:44 Ondansetron HCl (Zofran Tab) 8 mg Q8 PRN PO 02/02/17 16:45 03/04/17 16:44 02/03/17 20:57 8 MG Simvastatin (Zocor Tab) 40 mg QPM PO 02/02/17 21:00 03/04/17 20:59 02/03/17 20:49 40 MG Tamsulosin HCl (Flomax Cap) 0.4 mg DAILY@1200 PO 02/03/17 12:00 03/05/17 11:59 02/03/17 11:39 0.4 MG Loperamide HCl (Imodium Cap) 2 mg Q6H PRN PO 02/02/17 16:45 03/04/17 16:44 Acetaminophen (Tylenol Tab) 650 mg Q4H PRN PO 02/02/17 16:45 03/04/17 16:44 Al Hydrox/Mg Hydrox/Simethicone (Maalox Max Susp) 15 ml Q4H PRN PO 02/02/17 16:45 03/04/17 16:44 02/03/17 16:24 15 ML Magnesium Hydroxide (Milk Of Magnesia Susp) 30 ml Q6H PRN PO 02/02/17 16:45 03/04/17 16:44 Polyethylene (Miralax Powder Packet) 17 gm DAILY PRN PO 02/02/17 16:45 03/04/17 16:44 Zolpidem Tartrate (Ambien Tab) 5 mg HSZ PRN PO 02/02/17 16:45 03/04/17 16:44 Ondansetron HCl (Zofran Inj) 4 mg Q6H PRN IV 02/02/17 16:45 03/04/17 16:44 Heparin Sodium (Porcine) (Heparin Sq 5000 Unit/0.5ml) 5,000 unit Q12H SQ 02/02/17 18:30 03/04/17 18:29 02/04/17 06:10 5,000 UNIT Dronabinol (Marinol Cap) 2.5 mg BID PO 02/02/17 21:00 03/04/17 20:59 02/04/17 08:53 2.5 MG Pantoprazole Sodium (Protonix Tab) 40 mg QPM PO 02/03/17 21:00 03/05/17 20:59 02/03/17 20:49 40 MG Aspirin (Ecotrin Tab) 81 mg DAILY PO 02/04/17 08:00 03/04/17 20:59 02/04/17 08:52 81 MG Levothyroxine Sodium (Synthroid Tab) 100 mcg DAILYBB PO 02/04/17 06:30 03/06/17 06:29 02/04/17 06:06 100 MCG Enteral Nutritional Formula (Boost) 1 can TID@1000,1400,1900 PO 02/03/17 19:00 03/05/17 18:59 02/04/17 08:53 1 CAN Loperamide HCl (Imodium Cap) 2 mg DAILY PO 02/04/17 08:00 03/06/17 07:59 02/04/17 08:52 2 MG Sodium Chloride (Sodium Chloride Tab) 2 gm BID PO 02/04/17 20:00 03/06/17 19:59 Impression (1) Hyponatremia (2) Colon carcinoma (3) Generalized weakness Recommendations HYPONATREMIA: -- Clinically euvolemic -- Urine osmolality is > 50 -- TSH is elevated. 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 Hyponatremia is relatively mild and asymptomatic. Will increase NaCl tablets to 2 g po BID -- Monitor serial PRP ONCOLOGY: -- Metastatic colon CA on Xeloda therapy OTHER: -- Patient was scheduled to see Dr. Newell as outpatient 02/06. Will ask office staff to reschedule appointment for 1 week.
[2017-02-04 11:42] VITALS: BP 97/62; PULSE 82; TEMP 36; O2SAT 96
[2017-02-04] MEDS: TAMSULOSIN HCL 0.4 MG CAP PO SCH (12:00)
--- NOTE | 2017-02-04 13:09 | Hospitalist Progress Note ---
Hospitalist Progress Note Date of Service Feb 04, 2017. (Brittany Reid .AMI) Subjective Pt evaluation today including: conversation w/ patient, conversation w/ family , physical exam, chart review, lab review, conversation w/ safety consultant, review of inpatient medication list Voiding: no voiding problems Mr. English feels overall pretty good today. He has been ambulating the halls with his daughter and does not feel weak. His appetite has had some improvement , he is drinking half of the boost being brought to him. He continues to have watery stools in his colostomy bag. He feels that he can get his stools to be less watery with his home diet, primarily by consuming things like cheese, and now that his appetite is starting to increase he can actually eat enough of these foods to do so. ROS Constitutional: no chills, aches, sweats or fever Respiratory: no sob,cough, sputum, or wheezing Cardiac: no chest pain, palpitations, edema, orthopnea or lightheadedness GI: no abdominal pain, nausea, vomiting, diarrhea or constipation : no dysuria or hesitancy Extremities: no joint pain or weakness Skin: no rash All Other Systems: Reviewed and Negative (Brittany Reid CRNP) Medications Medications (Trade) Dose Ordered Sig/Lenka Route Start Time Stop Time Status Last Admin Dose Admin Pantoprazole Sodium (Protonix Tab) 40 mg QPM PO 02/03/17 21:00 03/05/17 20:59 02/03/17 20:49 40 MG Sodium Chloride (Sodium Chloride Tab) 1 gm BID PO 02/03/17 20:00 02/04/17 09:32 DC 02/04/17 08:53 1 GM Aspirin (Ecotrin Tab) 81 mg DAILY PO 02/04/17 08:00 03/04/17 20:59 02/04/17 08:52 81 MG Levothyroxine Sodium (Synthroid Tab) 100 mcg DAILYBB PO 02/04/17 06:30 03/06/17 06:29 02/04/17 06:06 100 MCG Enteral Nutritional Formula (Boost) 1 can TID@1000,1400,1900 PO 02/03/17 19:00 03/05/17 18:59 02/04/17 08:53 1 CAN Loperamide HCl (Imodium Cap) 2 mg NOW STAT PO 02/03/17 19:55 02/03/17 19:58 DC 02/03/17 20:49 2 MG Loperamide HCl (Imodium Cap) 2 mg DAILY PO 02/04/17 08:00 03/06/17 07:59 02/04/17 08:52 2 MG Sodium Chloride (Sodium Chloride Tab) 1 gm NOW ONCE PO 02/04/17 09:30 02/04/17 09:35 DC 02/04/17 10:12 1 GM (Brittany Reid CRNP) Objective Vital Signs Date Time Temp Pulse Resp B/P (MAP) Pulse Ox O2 Delivery O2 Flow Rate FiO2 02/04/17 11:42 36.0 82 16 97/62 (74) 96 02/04/17 10:41 Room Air 02/04/17 07:37 36.4 76 16 99/62 (74) 99 99/63 (75) 94/62 (73) 02/04/17 00:30 Room Air 02/03/17 22:42 36.3 95 20 93/59 (70) 99 Room Air 02/03/17 16:00 Room Air 02/03/17 15:13 36.3 84 18 93/57 (69) 99 Room Air (Brittany Reid CRNP) Physical Exam Notes: General: no distress Eyes: normal inspection, PERLL Respiratory: chest non tender, clear to auscultation, normal breath sounds, no respiratory distress, no accessory muscle use Cardiac: regular rate and rhythm, no rub or gallop, no murmur, no edema, no jvd GI/: active bowel sounds, no abd pain or tenderness, soft, non distended Extremities: normal range of motion, normal strength, non tender Neuro/Psych: alert and oriented x 3, normal mood and affect Skin: normal color, dry (Brittany Reid CRNP) Laboratory Results Last 24 Hours Test 02/03/17 13:50 02/03/17 17:47 02/04/17 05:32 02/04/17 08:28 Urine Color DK YELLOW Urine Appearance CLEAR Urine pH 5.5 Urine Specific [place] 1.022 Urine Protein 1+ Urine Glucose (UA) NEG Urine Ketones TRACE Urine Occult Blood NEG Urine Nitrite NEG Urine Bilirubin NEG Urine Urobilinogen NEG Urine Leukocyte Esterase NEG Urine WBC (Auto) 1-5 /hpf Urine RBC (Auto) 0-4 /hpf Urine Hyaline Casts (Auto) 10-30 /lpf Urine Epithelial Cells (Auto) 10-20 /lpf Urine Bacteria (Auto) 1+ Urine Crystals CALCIUM OXALATE Urine Pathogenic Casts /lpf Urine Mucus PRESENT Urine Osmolality 556 mOms/kg Urine Random Sodium 7 mEq/L Urine Random Potassium 18.1 mEq/L Sodium Level 127 mmol/L 127 mmol/L Potassium Level 3.7 mmol/L 3.8 mmol/L Chloride Level 92 mmol/L 94 mmol/L Carbon Dioxide Level 27 mmol/L 27 mmol/L Anion Gap 8.0 mmol/L 6.0 mmol/L Blood Urea Nitrogen 15 mg/dl 15 mg/dl Creatinine 0.96 mg/dl 0.93 mg/dl Est Creatinine Clear Calc Drug Dose 37.0 ml/min 38.2 ml/min Estimated GFR () 85.0 88.3 Estimated GFR (Non- 73.3 76.2 BUN/Creatinine Ratio 15.5 15.9 Random Glucose 151 mg/dl 124 mg/dl Calcium Level 8.6 mg/dl 8.6 mg/dl White Blood Count 4.42 K/uL Red Blood Count 4.47 M/uL Hemoglobin 13.6 g/dL Hematocrit 40.7 % Mean Corpuscular Volume 91.1 fL Mean Corpuscular Hemoglobin 30.4 pg Mean Corpuscular Hemoglobin Concent 33.4 g/dl RDW Standard Deviation 71.9 fL RDW Coefficient of Variation 22.6 % Platelet Count 372 K/uL Mean Platelet Volume 9.5 fL Osmolality 272 mOsm/kg Thyroid Stimulating Hormone (TSH) 9.640 uIu/ml Vitamin B12 Level 1486 pg/mL 25-Hydroxy Vitamin D Total 27.6 ng/ml (Brittany Reid ., AMI) Assessment and Plan Mr. English is an 81 year old man here for hyponatremia / generalized weakness in the setting of colon cancer. Hyponatremia/failure to thrive/generalized fatigue - consulted nephrology - unclear whether this is SIADH or hyponatremia due to poor nutrition, sodium tab increased to 2g bid - TSH decreased to 9 after Synthroid increased to 100 mcg on 01/26, cortisol normal - appetite marginally improved with addition of Marinol - orthostatic vitals daily - does not appear orthostatic - Continue PT/OT - continue Imodium to attempt to reduce bowel losses - per nephrology, would like sodium to be 130 at discharge CAD - continue ASA Colon CA - continue to hold Xeloda for eye pain until restarted by Dr. Tolbert Hypothyroid - continue levothyroxine at 100 mcg and follow outpatient Sacrum stage II decubitus - consult wound care nurse - q2h turn and reposition BPH - continue Flomax DVT prophylaxis w low dose heparin (Brittany Reid, AMI) Reviewed: Pt Seen/Exam by Me (Wendy Hobbs MD) History [employer] Supervision Note: I interviewed and examined the patient. Discussed with AMI Reid and agree with findings and plan as documented in the note. Any exceptions or clarifications are listed here: Output in ileostomy bag is less since starting Imodium. Has c/o left great toe pain x 2 weeks, not improving. Feels a bit stronger today Vitals reviewed, low normal BPs improved from previous AAOx3, NAD RRR no mgr CTAB no wcr Abd +BS sof Laz, ileostomy bag with small amount of liquid stool and gas Ext no edema, Left great toe with +erythema,edema, skin sloughed off, ingrown toenail on medial and lateral portions, +exquisite +TTP over toe, all other toes with mild sloughing of skin but no erythema or tenderness 81 yo male here for readmission again for hyponatremia, with h/o colon CA s/p diverting ileostomy and on Xeloda for chemo. Ur Osm 556, Ur Na+7, with high output from ostomy bag and appears dehydrated on exam--> Hypotonic hyponatremia with hypovolemia vs SIADH. Less ostomy output since starting Imodium. Na+ remains stable at 127 today -continue salt tabs and increased to 2 grams bid as per Nephrology today -GI suggested Imodium in consultation in 09/2016 for high output ostomy--> continue this once daily -Great toe ingrown toenail and soft tissue infection---> will consult Podiatry to see about need for toenail removal. Will start po clinda 300mg tid x 7 day course, will need warm soaks if no surgery felt indicated by Podiatry- Appreciate recommendations Documented By: Wendy Hobbs (Wendy Hobbs MD)
[2017-02-04 15:26] VITALS: BP 97/59; PULSE 77; TEMP 36.4; O2SAT 99
[2017-02-04] MEDS ORDERED: CLINDAMYCIN HCL 150 MG CAP PO ONE (15:30)
--- NOTE | 2017-02-04 16:43 | CONSULTATION REPORT ---
DATE OF CONSULTATION: 02/04/2017 DATE OF CONSULTATION: 02/04/2017 HISTORY OF PRESENT ILLNESS: An 81-year-old male admitted on the for generalized weakness receiving colon cancer treatments and hyponatremia. He has been having problems with his left second digit for the past few weeks with increasing pain, unable to cut the nail himself with redness and drainage. PAST MEDICAL HISTORY: Colon cancer, CAD, hypercholesterolemia, hypertension, kidney stones, small bladder obstruction, vertigo, RI. MEDICATIONS: Per chart. ALLERGIES: PER CHART WITH ALLERGIES CEPHALOSPORINS, CLINDAMYCIN, CODEINE, DILTIAZEM, MORPHINE, PENICILLIN, STREPTOKINASE. SOCIAL HISTORY: The patient lives at home with his . FAMILY HISTORY: Cancer, diabetes, kidney stones, kidney disease. LOWER EXTREMITY PHYSICAL EXAMINATION: DP palpable. PT palpable. Focal swelling noted of left hallux nail. Absence of digital hairs noted. Focal swelling is noted around the left hallux nail. DERMATOLOGIC: The left hallux is erythematous, mild drainage noted along the medial borders, severe incurvation medial and lateral borders of the left hallux nail. Nails 1 through 5 are elongated and mycotic. NEUROLOGIC: Epicritic sensation grossly intact. MUSCULOSKELETAL: ____. IMPRESSION: 1. Pain left hallux nail. 2. Cellulitis, left hallux. 3. Paronychia, left hallux. 4. History of colon cancer on chemotherapy drugs. TREATMENT: Partial nail avulsion was performed, local field block was performed with 3 mL of lidocaine to the left hallux nail. Nail splitter was used to avulse the medial and lateral borders of the left hallux nail down to the eponychium. Neosporin ointment and dry sterile dressing was applied. Recommended Epsom Salt soaks, continue clindamycin for 7 days. Continue local supportive care. Trimmed nails 1 through 5 bilaterally. Reconsult if needed.
[2017-02-04 16:48] LABS: CALCIUM 8.1 mg/dl (8.5-10.1); CREATININE 0.89 mg/dl (0.60-1.40); POTASSIUM 3.7 mmol/L (3.5-5.1)
--- NOTE | 2017-02-04 19:41 | DIAGNOSTIC IMAGING REPORT ---
LEFT FIRST TOE 3 VIEWS CLINICAL HISTORY: Erythema and swelling. FINDINGS: 3 views of the left first toe are obtained. No prior studies are available for comparison at the time of dictation. The skeletal structures are osteopenic. No fracture is seen. Arthritic change is present at the first metatarsophalangeal joint. No bony erosion or periostitis is identified. Soft tissue swelling is present in the first toe. No radiodense foreign body is seen. There is advanced atherosclerotic calcification of the regional arteries. IMPRESSION: 1. Soft tissue edema is present in the first toe. No acute bony abnormality is identified. 2. Osteopenia and arthritic change as above. Electronically signed by: Levy Mcgowan M.D. 02/04/2017 7:39 PM Dictated Date/Time: 02/04/2017 7:38 PM
[2017-02-04] MEDS: PANTOprazole SOD 40 MG TAB PO SCH (20:51)
[2017-02-04] MEDS: SIMVASTATIN 40 MG TAB PO SCH (20:51)
[2017-02-04] MEDS: CLINDAMYCIN HCL 150 MG CAP PO SCH (20:53)
[2017-02-04] MEDS: ONDANSETRON 8 MG TAB PO PRN (22:01)
[2017-02-04 23:06] VITALS: BP 94/52; PULSE 74; TEMP 36.6; O2SAT 98
[2017-02-05] MEDS: HEPARIN SOD 5000 UNIT/0.5 ML CARP SQ SCH ×2 (05:44→05:55)
[2017-02-05 06:46] LABS: BUN/CREATININE RATIO 16.8 (10-20); CALCIUM 8.4 mg/dl (8.5-10.1); CREATININE 0.85 mg/dl (0.60-1.40); POTASSIUM 4.2 mmol/L (3.5-5.1)
[2017-02-05 07:28] VITALS: BP 100/62; PULSE 69; TEMP 36.6; O2SAT 99
[2017-02-05] MEDS: ONDANSETRON 8 MG TAB PO PRN (07:42)
[2017-02-05] MEDS: CLINDAMYCIN HCL 150 MG CAP PO SCH ×2 (08:33→10:14)
[2017-02-05] MEDS: MAGNESIUM OXIDE 400 MG TAB PO SCH ×2 (08:34→10:13)
[2017-02-05] MEDS: FERROUS SULFATE 325 MG TAB PO SCH ×2 (08:34→10:13)
[2017-02-05] MEDS: ASPIRIN 81 MG ECTAB PO SCH ×2 (08:34→10:13)
[2017-02-05] MEDS: LEVOTHYROXINE 100 MCG TAB PO SCH ×2 (08:34→10:14)
[2017-02-05] MEDS: DRONABINOL 2.5 MG CAP PO SCH ×2 (08:34→10:14)
[2017-02-05] MEDS: LOPERAMIDE HCL 2 MG CAP PO SCH ×2 (08:34→10:13)
[2017-02-05] MEDS: BOOST VANILLA PO SCH ×2 (08:35)
[2017-02-05] MEDS: SODIUM CHLORIDE 1 GM TAB PO SCH ×2 (08:35→10:14)
[2017-02-05] MEDS ORDERED: SYN100 PO (10:16)
[2017-02-05] MEDS ORDERED: CLC150 PO (10:16)
[2017-02-05] MEDS ORDERED: SDMC1 PO (10:16)
--- NOTE | 2017-02-05 10:19 | Nephrology Progress Note ---
Nephrology Progress Note Date of Service Feb 05, 2017. Chief Complaint Hyponatremia Subjective Mr. English was seen & examined in his hospital room this morning. He is tolerating oral NaCl tablets without GI upset. He did well with physical therapy yesterday. He is hoping to return home soon. Review of Systems Constitutional: No fever Cardiovascular: No chest pain Respiratory: No dyspnea at rest Abdomen: No pain, No nausea, No vomiting Extremities: No leg edema A complete review of systems was performed. Pertinent positives are noted above. All other systems are negative. Vital Signs Last 8 Hrs Date Time Temp Pulse Resp B/P (MAP) Pulse Ox O2 Delivery O2 Flow Rate FiO2 02/05/17 07:28 36.6 69 18 100/62 (75) 99 Room Air 69 Last Recorded Weight Weight (Kilograms): 44.100 Physical Exam General Appearance: no apparent distress Head: atraumatic (temporal muscle wasting) Eyes: PERRL, EOMI Neck: no adenopathy Respiratory/Chest: lungs clear, no respiratory distress Cardiovascular: regular rate, rhythm Abdomen/GI: normal bowel sounds, non tender, soft Extremities/Musculoskelatal: no pedal edema Neurologic/Psych: alert, oriented x 3 Family History Cancer Diabetes mellitus FHx: heart disease FHx: kidney disease/stones Negative for CKD/ESRD Social History Smoking Status: Never smoker Drug Use: none Marital Status: Housing Status: lives with significant other Occupation: retired , retired, former smoker Laboratory Results Past 24 Hours 02/04/17 16:07 02/05/17 05:55 Test 02/04/17 16:07 02/05/17 01:51 02/05/17 05:55 Anion Gap 9.0 mmol/L (3-11) 8.0 mmol/L (3-11) Est Creatinine Clear Calc Drug Dose 39.9 ml/min 41.8 ml/min Estimated GFR () 92.3 94.0 Estimated GFR (Non- 79.6 81.1 BUN/Creatinine Ratio 16.0 (10-20) 16.8 (10-20) Calcium Level 8.1 mg/dl (8.5-10.1) 8.4 mg/dl (8.5-10.1) Urine Osmolality 609 mOms/kg (500-800) Allergies Coded Allergies: Clarithromycin (Verified Allergy, Severe, "MAJOR RXN" ?, 02/02/17) Penicillins (Verified Allergy, Severe, "MAJOR RXN" ?, 02/02/17) Sulfa Antibiotics (Verified Allergy, Severe, "SULFA DRUGS": "MAJOR RXN"?, 02/02/17) Sulfonylureas (Verified Allergy, Intermediate, RASH, 02/03/17) Cephalosporins (Verified Allergy, Unknown, ?, 02/02/17) Streptokinase (Verified Allergy, Unknown, ?, 02/02/17) Codeine (Verified Adverse Reaction, Mild, NAUSEA / VOMITING, 02/02/17) Diltiazem (Verified Adverse Reaction, Mild, FLUSHING, 02/03/17) Morphine (Verified Adverse Reaction, Mild, N/V, 02/03/17) Medications Current Inpatient Medications Medications (Trade) Dose Ordered Sig/Lenka Route Start Time Stop Time Status Last Admin Dose Admin Ferrous Sulfate (Feosol Tab) 325 mg BIDM PO 02/02/17 17:32 03/04/17 17:59 02/05/17 10:13 325 MG Magnesium Oxide (Mag-Ox Tab) 400 mg DAILY PO 02/03/17 08:00 03/05/17 08:59 02/05/17 10:13 400 MG Nitroglycerin (Nitrostat Tab) 0.4 mg PRN UT 02/02/17 16:45 03/04/17 16:44 Ondansetron HCl (Zofran Tab) 8 mg Q8 PRN PO 02/02/17 16:45 03/04/17 16:44 02/05/17 07:42 8 MG Simvastatin (Zocor Tab) 40 mg QPM PO 02/02/17 21:00 03/04/17 20:59 02/04/17 20:51 40 MG Tamsulosin HCl (Flomax Cap) 0.4 mg DAILY@1200 PO 02/03/17 12:00 03/05/17 11:59 02/04/17 12:00 0.4 MG Loperamide HCl (Imodium Cap) 2 mg Q6H PRN PO 02/02/17 16:45 03/04/17 16:44 02/04/17 20:51 2 MG Acetaminophen (Tylenol Tab) 650 mg Q4H PRN PO 02/02/17 16:45 1/24/18 16:44 Al Hydrox/Mg Hydrox/Simethicone (Maalox Max Susp) 15 ml Q4H PRN PO 02/02/17 16:45 03/04/17 16:44 02/03/17 16:24 15 ML Magnesium Hydroxide (Milk Of Magnesia Susp) 30 ml Q6H PRN PO 02/02/17 16:45 03/04/17 16:44 Polyethylene (Miralax Powder Packet) 17 gm DAILY PRN PO 02/02/17 16:45 03/04/17 16:44 Zolpidem Tartrate (Ambien Tab) 5 mg HSZ PRN PO 02/02/17 16:45 03/04/17 16:44 Ondansetron HCl (Zofran Inj) 4 mg Q6H PRN IV 02/02/17 16:45 03/04/17 16:44 Heparin Sodium (Porcine) (Heparin Sq 5000 Unit/0.5ml) 5,000 unit Q12H SQ 02/02/17 18:30 03/04/17 18:29 02/04/17 19:14 5,000 UNIT Dronabinol (Marinol Cap) 2.5 mg BID PO 02/02/17 21:00 03/04/17 20:59 02/05/17 10:14 2.5 MG Pantoprazole Sodium (Protonix Tab) 40 mg QPM PO 02/03/17 21:00 03/05/17 20:59 02/04/17 20:51 40 MG Aspirin (Ecotrin Tab) 81 mg DAILY PO 02/04/17 08:00 03/04/17 20:59 02/05/17 10:13 81 MG Levothyroxine Sodium (Synthroid Tab) 100 mcg DAILYBB PO 02/04/17 06:30 03/06/17 06:29 02/05/17 10:14 100 MCG Enteral Nutritional Formula (Boost) 1 can TID@1000,1400,1900 PO 02/03/17 19:00 03/05/17 18:59 02/05/17 08:35 1 CAN Loperamide HCl (Imodium Cap) 2 mg DAILY PO 02/04/17 08:00 03/06/17 07:59 02/05/17 10:13 2 MG Sodium Chloride (Sodium Chloride Tab) 2 gm BID PO 02/04/17 20:00 03/06/17 19:59 02/05/17 10:14 2 GM Clindamycin HCl (Cleocin Cap) 300 mg Q8 PO 02/04/17 22:00 02/14/17 21:59 02/05/17 10:14 300 MG Impression (1) Hyponatremia (2) Colon carcinoma (3) Generalized weakness Recommendations HYPONATREMIA: -- Clinically euvolemic -- Urine osmolality is > 50 -- TSH is elevated. 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 Hyponatremia is relatively mild and asymptomatic. -- Serum sodium is trending up with oral NaCl tablets. Continue NaCl 2 g po BID ONCOLOGY: -- Metastatic colon CA on Xeloda therapy OTHER: -- If discharge is anticipated please advise patient to follow up w/ Dr. Newell next week ([phone]). Orders have been placed in [facility] EMR to have nonfasting blood and urine studies completed 24 hours prior to his office visit.
--- NOTE | 2017-02-05 10:23 | Discharge Instructions ---
Discharge Instructions Date of Service Feb 05, 2017. Admission Reason for Admission: Hyponatremia Discharge Discharge Diagnosis / Problem: hyponatremia Discharge Goals Goal(s): Improve disease control Activity Recommendations Activity Limitations: resume your previous activity . Instructions / Follow-Up Instructions / Follow-Up For ingrown toenail - 7 day course of clindamycin, epsom salt soaks, follow up with Podiatry Dr. Ana Banda as needed Continue taking 2 gm sodium tablets twice per day regardless of your home diet. Have your blood and urine work drawn on Thursday before your nephrology visit. Continue taking Imodium once daily every day to reduce the amount of output in your ileostomy bag. Discuss continuation of Marinol with Dr. Tolbert and make follow up with her within about a week Current Hospital Diet Patient's current hospital diet: Regular Diet Discharge Diet Recommended Diet: Regular Diet Procedures Procedures Performed: Toe x-ray, partial nail avulsion Pending Studies Studies pending at discharge: no Laboratory Results Hemoglobin A1c Test 11/30/16 05:04 Range/Units Estimated Average Glucose 126 mg/dl Hemoglobin A1c 6.0 H 4.5-5.6 % Lipid Panel Test 01/05/17 10:32 Range/Units Triglycerides Level 87 0-150 mg/dl Cholesterol Level 136 0-200 mg/dl HDL Cholesterol 65 mg/dl Cholesterol/HDL Ratio 2.1 LDL Cholesterol, Calculated 54 mg/dl Medical Emergencies . Who to Call and When: Medical Emergencies: If at any time you feel your situation is an emergency, please call 911 immediately. . Non-Emergent Contact Non-Emergency issues call your: Primary Care Provider, Oncologist Call Non-Emergent contact if: you have a fever, your pain is not controlled, your pain is worsening, your pain is unusual for you, your pain is concerning you, you have any medication questions . Past History Medical & Surgical History: (1) Generalized weakness (2) Colon carcinoma (3) Ingrown nail of great toe of left foot (4) Hypothyroidism . "Provider Documentation" section prepared by Brittany Reid. . VTE Core Measure Inpt VTE Proph given/why not?: Unfractionated heparin SQ
[2017-02-05 11:54] VITALS: BP 100/62; PULSE 69; TEMP 36.6; O2SAT 99
[2017-02-05] MEDS ORDERED: ASPEC81 PO (11:55)
[2017-02-05] MEDS ORDERED: NUTR-7 PO (11:55)
[2017-02-05] MEDS ORDERED: [UNRECOGNIZED DRUG - CODE] PO (11:55)
[2017-02-05] MEDS: TAMSULOSIN HCL 0.4 MG CAP PO SCH (12:21)
--- NOTE | 2017-02-05 16:09 | Discharge Summary ---
Discharge Summary Date of Service Feb 05, 2017. Discharge Summary Admission Date: Feb 02, 2017 at 16:55 Discharge Date: Feb 05, 2017 Discharge Disposition: Home Principal Diagnosis: Hyponatremia Problems/Secondary Diagnoses: Ingrown left great toenail Metastatic Colon Ca CAD HTN Hypothyroidism Sacrum stage II decubitus BPH High output ileostomy Immunizations: Have You Had Influenza Vaccine: Yes Influenza Vaccine Date: Nov 03, 2012 History of Tetanus Vaccine?: UTD History of Pneumococcal: Yes History of Hepatitis B Vaccine: Unknown Procedures: Partial nail avulsion left great toe 02/04 LEFT FIRST TOE 3 VIEWS CLINICAL HISTORY: Erythema and swelling. FINDINGS: 3 views of the left first toe are obtained. No prior studies are available for comparison at the time of dictation. The skeletal structures are osteopenic. No fracture is seen. Arthritic change is present at the first metatarsophalangeal joint. No bony erosion or periostitis is identified. Soft tissue swelling is present in the first toe. No radiodense foreign body is seen. There is advanced atherosclerotic calcification of the regional arteries. IMPRESSION: 1. Soft tissue edema is present in the first toe. No acute bony abnormality is identified. 2. Osteopenia and arthritic change as above. Consultations: Podiatry - Dr. Banda Nephrology - Dr. Perez Medication Reconciliation New Medications: Aspirin (Aspirin EC Low Dose) 81 Mg Ectab 81 MG PO DAILY for 30 Days Clindamycin HCl (Clindamycin HCl) 150 Mg Cap 300 MG PO Q8 for 7 Days, #38 CAP Levothyroxine Sodium (Synthroid) 100 Mcg Tab 100 MCG PO DAILYBB for 30 Days, #30 TAB Sodium Chloride (Sodium Chloride) 1 Gm Tab 2 GM PO BID for 30 Days, #120 TAB Changed Medications: Loperamide Hcl (Loperamide Hcl) 1 Mg/7.5 Ml Eli 2 MG PO DAILY for 30 Days (Changed from: Q6H; Removed Reason) Nutritional Supplements (Boost) 1 Liq Liq 1 CAN PO TID for 30 Days (Changed from: DAILY) Continued Medications: Ferrous Sulfate (Ferrous Sulfate) 325 Mg Tab 325 MG PO BIDM for 30 Days, #60 TAB Take to restore blood count Magnesium Oxide (Mag-Ox) 400 Mg Tab 400 MG PO DAILY, TAB Nitroglycerin (Nitrostat) 0.4 Mg Tab 0.4 MG UT PRN Omeprazole (Prilosec) 20 Mg Capcr 20 MG PO QPM, CAP Ondansetron Hcl (Zofran) 8 Mg Tab 8 MG PO Q8 PRN for Nausea, TAB MUST TAKE BEFORE TAKING CHEMO MED Simvastatin (Zocor) 40 Mg Tab 40 MG PO QPM Tamsulosin Hcl (Flomax) 0.4 Mg Cap 0.4 MG PO NOON, CAP Discontinued Medications: Aspirin Buffered (Marvin Carb-Mag (Tri-Buffered Aspirin) 1 Tab Tab 81 MG PO BID for 45 Days, #90 TAB Take to prevent blood clots. Levothyroxine Sodium (Synthroid) 75 Mcg Tab 75 MG PO QAM Discharge Exam ROS Constitutional: no chills, aches, sweats or fever Respiratory: no sob,cough, sputum, or wheezing Cardiac: no chest pain, palpitations, edema, orthopnea or lightheadedness GI: no abdominal pain, nausea, vomiting, less output from ileostomy but still loose/watery : no dysuria or hesitancy Extremities: no joint pain or weakness, mild tenderness left great toe Skin: no rash PE General: no distress Eyes: normal inspection, PERLL Respiratory: chest non tender, clear to auscultation, normal breath sounds, no respiratory distress, no accessory muscle use Cardiac: regular rate and rhythm, no rub or gallop, no murmur, no edema, no jvd GI/: active bowel sounds, no abd pain or tenderness, soft, non distended Extremities: normal range of motion, normal strength, non tender Neuro/Psych: alert and oriented x 3, normal mood and affect Skin: normal color, dry Hospital Course Mr. English was readmitted and discharged from the hospital twice within the last 2 weeks. He has been treated for hyponatremia. He was supposed to be on salt tablets at home, however it appears he may only have been taking them when his po intake was low. Conservative management failed to control his fatigue and weakness symptoms. He has history of recurrent colon cancer, started Xeloda (chemo) which is currently on hold due to sore eyes, weakness and hyponatremia. He also had an increased output in his iliostomy which improves with fiber intake when his po intake is better, but he has had poor appetite for many weeks now. Hyponatremia/failure to thrive/generalized fatigue - consulted nephrology - unclear whether this is SIADH due to cancer or hyponatremia due to poor nutrition, sodium tab increased to 2g bid - Na 129 upon discharge - TSH decreased to 9 after Synthroid increased to 100 mcg on 01/26, cortisol normal - appetite marginally improved with addition of Marinol - this will be managed by oncology outpatient - orthostatic vitals daily - does not appear orthostatic - PT/OT - patient tolerated well and no recommendations for further therapy outpatient were made - continue Imodium to attempt to reduce bowel losses - patient will recheck his sodium prior to nephrology visit next week - As long as the patient is not symptomatic, the hyponatremia should be managed outpatient. CAD - continue ASA Colon CA - continue to hold Xeloda for eye pain until restarted by Dr. Tolbert Hypothyroid - continue levothyroxine at 100 mcg and follow outpatient - TSH should be repeated in 2-3 weeks Sacrum stage II decubitus - consulted wound care nurse - stoma powder and aloe vesta - q2h turn and reposition BPH - continued Flomax Total Time Spent: Greater than 30 minutes This includes examination of the patient, discharge planning, medication reconciliation, and communication with other providers. Discharge Instructions Please refer to the electronic Patient Visit Report (Discharge Instructions) for additional information. Follow-Up Dr. Roijas on ThursdayFebruary 10 at 2:[address] Newell (kidney doctor) on ThursdayFebruary 13 at 2:[address] Tolbert within a week or so. Additional Copies To José Miguel Tolbert MD Reviewed: Pt Seen/Exam by Me History GAME MANAGER Supervision Note: I interviewed and examined the patient. Discussed with AMI Reid and agree with findings and plan as documented in the note. Any exceptions or clarifications are listed here: Feeling better, left great toe less painful, output less and thicker in ileostomy bag, sodium improved. Vitals reviewed, low normal BPs improved from previous AAOx3, NAD RRR no mgr CTAB no wcr Abd +BS soft NT, ileostomy bag with small amount of liquid stool and gas Ext no edema, Left great toe with less erythema,less edema, toenail with partial avulsion bilaterally on medial and lateral portions, not tender to palpation 81 yo male here for readmission again for hyponatremia, with h/o colon CA s/p diverting ileostomy and on Xeloda for chemo. Ur Osm 556, Ur Na+7, with high output from ostomy bag and appears dehydrated on exam--> Hypotonic hyponatremia with hypovolemia vs SIADH. Less ostomy output since starting Imodium. Na+ improving to 129 on day of discharge. -continue salt tabs and increased to 2 grams bid as per Nephrology -Continue Imodium daily for high output ostomy--> continue this once daily -Great toe ingrown toenail and soft tissue infection---> now status post partial nail avulsion. Finish out po clinda 300mg tid x 7 day course, will need warm soaks and can follow up with podiatry as needed
== END 2017-02-05 13:02 | disposition home or self-care (01) | DRG 641 ==
LOC: C.EDB 13:30 → C.4E 16:55 → ENRESERV 16:58
PROVIDERS: ADMIT Internal Medicine; ATTEND Family Medicine
PROC: 0HDRXZZ Extraction of Toe Nail, External Approach (ICD-10-PCS; principal; 2017-02-04)
DX: E87.1 Hypo-osmolality and hyponatremia (principal); E86.0 Dehydration; L03.116 Cellulitis of left lower limb; E78.5 Hyperlipidemia, unspecified; I10 Essential (primary) hypertension; I25.2 Old myocardial infarction; Z88.0 Allergy status to penicillin; Z88.2 Allergy status to sulfonamides; I25.10 Atherosclerotic heart disease of native coronary artery without angina pectoris; R62.7 Adult failure to thrive; L89.152 Pressure ulcer of sacral region, stage 2; N40.0 Benign prostatic hyperplasia without lower urinary tract symptoms; L60.0 Ingrowing nail; E03.9 Hypothyroidism, unspecified; Z93.2 Ileostomy status; Z79.82 Long term (current) use of aspirin; Z87.891 Personal history of nicotine dependence; Z85.038 Personal history of other malignant neoplasm of large intestine

== ENCOUNTER → 2017-02-10 | Outpatient (CLI) | payer OTHER ==
[~2017-02-10] MED LIST changes: +ASPEC81 PO; -ASPI325T60 PO; +CLC150 PO; +SDMC1 PO; +SYN100 PO; -SYN75 PO
[2017-02-10 14:35] LABS: HEMATOCRIT 38.7 % (42-52); HEMOGLOBIN 12.8 g/dL (14.0-18.0); MEAN CELL VOLUME 92.6 fL (80-100); MEAN CORPUSCULAR HEMOGLOBIN 30.6 pg (25-34); MEAN CORPUSCULAR HGB CONC 33.1 g/dl (32-36); MEAN PLATELET VOLUME 10.4 fL (7.4-10.4); PLATELET COUNT 327 K/uL (130-400); RED CELL DISTRIBUTION WIDTH SD 76.6 fL (36.4-46.3); WHITE BLOOD COUNT 9.86 K/uL (4.8-10.8)
[2017-02-10 15:46] LABS: ALBUMIN 2.8 gm/dl (3.4-5.0); BLOOD UREA NITROGEN 19 mg/dl (7-18); CALCIUM 8.6 mg/dl (8.5-10.1); CARBON DIOXIDE 19 mmol/L (21-32); CREATININE 1.15 mg/dl (0.60-1.40); GLUCOSE 165 mg/dl (70-99); POTASSIUM 4.2 mmol/L (3.5-5.1); SODIUM 130 mmol/L (136-145)
[2017-02-10 15:49] LABS: PHOSPHORUS 3.2 mg/dl (2.5-4.9)
[2017-02-11 15:16] LABS: SODIUM RANDOM URINE 10 mEq/L
[2017-02-11 20:01] LABS: OSMOLALITY,URINE 616 mOms/kg (500-800)
== END | disposition home or self-care (01) ==
LOC: C.LAB1850 13:04
PROVIDERS: ATTEND Internal Medicine Nephrology
DX: E83.42 Hypomagnesemia (principal); I10 Essential (primary) hypertension; E87.1 Hypo-osmolality and hyponatremia

== ENCOUNTER → 2017-03-02 | Outpatient (CLI) | payer OTHER ==
[2017-03-02 13:57] LABS: ALBUMIN 2.7 gm/dl (3.4-5.0); BLOOD UREA NITROGEN 13 mg/dl (7-18); CALCIUM 8.8 mg/dl (8.5-10.1); CARBON DIOXIDE 29 mmol/L (21-32); CREATININE 0.76 mg/dl (0.60-1.40); GLUCOSE 131 mg/dl (70-99); PHOSPHORUS 3.1 mg/dl (2.5-4.9); POTASSIUM 4.3 mmol/L (3.5-5.1); SODIUM 134 mmol/L (136-145)
== END | disposition home or self-care (01) ==
LOC: C.LAB1850 10:37
PROVIDERS: ATTEND Internal Medicine Nephrology
DX: M79.89 Other specified soft tissue disorders (principal); E87.1 Hypo-osmolality and hyponatremia; E83.42 Hypomagnesemia

== ENCOUNTER → 2017-03-24 | Outpatient (CLI) | payer OTHER ==
--- NOTE | 2017-03-24 17:19 | DIAGNOSTIC IMAGING REPORT ---
L PELVIS/UNILATERAL HIP 2-3VIEWS CLINICAL HISTORY: 81 years-old Male presenting with JOINT PAIN, HIP ([id number])([id number]). TECHNIQUE: Single frontal view the pelvis and frontal and frog-leg lateral views of the left hip were obtained. COMPARISON: 11/29/2016. FINDINGS: Osteopenia. There has been interval total right hip arthroplasty. The acetabular component of the right hip may be within the expected range of normal. No gross malalignment of the femoral component. Sacroiliac joints and pubic symphysis congruent. Left hip joint congruent. Allowing for osteopenia, no gross evidence of a displaced pelvic fracture. No left femoral neck fracture. No advanced degenerative change of the left hip. Atherosclerosis. Hyperdensity in the pelvis could relate to extensive pelvic phleboliths or calcification in the left seminal vesicle. Hyperdensity in the bowel likely relates to medication menstruation. Moderate stool burden noted. IMPRESSION: 1. Osteopenia, which limits evaluation for nondisplaced fracture. 2. No advanced degenerative change or acute osseous injury of the left hip. 3. No acute osseous injury of the pelvis. 4. Total right hip arthroplasty. Electronically signed by: Juwan Dodge M.D. 03/24/2017 5:18 PM Dictated Date/Time: 03/24/2017 5:16 PM
== END | disposition home or self-care (01) ==
LOC: C.RAD1850 15:28
PROVIDERS: ATTEND Internal Medicine
DX: M25.559 Pain in unspecified hip (principal)

== ENCOUNTER → 2017-03-25 | Outpatient (CLI) | payer OTHER ==
[2017-03-25 12:19] LABS: BASO % 0.2 %; BASO ABS # 0.02 K/uL (0-0.2); EOS % 0.7 %; EOS ABS # 0.06 K/uL (0-0.5); HEMATOCRIT 30.6 % (42-52); HEMOGLOBIN 9.8 g/dL (14.0-18.0); IG# 0.01 K/uL (0.00-0.02); LYMPH % 29.5 %; LYMPH ABS # 2.38 K/uL (1.2-3.4); MEAN CELL VOLUME 88.7 fL (80-100); MEAN CORPUSCULAR HEMOGLOBIN 28.4 pg (25-34); MEAN PLATELET VOLUME 9.5 fL (7.4-10.4); MONO % 9.2 %; MONO ABS # 0.74 K/uL (0.11-0.59); NEUT % 60.3 %; NEUT ABS # 4.87 K/uL (1.4-6.5); PLATELET COUNT 379 K/uL (130-400); RED CELL DISTRIBUTION WIDTH CV 18.5 % (11.5-14.5); RED CELL DISTRIBUTION WIDTH SD 58.5 fL (36.4-46.3); WHITE BLOOD COUNT 8.08 K/uL (4.8-10.8)
[2017-03-25 12:51] LABS: ALBUMIN 2.7 gm/dl (3.4-5.0); ALT/SGPT 15 U/L (12-78); AST/SGOT 18 U/L (15-37); BLOOD UREA NITROGEN 21 mg/dl (7-18); CALCIUM 8.7 mg/dl (8.5-10.1); CARBON DIOXIDE 25 mmol/L (21-32); CREATININE 0.81 mg/dl (0.60-1.40); GLUCOSE 164 mg/dl (70-99); POTASSIUM 4.6 mmol/L (3.5-5.1); SODIUM 134 mmol/L (136-145)
[2017-03-25 12:55] LABS: ALKALINE PHOSPHATASE 82 U/L (45-117); TOTAL PROTEIN 7.3 gm/dl (6.4-8.2)
== END | disposition home or self-care (01) ==
LOC: C.LAB1850 11:04
PROVIDERS: ATTEND Internal Medicine Hematology & Oncology
DX: C18.7 Malignant neoplasm of sigmoid colon (principal); C78.7 Secondary malignant neoplasm of liver and intrahepatic bile duct

== ENCOUNTER → 2017-04-02 | Outpatient (CLI) | payer OTHER ==
[~2017-04-02] MED LIST changes: +CAPE1TAB3 PO; +DRON2.5C10 PO; +LEVO112T4 PO; +LEVO1TAB33 PO; +ONDA-170 PO; -ONDA8TAB6 PO
[2017-04-02 12:22] LABS: BASO % 0.1 %; BASO ABS # 0.01 K/uL (0-0.2); EOS % 0.6 %; EOS ABS # 0.05 K/uL (0-0.5); HEMATOCRIT 30.8 % (42-52); HEMOGLOBIN 10.1 g/dL (14.0-18.0); IG# 0.02 K/uL (0.00-0.02); LYMPH % 33.6 %; LYMPH ABS # 2.74 K/uL (1.2-3.4); MEAN CELL VOLUME 86.5 fL (80-100); MEAN CORPUSCULAR HEMOGLOBIN 28.4 pg (25-34); MEAN CORPUSCULAR HGB CONC 32.8 g/dl (32-36); MEAN PLATELET VOLUME 10.1 fL (7.4-10.4); MONO % 9.7 %; MONO ABS # 0.79 K/uL (0.11-0.59); NEUT % 55.8 %; NEUT ABS # 4.54 K/uL (1.4-6.5); PLATELET COUNT 419 K/uL (130-400); RED CELL DISTRIBUTION WIDTH CV 18.7 % (11.5-14.5); RED CELL DISTRIBUTION WIDTH SD 56.7 fL (36.4-46.3); WHITE BLOOD COUNT 8.15 K/uL (4.8-10.8)
[2017-04-02 12:28] LABS: ALT/SGPT 20 U/L (12-78); BLOOD UREA NITROGEN 29 mg/dl (7-18); CALCIUM 8.8 mg/dl (8.5-10.1); CARBON DIOXIDE 24 mmol/L (21-32); CREATININE 0.93 mg/dl (0.60-1.40); GLUCOSE 103 mg/dl (70-99); POTASSIUM 4.5 mmol/L (3.5-5.1); SODIUM 134 mmol/L (136-145)
[2017-04-02 12:31] LABS: ALKALINE PHOSPHATASE 79 U/L (45-117); AST/SGOT 23 U/L (15-37); TOTAL PROTEIN 7.3 gm/dl (6.4-8.2)
[2017-04-02 12:54] LABS: PHOSPHORUS 3.6 mg/dl (2.5-4.9)
== END | disposition home or self-care (01) ==
LOC: C.LAB1850 10:02
PROVIDERS: ATTEND Internal Medicine Nephrology
DX: E83.42 Hypomagnesemia (principal); E03.9 Hypothyroidism, unspecified; C18.7 Malignant neoplasm of sigmoid colon

== ENCOUNTER 2017-04-14 15:00 | Emergency (ER) | payer OTHER ==
[~2017-04-14] VITALS: Ht 165.1 cm; Wt 59.0 kg
[~2017-04-14 15:00] MED LIST changes: -CAPE1TAB3 PO; -DRON2.5C10 PO; -LEVO112T4 PO; -LEVO1TAB33 PO; -MAGN400T6 PO; -NTRGSL/4 UT; -ONDA-170 PO; -PRLSR20 PO; -SIMV40TA2 PO
[2017-04-14] MEDS ORDERED: NTRGSL/4 UT (15:02)
[2017-04-14] MEDS ORDERED: SIMV40TA2 PO (15:02)
[2017-04-14 15:13] VITALS: TEMP 36.6; Ht 165.1 cm; Wt 59.0 kg
[2017-04-14] MEDS ORDERED: ACETAMINOPHEN 500 MG TAB PO STA (15:29)
--- NOTE | 2017-04-14 15:35 | EMERGENCY ROOM VISIT NOTE ---
ED Visit Note First contact with patient: 15:16 CHIEF COMPLAINT: back pain HISTORY OF PRESENT ILLNESS: This 81-year-old male patient presents to the emergency department, ambulatory, with his , complaining of pain in the bilateral posterior mid-upper ribs after lifting a 50 pound mign into the back of the van, over the back seat with his . He states he immediately began experiencing a pulling sensation in the back while lifting the ming. The episode occurred approximately 3 hours ago. He denies falling. There is increased pain with deep breathing or coughing. Attempting to sit up from a lying position is painful. Denies shortness of breath or coughing up blood. The patient rates the pain as sharp and 10/10. The patient has taken nothing for relief of the pain, but does request Tylenol. Previous fracture to an unknown rib. The patient denies any other injury. The patient denies any abdominal pain, nausea, or vomiting. REVIEW OF SYSTEMS: A 6 system review of systems was completed with positives and pertinent negatives listed in the HPI. ALLERGIES: Codeine, morphine, streptokinase, diltiazem, clarithromycin, cephalosporins, penicillins, sulfonylureas PMH: Hypothyroidism, hyperlipidemia SOCIAL HISTORY: The patient lives locally with family. He denies drug, alcohol , tobacco use. PHYSICAL EXAM: VITALS: Vitals are noted on the nurse's note and reviewed by myself. Vital signs stable. GENERAL: This is an 81-year-old white male, in no acute distress, nondiaphoretic , well-developed well-nourished. LUNGS: Clear to auscultation and breath sounds equal, no wheezes, rales, or rhonchi. HEART: Heart sounds are regular without murmurs, ectopy, gallop, or rub. CHEST: The posterior bilateral chest wall is tender to palpation over the 3-8 ribs but there is no fracture crepitus and no ecchymosis. There is no tachypnea or dyspnea. ABDOMEN: Positive bowel sounds x 4. Normal tympanic percussion. Soft, nontender, without masses or organomegaly. No guarding or rebound tenderness. NEURO: Patient was alert and oriented to person place and time. RADIOLOGY: RIBS BILATERAL WITH PA CHEST CLINICAL HISTORY: 81 years-old Male presenting with posterior bilateral rib pain. TECHNIQUE: Frontal and oblique views of the bilateral ribs as well as PA view of the chest were obtained. COMPARISON: Chest x-ray from 01/26/2017. FINDINGS: Atherosclerosis of aortic arch. Mild tortuosity of the descending thoracic aorta. Cardiac silhouette normal in size. Hazy left basilar opacity new from prior. Coarsened pulmonary lung markings with mild pulmonary vascular prominence. No large pleural effusion or pneumothorax. Biapical scarring suggested. Upper abdomen normal. Osteopenia may be present. No displaced rib fracture. IMPRESSION: 1. Interval development of left basilar opacity, which could represent pneumonia or aspiration. 2. Findings could suggest volume overload. 3. No displaced rib fracture. Electronically signed by: Juwan Dodge M.D. 04/14/2017 3:59 PM Dictated Date/Time: 04/14/2017 3:57 PM EMERGENCY DEPARTMENT COURSE: I examined the patient. He was given 500 mg Tylenol for pain. X-rays of the chest with bilateral rib detail was reviewed by myself and radiologist and show no acute bony abnormalities. Incidental finding noted above. I discussed the findings with the patient and his family at bedside, and they report the patient will be seeing his oncologist on Thursday , when they will discuss the findings of the CXR. The patient was seen by Dr. Graham. Discharge instructions reviewed, and the patient was discharged home in good condition. I attest that I have personally reviewed the patient's current medication list. Patient was found to have normal blood pressure on screening and does not require follow-up. Differential diagnosis includes fracture, contusion, costochondritis, back pain , sprain, strain, tear, malignancy, and others DIAGNOSIS: Thoracic back strain Problem List Medical Problems: (1) Colon cancer Status: Chronic (2) Coronary artery disease Status: Chronic (3) Hypercholesteremia Status: Chronic (4) Hypertension Status: Chronic (5) Kidney stones Status: Chronic (6) Myocardial infarct Status: Resolved (7) Vertigo Status: Chronic Current/Historical Medications Scheduled Aspirin (Aspirin EC Low Dose), 81 MG PO DAILY Capecitabine (Capecitabine), 500 MG PO BID UD Dronabinol (Dronabinol), 2.5 MG PO BID Ferrous Sulfate (Ferrous Sulfate), 325 MG PO BIDM Levothyroxine Sodium (Levothyroxine Sodium), 112 MCG PO DAILY Magnesium Oxide (Mag-Ox), 400 MG PO DAILY Nitroglycerin (Nitrostat), 0.4 MG UT PRN Nutritional Supplements (Boost), 1 CAN PO BID Omeprazole (Prilosec), 20 MG PO QPM Simvastatin (Zocor), 40 MG PO QPM Tamsulosin Hcl (Flomax), 0.4 MG PO NOON Scheduled PRN Ondansetron Hcl (Zofran), 8 MG PO Q8 PRN for Nausea Allergies Coded Allergies: Clarithromycin (Verified Allergy, Severe, "MAJOR RXN" ?, 02/02/17) Penicillins (Verified Allergy, Severe, "MAJOR RXN" ?, 02/02/17) Sulfa Antibiotics (Verified Allergy, Severe, "SULFA DRUGS": "MAJOR RXN"?, 02/02/17) Sulfonylureas (Verified Allergy, Intermediate, RASH, 02/03/17) Cephalosporins (Verified Allergy, Unknown, ?, 02/02/17) Streptokinase (Verified Allergy, Unknown, ?, 02/02/17) Codeine (Verified Adverse Reaction, Mild, NAUSEA / VOMITING, 02/02/17) Diltiazem (Verified Adverse Reaction, Mild, FLUSHING, 02/03/17) Morphine (Verified Adverse Reaction, Mild, N/V, 02/03/17) Vital Signs Date Time Temp Pulse Resp B/P (MAP) Pulse Ox O2 Delivery O2 Flow Rate FiO2 04/14/17 16:40 62 18 110/60 96 Room Air 04/14/17 15:13 36.6 60 17 104/54 99 Room Air Medications Administered Medications (Trade) Dose Ordered Sig/Lenka Route Start Time Stop Time Status Last Admin Dose Admin Acetaminophen (Tylenol Tab) 500 mg NOW STAT PO 04/14/17 15:29 04/14/17 15:31 DC 04/14/17 15:36 500 MG Departure Information Impression Primary Impression: Strain of thoracic region Dispostion Home / Self-Care Condition GOOD Referrals Sonido Riojas M.D. (PCP) Patient Instructions ED Neck Back Pain General, [facility] Additional Instructions You have been treated in the Emergency Department for thoracic back strain. For pain control, you can use the following [id number] medicines (if >12 yo): - Tylenol (acetaminophen) 325-500mg every 4-6 hours as needed. Avoid taking more than 3 grams (3000 mg) of Tylenol per day. This includes any other sources of acetaminophen you may take on a regular basis. If this is an acute injury, ice can be applied to the area of pain for the first 3 days to help decrease pain and inflammation. After the first 3 days, a heating pad can be used over the area for continued soothing relief. Additionally, you should continue to force yourself to take nice, deep breaths. Full expansion of the lungs is necessary to prevent the accumulation of fluid in the lung tissue and development of pneumonia. You should schedule a follow-up appointment in 2-3 days with your Primary Care Provider for further evaluation and treatment of your back pain. As discussed, there was a haziness noted in the left lower lung field that you should follow- up with your PCP/oncologist for. If you get any significant fevers, body aches, chills, or other symptoms of illness, return immediately to the ED or contact your outpatient providers. Return to the Emergency Department if your current symptoms worsen despite treatment course outlined above, or if you develop any of the following symptoms : intractable pain despite aforementioned treatment course, development of a wet cough, bloody cough, fever, chills, or increased shortness of breath. Problem Qualifiers Primary Impression: Strain of thoracic region Encounter type: initial encounter Qualified Codes: S29.019A - Strain of muscle and tendon of unspecified wall of thorax, initial encounter
--- NOTE | 2017-04-14 15:37 | EMERGENCY ROOM VISIT NOTE ---
ED Visit Note First contact with patient: 15:16 I have seen and examined this patient with Homa Wilkerson and generally agree with the treatment plan as discussed. Problem List Medical Problems: (1) Colon cancer Status: Chronic (2) Coronary artery disease Status: Chronic (3) Hypercholesteremia Status: Chronic (4) Hypertension Status: Chronic (5) Kidney stones Status: Chronic (6) Myocardial infarct Status: Resolved (7) Vertigo Status: Chronic Current/Historical Medications Scheduled Aspirin (Aspirin EC Low Dose), 81 MG PO DAILY Clindamycin HCl (Clindamycin HCl), 300 MG PO Q8 Ferrous Sulfate (Ferrous Sulfate), 325 MG PO BIDM Levothyroxine Sodium (Synthroid), 100 MCG PO DAILYBB Loperamide Hcl (Loperamide Hcl), 2 MG PO DAILY Magnesium Oxide (Mag-Ox), 400 MG PO DAILY Nitroglycerin (Nitrostat), 0.4 MG UT PRN Nutritional Supplements (Boost), 1 CAN PO TID Omeprazole (Prilosec), 20 MG PO QPM Simvastatin (Zocor), 40 MG PO QPM Sodium Chloride (Sodium Chloride), 2 GM PO BID Tamsulosin Hcl (Flomax), 0.4 MG PO NOON Scheduled PRN Ondansetron Hcl (Zofran), 8 MG PO Q8 PRN for Nausea Allergies Coded Allergies: Clarithromycin (Verified Allergy, Severe, "MAJOR RXN" ?, 02/02/17) Penicillins (Verified Allergy, Severe, "MAJOR RXN" ?, 02/02/17) Sulfa Antibiotics (Verified Allergy, Severe, "SULFA DRUGS": "MAJOR RXN"?, 02/02/17) Sulfonylureas (Verified Allergy, Intermediate, RASH, 02/03/17) Cephalosporins (Verified Allergy, Unknown, ?, 02/02/17) Streptokinase (Verified Allergy, Unknown, ?, 02/02/17) Codeine (Verified Adverse Reaction, Mild, NAUSEA / VOMITING, 02/02/17) Diltiazem (Verified Adverse Reaction, Mild, FLUSHING, 02/03/17) Morphine (Verified Adverse Reaction, Mild, N/V, 02/03/17) Vital Signs Date Time Temp Pulse Resp B/P (MAP) Pulse Ox O2 Delivery O2 Flow Rate FiO2 04/14/17 15:13 36.6 60 17 104/54 99 Room Air Medications Administered Medications (Trade) Dose Ordered Sig/Lenka Route Start Time Stop Time Status Last Admin Dose Admin Acetaminophen (Tylenol Tab) 500 mg NOW STAT PO 04/14/17 15:29 04/14/17 15:31 DC 04/14/17 15:36 500 MG Departure Information Referrals Sonido Riojas M.D. (PCP) Patient Instructions [facility]
--- NOTE | 2017-04-14 16:00 | DIAGNOSTIC IMAGING REPORT ---
RIBS BILATERAL WITH PA CHEST CLINICAL HISTORY: 81 years-old Male presenting with posterior bilateral rib pain. TECHNIQUE: Frontal and oblique views of the bilateral ribs as well as PA view of the chest were obtained. COMPARISON: Chest x-ray from 01/26/2017. FINDINGS: Atherosclerosis of aortic arch. Mild tortuosity of the descending thoracic aorta. Cardiac silhouette normal in size. Hazy left basilar opacity new from prior. Coarsened pulmonary lung markings with mild pulmonary vascular prominence. No large pleural effusion or pneumothorax. Biapical scarring suggested. Upper abdomen normal. Osteopenia may be present. No displaced rib fracture. IMPRESSION: 1. Interval development of left basilar opacity, which could represent pneumonia or aspiration. 2. Findings could suggest volume overload. 3. No displaced rib fracture. Electronically signed by: Juwan Dodge M.D. 04/14/2017 3:59 PM Dictated Date/Time: 04/14/2017 3:57 PM
[2017-04-14] MEDS ORDERED: DRON2.5C10 PO (16:27)
[2017-04-14] MEDS ORDERED: CAPE1TAB3 PO (16:27)
[2017-04-14] MEDS ORDERED: LEVO112T4 PO (16:30)
[2017-04-14] MEDS ORDERED: NUTR-7 PO (16:30)
[2017-04-14 16:40] VITALS: BP 110/60; PULSE 62; O2SAT 96
[2017-04-14] MEDS ORDERED: PRLSR20 PO (20:02)
[2017-04-14] MEDS ORDERED: ONDA8TAB6 PO (20:03)
[2017-04-14] MEDS ORDERED: MAGN400T6 PO (20:11)
== END 2017-04-14 16:41 | disposition home or self-care (01) ==
LOC: C.EDB 15:02 → C.EDC 16:41
DX: S29.019A Strain of muscle and tendon of unspecified wall of thorax, initial encounter (principal); X50.0XXA Overexertion from strenuous movement or load, initial encounter; E03.9 Hypothyroidism, unspecified; E78.5 Hyperlipidemia, unspecified; I25.10 Atherosclerotic heart disease of native coronary artery without angina pectoris; I10 Essential (primary) hypertension; I25.2 Old myocardial infarction; Z79.82 Long term (current) use of aspirin; Z79.899 Other long term (current) drug therapy; Z85.038 Personal history of other malignant neoplasm of large intestine; Z88.5 Allergy status to narcotic agent; Z88.6 Allergy status to analgesic agent; Z88.8 Allergy status to other drugs, medicaments and biological substances; Z88.1 Allergy status to other antibiotic agents; Z88.0 Allergy status to penicillin; Z88.2 Allergy status to sulfonamides

== ENCOUNTER → 2017-04-17 | Outpatient (CLI) | payer OTHER ==
[~2017-04-17] MED LIST changes: +CAPE1TAB3 PO; -CLC150 PO; +DRON2.5C10 PO; +LEVO112T4 PO; +LEVO1TAB33 PO; +MAGN400T6 PO; +NTRGSL/4 UT; +ONDA-170 PO; +PRLSR20 PO; -SDMC1 PO; +SIMV40TA2 PO; -SYN100 PO; -[UNRECOGNIZED DRUG - CODE] PO
[2017-04-17 07:36] LABS: ALBUMIN 2.9 gm/dl (3.4-5.0); ALT/SGPT 21 U/L (12-78); BLOOD UREA NITROGEN 22 mg/dl (7-18); CALCIUM 8.7 mg/dl (8.5-10.1); CARBON DIOXIDE 27 mmol/L (21-32); CREATININE 1.04 mg/dl (0.60-1.40); GLUCOSE 133 mg/dl (70-99); POTASSIUM 4.3 mmol/L (3.5-5.1); SODIUM 134 mmol/L (136-145)
[2017-04-17 07:43] LABS: ALKALINE PHOSPHATASE 106 U/L (45-117); AST/SGOT 26 U/L (15-37); PHOSPHORUS 3.1 mg/dl (2.5-4.9); TOTAL PROTEIN 7.7 gm/dl (6.4-8.2)
== END | disposition home or self-care (01) ==
LOC: C.LAB1850 06:57
PROVIDERS: ATTEND Internal Medicine Hematology & Oncology
DX: C18.7 Malignant neoplasm of sigmoid colon (principal); C78.7 Secondary malignant neoplasm of liver and intrahepatic bile duct; E87.1 Hypo-osmolality and hyponatremia

== ENCOUNTER 2017-04-19 08:11 | Emergency (ER) | payer OTHER ==
[~2017-04-19] VITALS: Ht 165.1 cm; Wt 60.0 kg
[~2017-04-19 08:11] MED LIST changes: -LEVO1TAB33 PO; -ONDA-170 PO; +ONDA8TAB6 PO
[2017-04-19 08:16] VITALS: TEMP 36.7; Ht 165.1 cm; Wt 60.0 kg
--- NOTE | 2017-04-19 08:46 | EMERGENCY ROOM VISIT NOTE ---
ED Visit Note First contact with patient: 08:34 I have seen and examined this patient with Mary Jane Thornton and generally agree with the treatment plan as discussed. Problem List Medical Problems: (1) Colon cancer Status: Chronic (2) Coronary artery disease Status: Chronic (3) Hypercholesteremia Status: Chronic (4) Hypertension Status: Chronic (5) Kidney stones Status: Chronic (6) Myocardial infarct Status: Resolved (7) Vertigo Status: Chronic Current/Historical Medications Scheduled Aspirin (Aspirin EC Low Dose), 81 MG PO DAILY Capecitabine (Capecitabine), 500 MG PO BID UD Dronabinol (Dronabinol), 2.5 MG PO BID Ferrous Sulfate (Ferrous Sulfate), 325 MG PO BIDM Levothyroxine Sodium (Levothyroxine Sodium), 112 MCG PO DAILY Magnesium Oxide (Mag-Ox), 400 MG PO DAILY Nitroglycerin (Nitrostat), 0.4 MG UT PRN Nutritional Supplements (Boost), 1 CAN PO BID Omeprazole (Prilosec), 20 MG PO QPM Simvastatin (Zocor), 40 MG PO QPM Tamsulosin Hcl (Flomax), 0.4 MG PO NOON Scheduled PRN Ondansetron Hcl (Zofran), 8 MG PO Q8 PRN for Nausea Allergies Coded Allergies: Clarithromycin (Verified Allergy, Severe, "MAJOR RXN" ?, 02/02/17) Penicillins (Verified Allergy, Severe, "MAJOR RXN" ?, 02/02/17) Sulfa Antibiotics (Verified Allergy, Severe, "SULFA DRUGS": "MAJOR RXN"?, 02/02/17) Sulfonylureas (Verified Allergy, Intermediate, RASH, 02/03/17) Cephalosporins (Verified Allergy, Unknown, ?, 02/02/17) Streptokinase (Verified Allergy, Unknown, ?, 02/02/17) Codeine (Verified Adverse Reaction, Mild, NAUSEA / VOMITING, 02/02/17) Diltiazem (Verified Adverse Reaction, Mild, FLUSHING, 02/03/17) Morphine (Verified Adverse Reaction, Mild, N/V, 02/03/17) Vital Signs Date Time Temp Pulse Resp B/P (MAP) Pulse Ox O2 Delivery O2 Flow Rate FiO2 04/19/17 08:16 36.7 74 16 98/62 96 Room Air Departure Information Referrals Riojas, Christopher E.,M.D. (PCP) Patient Instructions My [facility]
[2017-04-19 09:15] LABS: EOS % 0.2 %; EOS ABS # 0.01 K/uL (0-0.5); HEMATOCRIT 26.8 % (42-52); HEMOGLOBIN 8.8 g/dL (14.0-18.0); IG# 0.01 K/uL (0.00-0.02); LYMPH % 28.6 %; LYMPH ABS # 1.64 K/uL (1.2-3.4); MEAN CELL VOLUME 85.9 fL (80-100); MEAN CORPUSCULAR HEMOGLOBIN 28.2 pg (25-34); MEAN CORPUSCULAR HGB CONC 32.8 g/dl (32-36); MONO % 10.3 %; MONO ABS # 0.59 K/uL (0.11-0.59); NEUT % 60.7 %; NEUT ABS # 3.49 K/uL (1.4-6.5); PLATELET COUNT 296 K/uL (130-400); RED CELL DISTRIBUTION WIDTH CV 19.3 % (11.5-14.5); RED CELL DISTRIBUTION WIDTH SD 58.6 fL (36.4-46.3); WHITE BLOOD COUNT 5.74 K/uL (4.8-10.8)
[2017-04-19] MEDS ORDERED: LEVO1TAB33 PO (09:36)
--- NOTE | 2017-04-19 09:45 | EMERGENCY ROOM VISIT NOTE ---
History First contact with patient: 08:34 Chief Complaint: GI ASSESSMENT Stated Complaint: 2 STOMAS COMING FROM HIS OSTOMY - NO BOWEL OUTPUT Nursing Triage Summary: Patient noted secondary outpouching of stoma through the night last night Snowflake stoma Stool noted in ostomy pouch No abdominal distention or pain History of Present Illness The patient is a 81 year old male who presents to the Emergency Room with complaints of an additional piece of bowel protruding into his stoma bag. Still is producing some stool from his normal stoma. He states it is decreased but he has not been eating very much. He states he noticed this new portion of bowel this morning. He denies any abdominal pain. The patient denies any fever or chest pain. The patient's family member states that Dr. Bautista had performed his surgery. He is out of town and they talked with Dr. Mart this morning about the patient. He instructed them to come to the emergency room to be evaluated by ER physician and then he will come to evaluate the patient himself. Review of Systems 10 system review was performed and was negative unless stated otherwise history of present illness. Past Medical/Surgical History Medical Problems: (1) Colon cancer (2) Colon carcinoma (3) Coronary artery disease (4) Diarrhea (5) Hip fracture (6) Hypercholesteremia (7) Hypertension (8) Hypothyroidism (9) Ingrown nail of great toe of left foot (10) Kidney stones (11) Myocardial infarct (12) Pleural effusion (13) SBO (small bowel obstruction) (14) Vertigo Family History Cancer Diabetes mellitus FHx: heart disease FHx: kidney disease/stones Social History Smoking Status: Never Smoker Alcohol Use: none Drug Use: none Marital Status: Housing Status: lives with significant other Occupation Status: retired Current/Historical Medications Scheduled Aspirin (Aspirin EC Low Dose), 81 MG PO DAILY Capecitabine (Capecitabine), 500 MG PO BID UD Dronabinol (Dronabinol), 2.5 MG PO BID Ferrous Sulfate (Ferrous Sulfate), 325 MG PO BIDM Levofloxacin (Levaquin), 500 MG PO DAILY Levothyroxine Sodium (Levothyroxine Sodium), 112 MCG PO DAILY Magnesium Oxide (Mag-Ox), 400 MG PO DAILY Nitroglycerin (Nitrostat), 0.4 MG UT PRN Nutritional Supplements (Boost), 1 CAN PO BID Omeprazole (Prilosec), 20 MG PO QPM Simvastatin (Zocor), 40 MG PO QPM Tamsulosin Hcl (Flomax), 0.4 MG PO NOON Scheduled PRN Ondansetron Hcl (Zofran), 8 MG PO Q8 PRN for Nausea Physical Exam Vital Signs Date Time Temp Pulse Resp B/P (MAP) Pulse Ox O2 Delivery O2 Flow Rate FiO2 04/19/17 08:16 36.7 74 16 98/62 96 Room Air Physical Exam GENERAL: 81-year-old white male appears in no acute distress. MENTAL Status: Alert and oriented 3. MOUTH: Mucosa is slightly dry. NECK: Supple, no lymphadenopathy noted. No carotid bruits noted. LUNGS: Clear auscultation without wheezes rales or rhonchi. CARDIAC: Regular rate and rhythm without murmur. Pulses is full and equal throughout. BACK: No CVA tenderness noted. ABDOMEN: Positive bowel sounds all 4 quadrants. Soft, nontender to palpation without organomegaly or masses. There is a stoma noted in the right upper to mid quadrant. There is an additional portion of bowel in the bag. Try to reduce this but it does not stay reduced. EXTREMITIES: No cyanosis or edema noted. Medical Decision & Procedures Laboratory Results 04/19/17 09:00 Red Blood Count 3.12, Mean Corpuscular Volume 85.9, Mean Corpuscular Hemoglobin 28.2, Mean Corpuscular Hemoglobin Concent 32.8, Mean Platelet Volume 9.0, Neutrophils (%) (Auto) 60.7, Lymphocytes (%) (Auto) 28.6, Monocytes (%) (Auto) 10.3, Eosinophils (%) (Auto) 0.2, Basophils (%) (Auto) 0.0, Neutrophils # (Auto ) 3.49, Lymphocytes # (Auto) 1.64, Monocytes # (Auto) 0.59, Eosinophils # (Auto ) 0.01, Basophils # (Auto) 0.00 Test 04/19/17 09:00 White Blood Count 5.74 K/uL (4.8-10.8) Red Blood Count 3.12 M/uL (4.7-6.1) Hemoglobin 8.8 g/dL (14.0-18.0) Hematocrit 26.8 % (42-52) Mean Corpuscular Volume 85.9 fL (80-100) Mean Corpuscular Hemoglobin 28.2 pg (25-34) Mean Corpuscular Hemoglobin Concent 32.8 g/dl (32-36) Platelet Count 296 K/uL (130-400) Mean Platelet Volume 9.0 fL (7.4-10.4) Neutrophils (%) (Auto) 60.7 % Lymphocytes (%) (Auto) 28.6 % Monocytes (%) (Auto) 10.3 % Eosinophils (%) (Auto) 0.2 % Basophils (%) (Auto) 0.0 % Neutrophils # (Auto) 3.49 K/uL (1.4-6.5) Lymphocytes # (Auto) 1.64 K/uL (1.2-3.4) Monocytes # (Auto) 0.59 K/uL (0.11-0.59) Eosinophils # (Auto) 0.01 K/uL (0-0.5) Basophils # (Auto) 0.00 K/uL (0-0.2) RDW Standard Deviation 58.6 fL (36.4-46.3) RDW Coefficient of Variation 19.3 % (11.5-14.5) Immature Granulocyte % (Auto) 0.2 % Immature Granulocyte # (Auto) 0.01 K/uL (0.00-0.02) ED Course The patient was evaluated by myself and independently by Dr. Graham. IV access was obtained. CBC differential, renal profile, LFTs and lipase levels were ordered. Labs are reviewed and were unchanged from the patient's baseline. Dr. Mart was consulted who agreed to come and evaluate the patient before deciding on any diagnostic imaging. Dr. Mart evaluated the patient and stated that he could be discharged. He stated that additional portion of bowel can be normal for the patient's surgery. He is to call Dr. Bautista tomorrow for follow-up appointment. The patient was informed of the treatment plan and was in agreement. The patient was discharged home in stable condition. Medical Decision Differential diagnosis include bowel obstruction, strangulated hernia, normal stoma. The decision was made to contact Dr. Mart to come evaluate the patient to see if additional portion of bowel in the patient's stoma bag was normal or if additional evaluation was needed. [place] Drug Monitoring Program Search Results: patient reviewed within database Medication Reconcilliation Current Medication List: was personally reviewed by sd Blood Pressure Screening Patient's blood pressure: Low blood pressure Impression Primary Impression: History of bowel resection Additional Impression: Anemia Departure Information Dispostion Home / Self-Care Condition GOOD Referrals Sonido Riojas M.D. (PCP) Mike Bautista M.D. Forms HOME CARE DOCUMENTATION FORM, IMPORTANT VISIT INFORMATION Patient Instructions My [facility] Additional Instructions Call Dr. Bautista tomorrow for follow-up appointment. Continue current medications as prescribed. Problem Qualifiers Additional Impression: Anemia Anemia type: unspecified type Qualified Codes: D64.9 - Anemia, unspecified
--- NOTE | 2017-04-19 09:45 | Surgery Consultation ---
Consultation Date of Consultation: Apr 19, 2017. Attending Physician: History of Present Illness pt is a 81 year old male who presents to ER with ileostomy, pt had loop ileostomy for unresectable colon cancer by DR. Bautista on 09/11/2016. this morning pt found that there is 2 ileostomy, pt denies abdominal pain, no nausea , no vomiting, the ileostomy working fine, some solid stool in the bag, Past Medical/Surgical History Medical Problems: (1) Altered bowel elimination due to intestinal ostomy Status: Acute (2) Closed head injury Status: Acute (3) Dehydration Status: Acute (4) Dehydration Status: Acute (5) Dehydration Status: Acute (6) Diarrhea Status: Acute (7) Fracture of ramus of right pubis Status: Acute (8) Generalized weakness Status: Acute (9) High output ileostomy Status: Acute (10) Hip fracture, right Status: Acute (11) Hyperkalemia Status: Acute (12) Hypotension Status: Acute (13) Metabolic acidosis Status: Acute (14) Small bowel obstruction Status: Acute (15) Strain of thoracic region Status: Acute (16) Vomiting Status: Acute Social History Problems: (1) History of bowel resection Status: Acute Family History Cancer Diabetes mellitus FHx: heart disease FHx: kidney disease/stones Social History Smoking Status: Never Smoker Smokeless Tobacco Use: No Alcohol Use: none Drug Use: none Marital Status: Housing Status: lives with significant other Occupation Status: retired Allergies Coded Allergies: Clarithromycin (Verified Allergy, Severe, "MAJOR RXN" ?, 02/02/17) Penicillins (Verified Allergy, Severe, "MAJOR RXN" ?, 02/02/17) Sulfa Antibiotics (Verified Allergy, Severe, "SULFA DRUGS": "MAJOR RXN"?, 02/02/17) Sulfonylureas (Verified Allergy, Intermediate, RASH, 02/03/17) Cephalosporins (Verified Allergy, Unknown, ?, 02/02/17) Streptokinase (Verified Allergy, Unknown, ?, 02/02/17) Codeine (Verified Adverse Reaction, Mild, NAUSEA / VOMITING, 02/02/17) Diltiazem (Verified Adverse Reaction, Mild, FLUSHING, 02/03/17) Morphine (Verified Adverse Reaction, Mild, N/V, 02/03/17) Home Medications Scheduled Aspirin (Aspirin EC Low Dose), 81 MG PO DAILY Capecitabine (Capecitabine), 500 MG PO BID UD Dronabinol (Dronabinol), 2.5 MG PO BID Ferrous Sulfate (Ferrous Sulfate), 325 MG PO BIDM Levothyroxine Sodium (Levothyroxine Sodium), 112 MCG PO DAILY Magnesium Oxide (Mag-Ox), 400 MG PO DAILY Nitroglycerin (Nitrostat), 0.4 MG UT PRN Nutritional Supplements (Boost), 1 CAN PO BID Omeprazole (Prilosec), 20 MG PO QPM Simvastatin (Zocor), 40 MG PO QPM Tamsulosin Hcl (Flomax), 0.4 MG PO NOON Scheduled PRN Ondansetron Hcl (Zofran), 8 MG PO Q8 PRN for Nausea Review of Systems Constitutional: No fever, No chills, No sweats, No weight loss, No weakness, No fatigue, No problem reported Eyes: No worsening of vision, No eye pain, No redness, No discharge, No diplopia, No problem reported ENT: No hearing loss, No unusual epistaxis, No nasal symptoms, No sore throat, No tinnitus, No dental problems, No trouble swallowing, No problem reported Respiratory: No cough, No sputum, No wheezing, No shortness of breath, No dyspnea on exertion, No dyspnea at rest, No hemoptysis, No problem reported Cardiovascular: No chest pain, No orthopnea, No PND, No edema, No claudication , No palpitations, No problem reported Abdomen: + problem reported (colon cancer) Neurologic: No memory loss, No paralysis, No weakness, No numbness/tingling, No vertigo, No balance problems, No problem reported Psychiatric: No depression symptoms, No anhedonism, No anxiety, No insomnia, No substance abuse, No problem reported Hematologic / Lymphatic: No abnormal bleeding/bruising, No clotting problems, No swollen lymph nodes, No night sweats, No problem reported Physical Exam Date Time Temp Pulse Resp B/P (MAP) Pulse Ox O2 Delivery O2 Flow Rate FiO2 04/19/17 08:16 36.7 74 16 98/62 96 Room Air General Appearance: WD/WN, no apparent distress Head: normocephalic Eyes: normal inspection ENT: normal ENT inspection Neck: supple, no JVD Respiratory/Chest: chest non-tender, lungs clear Cardiovascular: regular rate, rhythm, no edema, no gallop, no JVD, no murmur Abdomen/GI: normal bowel sounds, non tender, soft, no organomegaly, no pulsatile mass, + pertinent finding (loop ileostomy working fine, some solid stool in bag, ) Extremities/Musculoskelatal: normal inspection, no calf tenderness, normal capillary refill Neurologic/Psych: no motor/sensory deficits, alert, normal mood/affect, oriented x 3 Skin: normal color, warm/dry, no rash Laboratory Results Last 24 Hours Test 04/19/17 09:00 White Blood Count 5.74 K/uL Red Blood Count 3.12 M/uL Hemoglobin 8.8 g/dL Hematocrit 26.8 % Mean Corpuscular Volume 85.9 fL Mean Corpuscular Hemoglobin 28.2 pg Mean Corpuscular Hemoglobin Concent 32.8 g/dl Platelet Count 296 K/uL Mean Platelet Volume 9.0 fL Neutrophils (%) (Auto) 60.7 % Lymphocytes (%) (Auto) 28.6 % Monocytes (%) (Auto) 10.3 % Eosinophils (%) (Auto) 0.2 % Basophils (%) (Auto) 0.0 % Neutrophils # (Auto) 3.49 K/uL Lymphocytes # (Auto) 1.64 K/uL Monocytes # (Auto) 0.59 K/uL Eosinophils # (Auto) 0.01 K/uL Basophils # (Auto) 0.00 K/uL RDW Standard Deviation 58.6 fL RDW Coefficient of Variation 19.3 % Immature Granulocyte % (Auto) 0.2 % Immature Granulocyte # (Auto) 0.01 K/uL Assessment & Plan Assessment; Pt is a 81 year old male who is S/P loop ileostomy, pt said there is 2 ileostomy on stoma site, but pt denies abdominal pain, no nausea, no vomiting. IMP: S/P loop ileostomy I explain to pt his family members about loop ileostomy, they understood, I answered all question, plan, pt can be discharged to home today, F/U Dr. Bautista in 1 week,
[2017-04-19 09:56] LABS: ALBUMIN 2.7 gm/dl (3.4-5.0); ALT/SGPT 21 U/L (12-78); AST/SGOT 25 U/L (15-37); BLOOD UREA NITROGEN 26 mg/dl (7-18); CALCIUM 8.7 mg/dl (8.5-10.1); CARBON DIOXIDE 24 mmol/L (21-32); CREATININE 1.22 mg/dl (0.60-1.40); GLUCOSE 128 mg/dl (70-99); LIPASE 74 U/L (73-393); POTASSIUM 4.7 mmol/L (3.5-5.1); SODIUM 136 mmol/L (136-145)
[2017-04-19 09:57] VITALS: BP 97/54; PULSE 71; O2SAT 99
[2017-04-19 09:59] LABS: ALKALINE PHOSPHATASE 88 U/L (45-117); TOTAL PROTEIN 7.1 gm/dl (6.4-8.2)
== END 2017-04-19 09:58 | disposition home or self-care (01) ==
LOC: C.EDB 08:13
DX: Z43.2 Encounter for attention to ileostomy (principal); D64.9 Anemia, unspecified; Z85.038 Personal history of other malignant neoplasm of large intestine; Z90.49 Acquired absence of other specified parts of digestive tract; I25.10 Atherosclerotic heart disease of native coronary artery without angina pectoris; E78.00 Pure hypercholesterolemia, unspecified; I10 Essential (primary) hypertension; E03.9 Hypothyroidism, unspecified; I25.2 Old myocardial infarction; Z79.82 Long term (current) use of aspirin; Z88.1 Allergy status to other antibiotic agents; Z88.0 Allergy status to penicillin; Z88.2 Allergy status to sulfonamides; Z88.8 Allergy status to other drugs, medicaments and biological substances; Z88.5 Allergy status to narcotic agent; Z88.6 Allergy status to analgesic agent; Z80.9 Family history of malignant neoplasm, unspecified; Z83.3 Family history of diabetes mellitus; Z82.49 Family history of ischemic heart disease and other diseases of the circulatory system; Z84.1 Family history of disorders of kidney and ureter

== ENCOUNTER → 2017-04-23 | Outpatient (CLI) | payer OTHER ==
[~2017-04-23] MED LIST changes: +LEVO1TAB33 PO; +ONDA-170 PO; -ONDA8TAB6 PO
--- NOTE | 2017-04-23 09:48 | DIAGNOSTIC IMAGING REPORT ---
CHEST 2 VIEWS ROUTINE CLINICAL HISTORY: C18.7, R93.8 dyspnea. Pneumonia. COMPARISON STUDY: 04/14/2017 FINDINGS: Lungs now essentially clear. Slight interstitial prominence possibly chronic. Mild tortuosity thoracic aorta. Diaphragms smooth. IMPRESSION: Slight interstitial prominence throughout both hemithoraces. No current evidence for focal infiltrate. The above report was generated using voice recognition software. It may contain grammatical, syntax or spelling errors. Electronically signed by: Mike Thornton M.D. 04/23/2017 9:47 AM Dictated Date/Time: 04/23/2017 9:46 AM
== END | disposition home or self-care (01) ==
LOC: C.RAD1850 09:28
PROVIDERS: ATTEND Internal Medicine Hematology & Oncology
DX: C18.7 Malignant neoplasm of sigmoid colon (principal); R93.8 Abnormal findings on diagnostic imaging of other specified body structures

== ENCOUNTER → 2017-04-27 | Outpatient (CLI) | payer OTHER ==
[2017-04-27 07:50] LABS: EOS % 0.1 %; EOS ABS # 0.01 K/uL (0-0.5); HEMATOCRIT 31.4 % (42-52); HEMOGLOBIN 10.2 g/dL (14.0-18.0); IG# 0.03 K/uL (0.00-0.02); LYMPH % 17.5 %; LYMPH ABS # 1.55 K/uL (1.2-3.4); MEAN CELL VOLUME 85.6 fL (80-100); MEAN CORPUSCULAR HEMOGLOBIN 27.8 pg (25-34); MEAN PLATELET VOLUME 9.1 fL (7.4-10.4); MONO % 10.4 %; MONO ABS # 0.92 K/uL (0.11-0.59); NEUT % 71.7 %; NEUT ABS # 6.33 K/uL (1.4-6.5); PLATELET COUNT 414 K/uL (130-400); RED CELL DISTRIBUTION WIDTH CV 18.9 % (11.5-14.5); RED CELL DISTRIBUTION WIDTH SD 58.2 fL (36.4-46.3); WHITE BLOOD COUNT 8.84 K/uL (4.8-10.8)
[2017-04-27 07:52] LABS: MEAN CORPUSCULAR HGB CONC 32.5 g/dl (32-36)
[2017-04-27 08:09] LABS: ALBUMIN 2.7 gm/dl (3.4-5.0); ALT/SGPT 26 U/L (12-78); BLOOD UREA NITROGEN 25 mg/dl (7-18); CARBON DIOXIDE 30 mmol/L (21-32); CREATININE 0.89 mg/dl (0.60-1.40); GLUCOSE 176 mg/dl (70-99); POTASSIUM 4.7 mmol/L (3.5-5.1); SODIUM 135 mmol/L (136-145)
[2017-04-27 08:23] LABS: ALKALINE PHOSPHATASE 92 U/L (45-117); AST/SGOT 23 U/L (15-37); TOTAL PROTEIN 7.1 gm/dl (6.4-8.2)
== END | disposition home or self-care (01) ==
LOC: C.LAB1850 07:24
PROVIDERS: ATTEND Internal Medicine Hematology & Oncology
DX: C18.7 Malignant neoplasm of sigmoid colon (principal); E03.9 Hypothyroidism, unspecified

== ENCOUNTER → 2017-05-15 | Outpatient (CLI) | payer OTHER ==
[2017-05-15 12:24] LABS: BASO % 0.1 %; BASO ABS # 0.01 K/uL (0-0.2); EOS % 0.4 %; EOS ABS # 0.03 K/uL (0-0.5); HEMATOCRIT 32.2 % (42-52); HEMOGLOBIN 10.3 g/dL (14.0-18.0); IG# 0.01 K/uL (0.00-0.02); LYMPH % 28.7 %; LYMPH ABS # 2.01 K/uL (1.2-3.4); MEAN CELL VOLUME 86.1 fL (80-100); MEAN CORPUSCULAR HEMOGLOBIN 27.5 pg (25-34); MEAN PLATELET VOLUME 10.7 fL (7.4-10.4); MONO % 8.1 %; MONO ABS # 0.57 K/uL (0.11-0.59); NEUT % 62.6 %; NEUT ABS # 4.37 K/uL (1.4-6.5); PLATELET COUNT 313 K/uL (130-400); RED CELL DISTRIBUTION WIDTH CV 20.9 % (11.5-14.5)
[2017-05-15 16:05] LABS: ALT/SGPT 27 U/L (12-78); BLOOD UREA NITROGEN 24 mg/dl (7-18); CALCIUM 8.7 mg/dl (8.5-10.1); CARBON DIOXIDE 25 mmol/L (21-32); CREATININE 0.92 mg/dl (0.60-1.40); GLUCOSE 148 mg/dl (70-99); POTASSIUM 4.6 mmol/L (3.5-5.1); SODIUM 132 mmol/L (136-145)
[2017-05-15 16:08] LABS: ALKALINE PHOSPHATASE 131 U/L (45-117); AST/SGOT 29 U/L (15-37); TOTAL PROTEIN 6.9 gm/dl (6.4-8.2)
== END | disposition home or self-care (01) ==
LOC: C.LAB1850 10:13
PROVIDERS: ATTEND Internal Medicine Hematology & Oncology
DX: C18.7 Malignant neoplasm of sigmoid colon (principal)

== ENCOUNTER → 2017-05-21 | Outpatient (CLI) | payer OTHER ==
[~2017-05-21] MED LIST changes: -ASPEC81 PO; +ASPI-320 PO
--- NOTE | 2017-05-25 07:46 | PULMONARY FUNCTION TEST ---
Interpretation based off ATS criteria. SPIROMETRY: Within normal limits. BRONCHODILATOR RESPONSE: No significant response. LUNG VOLUMES: Within normal limits. INTERPRETATION: Normal pulmonary function study.
== END | disposition home or self-care (01) ==
LOC: C.RC 09:26
PROVIDERS: ATTEND Physician Assistant
DX: R91.8 Other nonspecific abnormal finding of lung field (principal)

== ENCOUNTER → 2017-06-03 | Outpatient (CLI) | payer OTHER ==
[~2017-06-03] MED LIST changes: +ACET-1256 PO; +ASPI81TA28 PO; +CZR50 PO; +FERR1TAB23 PO; +ULT50 PO
--- NOTE | 2017-06-03 12:52 | DIAGNOSTIC IMAGING REPORT ---
THORACIC SPINE 3 VIEWS CLINICAL HISTORY: Thoracic back pain after lifting. FINDINGS: AP, lateral, and swimmer's views of the thoracic spine are correlated with chest CT dated 06/23/2016 and PET/CT dated 11/19/2016. The skeletal structures are osteopenic. There is a severe compression deformity in the lower thoracic spine, likely at the level of T10. No retropulsed fragments are identified. A mild anterior wedge compression deformity is suggested involving T8. These are new from 11/19/2016 and likely subacute. There is associated hyperkyphosis. Vertebral body height is otherwise maintained as visualized. The transverse processes and pedicles are grossly intact as seen on the frontal view. Multilevel disc space narrowing is noted. A nonobstructing left renal calculus is identified. The lung parenchyma is clear as imaged. There is atherosclerotic calcification of the thoracic aorta. IMPRESSION: 1. There is a severe compression deformity in the lower thoracic spine, likely involving T10 which is new from 11/19/2016 and likely subacute. 2. A mild anterior wedge compression deformity of T8 is also new from previous. 3. Osteopenia, degenerative change, and hyperkyphosis as above. 4. Nonobstructing left renal calculus. Electronically signed by: Levy Mcgowan M.D. 06/03/2017 12:50 PM Dictated Date/Time: 06/03/2017 12:47 PM
== END | disposition home or self-care (01) ==
LOC: C.RADBC 12:24
PROVIDERS: ATTEND Physician Assistant Medical
DX: M54.6 Pain in thoracic spine (principal); M85.80 Other specified disorders of bone density and structure, unspecified site; N20.0 Calculus of kidney

== ENCOUNTER 2017-06-10 14:34 | Emergency (ER) | payer OTHER ==
[~2017-06-10] VITALS: Ht 165.1 cm; Wt 58.0 kg
[~2017-06-10 14:34] MED LIST changes: -ACET-1256 PO; -ASPI81TA28 PO; -CZR50 PO; -FERR1TAB23 PO; -PRLSR20 PO; -ULT50 PO
[2017-06-10 14:35] VITALS: Ht 165.1 cm; Wt 58.0 kg
[2017-06-10] MEDS ORDERED: LIDODERM (LIDOCAINE) PATCH 5% TD STA (14:58)
[2017-06-10] MEDS ORDERED: IBUPROFEN 600 MG TAB PO STA (14:58)
[2017-06-10] MEDS ORDERED: DEXAMETHASONE 4 MG TAB PO ONE (15:00)
[2017-06-10] MEDS ORDERED: OXYCODONE/ACETAMINOPHEN 5-325 TAB PO ONE (15:00)
--- NOTE | 2017-06-10 15:19 | EMERGENCY ROOM VISIT NOTE ---
History Report prepared by Vance: Kavin Shaffer Under the Supervision of: Dr. Boyd Whipple M.D. First contact with patient: 14:52 Chief Complaint: BACK PAIN Stated Complaint: PAIN IN LOWER BACK History of Present Illness The patient is an 81 year old male who presents to the Emergency Room with complaints of worsening lower back pain over the past couple of months. The pain is worsened with laying down for long periods of time. The patient states that he has a history of a compression fracture in his upper back two months ago after lifting up a ming cart into a car. He states that he was having upper back pain initially, though now he is having worsening lower back pain. The patient states that he was seen in the ED after the initial even, and since then he has had x-rays done by his PCP, and he has not seen a property preservation specialist yet but think their PCP is trying to arrange f/u with Dr. Yang. The patient's family states that the patient has been taking tramadol, though nothing has been helping with the pain. He has not been lifting any heavy objects recently. The patient denies any fever, chills, cough, nausea, vomiting, change in urination, and any weakness in his legs. He currently has an ileostomy. The patient took tramadol at 0930 and then took 500mg of Tylenol around 1045. He has no history of bleeding problems, and he does not have any history of kidney problems or diabetes. The patient states that he has used prednisone for his back. Source of History: patient, family Onset: the past couple of months Position: back Timing: worsening Modifying Factors (Worsening): other (laying down for long periods of time) Modifying Factors (Relieving): other (nothing) Associated Symptoms: No fevers, No chills, No cough, No nausea, No vomiting , No weakness Review of Systems See HPI for pertinent positives and negatives. A total of ten systems were reviewed and were otherwise negative. Past Medical & Surgical Medical Problems: (1) Colon cancer (2) Colon carcinoma (3) Coronary artery disease (4) Diarrhea (5) Hip fracture (6) Hypercholesteremia (7) Hypertension (8) Hypothyroidism (9) Ingrown nail of great toe of left foot (10) Kidney stones (11) Myocardial infarct (12) Pleural effusion (13) SBO (small bowel obstruction) (14) Vertigo Family History Cancer Diabetes mellitus FHx: heart disease FHx: kidney disease/stones Social History Smoking Status: Unknown if Ever Smoked Alcohol Use: none Drug Use: none Marital Status: Housing Status: lives with significant other Occupation Status: retired Current/Historical Medications Scheduled Acetaminophen (Tylenol), 500 MG PO PRN Aspirin (Aspirin Ec), 81 MG PO DAILY Capecitabine (Capecitabine), 500 MG PO BID UD Dronabinol (Dronabinol), 2.5 MG PO BID Ferrous Sulfate (Iron), 325 MG PO DAILY Levothyroxine Sodium (Levothyroxine Sodium), 112 MCG PO DAILY Losartan Potassium (Losartan Potassium), 50 MG PO DAILY Magnesium Oxide (Mag-Ox), 400 MG PO DAILY Nitroglycerin (Nitrostat), 0.4 MG UT PRN Nutritional Supplements (Boost), 1 CAN PO BID Omeprazole (Prilosec), 20 MG PO QAM Simvastatin (Zocor), 40 MG PO QPM Tamsulosin Hcl (Flomax), 0.4 MG PO NOON Scheduled PRN Ondansetron Hcl (Zofran), 8 MG PO Q8 PRN for Nausea Tramadol HCl (Tramadol HCl), 50 MG PO Q8 PRN for Pain Allergies Coded Allergies: Clarithromycin (Verified Allergy, Severe, "MAJOR RXN" ?, 04/19/17) Penicillins (Verified Allergy, Severe, "MAJOR RXN" ?, 04/19/17) Sulfa Antibiotics (Verified Allergy, Severe, "SULFA DRUGS": "MAJOR RXN"?, 04/19/17) Sulfonylureas (Verified Allergy, Intermediate, RASH, 04/19/17) Cephalosporins (Verified Allergy, Unknown, ?, 04/19/17) Streptokinase (Verified Allergy, Unknown, ?, 04/19/17) Codeine (Verified Adverse Reaction, Mild, NAUSEA / VOMITING, 04/19/17) Diltiazem (Verified Adverse Reaction, Mild, FLUSHING, 04/19/17) Morphine (Verified Adverse Reaction, Mild, N/V, 04/19/17) Physical Exam Vital Signs Date Time Temp Pulse Resp B/P (MAP) Pulse Ox O2 Delivery O2 Flow Rate FiO2 06/10/17 17:55 36.8 94 20 121/70 95 06/10/17 14:35 36.8 101 20 103/65 96 Room Air Physical Exam GENERAL: Awake, alert, uncomfortable-appearing, in no distress HENT: Normocephalic, atraumatic. Dry mucous membranes otherwise oropharynx unremarkable. EYES: Normal conjunctiva. Sclera non-icteric. NECK: Supple. No nuchal rigidity. FROM. No JVD. RESPIRATORY: Clear to auscultation. CARDIAC: Regular rate, normal rhythm. Extremities warm and well perfused. Pulses equal. ABDOMEN: Soft, non-distended. No tenderness to palpation. No rebound or guarding. No masses. RECTAL: Deferred. MUSCULOSKELETAL: Chest examination reveals no tenderness. Mild tenderness in the T L spines. No step off. There is no CVA tenderness to palpation. No joint edema. LOWER EXTREMITIES: Calves are equal size bilaterally and non-tender. No edema. No discoloration. NEURO: Normal sensorium. No sensory or motor deficits noted. Strength is 5/5 and SILT in the bilateral lower extremities. SKIN: No rash or jaundice noted. Medical Decision & Procedures ER Provider Diagnostic Interpretation: Radiology results as stated below per my review and radiologist interpretation: THORACIC SPINE WITHOUT CT DOSE: HISTORY: Pain compression fracture TECHNIQUE: Multiaxial CT images of the thoracic spine were performed and reformatted in the sagittal and coronal plane without the use of contrast. A dose lowering technique was utilized adhering to the principles of ALARA. COMPARISON: 06/03/2017 FINDINGS: Significant compression fractures of T8 and T10. HISTORY: Loss of vertebral body height is 80%. There is slight posterior retropulsion of the posterior margins of the vertebral body by approximately 2.5 mm. No additional compression deformity is identified. There are degenerative changes throughout the entire thoracic region. There is no evidence for severe compromise of the spinal canal. There is pulmonary apical fibrotic change. There are degenerative changes of the posterior and lateral elements. There is a very small bilateral pleural effusions. IMPRESSION: 1. Severe compression deformities of T8 and T10. 2. Moderate degenerative disc change throughout the entire thoracic region. 3. No evidence for significant compromise of the spinal canal. 4. Very small bilateral pleural effusions. The above report was generated using voice recognition software. It may contain grammatical, syntax or spelling errors. Electronically signed by: Mike Thornton M.D. 06/10/2017 4:00 PM Dictated Date/Time: 06/10/2017 3:55 PM LUMBAR SPINE WITHOUT HISTORY: 81 years-old Male PAIN known comp fx acute low back pain COMPARISON: Thoracic spine radiographs 06/03/2017, PET CT 11/19/2016, CT abdomen and pelvis 09/09/2016 TECHNIQUE: Multiple axial CT images of the lumbar spine were obtained without IV contrast. Coronal and sagittal reformatted images were obtained from the axial data set and were submitted for review. A dose lowering technique was used consistent with the principals of ALARA. FINDINGS: The bones appear very demineralized and are likely osteoporotic. 25% anterior endplate compression deformity of the L2 vertebral body appears acute with 3 mm retropulsion involving the superior aspect of the posterior endplate. No significant central canal narrowing identified. Additionally, there is a compression fracture of the L5 vertebral body which is new from comparison PET CT 11/19/2016 with 60% central loss of vertebral body height. 4 mm retropulsion involving the superior aspect of the posterior endplate without significant central canal narrowing. Linear irregular sclerosis and lucencies are seen within the bilateral sacroiliac suggesting acute subacute insufficiency fractures without displacement. No acute subluxation or additional fracture identified. The transverse processes appear intact. Trace left and small right pleural effusions. Small sliding-type hiatal hernia with fluid within the distal esophagus. Extensive calcification of the aorta without aneurysm. Calcifications about the bilateral kidneys suggests renal calcifications or nephrolithiasis. IMPRESSION: 1. Acute 25% anterior endplate compression deformity of the L2 vertebral body with 3 mm retropulsion. No significant central canal narrowing. 2. Age-indeterminate compression deformity of the L5 vertebral body is new from comparison study 11/19/2016 and demonstrates 4 mm retropulsion without significant central canal narrowing. Correlate with point tenderness. 3. Acute to subacute appearing bilateral nondisplaced sacral insufficiency fractures. 4. Trace left and small right pleural effusions. The above report was generated using voice recognition software. It may contain grammatical, syntax or spelling errors. Electronically signed by: Tyrese Savage M.D. 06/10/2017 4:02 PM Dictated Date/Time: 06/10/2017 3:55 PM Medications Administered Medications (Trade) Dose Ordered Sig/Lenka Route Start Time Stop Time Status Last Admin Dose Admin Oxycodone/ Acetaminophen (Percocet 5-325mg Tab) 1 tab NOW ONCE PO 06/10/17 15:00 06/10/17 15:09 DC 06/10/17 15:20 1 TAB Ibuprofen (Motrin Tab) 600 mg NOW STAT PO 06/10/17 14:58 06/10/17 15:09 DC 06/10/17 15:20 600 MG Dexamethasone (Decadron Tab) 10 mg NOW ONCE PO 06/10/17 15:00 06/10/17 15:09 DC 06/10/17 15:20 10 MG Lidocaine (Lidoderm Patch 5%) 1 patch NOW STAT TD 06/10/17 14:58 06/10/17 15:09 DC 06/10/17 15:19 1 PATCH Oxycodone HCl (Roxicodone Immediate Rel 5MG Home Pack) 1 homepack UD ONCE PO 06/10/17 17:15 06/10/17 17:16 DC 06/10/17 17:54 1 HOMEPACK ED Course 1452: The patient was evaluated in room B10. A complete history and physical exam was performed. 1621: I reevaluated the patient, and he was doing okay. 1643: I discussed the patient's case with Dr. Mata - Orthopedics, and he said that he can see the patient in the next couple of days. 1655: I discussed the patient's case with Dr. Tolbert - Oncology, and she states that the patient has cancelled some appointments with them recently, so they are going to try to get him into the clinic. 1714: I reevaluated the patient, and he was doing well. Discussed results and discharge instructions: he verbalized understanding and agreement. The patient is ready for discharge. Medical Decision I reviewed the patient's past medical history, medications, and the nursing notes as described above. Differential diagnosis: Etiologies such as musculoskeletal, disc herniation, fracture, aortic disease, metastatic disease, cord compression, discitis, infection, renal colic, gastrointestinal, acute exacerbation of chronic back pain, sciatica, cauda equina, as well as others were entertained. The patient is an 81 y/o gentleman with a pmhx of metastatic colon cancer s/p colostomy currently undergo intermittent course of chemo (likely palliative per prior notes) who presents to the emergency department with worsening back pain in the setting of being diagnosed with compression fractures 1 month ago after having a strenuous movement lifting a heavy object per HPI. On arrival the patient is uncomfortable but in NAD, AFVSS. 5/5 strength and SILT BLE. Denies new urinary retention, lost of sensation. Has mild ttp throughout T and L spine. No step-offs. CT of TL spine performed and demonstrates severe compression fx of T8 and T10 with mild posterior retropulsion of 2.5mm. Additional lumbar findings with L5 most significant with 60% loss of height and mild posterior 4mm retropulsion. No significant canal narrow. Given that patient shows no clinical signs of cord compression at this time, no indication for emergent MRI. Case d/w Dr. Mata, Spine, and we agree with plan for prompt outpatient f/u and likely brace for support/comfort. Additionally d/w Dr. Raya, patient's oncologist, to update her on today's findings and she confirms that the patient has canceled rescheduled recent appointments for chemo as well as his surveillance PET scan. Her office will contact the patient to arrange for f/ u. Findings and plan d/w patient. Of note, patient's requesting alternate spine referral for personal reasons. Patient additionally given contact information for Dr. Yang. Patient encouraged to f/u with soonest available. Pain improved with percocet, ibuprofen, dexamethasone, lidoderm patch. Patient/ reports their insurance will not cover Lidoderm patch. Therefore will given homepack of oxycodone for breakthrough pain only. Patient counseled on risk of narcotics in the elderly. Findings and plan for follow-up reviewed with patient. Patient agreeable and d/c'd per discharge instructions. Medication Reconcilliation Current Medication List: was personally reviewed by me Blood Pressure Screening Patient's blood pressure: Normal blood pressure Consults Time Called: 1639 Consulting Physician: Dr. Mata - Orthopedics Returned Call: [phone] I discussed the patient's case with Dr. Adolfo Toth [facility], and he said that he can see the patient in the next couple of days. Additional Consults: Time Called: [phone] Consulted Physician: Dr. Tolbert - Oncology Returned Call: [phone] Additional Comments: I discussed the patient's case with Dr. Tolbert - Oncology, and she states that the patient has cancelled some appointments with them recently, so they are going to try to get him into the clinic. Impression Primary Impression: Compression of thoracic vertebra Additional Impression: Compression of lumbar vertebra Scribe Attestation The scribe's documentation has been prepared under my direction and personally reviewed by me in its entirety. I confirm that the note above accurately reflects all work, treatment, procedures, and medical decision making performed by me. Departure Information Dispostion Home / Self-Care Referrals Sonido Riojas M.D. (PCP) Bari Yang D.O. Sefter, John C., DO Forms HOME CARE DOCUMENTATION FORM, IMPORTANT VISIT INFORMATION Patient Instructions ED Fx Comp Vertebral, [facility] Additional Instructions Please follow up with our property preservation specialist, Dr. Mata, as well as with your oncologist, Dr. Raya, in the next 1-2 days for re-evaluation. You were found to have multiple compression fractures of your thoracic and lumbar vertebrae. Continue your current medications as prescribed. Oxycodone for breakthrough pain. Drink plenty of fluids to ensure hydration. Return to the emergency department for worsening symptoms as described in the accompanying instructions. Problem Qualifiers
--- NOTE | 2017-06-10 16:01 | DIAGNOSTIC IMAGING REPORT ---
THORACIC SPINE WITHOUT CT DOSE: HISTORY: Pain compression fracture TECHNIQUE: Multiaxial CT images of the thoracic spine were performed and reformatted in the sagittal and coronal plane without the use of contrast. A dose lowering technique was utilized adhering to the principles of ALARA. COMPARISON: 06/03/2017 FINDINGS: Significant compression fractures of T8 and T10. HISTORY: Loss of vertebral body height is 80%. There is slight posterior retropulsion of the posterior margins of the vertebral body by approximately 2.5 mm. No additional compression deformity is identified. There are degenerative changes throughout the entire thoracic region. There is no evidence for severe compromise of the spinal canal. There is pulmonary apical fibrotic change. There are degenerative changes of the posterior and lateral elements. There is a very small bilateral pleural effusions. IMPRESSION: 1. Severe compression deformities of T8 and T10. 2. Moderate degenerative disc change throughout the entire thoracic region. 3. No evidence for significant compromise of the spinal canal. 4. Very small bilateral pleural effusions. The above report was generated using voice recognition software. It may contain grammatical, syntax or spelling errors. Electronically signed by: Mike Thornton M.D. 06/10/2017 4:00 PM Dictated Date/Time: 06/10/2017 3:55 PM
--- NOTE | 2017-06-10 16:03 | DIAGNOSTIC IMAGING REPORT ---
LUMBAR SPINE WITHOUT HISTORY: 81 years-old Male PAIN known comp fx acute low back pain COMPARISON: Thoracic spine radiographs 06/03/2017, PET CT 11/19/2016, CT abdomen and pelvis 09/09/2016 TECHNIQUE: Multiple axial CT images of the lumbar spine were obtained without IV contrast. Coronal and sagittal reformatted images were obtained from the axial data set and were submitted for review. A dose lowering technique was used consistent with the principals of ALARA. FINDINGS: The bones appear very demineralized and are likely osteoporotic. 25% anterior endplate compression deformity of the L2 vertebral body appears acute with 3 mm retropulsion involving the superior aspect of the posterior endplate. No significant central canal narrowing identified. Additionally, there is a compression fracture of the L5 vertebral body which is new from comparison PET CT 11/19/2016 with 60% central loss of vertebral body height. 4 mm retropulsion involving the superior aspect of the posterior endplate without significant central canal narrowing. Linear irregular sclerosis and lucencies are seen within the bilateral sacroiliac suggesting acute subacute insufficiency fractures without displacement. No acute subluxation or additional fracture identified. The transverse processes appear intact. Trace left and small right pleural effusions. Small sliding-type hiatal hernia with fluid within the distal esophagus. Extensive calcification of the aorta without aneurysm. Calcifications about the bilateral kidneys suggests renal calcifications or nephrolithiasis. IMPRESSION: 1. Acute 25% anterior endplate compression deformity of the L2 vertebral body with 3 mm retropulsion. No significant central canal narrowing. 2. Age-indeterminate compression deformity of the L5 vertebral body is new from comparison study 11/19/2016 and demonstrates 4 mm retropulsion without significant central canal narrowing. Correlate with point tenderness. 3. Acute to subacute appearing bilateral nondisplaced sacral insufficiency fractures. 4. Trace left and small right pleural effusions. The above report was generated using voice recognition software. It may contain grammatical, syntax or spelling errors. Electronically signed by: Tyrese Savage M.D. 06/10/2017 4:02 PM Dictated Date/Time: 06/10/2017 3:55 PM
[2017-06-10] MEDS ORDERED: ASPI81TA28 PO (17:03)
[2017-06-10] MEDS ORDERED: FERR1TAB23 PO (17:08)
[2017-06-10] MEDS ORDERED: CZR50 PO (17:08)
[2017-06-10] MEDS ORDERED: ULT50 PO (17:10)
[2017-06-10] MEDS ORDERED: ACET-1256 PO (17:10)
[2017-06-10] MEDS ORDERED: OXYCODONE IR HOME PACK PO ONE (17:15)
[2017-06-10 17:55] VITALS: BP 121/70; PULSE 94; TEMP 36.8; O2SAT 95
[2017-06-10] MEDS ORDERED: PRLSR20 PO (20:02)
== END 2017-06-10 17:56 | disposition home or self-care (01) ==
LOC: C.EDB 14:35
DX: S32.020D Wedge compression fracture of second lumbar vertebra, subsequent encounter for fracture with routine healing (principal); S32.050D Wedge compression fracture of fifth lumbar vertebra, subsequent encounter for fracture with routine healing; S32.19XD Other fracture of sacrum, subsequent encounter for fracture with routine healing; S22.060D Wedge compression fracture of T7-T8 vertebra, subsequent encounter for fracture with routine healing; S22.070D Wedge compression fracture of T9-T10 vertebra, subsequent encounter for fracture with routine healing; X50.0XXD Overexertion from strenuous movement or load, subsequent encounter; Z93.2 Ileostomy status; Z79.899 Other long term (current) drug therapy; Z85.038 Personal history of other malignant neoplasm of large intestine; I25.10 Atherosclerotic heart disease of native coronary artery without angina pectoris; E78.00 Pure hypercholesterolemia, unspecified; I10 Essential (primary) hypertension; E03.9 Hypothyroidism, unspecified; Z87.442 Personal history of urinary calculi; I25.2 Old myocardial infarction; Z80.9 Family history of malignant neoplasm, unspecified; Z83.3 Family history of diabetes mellitus; Z84.1 Family history of disorders of kidney and ureter; Z79.82 Long term (current) use of aspirin; Z88.1 Allergy status to other antibiotic agents; Z88.0 Allergy status to penicillin; Z88.2 Allergy status to sulfonamides; Z88.5 Allergy status to narcotic agent; Z88.8 Allergy status to other drugs, medicaments and biological substances

== ENCOUNTER 2017-06-18 17:52 | Emergency (ER) | payer OTHER ==
[~2017-06-18] VITALS: Ht 165.1 cm; Wt 58.0 kg
[~2017-06-18 17:52] MED LIST changes: +ACET-1256 PO; -ASPI-320 PO; +ASPI81TA28 PO; +CZR50 PO; +FERR1TAB23 PO; -FRRS300 PO; -LEVO1TAB33 PO; +PRLSR20 PO; +ULT50 PO
[2017-06-18 18:10] VITALS: TEMP 36.7; Ht 165.1 cm; Wt 58.0 kg
[2017-06-18] MEDS ORDERED: ZCR40 PO (18:50)
[2017-06-18] MEDS ORDERED: ONDA-63 PO (18:50)
[2017-06-18] MEDS ORDERED: MAGN400T5 PO (18:50)
[2017-06-18] MEDS ORDERED: FLM4 PO (18:50)
[2017-06-18] MEDS ORDERED: OMEP20CA9 PO (18:50)
--- NOTE | 2017-06-18 19:19 | EMERGENCY ROOM VISIT NOTE ---
History First contact with patient: 18:20 Chief Complaint: DEHYDRATION Stated Complaint: SEVERLY DEHYDRATED Nursing Triage Summary: PAtient and family feel he is dehydrated due to poor PO intake due to back pain. History of Present Illness 81M with a PMHx of Stave IV colon cancer, [place], recent compression fracture in 1992 who presents to the Emergency Room with complaints of being dehydration. He is present with his and daughter who add to the history. Patient states that he hasn't been drinking as much as normal because he has been feeling full. This is a chronic issue. Per daughter he was on Marinol BID but that gave him a dry mouth so they switched it to daily. He also was seen recently for a compression fracture and is taking Tylenol, Ultram and Oxycodone for his pain. Pt is ambulating normally and feels otherwise well. There may be decreased output from his ileostomy however it was overflowing this AM and required changing. Patient is not vomiting. He just feels full. PT does not feel otherwise ill. Ostomy output in terms of consistency and color has not chance. Family does not have home services and doesn't want home services. Review of Systems See HPI for pertinent positives and negatives. A total of ten systems were reviewed and were otherwise negative. Constitutional: No fever, No chills Respiratory: No cough, No sputum, No wheezing, No shortness of breath, No dyspnea on exertion Cardiovascular: No chest pain Abdomen: No pain, No nausea, No vomiting, No diarrhea, No constipation Musculoskeletal: + joint pain (back pain) Genitourinary - Male: No hematuria Endocrine: No fatigue Integumentary: No rash Past Medical/Surgical History Medical Problems: (1) Colon cancer (2) Colon carcinoma (3) Coronary artery disease (4) Diarrhea (5) Hip fracture (6) Hypercholesteremia (7) Hypertension (8) Hypothyroidism (9) Ingrown nail of great toe of left foot (10) Kidney stones (11) Myocardial infarct (12) Pleural effusion (13) SBO (small bowel obstruction) (14) Vertigo Family History Cancer Diabetes mellitus FHx: heart disease FHx: kidney disease/stones Social History Smoking Status: Former Smoker Alcohol Use: none Drug Use: none Marital Status: Housing Status: lives with significant other Occupation Status: retired Current/Historical Medications Scheduled Acetaminophen (Tylenol), 500 MG PO UD Aspirin (Aspirin Ec), 81 MG PO DAILY Capecitabine (Capecitabine), 500 MG PO BID UD Dronabinol (Dronabinol), 2.5 MG PO BID Ferrous Sulfate (Iron), 325 MG PO DAILY Levothyroxine Sodium (Levothyroxine Sodium), 112 MCG PO DAILY Losartan Potassium (Losartan Potassium), 50 MG PO DAILY Magnesium Oxide (Mag-Ox), 400 MG PO DAILY Nutritional Supplements (Boost), 1 CAN PO BID Omeprazole (Prilosec), 20 MG PO QAM Simvastatin (Simvastatin), 40 MG PO QPM Tamsulosin HCl (Tamsulosin HCl), 0.4 MG PO QD@1200 Scheduled PRN Nitroglycerin (Nitrostat), 0.4 MG UT UD PRN for Chest Pain Ondansetron (Ondansetron HCl), 8 MG PO Q8 PRN for Nausea Tramadol HCl (Tramadol HCl), 50 MG PO Q8 PRN for Pain Physical Exam Vital Signs Date Time Temp Pulse Resp B/P (MAP) Pulse Ox O2 Delivery O2 Flow Rate FiO2 06/18/17 20:30 73 106/67 94 Room Air 72 136/77 73 127/77 06/18/17 19:04 72 16 127/72 97 Room Air 06/18/17 18:29 75 06/18/17 18:10 36.7 81 18 115/70 94 Room Air Physical Exam Gen: No acute distress. Thin male. HEENT: Head - normocephalic and atraumatic. Pupils are equal, round, and reactive to light. Extraocular eye muscles are intact and sclera are anicteric. Ears - bilaterally patent canals with noninjected tympanic membranes and no evidence of hemotympanum. Nose - moist nasal mucosa without discharge. Mouth - moist buccal mucosa. Oropharynx is nonerythematous and there is no tonsillar exudate or edema noted. Neck: Supple; no JVD, nuchal rigidity, cervical lymphadenopathy, or auscultated bruits. Heart: Regular rate and rhythm. There is a normal S1 and S2 with no murmurs, clicks, or gallops appreciated. Lungs: Clear to auscultation bilaterally with no wheezes, rales, or rhonchi. Abdomen: Soft, completely nontender, distended, with good bowel sounds. Ostomy is appears pink draining green and brown fecal material. There are no palpable pulsatile masses or hepatosplenomegaly. There is no guarding, rigidity , or rebound noted. Extremities: No evidence of cyanosis, clubbing, or edema. There are easily palpable peripheral pulses. 2+ pitting edema in the LE bilaterally. Neuro:The patient is awake and alert, oriented to day, time, and place. Muscle strength is 5/5 in all 4 extremities. 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 There are no cerebellar signs. Medical Decision & Procedures ER Provider Diagnostic Interpretation: ABDOMEN 2VIEW W/PA CHEST RTN HISTORY: 81 years-old Male SBO acute abdominal distention with concern for small bowel obstruction COMPARISON: Chest radiograph 04/23/2017, lumbar spine CT 06/10/2017 TECHNIQUE: PA view of the chest with erect and supine views of the abdomen FINDINGS: Cardiac silhouette is within normal limits. Atherosclerosis of the aorta. Calcified hilar lymph nodes. Biapical pleural-parenchymal scarring without pneumothorax or overt pulmonary edema. Trace bilateral pleural effusions with subsegmental bibasilar opacities favoring atelectasis. Degenerative changes of the shoulders and spine. Moderate stool volume throughout the colon with punctate radiodensity seen within the transverse colon. No pneumatosis or pneumoperitoneum. Radiodensities project over the bilateral renal shadows suggesting kidney stones measuring up to 5 mm within the inferior pole right kidney. Right pelvic calcifications are seen with vascular calcifications. Right hip arthroplasty. Degenerative changes of the pelvis and spine. IMPRESSION: 1. Nonobstructive bowel gas pattern without pneumatosis. 2. Suggested constipation. 3. Probable nephrolithiasis. 4. Trace pleural effusions with bibasilar atelectasis. Laboratory Results 06/18/17 19:27 Red Blood Count 3.57, Mean Corpuscular Volume 86.0, Mean Corpuscular Hemoglobin 27.7, Mean Corpuscular Hemoglobin Concent 32.2, Mean Platelet Volume 9.7, Neutrophils (%) (Auto) 66.2, Lymphocytes (%) (Auto) 21.9, Monocytes (%) (Auto) 11.1, Eosinophils (%) (Auto) 0.4, Basophils (%) (Auto) 0.1, Neutrophils # (Auto ) 5.19, Lymphocytes # (Auto) 1.72, Monocytes # (Auto) 0.87, Eosinophils # (Auto ) 0.03, Basophils # (Auto) 0.01 06/18/17 19:27 Test 06/18/17 19:02 06/18/17 19:27 White Blood Count 7.84 K/uL (4.8-10.8) Red Blood Count 3.57 M/uL (4.7-6.1) Hemoglobin 9.9 g/dL (14.0-18.0) Hematocrit 30.7 % (42-52) Mean Corpuscular Volume 86.0 fL (80-100) Mean Corpuscular Hemoglobin 27.7 pg (25-34) Mean Corpuscular Hemoglobin Concent 32.2 g/dl (32-36) Platelet Count 362 K/uL (130-400) Mean Platelet Volume 9.7 fL (7.4-10.4) Neutrophils (%) (Auto) 66.2 % Lymphocytes (%) (Auto) 21.9 % Monocytes (%) (Auto) 11.1 % Eosinophils (%) (Auto) 0.4 % Basophils (%) (Auto) 0.1 % Neutrophils # (Auto) 5.19 K/uL (1.4-6.5) Lymphocytes # (Auto) 1.72 K/uL (1.2-3.4) Monocytes # (Auto) 0.87 K/uL (0.11-0.59) Eosinophils # (Auto) 0.03 K/uL (0-0.5) Basophils # (Auto) 0.01 K/uL (0-0.2) RDW Standard Deviation 74.2 fL (36.4-46.3) RDW Coefficient of Variation 23.8 % (11.5-14.5) Immature Granulocyte % (Auto) 0.3 % Immature Granulocyte # (Auto) 0.02 K/uL (0.00-0.02) Anisocytosis PRESENT Prothrombin Time 10.6 SECONDS (9.0-12.0) Prothromb Time International Ratio 1.0 (0.9-1.1) Activated Partial Thromboplast Time 31.5 SECONDS (21.0-31.0) Partial Thromboplastin Ratio 1.2 Anion Gap 6.0 mmol/L (3-11) Est Creatinine Clear Calc Drug Dose 62.3 ml/min Estimated GFR () 99.0 Estimated GFR (Non- 85.4 BUN/Creatinine Ratio 16.8 (10-20) Calcium Level 8.8 mg/dl (8.5-10.1) Magnesium Level 1.4 mg/dl (1.8-2.4) Total Bilirubin 0.4 mg/dl (0.2-1) Direct Bilirubin 0.1 mg/dl (0-0.2) Aspartate Amino Transf (AST/SGOT) 26 U/L (15-37) Alanine Aminotransferase (ALT/SGPT) 24 U/L (12-78) Alkaline Phosphatase 159 U/L (45-117) Total Protein 6.5 gm/dl (6.4-8.2) Albumin 2.6 gm/dl (3.4-5.0) Medications Administered Medications (Trade) Dose Ordered Sig/Lenka Route Start Time Stop Time Status Last Admin Dose Admin Magnesium Sulfate (Magnesium Sulfate 1gm / D5W) 2 gm NOW STAT IV 06/18/17 20:31 06/18/17 20:33 DC 06/18/17 20:40 2 GM Sodium Chloride 1,000 ml @ 125 mls/hr Q8H STAT IV 06/18/17 20:31 06/19/17 04:30 06/18/17 20:41 125 MLS/HR Sodium Chloride 250 ml @ 999 mls/hr Q16M STAT IV 06/18/17 20:31 06/18/17 20:46 DC 06/18/17 20:31 999 MLS/HR Fentanyl Citrate (Fentanyl Inj) 25 mcg NOW STAT IV 06/18/17 20:33 06/18/17 20:34 DC 06/18/17 20:40 25 MCG Procedure Normal sinus rhythm Left axis deviation Right bundle branch block Anterolateral infarct (cited on or before 17-JAN-2017) Abnormal ECG When compared with ECG of 02-FEB-2017 14:26, Criteria for Inferior infarct are no longer Present T wave amplitude has decreased in Inferior leads Medical Decision The patient's care and disposition was discussed with Dr. Toney, Attending ED Physician. This is a 81M with poor PO intake. Differential diagnosis include dehydration, acute kidney injury, electrolyte abnormalities, SBO, diarrhea, orthostasis among others. Triage Nursing notes were reviewed. ED Course included an extensive history and physical exam and labs. 6:30pm - Patient was seen and examined by resident. 7:00pm - Discussed case with Dr. Toney. 8:30pm - Labs reviewed and pt given IV Mag oxide and IVF. KUB ordered for obstruction. 9:30pm - Results reviewed with family. The pt was informed about the findings as listed above. All questions were answered. Return instructions were outlined and the patient was discharged in good condition. The patient was referred to PCP for recheck of the current condition. Head Trauma GCS Score: 15 Impression Primary Impression: Dehydration Departure Information Dispostion Home / Self-Care Condition GOOD Prescriptions Tramadol (Ultram) 50 Mg Tab 50 MG PO BID Y for Pain, #20 TAB Prov: Mike Lynch M.D. 06/18/17 Referrals Sonido Riojas M.D. (PCP) Patient Instructions ED Dehydration, My [facility] Additional Instructions The lab work including a CBC and a CMP were grossly normal. The only abnormality seen was a Magnesium level of 1.4. This was repleted by IV magnesium. A bolus of 250mls of Normal Saline (IV Fluids) Solution was given in the ER as well. An X-ray of your abdomen showed no evidence of small bowel obstruction. Please stay well hydrated. You may resume all of your home medications including Marinol. You may also increase the Marinol to twice daily to stimulate the appetite. We recommend following up with your Primary Care Provider regarding ways to combat dry mouth that occurs with Marinol. You are being discharge with 20 tablets of Ultram. You may take an additional 2 tablets of Ultram per day for breakthrough pain. Please follow up with your Primary care provider for an adjustment of the dosing of your Ultram before your 20 tablets run out. A case management request for additional home services was offered and declined during this visit. If you change your mind please follow up with your Primary Care Provider regarding additional home services that you may be eligible for. Resident Involvement: Resident Care Provided Care Provided: Adult ED
[2017-06-18 19:56] LABS: BASO % 0.1 %; BASO ABS # 0.01 K/uL (0-0.2); EOS % 0.4 %; EOS ABS # 0.03 K/uL (0-0.5); HEMATOCRIT 30.7 % (42-52); HEMOGLOBIN 9.9 g/dL (14.0-18.0); IG# 0.02 K/uL (0.00-0.02); LYMPH % 21.9 %; LYMPH ABS # 1.72 K/uL (1.2-3.4); MEAN CORPUSCULAR HEMOGLOBIN 27.7 pg (25-34); MEAN CORPUSCULAR HGB CONC 32.2 g/dl (32-36); MEAN PLATELET VOLUME 9.7 fL (7.4-10.4); MONO % 11.1 %; MONO ABS # 0.87 K/uL (0.11-0.59); NEUT % 66.2 %; NEUT ABS # 5.19 K/uL (1.4-6.5); PLATELET COUNT 362 K/uL (130-400); RED CELL DISTRIBUTION WIDTH CV 23.8 % (11.5-14.5); RED CELL DISTRIBUTION WIDTH SD 74.2 fL (36.4-46.3); WHITE BLOOD COUNT 7.84 K/uL (4.8-10.8)
[2017-06-18 20:13] LABS: PTT PATIENT 31.5 SECONDS (21.0-31.0)
[2017-06-18 20:18] LABS: ALBUMIN 2.6 gm/dl (3.4-5.0); CALCIUM 8.8 mg/dl (8.5-10.1); CREATININE 0.75 mg/dl (0.60-1.40); POTASSIUM 3.6 mmol/L (3.5-5.1)
[2017-06-18 20:20] LABS: TOTAL PROTEIN 6.5 gm/dl (6.4-8.2)
[2017-06-18] MEDS ORDERED: SODIUM CHLORIDE 0.9% 1000ML 1,000 ML IV STA (20:31)
[2017-06-18] MEDS ORDERED: SODIUM CHLORIDE 0.9% 250ML 250 ML IV STA (20:31)
[2017-06-18] MEDS ORDERED: MAGNESIUM SULFATE 1GM / D5W 1 GM BAG IV STA (20:31)
[2017-06-18] MEDS ORDERED: FENTANYL CITRATE INJ 50 MCG/1 ML 2 ML VIAL IV STA (20:33)
--- NOTE | 2017-06-18 21:34 | DIAGNOSTIC IMAGING REPORT ---
ABDOMEN 2VIEW W/PA CHEST RTN HISTORY: 81 years-old Male SBO acute abdominal distention with concern for small bowel obstruction COMPARISON: Chest radiograph 04/23/2017, lumbar spine CT 06/10/2017 TECHNIQUE: PA view of the chest with erect and supine views of the abdomen FINDINGS: Cardiac silhouette is within normal limits. Atherosclerosis of the aorta. Calcified hilar lymph nodes. Biapical pleural-parenchymal scarring without pneumothorax or overt pulmonary edema. Trace bilateral pleural effusions with subsegmental bibasilar opacities favoring atelectasis. Degenerative changes of the shoulders and spine. Moderate stool volume throughout the colon with punctate radiodensity seen within the transverse colon. No pneumatosis or pneumoperitoneum. Radiodensities project over the bilateral renal shadows suggesting kidney stones measuring up to 5 mm within the inferior pole right kidney. Right pelvic calcifications are seen with vascular calcifications. Right hip arthroplasty. Degenerative changes of the pelvis and spine. IMPRESSION: 1. Nonobstructive bowel gas pattern without pneumatosis. 2. Suggested constipation. 3. Probable nephrolithiasis. 4. Trace pleural effusions with bibasilar atelectasis. The above report was generated using voice recognition software. It may contain grammatical, syntax or spelling errors. Electronically signed by: Tyrese Savage M.D. 06/18/2017 9:33 PM Dictated Date/Time: 06/18/2017 9:29 PM
[2017-06-18] MEDS ORDERED: TRAM-10 PO (21:58)
[2017-06-18 22:47] VITALS: BP 136/80; PULSE 76; O2SAT 97
--- NOTE | 2017-06-19 16:33 | EMERGENCY ROOM VISIT NOTE ---
ED Visit Note First contact with patient: 18:19 Resident Physician Supervision Note: I interviewed and examined the patient. Discussed with Dr. Lynch and agree with findings and plan as documented in the note. Any exceptions or clarifications are listed here: [None] Documented By: Brit Toney
== END 2017-06-18 22:57 | disposition home or self-care (01) ==
LOC: C.EDB 17:53 → C.EDA 22:57
DX: E86.0 Dehydration (principal); M54.9 Dorsalgia, unspecified; R60.0 Localized edema; I25.10 Atherosclerotic heart disease of native coronary artery without angina pectoris; E78.5 Hyperlipidemia, unspecified; I10 Essential (primary) hypertension; E03.9 Hypothyroidism, unspecified; Z93.2 Ileostomy status; Z85.038 Personal history of other malignant neoplasm of large intestine; Z87.891 Personal history of nicotine dependence; Z79.82 Long term (current) use of aspirin; Z79.899 Other long term (current) drug therapy

== ENCOUNTER 2017-06-25 12:29 | Observation (INO) | payer OTHER ==
[~2017-06-25] VITALS: Ht 177.8 cm; Wt 50.0 kg
[~2017-06-25 12:29] MED LIST changes: +FLM4 PO; +MAGN400T5 PO; -MAGN400T6 PO; +OMEP20CA9 PO; -ONDA-170 PO; +ONDA-63 PO; -PRLSR20 PO; -SIMV40TA2 PO; -TAMS0.4C38 PO; +TRAM-10 PO; +ZCR40 PO
[2017-06-25] MEDS ORDERED: SODIUM CHLORIDE 0.9% 1000ML 1,000 ML IV STA (12:41)
[2017-06-25] MEDS ORDERED: HYDROmorphone INJ 0.5 MG/0.5 ML SYR IV STA ×2 (12:41→16:34)
[2017-06-25 12:54] LABS: BASO % 0.1 %; BASO ABS # 0.01 K/uL (0-0.2); HEMATOCRIT 34.9 % (42-52); HEMOGLOBIN 11.6 g/dL (14.0-18.0); IG# 0.05 K/uL (0.00-0.02); LYMPH % 12.2 %; LYMPH ABS # 1.45 K/uL (1.2-3.4); MEAN CELL VOLUME 85.5 fL (80-100); MEAN CORPUSCULAR HEMOGLOBIN 28.4 pg (25-34); MEAN CORPUSCULAR HGB CONC 33.2 g/dl (32-36); MEAN PLATELET VOLUME 9.2 fL (7.4-10.4); MONO % 7.3 %; MONO ABS # 0.87 K/uL (0.11-0.59); NEUT ABS # 9.46 K/uL (1.4-6.5); PLATELET COUNT 574 K/uL (130-400); RED CELL DISTRIBUTION WIDTH CV 22.7 % (11.5-14.5); RED CELL DISTRIBUTION WIDTH SD 71.4 fL (36.4-46.3); WHITE BLOOD COUNT 11.84 K/uL (4.8-10.8)
[2017-06-25 13:16] LABS: ALBUMIN 2.7 gm/dl (3.4-5.0); CALCIUM 9.2 mg/dl (8.5-10.1); CREATININE 0.94 mg/dl (0.60-1.40); POTASSIUM 3.9 mmol/L (3.5-5.1); TOTAL PROTEIN 7.8 gm/dl (6.4-8.2)
--- NOTE | 2017-06-25 14:01 | DIAGNOSTIC IMAGING REPORT ---
LUMBAR SPINE 2 OR 3 VIEWS CLINICAL HISTORY: severe back pain COMPARISON STUDY: CT scan dated June 10, 2017 FINDINGS: Subacute L2 and L5 compression fractures are again evident. The L2 fracture appears slightly progressive. The bones are osteopenic. There are no subluxations. There is no pathologic bowel dilatation. There is scattered opaque densities throughout the bowel. There is mild fecal retention. There are multiple pelvic basin calcifications. IMPRESSION: L2 and L5 vertebral body fractures are again noted. There is slight progressive loss in height of the L2 vertebral body. Electronically signed by: Oscar Gentile M.D. 06/25/2017 2:00 PM Dictated Date/Time: 06/25/2017 1:56 PM
--- NOTE | 2017-06-25 14:02 | DIAGNOSTIC IMAGING REPORT ---
THORACIC SPINE 3 VIEWS ROUTINE HISTORY: 81 years-old Male severe back pain acute severe back pain COMPARISON: Lumbar spine radiographs of same day, thoracic spine radiograph 06/03/2017, CT thoracic spine 06/10/2017 TECHNIQUE: 3 views of the thoracic spine FINDINGS: Bones appear moderately demineralized. Chronic compression deformities of the T8 and T10 vertebral bodies appear unchanged. T1 is partially obscured by the patient's shoulders. No new acute fracture or subluxation is identified. Mild dextroscoliosis of the midthoracic spine. Atherosclerosis of the aorta. Mild biapical pleural thickening/pleural parenchymal scarring. Mild left hemidiaphragm elevation. Multilevel mild spondylitic spurring is noted without significant intervertebral disc space narrowing. IMPRESSION: 1. No acute fracture or subluxation. 2. Unchanged appearance of the chronic compression deformities at T8 and T10. The above report was generated using voice recognition software. It may contain grammatical, syntax or spelling errors. Electronically signed by: Tyrese Savage M.D. 06/25/2017 2:00 PM Dictated Date/Time: 06/25/2017 1:56 PM
--- NOTE | 2017-06-25 16:00 | DIAGNOSTIC IMAGING REPORT ---
PELVIS ONE VIEW HISTORY: back pain COMPARISON: Pelvis 08/09/2014. FINDINGS: The bones are osteopenic. Deformity within the right pubic ring favors an old, healed fracture. No definite acute fracture or dislocation within the pelvis or hips. Mild osteoarthritis within the left hip. The visualized sacrum appears intact. Pelvic calcifications remain unchanged. There is a right hip hemiarthroplasty. The hardware appears intact. IMPRESSION: 1. No definite fracture or dislocation within the pelvis or hips. 2. Mild deformity within the right pubic ring favoring an old, healed fracture. 3. Diffuse osteopenia. 4. Right hip hemiarthroplasty. The hardware appears intact. Electronically signed by: Yunier Corona M.D. 06/25/2017 3:59 PM Dictated Date/Time: 06/25/2017 3:56 PM
[2017-06-25] MEDS ORDERED: MAGNESIUM HYDROXIDE SUSP 30 ML UDC PO PRN (17:15)
[2017-06-25] MEDS ORDERED: ONDANSETRON INJ 2 MG/ML 2 ML VIAL IV PRN (17:15)
[2017-06-25] MEDS ORDERED: NITROGLYCERIN 0.4 MG SL PER TAB CHARGE UT PRN (17:15)
[2017-06-25] MEDS ORDERED: CAPECITABINE 500 MG PO SCH (17:15)
--- NOTE | 2017-06-25 17:46 | History and Physical ---
History & Physical Date & Time of Service: June 25, 2017 at 17:08 Chief Complaint: Back Pain Primary Care Physician: Sonido Riojas M.D. History of Present Illness Source: patient, hospital records, other 81 y/o M Hx metastatic colon CA with a colostomy, CAD, HTN, HPL, hypothyroidism , lumbar compression fracture. Presents with progressive lower back pain. He had a PET scan one day prior which precipitated his pain due to positioning. He denies any current CP, SOB, nausea, vomiting, dysuria or fevers. Past Medical/Surgical History 1) CAD - [place] 2) Colon CA - he has held chemo for the past 2 weeks pending an oncology appt and review or recent PET scan results 3) Hyponatremia 4) Lumbar compression fractures L2,L5 5) HTN 6) HPL 7) Hypothyroidism Surgical: Colostomy Family History Cancer Diabetes mellitus FHx: heart disease FHx: kidney disease/stones Social History Smoking Status: Former Smoker Drug Use: none Marital Status: Housing status: lives with significant other Occupational Status: retired Immunizations History of Influenza Vaccine: Yes Influenza Vaccine Date: Nov 03, 2012 History of Tetanus Vaccine?: UTD History of Pneumococcal: Yes History of Hepatitis B Vaccine: Unknown Allergies Coded Allergies: Clarithromycin (Verified Allergy, Severe, "MAJOR RXN" ?, 06/25/17) Penicillins (Verified Allergy, Severe, "MAJOR RXN" ?, 06/25/17) Sulfa Antibiotics (Verified Allergy, Severe, "SULFA DRUGS": "MAJOR RXN"?, 06/25/17) Sulfonylureas (Verified Allergy, Intermediate, RASH, 06/25/17) Cephalosporins (Verified Allergy, Unknown, ?, 06/25/17) Streptokinase (Verified Allergy, Unknown, ?, 06/25/17) Codeine (Verified Adverse Reaction, Mild, NAUSEA / VOMITING, 06/25/17) Diltiazem (Verified Adverse Reaction, Mild, FLUSHING, 06/25/17) Morphine (Verified Adverse Reaction, Mild, N/V, 06/25/17) Home Medications Scheduled Acetaminophen (Tylenol), 500 MG PO UD Capecitabine (Capecitabine), 500 MG PO BID UD Dronabinol (Dronabinol), 2.5 MG PO BID Ferrous Sulfate (Iron), 325 MG PO DAILY Levothyroxine Sodium (Levothyroxine Sodium), 112 MCG PO DAILY Losartan Potassium (Losartan Potassium), 50 MG PO DAILY Magnesium Oxide (Mag-Ox), 400 MG PO DAILY Nutritional Supplements (Boost), 1 CAN PO BID Omeprazole (Prilosec), 20 MG PO QAM Simvastatin (Simvastatin), 40 MG PO QPM Tamsulosin HCl (Tamsulosin HCl), 0.4 MG PO QD@1200 Scheduled PRN Nitroglycerin (Nitrostat), 0.4 MG UT UD PRN for Chest Pain Ondansetron (Ondansetron HCl), 8 MG PO Q8 PRN for Nausea Tramadol HCl (Tramadol HCl), 50 MG PO Q8 PRN for Pain Review of Systems Constitutional: No fever, No chills, No sweats Eyes: No worsening of vision ENT: No hearing loss, No unusual epistaxis, No nasal symptoms Respiratory: No cough, No sputum, No wheezing Cardiovascular: No chest pain Abdomen: No pain, No nausea, No vomiting Musculoskeletal: + joint pain (Back pain as above) Genitourinary - Male: No hematuria, No dysuria Neurologic: + weakness (chronic), No memory loss, No paralysis Psychiatric: No depression symptoms Endocrine: No fatigue Hematologic / Lymphatic: No abnormal bleeding/bruising Integumentary: No rash Physical Exam Vital Signs Date Time Temp Pulse Resp B/P (MAP) Pulse Ox O2 Delivery O2 Flow Rate FiO2 06/25/17 15:59 88 18 111/63 92 Room Air 06/25/17 14:22 86 16 108/64 93 Room Air 06/25/17 12:39 36.9 94 18 113/75 94 Room Air General Appearance: + pertinent finding (Very thin, eldelry male in no distress ) Head: normocephalic Eyes: normal inspection ENT: normal ENT inspection, pharynx normal Neck: supple, thyroid normal Respiratory/Chest: chest non-tender, lungs clear, normal breath sounds Cardiovascular: regular rate, rhythm, no edema, no gallop Abdomen/GI: normal bowel sounds, non tender, soft Back: normal inspection, no CVA tenderness Extremities/Musculoskelatal: normal inspection, no calf tenderness, normal capillary refill Neurologic/Psych: general practitioner II-XII nml as tested, no motor/sensory deficits, alert, oriented x 3 Skin: normal color Diagnostics Laboratory Results Results Past 24 Hours Test 06/25/17 12:45 06/25/17 16:45 Range/Units White Blood Count 11.84 4.8-10.8 K/uL Red Blood Count 4.08 4.7-6.1 M/uL Hemoglobin 11.6 14.0-18.0 g/dL Hematocrit 34.9 42-52 % Mean Corpuscular Volume 85.5 80-100 fL Mean Corpuscular Hemoglobin 28.4 25-34 pg Mean Corpuscular Hemoglobin Concent 33.2 32-36 g/dl Platelet Count 574 130-400 K/uL Mean Platelet Volume 9.2 7.4-10.4 fL Neutrophils (%) (Auto) 80.0 % Lymphocytes (%) (Auto) 12.2 % Monocytes (%) (Auto) 7.3 % Eosinophils (%) (Auto) 0.0 % Basophils (%) (Auto) 0.1 % Neutrophils # (Auto) 9.46 1.4-6.5 K/uL Lymphocytes # (Auto) 1.45 1.2-3.4 K/uL Monocytes # (Auto) 0.87 0.11-0.59 K/uL Eosinophils # (Auto) 0.00 0-0.5 K/uL Basophils # (Auto) 0.01 0-0.2 K/uL RDW Standard Deviation 71.4 36.4-46.3 fL RDW Coefficient of Variation 22.7 11.5-14.5 % Immature Granulocyte % (Auto) 0.4 % Immature Granulocyte # (Auto) 0.05 0.00-0.02 K/uL Anisocytosis PRESENT Ovalocytes 1+ Sodium Level 136 136-145 mmol/L Potassium Level 3.9 3.5-5.1 mmol/L Chloride Level 98 98-107 mmol/L Carbon Dioxide Level 26 21-32 mmol/L Anion Gap 12.0 3-11 mmol/L Blood Urea Nitrogen 17 7-18 mg/dl Creatinine 0.94 0.60-1.40 mg/dl Est Creatinine Clear Calc Drug Dose 44.7 ml/min Estimated GFR () 87.2 Estimated GFR (Non- 75.2 BUN/Creatinine Ratio 18.1 10-20 Random Glucose 139 70-99 mg/dl Calcium Level 9.2 8.5-10.1 mg/dl Total Bilirubin 0.5 0.2-1 mg/dl Direct Bilirubin 0.1 0-0.2 mg/dl Aspartate Amino Transf (AST/SGOT) 26 15-37 U/L Alanine Aminotransferase (ALT/SGPT) 24 12-78 U/L Alkaline Phosphatase 177 45-117 U/L Total Protein 7.8 6.4-8.2 gm/dl Albumin 2.7 3.4-5.0 gm/dl Lipase 53 73-393 U/L Urine Color YELLOW Urine Appearance CLOUDY CLEAR Urine pH 5.0 4.5-7.5 Urine Specific [place] 1.024 1.000-1.030 Urine Protein TRACE NEG Urine Glucose (UA) NEG NEG Urine Ketones 2+ NEG Urine Occult Blood NEG NEG Urine Nitrite NEG NEG Urine Bilirubin NEG NEG Urine Urobilinogen NEG NEG Urine Leukocyte Esterase NEG NEG Urine WBC (Auto) 1-5 0-5 /hpf Urine RBC (Auto) 0-4 0-4 /hpf Urine Hyaline Casts (Auto) 10-30 0-5 /lpf Urine Epithelial Cells (Auto) 20-30 0-5 /lpf Urine Bacteria (Auto) NEG NEG Diagnostic Radiology Lumbar XR: L2 and L5 vertebral body fractures are again noted. There is slight progressive loss in height of the L2 vertebral body. Impression Assessment and Plan 81 y/o M Hx metastatic colon CA with a colostomy, CAD, HTN, HPL, hypothyroidism , lumbar compression fracture. Presents with progressive lower back pain. He had a PET scan one day prior which precipitated his pain due to positioning. He denies any current CP, SOB, nausea, vomiting, dysuria or fevers. 1) Back pain - has responded well to Dilaudid. He was not responding well to Tramadol at home. Long-term narcotic use may be advisable fo this pt as long as he can tolerate it. He is not a candidate for intervention. We will start him on Percocet and request a PT/OT consult. If he is unable to ambulate, he may be a candidate for short-term rehab. 2) CAD - no evidence of ACS - cont statin therapy 3) Hypothyroidism - cont Synthroid 4) CA - f/u with oncology Full code - Heparin prophylaxis Total time for this admit including review of labs, meds, imaging, records - discussion with pt, family and ER attending - 34 min Resuscitation Status VTE Prophylaxis Will order VTE Prophylaxis: Yes
--- NOTE | 2017-06-25 17:46 | EMERGENCY ROOM VISIT NOTE ---
History Report prepared by Vance: Linda Gamboa Under the Supervision of: Dr. Bharath Lea D.O. First contact with patient: 12:31 Chief Complaint: BACK PAIN Stated Complaint: BACK PAIN History of Present Illness The patient is an 81 year old male who presents to the Emergency Room with complaints of worsening back pain starting yesterday. The patient states that he has a compression fracture from pushing a cart over 3 weeks ago. He states that he has cancer in his colon that has spread to his liver and lungs. He reports that he had a PET scan yesterday that he believes made his back pain worse. He notes that it is the same back pain as when he had the compression fracture. The patient currently rates his pain as a 3/10 in severity. He states that the pain is worse with movement. He notes that the Morphine given on the way in helped him. The patient denies tingling, weakness, numbness in his legs, cough, runny nose, chest pain, abdominal pain, urinary symptoms, and recent trauma or falls. The patient notes that he is on chemotherapy two weeks on and two weeks off. He states that he is currently off now. Source of History: patient Onset: yesterday Position: back Symptom Intensity: 3/10 Quality: other (similar to compression fracture) Timing: worsening Modifying Factors (Worsening): movement Modifying Factors (Relieving): other (Morphine) Associated Symptoms: No cough, No chest pain, No abdominal pain, No urinary symptoms, No weakness, No numbness Note: The patient denies tingling and runny nose. Review of Systems See HPI for pertinent positives & negatives. A total of 10 systems reviewed and were otherwise negative. Past Medical & Surgical Medical Problems: (1) Colon cancer (2) Colon carcinoma (3) Coronary artery disease (4) Diarrhea (5) Hip fracture (6) Hypercholesteremia (7) Hypertension (8) Hypothyroidism (9) Ingrown nail of great toe of left foot (10) Intractable back pain (11) Kidney stones (12) Myocardial infarct (13) Pleural effusion (14) SBO (small bowel obstruction) (15) Vertigo Family History Cancer Diabetes mellitus FHx: heart disease FHx: kidney disease/stones Social History Smoking Status: Former Smoker Alcohol Use: none Drug Use: none Marital Status: Housing Status: lives with significant other Occupation Status: retired Current/Historical Medications Scheduled Acetaminophen (Tylenol), 500 MG PO UD Capecitabine (Capecitabine), 500 MG PO BID UD Dronabinol (Dronabinol), 2.5 MG PO BID Ferrous Sulfate (Iron), 325 MG PO DAILY Levothyroxine Sodium (Levothyroxine Sodium), 112 MCG PO DAILY Losartan Potassium (Losartan Potassium), 50 MG PO DAILY Magnesium Oxide (Mag-Ox), 400 MG PO DAILY Nutritional Supplements (Boost), 1 CAN PO BID Omeprazole (Prilosec), 20 MG PO QAM Simvastatin (Simvastatin), 40 MG PO QPM Tamsulosin HCl (Tamsulosin HCl), 0.4 MG PO QD@1200 Scheduled PRN Nitroglycerin (Nitrostat), 0.4 MG UT UD PRN for Chest Pain Ondansetron (Ondansetron HCl), 8 MG PO Q8 PRN for Nausea Tramadol HCl (Tramadol HCl), 50 MG PO Q8 PRN for Pain Allergies Coded Allergies: Clarithromycin (Verified Allergy, Severe, "MAJOR RXN" ?, 06/25/17) Penicillins (Verified Allergy, Severe, "MAJOR RXN" ?, 06/25/17) Sulfa Antibiotics (Verified Allergy, Severe, "SULFA DRUGS": "MAJOR RXN"?, 06/25/17) Sulfonylureas (Verified Allergy, Intermediate, RASH, 06/25/17) Cephalosporins (Verified Allergy, Unknown, ?, 06/25/17) Streptokinase (Verified Allergy, Unknown, ?, 06/25/17) Codeine (Verified Adverse Reaction, Mild, NAUSEA / VOMITING, 06/25/17) Diltiazem (Verified Adverse Reaction, Mild, FLUSHING, 06/25/17) Morphine (Verified Adverse Reaction, Mild, N/V, 06/25/17) Physical Exam Vital Signs Date Time Temp Pulse Resp B/P (MAP) Pulse Ox O2 Delivery O2 Flow Rate FiO2 06/25/17 15:59 88 18 111/63 92 Room Air 06/25/17 14:22 86 16 108/64 93 Room Air 06/25/17 12:39 36.9 94 18 113/75 94 Room Air Physical Exam GENERAL: Sitting up in bed, alert, chronically ill-appearing, mild distress, non -toxic EYE EXAM: normal conjunctiva. OROPHARYNX: no exudate, no erythema, lips, buccal mucosa, and tongue normal and mucous membranes are moist NECK: supple, no nuchal rigidity, no adenopathy, non-tender LUNGS: Clear to auscultation. Normal chest wall mechanics HEART: no murmurs, S1 normal and S2 normal ABDOMEN: abdomen soft, non-tender, normo-active bowel sounds, no masses, no rebound or guarding. Ostomy located infraumbilically. BACK: Back is symmetrical on inspection and there is no deformity, acute midline tenderness from mid thoracic to lower lumbar, no CVA tenderness. SKIN: no rashes and no bruising UPPER EXTREMITIES: upper extremities are grossly normal. LOWER EXTREMITIES: No pitting edema. Flexion and extension of the hips, knees, ankles, and EHL 5/5 bilaterally. Gross sensation is intact. DPs are 2/4 bilateral. Patellar and Achilles reflexes are 2/4 bilateral NEURO EXAM: Normal sensorium, cranial nerves II-XII grossly intact, normal speech, no gross weakness of arms. Medical Decision & Procedures ER Provider Diagnostic Interpretation: Radiology results as stated below per my review and the radiologist's interpretation: PELVIS ONE VIEW HISTORY: back pain COMPARISON: Pelvis 08/09/2014. FINDINGS: The bones are osteopenic. Deformity within the right pubic ring favors an old, healed fracture. No definite acute fracture or dislocation within the pelvis or hips. Mild osteoarthritis within the left hip. The visualized sacrum appears intact. Pelvic calcifications remain unchanged. There is a right hip hemiarthroplasty. The hardware appears intact. IMPRESSION: 1. No definite fracture or dislocation within the pelvis or hips. 2. Mild deformity within the right pubic ring favoring an old, healed fracture. 3. Diffuse osteopenia. 4. Right hip hemiarthroplasty. The hardware appears intact. Electronically signed by: Yunier Corona M.D. 06/25/2017 3:59 PM Dictated Date/Time: 06/25/2017 3:56 PM LUMBAR SPINE 2 OR 3 VIEWS CLINICAL HISTORY: severe back pain COMPARISON STUDY: CT scan dated June 10, 2017 FINDINGS: Subacute L2 and L5 compression fractures are again evident. The L2 fracture appears slightly progressive. The bones are osteopenic. There are no subluxations. There is no pathologic bowel dilatation. There is scattered opaque densities throughout the bowel. There is mild fecal retention. There are multiple pelvic basin calcifications. IMPRESSION: L2 and L5 vertebral body fractures are again noted. There is slight progressive loss in height of the L2 vertebral body. Electronically signed by: Oscar Gentile M.D. 06/25/2017 2:00 PM Dictated Date/Time: 06/25/2017 1:56 PM THORACIC SPINE 3 VIEWS ROUTINE HISTORY: 81 years-old Male severe back pain acute severe back pain COMPARISON: Lumbar spine radiographs of same day, thoracic spine radiograph 06/03/2017, CT thoracic spine 06/10/2017 TECHNIQUE: 3 views of the thoracic spine FINDINGS: Bones appear moderately demineralized. Chronic compression deformities of the T8 and T10 vertebral bodies appear unchanged. T1 is partially obscured by the patient's shoulders. No new acute fracture or subluxation is identified. Mild dextroscoliosis of the midthoracic spine. Atherosclerosis of the aorta. Mild biapical pleural thickening/pleural parenchymal scarring. Mild left hemidiaphragm elevation. Multilevel mild spondylitic spurring is noted without significant intervertebral disc space narrowing. IMPRESSION: 1. No acute fracture or subluxation. 2. Unchanged appearance of the chronic compression deformities at T8 and T10. The above report was generated using voice recognition software. It may contain grammatical, syntax or spelling errors. Electronically signed by: Tyrese Savage M.D. 06/25/2017 2:00 PM Dictated Date/Time: 06/25/2017 1:56 PM Laboratory Results 06/25/17 12:45 Red Blood Count 4.08, Mean Corpuscular Volume 85.5, Mean Corpuscular Hemoglobin 28.4, Mean Corpuscular Hemoglobin Concent 33.2, Mean Platelet Volume 9.2, Neutrophils (%) (Auto) 80.0, Lymphocytes (%) (Auto) 12.2, Monocytes (%) (Auto) 7.3, Eosinophils (%) (Auto) 0.0, Basophils (%) (Auto) 0.1, Neutrophils # (Auto) 9.46, Lymphocytes # (Auto) 1.45, Monocytes # (Auto) 0.87, Eosinophils # (Auto) 0.00, Basophils # (Auto) 0.01 06/25/17 12:45 Test 06/25/17 12:45 06/25/17 16:45 White Blood Count 11.84 K/uL (4.8-10.8) Red Blood Count 4.08 M/uL (4.7-6.1) Hemoglobin 11.6 g/dL (14.0-18.0) Hematocrit 34.9 % (42-52) Mean Corpuscular Volume 85.5 fL (80-100) Mean Corpuscular Hemoglobin 28.4 pg (25-34) Mean Corpuscular Hemoglobin Concent 33.2 g/dl (32-36) Platelet Count 574 K/uL (130-400) Mean Platelet Volume 9.2 fL (7.4-10.4) Neutrophils (%) (Auto) 80.0 % Lymphocytes (%) (Auto) 12.2 % Monocytes (%) (Auto) 7.3 % Eosinophils (%) (Auto) 0.0 % Basophils (%) (Auto) 0.1 % Neutrophils # (Auto) 9.46 K/uL (1.4-6.5) Lymphocytes # (Auto) 1.45 K/uL (1.2-3.4) Monocytes # (Auto) 0.87 K/uL (0.11-0.59) Eosinophils # (Auto) 0.00 K/uL (0-0.5) Basophils # (Auto) 0.01 K/uL (0-0.2) RDW Standard Deviation 71.4 fL (36.4-46.3) RDW Coefficient of Variation 22.7 % (11.5-14.5) Immature Granulocyte % (Auto) 0.4 % Immature Granulocyte # (Auto) 0.05 K/uL (0.00-0.02) Anisocytosis PRESENT Ovalocytes 1+ Anion Gap 12.0 mmol/L (3-11) Est Creatinine Clear Calc Drug Dose 44.7 ml/min Estimated GFR () 87.2 Estimated GFR (Non- 75.2 BUN/Creatinine Ratio 18.1 (10-20) Calcium Level 9.2 mg/dl (8.5-10.1) Total Bilirubin 0.5 mg/dl (0.2-1) Direct Bilirubin 0.1 mg/dl (0-0.2) Aspartate Amino Transf (AST/SGOT) 26 U/L (15-37) Alanine Aminotransferase (ALT/SGPT) 24 U/L (12-78) Alkaline Phosphatase 177 U/L (45-117) Total Protein 7.8 gm/dl (6.4-8.2) Albumin 2.7 gm/dl (3.4-5.0) Lipase 53 U/L (73-393) Urine Color YELLOW Urine Appearance CLOUDY (CLEAR) Urine pH 5.0 (4.5-7.5) Urine Specific [place] 1.024 (1.000-1.030) Urine Protein TRACE (NEG) Urine Glucose (UA) NEG (NEG) Urine Ketones 2+ (NEG) Urine Occult Blood NEG (NEG) Urine Nitrite NEG (NEG) Urine Bilirubin NEG (NEG) Urine Urobilinogen NEG (NEG) Urine Leukocyte Esterase NEG (NEG) Urine WBC (Auto) 1-5 /hpf (0-5) Urine RBC (Auto) 0-4 /hpf (0-4) Urine Hyaline Casts (Auto) 10-30 /lpf (0-5) Urine Epithelial Cells (Auto) 20-30 /lpf (0-5) Urine Bacteria (Auto) NEG (NEG) Laboratory results per my review. Medications Administered Medications (Trade) Dose Ordered Sig/Lenka Route Start Time Stop Time Status Last Admin Dose Admin Sodium Chloride 1,000 ml @ 999 mls/hr Q1H1M STAT IV 06/25/17 12:41 06/25/17 13:41 DC 06/25/17 13:09 999 MLS/HR Hydromorphone HCl (Dilaudid Inj) 0.5 mg NOW STAT IV 06/25/17 12:41 06/25/17 12:44 DC 06/25/17 13:10 0.5 MG Hydromorphone HCl (Dilaudid Inj) 0.5 mg NOW STAT IV 06/25/17 16:34 06/25/17 16:36 DC 06/25/17 17:14 0.5 MG ED Course ED COURSE: Vital signs were reviewed and showed they were normal. The patients medical record was reviewed. The patient had a CT performed on the second of this month that revealed a compression fracture at T8 and T10. There was also an acute lumbar fracture at L2. The above diagnostic studies were performed and reviewed. ED treatments and interventions as stated above. 1233: The patient was evaluated in room A3. A complete history and physical examination was performed. 1241: Ordered Dilaudid Inj 0.5 mg IV, NSS 1000 ml @ 999 mls/hr IV. 1443: I reevaluated the patient and he is doing okay. 1459: I spoke to Dr. Aden CHAPMAN who is going to get him an outpatient appointment. 1632: Upon reevaluation, the patient is resting comfortably.I discussed my findings with the patient and he understands and agrees with the treatment plan. Based on the patients age, coexisting illnesses, exam and lab findings the decision to treat as an inpatient was made. The patient remained stable while under my care. The patient will be evaluated for further management. 1633: I reviewed the patient's case with Dr. Landry Hospitalist. He will evaluate the patient for further management. 1634: Ordered Dilaudid Inj 0.5 mg IV. Medical Decision Differential diagnoses includes but is not limited to lumbar radiculopathy, kidney stone, muscle strain, facture, cauda equina, mass, and disc herniation. Patient is an 81-year-old male with a past medical history of metastatic cancer on intermittent chemo that presents the ER for severe back pain. He does have 4 fractures which were found previously 1 of which appears to be acute in the lower lumbar region. He is unable to get around due to the pain. CBC was unremarkable. BMP along with LFTs and bilirubin along with lipase was unremarkable. UA was negative. X-rays confirm presents of fractures. Discussed with orthopedics. Patient was unable to get up or move around secondary to the pain. Discussed with internal medicine, patient will be observed for further workup. Medication Reconcilliation Current Medication List: was personally reviewed by me Blood Pressure Screening Patient's blood pressure: Normal blood pressure Blood pressure disposition: Did not require urgent referral Consults Time Called: [phone] Consulting Physician: Dr. Aden CHAPMAN Returned Call: [phone] Aden CHAPMAN who is going to get him an outpatient appointment. Additional Consults: Time Called: [phone] Consulted Physician: Dr. Landry Hospitalist Returned Call: [phone] Additional Comments: I reviewed the patient's case with Dr. Landry Hospitalist. He will evaluate the patient for further management. Impression Primary Impression: Lumbar compression fracture Additional Impression: Thoracic compression fracture Scribe Attestation The scribe's documentation has been prepared under my direction and personally reviewed by me in its entirety. I confirm that the note above accurately reflects all work, treatment, procedures, and medical decision making performed by me. Departure Information Dispostion Being Evaluated By Hospitalist Referrals Sonido Riojas M.D. (PCP) Patient Instructions My [facility] Problem Qualifiers Primary Impression: Lumbar compression fracture Encounter type: initial encounter Lumbar vertebra fracture level: L2 Fracture type: closed Qualified Codes: S32.020A - Wedge compression fracture of second lumbar vertebra, initial encounter for closed fracture Additional Impression: Thoracic compression fracture Encounter type: initial encounter Fracture type: closed Qualified Codes: S22.000A - Wedge compression fracture of unspecified thoracic vertebra, initial encounter for closed fracture
[2017-06-25 18:25] VITALS: BP 146/62; PULSE 96; TEMP 36.9; O2SAT 93; BMI 16.5
[2017-06-25] MEDS ORDERED: IV FLUIDS COMPLETED PRN (18:45)
[2017-06-25] MEDS: OXYCODONE/ACETAMINOPHEN 10/325MG TAB PO PRN (19:10)
[2017-06-25] MEDS: BOOST VANILLA PO SCH (20:00)
[2017-06-25] MEDS: SIMVASTATIN 40 MG TAB PO SCH (21:09)
[2017-06-25] MEDS: DRONABINOL 2.5 MG CAP PO SCH (21:09)
[2017-06-25] MEDS: HEPARIN SOD 5000 UNIT/0.5 ML CARP SQ SCH (21:13)
[2017-06-25 23:43] VITALS: BP 115/62; PULSE 75; TEMP 36.6; O2SAT 95
[2017-06-26] VITALS (9 sets, daily range): BP systolic 92–137; BP diastolic 58–72; PULSE 67–97; TEMP 36.5–36.9; O2SAT 90–95; Ht 177.8 cm; Wt 50.0 kg
[2017-06-26] MEDS: HYDROmorphone INJ 0.5 MG/0.5 ML SYR IV PRN (04:29)
[2017-06-26] MEDS: LEVOTHYROXINE 112 MCG TAB PO SCH (06:22)
[2017-06-26] MEDS: OXYCODONE/ACETAMINOPHEN 10/325MG TAB PO PRN ×2 (06:26→13:03)
[2017-06-26] MEDS: DRONABINOL 2.5 MG CAP PO SCH ×2 (07:36→20:58)
[2017-06-26] MEDS: BOOST VANILLA PO SCH ×2 (07:36→19:38)
[2017-06-26] MEDS: FERROUS SULFATE 325 MG TAB PO SCH (07:37)
[2017-06-26] MEDS: LOSARTAN POTASSIUM 50 MG TAB PO SCH (07:37)
[2017-06-26] MEDS: MAGNESIUM OXIDE 400 MG TAB PO SCH (07:37)
[2017-06-26] MEDS: PANTOprazole SOD 40 MG TAB PO SCH (07:37)
[2017-06-26] MEDS: HEPARIN SOD 5000 UNIT/0.5 ML CARP SQ SCH ×2 (07:43→21:00)
[2017-06-26 09:05] LABS: HEMATOCRIT 35.9 % (42-52); HEMOGLOBIN 11.4 g/dL (14.0-18.0); MEAN CELL VOLUME 86.1 fL (80-100); MEAN CORPUSCULAR HEMOGLOBIN 27.3 pg (25-34); MEAN CORPUSCULAR HGB CONC 31.8 g/dl (32-36); MEAN PLATELET VOLUME 9.4 fL (7.4-10.4); PLATELET COUNT 525 K/uL (130-400); RED CELL DISTRIBUTION WIDTH CV 22.9 % (11.5-14.5); RED CELL DISTRIBUTION WIDTH SD 72.2 fL (36.4-46.3); WHITE BLOOD COUNT 9.92 K/uL (4.8-10.8)
[2017-06-26 09:36] LABS: CALCIUM 8.8 mg/dl (8.5-10.1); CREATININE 0.8 mg/dl (0.60-1.40); POTASSIUM 3.7 mmol/L (3.5-5.1)
--- NOTE | 2017-06-26 12:29 | Progress Note ---
Subjective Date of Service: June 26, 2017. Subjective Pt evaluation today including: conversation w/ patient, conversation w/ family , physical exam, lab review, review of studies, review of inpatient medication list Pain: controlled PO Intake: adequate Voiding: no voiding problems patient says his pain is better at the moment after Dilaudid IV and Percocet his family says he has appointment with Dr. Yang on 07/08, hoping to see him now since pain getting worse discussed lab results and x-ray findings patient weary of taking narcotics, explained that he may need them awaiting PT/OT evaluations do not know results of PET scan as he had it done at [facility], follows with [facility] oncology Problem List Medical Problems: (1) Altered bowel elimination due to intestinal ostomy Status: Acute (2) Closed head injury Status: Acute (3) Compression of lumbar vertebra Status: Acute (4) Compression of thoracic vertebra Status: Acute (5) Dehydration Status: Acute (6) Dehydration Status: Acute (7) Dehydration Status: Acute (8) Dehydration Status: Acute (9) Diarrhea Status: Acute (10) Fracture of ramus of right pubis Status: Acute (11) Generalized weakness Status: Acute (12) High output ileostomy Status: Acute (13) Hip fracture, right Status: Acute (14) Hyperkalemia Status: Acute (15) Hypotension Status: Acute (16) Lumbar compression fracture Status: Acute (17) Metabolic acidosis Status: Acute (18) Small bowel obstruction Status: Acute (19) Strain of thoracic region Status: Acute (20) Thoracic compression fracture Status: Acute (21) Vomiting Status: Acute Social History Problems: (1) History of bowel resection Status: Acute (2) History of bowel resection Status: Acute Review of Systems Constitutional: + weight loss (20 lbs in the past year with colon cancer), + weakness, + fatigue Musculoskeletal: + joint pain (low back pain, severe at times) All Other Systems: Reviewed and Negative Medications Current Inpatient Medications Medications (Trade) Dose Ordered Sig/Lenka Route Start Time Stop Time Status Last Admin Dose Admin Hydromorphone HCl (Dilaudid Inj) 0.5 mg Q3H PRN IV 06/25/17 17:15 07/09/17 17:14 06/26/17 04:29 0.5 MG Oxycodone/ Acetaminophen (Percocet 10-325MG Tab) 1 tab Q4H PRN PO 06/25/17 17:15 07/09/17 17:14 06/26/17 06:26 1 TAB Al Hydrox/Mg Hydrox/Simethicone (Maalox Max Susp) 15 ml Q4H PRN PO 06/25/17 17:15 07/25/17 17:14 Magnesium Hydroxide (Milk Of Magnesia Susp) 30 ml Q6H PRN PO 06/25/17 17:15 07/25/17 17:14 Ondansetron HCl (Zofran Inj) 4 mg Q6H PRN IV 06/25/17 17:15 07/25/17 17:14 Heparin Sodium (Porcine) (Heparin Sq 5000 Unit/0.5ml) 5,000 unit Q12 SQ 06/25/17 21:00 07/25/17 20:59 06/26/17 07:43 5,000 UNIT Dronabinol (Marinol Cap) 2.5 mg BID PO 06/25/17 20:00 07/25/17 20:59 06/26/17 07:36 2.5 MG Levothyroxine Sodium (Synthroid Tab) 112 mcg DAILYBB PO 06/26/17 06:30 07/26/17 06:29 06/26/17 06:22 112 MCG Losartan Potassium (coZAAR TAB) 50 mg DAILY PO 06/26/17 08:00 07/26/17 08:59 06/26/17 07:37 50 MG Magnesium Oxide (Mag-Ox Tab) 400 mg DAILY PO 06/26/17 08:00 07/26/17 08:59 06/26/17 07:37 400 MG Nitroglycerin (Nitrostat Tab) 0.4 mg UD PRN UT 06/25/17 17:15 07/25/17 17:14 Enteral Nutritional Formula (Boost) 1 can BID PO 06/25/17 20:00 07/25/17 20:59 06/26/17 07:36 1 CAN Simvastatin (Zocor Tab) 40 mg QPM PO 06/25/17 21:00 07/25/17 20:59 06/25/17 21:09 40 MG Tamsulosin HCl (Flomax Cap) 0.4 mg QD@1200 PO 06/26/17 12:00 07/26/17 11:59 Ferrous Sulfate (Feosol Tab) 325 mg DAILY PO 06/26/17 08:00 07/26/17 08:59 06/26/17 07:37 325 MG Pantoprazole Sodium (Protonix Tab) 20 mg QAM PO 06/26/17 08:00 07/26/17 08:59 06/26/17 07:37 20 MG Miscellaneous (Iv Fluids Completed) 1 ea PRN PRN N/A 06/25/17 18:45 06/25/18 18:44 Objective Vital Signs Date Time Temp Pulse Resp B/P (MAP) Pulse Ox O2 Delivery O2 Flow Rate FiO2 06/26/17 08:00 94 Room Air 06/26/17 07:35 36.6 69 18 110/67 (81) 94 Room Air 06/26/17 04:58 36.6 95 19 137/69 (91) 94 Room Air 06/26/17 00:00 Room Air 06/25/17 23:43 36.6 75 18 115/62 (79) 95 Room Air 06/25/17 18:25 36.9 96 16 146/62 93 Room Air 06/25/17 18:05 83 18 108/61 93 06/25/17 17:48 83 18 108/61 93 Room Air 06/25/17 15:59 88 18 111/63 92 Room Air 06/25/17 14:22 86 16 108/64 93 Room Air 06/25/17 12:39 36.9 94 18 113/75 94 Room Air Physical Exam General Appearance: no apparent distress, + thin Eyes: normal inspection, EOMI, sclerae normal ENT: normal ENT inspection, hearing grossly normal, pharynx normal Neck: supple, no adenopathy, no JVD, trachea midline Respiratory/Chest: chest non-tender, lungs clear, normal breath sounds, no respiratory distress, no accessory muscle use Cardiovascular: regular rate, rhythm, no edema, no gallop, no JVD, no murmur Abdomen: normal bowel sounds, non tender, soft, no organomegaly, + pertinent finding (RLQ ostomy in place, functioning well) Extremities: no pedal edema, no calf tenderness, normal capillary refill, pelvis stable, + pertinent finding (decreased flexion and extension of lower back, pain to palpation in upper lumbar region) Neurologic/Psychiatric: cloth examiner hand II-XII nml as tested, alert, normal mood/affect, oriented x 3, + motor weakness Skin: normal color, warm/dry, no rash Laboratory Results Last 24 Hours Test 06/25/17 12:45 06/25/17 16:45 06/26/17 08:51 White Blood Count 11.84 K/uL 9.92 K/uL Red Blood Count 4.08 M/uL 4.17 M/uL Hemoglobin 11.6 g/dL 11.4 g/dL Hematocrit 34.9 % 35.9 % Mean Corpuscular Volume 85.5 fL 86.1 fL Mean Corpuscular Hemoglobin 28.4 pg 27.3 pg Mean Corpuscular Hemoglobin Concent 33.2 g/dl 31.8 g/dl Platelet Count 574 K/uL 525 K/uL Mean Platelet Volume 9.2 fL 9.4 fL Neutrophils (%) (Auto) 80.0 % Lymphocytes (%) (Auto) 12.2 % Monocytes (%) (Auto) 7.3 % Eosinophils (%) (Auto) 0.0 % Basophils (%) (Auto) 0.1 % Neutrophils # (Auto) 9.46 K/uL Lymphocytes # (Auto) 1.45 K/uL Monocytes # (Auto) 0.87 K/uL Eosinophils # (Auto) 0.00 K/uL Basophils # (Auto) 0.01 K/uL RDW Standard Deviation 71.4 fL 72.2 fL RDW Coefficient of Variation 22.7 % 22.9 % Immature Granulocyte % (Auto) 0.4 % Immature Granulocyte # (Auto) 0.05 K/uL Anisocytosis PRESENT Ovalocytes 1+ Prothrombin Time 10.1 SECONDS Prothromb Time International Ratio 1.0 Sodium Level 136 mmol/L 137 mmol/L Potassium Level 3.9 mmol/L 3.7 mmol/L Chloride Level 98 mmol/L 100 mmol/L Carbon Dioxide Level 26 mmol/L 29 mmol/L Anion Gap 12.0 mmol/L 8.0 mmol/L Blood Urea Nitrogen 17 mg/dl 13 mg/dl Creatinine 0.94 mg/dl 0.80 mg/dl Est Creatinine Clear Calc Drug Dose 44.7 ml/min 50.3 ml/min Estimated GFR () 87.2 96.4 Estimated GFR (Non- 75.2 83.2 BUN/Creatinine Ratio 18.1 16.0 Random Glucose 139 mg/dl 117 mg/dl Calcium Level 9.2 mg/dl 8.8 mg/dl Total Bilirubin 0.5 mg/dl Direct Bilirubin 0.1 mg/dl Aspartate Amino Transf (AST/SGOT) 26 U/L Alanine Aminotransferase (ALT/SGPT) 24 U/L Alkaline Phosphatase 177 U/L Total Protein 7.8 gm/dl Albumin 2.7 gm/dl Lipase 53 U/L Urine Color YELLOW Urine Appearance CLOUDY Urine pH 5.0 Urine Specific Byron 1.024 Urine Protein TRACE Urine Glucose (UA) NEG Urine Ketones 2+ Urine Occult Blood NEG Urine Nitrite NEG Urine Bilirubin NEG Urine Urobilinogen NEG Urine Leukocyte Esterase NEG Urine WBC (Auto) 1-5 /hpf Urine RBC (Auto) 0-4 /hpf Urine Hyaline Casts (Auto) 10-30 /lpf Urine Epithelial Cells (Auto) 20-30 /lpf Urine Bacteria (Auto) NEG Assessment and Plan 81 y/o M Hx metastatic colon CA with a colostomy, CAD, HTN, HPL, hypothyroidism , lumbar compression fracture. Presents with progressive lower back pain. He had a PET scan one day prior which precipitated his pain due to positioning. He denies any current CP, SOB, nausea, vomiting, dysuria or fevers. - Back pain associated with compression fractures, acute exacerbation of pain after laying for PET scan has h/o compression fractures, noted that on x-ray his L2 body height was lower than in the past has appointment with Dr. Yang on 07/08, family requesting consult now, consult placed pain control with Dilaudid IV and Percocet PRN PT/OT consulted - Colon cancer: has been getting oral targeted therapy with [facility] oncology recent PET scan, unsure of results as unable to access follow up with oncology next week CAD, Hypothyroidism: chronic and stable Full code - Heparin prophylaxis
[2017-06-26] MEDS: TAMSULOSIN HCL 0.4 MG CAP PO SCH (13:02)
[2017-06-26] MEDS: ALUMINUM/MAGNESIUM/SIMETH (MAALOX MAX) 30 ML UDC PO PRN (19:41)
[2017-06-26] MEDS: SIMVASTATIN 40 MG TAB PO SCH (20:58)
[2017-06-27] MEDS: HYDROmorphone INJ 0.5 MG/0.5 ML SYR IV PRN (03:14)
[2017-06-27 04:07] VITALS: BP 93/65; PULSE 82; TEMP 36.5; O2SAT 94
[2017-06-27] MEDS: LEVOTHYROXINE 112 MCG TAB PO SCH (06:11)
[2017-06-27 07:02] VITALS: BP 93/57; PULSE 73; TEMP 36.4; O2SAT 91
[2017-06-27] MEDS: PANTOprazole SOD 40 MG TAB PO SCH (07:45)
[2017-06-27] MEDS: MAGNESIUM OXIDE 400 MG TAB PO SCH (07:45)
[2017-06-27] MEDS: DRONABINOL 2.5 MG CAP PO SCH (07:45)
[2017-06-27] MEDS: LOSARTAN POTASSIUM 50 MG TAB PO SCH (07:46)
[2017-06-27] MEDS: BOOST VANILLA PO SCH (07:46)
[2017-06-27] MEDS: TAMSULOSIN HCL 0.4 MG CAP PO SCH (07:46)
[2017-06-27] MEDS: HEPARIN SOD 5000 UNIT/0.5 ML CARP SQ SCH (07:49)
[2017-06-27 08:00] VITALS: O2SAT 92
[2017-06-27] MEDS ORDERED: OXYC-57 PO (08:08)
[2017-06-27] MEDS: FERROUS SULFATE 325 MG TAB PO SCH (09:02)
--- NOTE | 2017-06-27 10:46 | Discharge Instructions ---
Discharge Instructions Date of Service June 27, 2017. Admission Reason for Admission: Intractable Back Pain Discharge Discharge Diagnosis / Problem: Intractable Back Pain related to Compression Fracture Discharge Goals Goal(s): Decrease discomfort, Improve function, Increase independence Activity Recommendations Activity Limitations: resume your previous activity . Instructions / Follow-Up Instructions / Follow-Up Back Pain with Compression Fractures: - Continue Percocet 1-2 tablets every six hours as needed for pain. This can be monitored and if needed new medications can be given if Percocet does not work. This medication is stronger than the Tramadol you had previously and can be more sedating (makes your drowsy). - Recommend to always use your cane or walker. May be even better to use the walker more to just have added support - Will send a prescription over for a hospital bed to help promote transfers and comfort. - Will see if we can get an appointment with Dr. Celia arnold for evaluation. Our case monitor may call you on Thursday. - Likely the best approach is a non-surgical approach which the goal will be strength training and pain management - Could even try over the counter lidocaine patches to see if this works for some added relief Home Medications: - Please continue your home medications as previously prescribed. We did not make any adjustments Disposition: - You have been set up with home services to have them come to your home and help out - Will also have a follow-up appointment with your family doctor and our case monitor will call you likely on Thursday for this - Script was sent over to get you set up with a hospital bed Current Hospital Diet Patient's current hospital diet: Regular Diet Discharge Diet Recommended Diet: Regular Diet Pending Studies Studies pending at discharge: no Medical Emergencies . Who to Call and When: Medical Emergencies: If at any time you feel your situation is an emergency, please call 911 immediately. . Non-Emergent Contact Non-Emergency issues call your: Primary Care Provider Call Non-Emergent contact if: you have a fever, your pain is concerning you, you have any medication questions . . "Provider Documentation" section prepared by Brandee Dennis. .
--- NOTE | 2017-06-27 11:11 | Discharge Summary ---
Discharge Summary Date of Service June 27, 2017. Discharge Summary Admission Date: June 25, 2017 at 17:16 Discharge Date: June 27, 2017 Discharge Disposition: Home with services Principal Diagnosis: Intractable Back Pain from Compression Fxs Problems/Secondary Diagnoses: 1) CAD - ID 2) Colon CA - he has held chemo for the past 2 weeks pending an oncology appt and review or recent PET scan results 3) Hyponatremia 4) Lumbar compression fractures L2,L5 5) HTN 6) HPL 7) Hypothyroidism 8) S/P Colostomy Immunizations: Have You Had Influenza Vaccine: Yes Influenza Vaccine Date: Nov 03, 2012 History of Tetanus Vaccine?: UTD History of Pneumococcal: Yes History of Hepatitis B Vaccine: Unknown Procedures: THORACIC SPINE 3 VIEWS ROUTINE FINDINGS: Bones appear moderately demineralized. Chronic compression deformities of the T8 and T10 vertebral bodies appear unchanged. T1 is partially obscured by the patient's shoulders. No new acute fracture or subluxation is identified. Mild dextroscoliosis of the midthoracic spine. Atherosclerosis of the aorta. Mild biapical pleural thickening/pleural parenchymal scarring. Mild left hemidiaphragm elevation. Multilevel mild spondylitic spurring is noted without significant intervertebral disc space narrowing. IMPRESSION: 1. No acute fracture or subluxation. 2. Unchanged appearance of the chronic compression deformities at T8 and T10. LUMBAR SPINE 2 OR 3 VIEWS FINDINGS: Subacute L2 and L5 compression fractures are again evident. The L2 fracture appears slightly progressive. The bones are osteopenic. There are no subluxations. There is no pathologic bowel dilatation. There is scattered opaque densities throughout the bowel. There is mild fecal retention. There are multiple pelvic basin calcifications. IMPRESSION: L2 and L5 vertebral body fractures are again noted. There is slight progressive loss in height of the L2 vertebral body. PELVIS ONE VIEW FINDINGS: The bones are osteopenic. Deformity within the right pubic ring favors an old, healed fracture. No definite acute fracture or dislocation within the pelvis or hips. Mild osteoarthritis within the left hip. The visualized sacrum appears intact. Pelvic calcifications remain unchanged. There is a right hip hemiarthroplasty. The hardware appears intact. IMPRESSION: 1. No definite fracture or dislocation within the pelvis or hips. 2. Mild deformity within the right pubic ring favoring an old, healed fracture. 3. Diffuse osteopenia. 4. Right hip hemiarthroplasty. The hardware appears intact. Consultations: 1. PT/OT 2. Orthopedic Spine - Dr. Yang Medication Reconciliation New Medications: Oxycodone/Acetaminophen 5MG/325MG (Percocet 5MG/325MG) Tab 1-2 TABLETS PO Q6 PRN for Pain, #60 TAB PAIN Continued Medications: Acetaminophen (Tylenol) 500 Mg Tab 500 MG PO UD, TAB TAKE PER PACKAGE DIRECTIONS Capecitabine (Capecitabine) 500 Mg Tab 500 MG PO BID UD TAKE ONE TABLET TWICE DAILY FOR 14 DAYS ON THEN REMAIN OFF THIS MEDICATION FOR 7 DAYS AND REPEAT CYCLE Dronabinol (Dronabinol) 2.5 Mg Cap 2.5 MG PO BID Ferrous Sulfate (Iron) 325 Mg Tab 325 MG PO DAILY Levothyroxine Sodium (Levothyroxine Sodium) 112 Mcg Tab 112 MCG PO DAILY Losartan Potassium (Losartan Potassium) 50 Mg Tab 50 MG PO DAILY Magnesium Oxide (Mag-Ox) 400 Mg Tab 400 MG PO DAILY Nitroglycerin (Nitrostat) 0.4 Mg Tab 0.4 MG UT UD PRN for Chest Pain Nutritional Supplements (Boost) 1 Liq Liq 1 CAN PO BID Omeprazole (Prilosec) 20 Mg Cap 20 MG PO QAM Ondansetron (Ondansetron HCl) 8 Mg Tab 8 MG PO Q8 PRN for Nausea TAKE THIS PRIOR TO CHEMO MEDICATION Simvastatin (Simvastatin) 40 Mg Tab 40 MG PO QPM Tamsulosin HCl (Tamsulosin HCl) 0.4 Mg Cap 0.4 MG PO QD@1200 Tramadol HCl (Tramadol HCl) 50 Mg Tab 50 MG PO Q8 PRN for Pain Discharge Exam Review of Systems: Constitutional: + weakness, + fatigue, No fever, No chills Respiratory: No cough Cardiovascular: No chest pain Musculoskeletal: + joint pain (low back pain), No calf pain Genitourinary - Male: No dysuria Hematologic / Lymphatic: No abnormal bleeding/bruising Physical Exam: General Appearance: no apparent distress, + thin Eyes: sclerae normal ENT: hearing grossly normal, pharynx normal Neck: supple, no JVD, trachea midline Respiratory/Chest: lungs clear, normal breath sounds, no respiratory distress, no accessory muscle use Cardiovascular: regular rate, rhythm Abdomen / GI: normal bowel sounds, non tender, soft, + pertinent finding ( RLQ ostomy) Extremities: no calf tenderness, no pedal edema Neurologic/Psychiatric: alert Skin: normal color Hospital Course ADMISSION: 81 y/o M Hx metastatic colon CA with a colostomy, CAD, HTN, HPL, hypothyroidism, lumbar compression fracture. Presents with progressive lower back pain. He had a PET scan one day prior which precipitated his pain due to positioning. He denies any current CP, SOB, nausea, vomiting, dysuria or fevers. HOSPITAL COURSE: Intractable Back Pain 2/2 Compression Fx: - Had recent PET scan through [facility] - unfortunately unable to obtain access to see if there is any metastatic contribution to his pain - Studies showing thoracic and lumber compression fractures with progressive bone height loss of L2 - Is due to see Dr. Yang on 07/08 - suspect that this would be conservative measures - Started on Percocet 1-2 tabs Q6H PRN pain and may need to be further adjusted - did respond well to Dilaudid in the hospital and could also consider this if Percocet is not enough - Plan for home services with PT/OT to help work on strength training - Rx sent for a hospital bed. Patient would benefit from a bed that will allow for at least 30 degree elevations. Given multiple levels of compression fractures and progression of such a hospital bed would facilitate comfort and assistance with transfers. Given active treatment for his underlying malignancy he does present with some generalized weakness and some decrease in motorized function and again would benefit from a hospital bed. Disposition: - Home medications continued as previously prescribed without adjustments - Will have [facility]HS to see patient at home and work on functional ability; Rx sent for hospital bed - auto repair shop manager to assist with PCP follow-up in next 7-10 days if possible Total Time Spent: Greater than 30 minutes This includes examination of the patient, discharge planning, medication reconciliation, and communication with other providers. Discharge Instructions Please refer to the electronic Patient Visit Report (Discharge Instructions) for additional information. Additional Copies To Sonido Riojas M.D.
--- NOTE | 2017-06-27 11:13 | Orthopedic Consultation ---
Orthopedic Consultation Date of Consultation: June 27, 2017. Attending Physician: Suresh Bryan D.O. Reason for Consultation: Back pain History of Present Illness This is an 81-year-old male presents with worsening back pain. He is being managed for colon cancer. He does have known compression fractures but feels his symptoms are worse. He states his symptoms are mostly in the lumbar region. He denies any thoracic discomfort denies any numbness tingling or pain in the lower extremities. Past Medical/Surgical History Medical Problems: (1) Altered bowel elimination due to intestinal ostomy Status: Acute (2) Closed head injury Status: Acute (3) Compression of lumbar vertebra Status: Acute (4) Compression of thoracic vertebra Status: Acute (5) Dehydration Status: Acute (6) Dehydration Status: Acute (7) Dehydration Status: Acute (8) Dehydration Status: Acute (9) Diarrhea Status: Acute (10) Fracture of ramus of right pubis Status: Acute (11) Generalized weakness Status: Acute (12) High output ileostomy Status: Acute (13) Hip fracture, right Status: Acute (14) Hyperkalemia Status: Acute (15) Hypotension Status: Acute (16) Lumbar compression fracture Status: Acute (17) Metabolic acidosis Status: Acute (18) Small bowel obstruction Status: Acute (19) Strain of thoracic region Status: Acute (20) Thoracic compression fracture Status: Acute (21) Vomiting Status: Acute Social History Problems: (1) History of bowel resection Status: Acute (2) History of bowel resection Status: Acute Family History Cancer Diabetes mellitus FHx: heart disease FHx: kidney disease/stones Social History Smoking Status: Unknown if Ever Smoked Drug Use: none Marital Status: Housing Status: lives with significant other Occupation Status: retired Allergies Coded Allergies: Clarithromycin (Verified Allergy, Severe, "MAJOR RXN" ?, 06/25/17) Penicillins (Verified Allergy, Severe, "MAJOR RXN" ?, 06/25/17) Sulfa Antibiotics (Verified Allergy, Severe, "SULFA DRUGS": "MAJOR RXN"?, 06/25/17) Sulfonylureas (Verified Allergy, Intermediate, RASH, 06/25/17) Cephalosporins (Verified Allergy, Unknown, ?, 06/25/17) Streptokinase (Verified Allergy, Unknown, ?, 06/25/17) Codeine (Verified Adverse Reaction, Mild, NAUSEA / VOMITING, 06/25/17) Diltiazem (Verified Adverse Reaction, Mild, FLUSHING, 06/25/17) Morphine (Verified Adverse Reaction, Mild, N/V, 06/25/17) Home Medications Scheduled Acetaminophen (Tylenol), 500 MG PO UD Capecitabine (Capecitabine), 500 MG PO BID UD Dronabinol (Dronabinol), 2.5 MG PO BID Ferrous Sulfate (Iron), 325 MG PO DAILY Levothyroxine Sodium (Levothyroxine Sodium), 112 MCG PO DAILY Losartan Potassium (Losartan Potassium), 50 MG PO DAILY Magnesium Oxide (Mag-Ox), 400 MG PO DAILY Nutritional Supplements (Boost), 1 CAN PO BID Omeprazole (Prilosec), 20 MG PO QAM Simvastatin (Simvastatin), 40 MG PO QPM Tamsulosin HCl (Tamsulosin HCl), 0.4 MG PO QD@1200 Scheduled PRN Nitroglycerin (Nitrostat), 0.4 MG UT UD PRN for Chest Pain Ondansetron (Ondansetron HCl), 8 MG PO Q8 PRN for Nausea Oxycodone/Acetaminophen 5MG/325MG (Percocet 5MG/325MG), 1-2 TABLETS PO Q6 PRN for Pain Tramadol HCl (Tramadol HCl), 50 MG PO Q8 PRN for Pain Current Inpatient Medications Current Inpatient Medications Medications (Trade) Dose Ordered Sig/Lenka Route Start Time Stop Time Status Last Admin Dose Admin Hydromorphone HCl (Dilaudid Inj) 0.5 mg Q3H PRN IV 06/25/17 17:15 07/09/17 17:14 06/27/17 03:14 0.5 MG Oxycodone/ Acetaminophen (Percocet 10-325MG Tab) 1 tab Q4H PRN PO 06/25/17 17:15 07/09/17 17:14 06/26/17 13:03 1 TAB Al Hydrox/Mg Hydrox/Simethicone (Maalox Max Susp) 15 ml Q4H PRN PO 06/25/17 17:15 07/25/17 17:14 06/26/17 19:41 15 ML Magnesium Hydroxide (Milk Of Magnesia Susp) 30 ml Q6H PRN PO 06/25/17 17:15 07/25/17 17:14 Ondansetron HCl (Zofran Inj) 4 mg Q6H PRN IV 06/25/17 17:15 07/25/17 17:14 Heparin Sodium (Porcine) (Heparin Sq 5000 Unit/0.5ml) 5,000 unit Q12 SQ 06/25/17 21:00 07/25/17 20:59 06/27/17 07:49 5,000 UNIT Dronabinol (Marinol Cap) 2.5 mg BID PO 06/25/17 20:00 07/25/17 20:59 06/27/17 07:45 2.5 MG Levothyroxine Sodium (Synthroid Tab) 112 mcg DAILYBB PO 06/26/17 06:30 07/26/17 06:29 06/27/17 06:11 112 MCG Losartan Potassium (coZAAR TAB) 50 mg DAILY PO 06/26/17 08:00 07/26/17 08:59 06/27/17 07:46 50 MG Magnesium Oxide (Mag-Ox Tab) 400 mg DAILY PO 06/26/17 08:00 07/26/17 08:59 06/27/17 07:45 400 MG Nitroglycerin (Nitrostat Tab) 0.4 mg UD PRN UT 06/25/17 17:15 07/25/17 17:14 Simvastatin (Zocor Tab) 40 mg QPM PO 06/25/17 21:00 07/25/17 20:59 06/26/17 20:58 40 MG Tamsulosin HCl (Flomax Cap) 0.4 mg QD@1200 PO 06/26/17 12:00 07/26/17 11:59 06/27/17 07:46 0.4 MG Ferrous Sulfate (Feosol Tab) 325 mg DAILY PO 06/26/17 08:00 07/26/17 08:59 06/27/17 09:02 325 MG Pantoprazole Sodium (Protonix Tab) 20 mg QAM PO 06/26/17 08:00 07/26/17 08:59 06/27/17 07:45 20 MG Miscellaneous (Iv Fluids Completed) 1 ea PRN PRN N/A 06/25/17 18:45 06/25/18 18:44 Enteral Nutritional Formula (Boost) 1 can BID PO 06/26/17 20:00 07/26/17 19:59 06/27/17 07:46 1 CAN Physical Exam Date Time Temp Pulse Resp B/P (MAP) Pulse Ox O2 Delivery O2 Flow Rate FiO2 06/27/17 08:00 92 Room Air 06/27/17 07:02 36.4 73 18 93/57 (69) 91 Room Air 06/27/17 04:07 36.5 82 19 93/65 (74) 94 Room Air 06/27/17 00:03 Room Air 06/26/17 23:22 36.9 85 16 101/65 (77) 90 Room Air 06/26/17 19:33 93 18 92/58 (69) 94 Room Air 06/26/17 16:00 93 Room Air 06/26/17 15:38 36.6 83 18 93/60 (71) 93 Room Air 06/26/17 12:16 36.5 67 18 100/65 (77) 93 Room Air 06/26/17 11:45 97 95 On exam he is sitting in bed. His daughter is at the bedside. He has reasonable strength testing lower extremity's. He was up and ambulatory earlier today with physical therapy in the halls. Assessment & Plan Assessment lumbar compression fractures. Plan at this time a long discussion with the patient and his daughter reviewing his clinical picture and course. At this time we will very much like to avoid surgical intervention. The concern of kyphoplasty is that it does place adjacent level stresses that could cause adjacent level fracture. If short course of oral narcotics as required for pain control this is reasonable. I did emphasize that if his symptoms fail to improve the next 2-3 weeks we may at that time need to consider possible surgical intervention. Unfortunately with his colostomy he is not a candidate for a brace. He is scheduled to see me in my office in next 2 weeks to make further assessment.
[2017-06-27] MEDS: OXYCODONE/ACETAMINOPHEN 10/325MG TAB PO PRN (11:25)
[2017-06-27] MEDS: ALUMINUM/MAGNESIUM/SIMETH (MAALOX MAX) 30 ML UDC PO PRN (11:57)
[2017-06-27 12:44] VITALS: BP 93/57; PULSE 73; TEMP 36.4; O2SAT 92
== END 2017-06-27 13:14 | disposition home health service (06) ==
LOC: EDBD 12:29 → C.EDA 12:30 → C.4E 17:16 → ENRESERV 17:40
PROVIDERS: ADMIT Internal Medicine; ATTEND Internal Medicine
DX: M54.5 Low back pain (principal); M48.56XS Collapsed vertebra, not elsewhere classified, lumbar region, sequela of fracture; I25.10 Atherosclerotic heart disease of native coronary artery without angina pectoris; C18.9 Malignant neoplasm of colon, unspecified; C78.7 Secondary malignant neoplasm of liver and intrahepatic bile duct; C78.00 Secondary malignant neoplasm of unspecified lung; I10 Essential (primary) hypertension; E03.9 Hypothyroidism, unspecified; Z93.3 Colostomy status; E78.5 Hyperlipidemia, unspecified; I25.2 Old myocardial infarction; Z88.1 Allergy status to other antibiotic agents; Z83.3 Family history of diabetes mellitus; Z88.8 Allergy status to other drugs, medicaments and biological substances; Z88.2 Allergy status to sulfonamides; Z88.5 Allergy status to narcotic agent

== ENCOUNTER → 2017-09-01 | Outpatient (CLI) | payer OTHER ==
[~2017-09-01] MED LIST changes: -ASPI81TA28 PO; -CAPE1TAB3 PO; +CYTM5 PO; -CZR50 PO; -DRON2.5C10 PO; +ERYOPO OPB; -FERR1TAB23 PO; +FURO-85 PO; -LEVO112T4 PO; +LORA-741 PO; -MAGN400T5 PO; +METO1TAB54 PO; -OMEP20CA9 PO; -ONDA-63 PO; +ONDA8TAB62 SL; +PANT40TA PO; +RXNS10 PO; +SERT25TA PO; +SYN125 PO; -ULT50 PO; +VLTG EXT; -ZCR40 PO
== END | disposition home or self-care (01) ==
LOC: C.LABSPEC 16:27
PROVIDERS: ATTEND Physician Assistant Medical
DX: R39.9 Unspecified symptoms and signs involving the genitourinary system (principal)